=== PATIENT | female | born 1960 | race Caucasian/White ===

== ENCOUNTER 2019-06-17 20:03 | Emergency (ER) | payer MEDICARE, MEDICAID, SELFPAY ==
--- NOTE | ~2019-06-17 | XR_ITS ---
XR chest 1V portable DATE: 06/17/2019 20:35 INDICATION: Dyspnea, cough. History of COPD. TECHNIQUE: Portable upright AP chest on 06/17/2019 at 2033 hours COMPARISON: 07/09/2018 portable upright AP chest FINDINGS: There is borderline heart size, which is not optimally evaluated on AP projection because o f magnification. There is pulmonary vascular redistribution which may indicate mild pulmonary venous hypertension. There is mild patchy infiltrate and/atelectasis in the right lower lung zone. There is minimal discoi d atelectasis or scarring in the left lower lung. IMPRESSION: Borderline heart size, pulmonary vascular redistribution, which may indicate mild congest henrry change Patchy infiltrate and/atelectasis in the right lower lung primarily Reviewed, dictated and finalized at location A. IMPRESSION: Borderline heart size, pulmonary vascular redistribution, which may indicate mild congestive change Patchy infiltrate and/atelectasis in the right lower lung primarily
--- NOTE | ~2019-06-17 | CT_ITS ---
EXAMINATION: CT abdomen pelvis wo con DATE: 06/17/2019 20:51 INDICATION: Abdominal pain TECHNIQUE: Computed tomography (CT) of the abdomen and pelvis was performed without intravenous contr ast. Automated exposure control and iterative reconstruction technique were employed. Exam dose: 148 9.56 mGy-cm total exam DLP. COMPARISON: 05/11/2016 CT scan of the abdomen and pelvis FINDINGS: There is discoid atelectasis and/or scarring in the lower lung zones, most prominent in the middle lobe. Some of this in the middle lobe is chronic, with calcification. Calcified right hilar and subcarinal nodes, as well as calcified hepatic and splenic granulomas consi stent with old granulomatous disease Coronary artery calcification. Status post cholecystectomy. No hepatic, splenic, pancreatic, and adrenal or renal space-occupying ma ss lesion is detected. Bilateral diffuse renal atrophy. Small calcified calculus of the upper pole of the right kidney is noted. There are bilateral renal ar yisel calcifications. No ureteral calculus or hydroureteronephrosis. No bowel obstruction, pneumatosis or intraperitoneal free air. Abdominal aortic, celiac, superior mesenteric, renal and inferior mesenteric as well as iliac and fem oral extensive arterial calcifications are noted. No abdominal aortic aneurysm. No intraperitoneal or retroperitoneal or pelvic mass lesion or adenopathy or ascites. Diffuse idiopathic skeletal hyperostosis of the thoracic spine. No suspicious osteolytic or osteoblas tic lesions. IMPRESSION: Discoid atelectasis and/or scarring in the lower lung zones, particularly the Old granulomatous disease Coronary artery calcification Status post cholecystectomy Bilateral diffuse renal atrophy; small nonobstructing upper pole right renal calculus Extensive atherosclerotic calcifications Diffuse idiopathic skeletal hyperostosis Reviewed, dictated and finalized at [facility]. Reviewed, dictated and finalized at location A. IMPRESSION: Discoid atelectasis and/or scarring in the lower lung zones, parti cularly the Old granulomatous disease Coronary artery calcification Status post cholecystectomy Bilateral diffuse renal atrophy; small nonobstructing upper pole right renal ca lculus Extensive atherosclerotic calcifications Diffuse idiopathic skeletal hyperostosis
[2019-06-17 20:21] VITALS: BP 175/92; PULSE 92; RESP 22; TEMP 36.2; O2SAT 94
--- NOTE | 2019-06-17 20:29 | ECG_ITS ---
Measurements Intervals [place] Rate: 84 P: 11 WV: 209 QRS: -54 QRSD: 86 T: 42 QT: 375 QTc: 445 Interpretive Statements SINUS RHYTHM WITH FIRST DEGREE AV BLOCK LEFT AXIS DEVIATION ANTEROSEPTAL INFARCT, AGE INDETERMINATE BASELINE ARTIFACT- III ABNORMAL ECG Electronically Signed On 06-18-2019 7:12:21 CDT by Vincenzo Huddleston D.O.
[2019-06-17] MEDS: ALBUTEROL SULFATE (*SP) INHALER 2 PUFF INHALATION (20:57)
[2019-06-17] MEDS: ONDANSETRON INJ 4 MG/2 ML VIAL IV PUSH (20:57)
--- NOTE | 2019-06-17 21:26 | PC.NURSE ---
per edp hold on iv fluids at this time.
[2019-06-17 21:37] LABS: Base Excess ABG 0.9 mmol/L (0-2); HCO3 ABG 25.7 mmol/L (23-29); Oxygen Content ABG 14.2 %vol (16.0-22.0); Oxygen Saturation ABG 91.2 % (95-97); Oxyhemoglobin 90.7 % (94-100); PCO2 ABG 42.1 mmHg (35-45); PO2 ABG 60.3 mmHg (80-90); Total Hemoglobin 11.1 g/dL
[2019-06-17 21:38] LABS: Device ROOM AIR; Modified Allen's Test Pass; Site Drawn RIGHT RADIAL
[2019-06-17 21:48] LABS: Basophils Absolute Auto 0.05 K/mm3 (0.00-0.10); Basophils Percent Auto 0.4 % (0.0-1.0); Eosinophils Absolute Auto 0.14 K/mm3 (0.02-0.50); Eosinophils Percent Auto 1.2 % (1.0-6.0); Hematocrit 31.7 % (35.0-49.0); Hemoglobin 10.3 g/dL (12.0-15.0); Immature Granulocyte Absolute 0.05 K/mm3 (0.00-0.00); Immature Granulocyte Percent A 0.4 % (0.0-0.0); Lymphocytes Absolute Auto 0.75 K/mm3 (1.10-4.50); Lymphocytes Percent Auto 6.4 % (18.0-42.0); Mean Corpuscular HGB Conc 32.5 g/dL (32.0-36.0); Mean Corpuscular Hemoglobin 31.1 pg (27.0-31.0); Mean Corpuscular Volume 95.8 fL (78.0-102.0); Mean Platelet Volume 9.4 fl (9.2-11.8); Monocytes Absolute Auto 0.83 K/mm3 (0.10-0.90); Neutrophils Percent Auto 84.6 % (50.0-70.0); Platelet Count Result 235 K/mm3 (150-420); Red Blood Count 3.31 M/mm3 (4.20-5.40); Red Cell Distribution Width 12.8 % (11.6-14.4); White Blood Count 11.8 K/mm3 (4.8-10.8)
[2019-06-17 21:55] VITALS: BP 147/52; PULSE 79; RESP 20; O2SAT 92
[2019-06-17 22:02] LABS: Influenza Control Valid (Valid)
[2019-06-17 22:05] LABS: Alanine Aminotransferase 24 U/L (14-59); Albumin Level 3.1 g/dL (3.4-5.0); Alkaline Phosphatase 67 U/L (46-116); Aspartate Amino Transferase 14 U/L (15-37); Bilirubin,Total 0.5 mg/dL (0.00-1.00); Blood Urea Nitrogen 50 mg/dL (7-18); Calcium 8.8 mg/dL (8.5-10.1); Carbon Dioxide 28 mmol/L (21-32); Chloride 101 mmol/L (98-108); Estimated CRCL calculation 8 ml/min; Estimated Glomerular Filt Rate 4; Glucose 166 mg/dL (70-99); Osmolality Calculated 303 mOsm/kg (285-295); Sodium 138 mmol/L (136-145); Total Protein 7.2 g/dL (6.4-8.2)
[2019-06-17 22:17] LABS: BNP 195 pg/mL (0-100)
[2019-06-17 22:22] LABS: Troponin I < 0.02 ng/mL (0.00-0.056)
[2019-06-17 22:26] VITALS: BP 141/70; PULSE 86; RESP 18; O2SAT 96
--- NOTE | 2019-06-17 22:28 | ED.URI ---
HPI - URI/Sore Throat General Chief Complaint: Upper Respiratory Infection Stated Complaint: Cough Source: patient Mode of arrival: ambulatory Limitations: no limitations History of Present Illness HPI Narrative: this is a 59-year-old female with a history of COPD and end-stage renal disease on hemodialysis along with diabetes that presents to the emergency department with a cough shortness of breath has had episodes of nausea with no vomiting and abdominal discomfort. , currently she uses some home oxygen at2L, with no fever or chills no diarrhea or constipation no dysuria no increased frequency in her urine. Patient presents with some some mild shortness of breath cough that is mildly productive clear sputum. MD elicited complaint: cough Onset (ago): day(s) Consistency: intermittent Severity: mild Description of mucous: clear Able to tolerate fluids by mouth: Yes Exacerbating factors: nothing Relieving factors: nothing Associated symptoms: shortness of breath and nausea Treatments prior to arrival: none Related Data Home Medications Medication Instructions Recorded Confirmed B complex-vitamin C-folic acid 1 tablet PO DAILY 06/17/19 06/17/19 [Nephro-Vikash] alprazolam 0.5 mg PO BID 06/17/19 06/17/19 atorvastatin 20 mg PO HS 06/17/19 06/17/19 carvedilol 6.25 mg PO BID 06/17/19 06/17/19 clopidogrel 75 mg PO DAILY 06/17/19 06/17/19 hydrocodone-acetaminophen 1 tablet PO QID PRN 06/17/19 06/17/19 insulin asp prt-insulin aspart 60 unit SUBCUT BID 06/17/19 06/17/19 [Novolog Mix 70-30FlexPen U-100] levothyroxine 175 mcg PO DAILY 06/17/19 06/17/19 omeprazole 40 mg PO DAILY 06/17/19 06/17/19 paroxetine HCl 40 mg PO DAILY 06/17/19 06/17/19 sevelamer carbonate See Rx Instructions .ROUTE .COMPLEX 06/17/19 06/17/19 Allergies Allergy/AdvReac Type Severity Reaction Status Date / Time No Known Allergies Allergy Unverified 11/13/15 09:02 Review of Systems Review of Systems: All systems reviewed & are unremarkable except as noted in HPI and below PMFSH Past Medical History Medical History COPD (chronic obstructive pulmonary disease) Diabetes mellitus ESRD (end stage renal disease) on dialysis Family History Family History Father Diabetes mellitus Hypertension Cerebrovascular accident Family history of arthritis Family history of malignant neoplasm Mother Family history of malignant neoplasm Family history of diabetes mellitus in first degree relative Social History Social History Smoking status: Never smoker Alcohol intake: current Exam Const: General: no acute distress Orientation/consciousness: patient oriented x3 HENMT: Head: normal to inspection Eyes: Conjunctivae: conjunctivae normal Pupils: Equal, round and reactive pupils present Neck: Neck: normal visual inspection and no lymphadenopathy Chest: Chest palpation & inspection: normal inspection of the chest Resp: Auscultation: diminished lung sounds Cardio: Rate: regular rate Rhythm: regular rhythm GI: GI Palp: Yes Soft to palpation and Yes Tenderness to palpation present (GI) : General: Yes no CVA tenderness Urinary Catheter: Urinary Catheter: patent and draining Skin: General skin exam: normal color Rashes: no rashes Neuro: General: patient oriented x3, moves all extremities and no meningeal signs Course Course Emergency Course: Patient status has improved breathing a lot easier abdominal pain has eased and she is less nauseated. Vital Signs Vital signs: Vital Signs Temperature 36.2 C L 06/17/19 20:21 Pulse Rate 92 06/17/19 20:21 Respiratory Rate 22 H 06/17/19 20:21 Blood Pressure 175/92 H 06/17/19 20:21 Pulse Oximetry 94 06/17/19 20:21 Temperature 36.2 C L 06/17/19 20:21 Pulse Rate 86 06/17/19 22:26 Respiratory Rate 18 04/2
[2019-06-17 22:49] VITALS: BP 141/73; PULSE 84; RESP 22; O2SAT 94
== END 2019-06-17 22:50 | disposition home or self-care (01) ==
PROVIDERS: Emergency Provider Emergency Medicine; PCP Internal Medicine
DX: J06.9 Acute upper respiratory infection, unspecified (principal); J44.9 Chronic obstructive pulmonary disease, unspecified; E11.9 Type 2 diabetes mellitus without complications; N18.6 End stage renal disease; Z99.2 Dependence on renal dialysis; R06.02 Shortness of breath
CPT/HCPCS: 36415; 36600; 71045; 74176; 80053; 82805; 83880; 84484; 85025; 87804; 93005; 96374; 99284; A9270; J2405

== ENCOUNTER 2019-08-09 13:14 | Outpatient (CLI) | payer MEDICARE, SELFPAY ==
[2019-08-09 14:17] LABS: Thyroid Stimulating Hormone 5.97 uIU/mL (0.36-3.74)
== END 2019-08-09 13:15 | disposition home or self-care (01) ==
LOC: CHSLAB 13:17
PROVIDERS: PCP Internal Medicine; Visit Provider Internal Medicine
DX: E03.9 Hypothyroidism, unspecified (principal)
CPT/HCPCS: 36415; 84443

== ENCOUNTER 2019-12-18 13:33 | Outpatient (CLI) | payer MEDICARE, MEDICAID, SELFPAY ==
--- NOTE | ~2019-12-18 | XR_ITS ---
XR chest 2V DATE: 12/18/2019 13:51 INDICATION: Shortness of breath. Positive Covid diagnosis. TECHNIQUE: 2 views COMPARISON: 06/17/2019 portable AP chest FINDINGS: Borderline heart size. Aortic calcification and mild unfolding. There is discoid atelectasis or scarring in the left mid and lower lung zones and right lower lung. N o pulmonary consolidation, pleural effusion, pulmonary vascular congestion or pneumothorax is evident . No pneumothorax. Surgical clips overlie the lower left cervical area. Surgical clips overlie the upper abdomen on lateral view, likely due to cholecystectomy. IMPRESSION: Mild discoid atelectasis or scarring in the mid to lower lung zones Reviewed, dictated and finalized at location A.
== END 2019-12-18 13:34 | disposition home or self-care (01) ==
LOC: CHSIMG 13:36
PROVIDERS: PCP Internal Medicine; Visit Provider Internal Medicine Pulmonary Disease
DX: R06.02 Shortness of breath (principal)
CPT/HCPCS: 71046

== ENCOUNTER 2020-09-09 10:07 | Outpatient (CLI) | payer MEDICARE, MEDICAID, SELFPAY ==
--- NOTE | ~2020-09-09 | XR_ITS ---
EXAMINATION: XR chest 2V DATE: 09/09/2020 10:47 INDICATION: Cough and shortness of breath TECHNIQUE: PA and lateral views of the chest are obtained. COMPARISON: 12/18/2019 FINDINGS: There are airspace opacities of the mid and lower lung zones superimposed on a background o f atelectasis and scarring. There is no pleural effusion or pneumothorax. The cardiomediastinal silho uette is normal. There is moderate thoracic spondylosis. Surgical clips are noted in the left neck. IMPRESSION: 1. Acute airspace opacities in the mid and lower lung zones which could reflect atelectasis versus pn eumonia. Reviewed, dictated and finalized at location B. IMPRESSION: 1. Acute airspace opacities in the mid and lower lung zones which could reflect atelectasis versus pneumonia.
[2020-09-09 10:32] LABS: Basophils Absolute Auto 0.08 K/mm3 (0.00-0.10); Basophils Percent Auto 1.1 % (0.0-1.0); Eosinophils Absolute Auto 0.17 K/mm3 (0.02-0.50); Eosinophils Percent Auto 2.3 % (1.0-6.0); Hematocrit 30.3 % (35.0-49.0); Hemoglobin 9.9 g/dL (12.0-15.0); Immature Granulocyte Absolute 0.03 K/mm3 (0.00-0.00); Immature Granulocyte Percent A 0.4 % (0.0-0.0); Lymphocytes Absolute Auto 0.81 K/mm3 (1.10-4.50); Lymphocytes Percent Auto 10.9 % (18.0-42.0); Mean Corpuscular HGB Conc 32.7 g/dL (32.0-36.0); Mean Platelet Volume 9.6 fl (9.2-11.8); Monocytes Absolute Auto 0.57 K/mm3 (0.10-0.90); Monocytes Percent Auto 7.6 % (2.0-11.0); Neutrophils Absolute Auto 5.8 K/mm3 (1.7-7.2); Neutrophils Percent Auto 77.7 % (50.0-70.0); Platelet Count Result 218 K/mm3 (150-420); Red Blood Count 3.19 M/mm3 (4.20-5.40); Red Cell Distribution Width 13.2 % (11.6-14.4); White Blood Count 7.5 K/mm3 (4.8-10.8)
[2020-09-09 11:22] LABS: Alanine Aminotransferase 25 U/L (14-59); Albumin Level 3.5 g/dL (3.4-5.0); Alkaline Phosphatase 107 U/L (46-116); Anion Gap 12 mmol/L (8-16); Aspartate Amino Transferase 21 U/L (15-37); Bilirubin,Total 0.6 mg/dL (0.00-1.00); Blood Urea Nitrogen 24 mg/dL (7-18); Carbon Dioxide 26 mmol/L (21-32); Chloride 95 mmol/L (98-108); Estimated Glomerular Filt Rate 7; Glucose 212 mg/dL (70-99); NT Pro B Type Natriuretic Pept 4501 pg/mL (0-125); Osmolality Calculated 286 mOsm/kg (285-295); Potassium 4.7 mmol/L (3.5-5.1); Sodium 133 mmol/L (136-145); Thyroid Stimulating Hormone 8.62 uIU/mL (0.36-3.74); Total Protein 6.6 g/dL (6.4-8.2)
== END 2020-09-09 10:08 | disposition home or self-care (01) ==
LOC: CHSLAB 10:11
PROVIDERS: PCP Internal Medicine; Visit Provider Internal Medicine
DX: R05 Cough (principal); R06.00 Dyspnea, unspecified; E03.9 Hypothyroidism, unspecified
CPT/HCPCS: 36415; 71046; 80053; 83880; 84443; 85025

== ENCOUNTER 2020-10-09 12:30 | Outpatient (CLI) | payer MEDICARE, MEDICAID, SELFPAY | END 2020-10-09 12:31 | disposition home or self-care (01) | LOC: CHSCARD 12:34 → CHSLAB 12:36 | PROVIDERS: PCP Internal Medicine; Visit Provider Internal Medicine | DX: R94.31 Abnormal electrocardiogram [ECG] [EKG] (principal) | CPT/HCPCS: 93306 ==

== ENCOUNTER 2021-01-02 09:49 | Outpatient (CLI) | payer MEDICARE, SELFPAY ==
[2021-01-02 10:37] LABS: Influenza A QL RT-PCR Negative (Negative); Influenza B QL RT-PCR Negative (Negative); SARS-CoV-2 RNA PCR Negative (Negative)
== END 2021-01-02 09:50 | disposition home or self-care (01) ==
LOC: CHSLAB 09:53
PROVIDERS: PCP Internal Medicine; Visit Provider Internal Medicine
DX: J06.9 Acute upper respiratory infection, unspecified (principal); Z20.822 Contact with and (suspected) exposure to COVID-19
CPT/HCPCS: 87502; C9803; U0003; U0005

== ENCOUNTER 2021-01-02 16:08 | Emergency (ER) | payer MEDICARE, MEDICAID, SELFPAY ==
[2021-01-02] VITALS (7 sets, daily range): BP systolic 169–189; BP diastolic 74–86; PULSE 80–84; RESP 20–26; TEMP 36.4–36.9; O2SAT 94–100
--- NOTE | ~2021-01-02 | XR_ITS ---
EXAMINATION: XR chest 2V EXAM DATE: 01/02/2021 17:42 INDICATION: Productive cough, worsening dyspnea x2days. TECHNIQUE: Frontal and lateral projections of the chest obtained and reviewed. Comparison is made to prior examination from 09/09/2020. FINDINGS: Small amount of linear left midlung zone atelectasis. The lungs are otherwise clear. Car diomegaly and pulmonary vascular congestion. There are no osseous abnormalities identified. Left thyr oidectomy clips. IMPRESSION: 1. Cardiomegaly, pulmonary vascular congestion. 2. Linear left midlung zone opacity likely atelectasis. Reviewed, dictated and finalized at location A. EMATICAL SCIENTIST
--- NOTE | 2021-01-02 16:22 | ECG_ITS ---
Measurements Intervals [facility] Rate: 80 P: 38 DE: 207 QRS: -55 QRSD: 89 T: 71 QT: 415 QTc: 482 Interpretive Statements SINUS RHYTHM WITH FIRST DEGREE AV BLOCK LEFT AXIS DEVIATION ANTEROSEPTAL INFARCT, AGE INDETERMINATE BASELINE ARTIFACT- I, II, III, AVR, AVL, AVF ABNORMAL ECG Electronically Signed On 01-02-2021 18:53:29 EQUITY ANALYST by Vincenzo Huddleston D.O.
--- NOTE | 2021-01-02 16:29 | ED.CHESTPAIN ---
HPI - Chest Pain General Chief Complaint: Shortness of Breath/Dyspnea Stated Complaint: SOB,Nausea Time Seen by Provider: 01/02/21 16:29 Source: patient Mode of arrival: ambulatory Limitations: no limitations History of Present Illness HPI narrative: 60-year-old woman with a history of COPD and congestive heart failure comes in today complaining of increasing shortness of breath, chest pain, cough productive of yellow than green sputum and left-sided chest pain. she began having rhinorrhea and nasal congestion 3 4 days ago. Shortness of breath is worsened with exertion. Chest pain is worsened with coughing and taking a deep breath. She has had no vomiting, hemoptysis, fever, chills, abdominal pain, or syncope. MD complaint: chest pain Pertinent past history: other ( COPD) Onset (ago): day(s) (2) Timing of current episode: constant and increasing Prior episodes: No Onset: during rest Pain location: left chest Pain radiation: none Severity: moderate Quality: tightness and dull Relieving factors: nothing Exacerbating factors: other ( cough) Associated symptoms: nausea and dyspnea Risk Factors Coronary artery disease risk factors: diabetes, smoking history, hyperlipidemia and hypertension Pulmonary embolism risk factors: morbid obesity Related Data On Oral Contraceptives: No Home Medications Medication Instructions Recorded Confirmed B complex-vitamin C-folic acid 1 tablet PO DAILY 06/17/19 01/02/21 [Nephro-Vikash] alprazolam 0.5 mg PO BID 06/17/19 01/02/21 atorvastatin 20 mg PO HS 06/17/19 01/02/21 carvedilol 12.5 mg PO BID 06/17/19 01/02/21 clopidogrel 75 mg PO DAILY 06/17/19 01/02/21 hydrocodone-acetaminophen 1 tablet PO QID PRN 06/17/19 01/02/21 insulin asp prt-insulin aspart 65 unit SUBCUT BID 06/17/19 01/02/21 [Novolog Mix 70-30FlexPen U-100] levothyroxine 175 mcg PO DAILY 06/17/19 01/02/21 omeprazole 40 mg PO DAILY 06/17/19 01/02/21 paroxetine HCl 40 mg PO DAILY 06/17/19 01/02/21 sevelamer carbonate See Rx Instructions .ROUTE .COMPLEX 06/17/19 01/02/21 B complex-vitamin C-folic acid 0.8 tablet PO DAILY 01/02/21 01/02/21 [Deepa-Vikash] kzhyzoonvo-aszkmjxb-ehekxeytxr 2 inh INHALATION BID 01/02/21 01/02/21 [Breztri Aerosphere] montelukast 10 mg PO DAILY 01/02/21 01/02/21 Allergies Allergy/AdvReac Type Severity Reaction Status Date / Time No Known Allergies Allergy Unverified 11/13/15 09:02 Review of Systems Review of Systems: All systems reviewed & are unremarkable except as noted in HPI and below Constitutional: Constitutional: Denies chills and Denies fever(s) Eyes: Eyes: Denies change in vision and Denies photophobia ENT: Reports nasal congestion and Denies sore throat Cardiovascular: Cardiovascular: Reports chest pain, Denies rapid heart rate and Denies radiating jaw, neck or arm pain Respiratory: Respiratory: Reports cough, Reports dyspnea and Reports wheezing Gastrointestinal: Gastrointestinal: Denies abdominal pain, Denies diarrhea, Reports nausea and Denies vomiting Genitourinary: Genitourinary: Denies nocturia and Denies dysuria Musculoskeletal: Musculoskeletal: Reports back pain, Denies arthralgias and Denies joint swelling Integumentary/Breasts: Skin/Breast: Denies pruritus, Denies erythema and Denies rash Neurologic: Denies vertigo, Denies dizziness and Denies syncope Endocrine: Endocrine: Denies polydipsia and Denies polyuria Hematologic/Lymphatic: Hematologic/Lymphatic: Denies easy bleeding and Denies easy bruising Allergic/Immunologic: Allergic/Immunologic: Denies lip swelling and Denies throat swelling [facility] Past Medical History Medical History (Updated 01/02/21 @ 18:32 by Raúl Triplett MD) COPD (chronic obstructive pulmonary disease) Diabetes mellitus ESRD (end stage renal disease) on dialysis Surgical History Surgical History (Updated 01/02/21 @ 17:12 by Raúl Triplett MD) History of x2 History of thyroid surgery Hx of appendectomy S/P cho
[2021-01-02] MEDS: ALBUTEROL SULFATE NEB 2.5 MG/3 ML INH INHALATION (17:01)
[2021-01-02 17:17] LABS: Basophils Absolute Auto 0.05 K/mm3 (0.00-0.10); Basophils Percent Auto 0.4 % (0.0-1.0); Eosinophils Absolute Auto 0.22 K/mm3 (0.02-0.50); Eosinophils Percent Auto 1.9 % (1.0-6.0); Hematocrit 33.2 % (35.0-49.0); Hemoglobin 10.8 g/dL (12.0-15.0); Immature Granulocyte Absolute 0.04 K/mm3 (0.00-0.00); Immature Granulocyte Percent A 0.3 % (0.0-0.0); Lymphocytes Absolute Auto 0.49 K/mm3 (1.10-4.50); Lymphocytes Percent Auto 4.1 % (18.0-42.0); Mean Corpuscular HGB Conc 32.5 g/dL (32.0-36.0); Mean Corpuscular Hemoglobin 30.1 pg (27.0-31.0); Mean Corpuscular Volume 92.5 fL (78.0-102.0); Mean Platelet Volume 9.5 fl (9.2-11.8); Monocytes Absolute Auto 0.71 K/mm3 (0.10-0.90); Neutrophils Absolute Auto 10.3 K/mm3 (1.7-7.2); Neutrophils Percent Auto 87.3 % (50.0-70.0); Platelet Count Result 228 K/mm3 (150-420); Red Blood Count 3.59 M/mm3 (4.20-5.40); Red Cell Distribution Width 14.6 % (11.6-14.4); White Blood Count 11.8 K/mm3 (4.8-10.8)
[2021-01-02 17:28] LABS: Base Excess ABG 2.5 mmol/L (0-2); Device NASAL CANNULA; HCO3 ABG 27.7 mmol/L (23-29); Modified Allen's Test Pass; Oxygen Content ABG 16.3 %vol (16.0-22.0); Oxygen Saturation ABG 95.7 % (95-97); Oxyhemoglobin 95.2 % (94-100); PCO2 ABG 45.4 mmHg (35-45); PO2 ABG 78.8 mmHg (80-90); Site Drawn RIGHT RADIAL; Total Hemoglobin 12.1 g/dL (12.0-18.0)
[2021-01-02 17:39] LABS: Alanine Aminotransferase 19 U/L (14-59); Albumin Level 3.3 g/dL (3.4-5.0); Alkaline Phosphatase 139 U/L (46-116); Anion Gap 10 mmol/L (8-16); Aspartate Amino Transferase 11 U/L (15-37); Bilirubin,Total 0.5 mg/dL (0.00-1.00); Blood Urea Nitrogen 19 mg/dL (7-18); Carbon Dioxide 31 mmol/L (21-32); Chloride 95 mmol/L (98-108); Estimated CRCL calculation 15 ml/min; Estimated Glomerular Filt Rate 9; Glucose 236 mg/dL (70-99); NT Pro B Type Natriuretic Pept 3516 pg/mL (0-125); Osmolality Calculated 292 mOsm/kg (285-295); Potassium 3.2 mmol/L (3.5-5.1); Sodium 136 mmol/L (136-145); Total Protein 7.5 g/dL (6.4-8.2)
[2021-01-02 17:41] LABS: Troponin I 31.4 ng/L (0.00-60.4)
--- NOTE | 2021-01-02 18:01 | PC.NURSE ---
pt unable to urinate. only produces urine in the morning.
[2021-01-02] MEDS: methylPREDNISolone SOD SUCC 40 MG VIAL 80 MG IV PUSH (18:02)
[2021-01-02] MEDS: ONDANSETRON INJ 4 MG/2 ML VIAL IV PUSH (18:03)
[2021-01-02] MEDS: ASPIRIN 81 MG CHEWABLE TABLET 324 MG PO (18:03)
--- NOTE | 2021-01-02 18:42 | PC.NURSE ---
pt resting per cot. no complaint of pain or shortness of breath. significant other at bedside with pt. call galvan in reach.
[2021-01-02] MEDS: IPRATROPIUM 0.5 MG/ALBUTEROL SULFATE 2.5 MG AMPUL.NEB 3 ML INHALATION (19:40)
== END 2021-01-02 20:38 | disposition home or self-care (01) ==
PROVIDERS: Emergency Provider Emergency Medicine; PCP Internal Medicine
DX: J44.1 Chronic obstructive pulmonary disease with (acute) exacerbation (principal); R07.89 Other chest pain; E11.9 Type 2 diabetes mellitus without complications
CPT/HCPCS: 36415; 36600; 71046; 80053; 82805; 83880; 84484; 85025; 87502; 93005; 94640; 96374; 96375; 99283; 99284; A9270; C9803; J2405; J2920; U0003; U0005

== ENCOUNTER 2021-02-24 08:29 | Outpatient (CLI) | payer MEDICARE, MEDICAID, SELFPAY ==
--- NOTE | ~2021-02-24 | XR_ITS ---
EXAMINATION: XR barium swallow DATE: 02/24/2021 09:58 INDICATION: Dysphagia TECHNIQUE: The patient drank thick barium, gas-producing crystals, and thin barium. Fluoroscopic spot radiographs of the hypopharynx and esophagus were obtained. A total of 1553 images were recorded. Fl uoroscopy exposure time was 2.3 minutes. Total DAP was 16.439 mGycm^2 COMPARISON: CT abdomen and pelvis dated 06/17/2019 FINDINGS: The pharynx is symmetric and without evidence of mass lesion or mucosal irregularity. There are clips at the left side of the neck suggesting prior left thyroidectomy. The esophagus is normal without mass or stricture. Esophageal motility is normal. There is no hiatal hernia. There was no gas troesophageal reflux with provocative maneuvers. Incidentally noted is minimal gastric emptying with only a small amount of contrast in the first and second part of the duodenum 11 minutes following the initial swallow. IMPRESSION: 1. Suggestion of possible gastroparesis with minimal gastric emptying during the 11 minutes of observ ation following the initial swallow but which is not diagnostically evaluated. Could consider nuclear gastric emptying study for more definitive/quantitative determination. 2. Otherwise unremarkable esophagram. Reviewed, dictated and finalized at location B. [facility] IMPRESSION: 1. Suggestion of possible gastroparesis with minimal gastric emptying during th e 11 minutes of observation following the initial swallow but which is not diag nostically evaluated. Could consider nuclear gastric emptying study for more de finitive/quantitative determination. 2. Otherwise unremarkable esophagram.
== END 2021-02-24 08:30 | disposition home or self-care (01) ==
LOC: CHSIMG 08:31
PROVIDERS: PCP Internal Medicine; Visit Provider Family Medicine
DX: R13.10 Dysphagia, unspecified (principal)
CPT/HCPCS: 74220

== ENCOUNTER 2022-05-20 14:39 | Outpatient (CLI) | payer MEDICARE, SELFPAY ==
[2022-05-20 15:30] LABS: SARS-CoV-2 RNA PCR Negative (Negative)
== END 2022-05-20 14:40 | disposition home or self-care (01) ==
LOC: CHSLAB 14:42
PROVIDERS: PCP Internal Medicine; Visit Provider Internal Medicine
DX: Z20.822 Contact with and (suspected) exposure to COVID-19 (principal)
CPT/HCPCS: U0003; U0005

== ENCOUNTER 2024-10-08 12:20 | Emergency (ER) | payer MEDICARE, MEDICAID, SELFPAY ==
[2024-10-08] VITALS (26 sets, daily range): BP systolic 177–211; BP diastolic 64–125; PULSE 84–88; RESP 26; TEMP 36.7; O2SAT 96–100
--- NOTE | ~2024-10-08 | XR_ITS ---
Clinical history:Shortness of breath EXAM:A single frontal image of the chest was obtained TECHNIQUE:A single frontal image of the chest was obtained Comparisons:Chest 2 views 01/02/2021 FINDINGS: Cardiomediastinal silhouette is moderately enlarged, unchanged. No pneumothorax. Clips project over t he left side of the neck, unchanged. Confluent opacities in the lower hemithoraces. Differential includes a combination of pleural fluid w ith adjacent atelectasis and/or consolidation. An underlying mass is possible. Consider a chest CT fo r further assessment. Small opacities in the mid lungs which represents atelectasis or airspace disease. IMPRESSION: Confluent opacities in the lower hemithoraces. Differential includes a combination of pleural fluid w ith adjacent atelectasis and/or consolidation. An underlying mass is possible. Consider a chest CT fo r further assessment. Follow-up is recommended. Small opacities in the mid lungs which represents atelectasis or airspace disease. Follow-up is recom mended. Reviewed, dictated and finalized at location A. IMPRESSION: Confluent opacities in the lower hemithoraces. Differential includes a combinat ion of pleural fluid with adjacent atelectasis and/or consolidation. An underly ing mass is possible. Consider a chest CT for further assessment. Follow-up is recommended. Small opacities in the mid lungs which represents atelectasis or airspace disea se. Follow-up is recommended.
--- NOTE | 2024-10-08 12:36 | ED_ITS ---
HPI - SOB/Dyspnea General Chief Complaint: Shortness of Breath/Dyspnea Stated Complaint: Short of Breathe Time Seen by Provider: 10/08/24 12:36 Source: patient Mode of arrival: ambulatory Limitations: no limitations History of Present Illness HPI Narrative: Patient is a 64-year-old female with shortness of breath over the past day. She has gotten acutely short of breath today. No chest pain. She is on home oxygen at 2 L nasal cannula 24 hours a day. She has COPD and CHF. She is a dialysis patient and she gets dialysis Tuesday and got it done this morning. She was short of breath prior to dialysis. MD elicited complaint: shortness of breath Pertinent past history: COPD, congestive heart failure and other ( End-stage renal disease with dialysis Tuesday) Onset (ago): day(s) ( 1) Context: other ( patient having progressively worse shortness of breath throughout the day even after dialysis today per) Timing: constant Severity: moderate Exacerbating factors: nothing Relieving factors: nothing Known history of: COPD and congestive heart failure Associated symptoms: denies other symptoms Treatment prior to arrival: oxygen ( chronic) Related Data Home oxygen amount: 2 liters Home Medications ?Medication ?Instructions ?Recorded ?Confirmed ?Last Taken ?Type atorvastatin 20 mg tablet 20 mg PO HS 06/17/19 10/08/24 10/07/24 History clopidogrel 75 mg tablet 75 mg PO DAILY 06/17/19 10/08/24 10/07/24 History hydrocodone 7.5 mg-acetaminophen 1 tablet PO QID PRN Pain 06/17/19 10/08/24 Unknown History 325 mg tablet insulin aspar prot-insulin aspart 65 unit subcut BID 06/17/19 10/08/24 10/08/24 History 100 unit/mL (70-30) subcutaneous pen (Novolog Mix 70-30FlexPen U-100) levothyroxine 175 mcg tablet 175 mcg PO DAILY 06/17/19 10/08/24 10/07/24 History omeprazole 40 mg capsule,delayed 40 mg PO DAILY 06/17/19 10/08/24 10/07/24 History release paroxetine HCl 40 mg tablet 40 mg PO DAILY 06/17/19 10/08/24 10/07/24 History sevelamer carbonate 800 mg tablet See Rx Instructions .Route .COMPLEX 04/10/08/24 10/07/24 History budesonide 160 mcg-glycopyr 9 2 inh inhalation BID 01/02/21 10/08/24 09/07/24 History mcg-formot 4.8 mcg/actuation HFA inhaler (Breztri Aerosphere) montelukast 10 mg tablet 10 mg PO DAILY 01/02/21 10/08/24 10/07/24 History vitamin B complex-vitamin C-folic 0.8 tablet PO DAILY 01/02/21 10/08/24 10/07/24 History acid 0.8 mg tablet (Deepa-Vikash) amlodipine 5 mg tablet 5 mg PO DAILY 10/08/24 10/08/24 10/08/24 History apixaban 5 mg tablet (Eliquis) 5 mg PO Q12H 10/08/24 10/08/24 10/08/24 History diltiazem HCl 180 mg 180 mg PO Q24H 10/08/24 10/08/24 10/07/24 History capsule,extended release 24 hr, controlled (DILT-XR) metoclopramide HCl 10 mg tablet 10 mg PO PRN 10/08/24 10/08/24 10/01/24 History ondansetron 4 mg disintegrating 4 mg PO PRN 10/08/24 10/08/24 10/01/24 History tablet umeclidinium 62.5 mcg-vilanterol 1 inh inhalation Q24H 10/08/24 10/08/24 10/07/24 History 25 mcg/actuation powdr for inhalation (Anoro Ellipta) Allergies Allergy/AdvReac Type Severity Reaction Status Date / Time No Known Allergies Allergy Unverified 10/08/24 22:18 Review of Systems 2 Review of Systems: All systems reviewed & are unremarkable except as noted in HPI and below Constitutional: Constitutional: Reports no additional constitutional complaints Eyes: Eyes: Reports no additional eye complaints ENT: Reports system reviewed and no additional complaints, except as documented Cardiovascular: Cardiovascular: Reports no additional cardiovascular complaints Respiratory: Respiratory: Reports no additional respiratory complaints Gastrointestinal: Gastrointestinal: Reports no additional gastrointestinal complaints Genitourinary: Genitourinary: Reports no additional female genitourinary complaints Musculoskeletal: Musculoskeletal: Reports no additional musculoskeletal complaints Integumentary/Breasts: Skin/Breast: Reports system reviewed and no additional complaints, except as docu Neurologic: Reports system reviewed and no additional complaints, except as documented Psychiatric: Psychiatric: Reports no additional psychiatric complaints Endocrine: Endocrine: Reports no additional endocrine complaints Hematologic/Lymphatic: Hematologic/Lymphatic: Reports no additional hematologic/lymphatic complaints Allergic/Immunologic: Allergic/Immunologic: Reports no additional allergic/immunologic complaints PMFSH Past Medical History Medical History ESRD (end stage renal disease) on dialysis COPD (chronic obstructive pulmonary disease) Diabetes mellitus Surgical History Surgical History S/P cholecystectomy History of thyroid surgery History of x2 Hx of appendectomy Family History Family History Father Diabetes mellitus Hypertension Cerebrovascular accident Family history of arthritis Family history of malignant neoplasm Mother Family history of malignant neoplasm Family history of diabetes mellitus in first degree relative Social History Social History Smoking status: Never smoker Alcohol intake: current Substance use: current Substance use type: marijuana Other substance usage details: occasion Living arrangements: with family Exam 2 Const: General: healthy appearing Nutritional Appearance: well nourished Orientation/consciousness: patient oriented x3 Limitations: no limitations HENMT: Head: normal to inspection Ears: external ears normal F lily/Nose/Sinus: Normal external nose present Eyes: Conjunctivae: conjunctivae normal Pupils: Equal, round and reactive pupils present EOM: EOMs intact bilaterally Neck: Neck: normal visual inspection Chest: Chest palpation & inspection: normal inspection of the chest Resp: Effort & Inspection: normal respiratory effort and not labored A uscultation: clear to auscultation bilaterally, crackles, no rales, rhonchi, no wheezes, breath sounds present and diminished lung sounds Other: adventitious sounds were heard at the bases to the mid lung bilaterally Cardio: Rate: regular rate Rhythm: regular rhythm Heart sounds: no murmurs GI: Inspection: non-distended GI Palp: Yes Soft to palpation and No Tenderness to palpation present (GI) Auscultation: normal bowel sounds : General: Yes bladder normal to palpation Back/Spine/Pelvis: Back: no CVA tenderness Skin: General skin exam: normal color Rashes: no rashes Wounds: no wounds Neuro: General: patient oriented x3, moves all extremities and no meningeal signs Cranial nerves: Yes Nystagmus not present Speech: normal speech G ait exam (Neuro): Normal gait present Extrem: General: normal to inspection Psych: Mental Status: mental status grossly normal Affect: normal affect Attitude: cooperative Course Vital Signs Vital signs: Vital Signs Temperature 36.7 C 10/08/24 12:23 Pulse Rate 88 10/08/24 12:23 Respiratory Rate 26 H 10/08/24 12:23 Blood Pressure 196/74 H 10/08/24 12:23 Pulse Oximetry 98 10/08/24 12:23 Oxygen Delivery Nasal Cannula 10/08/24 12:23 Oxygen Flow Rate 2 10/08/24 12:23 Temperature 36.7 C 10/08/24 12:23 Pulse Rate 88 10/08/24 15:16 Respiratory Rate 26 H 10/08/24 12:23 Blood Pressure 190/76 H 10/08/24 21:01 Pulse Oximetry 99 10/08/24 21:01 Oxygen Delivery Nasal Cannula 10/08/24 21:01 Oxygen Flow Rate 2 10/08/24 21:01 MDM - SOB/Dyspnea MDM Narrative Medical decision making narrative: patient is a 64-year-old female with shortness of breath before and after her dialysis today. We will do a pulmonary cardiac workup at this time. Patient was found to have pneumonia process and she does dialysis so she will need to be transferred for higher level medical care. Lab Data Attestation: I reviewed the patient's lab results. 10/08/24 13:19 10/08/24 13:19 Labs: Lab Results 10/08/24 10/08/24 10/08/24 Range/Units 12:51 13:15 13:19 WBC 12.1 H (4.8-10.8) K/mm3 RBC 3.72 L (4.20-5.40) M/mm3 Hgb 10.5 L (12.0-15.0) g/dL Hct 31.8 L (35.0-49.0) % MCV 85.5 (78.0-102.0) fL MCH 28.2 (27.0-31.0) pg MCHC 33.0 (32-36) g/dL RDW 13.3 (11.6-14.4) % Plt Count 234 (150-420) K/mm3 MPV 9.1 L (9.2-11.8) fl Immature Gran % (Auto) 0.4 H (0.0-0.0) % Neut % (Auto) 88.3 H (50.0-70.0) % Lymph % (Auto) 3.0 L (18.0-42.0) % [place] % (Auto) 7.5 (2.0-11.0) % Eos % (Auto) 0.4 L (1.0-6.0) % Baso % (Auto) 0.4 (0.0-1.0) % Lymph # (Auto) 0.36 L (1.10-4.50) K/mm3 [place] # (Auto) 0.90 (0.10-0.90) K/mm3 Eos # (Auto) 0.05 (0.02-0.50) K/mm3 Baso # (Auto) 0.05 (0.00-0.10) K/mm3 Abs Immat Gran (auto) 0.05 H (0.00-0.00) K/mm3 Absolute Neuts (auto) 10.64 H (1.70-7.20) K/mm3 Absolute Nucleated RBC 0.00 (0.00-0.00) K/mm3 Nucleated RBC % 0.0 (0-0.0) % Sodium 131 L (137-145) mmol/L Potassium 3.2 L (3.4-5.0) mmol/L Chloride 94 L (98-107) mmol/L Carbon Dioxide 27 (22-30) mmol/L Anion Gap 10 (4-12) mmol/L BUN 7 (7-17) mg/dL Creatinine 3.62 H (0.7-1.0) mg/dL Estim Creat Clear Calc 16 ml/min Estimated GFR 13 L (59 - ) Glucose 163 H (65-110) mg/dL Calculated Osmolality 274 L (285-295) mOsm/kg Lactic Acid 2.2 H (0.4-2.0) mmol/L Calcium 9.8 (8.4-10.2) mg/dL Total Bilirubin 1.1 (0.2-1.3) mg/dL AST 26 (14-36) U/L ALT 16 (6-35) U/L Alkaline Phosphatase 76 (38-126) U/L Troponin I 0.054 H* (0.000-0.034) ng/mL NT-Pro-B Natriuret Pep > 59980 H (19.9-100) pg/mL Total Protein 7.2 (6.3-8.2) g/dL Albumin 4.1 (3.5-5.1) g/dL Influenza A (RT-PCR) Negative (Negative) Influenza B (RT-PCR) Negative (Negative) RSV (RT-PCR) Negative (Negative) SARS-CoV-2 RNA (RT-PCR) Negative (Negative) 10/08/24 Range/Units 15:55 WBC (4.8-10.8) K/mm3 RBC (4.20-5.40) M/mm3 Hgb (12.0-15.0) g/dL Hct (35.0-49.0) % MCV (78.0-102.0) fL MCH (27.0-31.0) pg MCHC (32-36) g/dL RDW (11.6-14.4) % Plt Count (150-420) K/mm3 MPV (9.2-11.8) fl Immature Gran % (Auto) (0.0-0.0) % Neut % (Auto) (50.0-70.0) % Lymph % (Auto) (18.0-42.0) % [place] % (Auto) (2.0-11.0) % Eos % (Auto) (1.0-6.0) % Baso % (Auto) (0.0-1.0) % Lymph # (Auto) (1.10-4.50) K/mm3 [place] # (Auto) (0.10-0.90) K/mm3 Eos # (Auto) (0.02-0.50) K/mm3 Baso # (Auto) (0.00-0.10) K/mm3 Abs Immat Gran (auto) (0.00-0.00) K/mm3 Absolute Neuts (auto) (1.70-7.20) K/mm3 Absolute Nucleated RBC (0.00-0.00) K/mm3 Nucleated RBC % (0-0.0) % Sodium (137-145) mmol/L Potassium (3.4-5.0) mmol/L Chloride (98-107) mmol/L Carbon Dioxide (22-30) mmol/L Anion Gap (4-12) mmol/L BUN (7-17) mg/dL Creatinine (0.7-1.0) mg/dL Estim Creat Clear Calc ml/min Estimated GFR (59 - ) Glucose (65-110) mg/dL Calculated Osmolality (285-295) mOsm/kg Lactic Acid 0.7 (0.4-2.0) mmol/L Calcium (8.4-10.2) mg/dL Total Bilirubin (0.2-1.3) mg/dL AST (14-36) U/L ALT (6-35) U/L Alkaline Phosphatase (38-126) U/L Troponin I (0.000-0.034) ng/mL NT-Pro-B Natriuret Pep (19.9-100) pg/mL Total Protein (6.3-8.2) g/dL Albumin (3.5-5.1) g/dL Influenza A (RT-PCR) (Negative) Influenza B (RT-PCR) (Negative) RSV (RT-PCR) (Negative) SARS-CoV-2 RNA (RT-PCR) (Negative) Imaging Data Attestation: I personally reviewed and interpreted this imaging study as follows: Radiologist's impression: Chest x-ray shows IMPRESSION: Confluent opacities in the lower hemithoraces. Differential includes a combination of pleural fluid with adjacent atelectasis and/or consolidation. An underlying mass is possible. Consider a chest CT for further assessment. Follow- up is recommended. Small opacities in the mid lungs which represents atelectasis or airspace disease. Follow-up is recommended. ECG Data EKG #1: Attestation: I personally reviewed and interpreted this ECG as follows: ECG completion date: 10/08/24 ECG completion time: 22:36 EKG Interpretation: normal rate, sinus rhythm, no ectopy, non-specific ST changes, normal QRS, normal QT and NL axis Discharge Plan Discharge Clinical Impression: Abnormal chest x-ray, ESRD (end stage renal disease) on dialysis, Elevated troponin, Chronic hypoxic respiratory failure, on home oxygen therapy Pneumonia Qualifiers: Pneumonia type: due to unspecified organism Laterality: bilateral Lung location: lower lobe of lung Qualified Code(s): J18.9 - Pneumonia, unspecified organism Acute exacerbation of CHF (congestive heart failure) Qualifiers: Heart failure type: unspecified Qualified Code(s): I50.9 - Heart failure, unspecified Patient Disposition: Acute Care Hospital Condition: Stable Patient Language: Angolan Prescriptions: No Action montelukast 10 mg tablet 10 mg PO DAILY Deepa-Vikash 0.8 mg tablet 0.8 tablet PO DAILY Breztri Aerosphere 160-9-4.8 mcg/actuation HFA aerosol inhaler 2 inh INHALATION BID levothyroxine 175 mcg tablet 175 mcg PO DAILY atorvastatin 20 mg tablet 20 mg PO HS clopidogrel 75 mg tablet 75 mg PO DAILY omeprazole 40 mg capsule,delayed release(DR/EC) 40 mg PO DAILY hydrocodone-acetaminophen 7.5-325 mg tablet 1 tablet PO QID PRN (Reason: Pain) paroxetine HCl 40 mg tablet 40 mg PO DAILY insulin asp prt-insulin aspart [Novolog Mix 70-30FlexPen U-100] 100 unit/mL (70-30) insulin pen 65 unit SUBCUT BID Patient Comments: Patient states she is pretty sure they changed her dose to 35 units. sevelamer carbonate 800 mg tablet See Rx Instructions .ROUTE .COMPLEX Rx Instructions: take as prescribed amlodipine 5 mg tablet 5 mg PO DAILY Eliquis 5 mg tablet 5 mg PO Q12H diltiazem HCl [DILT-XR] 180 mg capsule,ext.rel 24h degradable 180 mg PO Q24H metoclopramide HCl 10 mg tablet 10 mg PO PRN ondansetron 4 mg tablet,disintegrating 4 mg PO PRN umeclidinium-vilanterol [Anoro Ellipta] 62.5-25 mcg/actuation blister with device 1 inh INHALATION Q24H Follow-up/Referrals: Jabari Banda MD [Primary Care Provider] - Time of Disposition: 14:00
--- OUTSIDE RECORDS SUMMARY | 2024-10-08 13:10 | XMS_ITS | Clinical Summary ---
Author Organization [facility] Address [address] [place] [address] Phone Care Team Providers Care Sheet Rock Installation Helper Name Role Phone Provider, None Primary Care Provider Unavailabl e Allergies No known active allergies Medications Eliquis 5 MG Tablet Take 5 mg by mouth 2 times daily. 4 Active B Jghxsuk-L-Dmkrh Acid (Deepa-Vikash Rx) 1 MG Tablet Take 1 Tablet by mouth daily. 4 Active clopidogrel (PLAVIX) 75 MG Tablet Take 75 mg by mouth daily. 4 Active Dilt-XR 180 MG CAPSULE SR 24 HR Take 180 mg by mouth daily. 4 Active HYDROcodone-lily taminophen (NORCO) 7.5-325 MG Tablet Take 1 Tablet by mouth every 4 hours as needed for Moderate or more severe pain. 4 Active levothyroxine (SYNTHROID) 125 MCG Tablet Take 250 mcg by mouth daily. 4 Active metoclopramide (REGLAN) 10 MG Tablet Take 5 mg by mouth every 4 hours as needed for Nausea - 1st line. 4 Active montelukast (SINGULAIR) 10 MG Tablet Take 10 mg by mouth nightly. 4 Active PARoxetine (PAXIL) 40 MG Tablet Take 40 mg by mouth daily. 4 Active NovoLOG Mix 70/30 FlexPen (70-30) 100 UNIT/ML Suspension Pen-injector 1 Units by Subcutaneous route 3 times daily (with meals). PT UNSURE OF DOSAGE Active pantoprazole (PROTONIX) 20 MG Tablet Delayed ResponseIndicat ions:GERD Take 1 Tablet by mouth daily. Indications: GERD 90 Tablet Active Active Problems Problem Noted Date Diagnosed Date Hypertensive encephalopathy 03/15/2024 Hyperkalemia 03/13/2024 End stage renal disease on dialysis 03/13/2024 Hypertension 03/13/2024 Congestive heart failure (CHF) 03/13/2024 Type 2 diabetes mellitus 03/13/2024 A-fib 03/13/2024 Acute metabolic acidosis 03/13/2024 Social History Tobacco Use Types Packs/Day Years Used Date Smoking Tobacco: Never Assessed [facility] Utilities Answer Date Recorded In the past 12 months has th e electric, gas, oil, or water company threatened to shut off services in your home? Patient declined 03/13/2024 Hunger Vital Sign Answer Date Recorded Within the past 12 months, y ou worried that your food would run out before you got the money to buy more. Patient declined Within the past 12 months, t he food you bought just didn't last and you didn't have money to get more. Patient declined PRAPARE - Transportation Answer Date Re corded In the past 12 months, has l ack of transportation kept you from medical appointments or from getting medications? Patient declined 03/13/2024 In the past 12 months, has l ack of transportation kept you from meetings, work, or from getting things needed for daily living? Patient declined 03/13/2024 Housing Stability Vital Sign Answer Alex e Recorded In the last 12 months, was t here a time when you were not able to pay the mortgage or rent on time? Patient declined 03/13/19 25 In the past 12 months, how m any times have you moved where you were living? 1 03/13/2024 At any time in the past 12 m [facility], were you homeless or living in a [facility] (including now)? Patient declined 03/13/2024 Comments Unknown Sex and Gender Information Value Date Recorded Sex Assigned at Not on file Legal Sex Female 9:03 AM [employer] Gender Identity Not on file Sexual Orientation Not on file Last Filed Vital Signs Vital Sign Reading Time Taken Comments Blood Pressure 184/65 03/15/2024 2:00 PM [employer] Pulse 74 03/15/2024 2:00 PM [employer] Temperature 36.5 C (97.7 F) 03/15/2024 2:00 PM [employer] Respiratory Rate 18 03/15/2024 2:00 PM [employer] Oxygen Saturation 97% 03/15/2024 8:02 AM [employer] Inhaled Oxygen Concentration - - Weight 97.8 kg (215 lb 9.8 oz) 03/14/2024 2:30 P M [employer] Height 165.1 cm (5' 5) 03/13/2024 2:33 PM [employer] Body Mass Index 35.88 03/13/2024 2:33 PM [employer] Plan of Treatment Health Maintenance Due Date Last Done Comments Diabetes: Eye Exam 1960 Diabetes: Foot Exam 1960 Mammogram 1960 TdaP Immunization 1960 Pap Smear 1981 Cervical Cancer Screening (CCS) 1990 HPV/Cotest 1990 Cologuard 2005 Colonoscopy 2005 Colorectal Cancer Screening 2005 Immunochemical Fecal Occult Blood 2005 Zoster Immunization (1 of 2) 2010 Pneumococcal Immunization (50+ years) (3 of 3 - PCV) 12/19/2014 12/19/2013, 07/05/2011 Hepatitis B Immunization (3 of 3 - Hep B Twinrix 3-dose series) 09/21/2016 04/21/2016, 08/27/2015 Respiratory Syncytial Virus (RSV) Immunization (Adult) (1 - Risk 60-74 years 1-dose series) 2020 SARS-COV-2 Immunization ( season) 2023 Diabetes: Hemoglobin A1c 09/11/2024 03/14/2024, 07/0 06/2023 Influenza Immunization (#1) 2024 08/3 , 12/13/2014, 12/19/2013 Diabetes: Nephropathy Screening 03/13/2025 03/13/2024 Hepatitis C Virus (HCV) Screening Completed 03/15/2024, 03/14/2024, 11/26/2019, Additional history exists Human Papillomavirus (HPV) Immunization Aged Out No longer eligible based on patient's age to complete this topic Meningococcal Immunization (ACWY) Aged Out No longer eligible based on patient's age to complete this topic Rotavirus Immunization Aged Out No lo nger eligible based on patient's age to complete this topic Procedures Procedure Name Priority Date/Time Associated Diagnosis Comments HEPATITIS C RNA QUANT PCR VIRAL LOAD Routine 03/15/2024 5:50 AM [employer] HEMOGLOBIN A1C W/ ESTIMATED GLUCOSE Routine 03/14/2024 4:22 AM [employer] CMP (COMPREHENSIVE METABOLIC PANEL) 03/13/2024 12:00 AM [employer] from Last 3 Months or Most Recently Relevant to Health Maintenance Results * HEPATITIS C RNA QUANT PCR VIRAL LOAD (03/15/2024 5:50 AM SUPERVISOR PA[employer]ROLL) Pathologist [facility] HCV RNA QUANT PCR NON DETECTED NON DETECTED 03/15/2024 11:56 PM [employer] [facility] HCV RNA QT LOG10 03/15/2024 11:56 PM [employer] [facility] Comment: LOG 10 is not applicable. This test was performed using IRON 5800 Real Time PCR. Blood Venipuncture / Unknown 03/15/2024 5:50 AM SUPERVISOR [employer] 03/15/2024 5:59 AM [employer] us Crystal Amador MD IMMUNOLOGY ORDERABLES F inal Result [facility] [address] [place] [address], * (ABNORMAL) HEMOGLOBIN A1C W/ ESTIMATED GLUCOSE (03/14/2024 4:22 AM SUPERVISOR [employer]) Pathologist [facility] HGB-A1C 6.4(H) 4.0 - 6.0 % 03/14/2024 6:12 AM SUPERVISOR [employer]LL [facility] Est Average Glucose 137.0 mg/dL 03/14/2024 6:12 AM SUPER[employer]OR [employer] [facility] Blood Venipuncture / Unknown 03/14/2024 4:22 AM SUPERVISOR [employer] 03/14/2024 5:45 AM [employer]PERVISOR [employer] Narrative [facility] - 03/14/2024 6:12 AM [employer] HEMOGLOBIN A1C: DIABETIC PATIENTS: WELL-CONTROLLED: 6.2 - 7.0 INTERMEDIATE WELL-CONTROLLED: 7.0 - 9.0 POORLY-CONTROLLED: >9.0 Specimens containing greater than 5% of Hemoglobin F may result in lower than expected % HbA1C results. us Jillian Castillo PINKING MACHINE OPERATOR, QUARRY EXTRACTION WORKER CHEMISTRY ORDERABLES Final Result [facility] [place] [address] * CMP (COMPREHENSIVE METABOLIC PANEL) (03/13/2024 12:00 AM SUPERVIS[employer]) 03/13/2024 us Provider Scan CHEMISTRY ORDERABLES Final Resul t SCAN from Last 3 Months or Most Recently Relevant to Health Maintenance Insurance [address] [place] [address] MEDICAID [place] Advance Directives * Full Code (Latest Code Status on File) Date Activated Date Inactivated Comments 03/13/2024 6:23 PM CPR-Full Treat ment: FULL ARREST: Attempt Resuscitation/CPR wit intubation and mechanical ventilation. PRE-ARREST: Use entire range of life support measures to stabilize the patient. Care Teams Sheet Rock Installation Helper Relationship Specialty Start Date End Date Provider, None [place] PCP - General 03/13/24
--- OUTSIDE RECORDS SUMMARY | 2024-10-08 13:10 | XMS_ITS | Clinical Summary ---
Author Organization [facility] Address [address] [place] [address] Care Team Providers Care Polysilicon Preparation Worker Name Role Phone Jabari Banda MD Primary Care Provider [phone] Christine Stevens RN Unavailable [phone] Mily Vance JINGLE WRITER-CREDIT RISK MODELER Unavailable + Darby Del Real RN Unavailable Unavailable Kaity Bowens Unavailable Unavailable Source Comments [facility],non-owned Affiliates and Associated Physician Practices is amultiple site organization consisting of ambulatory clinics and hospital sitesin [place], [place], [place] and [place]. This disclosure is being madepursuant to the Care Everywhere program and may not contain all information available regarding this patient. Last updated 17.[facility] Allergies No known active allergies Medications * Be aware that medications may not be up to date on this document. Alwaysverify current medications with the patient. PARoxetine (PAXIL) 40 MG tablet Take 40 mg by mouth once daily Active hydrocodone-ac etaminophen (NORCO) 5-325 MG tablet Take 1 Tab by mouth 2 times daily Active ALPRAZolam (XANAX) 1 MG tablet Take 1 mg by mouth 2 times daily Active atorvastatin (LIPITOR) 20 MG tablet Take 20 mg by mouth at bedtime Active levothyroxine (SYNTHROID) 125 MCG tablet Take 250 mcg by mouth daily before breakfast Active clopidogrel (PLAVIX) 75 MG tablet Take 75 mg by mouth once daily Active vitamin D3 1000 UNITS Take 1 Tab by mouth once daily 30 Tab 1 6 Active Chromium-Cinna mon (CINNAMON PLUS CHROMIUM) 100-500 MCG-MG Take 1,000 mg by mouth 2 times daily Active albuterol (PROVENTIL;TERRI TOLIN) (2.5 MG/3ML) 0.083% nebulizer solution Inhale 1 Vial by mouth 3 times daily as needed for Shortness of Breath or Wheezing Active acetaminophen (TYLENOL) 325 MG tablet Take 2 Tabs by mouth every 4 hours as needed Maximum allowable Acetaminophen amount = 4 Grams (4000 mg) / 24 hours. 6 Active famotidine (PEPCID) 20 MG tablet Take 1 Tab by mouth once daily 6 Active hydrALAZINE (APRESOLINE) 50 MG tablet Take 1 Tab by mouth 3 times daily 90 Tab 0 6 Active albuterol HFA (PROVENTIL;TERRI TOLIN;PROAIR) 108 (90 BASE) MCG/ACT inhaler Inhale 2 Puffs by mouth every 4 hours as needed for Shortness of Breath or Wheezing 1 Inhaler 1 6 Active felodipine CR 24hr (PLENDIL) 10 MG tablet Take 10 mg by mouth at bedtime 6 Active ONETOUCH ULTRA TEST STRIPS test strip USE ONE STRIP TO TEST BLOOD SUGAR TWICE DAILY 5 6 Active BD PEN NEEDLE BRAYDEN U/F 32G X 4 MM MISC USE TO INJECT INSULIN TWICE A DAY 5 6 Active promethazine (PHENERGAN) 25 MG tablet Take 25 mg by mouth every 6 hours as needed pain 0 6 Active insulin aspart protamine & aspart 70/30 (NOVOLOG MIX 70/30 FLEXPEN) pen Inject 30 Units subcutaneously 2 times daily with morning and evening meal 1 Box 0 6 Active carvedilol (COREG) 25 MG tablet Take 1 Tab by mouth 2 times daily with morning and evening meal 6 Active Active Problems Problem Noted Date Diagnosed Date Acute diastolic congestive heart failure 016 Overview (08/22/2015): Added per clinical clinical documentation specialist per dc summary Dr. Lee . Acute respiratory failure 08/17/2015 Diabetes mellitus type II, uncontrolled 08/17/19 16 ESRD (end stage renal disease) 08/17/2015 Morbid obesity 08/17/2015 Social History Tobacco Use Types Packs/Day Years Used Date Smoking Tobacco: Former Cigarettes Q uit: 05/02/2015 Tobacco Cessation:Counseling Given: Yes Alcohol Use Standard Drinks/Week Comments No 0 (1 standard drink = 0.6 oz pur e alcohol) Comments No Sex and Gender Information Value Date Recorded Sex Assigned at Not on file Legal Sex Female 9:41 AM FINISHED GOODS PLANNER Gender Identity Not on file Sexual Orientation Not on file Last Filed Vital Signs Vital Sign Reading Time Taken Comments Blood Pressure 147/80 08/21/2015 12:19 PM CDT Pulse 73 08/21/2015 12:19 PM CDT Temperature 36.7 C (98.1 F) 08/21/2015 12:19 PM CDT Respiratory Rate 20 08/21/2015 12:19 PM CDT Oxygen Saturation 95% 08/21/2015 12:19 PM CDT Inhaled Oxygen Concentration 40% 08/17/2015 8 :00 AM CDT Weight 119.3 kg (263 lb) 09/03/2015 10:04 AM CDT Height 166.4 cm (5' 5.51) 08/12/2015 12:41 AM C DT Body Mass Index 43.08 08/12/2015 12:41 AM CDT Plan of Treatment Health Maintenance Due Date Last Done Comments COLOGUARD (AGES 45-75) - COLON CA SCREENING 1960 COLON MONITORING 1960 COLONOSCOPY - COLON CA SCREENING 1960 CT COLONOGRAPHY - COLON CA SCREENING 1960 Colorectal Cancer Screening 1960 FIT - COLON CA SCREENING 1960 FLEX SIG - COLON CA SCREENING 1960 MAMMOGRAM 1960 HIV SCREENING 05/30/1975 DTAP/TDAP/TD VACCINES (1 - Tdap) 05/30/1979 PNEUMOCOCCAL VACCINE 50+ (1 of 1 - PCV) 2010 ZOSTER VACCINE (1 of 2) 2010 Respiratory Syncytial Virus (RSV) Vaccine Pt: or over 60 yrs (1 - Risk 60-74 years 1-dose series) 2020 COVID-19 VACCINE (1 - 2023- season) 2023 DEPRESSION SCREENING 02/22/2024 INFLUENZA VACCINE (#1) 2024 HEPATITIS C SCREENING Completed 05/04/2015 , 05/04/2015, 05/02/2015, Additional history exists HEPATITIS B VACCINE Aged Out No longe r eligible based on patient's age to complete this topic HIB VACCINE Aged Out No longer eligi ble based on patient's age to complete this topic HPV VACCINE Aged Out No longer eligi ble based on patient's age to complete this topic MENINGOCOCCAL (Group B) VACCINE SHARED DECISION-MAKING Aged Out No longer eligible based on patient's age to complete this topic MENINGOCOCCAL GROUPS A/C/Y/W VACCINE Aged Out No longer eligible based on patient's age to complete this topic Procedures Procedure Name Priority Date/Time Associated Diagnosis Comments HEPATITIS C RNA QUANTITATIVE AM Draw 05/04/2015 5:40 AM CDT from Last 3 Months or Most Recently Relevant to Health Maintenance Results * HEPATITIS C RNA QUANTITATIVE PCR (05/04/2015 5:40 AM CDT) Hepatitis C Virus Quantitation [id number] IU/mL 05/07/2015 9:18 AM CDT [facility] Hepatitis C Virus Log 10 6.037 log10 IU/mL 05/07/2015 9:18 AM CDT [facility] ([facility]) Test Information Comment 05/07/2015 9:18 AM CDT [facility] Comment: The quantitative range of the assay is 15 IU/mL to 100 million IU/mL using IRON(R) TaqMan(R) HCV test, v 2.0. The limit of detection (LOD) and lower limit of quantification (LLOQ) for this assay is 15 IU/mL. Results less than the quantitative range of the assay will be reported as HCV RNA detected, less than 15 IU/mL. Blood specimen (specimen) BLOOD SPECIMEN / Unknown Lab Venipuncture / Unknown 05/04/2015 5:40 AM CDT 05/04/2015 5:46 AM CDT Narrative [facility] ([facility]) - 05/07/2015 9:18 AM CDT Performed at: [address] [place] [address] [id number] Stripping Shovel Oiler: Conrado Keane MD, Phone: [phone] Nunu Reynoso MD LAB - CHEMISTRY ORDERABLES Final Result [facility]) [address] [place] [address] from Last 3 Months or Most Recently Relevant to Health Maintenance Insurance MEDICARE MEDICAID - [place] Advance Directives * Full Code (Latest Code Status on File) Date Activated Date Inactivated Comments 08/16/2015 5:24 PM 08/21/2015 5:57 PM * Full Code Date Activated Date Inactivated Comments 08/02/2015 3:00 PM 08/08/2015 5:57 PM * Full Code Date Activated Date Inactivated Comments 05/01/2015 3:17 PM 05/04/2015 1:36 PM * Full Code Date Activated Date Inactivated Comments 05/01/2015 2:49 PM 05/01/2015 3:17 PM Care Teams Polysilicon Preparation Worker Relationship Specialty Start Date End Date Jabari Banda MD [address] [place] [address] PCP - General Internal Medicine 05/01/15 Christine Stevens, RN Rural Route Mail Carrier 05/02/15 Mily Vance, JINGLE WRITER-CREDIT RISK MODELER [address] [place] [phone] Registered Nurse - Cardiopulmonary Rehab 08/04/15 Darby Del Real RN Registered Nurse - Cardiopulmonary Rehab 08/04/15 Kaity Bowens Dialysis Liaison 08/14/15
--- OUTSIDE RECORDS SUMMARY | 2024-10-08 13:10 | XMS_ITS | Encounter Summary ---
Author Organization [facility] Address [address] [place] [address] Care Team Providers Care Supervisor Accounts Receivable Name Role Phone Jabari Banda MD Primary Care Provider [phone] Christine Stevens RN Unavailable Mily Vance BUTCHER SCULLION-STEEL RULE DIE MAKER Unavailable + Darby Del Real RN Unavailable Unavailable Kaity Bowens Unavailable Unavailable Encounter Details Date Type Department Care Team (Late st Contact Info) Description 08/11/2015 Transitional Care [facility] [address] [place] [address] Darby Del Real RN Social History Tobacco Use Types Packs/Day Years Used Date Smoking Tobacco: Former Cigarettes Q uit: 05/02/2015 Alcohol Use Standard Drinks/Week Comments Not Asked 0 (1 standard drink = 0.6 oz pur e alcohol) Comments No Sex and Gender Information Value Date Recorded Sex Assigned at Not on file Legal Sex Female 9:41 AM PERSONNEL INTERVIEWER Gender Identity Not on file Sexual Orientation Not on file documented as of this encounter Functional Status * Is person deaf or have serious hearing difficulty? Answer Date of Assessment Author No 08/08/2015 4:07 PM Arleth Millan RN * Is person blind or have serious difficulty seeing? Answer Date of Assessment Author No 08/08/2015 4:07 PM Arleth Millan RN * Does person have serious difficulty walking/climbing stairs? Answer Date of Assessment Author No 08/08/2015 4:07 PM Arleth Millan RN * Does person have difficulty dressing/bathing? Answer Date of Assessment Author No 08/08/2015 4:07 PM KISHAT Arleth Lee RN * Does person have difficulty doing errands alone? Answer Date of Assessment Author No 08/08/2015 4:07 PM Arleth Millan RN documented as of this encounter Mental Status * Does person have difficulty concentrating/remembering/making decisions? Answer Entry Date Author No 08/08/2015 4:07 PM Arleth Millan RN documented in this encounter Plan of Treatment Not on file documented as of this encounter Visit Diagnoses Not on filedocumented in this encounter Care Teams Supervisor Accounts Receivable Relationship Specialty Start Date End Date Jabari Banda MD [address] [place] [address] PCP - General Internal Medicine 05/01/15 Christine Stevens RN Network Technology Instructor 05/02/15 Mily Vance, BUTCHER SCULLION-STEEL RULE DIE MAKER [address] [place] [address] Registered Nurse - Cardiopulmonary Rehab 08/04/15 Darby Del Real RN Registered Nurse - Cardiopulmonary Rehab 08/04/15 Kaity Bowens Dialysis Liaison 08/14/15 documented as of this encounter
[2024-10-08 13:24] LABS: Hematocrit 31.8 % (35.0-49.0); Hemoglobin 10.5 g/dL (12.0-15.0); Immature Granulocyte Percent A 0.4 % (0.0-0.0); Lymphocytes Absolute Auto 0.36 K/mm3 (1.10-4.50); Mean Corpuscular HGB Conc 33.0 g/dL (32-36); Mean Corpuscular Hemoglobin 28.2 pg (27.0-31.0); Mean Corpuscular Volume 85.5 fL (78.0-102.0); Nucleated Red Blood Cells Absolute Auto 0.00 K/mm3 (0.00-0.00); Nucleated Red Blood Cells Perc 0.0 % (0-0.0); Platelet Count Result 234 K/mm3 (150-420); Red Blood Count 3.72 M/mm3 (4.20-5.40); White Blood Count 12.1 K/mm3 (4.8-10.8)
[2024-10-08 13:35] LABS: Influenza A QL RT-PCR Negative (Negative); Influenza B QL RT-PCR Negative (Negative); RSV RNA, RT-PCR Negative (Negative); SARS-CoV-2 RNA PCR Negative (Negative)
[2024-10-08 13:36] LABS: Alanine Aminotransferase 16 U/L (6-35); Albumin Level 4.1 g/dL (3.5-5.1); Alkaline Phosphatase 76 U/L (38-126); Anion Gap 10 mmol/L (4-12); Aspartate Amino Transferase 26 U/L (14-36); Bilirubin,Total 1.1 mg/dL (0.2-1.3); Blood Urea Nitrogen 7 mg/dL (7-17); Calcium 9.8 mg/dL (8.4-10.2); Carbon Dioxide 27 mmol/L (22-30); Chloride 94 mmol/L (98-107); Estimated CRCL calculation 16 ml/min; Estimated Glomerular Filt Rate 13; Glucose 163 mg/dL (65-110); Osmolality Calculated 274 mOsm/kg (285-295); Potassium 3.2 mmol/L (3.4-5.0); Sodium 131 mmol/L (137-145); Total Protein 7.2 g/dL (6.3-8.2)
[2024-10-08 13:45] LABS: NT Pro B Type Natriuretic Pept > 30000 pg/mL (19.9-100)
[2024-10-08 13:50] LABS: Troponin I 0.054 ng/mL (0.000-0.034)
--- NOTE | 2024-10-08 14:36 | PC.NURSE ---
Pt resting on stretcher in room. No complaints at this time. All needs met.
--- OUTSIDE RECORDS SUMMARY | 2024-10-08 14:38 | XMS_ITS | Encounter Summary ---
Author Organization [facility] Address [address] [place] [address] Care Team Providers Care Hay Farmer Name Role Phone Jabari Banda MD Primary Care Provider [phone] Klaus Ramos MD Unavailable [phone] Rylee Rocha MD Unavailable Sergio Ahn PA-C Unavailable [phone] Encounter Details Date Type Department Care Team (Late st Contact Info) Description 10/01/2021 Hospital Follow-up Call [facility] [address] [place] [address] Nikki Springer, RN Social History Tobacco Use Types Packs/Day Years Used Date Smoking Tobacco: Former Cigarettes 2015 Smokeless Tobacco: Never Alcohol Use Standard Drinks/Week Comments No 0 (1 standard drink = 0.6 oz pur e alcohol) AUDIT-C Answer Date Recorded Frequency of Alcohol Consumption Never 01/31/2018 Average Number of Drinks Not on file 018 Frequency of Binge Drinking Not on file 01/21 Comments Unknown Sex and Gender Information Value Date Recorded Sex Assigned at Female 03/23/2024 12:06 PM POSTDOCTORAL FELLOW Legal Sex Female 3:27 AM CDT Gender Identity Female 02/11/2023 3:50 PM POSTDOCTORAL FELLOW Sexual Orientation Not on file COVID-19 Exposure Response Date Recorded In the last 10 days, have yo u been in contact with someone who was confirmed or suspected to have Coronavirus/COVID-19? No / Unsure 09/27/2021 5:22 PM CDT documented as of this encounter Functional Status * RETIRED Are you deaf or do you have serious difficulty hearing Answer Date of Assessment Author Status No 09/27/2021 5:30 PM CDT Activ e * RETIRED Are you blind or do you have serious difficulty seeing, even when wearing glasses? Answer Date of Assessment Author Status No 09/27/2021 5:30 PM CDT Activ e * Do you have serious difficulty walking or climbing stairs? Answer Date of Assessment Author Status No 09/27/2021 5:30 PM CDT Andrey Samuel RN Active * Do you have difficulty dressing or bathing? Answer Date of Assessment Author Status No 09/27/2021 5:30 PM CDT Andrey Samuel RN Active * Because of a physical, mental, or emotional condition, do you have difficulty doing errands alone such as visiting a doctor's office or shopping? Answer Date of Assessment Author Status No 09/27/2021 5:30 PM CDT Andrey Samuel RN Active documented as of this encounter Mental Status * Because of a physical, mental, or emotional condition, do you have serious difficulty concentrating, remembering, or making decisions? Answer Entry Date Author Status No 09/27/2021 5:30 PM CDT Andrey Samuel RN Active documented in this encounter Plan of Treatment Upcoming Encounters Date Type Department Care Team (Late st Contact Info) Description 11/22/2024 3:00 PM CDT [facility] [address] [place] [phone] Sergio Ahn PA-C [address] [place] [address] documented as of this encounter Goals Goal Patient Goal Type Associated Problems Recent Progress Patient-Stated? Author Patient/family will have appropriate support at home upon discharge Lifestyle No Crystal Simms RN documented as of this encounter Visit Diagnoses Not on filedocumented in this encounter Additional Health Concerns Infection Onset Date Last Indicated Resolved Time COVID-19 Rule Out 10/21/2021 10/21/202110/2210/22/2021 2:07 PM CDT COVID-19 Rule Out 01/08/2024 01/08/2024 01/08/2024 10:52 PM POSTDOCTORAL FELLOW COVID-19 Rule Out 06/18/2024 06/18/2024 06/18/2024 8:01 AM CDT Respiratory Rule Out 06/18/2024 06/18/2024 025 8:01 AM CDT documented as of this encounter Care Teams Hay Farmer Relationship Specialty Start Date End Date Jabari Banda MD [address] [place] [address] PCP - General INTERNAL MEDICINE 12/02/15 Klaus Ramos MD [address] [place] [address] [place] Safety Coordinator CARDIOVASCULAR DISEASE 07/26/18 10/05/23 Rylee Rocha MD [address] [place] [address] Consulting Physician CARDIOVASCULAR DISEASE 10/06/23 Sergio Ahn PA-C [address] [place] [address] PHYSICIAN TAG WRITER 11/10/23 documented as of this encounter
--- OUTSIDE RECORDS SUMMARY | 2024-10-08 14:38 | XMS_ITS | Encounter Summary ---
Author Organization [facility] Address [address] [place] [address] Care Team Providers Care Customer Counter Associate Name Role Phone Jabari Banda MD Primary Care Provider [phone] Klaus Ramos MD Unavailable [phone] Rylee Rocha MD Unavailable Sergio Ahn PA-C Unavailable [phone] Encounter Details Date Type Department Care Team (Late st Contact Info) Description 12/12/2019 Hospital Follow-up Call [facility] [address] [place], [place] [phone] Jeri Youssef RN Social History Tobacco Use Types Packs/Day [...] Sex Assigned at Female 03/23/2024 12:06 PM MEDICAL DEVICE SALES Legal Sex Female 3:27 AM CDT Gender Identity Female 02/11/2023 3:50 PM MEDICAL DEVICE SALES Sexual Orientation Not on file COVID-19 Exposure Response Date Recorded In the last month, have you been in contact with someone who was confirmed or suspected to have Coronavirus / COVID-19? No / Unsure 11/26/2019 11:54 AM CDT documented as of this encounter Functional Status * RETIRED Are you deaf or do you have serious difficulty hearing Answer Date of Assessment Author Status No 11/26/2019 5:43 PM CDT Activ e * RETIRED Are you blind or do you have serious difficulty seeing, even when wearing glasses? Answer Date of Assessment Author Status No 11/26/2019 5:43 PM CDT Activ e * Do you have serious difficulty walking or climbing stairs? Answer Date of Assessment Author Status No 11/26/2019 5:43 PM CDT Yuniel Gutierrez RN Active * Do you have difficulty dressing or bathing? Answer Date of Assessment Author Status No 11/26/2019 5:43 PM CDT Yuniel Gutierrez RN Active * Because of a physical, mental, or emotional condition, do you have difficulty doing errands alone such as visiting a doctor's office or shopping? Answer Date of Assessment Author Status Yes 11/26/2019 5:43 PM CDT Yuniel Gutierrez RN Active documented as of this encounter Mental Status * Because of a physical, mental, or emotional condition, do you have serious difficulty concentrating, remembering, or making decisions? Answer Entry Date Author Status No 11/26/2019 5:43 PM CDT Yuniel Gutierrez RN Active documented in this encounter Plan of Treatment Upcoming Encounters Date Type Department Care Team (Late st Contact Info) Description 11/22/2024 3:00 PM CDT Office Visit [facility] [address] [place] [phone] Sergio Ahn PA-C [address] [place] [address] documented as of this encounter Visit Diagnoses Not on filedocumented in this encounter Additional Health Concerns Infection Onset Date Last Indicated Resolved Time COVID-19 Confirmed 11/25/2019 11/25/2019 0 12:33 AM MEDICAL DEVICE SALES COVID-19 Rule Out 09/25/2021 09/25/2021 09/26/2021 1:16 AM CDT COVID-19 Rule Out 10/21/2021 10/21/2021 10/22/2021 2:07 PM CDT COVID-19 Rule Out 01/08/2024 01/08/2024 01/08/2024 10:52 PM MEDICAL DEVICE SALES COVID-19 Rule Out 06/18/2024 06/18/2024 06/18/2024 8:01 AM CDT Respiratory Rule Out 06/18/2024 06/18/2024 025 8:01 AM CDT documented as of this encounter Care Teams Customer Counter Associate Relationship Specialty Start Date End Date Jabari Banda MD [address] [place] [phone] PCP - General INTERNAL MEDICINE 12/02/15 Klaus Ramos MD [address] [place] [address] Drain Special Effects Designer CARDIOVASCULAR DISEASE 07/26/18 10/05/23 Rylee Rocha MD [address] [place] [address] Consulting Physician CARDIOVASCULAR DISEASE 10/06/23 Sergio Ahn PA-C [address] [place] [address] PHYSICIAN TOP LIFT CUTTER 11/10/23 documented as of this encounter
--- OUTSIDE RECORDS SUMMARY | 2024-10-08 14:38 | XMS_ITS | Encounter Summary ---
Author Organization [facility] Address [address] [place] [address] Care Team Providers Care Senior Support Engineer Name Role Phone Jabari Banda MD Primary Care Provider [phone] Klaus Ramos MD Unavailable [phone] Rylee Rocha MD Unavailable Sergio Ahn PA-C Unavailable [phone] Encounter Details Date Type Department Care Team (Late st Contact Info) Description 10/28/2021 Hospital Follow-up Call [facility] Cardiovascular Care Unit [address] [place] [address] Nikki Springer, RN Social History Tobacco Use [...] Sex Assigned at Female 03/23/2024 12:06 PM DRAMATIC DIRECTOR Legal Sex Female 3:27 AM CDT Gender Identity Female 02/11/2023 3:50 PM DRAMATIC DIRECTOR Sexual Orientation Not on file COVID-19 Exposure Response Date Recorded In the last 10 days, have yo u been in contact with someone who was confirmed or suspected to have Coronavirus/COVID-19? No / Unsure 10/21/2021 1:56 PM CDT documented as of this encounter Functional Status * RETIRED Are you deaf or do you have serious difficulty hearing Answer Date of Assessment Author Status No 10/21/2021 5:00 PM CDT Activ e * RETIRED Are you blind or do you have serious difficulty seeing, even when wearing glasses? Answer Date of Assessment Author Status No 10/21/2021 5:00 PM CDT Activ e * Do you have serious difficulty walking or climbing stairs? Answer Date of Assessment Author Status Yes 10/21/2021 5:00 PM CDT Mata Bean RN Active * Do you have difficulty dressing or bathing? Answer Date of Assessment Author Status No 10/21/2021 5:00 PM CDT Mata Bean RN Active * Because of a physical, mental, or emotional condition, do you have difficulty doing errands alone such as visiting a doctor's office or shopping? Answer Date of Assessment Author Status No 10/21/2021 5:00 PM CDT Mata Bena RN Active documented as of this encounter Mental Status * Because of a physical, mental, or emotional condition, do you have serious difficulty concentrating, remembering, or making decisions? Answer Entry Date Author Status No 10/21/2021 5:00 PM CDT Mata Bean RN Active documented in this encounter Plan of Treatment Upcoming Encounters Date Type Department Care Team (Late st Contact Info) Description 11/22/2024 3:00 PM CDT Office Visit [facility] [address] [place] [phone] Sergio Ahn PA-C [address] [place] [address] documented as of this encounter Goals Goal Patient Goal Type Associated Problems Recent Progress Patient-Stated? Author Patient/family will have appropriate support at home upon discharge Lifestyle No Crystal Simms, RN Patient will return to prior living situation and remain independent in ADLs upon discharge from hospital Lifestyle Yes Edda Wolff, RN Note: Will be returning home and has assistance from boyfriend if needed documented as of this encounter Visit Diagnoses Not on filedocumented in this encounter Additional Health Concerns Infection Onset Date Last Indicated Resolved Time COVID-19 Rule Out 01/08/2024 01/08/2024 01/08/2024 10:52 PM DRAMATIC DIRECTOR COVID-19 Rule Out 06/18/2024 06/18/2024 06/18/2024 8:01 AM CDT Respiratory Rule Out 06/18/2024 06/18/2024 025 8:01 AM CDT documented as of this encounter Care Teams Senior Support Engineer Relationship Specialty Start Date End Date Jabari Banda MD [address] [place] [phone] PCP - General INTERNAL MEDICINE 12/02/15 Klaus Ramos MD [address] [place] [phone] [place] [employer] Garage Servicer CARDIOVASCULAR DISEASE 07/26/18 10/05/23 Rylee Rocha MD [address] [place] [address] Consulting Physician CARDIOVASCULAR DISEASE 10/06/23 Sergio Ahn PA-C [address] [place] [address] PHYSICIAN BID MANAGER 11/10/23 documented as of this encounter
--- OUTSIDE RECORDS SUMMARY | 2024-10-08 14:39 | XMS_ITS | Encounter Summary ---
Author Organization [facility] Address [address] [place] [address] Care Team Providers Care Bingo Attendant Name Role Phone Jabari Banda MD Primary Care Provider [phone] Rylee Rocha MD Unavailable Sergio Ahn PA-C Unavailable [phone] Encounter Details Date Type Department Care Team (Late st Contact Info) Description 06/25/2024 Hospital Follow-up Call [facility] [address] [place] [address] Nikki Springer RN Social History Tobacco Use Types Packs/Day Years Used Date Smoking Tobacco: Former Cigarettes 1 30 0 1985 - 05/30/2015 Smokeless Tobacco: Never Comments:Dont smoke Alcohol Use Standard Drinks/Week Comments Not Currently 0 (1 standard drink = 0.6 oz pur e alcohol) Social [facility] Utilities Answer Date Recorded In the past 12 months has e electric, gas, oil, or water [employer] threatened to shut off services in your home? No 06/18/2024 Humiliation, Afraid, Rape, and Kick questionnair e Answer Date Recorded Within the last year, have y ou been afraid of your partner or ex-partner? No 06/18/2024 Within the last year, have y ou been humiliated or emotionally abused in other ways by your partner or ex-partner? No Within the last year, have y ou been kicked, hit, slapped, or otherwise physically hurt by your partner or ex-partner? No 06/18/2024 Within the last year, have y ou been raped or forced to have any kind of sexual activity by your partner or ex-partner? No 06/18/2024 AUDIT-C Answer Date Recorded Frequency of Alcohol Consumption Never 01/31/2018 Average Number of Drinks Not on file 018 Frequency of Binge Drinking Not on file 01/21 Overall Financial Resource Strain (CARDIA) Answe r Date Recorded How hard is it for you to pa y for the very basics like food, housing, medical care, and heating? Not hard at all 06/18/2024 Hunger Vital Sign Answer Date Recorded Within the past 12 months, y ou worried that your food would run out before you got the money to buy more. Never true 06/19/19 25 Within the past 12 months, t he food you bought just didn't last and you didn't have money to get more. Never true 06/18/2024 PRAPARE - Transportation Answer Date Re corded In the past 12 months, has l ack of transportation kept you from medical appointments or from getting medications? No 05/23 In the past 12 months, has l ack of transportation kept you from meetings, work, or from getting things needed for daily living? No 06/18/2024 Housing Stability Vital Sign Answer Alex e Recorded In the last 12 months, was t here a time when you were not able to pay the mortgage or rent on time? No 05/16/2023 In the last 12 months, how many places have you lived? 1 05/16/2023 In the last 12 months, was t here a time when you did not have a steady place to sleep or slept in a mcc (including now)? No 05/16/2023 Housing Stability Vital Sign Answer Alex e Recorded In the last 12 months, was t here a time when you were not able to pay the mortgage or rent on time? No 06/18/2024 In the past 12 months, how m any times have you moved where you were living? 1 06/18/2024 At any time in the past 12 [facility], were you homeless or living in a mcc (including now)? No 06/18/2024 Comments No Sex and Gender Information Value Date Recorded Sex Assigned at Female 03/23/2024 12:06 PM CRITICAL POWER TECHNICIAN Legal Sex Female 3:27 AM CDT Gender Identity Female 02/11/2023 3:50 PM CRITICAL POWER TECHNICIAN Sexual Orientation Not on file documented as of this encounter Functional Status * Are you deaf or do you have serious difficulty hearing Answer Date of Assessment Author Status No 06/18/2024 5:12 PM CDT Lili Reynoso , Nurse Cryptographic Machine Operator II Active * Are you blind or do you have serious difficulty seeing, even when wearing glasses? Answer Date of Assessment Author Status No 06/18/2024 5:12 PM CDT Lili Reynoso , Nurse Cryptographic Machine Operator II Active * Do you have serious difficulty walking or climbing stairs? Answer Date of Assessment Author Status No 06/18/2024 5:12 PM CDT Lili Reynoso , Nurse Cryptographic Machine Operator II Active * Do you have difficulty dressing or bathing? Answer Date of Assessment Author Status No 06/18/2024 5:12 PM CDT Lili Reynoso , Nurse Cryptographic Machine Operator II Active * Because of a physical, mental, or emotional condition, do you have difficulty doing errands alone such as visiting a doctor's office or shopping? Answer Date of Assessment Author Status No 06/18/2024 5:12 PM CDT Lili Reynoso , Nurse Cryptographic Machine Operator II Active documented as of this encounter Mental Status * Because of a physical, mental, or emotional condition, do you have serious difficulty concentrating, remembering, or making decisions? Answer Entry Date Author Status No 06/18/2024 5:12 PM CDT Lili Reynoso , Nurse Cryptographic Machine Operator II Active documented in this encounter Plan of Treatment Upcoming Encounters Date Type Department Care Team (Late st Contact Info) Description 11/22/2024 3:00 PM CDT Office Visit [facility] [address] [place] [address] Sergio Ahn PA-C [address] [place] [address] documented as of this encounter Goals Goal [...] on filedocumented in this encounter Care Teams Bingo Attendant Relationship Specialty Start Date End Date Jabari Banda MD [address] [place] [address] PCP - General INTERNAL MEDICINE 12/02/15 Rylee Rocha MD [address] [place] [address] Consulting Physician CARDIOVASCULAR DISEASE 10/06/23 Sergio Ahn PA-C [address] [place] [address] PHYSICIAN BAG SEALER 11/10/23 documented as of this encounter
--- OUTSIDE RECORDS SUMMARY | 2024-10-08 14:39 | XMS_ITS | Clinical Summary ---
Author Organization [facility] Address [address] [place] [address] Care Team Providers Care Cut Out Stitcher Name Role Phone Jabari Banda MD Primary Care Provider [phone] Christine Stevens RN Unavailable [phone] Mily Vance CIRCUS SUPERVISOR-CLIENT TECHNOLOGIES ANALYST Unavailable + Darby Del Real RN Unavailable Unavailable Kaity Bowens Unavailable Unavailable Source Comments [facility],non-owned Affiliates and Associated Physician Practices is amultiple site organization consisting of ambulatory clinics and hospital sitesin [place], [place], [place] and [place]. This disclosure is being madepursuant to the Care Everywhere program and may not contain all information available regarding this patient. Last updated 17.[facility] Allergies No known active allergies Medications * [...] failure 016 Overview (08/22/2015): Added per clinical patient transition specialist per dc summary Dr. Lee . 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 ARTIFICIAL GLASS EYE MAKER Gender Identity Not on file Sexual Orientation [...] 5:40 AM CDT) Hepatitis C Virus Quantitation [id number] IU/mL 05/07/2015 9:18 AM CDT [facility] Hepatitis C Virus Log 10 6.037 log10 IU/mL 05/07/2015 9:18 AM CDT [facility] ([facility]) Test Information Comment 05/07/2015 9:18 AM CDT [facility] Comment: The quantitative range of the assay [...] CDT 05/04/2015 5:46 AM CDT Narrative [facility] ([facility]) - 05/07/2015 9:18 AM CDT Performed at: [address] [place] [id number] Impact Hammer Operator: Conrado Keane MD, Phone: [phone] Nunu Reynoso MD LAB - CHEMISTRY ORDERABLES Final Result [facility]) [address] [place] [address] from Last 3 Months or Most Recently [...] 2:49 PM 05/01/2015 3:17 PM Care Teams Cut Out Stitcher Relationship Specialty Start Date End Date Jabari Banda MD [address] [place] [address] PCP - General Internal Medicine 05/01/15 Christine Stevens, RN Cryptoanalysis Teacher 05/02/15 Mily Vance, CIRCUS SUPERVISOR-CLIENT TECHNOLOGIES ANALYST [address] [facility] [address] [place] [phone] Registered Nurse - Cardiopulmonary Rehab 08/04/15 Darby Del Real RN Registered Nurse - Cardiopulmonary Rehab 08/04/15 Kaity Bowens Dialysis Liaison 08/14/15
--- OUTSIDE RECORDS SUMMARY | 2024-10-08 14:39 | XMS_ITS | Encounter Summary ---
Author Organization [facility] Address [address] [place] [address] Care Team Providers Care Hand Molder Meat Name Role Phone Jabari Banda MD Primary Care Provider [phone] Klaus Ramos MD Unavailable [phone] Rylee Rocha MD Unavailable Sergio Ahn PA-C Unavailable [phone] Encounter Details Date Type Department Care Team (Late st Contact Info) Description 07/29/2018 Abstract [facility] CONVERSION [address] [place], [place] [id number] , Generic Conversion, Social History Tobacco Use Types Packs/Day Years [...] Sex Assigned at Female 03/23/2024 12:06 PM EQUIPMENT VALIDATION ENGINEER Legal Sex Female 3:27 AM CDT Gender Identity Female 02/11/2023 3:50 PM EQUIPMENT VALIDATION ENGINEER Sexual Orientation Not on file documented as of this encounter Functional Status * RETIRED Are you deaf or do you have serious difficulty hearing Answer Date of Assessment Author Status No 07/19/2018 12:11 PM CDT Acti ve * RETIRED Are you blind or do you have serious difficulty seeing, even when wearing glasses? Answer Date of Assessment Author Status No 07/19/2018 12:11 PM CDT Acti ve * Do you have serious difficulty walking or climbing stairs? Answer Date of Assessment Author Status No 07/19/2018 12:11 PM CDT Anahy Gao RN Active * Do you have difficulty dressing or bathing? Answer Date of Assessment Author Status No 07/19/2018 12:11 PM CDT Anahy Gao RN Active * Because of a physical, mental, or emotional condition, do you have difficulty doing errands alone such as visiting a doctor's office or shopping? Answer Date of Assessment Author Status No 07/19/2018 12:11 PM CDT Anahy Gao RN Active documented as of this encounter Mental Status * Because of a physical, mental, or emotional condition, do you have serious difficulty concentrating, remembering, or making decisions? Answer Entry Date Author Status No 07/19/2018 12:11 PM CDT Anahy Gao RN Active documented in this encounter Plan of Treatment Upcoming Encounters Date Type Department Care Team (Late st Contact Info) Description 11/22/2024 3:00 PM CDT [facility] [address] [place] [address] Sergio Ahn PA-C [address] [place] [address] documented as of this encounter Visit Diagnoses Not on filedocumented in this encounter Additional Health Concerns Infection Onset Date Last Indicated Resolved Time COVID-19 Rule Out 06/19/2019 06/19/2019 06/20/2019 5:16 AM CDT COVID-19 Confirmed 11/25/2019 11/25/2019 12:33 AM EQUIPMENT VALIDATION ENGINEER COVID-19 Rule Out 11/25/2019 11/25/2019 11/26/2019 12:00 PM CDT COVID-19 Rule Out 09/25/2021 09/25/2021 09/26/2021 1:16 AM CDT COVID-19 Rule Out 10/21/2021 10/21/2021 10/22/2021 2:07 PM CDT COVID-19 Rule Out 01/08/2024 01/08/2024 01/08/2024 10:52 PM EQUIPMENT VALIDATION ENGINEER COVID-19 Rule Out 06/18/2024 06/18/2024 06/18/2024 8:01 AM CDT Respiratory Rule Out 06/18/2024 06/18/2024 025 8:01 AM CDT documented as of this encounter Care Teams Hand Molder Meat Relationship Specialty Start Date End Date Jabari Banda MD [address] [place] [phone] PCP - General INTERNAL MEDICINE 12/02/15 Klaus Ramos MD [address] [place] [address] [place] Dyno Technician CARDIOVASCULAR DISEASE 07/26/18 10/05/23 Rylee Rocha MD [address] [place] [address] Consulting Physician CARDIOVASCULAR DISEASE 10/06/23 Sergio Ahn PA-C [address] [place] [address] PHYSICIAN DIE STORAGE CLERK 11/10/23 documented as of this encounter
--- OUTSIDE RECORDS SUMMARY | 2024-10-08 14:39 | XMS_ITS | Encounter Summary ---
Author Organization [facility] Address [address] [place] [address] Care Team Providers Care Director Of Assessing Name Role Phone Jabari Banda MD Primary Care Provider [phone] Christine Stevens RN Unavailable [phone] Mily Vance BREADING MACHINE TENDER-CREW MEMBER Unavailable + Darby Del Real RN Unavailable Unavailable Kaity Bowens Unavailable Unavailable Encounter Details Date Type Department Care Team (Late st Contact Info) Description 08/11/2015 Transitional Care [facility] DISEASE MANAGEMENT [address] [place] [address] Darby Del Real RN Social History Tobacco Use Types Packs/Day Years Used Date Smoking Tobacco: Former Cigarettes Q uit: 05/02/2015 Alcohol Use Standard Drinks/Week Comments Not Asked 0 (1 standard drink = 0.6 oz pur e alcohol) Comments No Sex and Gender Information Value Date Recorded Sex Assigned at Not on file Legal Sex Female 9:41 AM SCRATCH POLISHER Gender Identity Not on file Sexual Orientation [...] on filedocumented in this encounter Care Teams Director Of Assessing Relationship Specialty Start Date End Date Jabari Banda MD [address] [place] [address] PCP - General Internal Medicine 05/01/15 Christine Stevens RN Combo Welder 05/02/15 Mily Vance, BREADING MACHINE TENDER-CREW MEMBER [address] [facility] [address] [place] [address] Registered Nurse - Cardiopulmonary Rehab 08/04/15 Darby Del Real RN Registered Nurse - Cardiopulmonary Rehab 08/04/15 Kaity Bowens Dialysis Liaison 08/14/15 documented as of this encounter
--- OUTSIDE RECORDS SUMMARY | 2024-10-08 14:39 | XMS_ITS | Encounter Summary ---
Author Organization [facility] Address [address] [place] [address] Care Team Providers Care Patternmaker Apprentice Metal Name Role Phone Jabari Banda MD Primary Care Provider [phone] Klaus Ramos MD Unavailable [phone] Rylee Rocha MD Unavailable Sergio Ahn PA-C Unavailable [phone] Encounter Details Date Type Department Care Team (Late st Contact Info) Description 05/23/2023 Hospital Follow-up Call [facility] Unit [address] [place] [address] Nikki Springer, RN Social History Tobacco Use Types Packs/Day Years Used Date Smoking Tobacco: Former Cigarettes 1 30 0 1985 - 05/30/2015 Smokeless Tobacco: Never Comments:Dont smoke Alcohol Use Standard Drinks/Week Comments Not Currently 0 (1 standard drink = 0.6 oz pur e alcohol) Social C Utilities Answer Date Recorded In the past 12 months has e electric, gas, oil, or water company threatened to shut off services in your home? No 05/16/2023 Humiliation, Afraid, Rape, and Kick questionnair e Answer Date Recorded Within the last year, have y ou been afraid of your partner or ex-partner? No 05/16/2023 Within the last year, have y ou been humiliated or emotionally abused in other ways by your partner or ex-partner? No Within the last year, have y ou been kicked, hit, slapped, or otherwise physically hurt by your partner or ex-partner? No 05/16/2023 Within the last year, have y ou been raped or forced to have any kind of sexual activity by your partner or ex-partner? No 05/16/2023 AUDIT-C Answer Date Recorded Frequency of Alcohol Consumption Never 01/31/2018 Average Number of Drinks Not on file 018 Frequency of Binge Drinking Not on file 01/21 Overall Financial Resource Strain (CARDIA) Answe r Date Recorded How hard is it for you to pa y for the very basics like food, housing, medical care, and heating? Somewhat hard 05/16/2023 Hunger Vital Sign Answer Date Recorded Within the past 12 months, y ou worried that your food would run out before you got the money to buy more. Never true 05/16/19 24 Within the past 12 months, t he food you bought just didn't last and you didn't have money to get more. Never true 05/16/2023 PRAPARE - Transportation Answer Date Re corded In the past 12 months, has l ack of transportation kept you from medical appointments or from getting medications? No 04/22 In the past 12 months, has l ack of transportation kept you from meetings, work, or from getting things needed for daily living? No 05/16/2023 Housing Stability Vital Sign Answer [...] place to sleep or slept in a alf (including now)? No 05/16/2023 Comments No Sex and Gender Information Value Date Recorded Sex Assigned at Female 03/23/2024 12:06 PM PEARL FISHERMAN Legal Sex Female 3:27 AM CDT Gender Identity Female 02/11/2023 3:50 PM PEARL FISHERMAN Sexual Orientation Not on file documented as of this encounter Functional Status * Are you deaf or do you have serious difficulty hearing Answer Date of Assessment Author Status No 05/16/2023 11:53 AM CDT StaffKaryn RN Active * Are you blind or do you have serious difficulty seeing, even when wearing glasses? Answer Date of Assessment Author Status No 05/16/2023 11:53 AM CDT StaffKaryn RN Active * Do you have serious difficulty walking or climbing stairs? Answer Date of Assessment Author Status Yes 05/16/2023 11:53 AM CDT StaffKaryn RN Active * Do you have difficulty dressing or bathing? Answer Date of Assessment Author Status Yes 05/16/2023 11:53 AM CDT StaffKaryn RN Active * Because of a physical, mental, or emotional condition, do you have difficulty doing errands alone such as visiting a doctor's office or shopping? Answer Date of Assessment Author Status Yes 05/16/2023 11:53 AM CDT StaffKaryn RN Active documented as of this encounter Mental Status * Because of a physical, mental, or emotional condition, do you have serious difficulty concentrating, remembering, or making decisions? Answer Entry Date Author Status Yes 05/16/2023 11:53 AM CDT StaffKaryn RN Active documented in this encounter Plan of Treatment Upcoming Encounters Date Type Department Care Team (Late st Contact Info) Description 11/22/2024 3:00 PM CDT [facility] [address] [place] [address] Sergio Ahn PA-C [address] [place] [address] documented as of this encounter Goals Goal [...] Rule Out 01/08/2024 01/08/2024 01/08/2024 10:52 PM PEARL FISHERMAN COVID-19 Rule Out 06/18/2024 06/18/2024 06/18/2024 8:01 AM CDT Respiratory Rule Out 06/18/2024 06/18/2024 025 8:01 AM CDT documented as of this encounter Care Teams Patternmaker Apprentice Metal Relationship Specialty Start Date End Date Jabari Banda MD [address] [place] [address] PCP - General INTERNAL MEDICINE 12/02/15 Klaus Ramos MD [address] [place] [phone] [place] Senior Java Data Architect CARDIOVASCULAR DISEASE 07/26/18 10/05/23 Rylee Rocha MD [address] [place] [address] Consulting Physician CARDIOVASCULAR DISEASE 10/06/23 Sergio Ahn PA-C [address] [place] [address] PHYSICIAN EL TEACHER 11/10/23 documented as of this encounter
--- OUTSIDE RECORDS SUMMARY | 2024-10-08 14:39 | XMS_ITS | Encounter Summary ---
Author Organization [facility] Address [address] [place] [address] Care Team Providers Care Rehabilitation Attendant Name Role Phone Jabari Banda MD Primary Care Provider [phone] Klaus Ramos MD Unavailable [phone] Rylee Rocha MD Unavailable Sergio Ahn PA-C Unavailable [phone] Encounter Details Date Type Department Care Team (Latest Contact Info) Description 05/23/2023 [facility] Cardiovascular Care Unit [address] [place] [address] Dev, [facility] Provider discharge follow up call Social History Tobacco Use Types Packs/Day Years [...] in a mcc (including now)? No 05/16/2023 Comments No Sex and Gender Information Value Date Recorded Sex Assigned at Female 03/23/2024 12:06 PM CONTRACT LEAD Legal Sex Female 3:27 AM CDT Gender Identity Female 02/11/2023 3:50 PM CONTRACT LEAD Sexual Orientation Not on file documented as [...] 11/22/2024 3:00 PM CDT [facility] [address] [place] [address] Sergio Ahn PA-C [address] [place] [address] documented as of this encounter Goals Goal [...] Rule Out 01/08/2024 01/08/2024 01/08/2024 10:52 PM CONTRACT LEAD COVID-19 Rule Out 06/18/2024 06/18/2024 06/18/2024 8:01 AM CDT Respiratory Rule Out 06/18/2024 06/18/2024 025 8:01 AM CDT documented as of this encounter Care Teams Rehabilitation Attendant Relationship Specialty Start Date End Date Jabari Banda MD [address] [place] [address] PCP - General INTERNAL MEDICINE 12/02/15 Klaus Ramos MD [address] [place] [address] [place] Cake Stripper CARDIOVASCULAR DISEASE 07/26/18 10/05/23 Rylee Rocha MD [address] [place] [address] Consulting Physician CARDIOVASCULAR DISEASE 10/06/23 Sergio Ahn PA-C [address] [place] [address] PHYSICIAN RAILWAY ENGINEER 11/10/23 documented as of this encounter
--- OUTSIDE RECORDS SUMMARY | 2024-10-08 14:39 | XMS_ITS | Encounter Summary ---
Author Organization [facility] Address [address] [place] [address] Care Team Providers Care Fish Cleaner Machine Tender Name Role Phone Jabari Banda MD Primary Care Provider [phone] Segundo Cavazos MD Unavailable Unavailab Klaus Dennis MD Unavailable [phone] Rylee Rocha MD Unavailable Sergio Ahn PA-C Unavailable [phone] Reason for Visit * Reason Onset Date Comments Follow Up Call 07/21/2018 Encounter Details Date Type Department Care Team (Late st Contact Info) Description 07/21/2018 Patient Outreach [facility] [address] [place] [address] Nikki Springer, RN Follow Up Call Social History Tobacco Use Types Packs/Day Years [...] Sex Assigned at Female 03/23/2024 12:06 PM PUBLIC SAFETY TELECOMMUNICATOR Legal Sex Female 3:27 AM CDT Gender Identity Female 02/11/2023 3:50 PM PUBLIC SAFETY TELECOMMUNICATOR Sexual Orientation Not on file documented as [...] Assessment Author Status No 07/19/2018 12:11 PM KISHAT Anahy Gao RN Active * Because of [...] Description 11/22/2024 3:00 PM CDT [facility] [address] [place] [address] Sergio Ahn PA-C [address] [place] [address] documented as of this encounter Visit Diagnoses Not on filedocumented in this encounter Additional Health Concerns Infection Onset Date Last Indicated Resolved Time COVID-19 Rule Out 06/19/2019 06/19/2019 06/20/2019 5:16 AM CDT COVID-19 Confirmed 11/25/2019 11/25/2019 0 12:33 AM PUBLIC SAFETY TELECOMMUNICATOR COVID-19 Rule Out 11/25/2019 11/25/2019 11/26/2019 12:00 PM CDT COVID-19 Rule Out 09/25/2021 09/25/2021 09/26/2021 1:16 AM CDT COVID-19 Rule Out 10/21/2021 10/21/2021 10/22/2021 2:07 PM CDT COVID-19 Rule Out 01/08/2024 01/08/2024 01/08/2024 10:52 PM PUBLIC SAFETY TELECOMMUNICATOR COVID-19 Rule Out 06/18/2024 06/18/2024 06/18/2024 8:01 AM CDT Respiratory Rule Out 06/18/2024 06/18/2024 025 8:01 AM CDT documented as of this encounter Care Teams Fish Cleaner Machine Tender Relationship Specialty Start Date End Date Jabari Banda MD [address] [place] [phone] PCP - General INTERNAL MEDICINE 12/02/15 Segundo Cavazos MD [address] [place] [address] CARDIOVASCULAR DISEASE 12/02/15 07/25/18 Klaus Ramos MD [address] [place] [phone] [place] Clinical Education Manager CARDIOVASCULAR DISEASE 07/26/18 10/05/23 Rylee Rocha MD [address] [place] [address] Consulting Physician CARDIOVASCULAR DISEASE 10/06/23 Sergio Ahn PA-C [address] [place] [phone] PHYSICIAN DIP UNIT OPERATOR 11/10/23 documented as of this encounter
--- OUTSIDE RECORDS SUMMARY | 2024-10-08 14:40 | XMS_ITS | Encounter Summary ---
Author Organization [facility] Address [facility] [place] [address] Care Team Providers Care Commissions Coordinator Name Role Phone Jabari Banda MD Primary Care Provider [phone] Klaus Ramos MD Unavailable [phone] Rylee Rocha MD Unavailable Sergio Ahn PA-C Unavailable [phone] Encounter Details Date Type Department Care Team (Late st Contact Info) Description 04/29/2023 Hospital Orders Only [employer] Payment Rep Pre/Post [address] [place] [address] Adithya Owens MD [address] [facility] [address] [id number] Social History Tobacco Use Types Packs/Day Years Used Date Smoking Tobacco: Former Cigarettes 1 30 0 1985 - 05/30/2015 Smokeless Tobacco: Never Comments:Dont smoke Alcohol Use Standard Drinks/Week Comments Not Currently 0 (1 standard drink = 0.6 oz pur e alcohol) Social AUDIT-C Answer Date Recorded Frequency of Alcohol Consumption Never 01/31/2018 Average Number of Drinks Not on file 018 Frequency of Binge Drinking Not on file 01/21 Comments No Sex and Gender Information Value Date Recorded Sex Assigned at Female 03/23/2024 12:06 PM NOZZLEMAN Legal Sex Female 3:27 AM CDT Gender Identity Female 02/11/2023 3:50 PM NOZZLEMAN Sexual Orientation Not on file documented as [...] PM CDT Mata Bean RN Active documented as of this encounter [...] 11/22/2024 3:00 PM CDT [facility] [address] [place] [address] Sergio Ahn PA-C [address] [place] [phone] documented as of this encounter Goals Goal [...] Rule Out 01/08/2024 01/08/2024 01/08/2024 10:52 PM NOZZLEMAN COVID-19 Rule Out 06/18/2024 06/18/2024 06/18/2024 8:01 AM CDT Respiratory Rule Out 06/18/2024 06/18/2024 025 8:01 AM CDT documented as of this encounter Care Teams Commissions Coordinator Relationship Specialty Start Date End Date Jabari Banda MD [address] [place] [phone] PCP - General INTERNAL MEDICINE 12/02/15 Klaus Ramos MD [address] [place] [phone] [place] Bulb Tester CARDIOVASCULAR DISEASE 07/26/18 10/05/23 Rylee Rocha MD [address] [place] [phone] Consulting Physician CARDIOVASCULAR DISEASE 10/06/23 Sergio Ahn PA-C [address] [place] [phone] PHYSICIAN BUSINESS CENTER REPRESENTATIVE 11/10/23 documented as of this encounter
--- OUTSIDE RECORDS SUMMARY | 2024-10-08 14:42 | XMS_ITS | Encounter Summary ---
Author Organization [facility] Address [address] [place] [address] Care Team Providers Care Qc Chemist Name Role Phone Jabari Banda MD Primary Care Provider [phone] Klaus Ramos MD Unavailable [phone] Rylee Rocha MD Unavailable Sergio Ahn PA-C Unavailable [phone] Encounter Details Date Type Department Care Team (Late st Contact Info) Description 08/18/2022 MyChart Message Enc [facility] [address] [place], [place] [phone] Mychart, [facility] Provider Air Quality Message Social History Tobacco Use Types Packs/Day Years [...] Sex Assigned at Female 03/23/2024 12:06 PM FINANCIAL CENTER MANAGER Legal Sex Female 3:27 AM CDT Gender Identity Female 02/11/2023 3:50 PM FINANCIAL CENTER MANAGER Sexual Orientation Not on file COVID-19 Exposure Response Date Recorded In the last 10 days, have yo u been in contact with someone who was confirmed or suspected to have Coronavirus/COVID-19? No / Unsure 07/29/2022 2:30 PM CDT documented as of this encounter [...] Description 11/22/2024 3:00 PM CDT [facility] [address] [place] [phone] Sergio Ahn PA-C [address] [place] [address] documented as of this encounter Goals Goal [...] Rule Out 01/08/2024 01/08/2024 01/08/2024 10:52 PM FINANCIAL CENTER MANAGER COVID-19 Rule Out 06/18/2024 06/18/2024 06/18/2024 8:01 AM CDT Respiratory Rule Out 06/18/2024 06/18/2024 025 8:01 AM CDT documented as of this encounter Care Teams Qc Chemist Relationship Specialty Start Date End Date Jabari Banda MD [address] [place] [phone] PCP - General INTERNAL MEDICINE 12/02/15 Klaus Ramos MD [address] [place] [phone] [facility] Specialist CARDIOVASCULAR DISEASE 07/26/18 10/05/23 Rylee Rocha MD [address] [place] [phone] Consulting Physician CARDIOVASCULAR DISEASE 10/06/23 Sergio Ahn PA-C [address] [place] [phone] PHYSICIAN BINDER FIXER 11/10/23 documented as of this encounter
--- OUTSIDE RECORDS SUMMARY | 2024-10-08 14:42 | XMS_ITS | Clinical Summary ---
Author Organization [facility] Address [address] [place] [address] Phone Care Team Providers Care Hatchery Man Name Role Phone Provider, None Primary Care Provider Unavailabl e Allergies No known active allergies Medications Eliquis 5 MG Tablet Take 5 mg by mouth 2 times daily. 4 Active B Aauxrwj-S-Bhqbn Acid (Deepa-Vikash Rx) 1 MG Tablet Take [...] Years Used Date Smoking Tobacco: Never Assessed [facility] Utilities Answer Date Recorded In [...] any time in the past 12 m [facility], were you homeless or living in a assisted (including now)? Patient declined 03/13/2024 Comments Unknown Sex and Gender Information Value Date Recorded Sex Assigned at Not on file Legal Sex Female 9:03 AM COMPONENT LAB TECH Gender Identity Not on file Sexual Orientation Not on file Last Filed Vital Signs Vital Sign Reading Time Taken Comments Blood Pressure 184/65 03/15/2024 2:00 PM COMPONENT LAB TECH Pulse 74 03/15/2024 2:00 PM COMPONENT LAB TECH Temperature 36.5 C (97.7 F) 03/15/2024 2:00 PM COMPONENT LAB TECH Respiratory Rate 18 03/15/2024 2:00 PM COMPONENT LAB TECH Oxygen Saturation 97% 03/15/2024 8:02 AM COMPONENT LAB TECH Inhaled Oxygen Concentration - - Weight 97.8 kg (215 lb 9.8 oz) 03/14/2024 2:30 P M COMPONENT LAB TECH Height 165.1 cm (5' 5) 03/13/2024 2:33 PM COMPONENT LAB TECH Body Mass Index 35.88 03/13/2024 2:33 PM COMPONENT LAB TECH Plan of Treatment Health Maintenance Due Date [...] PCR VIRAL LOAD Routine 03/15/2024 5:50 AM COMPONENT LAB TECH HEMOGLOBIN A1C W/ ESTIMATED GLUCOSE Routine 03/14/2024 4:22 AM COMPONENT LAB TECH CMP (COMPREHENSIVE METABOLIC PANEL) 03/13/2024 12:00 AM COMPONENT LAB TECH from Last 3 Months or Most Recently Relevant to Health Maintenance Results * HEPATITIS C RNA QUANT PCR VIRAL LOAD (03/15/2024 5:50 AM COMPONENT LAB TECH) Pathologist [facility] HCV RNA QUANT PCR NON DETECTED NON DETECTED 03/15/2024 11:56 PM COMPONENT LAB TECH [facility] HCV RNA QT LOG10 03/15/2024 11:56 PM COMPONENT LAB TECH [facility] Comment: LOG 10 is not applicable. This test was performed using IRON 5800 Real Time PCR. Blood Venipuncture / Unknown 03/15/2024 5:50 AM COMPONENT LAB TECH 03/15/2024 5:59 AM COMPONENT LAB TECH us Crystal Amador MD IMMUNOLOGY ORDERABLES F inal Result [facility] [address] [place] [address], * (ABNORMAL) HEMOGLOBIN A1C W/ ESTIMATED GLUCOSE (03/14/2024 4:22 AM COMPONENT LAB TECH) Pathologist [facility] HGB-A1C 6.4(H) 4.0 - 6.0 % 03/14/2024 6:12 AM COMPONENT LAB TECH [facility] Est Average Glucose 137.0 mg/dL 03/14/2024 6:12 AM COMPONENT LAB TECH [facility] Blood Venipuncture / Unknown 03/14/2024 4:22 AM COMPONENT LAB TECH 03/14/2024 5:45 AM COMPONENT LAB TECH Narrative [facility] - 03/14/2024 6:12 AM COMPONENT LAB TECH HEMOGLOBIN A1C: DIABETIC PATIENTS: WELL-CONTROLLED: 6.2 - 7.0 INTERMEDIATE WELL-CONTROLLED: 7.0 - 9.0 POORLY-CONTROLLED: >9.0 Specimens containing greater than 5% of Hemoglobin F may result in lower than expected % HbA1C results. us Jillian Castillo BODY MAKE UP ARTIST, HOME CARE COORDINATOR CHEMISTRY ORDERABLES Final Result [facility] [address] [place] [address] * CMP (COMPREHENSIVE METABOLIC PANEL) (03/13/2024 12:00 AM COMPONENT LAB TECH) 03/13/2024 us Provider Scan CHEMISTRY ORDERABLES Final Resul t SCAN from Last 3 Months or Most Recently Relevant to Health Maintenance Insurance [address] [place] [address] MEDICA[place] Advance Directives * Full Code (Latest Code Status on File) Date Activated Date Inactivated Comments 03/13/2024 6:23 PM CPR-Full Treat ment: FULL ARREST: Attempt Resuscitation/CPR wit intubation and mechanical ventilation. PRE-ARREST: Use entire range of life support measures to stabilize the patient. Care Teams Hatchery Man Relationship Specialty Start Date End Date Provider, None [place] PCP - General 03/13/24
--- OUTSIDE RECORDS SUMMARY | 2024-10-08 14:42 | XMS_ITS | Clinical Summary ---
Author Organization [facility] Address [address] [place] [address] Care Team Providers Care Home Service Advisor Name Role Phone Jabari Banda MD Primary Care Provider [phone] Rylee Rocha MD Unavailable Sergio Ahn PA-C Unavailable [phone] Allergies No known active allergies Medications clopidogrel (PLAVIX) 75 MG tabletIndications :blood thinner Take 1 tablet (75 mg total) by mouth daily. Indications: blood thinner 014 Active atorvastatin 20 MG tabletIndications :Hypercholesterol emia Take 1 tablet (20 mg total) by mouth nightly. Indications: High Amount of Cholesterol in the Blood Active paroxetine 40 MG tablet Take 1 tablet (40 mg total) by mouth daily. anxiety Active hydrocodone-aceta minophen 7.5-325 MG tablet Take 1 tablet by mouth every 6 (six) hours as needed for Pain. 10 tablet 019 Active montelukast 10 MG tablet Take 1 tablet (10 mg total) by mouth nightly at bedtime. 021 Active sevelamer carbonate (RENVELA) 800 MG tablet Take 3 tablets (2,400 mg total) by mouth 3 (three) times daily with meals. Active BD PEN NEEDLE BRAYDEN 2ND GEN 32G X 4 MM Misc Inject 1 Needle into the skin 2 (two) times daily. 022 Active ANNA-ALLYSON RX 1 MG Tab Take 1 tablet by mouth daily. Active ipratropium-albut elmo (DUONEB) 0.5-2.5 (3) MG/3ML Solution Take 3 mLs by nebulization every 4 (four) hours as needed (as needed). As needed Active levothyroxine (SYNTHROID) 125 MCG tablet Take 2 tablets (250 mcg total) by mouth every morning. Active guaiFENesin ER (MUCINEX) 600 MG 12 hr tablet Take 1 tablet (600 mg total) by mouth as needed for Congestion. Active calcitriol (ROCALTROL) 0.25 MCG capsule Take 5 capsules (1.25 mcg total) by mouth see administration instructions. Three times a week Active ANORO ELLIPTA 62.5-25 MCG/ACT inhaler Inhale 1 puff into the lungs daily. Active OXYGEN CONCENTRATOR SUPPLY, DME,Indications:C HF (congestive heart failure) ([facility]),Acute asthma exacerbation ([facility]),Pulmona ry hypertension ([facility]) 1 Device by Nasal route continuous. Nasal Cannula. 3L with activity and nocturnal. Portable Tanks needed. Stationary Concentrator. 1 Device Active WALKER [facility], DME,Indications:C HF (congestive heart failure) ([facility]),Acute asthma exacerbation ([facility]/HCC),Pulmona ry hypertension ([facility]) 1 Device by Does not apply route as needed. 4 wheeled walker with basket for SOBOE. 1 Device Active albuterol sulfate HFA 108 (90 Base) MCG/ACT inhaler Inhale 2 puffs into the lungs 4 (four) times daily as needed. Active Nebulizers (XENIA LC PLUS NEBULIZER) [facility] USE WITH NEBULIZER DAILY Active apixaban (ELIQUIS) 5 MG tablet Take 1 tablet (5 mg total) by mouth 2 (two) times daily. 60 tablet 11 Active metoclopramide (REGLAN) 5 MG tablet Take 1 tablet (5 mg total) by mouth 4 (four) times daily. Active pantoprazole EC (PROTONIX) 20 MG tablet Take 1 tablet (20 mg total) by mouth daily. Active dilTIAZem ER (DILT-XR) 180 MG 24 hr capsule Take 1 capsule (180 mg total) by mouth daily. 30 capsule 6 Active NOVOLOG MIX 70/30 FLEXPEN 100 unit/mL injection (PEN) Inject 30 Units into the skin 2 (two) times daily before meals. INJECT 30 UNITS UNDER THE SKIN EVERY MORNING AND EVENING 18 mL Active amLODIPine (NORVASC) 5 MG tablet Take 1 tablet (5 mg total) by mouth daily. Active ondansetron (ZOFRAN-ODT) 4 MG disintegrating tablet Take 1 tablet (4 mg total) by mouth every 8 (eight) hours as needed for Nausea. 30 tablet Active ondansetron (ZOFRAN-ODT) 4 MG disintegrating tablet Take 1 tablet (4 mg total) by mouth every 8 (eight) hours as needed for Nausea. 20 tablet 2024 Discontin ued(Formu marie change) metoclopramide (REGLAN) 10 MG tablet Take 1 tablet (10 mg total) by mouth every 6 (six) hours as needed (nausea). Take with 25 mg diphenhydramine 20 tablet 2024 amoxicillin-clavu lanate (AUGMENTIN) 875-125 MG tablet Take 1 tablet (875 mg total) by mouth 2 (two) times daily for 7 days. 14 tablet 2024 Active Problems Problem Noted Date Diagnosed Date Nausea and vomiting 07/16/2024 Pneumonia 06/18/2024 Bacterial pneumonia 06/18/2024 Acute encephalopathy 06/13/2024 Atypical atrial flutter ([facility]) 2023 S/P ablation of atrial fibrillation 11/10/2023 Atrial fibrillation with RVR ([facility]) 0 08/12/2023 Hypertension with fluid overload 05/16/2023 Fluid overload 05/16/2023 Chronic anticoagulation 05/09/2023 Paroxysmal atrial fibrillation ([facility]) 03/08/2023 Pericarditis ([facility]) 10/24/2021 Rapid atrial fibrillation ([facility]) 09/23 Atrial fibrillation with rap id ventricular response ([facility]) 10/21/2021 Acute CO ([facility]) 09/25/2021 Acute myocardial infarction ([facility]) COVID-19 11/26/2019 Acute asthma exacerbation ([facility]) 06/19/2019 Chest wall pain 07/10/2018 CHF (congestive heart failure) ([facility]) 07/09/2018 Coronary artery disease invo lving [place] coronary artery of [place] heart without angina pectoris 12/16/2015 Hypertension 12/16/2015 Hyperlipidemia, mixed 12/16/2015 ESRD on hemodialysis ([facility]) 6 H/O: CVA (cerebrovascular accident) 12/16/2015 ESRD (end stage renal disease) ([facility]) 08/17/2015 Morbid obesity 08/17/2015 Diabetic nephropathy ([facility]) 6 Sleep apnea Overview (09/22/2020): testing positive;had machine-didn't use it often enough,so it was taken away Resolved Problems Problem Noted Date Diagnosed Date Resolved Date Acute viral pericarditis ([facility]) 10/24/2021 10/24/2021 Encounters Date Type Department Care Team Description 10/03/2024 Telephone [facility] [facility] [id number] [place] [address] Sergio Ahn PA-C Follow Up 09/27/2024 10:38 PM CDT - 09/28/2024 12:25 AM CDT Emergency [facility] [address] [place] [address] Hypoglycemia Discharge Disposition: Home or Self Care (Routine Discharge) 09/27/2024 Travel 09/23/2024 6:59 PM CDT - 09/23/2024 10:41 PM CDT Emergency [facility] [address] [place] [address] Angelo Nava MD Abdominal Pain Discharge Disposition: Home or Self Care (Routine Discharge) 09/23/2024 Travel 09/04/2024 Telephone [facility] [address] [place] [address] Rylee Rocha MD Reschedule 09/03/2024 11:45 AM CDT - 09/03/2024 2:32 PM CDT Emergency [facility] [address] [place] [address] [place] [address] Jamie Schumacher MD Abdominal Pain Discharge Disposition: Home or Self Care (Routine Discharge) 09/03/2024 Travel 08/23/2024 Telephone [facility] [address] [place] [address] Rylee Rocha MD Appointment Reminder 08/21/2024 Orders Only [facility] [address] [place] [address] Rylee Rocha MD 08/19/2024 9:26 AM CDT - 08/19/2024 11:35 AM CDT Emergency [facility] [address] [place] [address] [place] [address] Sai Faria DO Fall Discharge Disposition: Home with Home Health Care 08/19/2024 Travel 07/18/2024 Travel 07/16/2024 12:02 PM CDT - 07/20/2024 3:00 PM CDT Hospital Encounter [facility] 4th Floor Medical [address] [place] [address] Carlos Colmenares MD Bhandari, Amit, MD Dangol, Gulshan M, MD Discharge Disposition: Home or Self Care (Routine Discharge) 07/16/2024 7:04 AM CDT Anesthesia Event [facility] [address] [place] [address] [place] [address] Jerardo Robbins CRNA 07/16/2024 4:57 AM CDT - 07/16/2024 10:53 AM CDT Emergency [facility] [address] [place] [address] [place] [address] Sai Faria DO Maloney, William, MD Vomiting (Significant other states patient started vomiting around midnight) Discharge Disposition: Transfer to [facility] 07/16/2024 Travel from Last 3 Months Immunizations Immunization Administration Dates Next Due Hepatitis A/Hepatitis B (Aka Twinrix) 04/21/2016 ,08/27/2015 Influenza Adult (Generic) 10/21/2015,12/13/2014, 12/19/2013 Pneumococcal (Pneumovax 23) 12/19/2013, 2 Family History Medical History Relation Comments Diabetes Father Hypertension Father Cancer Mother Diabetes Mother Hypertension Mother Relation Status Comments Father Alive Mother Alive Social History Tobacco Use Types Packs/Day Years Used Date Smoking Tobacco: Former Cigarettes 1 30 0 1985 - 05/30/2015 Smokeless Tobacco: Never Tobacco Cessation:Counseling Given: Not Answered Comments:Dont smoke Alcohol Use Standard Drinks/Week Comments Not Currently 0 (1 standard drink = 0.6 oz pur e alcohol) Social [facility] Utilities Answer Date Recorded In the past 12 months has e [employer], gas, oil, or water [employer] threatened to shut off services in your [...] money to buy more. Never true 06/19/19 Within the past 12 months, t he [...] place to sleep or slept in a [place] (including now)? No 05/16/2023 Housing Stability Vital Sign Answer Alex e Recorded In the last 12 months, was t here a time when you were not able to pay the mortgage or rent on time? No 06/18/2024 In the past 12 months, how m any times have you moved where you were living? 1 06/18/2024 At any time in the past 12 m [facility], were you homeless or living in a [place] (including now)? No 06/18/2024 Comments No Sex and Gender Information Value Date Recorded Sex Assigned at Female 03/23/2024 12:06 PM TEACHING SUPERVISOR Legal Sex Female 3:27 AM CDT Gender Identity Female 02/11/2023 3:50 PM TEACHING SUPERVISOR Sexual Orientation Not on file Last Filed Vital Signs Vital Sign Reading Time Taken Comments Blood Pressure 154/80 09/27/2024 10:33 PM CDT Pulse 58 09/27/2024 10:33 PM CDT Temperature 36.7 C (98 F) 09/27/2024 10:34 PM CDT Respiratory Rate 18 09/27/2024 10:33 PM CDT Oxygen Saturation 100% 09/27/2024 10:33 PM CDT Inhaled Oxygen Concentration - - Weight 92.5 kg (204 lb) 09/27/2024 10:44 PM CDT Height 165.1 cm (5' 5) 09/27/2024 10:44 PM CDT Body Mass Index 33.95 09/27/2024 10:44 PM CDT Plan of Treatment Upcoming Encounters Date Type Department Care Team (Lisseth st Contact Info) Description 11/22/2024 3:00 PM CDT Office Visit [facility] [address] [place] [phone] Sergio Ahn PA-C [address] [place] [phone] Health Maintenance Due Date Last Done Comments Cervical Cancer Screening Pap Smear (Age 30 to 64) Every 3 Years 1960 Colorectal Cancer Screening Colonoscopy (10 Years) 1960 Annual Physical 05/30/1963 Diabetes: Retinopathy Eye Exam 1978 DTaP, Tdap and Td Vaccines (1 - Tdap) 05/30/1979 Cervical Cancer Screening Pap with HPV Testing (Age 30 to 64) Every 5 Years 1990 Cervical Cancer Screening with HPV 1990 Mammogram Screening 2000 Zoster Vaccines (1 of 2) 2010 Pneumococcal Vaccine: 50+ Years (2 of 2 - PCV) 12/19/2014 12/19/2013, 07/05/2011 RSV Immunization or 60+ Years (1 - Risk 60-74 years 1-dose series) 2020 COVID-19 Vaccine ( - season) 2023 Hemoglobin A1C 12/13/2024 06/13/2024, 02/22, 08/26/2023, Additional history exists Lipid Panel 06/14/2025 06/14/2024, 07/0 06/2023, 10/29/2022, Additional history exists Lung Cancer Screening 07/16/2025 07/16/2024 , 01/24/2024, 05/17/2023, Additional history exists Hepatitis C Completed 03/15/2024, 02/22, 03/14/2024, Additional history exists Meningococcal B Vaccine Aged Out No l onger eligible based on patient's age to complete this topic Meningococcal Vaccine Aged Out No hyacinth timmy eligible based on patient's age to complete this topic RSV Immunizations Under 20 Months Aged Out No longer eligible based on patient's age to complete this topic Goals Goal Patient Goal Type Associated Problems Recent Progress Patient-Stated? Author Patient/family will have appropriate support at home upon discharge Lifestyle No Crystal Simms, RN Patient will return to prior living situation and remain independent in ADLs upon discharge from hospital Lifestyle Yes Edda Wolff, RN Note: Will be returning home and has assistance from boyfriend if needed Medical Devices Implanted Type Area [employer] Product Manager Device Identifier Shelf Expiration Date Model / Serial / Lot Graft Graft Description:Left arm fistula Iol Burt Sn60wf - [id number] Implanted:Qty: 1 on 02/07/2018 by Basim Moore MD at [facility] Lens Right: Eye [employer] 10/21/2022 [id number] / [id number] / N/A Description:Implant verified by [employer]ol [employer] Sn60wf - [id number] Implanted:Qty: 1 on 03/07/2018 by Basim Moore MD at [facility] Lens Left: Eye [employer] 10/21/2022 SN60WF / [id number] / N/A Description:Lens verified pe r surgeon and chart Procedures Procedure Name Priority Date/Time Associated Diagnosis Comments CT HEAD WO CON STAT 09/27/2024 11:27 PM CDT XR CHEST PORTABLE STAT 09/27/2024 11:27 PM CDT AMYLASE STAT 09/27/2024 11:02 PM CDT LIPASE STAT 09/27/2024 11:02 PM CDT COMPREHENSIVE METABOLIC PANEL STAT 09/27/2024 11:02 PM CDT PARTIAL THROMBOPLASTIN TIME,PTT STAT 09/27/2024 11:02 PM CDT PROTHROMBIN TIME, VENOUS STAT 09/27/2024 11:02 PM CDT CBC W/DIFF AUTOMATED STAT 09/27/2024 11:02 PM CDT POCT GLUCOSE - DOCKED DEVICE Routine 09/27/2024 10:26 PM CDT TROPONIN, QUANT TIMED 09/23/2024 9:29 PM CDT ECG 12-LEAD STAT 09/23/2024 8:[address] ABD+PEL W CON STAT 09/23/2024 7:43 PM CDT LIPASE STAT 09/23/2024 7:24 PM CDT TROPONIN, QUANT STAT 09/23/2024 7:24 PM CDT COMPREHENSIVE METABOLIC PANEL STAT 09/23/2024 7:24 PM CDT CBC W/DIFF AUTOMATED STAT 09/23/2024 7:[address] ABD+PEL WO CON STAT 09/03/2024 12:46 PM CDT LIPASE STAT 09/03/2024 12:23 PM CDT COMPREHENSIVE METABOLIC PANEL STAT 09/03/2024 12:23 PM CDT CBC W/DIFF AUTOMATED STAT 09/03/2024 12:23 PM CDT CK (CPK) STAT 08/19/2024 10:29 AM CDT PARTIAL THROMBOPLASTIN TIME,PTT STAT 08/19/2024 10:29 AM CDT PROTHROMBIN TIME, VENOUS STAT 08/19/2024 10:29 AM CDT COMPREHENSIVE METABOLIC PANEL STAT 08/19/2024 10:29 AM CDT CBC W/DIFF AUTOMATED STAT 08/19/2024 10:[address] FACIAL BONES WO CON STAT 10:[address] HEAD WO CON STAT 08/19/2024 10:14 AM CDT USV ART DUPLEX UP LT Today 07/23/2024 2:59 PM CDT POCT GLUCOSE - DOCKED DEVICE Routine 07/20/2024 1:22 PM CDT PROTEIN ELECTROPHORESIS URINE RANDOM Nurse Collected Priority 07/20/2024 10:35 AM CDT Lytic lesion of bone on x-ray Chest wall pain IMMUNOFIXATION, URINE Nurse Collected Priority 07/20/2024 10:35 AM CDT Lytic lesion of bone on x-ray Chest wall pain HEPATITIS B SURFACE AG, EIA Routine 07/20/2024 6:03 AM CDT HEPATITIS B SURFACE ANTIBODY Routine 07/20/2024 6:03 AM CDT POCT GLUCOSE - DOCKED DEVICE Routine 07/20/2024 4:50 AM CDT POCT GLUCOSE - DOCKED DEVICE Routine 07/19/2024 8:48 PM CDT POCT GLUCOSE - DOCKED DEVICE Routine 07/19/2024 5:11 PM CDT POCT GLUCOSE - DOCKED DEVICE Routine 07/19/2024 10:59 AM CDT COMPREHENSIVE METABOLIC PANEL Routine 07/19/2024 6:03 AM CDT CBC W/DIFF AUTOMATED Routine 07/19/2024 6:03 AM CDT POCT GLUCOSE - DOCKED DEVICE Routine 07/19/2024 6:01 AM CDT US UP EXT NONVASC LTD LT Today 07/19/2024 4:23 AM CDT POCT GLUCOSE - DOCKED DEVICE Routine 07/18/2024 8:15 PM CDT FOLIC ACID SERUM Routine 07/18/2024 4:31 PM CDT Anemia VITAMIN B-12 Routine 07/18/2024 4:31 PM CDT Anemia POCT GLUCOSE - DOCKED DEVICE Routine 07/18/2024 4:18 PM CDT POCT GLUCOSE - DOCKED DEVICE Routine 07/18/2024 12:25 PM CDT POCT GLUCOSE - DOCKED DEVICE Routine 07/18/2024 6:06 AM CDT IRON SAT PANEL (IRON,IBC,%SAT) Routine 07/18/2024 5:31 AM CDT Anemia COMPREHENSIVE METABOLIC PANEL Routine 07/18/2024 5:31 AM CDT CBC W/DIFF AUTOMATED Routine 07/18/2024 5:31 AM CDT BETA 2 MICROGLOBULIN, SERUM (QST) Routine 07/17/2024 9:30 PM CDT Lytic lesion of bone on x-ray Chest wall pain LDH, LACTATE DEHYDROGENASE Routine 07/17/2024 9:30 PM CDT Lytic lesion of bone on x-ray Chest wall pain IMMUNOFIXATION Routine 07/17/2024 9:30 PM CDT Lytic lesion of bone on x-ray Chest wall pain IMMUNOGLOBULINS IGA IGG IGM Routine 07/17/2024 9:30 PM CDT Lytic lesion of bone on x-ray Chest wall pain KAPPA LAMBDA FREE RATIO (QST) Routine 07/17/2024 9:30 PM CDT Lytic lesion of bone on x-ray Chest wall pain PROTEIN, ELECTROPHORESIS Routine 07/17/2024 9:30 PM CDT Lytic lesion of bone on x-ray Chest wall pain COMPREHENSIVE METABOLIC PANEL Routine 07/17/2024 9:30 PM CDT CBC W/DIFF AUTOMATED Routine 07/17/2024 9:30 PM CDT POCT GLUCOSE - DOCKED DEVICE Routine 07/17/2024 7:59 PM CDT POCT GLUCOSE - DOCKED DEVICE Routine 07/17/2024 4:15 PM CDT POCT GLUCOSE - DOCKED DEVICE Routine 07/17/2024 2:24 PM CDT POCT GLUCOSE - DOCKED DEVICE Routine 07/17/2024 6:02 AM CDT POCT GLUCOSE - DOCKED DEVICE Routine 07/16/2024 8:49 PM CDT USV VAST TEAM MIDLINE INSERT >5YR Today 07/16/2024 6:18 PM CDT POCT GLUCOSE - DOCKED DEVICE Routine 07/16/2024 5:11 PM CDT POTASSIUM, SERUM STAT 07/16/2024 4:51 PM CDT POCT GLUCOSE - DOCKED DEVICE Routine 07/16/2024 2:35 PM CDT ECG 12-LEAD STAT 07/16/2024 1:34 PM CDT LACTIC ACID W REFLEX (SEPSIS) STAT 07/16/2024 1:28 PM CDT BASIC METABOLIC PANEL STAT 07/16/2024 1:28 PM CDT LACTIC ACID W REFLEX (SEPSIS) TIMED 07/16/2024 8:[address] CHEST+ABD+PEL WO CON STAT 07/16/2024 7:34 AM CDT MAGNESIUM STAT 07/16/2024 7:00 AM CDT LIPASE STAT 07/16/2024 7:00 AM CDT LDH, LACTATE DEHYDROGENASE STAT 07/16/2024 7:00 AM CDT LACTIC ACID W REFLEX (SEPSIS) STAT 07/16/2024 7:00 AM CDT COMPREHENSIVE METABOLIC PANEL STAT 07/16/2024 7:00 AM CDT CBC W/DIFF AUTOMATED STAT 07/16/2024 7:00 AM CDT IV PLACEMENT Routine 07/16/2024 6:30 AM CDT LIPID PANEL Routine 06/14/2024 4:23 AM CDT HEMOGLOBIN, GLYCOSYLATED STAT 06/13/2024 8:25 AM CDT HEPATITIS PANEL,ACUTE STAT 11/26/2019 12:09 PM CDT from Last 3 Months or Most Recently Relevant to Health Maintenance Results * CT HEAD WO CON (09/27/2024 11:27 PM CDT) Only the most recent of2 resultswithin the time period is included. Anatomical Region Laterality Modality Head Computed Tomogra phy 09/27/2024 11:5 0 PM CDT Impressions 09/27/2024 11:54 PM CDT IMPRESSION: 1. No evidence is seen to suggest acute intracranial hemorrhage, mass effect, or midline shift. 2. Atherosclerotic calcifications of the intracranial vasculature and probable changes of chronic ischemic microangiopathy. Referred By: Interpreted By: Reynaldo Cline DO, 09/27/2024 11:50 PM Narrative 09/27/2024 11:54 PM CDT [address] [place] [address] EXAMINATION: CT HEAD WO CON EXAM DATE: 09/27/2024 11:27 PM CLINICAL HISTORY: Altered mental status. Hypoglycemia. COMPARISON: CT head 08/19/2024 and 06/11/2024. TECHNIQUE: Axial unenhanced CT of the head was performed. Coronal and sagittal reformatted images were obtained and reviewed. A radiation dose lowering technique was used for this procedure, which may include, but is not limited to, dose reduction technique, automated exposure control, the use of iterative reconstruction, ALARA (As Low As Reasonably Achievable) techniques, and Image Gently techniques. FINDINGS: No evidence is seen to suggest discrete extra-axial fluid collection. Basal cisterns are grossly patent. No evidence is seen to suggest acute intracranial hemorrhage. There is no mass effect or midline shift. The ventricles are appropriate in size and configuration. There are atherosclerotic calcifications of the intracranial vasculature. There are scattered foci of hypoattenuation in the supratentorial white matter that are nonspecific, but likely reflect changes of chronic ischemic microangiopathy. No evidence is seen to suggest depressed calvarial fracture. The paranasal sinuses and mastoid air cells are clear. There have been prior lens replacements. Procedure Note Reynaldo Cline DO - 09/27/[address] [place] [address] EXAMINATION: CT HEAD WO CON EXAM DATE: 09/27/2024 11:27 PM CLINICAL HISTORY: Altered mental status. Hypoglycemia. COMPARISON: CT head 08/19/2024 and 06/11/2024. TECHNIQUE: Axial unenhanced CT of the head was performed. Coronal andsagittal reformatted images were obtained and reviewed. A radiation doselowering technique was used for this procedure, which may include, but isnot limited to, dose reduction technique, automated exposure control, theuse of iterative reconstruction, ALARA (As Low As Reasonably Achievable)techniques, and Image Gently techniques. FINDINGS: No evidence is seen to suggest discrete extra-axial fluid collection.Basal cisterns are grossly patent. No evidence is seen to suggest acuteintracranial hemorrhage. There is no mass effect or midline shift. Theventricles are appropriate in size and configuration. There areatherosclerotic calcifications of the intracranial vasculature. There arescattered foci of hypoattenuation in the supratentorial white matter thatare nonspecific, but likely reflect changes of chronic ischemicmicroangiopathy. No evidence is seen to suggest depressed calvarialfracture. The paranasal sinuses and mastoid air cells are clear. Therehave been prior lens replacements. IMPRESSION: 1. No evidence is seen to suggest acute intracranial hemorrhage, masseffect, or midline shift. 2. Atherosclerotic calcifications of the intracranial vasculature andprobable changes of chronic ischemic microangiopathy. Referred By: Interpreted By: Reynaldo Cline DO, 09/27/2024 11:50 PM Arsalan Blas DO CT Final Result * XR CHEST PORTABLE (09/27/2024 11:27 PM CDT) Anatomical Region Laterality Modality Chest Radiographic Jesica ging 09/27/2024 11:4 9 PM CDT Impressions 09/27/2024 11:52 PM CDT IMPRESSION: Cardiomegaly, vascular congestion, small bilateral pleural effusions and right mid to lower lung airspace opacities likely asymmetric edema and/or infection. Referred By: Interpreted By: Edison Kohli MD, 09/27/2024 11:49 PM Narrative 09/27/2024 11:52 PM CDT [address] [place] [address] Examination: Chest x-ray 1 view Exam Date/Time: 09/27/2024 11:27 PM REASON FOR EXAM: 64 years-old Female with altered mental status Comparison: Chest x-ray 06/18/2024, chest CT 07/16/2024 Technique: Single AP view of the chest was obtained. Findings: Heart size is enlarged, similar to prior. Airspace opacities in the right mid to lower lung. Vascular congestion. Linear likely atelectasis at the left lung base. Small bilateral pleural effusions. No pneumothorax. No acute osseous lesions are seen. Procedure Note Edison Kohli MD - 09/27/2024 [place] [address] [facility] [address] Examination: Chest x-ray 1 view Exam Date/Time: 09/27/2024 11:27 PM REASON FOR EXAM: 64 years-old Female with altered mental status Comparison: Chest x-ray 06/18/2024, chest CT 07/16/2024 Technique: Single AP view of the chest was obtained. Findings: Heart size is enlarged, similar to prior. Airspace opacities in the right mid to lower lung. Vascular congestion.Linear likely atelectasis at the left lung base. Small bilateral pleuraleffusions. No pneumothorax. No acute osseous lesions are seen. IMPRESSION: Cardiomegaly, vascular congestion, small bilateral pleural effusions andright mid to lower lung airspace opacities likely asymmetric edema and/orinfection. Referred By: Interpreted By: Edison Kohli MD, 09/27/2024 11:49 PM us Arsalan Blas DO GENERAL IMAGING Final Result * (ABNORMAL) PARTIAL THROMBOPLASTIN TIME,PTT (09/27/2024 11:02 PM CDT) Only the most recent of2 resultswithin the time period is included. PTT 24.0(L) 25.1 - 36.5 SEC 09/27/2024 11:16 PM CDT [facility] 09/27/2024 11:0 2 PM CDT us Arsalan Blas DO LABORATORY Final Result [facility] LAB [address] [place] [address], [place] [phone] * PROTIME/INR, VENOUS (09/27/2024 11:02 PM CDT) Only the most recent of2 resultswithin the time period is included. PROTIME 11.5 9.4 - 12.5 SEC 09/27/2024 11:16 PM CDT [facility] INR 1.0 0.8 - 1.0 09/27/2024 11:16 PM CDT [facility] 09/27/2024 11:0 2 PM CDT us Arsalan Blas DO LABORATORY Final Result [facility] [address] [place] [address], * (ABNORMAL) COMPREHENSIVE METABOLIC PANEL (09/27/2024 11:02 PM CDT) Only the most recent of8 resultswithin the time period is included. Pathologist [facility] SODIUM S/P/B 132(L) 136 - 145 MMOL/L 09/27/2024 11:49 PM CDT [facility] POTASSIUM S/P/B 3.3(L) 3.5 - 5.1 MMOL/L 09/27/2024 11:49 PM CDT [facility] CHLORIDE S/P/B 98 98 - 107 MMOL/L 09/27/2024 11:49 PM CDT [facility] CO2 25.5 21.0 - 32.0 MMOL/L 09/27/2024 11:49 PM CDT [facility] GLUCOSE 128(H) 70 - 99 MG/DL 09/27/2024 11:49 PM CDT [facility] Comment: FASTING GLUCOSE 100 TO 125 MG/DL IS CONSISTENT WITH IMPAIRED FASTING GLUCOSE. FASTING GLUCOSE >125 MG/DL IS CONSISTENT WITH DIABETES. RANDOM GLUCOSE >200 MG/DL WITH HYPERGLYCEMIC SYMPTOMS IS CONSISTENT WITH DIABETES. PER ADA GUIDELINES BUN 16 6 - 24 MG/DL 09/27/2024 11:49 PM CDT [facility] CREATININE S/P/B 5.83(H) 0.55 - 1.02 MG/DL 09/27/2024 11:49 PM T [facility] CALCIUM S/P/B 10.2 8.4 - 10.5 MG/DL 09/27/2024 11:49 PM [facility] BILIRUBIN TOTAL S/P/B 0.3 0.2 - 1.0 MG/DL 09/27/2024 11:49 PM T [facility] Comment: THIS ASSAY IS NOT RECOMMENDED FOR PATIENTS UNDERGOING TREATMENT WITH ELTROMBOPAG DUE TO THE POTENTIAL FOR FALSELY ELEVATED RESULTS. ALKALINE PHOSPHATASE S/P/B 70 50 - 130 U/L 09/27/2024 11:49 PM T [facility] AST 14(L) 15 - 37 U/L 09/27/2024 11:49 PM [facility] ALT 11(L) 14 - 59 U/L 09/27/2024 11:49 PM [facility] TOTAL PROTEIN S/P/B 6.9 6.4 - 8.2 G/DL 09/27/2024 11:49 PM [facility] ALBUMIN S/P/B 3.2(L) 3.4 - 5.0 G/DL 09/27/2024 11:49 PM [facility] ANION GAP 8.5 5.0 - 15.0 MMOL/L 09/27/2024 11:49 PM [facility] OSMOLALITY (CALC) 277 MOSM/KG 025 11:49 PM [facility] Comment:REFERENCE RANGE NOT ESTABLISHED GFR ESTIMATE 8(L) >89 ML/MIN/1. 73 M2 09/27/2024 11:49 PM T [facility] GFR NOTES GFR REFERENCE S: 09/27/2024 11:49 PM [facility] Comment: THE ESTIMATED GFR IS CALCULATED USING THE 2020 CKD-EPI EQUATION. THE FOLLOWING CATEGORIES FOR GRADING RENAL FUNCTION ARE RECOMMENDED BY THE INTERNATIONAL SOCIETY OF NEPHROLOGY (KDIGO 2012 CLINICAL PRACTICE GUIDELINE). G1,NORMAL OR HIGH: >89 ml/min/1.73 m2 G2,MILDLY DECREASED: 60-89 ml/min/1.73 m2 G3A,MILDLY TO MODERATELY DECREASED: 45-59 ml/min/1.73 m2 G3B,MODERATELY TO SEVERELY DECREASED: 30-44 ml/min/1.73 m2 G4,SEVERELY DECREASED: 15-29 ml/min/1.73 m2 G5,KIDNEY FAILURE: <15 ml/min/1.73 m2 09/27/2024 11:0 2 PM CDT Arsalan Blas DO LABORATORY Final Result [facility] [address] [place] [address], * (ABNORMAL) CBC W/DIFF AUTOMATED (09/27/2024 11:02 PM CDT) Only the most recent of8 resultswithin the time period is included. WBC 17.36(H) 4.00 - 10.80 x10'3/uL 09/27/2024 11:14 PM CDT [facility] RBC 4.28 4.10 - 5.40 x10'6/uL 09/27/2024 11:14 PM CDT [facility] HGB 12.2 12.0 - 16.0 G/DL 09/27/2024 11:14 PM CDT [facility] HCT 37.0 36.0 - 47.0 % 09/27/2024 11:14 PM CDT [facility] MCV 86.4 78.0 - 100.0 FL 09/27/2024 11:14 PM CDT [facility] MCH 28.5 27.0 - 31.0 PG 09/27/2024 11:14 PM CDT [facility] MCHC 33.0 33.0 - 36.0 G/DL 09/27/2024 11:14 PM CDT [facility] RDW 13.4 11.5 - 14.5 % 09/27/2024 11:14 PM CDT [facility] PLT 302 150 - 350 x10'3/uL 09/27/2024 11:14 PM CDT [facility] MPV 9.7 7.4 - 10.4 FL 09/27/2024 11:14 PM CDT [facility] CBC COMMENT NORMAL REFERENCE RANGE NOT ESTABLISHED FOR THE PROPORTIONAL LEUKOCYTE DIFFERENTIAL. 09/27/2024 11:14 PM CDT [facility] NEUTROPHILS % 93.5 % 09/27/2024 11:34 PM CDT [facility] LYMPHOCYTES % 2.1 % 09/27/2024 11:34 PM CDT [facility] MONOCYTES % 3.4 % 09/27/2024 11:34 PM CDT [facility] EOSINOPHILS % 0.1 % 09/27/2024 11:34 PM CDT [facility] BASOPHILS % 0.5 % 09/27/2024 11:34 PM CDT [facility] IMMATURE GRANS % 0.4 % 09/28/19 11:34 PM CDT [facility] NRBC % 0.0 % 09/27/2024 11:34 PM CDT [facility] ABS. NEUTROPHILS 16.23(H) 1.60 - 8.30 x10'3/uL 09/27/2024 11:34 PM CDT [facility] ABS. LYMPHOCYTES 0.36(L) 0.80 - 4.70 x10'3/uL 09/27/2024 11:34 PM CDT [facility] ABS. MONOCYTES 0.59 0.00 - 1.50 x10'3/uL 09/27/2024 11:34 PM CDT [facility] ABS. EOSINOPHILS 0.02 0.00 - 0.40 x10'3/uL 09/27/2024 11:34 PM CDT [facility] ABS. BASOPHILS 0.09 0.00 - 0.20 x10'3/uL 09/27/2024 11:34 PM CDT [facility] ABS. IMMATURE GRANULOCYTES 0.07(H) 0.00 - 0.03 x10'3/uL 09/27/2024 11:34 PM CDT [facility] ABS. NUCLEATED RBC'S 0.00 0.00 - 0.01 x10'3/uL 09/27/2024 11:34 PM CDT [facility] PLT MORPH. NORMAL 09/27/2024 11:34 PM CDT [facility] RBC MORPHOLOGY NORMAL 09/27/2024 11:34 PM CDT [facility] 09/27/2024 11:0 2 PM CDT us Arsalan Blas DO LABORATORY Final Result Performing Organization Address City/[facility]/ZIP Co de Phone Number [facility] [address] [place] [address], [place] [phone] * AMYLASE (09/27/2024 11:02 PM CDT) AMYLASE S/P/B 48 25 - 115 UNITS/L 09/27/2024 11:49 PM CDT [facility] 09/27/2024 11:0 2 PM CDT us Arsalan Blas DO LABORATORY Final Result Performing Organization Address [facility] Co de Phone Number [address] [address], [place] [phone] * LIPASE (09/27/2024 11:02 PM CDT) Only the most recent of4 resultswithin the time period is included. LIPASE 25 16 - 77 UNITS/L 09/27/2024 11:49 PM CDT [facility] 09/27/2024 11:0 2 PM CDT us Arsalan Blas DO LABORATORY Final Result Performing Organization Address City/[facility] Co de Phone Number [facility] [address] [place] [address], [place] [phone] * (ABNORMAL) POCT glucose (09/27/2024 10:26 PM CDT) Only the most recent of18 resultswithin the time period is included. GLUCOSE POC 104(H) 70 - 99 MG/DL 09/27/2024 11:40 PM CDT [facility] 09/27/2024 10:2 6 PM CDT us Attending Physician Emergency MD POCT ORDERABLES - DEVICE Final Result Performing Organization Address City/[facility]/ZIP Co de Phone Number [facility] [address] [place] [address], * TROPONIN, QUANT (09/23/2024 9:29 PM CDT) Only the most recent of2 resultswithin the time period is included. [facility] TROPONIN I HIGH SENSITIVITY 51 0 - 53 ng/L 09/23/2024 9:59 PM CDT [facility] 09/23/2024 9:29 PM CDT Angelo Nava MD LABORATORY Final Result Performing Organization Address [facility] Co de Phone Number [facility] [address] [place] [address], [place] [phone] * ECG 12 lead (09/23/2024 8:01 PM CDT) Only the most recent of2 resultswithin the time period is included. 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 : 1960 Requested By: ANGELO NAVA Order Number: [id number] Reading MD: Sai Blake Measurements Intervals [place] Rate: 74 P: 39 NV: 213 QRS: 62 QRSD: 89 T: 124 QT: 403 QTc: 449 Interpretive Statements SINUS RHYTHM WITH FIRST DEGREE AV BLOCK INDETERMINATE AXIS NONSPECIFIC T-WAVE ABNORMALITY Poor R Wave Progression - r/o old awmi Procedure Note Sai Blake MD - 09/24/2024 [facility] Test Date: 2024-09-23 Pat Name: TYSON SMITH Department: 70 Room: EXAM Gender: Female [employer] Custodian: 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 : 1960 Requested By: ANGELO NAVA Order Number: [id number] Reading MD: Sai Blake Measurements Intervals [place] Rate: 74 P: 39 NV: 213 QRS: 62 QRSD: 89 T: 124 QT: 403 QTc: 449 Interpretive Statements SINUS RHYTHM WITH FIRST DEGREE AV BLOCK INDETERMINATE AXIS NONSPECIFIC T-WAVE ABNORMALITY Poor R Wave Progression - r/o old awmi us Angelo Nava MD ECG ORDERABLES Final Result Performing Organization Address City/State/[facility] Co de Phone Number [facility] * CT ABD+PEL W IV CON ONLY (09/23/2024 7:43 PM CDT) Anatomical Region Laterality Modality Abdomen Computed Tomogra phy 09/23/2024 8:18 PM CDT Impressions 09/23/2024 9:45 PM CDT Impression: 1. Increased reticular markings in the bilateral lung bases which can be seen with edema, atelectasis and/or pneumonia. There is at least a moderate right-sided and small left-sided pleural effusion. 2. Borderline hepatomegaly and splenomegaly. 3. Bilateral renal atrophy with unchanged nephrolithiasis. Numerous tiny renal cystic lesions, too small to characterize Dictated By: Minesh Her MD on 09/23/2024 8:18 PM The attending radiologist has reviewed the image(s) and agrees with the content of this report. Ordered By: ANGELO NAVA Interpreted By: Minesh Her MD, 09/23/2024 8:18 PM Narrative 09/23/2024 9:[address] PM [address] [address] Examination: CT abdomen and pelvis with IV contrast. Exam time: 09/23/2024 7:40 PM Clinical Information: Abdominal pain Comparison:CT abdomen pelvis 09/03/2024 Technique: IV contrast: 100 mL Isovue 370.was administered without immediate complications. Oral contrast: None. Technical comments: Standard technique with sagittal and coronal reconstructions. Dose reduction: This CT exam was performed using dose lowering techniques, which may include, but is not limited to, dose reduction technique, automated exposure control, and/or the use of iterative reconstruction, in accordance with ALARA (As Low As Reasonably Achievable)/Image Gently principle. Findings: LOWER CHEST Partially visualized increased reticular markings in the bilateral lung bases which can be seen with developing edema, atelectasis and/or pneumonia. There is additionally small focal consolidation in the right lower lobe, which is favored to be secondary to atelectasis. Few small scattered calcified granulomas.Partially visualized [id number] right-sided pleural effusion. Small left-sided pleural effusion is partially visualized. Prominent right paraesophageal lymph nodes at the right lung base (best seen on series 5 image 56), unchanged when compared with multiple prior exams dating back to at least 2021, possibly reactive. UPPER ABDOMEN Liver and bile ducts: Liver is upper limits of normal for size. Normal-appearing contour.Scattered calcified granulomas in the liver. Prominent common bile duct. This is favored to be related to reservoir effect. Gallbladder: Surgically absent Pancreas: The pancreas has normal morphology without any peripancreatic inflammation. Spleen: Upper limits of normal for size. Scattered calcified granulomas in the spleen. RETROPERITONEUM Adrenals: Unchanged bilateral thickened adrenal glands. Kidneys: Bilateral renal atrophy with vascular calcifications. There is additionally unchanged nonobstructive calcifications in the right renal pelvis/proximal ureter series 2 image 101. There is additionally a 4 mm calcification in the left proximal ureter/pelvis which again is stable with previous imaging. Tiny cystic lesions seen throughout the kidneys, too small to characterize Lymph nodes: No lymphadenopathy in the abdomen or pelvis. BOWEL AND PERITONEUM Stomach:The stomach has normal morphology Bowel: The rectum is mildly dilated. This nonspecific. The remaining bowel is normal in caliber and wall thickness. Appendix:The appendix is surgically absent. Free air or fluid: None. VASCULATURE The abdominal aorta is normal in caliber. There are moderate to severe calcifications of the abdominal aorta and common iliac arteries. PELVIS The urinary bladder is nondistended. Stable appearance of the left ovarian cyst. The right ovary is normal in appearance. BONES/SOFT TISSUES No acute fracture or aggressive osseous lesion is identified. Anterior ossified formation across multiple levels of the visualized thoracolumbar spine consistent with diffuse idiopathic skeletal hyperostosis. Procedure Note Hank Samano MD - 09/23/2024 [facility] [address] [place], [place] [address] Examination: CT abdomen and pelvis with IV contrast. Exam time: 09/23/2024 7:40 PM Clinical Information: Abdominal pain Comparison:CT abdomen pelvis 09/03/2024 Technique: IV contrast: 100 mL Isovue 370.was administered without immediatecomplications. Oral contrast: None. Technical comments: Standard technique with sagittal and coronalreconstructions. Dose reduction: This CT exam was performed using dose lowering techniques,which may include, but is not limited to, dose reduction technique,automated exposure control, and/or the use of iterative reconstruction, inaccordance with ALARA (As Low As Reasonably Achievable)/Image Gentlyprinciple. Findings: LOWER CHEST Partially visualized increased reticular markings in the bilateral lungbases which can be seen with developing edema, atelectasis and/orpneumonia. There is additionally small focal consolidation in the rightlower lobe, which is favored to be secondary to atelectasis. Few smallscattered calcified granulomas.Partially visualized oexrx-fu-[id number]-sided pleural effusion. Small left-sided pleural effusion ispartially visualized. Prominent right paraesophageal lymph nodes at theright lung base (best seen on series 5 image 56), unchanged when comparedwith multiple prior exams dating back to at least 2021, possiblyreactive. UPPER ABDOMEN Liver and bile ducts: Liver is upper limits of normal for size.Normal-appearing contour.Scattered calcified granulomas in the liver.Prominent common bile duct. This is favored to be related to reservoireffect. Gallbladder: Surgically absent Pancreas: The pancreas has normal morphology without any peripancreaticinflammation. Spleen: Upper limits of normal for size. Scattered calcified granulomas inthe spleen. RETROPERITONEUM Adrenals: Unchanged bilateral thickened adrenal glands. Kidneys: Bilateral renal atrophy with vascular calcifications. There isadditionally unchanged nonobstructive calcifications in the right renalpelvis/proximal ureter series 2 image 101. There is additionally a 4 mmcalcification in the left proximal ureter/pelvis which again is stablewith previous imaging. Tiny cystic lesions seen throughout the kidneys,too small to characterize Lymph nodes: No lymphadenopathy in the abdomen or pelvis. BOWEL AND PERITONEUM Stomach:The stomach has normal morphology Bowel: The rectum is mildly dilated. This nonspecific. The remaining bowelis normal in caliber and wall thickness. Appendix:The appendix is surgically absent. Free air or fluid: None. VASCULATURE The abdominal aorta is normal in caliber. There are moderate to severecalcifications of the abdominal aorta and common iliac arteries. PELVIS The urinary bladder is nondistended. Stable appearance of the left ovariancyst. The right ovary is normal in appearance. BONES/SOFT TISSUES No acute fracture or aggressive osseous lesion is identified. Anteriorossified formation across multiple levels of the visualized thoracolumbarspine consistent with diffuse idiopathic skeletal hyperostosis. Impression: 1. Increased reticular markings in the bilateral lung bases which can beseen with edema, atelectasis and/or pneumonia. There is at least amoderate right-sided and small left-sided pleural effusion. 2. Borderline hepatomegaly and splenomegaly. 3. Bilateral renal atrophy with unchanged nephrolithiasis. Numerous tinyrenal cystic lesions, too small to characterize Dictated By: Minesh Her MD on 09/23/2024 8:18 PM The attending radiologist has reviewed the image(s) and agrees with thecontent of this report. Ordered By: ANGELO NAVA Interpreted By: Minesh Her MD, 09/23/2024 8:18 PM us Angelo Nava MD CT Final Result * CT ABD+PEL WO CON (09/03/2024 12:46 PM CDT) Anatomical Region Laterality Modality Abdomen Computed Tomogra phy 09/03/2024 12:5 5 PM CDT Impressions 09/03/2024 1:27 PM CDT IMPRESSION: 1. Enlarging bilateral pleural effusions, right greater than left. 2. No acute intra-abdominal or intrapelvic process identified. 3. Additional chronic/nonurgent findings as described. Ordered By: JAMIE SCHUMACHER Interpreted By: Jerardo Singleton MD, 09/03/2024 12:55 PM Narrative 09/03/2024 1:27 PM CDT [facility] [address] [place] [address] Examination: CT of the abdomen and pelvis without contrast. Exam time: 1247 hours. Clinical history: Abdominal pain. Nausea and vomiting. History of diabetes with renal failure, on dialysis. Prior cholecystectomy and appendectomy. Comparison: CT of the chest, abdomen and pelvis, 07/16/2024. Technique: Spiral scanning was performed through the abdomen and pelvis without contrast. Sagittal and coronal reconstructions were performed from the data set. A dose lowering technique was used for this procedure, which may include, but is not limited to, dose reduction techniques, automated exposure control, the use of iterative reconstruction and ALARA/Image Gently techniques. Findings: Bilateral pleural effusions have enlarged, now moderate sized on the right and small to moderate-sized on the left. There is associated compressive atelectasis. Calcified granulomatous scarring at the lung bases is again evident. There are areas of subsegmental atelectasis at both lung bases. Calcific coronary artery disease and mitral annular calcification again evident. There is stable mild four-chamber cardiac enlargement. Small hiatal hernia has spontaneously reduced. The gallbladder is not identified, compatible with the history. Calcified hepatic and splenic granulomas are again evident. The liver, spleen, pancreas and adrenal glands are otherwise unremarkable for the noncontrast technique. Marked bilateral renal atrophy is again evident, concordant with the history. Bilateral nephrolithiasis is similar to previous. No ureteral calculi or signs of obstructive uropathy are identified. The urinary bladder is nearly empty. Dystrophic myometrial calcifications are again evident, not unusual for age. The uterus is otherwise unremarkable. Approximately 1.2 cm left adnexal cyst, presumably ovarian, is again noted and stable, of doubtful clinical significance. The appendix is not identified, compatible with the history. There is no ascites, lymphadenopathy or bowel distention. The caliber of the abdominal aorta is normal. Procedure Note Mani, Kurtz M, MD - 09/03/2024 [place] [id number] [place] [address] Examination: CT of the abdomen and pelvis without contrast. Exam time: 1247 hours. Clinical history: Abdominal pain. Nausea and vomiting. History of diabeteswith renal failure, on dialysis. Prior cholecystectomy and appendectomy. Comparison: CT of the chest, abdomen and pelvis, 07/16/2024. Technique: Spiral scanning was performed through the abdomen and pelviswithout contrast. Sagittal and coronal reconstructions were performed fromthe data set. A dose lowering technique was used for this procedure,which may include, but is not limited to, dose reduction techniques,automated exposure control, the use of iterative reconstruction andALARA/Image Gently techniques. Findings: Bilateral pleural effusions have enlarged, now moderate sized onthe right and small to moderate-sized on the left. There is associatedcompressive atelectasis. Calcified granulomatous scarring at the lungbases is again evident. There are areas of subsegmental atelectasis atboth lung bases. Calcific coronary artery disease and mitral annularcalcification again evident. There is stable mild four-chamber cardiacenlargement. Small hiatal hernia has spontaneously reduced. Thegallbladder is not identified, compatible with the history. Calcifiedhepatic and splenic granulomas are again evident. The liver, spleen,pancreas and adrenal glands are otherwise unremarkable for the noncontrasttechnique. Marked bilateral renal atrophy is again evident, concordantwith the history. Bilateral nephrolithiasis is similar to previous. Noureteral calculi or signs of obstructive uropathy are identified. Theurinary bladder is nearly empty. Dystrophic myometrial calcifications areagain evident, not unusual for age. The uterus is otherwise unremarkable.Approximately 1.2 cm left adnexal cyst, presumably ovarian, is again notedand stable, of doubtful clinical significance. The appendix is notidentified, compatible with the history. There is no ascites,lymphadenopathy or bowel distention. The caliber of the abdominal aorta isnormal. IMPRESSION: 1. Enlarging bilateral pleural effusions, right greater than left. 2. No acute intra-abdominal or intrapelvic process identified. 3. Additional chronic/nonurgent findings as described. Ordered By: JAMIE SCHUMACHER Interpreted By: Jerardo Singleton MD, 09/03/2024 12:55 PM us Jamie Schumacher MD CT Final Result * CK (CPK) (08/19/2024 10:29 AM CDT) CPK 69 26 - 192 U/L 08/19/2024 10:55 AM CDT [facility] 08/19/2024 10:2 9 AM CDT us Sai Faria DO LABORATORY Final Result [facility] [address] [place] [address], * CT FACIAL BONES WO CON (08/19/2024 10:14 AM CDT) Anatomical Region Laterality Modality Facial Computed Tomogra phy 08/19/2024 10:1 9 AM CDT Impressions 08/19/2024 10:36 AM CDT IMPRESSION: 1. Left frontal scalp hematoma and moderate nonspecific left preseptal periorbital soft tissue thickening which may reflect contusion and/or cellulitis. No discrete fracture, intracranial hemorrhage, or post septal soft tissue stranding. 2. Senescent changes, atherosclerosis, and the sequelae of chronic small vessel disease without acute or localizing intracranial abnormality. Referred By: Interpreted By: Haseeb Pierre MD, 08/19/2024 10:19 AM Narrative 08/19/2024 10:36 AM CDT [address] [place] [address] EXAMINATION: CT HEAD WO CON, CT FACIAL BONES WO CON [id number] INDICATIONS: FALL LAST NIGHT, BRUISING OF LEFT FACE WITH SWELLING OF UPPER AND LOWER EYELIDS COMPARISON: CT head 06/11/2024; CTA head and neck 06/14/2024. TECHNIQUE: Contiguous unenhanced axial CT images through the head with coronal and sagittal reformats. A dose lowering technique was used for this procedure, which may include, but is not limited to, dose reduction technique, automated exposure control, the use of iterative reconstruction, and ALARA (As Low As Reasonably Achievable) / Image Gently techniques. FINDINGS: New 1.6 cm left frontal scalp hematoma with moderate soft tissue thickening throughout the preseptal left periorbital soft tissues. No discrete soft tissue defect or radiodense foreign body. No intracranial hemorrhage or evident sulcal effacement. No calvarial fracture. The postseptal soft tissues are clear and the globes are grossly intact. The zygomatic arches, orbital rims, and pterygoid plates are intact. No nasal, maxillary, or mandibular fracture. Patient is edentulous. No inflammatory debris or air fluid level within the visualized paranasal sinuses. Calcification of the stylohyoid ligaments. Mild temporomandibular osteoarthrosis bilaterally. Mild global parenchymal involution with concordant prominence the CSF containing spaces. The ventricles are symmetric and the basilar cisterns are patent. No intracranial mass, mass effect, or midline shift. Mild ill-defined periventricular and subcortical white matter hypoattenuation. The basal ganglia and insula are maintained. Dense atherosclerotic calcification of intracranial internal carotid arteries. No hyperdense arterial sign. Mild hyperostosis frontalis without aggressive osseous abnormality. Procedure Note Haseeb Pierre MD - 08/19/[address] [place] [address] EXAMINATION: CT HEAD WO CON, CT FACIAL BONES WO CON [id number] INDICATIONS: FALL LAST NIGHT, BRUISING OF LEFT FACE WITH SWELLING OF UPPERAND LOWER EYELIDS COMPARISON: CT head 06/11/2024; CTA head and neck 06/14/2024. TECHNIQUE: Contiguous unenhanced axial CT images through the head withcoronal and sagittal reformats. A dose lowering technique was used for this procedure, which may include,but is not limited to, dose reduction technique, automated exposurecontrol, the use of iterative reconstruction, and ALARA (As Low AsReasonably Achievable) / Image Gently techniques. FINDINGS: New 1.6 cm left frontal scalp hematoma with moderate soft tissuethickening throughout the preseptal left periorbital soft tissues. No discrete soft tissue defect or radiodense foreign body. No intracranial hemorrhage or evident sulcal effacement. No calvarial fracture. The postseptal soft tissues are clear and the globes are grossly intact. The zygomatic arches, orbital rims, and pterygoid plates are intact. No nasal, maxillary, or mandibular fracture. Patient is edentulous. No inflammatory debris or air fluid level within the visualized paranasalsinuses. Calcification of the stylohyoid ligaments. Mild temporomandibular osteoarthrosis bilaterally. Mild global parenchymal involution with concordant prominence the CSFcontaining spaces. The ventricles are symmetric and the basilar cisterns are patent. No intracranial mass, mass effect, or midline shift. Mild ill-defined periventricular and subcortical white matterhypoattenuation. The basal ganglia and insula are maintained. Dense atherosclerotic calcification of intracranial internal carotidarteries. No hyperdense arterial sign. Mild hyperostosis frontalis without aggressive osseous abnormality. IMPRESSION: 1. Left frontal scalp hematoma and moderate nonspecific left preseptalperiorbital soft tissue thickening which may reflect contusion and/orcellulitis. No discrete fracture, intracranial hemorrhage, or post septalsoft tissue stranding. 2. Senescent changes, atherosclerosis, and the sequelae of chronic smallvessel disease without acute or localizing intracranial abnormality. Referred By: Interpreted By: Haseeb Pierre MD, 08/19/2024 10:19 AM us Sai Faria DO CT Final Result * USV ART DUPLEX UP LT (07/23/2024 2:59 PM CDT) Anatomical Region Laterality Modality Extremity Ultrasound 07/18/2024 1:53 PM CDT Narrative 07/18/2024 9:27 PM CDT S PVI DIALYSIS AVF Pat.Name: TYSON SMITH Pat.ID: [id number] .Date: 07/18/2024 Refer.MD: NASIR LEYVA Exam Time: 1:53:00 PM Study Type:PVI DIALYSIS AVF Height: 165 cm Age: 4 1960,64Y Sex: F Sonogrphr: Alex Damon, RVT Pat. Stat.:Inpatient Room: 458 ICD - 9: Z09 Follow-up post-op CPT - 4: 99000 Arterial Duplex UE Reason for Study:Follow-up post-op Race: W ++++++++++++++++++++++++++++++++++++ FINDINGS: ++++++++++++++++++++++++++++++++++++ Lt Upper Ext: There is a patent AV fistula involving the left cephalic vein and the brachial artery. There is normal velocities within the left prox anastomosis. There were normal flow volumes in the proximal dialysis graft at 1788 cc/min with a diameter of .92 cm. - ++++++++++++++++++++++++++++++++++++ MEASUREMENTS: ++++++++++++++++++++++++++++++++++++ GRAFT Left Prox [place] Brachiocephalic:AV Fistula Aury Vessel PSV 183 cm/s Aury Vessel EDV 56 cm/s Left Prox Anastomosis Brachiocephalic:AV Fistula Prox Anast PSV 160 cm/s Prox Anast EDV 72 cm/s Left Prox Brachiocephalic:AV Fistula Prox PSV 210 cm/s Prox EDV 89 cm/s Left Mid Brachiocephalic:AV Fistula Mid PSV 99 cm/s Mid EDV 42 cm/s Left Dist Brachiocephalic:AV Fistula Dist PSV 51 cm/s Dist EDV 31 cm/s <Electronic Signature> 07/18/2024 09:27 PM Rylee Rocha M.D. Procedure Note Rylee Rocha MD - 07/18/2024 [facility] PVI DIALYSIS AVF Pat.Name: TYSON SMITH Pat.ID: [id number] .Date: 07/18/2024 Refer.MD: NASIR LEYVA Exam Time: 1:53:00 PM Study Type:PVI DIALYSIS AVF Height: 165 cm Age: 4 1960,64Y Sex: F Sonogrphr: Alex Damon RVT Pat. Stat.:Inpatient Room: 458 ICD - 9: Z09 Follow-up post-op CPT - 4: 24967 Arterial Duplex UE Reason for Study:Follow-up post-op Race: W ++++++++++++++++++++++++++++++++++++ FINDINGS: ++++++++++++++++++++++++++++++++++++ Lt Upper Ext: There is a patent AV fistula involving the left cephalic vein and the brachial artery. There is normal velocities within the left prox anastomosis. There were normal flow volumes in the proximal dialysis graft at 1788 cc/min with a diameter of .92 cm. - ++++++++++++++++++++++++++++++++++++ MEASUREMENTS: ++++++++++++++++++++++++++++++++++++ GRAFT Left Prox [place] Brachiocephalic:AV Fistula Aury Vessel PSV 183 cm/s Aury Vessel EDV 56 cm/s Left Prox Anastomosis Brachiocephalic:AV Fistula Prox Anast PSV 160 cm/s Prox Anast EDV 72 cm/s Left Prox Brachiocephalic:AV Fistula Prox PSV 210 cm/s Prox EDV 89 cm/s Left Mid Brachiocephalic:AV Fistula Mid PSV 99 cm/s Mid EDV 42 cm/s Left Dist Brachiocephalic:AV Fistula Dist PSV 51 cm/s Dist EDV 31 cm/s <Electronic Signature> 07/18/2024 09:27 PM Rylee Rocha M.D. Nasir Leyva MD [facility] Final Result * IMMUNOFIXATION, URINE RANDOM (EVANGELISTA) (07/20/2024 10:35 AM CDT) IMMUNOFIXATION URINE SEE PATHOLOGIST'S INTERPRETATION 07/23/2024 2:32 PM CDT [facility] IMMUNOFIXATION INTERPRETATION (U) THIS URINE IMMUNOTYPING WAS INTERPRETED BY 07/24/2024 10:29 AM CDT [facility] Comment: DR BASIM THOMAS MONOCLONAL PROTEIN NOT IDENTIFIED BENCE KATHLEEN PROTEIN NOT DETECTED. URINE SPECIMEN / Unknown 07/20/2024 10:35 AM CDT us Abdi Mcclain MD URINE ORDERABLES Final Resul t Performing Organization Address [facility] de Phone Number [facility] [address] [place] [address], [phone] * (ABNORMAL) PROTEIN ELECTROPHORESIS URINE RANDOM (07/20/2024 10:35 AM CDT) PROTEIN URINE TOTAL RANDOM 1,758.6(H) <12.0 MG/DL 07/23/2024 2:30 PM CDT [facility] INTERPRETATION THIS URINE PEP WAS INTERPRETED BY 07/24/2024 10:28 AM CDT [facility] Comment: DR BASIM THOMAS THERE IS MARKED RANDOM PROTEINURIA COMPOSED OF LOW MOLECULAR WEIGHT PROTEIN (SELECTIVE PROTEINURIA). A MONOCLONAL PROTEIN (BENCE KATHLEEN PROTEIN) IS NOT SEEN. URINE SPECIMEN / Unknown 07/20/2024 10:35 AM CDT us Abdi Mcclain MD URINE ORDERABLES Final Resul t Performing Organization Address [facility] de Phone Number [facility] [address] [place] [address], [phone] * HEPATITIS B SURFACE AG, EIA (07/20/2024 6:03 AM CDT) HEPATITIS B SURFACE AG NON-REACTI VE NON-REACTI VE 07/20/2024 10:38 AM CDT [facility] Comment:HBsAg NOT DETECTED. 07/20/2024 6:03 AM CDT us Jarrell Navarrete MD LABORATORY Final Resu lt Performing Organization Address City/[facility]/ZIP Co de Phone Number [facility] [address] [place] [address], [place] [phone] * (ABNORMAL) HEPATITIS B SURFACE ANTIBODY (07/20/2024 6:03 AM CDT) HEP B SURFACE AB <3.1(L) >9.9 MIU/ML 07/20/2024 10:38 AM CDT [facility] Comment:INDIVIDUAL IS CONSID ERED NOT IMMUNE TO HBV INFECTION. 07/20/2024 6:03 AM CDT us Jarrell Navarrete MD LABORATORY Final Resu lt Performing Organization Address [facility] Co de Phone Number [facility] [address] [place] [address], [place] [phone] * US UP EXT NONVASC LTD LT (07/19/2024 4:23 AM CDT) Anatomical Region Laterality Modality Extremity Ultrasound 07/20/2024 10:1 5 AM CDT Impressions 07/20/2024 10:19 AM CDT IMPRESSION: Left arm AV fistula (presumably radius cephalic) not completely assessed. However, with regard to soft tissue swelling, there are 2 small ovoid areas with low- level internal echoes, appearance most suggestive of access-related hematomas. Ordered By: NASIR LEYVA Interpreted By: Ward Tee MD, 07/20/2024 10:15 AM Narrative 07/20/2024 10:19 AM CDT [facility] [address] [place], [place] [address] EXAM: Nonvascular ultrasound left upper extremity INDICATION: Soft tissue swelling around AV fistula. Evaluate for hematoma or fluid collection. COMPARISON: None FINDINGS: Left forearm was scanned in the region of the patient's AV fistula. Detailed assessment of the fistula and hemodynamics was not performed. 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 Adjacent to the fistula, there are 2 hypoechoic but not anechoic ovoid areas with variable internal echogenicity and no color flow. These measure 2.1 x 1.9 x 2.5 cm and 3.0 x 1.6 x 1.8 cm. These most likely represent small hematomas probably related to traumatic fistula access. Procedure Note Ward Tee MD - 07/20/[address] [address] EXAM: Nonvascular ultrasound left upper extremity INDICATION: Soft tissue swelling around AV fistula. Evaluate for hematomaor fluid collection. COMPARISON: None FINDINGS: Left forearm was scanned in the region of the patient's AVfistula. Detailed assessment of the fistula and hemodynamics was notperformed. 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 These measure2.1 x 1.9 x 2.5 cm and 3.0 x 1.6 x 1.8 cm. These most likely representsmall hematomas probably related to traumatic fistula access. IMPRESSION: Left arm AV fistula (presumably radius cephalic) not completely assessed.However, with regard to soft tissue swelling, there are 2 small ovoidareas with low-level internal echoes, appearance most suggestive ofaccess-related hematomas. Ordered By: NASIR LEYVA Interpreted By: Ward Tee MD, 07/20/2024 10:15 AM us Nasir Leyva MD ULTRASOUND Final Result * (ABNORMAL) VITAMIN B-12 (07/18/2024 4:31 PM CDT) VITAMIN B12 S/P/B 1,243(H) 193 - 986 PG/ML 07/18/2024 5:49 PM CDT [facility] 07/18/2024 4:31 PM CDT us Hakeem Cox MD LABORATORY Final Result Performing Organization Address [facility]/ZIP Co de Phone Number [facility] [address] [place] [address], [place] [phone] * (ABNORMAL) FOLIC ACID SERUM (07/18/2024 4:31 PM CDT) FOLATE 37.0(H) 3.1 - 17.5 NG/ML 07/18/2024 5:49 PM CDT [facility] 07/18/2024 4:31 PM CDT us Hakeem Cox MD LABORATORY Final Result Performing Organization Address [facility] Co de Phone Number [facility] [address] [place] [address], [place] [phone] * (ABNORMAL) IRON SATURATION PANEL (FE,IBC,%SAT) (07/18/2024 5:31 AM CDT) IRON 51 50 - 170 MCG/DL 07/18/2024 3:26 PM CDT [facility] IRON BINDING CAPACITY 140(L) 250 - 450 MCG/DL 07/18/2024 3:26 PM CDT [facility] IRON SATURATION 36 % 3:26 PM CDT [facility] Comment:REFERENCE RANGE NOT ESTABLISHED 07/18/2024 5:31 AM CDT us Hakeem Cox MD LABORATORY Final Result Performing Organization Address [facility] Co de Phone Number [facility] [address] [place] [phone], [phone] * (ABNORMAL) KAPPA LAMBDA FREE RATIO (QST) (07/17/2024 9:30 PM CDT) KAPPA FREE LIGHT CHAIN 137.2(H) 3.3 - 19.4 mg/L 07/20/2024 9:02 AM CDT [facility] L[facility] LAMBDA FREE LIGHT CHAIN 125.1(H) 5.7 - 26.3 mg/L 07/20/2024 9:02 AM CDT [facility] KAPPA/LAMBDA FREE 1.10 0.26 - 1.65 07/20/2024 9:02 AM CDT [facility] Comment: Free kappa/lambda ratio in serum of normal individuals is 0.26-1.65. Excess production of free kappa or lambda chains can alter the ratio. Monoclonal free light chains are found in the serum of patients with multiple myeloma, Waldenstrom's macroglobulinemia, mu-heavy chain disease, primary amyloidosis, light chain deposition disease, monoclonal gammopathy of undetermined significance, and lymphoproliferative disorders. Measurement of free light chain concen- tration in serum is useful for diagnosis, prognosis, monitoring disease activity and following response to therapy of these disorders. Test Performed by Brown Gustafson, [employer] [facility], [address] [place] [address] Basim Delatorre M.D., Ph.D., Director of Laboratories , [place] [id number] 07/17/2024 9:30 PM CDT us Hakeem Cox MD LABORATORY Final Result [employer] , * LDH, LACTATE DEHYDROGENASE (07/17/2024 9:30 PM CDT) Only the most recent of2 resultswithin the time period is included. Pathologist [facility] LDH 128 84 - 246 UNITS/L 07/17/2024 11:01 PM CDT [facility] 07/17/2024 9:30 PM CDT us Hakeem Cox MD LABORATORY Final Result Performing Organization Address [facility] de Phone Number [facility] [address] [place] [address], [place] [phone] * IMMUNOFIXATION, SERUM (07/17/2024 9:30 PM CDT) Pathologist [facility] IMMUNOFIXATION SERUM SEE PATHOLOGIST'S INTERPRETATION 07/18/2024 3:32 PM CDT [facility] IMMUNOFIX (SERUM) INTERPRETATION THIS SERUM IMMUNOTYPING WAS INTERPRETED BY 07/19/2024 8:08 AM CDT [facility] Comment: DR BASIM THOMAS POORLY DEFINED AREA OF INCREASED IgG KAPPA REACTIVITY MAY REPRESENT A MONOCLONAL PROTEIN. SUGGEST REPEAT TESTING IN 6-12 MONTHS. 07/17/2024 9:30 PM CDT us Hakeem Cox MD LABORATORY Final Result Performing Organization Address [facility] de Phone Number [facility] [address] [place] [address], [place] [phone] * (ABNORMAL) BETA 2 MICROGLOBULIN, SERUM (QST) (07/17/2024 9:30 PM CDT) Pathologist [facility] BETA-2 MICROGLOBULIN 23.90(H) <=2.51 mg/L 07/23/2024 7:46 AM CDT [facility] Comment: Test Performed by Brown Gustafson, [facility], [address] [place] [address] Basim Delatorre M.D., Ph.D., Director of Laboratories , [place] [id number] 07/17/2024 9:30 PM CDT us Hakeem Cox MD LABORATORY Final Result [facility] [address] [place] [address], [place] [phone] * (ABNORMAL) PROTEIN, ELECTROPHORESIS (07/17/2024 9:30 PM CDT) TOTAL PROTEIN (ELECTROPHORESIS SERUM) 5.7(L) 6.0 - 8.3 G/DL 07/18/2024 3:21 PM CDT [facility] ALBUMIN ELECTROPHORESIS S/P/B 3.4 3.4 - 4.9 G/DL 07/18/2024 3:19 PM CDT [facility] [id number]-[id number] S/P/B 0.3 0.2 - 0.4 G/DL 07/18/2024 3:19 PM CDT [facility] [id number]-[id number] S/P/B 0.6 0.4 - 1.0 G/DL 07/18/2024 3:19 PM CDT [facility] BETA GLOBULIN S/P/B 0.6 0.5 - 1.2 G/DL 07/18/2024 3:19 PM CDT [facility] GAMMA GLOBULIN S/P/B 0.8 0.6 - 1.6 G/DL 07/18/2024 3:19 PM CDT [facility] ELECTROPHORESIS INTERPRETATION THIS SERUM PEP WAS INTERPRETED BY 07/19/2024 8:07 AM CDT [facility] Comment: DR BASIM THOMAS THE TOTAL SERUM PROTEIN IS DECREASED. ELECTROPHORESIS IDENTIFIES DECREASED ALBUMIN. POORLY DEFINED MICROBAND NOTED IN GAMMA REGION. IMMUNOTYPING IS ORDERED TO RULE OUT MONOCLONAL PROTEIN. 07/17/2024 9:30 PM CDT us Hakeem Cox MD LABORATORY Final Result [facility] [address] [place] [address], [phone] * (ABNORMAL) IMMUNOGLOBULINS IGA IGG IGM (07/17/2024 9:30 PM CDT) IGA 296.0 70.0 - 400.0 MG/DL 07/17/2024 11:01 PM CDT [facility] IGG 1,020.0 700.0 - 1,600.0 MG/DL 07/17/2024 11:01 PM CDT [facility] IGM 19.2(L) 40.0 - 230.0 MG/DL 07/17/2024 11:01 PM CDT [facility] 07/17/2024 9:30 PM CDT Hakeem Cox MD LABORATORY Final Result Performing Organization Address City/State/[facility] Co de Phone Number [facility] [address] [place] [address], [phone] * USV VAST TEAM MIDLINE INSERT >5YR (07/16/2024 6:18 PM CDT) Anatomical Region Laterality Modality NA Vascular Ultraso und 07/16/2024 5:51 PM CDT Narrative 07/16/2024 5:51 PM CDT This report does not contain a radiologist's interpretation. Please review associated procedure and/or operative report. Procedure Note Lindsay Wheeler MD - 07/16/2024 This report does not contain a radiologist's interpretation. Please review associated procedure and/or operative report. us Charles Doyle MD [facility] Final Result * POTASSIUM, SERUM (07/16/2024 4:51 PM CDT) POTASSIUM S/P/B 3.7 3.5 - 5.1 MMOL/L 07/16/2024 5:20 PM CDT [facility] 07/16/2024 4:51 PM CDT Ami Campo NP LABORATORY Final Result Performing Organization Address [facility] Co de Phone Number [facility] [address] [place] [address], [phone] * LACTIC ACID W REFLEX (SEPSIS) (07/16/2024 1:28 PM CDT) Only the most recent of3 resultswithin the time period is included. LACTIC ACID VENOUS 1.2 0.4 - 2.0 MMOL/L 07/16/2024 1:56 PM CDT [facility] 07/16/2024 1:28 PM CDT Ami Campo NP LABORATORY Final Result Performing Organization Address [facility] de Phone Number [facility] [address] [place] [address], [phone] * (ABNORMAL) BASIC METABOLIC PANEL (07/16/2024 1:28 PM CDT) SODIUM S/P/B 132(L) 136 - 145 MMOL/L 07/16/2024 2:00 PM CDT [facility] POTASSIUM S/P/B 3.6 3.5 - 5.1 MMOL/L 07/16/2024 2:00 PM CDT [facility] CHLORIDE S/P/B 95(L) 97 - 115 MMOL/L 07/16/2024 2:00 PM CDT [facility] CO2 25.1 21.0 - 32.0 MMOL/L 07/16/2024 2:00 PM CDT [facility] GLUCOSE 183(H) 74 - 106 MG/DL 07/16/2024 2:00 PM CDT [facility] BUN 41(H) 7 - 18 MG/DL 07/16/2024 2:00 PM CDT [facility] CREATININE S/P/B 9.54(H) 0.55 - 1.02 MG/DL 07/16/2024 2:00 PM T [facility] CALCIUM S/P/B 10.5(H) 8.5 - 10.1 MG/DL 07/16/2024 2:00 PM CDT [facility] ANION GAP 11.9(H) 2.0 - 10.0 MMOL/L 07/16/2024 2:00 PM T [facility] OSMOLALITY (CALC) 289 MOSM/KG 025 2:00 PM T [facility] Comment:REFERENCE RANGE NOT ESTABLISHED GFR ESTIMATE 4(L) >90 ML/MIN/1. 73 M2 07/16/2024 2:00 PM T [facility] GFR NOTES GFR REFERENCE S: 07/16/2024 2:00 PM T [facility] Comment: THE ESTIMATED GFR IS CALCULATED USING THE 2020 CKD-EPI EQUATION. THE FOLLOWING CATEGORIES FOR GRADING RENAL FUNCTION ARE RECOMMENDED BY THE INTERNATIONAL SOCIETY OF NEPHROLOGY (KDIGO 2012 CLINICAL PRACTICE GUIDELINE). G1,NORMAL OR HIGH: >89 ml/min/1.73 m2 G2,MILDLY DECREASED: 60-89 ml/min/1.73 m2 G3A,MILDLY TO MODERATELY DECREASED: 45-59 ml/min/1.73 m2 G3B,MODERATELY TO SEVERELY DECREASED: 30-44 ml/min/1.73 m2 G4,SEVERELY DECREASED: 15-29 ml/min/1.73 m2 G5,KIDNEY FAILURE: <15 ml/min/1.73 m2 07/16/2024 1:28 PM CDT us Ami Campo NP LABORATORY Final Result [facility] [address] [place] [address], [id number] * CT CHEST+ABD+PEL WO CON (07/16/2024 7:34 AM CDT) Anatomical Region Laterality Modality Chest, Abdomen, Pelvis Computed Tomography 07/16/2024 7:44 AM CDT Impressions 07/16/2024 8:18 AM CDT IMPRESSION: 1. No definite acute CT findings within the chest, abdomen, or pelvis. 2. Redemonstrated indeterminate lytic soft tissue focus involving the posterior aspect of the left fourth rib, similar in appearance to the prior CTA head and neck examination from 06/14/2024 with adjacent healed probable pathological fracture. Findings could be seen with a metastatic lesion in the setting of a relatively occult malignant process, however an aggressive primary osseous focus could be considered, in appropriate clinical setting. Nonemergent MRI chest with contrast and/or PET CT or percutaneous sampling could be beneficial for further characterization. 3. Marked renal atrophy. Numerous calcifications seen within the renal pelves and calyces of the kidneys. No hydronephrosis. 4. Small hiatal hernia. 5. Trace pleural effusions. Referred By: Interpreted By: Hank Samano MD, 07/16/2024 7:44 AM Narrative 07/16/2024 8:18 AM CDT [address] [place] [address] EXAMINATION: CT CHEST+ABD+PEL WO CON, 07/16/2024 7:44 AM TECHNIQUE: Computed tomographic images of the chest, abdomen, and pelvis were obtained without intravenous contrast. Additional coronal and sagittal reformatted images were generated. A dose lowering technique was used for this procedure, which may include, but is not limited to, dose reduction technique, automated exposure control, the use of iterative reconstruction, and ALARA (As Low As Reasonably Achievable) / Image Gently techniques. HISTORY: Sepsis, abdominal pain, dyspnea COMPARISON: CT abdomen and pelvis 03/13/2024, CTA head and neck 06/14/2024 FINDINGS: CHEST: Atelectasis in the lung bases. Trace pleural effusions. There is a 1 cm nodule involving the right lower lobe (best seen on series 3 image 55), unchanged when compared with the prior CT chest exam from 10/22/2021, therefore benign. There is a 0.9 cm subpleural nodule within the right lower lobe (best seen on series 3 image 47), unchanged from the prior exam from 2021. Calcified granulomas in the lung bases. Calcified lymph nodes in the right hilum and mediastinum. Heart size is normal. No pericardial abnormality. Coronary artery calcifications. Mild/moderate atherosclerotic calcification of the thoracic aorta. Small hiatal hernia. There is a 3.2 x 1.8 cm lytic soft tissue focus involving the posterior aspect of the left fourth rib (best seen on series 2 image 33), redemonstrated when compared with the prior CTA head and neck examination from 06/14/2024. Adjacent partially healed rib fracture. ABDOMEN: Liver is normal in size and contour. Multiple punctate hepatic calcified granulomas. Cholecystectomy. No bile duct dilation. No peripancreatic inflammatory change. The pancreas is not well evaluated without intravenous contrast. The spleen is normal in size. Multiple punctate splenic granulomas. No adrenal mass. No perinephric abnormality. Marked renal atrophy. Numerous calcifications seen within the renal pelves (best seen on series 4 image 56) and calyces of the kidneys (best seen on series 4 image 62). No hydronephrosis. Caliber of the abdominal aorta is normal. Moderate to marked atherosclerotic calcification of the abdominal aorta and its branches. No retroperitoneal adenopathy. PELVIS: The appendix is not well seen. No findings suggestive of acute appendicitis. No bowel dilation or wall thickening. No free fluid within the abdomen or pelvis. No free intraperitoneal air. There is a 1.8 cm left adnexal cyst. Pelvic phleboliths. Urinary bladder is relatively decompressed. No pelvic mass or adenopathy. No acute fracture. Procedure Note Hank Samano MD - 07/16/2024 [place] [id number] [facility] [place] [address] EXAMINATION: CT CHEST+ABD+PEL WO CON, 07/16/2024 7:44 AM TECHNIQUE: Computed tomographic images of the chest, abdomen, and pelviswere obtained without intravenous contrast. Additional coronal andsagittal reformatted images were generated. A dose lowering technique wasused for this procedure, which may include, but is not limited to, dosereduction technique, automated exposure control, the use of iterativereconstruction, and ALARA (As Low As Reasonably Achievable) / Image Gentlytechniques. HISTORY: Sepsis, abdominal pain, dyspnea COMPARISON: CT abdomen and pelvis 03/13/2024, CTA head and neck 06/14/2024 FINDINGS: CHEST: Atelectasis in the lung bases. Trace pleural effusions. There feliz 1 cm nodule involving the right lower lobe (best seen on series 3 image55), unchanged when compared with the prior CT chest exam from 10/22/2021,therefore benign. There is a 0.9 cm subpleural nodule within the rightlower lobe (best seen on series 3 image 47), unchanged from the prior examfrom 2021. Calcified granulomas in the lung bases. Calcified lymph nodesin the right hilum and mediastinum. Heart size is normal. No pericardialabnormality. Coronary artery calcifications. Mild/moderateatherosclerotic calcification of the thoracic aorta. Small hiatal hernia.There is a 3.2 x 1.8 cm lytic soft tissue focus involving the posterioraspect of the left fourth rib (best seen on series 2 image 33),redemonstrated when compared with the prior CTA head and neck examinationfrom 06/14/2024. Adjacent partially healed rib fracture. ABDOMEN: Liver is normal in size and contour. Multiple punctate hepaticcalcified granulomas. Cholecystectomy. No bile duct dilation. Noperipancreatic inflammatory change. The pancreas is not well evaluatedwithout intravenous contrast. The spleen is normal in size. Multiplepunctate splenic granulomas. No adrenal mass. No perinephricabnormality. Marked renal atrophy. Numerous calcifications seen withinthe renal pelves (best seen on series 4 image 56) and calyces of thekidneys (best seen on series 4 image 62). No hydronephrosis. Caliber ofthe abdominal aorta is normal. Moderate to marked atheroscleroticcalcification of the abdominal aorta and its branches. No retroperitonealadenopathy. PELVIS: The appendix is not well seen. No findings suggestive of acuteappendicitis. No bowel dilation or wall thickening. No free fluid withinthe abdomen or pelvis. No free intraperitoneal air. There is a 1.8 cmleft adnexal cyst. Pelvic phleboliths. Urinary bladder is relativelydecompressed. No pelvic mass or adenopathy. No acute fracture. IMPRESSION: 1. No definite acute CT findings within the chest, abdomen, or pelvis. 2. Redemonstrated indeterminate lytic soft tissue focus involving theposterior aspect of the left fourth rib, similar in appearance to theprior CTA head and neck examination from 06/14/2024 with adjacent healedprobable pathological fracture. Findings could be seen with a metastaticlesion in the setting of a relatively occult malignant process, however anaggressive primary osseous focus could be considered, in appropriateclinical setting. Nonemergent MRI chest with contrast and/or PET CT orpercutaneous sampling could be beneficial for further characterization. 3. Marked renal atrophy. Numerous calcifications seen within the renalpelves and calyces of the kidneys. No hydronephrosis. 4. Small hiatal hernia. 5. Trace pleural effusions. Referred By: Interpreted By: Hank Samano MD, 07/16/2024 7:44 AM us Jamie Schumacher MD CT Final Result * MAGNESIUM (07/16/2024 7:00 AM CDT) MAGNESIUM 2.1 1.8 - 2.4 MG/DL 07/16/2024 7:50 AM CDT [facility] 07/16/2024 7:00 AM CDT us Sai Faria DO LABORATORY Final Result [facility] [address] [place] [address], * Peripheral IV (07/16/2024 6:30 AM CDT) Narrative Jerardo Robbins CRNA - 07/16/2024 6:30 AM CDT Jerardo Robbins CRNA 07/16/2024 7:08 AM Peripheral IV Date/Time: 07/16/2024 6:30 AM Performed by: Jerardo Robbins CRNA Authorized by: Jerardo Robbins CRNA Patient Location: Floor Placed Outside of This Facility?: No Size (Guage): 20 G Orientation: Right Location: Basilic Insertion Attempts: 4 Ultrasound-guided Placement: Yes Ultrasound was used to identify the vessel. It was assessed and patent. Ultrasound was used to visualized vascular needle entry into the vessel and The selected vessel appeared anatomically normal and there were no apparent abnormal findings Patient Tolerance: Tolerated well Successful access of lumen on each attempt but unable to thread guidewire until 4th attempt. Limited choices as Pt has fistula in left arm. Pt has received PICC lines in the past. Latest PICC line placement occurred 06/18/2024 according to family Jerardo Robbins CRNA [place] ANESTHESIA Final Res ult * LIPID PANEL (06/14/2024 4:23 AM CDT) [facility] CHOLESTEROL 234 MG/DL 06/14/2024 5:08 AM CDT [facility] Comment:BORDERLINE HIGH: 200 -239 TRIGLYCERIDES 198 MG/DL 06/14/2024 5:08 AM CDT [facility] Comment:150-199 BORDERLINE H IGH HDL 60 >49 MG/DL 06/14/2024 5:08 AM CDT [facility] LDL (CALCULATED) 134 MG/DL 06/15/19 5:08 AM CDT [facility] Comment:130-159 BORDERLINE H IGH VLDL CALCULATION 40 MG/DL 06/15/19 5:08 AM CDT [facility] Comment:REFERENCE RANGE NOT ESTABLISHED CHOL/HDL RATIO 3.9 06/14/2024 5:08 AM CDT [facility] Comment:REFERENCE RANGE NOT ESTABLISHED LDL/HDL 2.2 06/14/2024 5:08 AM CDT [facility] Comment:REFERENCE RANGE NOT ESTABLISHED NON HDL CHOLESTEROL 174 MG/DL 06/14/2024 5:08 AM CDT [facility] Comment:REFERENCE RANGE NOT ESTABLISHED 06/14/2024 4:23 AM CDT Kellee Johnson MD LABORATORY Final Resul t [facility] [address] [place] [address], [id number] * (ABNORMAL) HEMOGLOBIN, GLYCATED (06/13/2024 8:25 AM CDT) HGB A1C 6.7(H) <5.7 % 06/13/2024 2:54 PM CDT [facility] ESTIMATED AVG GLUCOSE 146(H) 74 - 114 MG/DL 06/13/2024 2:54 PM CDT [facility] 06/13/2024 8:25 AM CDT Ami Campo NP LABORATORY Final Result [facility] [address] [place] [address], [id number] * (ABNORMAL) HEPATITIS PANEL,ACUTE (11/26/2019 12:09 PM CDT) HEPATITIS B SURFACE AG NON-REACT REFUGIO NON-REACT REFUGIO 11/27/2019 1:29 AM CDT [facility] Comment:HBsAg NOT DETECTED. HEP B CORE IGM NON-REACT REFUGIO NON-REACT REFUGIO 11/27/2019 1:29 AM CDT [facility] Comment: IgM ANTI HBc NOT DETECTED. DOES NOT EXCLUDE THE POSSIBILITY OF EXPOSURE TO OR INFECTION WITH HBV. NO RETEST REQUIRED. HIGH DOSES OF BIOTIN MAY INTERFERE WITH THIS TEST RESULT. CORRELATION TO CLINICAL HISTORY AND PRESENTATION RECOMMENDED. HAV IGM NON-REACT REFUGIO NON-REACT REFUGIO 11/27/2019 1:29 AM CDT [facility] Comment: IgM ANTI HAV NOT DETECTED. DOES NOT EXCLUDE THE POSSIBILITY OF EXPOSURE TO OR INFECTION WITH HAV. LEVELS OF IgM ANTI HAV MAY BE BELOW THE CUTOFF IN EARLY INFECTION. HEPATITIS C AB REACTIVE( A) NON-REACT REFUGIO 11/27/2019 1:29 AM CDT [facility] Comment: PRESUMPTIVE EVIDENCE OF ANTIBODIES TO HCV. CONSIDER ORDERING HCV RNA DETECTION AND QUANTIFICATION BY RT-PCR ANALYSIS ON A NEW SPECIMEN. 11/26/2019 12:0 9 PM CDT Marlyn Robni MD LABORATORY Final Result [facility] [address] [place] [address], [id number] from Last 3 Months or Most Recently Relevant to Health Maintenance Insurance MEDICAID MEDICARE * Guarantor: Tyson Smith Account Type Relation to Patient Date of Phone Billing Address Personal/Family Self 1960 [address] [place] [address] MEDICARE MEDICAID MEDICAID MEDICARE Advance Directives * Full Code (Latest Code Status on File) Date Activated Date Inactivated Comments 07/16/2024 1:25 PM 07/20/2024 6:43 PM * Full Code Date Activated Date Inactivated Comments 06/18/2024 4:21 PM 06/23/2024 3:33 PM * Full Code Date Activated Date Inactivated Comments 06/13/2024 10:26 AM 06/15/2024 4:11 PM * Full Code Date Activated Date Inactivated Comments 08/12/2023 8:00 PM 08/15/2023 8:20 PM * Full Code Date Activated Date Inactivated Comments 05/16/2023 11:40 AM 05/20/2023 4:01 PM Care Teams Home Service Advisor Relationship Specialty Start Date End Date Jabari Banda MD [address] [place] [address] PCP - General INTERNAL MEDICINE 12/02/15 Rylee Rocha MD [address] [place] [address] Consulting Physician CARDIOVASCULAR DISEASE 10/06/23 Sergio Ahn PA-C [address] [place] [address] PHYSICIAN DRAFTER ENGINEERING 11/10/23
--- OUTSIDE RECORDS SUMMARY | 2024-10-08 14:42 | XMS_ITS | Encounter Summary ---
Author Organization [facility] Address [address] [place] [address] Care Team Providers Care Media Services Specialist Name Role Phone Jabari Banda MD Primary Care Provider [phone] Klaus Ramos MD Unavailable [phone] Rylee Rocha MD Unavailable Sergio Ahn PA-C Unavailable [phone] Encounter Details Date Type Department Care Team (Latest Contact Info) Description 08/16/2023 [facility] Message Enc [facility] Cardiovascular Care Unit [address] [place] [address] Dev, [facility] Provider discharge follow up call Social History [...] shut off services in your home? No 08/12/2023 Humiliation, Afraid, Rape, and Kick questionnair e Answer Date Recorded Within the last year, have y ou been afraid of your partner or ex-partner? No 08/12/2023 Within the last year, have y ou been humiliated or emotionally abused in other ways by your partner or ex-partner? No Within the last year, have y ou been kicked, hit, slapped, or otherwise physically hurt by your partner or ex-partner? No 08/12/2023 Within the last year, have y ou been raped or forced to have any kind of sexual activity by your partner or ex-partner? No 08/12/2023 AUDIT-C Answer Date Recorded Frequency of Alcohol Consumption Never 01/31/2018 Average Number of Drinks Not on file 018 Frequency of Binge Drinking Not on file 01/21 Overall Financial Resource Strain (CARDIA) Answe r Date Recorded How hard is it for you to pa y for the very basics like food, housing, medical care, and heating? Somewhat hard 08/12/2023 Hunger Vital Sign Answer Date Recorded Within the past 12 months, y ou worried that your food would run out before you got the money to buy more. Sometimes true Within the past 12 months, t he food you bought just didn't last and you didn't have money to get more. Sometimes true PRAPARE - Transportation Answer Date Re corded In the past 12 months, has l ack of transportation kept you from medical appointments or from getting medications? No 07/23 In the past 12 months, has l ack of transportation kept you from meetings, work, or from getting things needed for daily living? No 08/12/2023 Housing Stability Vital Sign Answer Alex e [...] place to sleep or slept in a jail (including now)? No 05/16/2023 Housing Stability Vital Sign Answer Alex e Recorded In the last 12 months, was t here a time when you were not able to pay the mortgage or rent on time? No 08/12/2023 In the past 12 months, how m any times have you moved where you were living? 1 08/12/2023 At any time in the past 12 m [facility], were you homeless or living in a jail (including now)? No 08/12/2023 Comments No Sex and Gender Information Value Date Recorded Sex Assigned at Female 03/23/2024 12:06 PM CODE ENFORCEMENT SUPERVISOR Legal Sex Female 3:27 AM CDT Gender Identity Female 02/11/2023 3:50 PM CODE ENFORCEMENT SUPERVISOR Sexual Orientation Not on file documented as of this encounter Functional Status * Are you deaf or do you have serious difficulty hearing Answer Date of Assessment Author Status No 08/12/2023 7:54 PM CDT Gonzales Isabel R N Active * Are you blind or do you have serious difficulty seeing, even when wearing glasses? Answer Date of Assessment Author Status No 08/12/2023 7:54 PM CDT Gonzales Isabel R N Active * Do you have serious difficulty walking or climbing stairs? Answer Date of Assessment Author Status Yes 08/12/2023 7:54 PM CDT Gonzales Isabel R N Active * Do you have difficulty dressing or bathing? Answer Date of Assessment Author Status Yes 08/12/2023 7:54 PM CDT Gonzales Isabel R N Active * Because of a physical, mental, or emotional condition, do you have difficulty doing errands alone such as visiting a doctor's office or shopping? Answer Date of Assessment Author Status No 08/12/2023 7:54 PM CDT Gonzales Isabel R N Active documented as of this encounter Mental Status * Because of a physical, mental, or emotional condition, do you have serious difficulty concentrating, remembering, or making decisions? Answer Entry Date Author Status No 08/12/2023 7:54 PM CDT Gonzales Isabel R N Active documented in this encounter Plan of Treatment Upcoming Encounters Date Type Department Care Team (Late st Contact Info) Description 11/22/2024 3:00 PM CDT Office Visit Jason Cole-Paula loren [address] [place] [phone] Sergio Ahn PA-C [address] [place] [id number] documented as of this encounter Goals Goal [...] Rule Out 01/08/2024 01/08/2024 01/08/2024 10:52 PM CODE ENFORCEMENT SUPERVISOR COVID-19 Rule Out 06/18/2024 06/18/2024 06/18/2024 8:01 AM CDT Respiratory Rule Out 06/18/2024 06/18/2024 025 8:01 AM CDT documented as of this encounter Care Teams Media Services Specialist Relationship Specialty Start Date End Date Jabari Banda MD [address] [place] [address] PCP - General INTERNAL MEDICINE 12/02/15 Klaus Ramos MD [address] [place] [phone] Sperry Borematic Operator CARDIOVASCULAR DISEASE 07/26/18 10/05/23 Rylee Rocha MD [address] [place] [id number] Consulting Physician CARDIOVASCULAR DISEASE 10/06/23 Sergio Ahn PA-C [address] [place] [phone] PHYSICIAN COMPUTER RECYCLING WORKER 11/10/23 documented as of this encounter
[2024-10-08] MEDS: PIPERACILLIN/TAZOBACTAM SOD 2.25 GM in SODIUM CHLORIDE 0.9% IV 50 ML 100 ML IVPB (14:56)
--- NOTE | 2024-10-08 15:29 | PC.NURSE ---
Pt eating snack in bed in room. Waiting on transfer information.
[2024-10-08] MEDS: POTASSIUM CHLORIDE 20 MEQ ER TABLET PO (16:19)
--- NOTE | 2024-10-08 16:45 | PC.NURSE ---
Pt resting well in room. No needs at this time.
--- NOTE | 2024-10-08 18:29 | PC.NURSE ---
Pt has moved to the wheelchair in room for comfort. Pt denies needs at this time.
--- NOTE | 2024-10-08 19:03 | PC.NURSE ---
Report given to KYLE Padilla. Pt resting in room with no complaints.
--- NOTE | 2024-10-08 20:37 | ECG_ITS ---
Test Date: 2024-10-08 20:47:19 Measurements Intervals [place] Rate: 78 P: 18 WI: 211 QRS: 20 QRSD: 89 T: 110 QT: 395 QTc: 451 Interpretive Statements SINUS RHYTHM WITH FIRST DEGREE AV BLOCK ANTEROSEPTAL INFARCT, AGE INDETERMINATE BORDERLINE ST-T WAVE ABNORMALITY- ANTEROLAT/HIGH LAT LEADS BASELINE ARTIFACT- I, II, III, AVR, AVL, AVF, V4-V5 ABNORMAL ECG No previous ECG available for comparison Electronically Signed On 10-09-2024 06:17:52 CDT by Vincenzo Huddleston D.O.
--- NOTE | 2024-10-08 21:07 | PC.NURSE ---
ERP aware of pt's vital signs. No new orders.
--- NOTE | 2024-10-08 21:16 | PC.NURSE ---
Contact: Lamine Lobo
--- NOTE | 2024-10-10 13:25 | PC.NURSE ---
blood culture, no growth, preliminary
--- NOTE | 2024-10-12 12:57 | PC.NURSE ---
Preliminary blood culture report; no growth in 48 hours.
--- NOTE | 2024-10-17 13:20 | PC.NURSE ---
FINAL BLOOD CULTURE NO GROWTH IN 5 DAYS
--- NOTE | 2024-10-18 13:17 | PC.NURSE ---
final blood cultures x2 reviewed. no growth in 5 days. no change in plan of care.
== END 2024-10-08 21:36 | disposition short-term general hospital (02) ==
PROVIDERS: Emergency Provider Emergency Medicine; PCP Internal Medicine
DX: R91.8 Other nonspecific abnormal finding of lung field (principal); R79.89 Other specified abnormal findings of blood chemistry; J96.11 Chronic respiratory failure with hypoxia; E11.22 Type 2 diabetes mellitus with diabetic chronic kidney disease; N18.6 End stage renal disease; J18.9 Pneumonia, unspecified organism; I50.9 Heart failure, unspecified; J44.9 Chronic obstructive pulmonary disease, unspecified; Z99.81 Dependence on supplemental oxygen; Z79.899 Other long term (current) drug therapy; Z79.891 Long term (current) use of opiate analgesic; Z79.4 Long term (current) use of insulin; Z99.2 Dependence on renal dialysis; Z20.822 Contact with and (suspected) exposure to COVID-19
CPT/HCPCS: 36415; 71045; 80053; 83605; 83880; 84484; 85025; 87040; 87637; 93005; 96365; 99285; A9270; J2543

== ENCOUNTER 2024-10-08 22:42 | Inpatient (IN) | payer MEDICARE, MEDICAID, SELFPAY ==
--- NOTE | ~2024-10-08 | CT_ITS ---
EXAMINATION: CT diagnostic chest w con DATE: 10/10/2024 07:37 INDICATION: Abnormal chest x-ray TECHNIQUE: Computed tomography (CT) of the chest was performed without intravenous contrast. The dose-length product was 250.46 mGy-cm. COMPARISON: Chest x-ray 10/08/2024; CTA chest 05/17/2018 FINDINGS: Clips about the left side of the neck. There are few calcified granulomas in the liver and spleen. Heart is mildly enlarged. There are coronary artery calcifications. Thoracic aorta is not aneurysmal. Moderate amount of atherosclerotic disease in the thoracic aorta. Mildly enlarged 1.2 cm right low paratracheal lymph node. Mildly enlarged 1.2 cm subcarinal lymph node. Mildly enlarged 1.2 cm right hilar lymph node. Small left-sided pleural effusion. Moderate size consolidation in the left lower lobe with air bronchograms. Moderate size right-sided pleural effusion with a moderate size consolidation w ith bronchograms in the right lower lobe. There are a few small patchy, bandlike and ground glass opacities scattered throughout both lungs. Bones appear osteopenic. Multilevel degenerative change in the visualized spine. IMPRESSION: 1. Moderate sized right-sided pleural effusion. Small left-sided pleural effusion. 2. Moderate-sized consolidations in the lower lobes with air bronchograms. Differential includes atelectasis or pneumonia. Recommend follow-up to resolution. 3. There are a few small patchy, bandlike and groundglass opacities scattered throughout both lungs. Differential includes a combination of atelectasis or scarring with edema or pneumonia. 4. Mildly enlarged right hilar and mediastinal lymph nodes. The findings may be due to an inflammatory or infectious process. A malignant process is felt to be less likely but not excluded. A follow up chest CT in 3 months is recommended. Reviewed, dictated and finalized at location A. IMPRESSION: 1. Moderate sized right-sided pleural effusion. Small left-sided pleural effusi on. 2. Moderate-sized consolidations in the lower lobes with air bronchograms. Diff erential includes atelectasis or pneumonia. Recommend follow-up to resolution. 3. There are a few small patchy, bandlike and groundglass opacities scattered t hroughout both lungs. Differential includes a combination of atelectasis or sca rring with edema or pneumonia. 4. Mildly enlarged right hilar and mediastinal lymph nodes. The findings may be due to an inflammatory or infectious process. A malignant process is felt to b e less likely but not excluded. A follow up chest CT in 3 months is recommended .
--- NOTE | ~2024-10-08 | CT_ITS ---
CLINICAL INDICATION: Abdominal pain, nausea and vomiting COMPARISON: 06/17/2019. TECHNIQUE: Multiple contiguous axial images of the abdomen and pelvis were performed without the administration of intravenous contrast The dose-length product (DLP) was 612.46 mGy-cm. Automated exposure control and iterative reconstruction technique were employed. FINDINGS/OBSERVATIONS: Visualized lower thorax: Redemonstration of a moderate right-sided pleural effusion with adjacent compressive consolidation. A small left-sided pleural effusion is also noted with adjacent compressive atelectasis. The heart is enlarged, without pericardial effusion. Liver: Punctate calcifications identified within the hepatic parenchyma, suggesting prior granulomatous disease. The remainder of the liver demonstrates otherwise homogeneous attenuation and is enlarged measuring 20 cm in longitudinal dimension. Gallbladder and biliary system: The gallbladder is surgically absent. Pancreas: Limited evaluation of the pancreas secondary to the lack of intravenous contrast. Spleen: Punctate calcifications identified within the splenic parenchyma, suggesting prior granulomatous disease. The remainder of the spleen demonstrates homogeneous attenuation and is enlarged measuring 14.4 cm in longitudinal dimension. Kidneys: The bilateral kidneys are atrophic and calcified, consistent with patient's history. Adrenal glands: Unremarkable. Gastrointestinal tract: Retained gastric contents within the stomach, which is markedly distended with air-fluid levels. Appendix: Surgically absent. Vasculature: Calcified atherosclerotic disease within the abdominal aorta, without aneurysmal dilatation. Lymph nodes: Limited evaluation, secondary to the lack of intravenous contrast. Pelvic structures: The bladder is decompressed. The uterus is anteverted and anteflexed, with multiple calcifications, suggesting prior fibroid disease. Body wall and musculoskeletal: Small fat-containing umbilical hernia. Age-appropriate degenerative disease within the lower thoracic and lumbosacral spines. IMPRESSION: Retained gastric contents within the stomach, which is markedly distended with air-fluid levels. Hepatosplenomegaly. Moderate right and small left sided pleural effusions. Right sided consolidation. Reviewed, dictated and finalized at location A.
[2024-10-08 22:18] VITALS: BP 187/66; PULSE 78; RESP 22; TEMP 36.8; O2SAT 100; BMI 31.8
--- OUTSIDE RECORDS SUMMARY | 2024-10-08 22:45 | XMS_ITS | Clinical Summary ---
Author Organization [facility] Address [address] [place] [address] Care Team Providers Care Sales Marketing Director Name Role Phone Jabari Banda MD Primary Care Provider [phone] Christine Stevens RN Unavailable [phone] Mily Vance BUS DRIVER/MONITOR-SUPERVISOR PUBLIC HEALTH NURSING Unavailable + Darby Del Real RN Unavailable Unavailable Kaity Bowens Unavailable Unavailable Source Comments [facility],non-owned Affiliates and Associated Physician Practices is amultiple site organization consisting of ambulatory clinics and hospital sitesin [place], [place], [place] and [place]. This disclosure is being madepursuant to the Care Everywhere program and may not contain all information available regarding this patient. Last updated 17.[facility] [employer] Allergies No known active allergies Medications * [...] failure 016 Overview (08/22/2015): Added per clinical flight control specialist per dc summary Dr. Lee . 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 Gender Identity Not on file Sexual Orientation [...] 5:40 AM CDT) Hepatitis C Virus Quantitation [id number] IU/mL 05/07/2015 9:18 AM CDT [facility] Hepatitis C Virus Log 10 6.037 log10 IU/mL 05/07/2015 9:18 AM CDT [facility] ([facility]) Test Information Comment 05/07/2015 9:18 AM CDT [facility] Comment: The quantitative range [...] CDT 05/04/2015 5:46 AM CDT Narrative [facility] ([facility]) - 05/07/2015 9:18 AM CDT Performed at: [address] [place] [id number] Dermatology Sales Representative: Conrado Keane MD, Phone: [phone] Nunu Reynoso MD LAB - CHEMISTRY ORDERABLES Final Result [facility]) [address] [place] [address] from Last 3 Months or Most Recently [...] 2:49 PM 05/01/2015 3:17 PM Care Teams Sales Marketing Director Relationship Specialty Start Date End Date Jabari Banda MD [address] [place] [address] PCP - General Internal Medicine 05/01/15 Christine Stevens, RN Luggage Repairer 05/02/15 Mily Vance, BUS DRIVER/MONITOR-SUPERVISOR PUBLIC HEALTH NURSING [address] [facility] [address] [place] [phone] Registered Nurse - Cardiopulmonary Rehab 08/04/15 Darby Del Real RN Registered Nurse - Cardiopulmonary Rehab 08/04/15 Kaity Bowens Dialysis Liaison 08/14/15
--- OUTSIDE RECORDS SUMMARY | 2024-10-08 22:45 | XMS_ITS | Encounter Summary ---
Author Organization [facility] Address [address] [place] [address] Care Team Providers Care Printing Assistant Name Role Phone Jabari Banda MD Primary Care Provider [phone] Christine Stevens RN Unavailable [phone] Mily Vance RESEARCH NURSE-ELECTRONIC SEMICONDUCTOR PROCESSOR Unavailable + Darby Del Real RN Unavailable Unavailable Kaity Bowens Unavailable Unavailable Encounter Details Date Type Department Care Team (Late st Contact Info) Description 08/11/2015 Transitional Care [facility] DISEASE [facility]NAGEMENT [address] [place] [address] Darby Del Real RN Social History Tobacco Use Types Packs/Day Years Used Date Smoking Tobacco: Former Cigarettes Q uit: 05/02/2015 Alcohol Use Standard Drinks/Week Comments Not Asked 0 (1 standard drink = 0.6 oz pur e alcohol) Comments No Sex and Gender Information Value Date Recorded Sex Assigned at Not on file 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 Gender Identity Not on file Sexual Orientation [...] Entry Date Author No 08/08/2015 4:07 PM Arleht Millan RN documented in this encounter Plan of Treatment Not on file documented as of this encounter Visit Diagnoses Not on filedocumented in this encounter Care Teams Printing Assistant Relationship Specialty Start Date End Date Jabari Banda MD [address] [place] [address] PCP - General Internal Medicine 05/01/15 Christine Stevens RN Exceptional Student Education Aide 05/02/15 Mily Vance, RESEARCH NURSE-ELECTRONIC SEMICONDUCTOR PROCESSOR [address] [place] [address] Registered Nurse - Cardiopulmonary Rehab 08/04/15 Darby Del Real RN Registered Nurse - Cardiopulmonary Rehab 08/04/15 Kaity Bowens Dialysis Liaison 08/14/15 documented as of this encounter
[2024-10-09] VITALS (29 sets, daily range): BP systolic 169–201; BP diastolic 6–90; PULSE 69–83; RESP 16–21; TEMP 36.6–37; O2SAT 94–100
--- NOTE | 2024-10-09 00:47 | ADMIMU ---
This patient, Tyson Smith, was admitted to IMU status, and placed in IMU Room 205-02. Patient/family oriented to hospital policies and general routines including ID bracelet, bed and alarms, visiting hours, pain management, procedures, bathroom and other care routines, personal items, smoking policy, room service/diet, and visiting hours. Valuables list has been completed. Information on how to activate the Rapid Response Team has been discussed. Patient/Family are encouraged to report perceived risks to care and to ask questions if they do not understand what they are told or what they should do.
[2024-10-09] MEDS: HYDROcodone/acetaminophen (*CRX) 7.5-325 MG TABLET 1 TAB PO ×2 (01:42→15:46)
[2024-10-09 02:03] LABS: INR 1.2; Prothrombin Time 15.5 Seconds (11.1-14.7)
[2024-10-09 02:08] LABS: Troponin I 0.054 ng/mL (0.000-0.034)
[2024-10-09 05:23] LABS: Magnesium 1.9 mg/dL (1.6-2.3)
[2024-10-09] MEDS: LEVOTHYROXINE SODIUM 75 MCG TABLET PO (05:51)
[2024-10-09] MEDS: LEVOTHYROXINE SODIUM 100 MCG TABLET PO (05:51)
[2024-10-09 08:02] LABS: Hematocrit 29.0 % (37.0-47.0); Hemoglobin 9.5 g/dL (12.0-15.0); Mean Corpuscular HGB Conc 32.8 g/dl (32-36); Mean Corpuscular Hemoglobin 28.4 pg (26-34); Mean Corpuscular Volume 86.8 fl (80-100); Platelet Count Result 222 k/mm3 (150-375); Red Blood Count 3.34 M/mm3 (4.2-5.4); White Blood Count 8.2 K/mm3 (4.5-10.0)
[2024-10-09 08:10] LABS: Albumin Level 3.4 g/dL (3.5-5.1); Anion Gap 7 mmol/L (4-12); Blood Urea Nitrogen 10 mg/dL (7-17); Calcium 9.7 mg/dL (8.4-10.2); Carbon Dioxide 23 mmol/L (22-30); Chloride 98 mmol/L (98-107); Estimated CRCL calculation 13 ml/min; Estimated Glomerular Filt Rate 10; Glucose 135 mg/dL (65-110); Potassium 3.6 mmol/L (3.4-5.0); Sodium 128 mmol/L (137-145)
[2024-10-09] MEDS: APIXABAN 5 MG TABLET PO ×2 (09:04→20:35)
[2024-10-09] MEDS: CLOPIDOGREL BISULFATE 75 MG TABLET PO (09:04)
[2024-10-09] MEDS: dilTIAZem HCL CD 180 MG CAP.24HR PO (09:04)
[2024-10-09] MEDS: MONTELUKAST SODIUM 10 MG TABLET PO (09:04)
[2024-10-09] MEDS: PANTOPRAZOLE 40 MG TABLET PO ×2 (09:05→18:23)
[2024-10-09] MEDS: FUROSEMIDE INJ 40 MG/4 ML VIAL IV PUSH (09:05)
[2024-10-09] MEDS: LIDOCAINE/PRILOCAINE CREAM 2.5-2.5% TUBE 1 EACH TOPICAL (14:25)
--- NOTE | 2024-10-09 14:43 | PM.IMHP ---
H&P: HPI History of Present Illness Date/Time: 10/09/24 14:43 Chief Complaint: Shortness of breath Narrative: ER-HPI Narrative: Patient is a 64-year-old female with shortness of breath over the past day. She has gotten acutely short of breath today. No chest pain. She is on home oxygen at 2 L nasal cannula 24 hours a day. She has COPD and CHF. She is a dialysis patient and she gets dialysis Tuesday and got it done this morning. She was short of breath prior to dialysis. MD elicited complaint: shortness of breath Pertinent past history: COPD, congestive heart failure and other ( End-stage renal disease with dialysis Tuesday patient with shortness of breath to further evaluate patient had chest x-ray confluent opacities in the lower hemithoraces. Differential includes a combination of pleural fluid with adjacent atelectasis and/or consolidation. An underlying mass is possible. Consider a chest CT for further assessment. ER physician has ordered Ct of chest with contrast, of chest and patient has ESRD on HD and will need HD right after the CT of chest with contrast, will consult floor covering installer to arrange for the HD after the CT patient stats she has lead business analyst is [facility], will monitor, Review of Systems Review of Systems: All systems reviewed & are unremarkable except as noted in HPI and below PMFSH Past Medical History Medical History ESRD (end stage renal disease) on dialysis COPD (chronic obstructive pulmonary disease) Diabetes mellitus Surgical History Surgical History S/P cholecystectomy History of thyroid surgery History of x2 Hx of appendectomy Family History Family History Father Diabetes mellitus Hypertension Cerebrovascular accident Family history of arthritis Family history of malignant neoplasm Mother Family history of malignant neoplasm Family history of diabetes mellitus in first degree relative Social History Social History Smoking packs per day: 0.5 Smoking cigarettes per day: 10.0 Years smoked: 20 Smoking pack-years: 10.00 Smoking status: Former smoker Tobacco type: cigarettes Second hand tobacco smoke exposure: No Smoking end date: 08/20/24 Alcohol intake: former Substance use: never Substance use type: marijuana Other substance usage details: occasion Lack of Transportation: No Lack of Food: Never True Current Housing: I Have Housing Concerned About Future Housing: No Difficulty Paying Gas/Electric Bills: No Difficulty Paying for Meds: No Currently Unemployed: No Education: Associate Degree Difficulty w/ Childcare or Family Care: No Living arrangements: with family Spiritual care concerns: No Meds Home Medications and Allergies Home Medications ?Medication ?Instructions ?Recorded ?Confirmed ?Type atorvastatin 20 mg tablet 20 mg PO HS 06/17/19 10/08/24 History clopidogrel 75 mg tablet 75 mg PO DAILY 06/17/19 10/08/24 History hydrocodone 7.5 mg-acetaminophen 1 tablet PO QID PRN Pain 06/17/19 10/08/24 History 325 mg tablet insulin aspar prot-insulin aspart 65 unit subcut BID 06/17/19 10/08/24 History 100 unit/mL (70-30) subcutaneous pen (Novolog Mix 70-30FlexPen U-100) levothyroxine 175 mcg tablet 175 mcg PO DAILY 06/17/19 10/08/24 History omeprazole 40 mg capsule,delayed 40 mg PO DAILY 06/17/19 10/08/24 History release paroxetine HCl 40 mg tablet 40 mg PO DAILY 06/17/19 10/08/24 History sevelamer carbonate 800 mg tablet See Rx Instructions .Route .COMPLEX 06/17/19 10/08/24 History budesonide 160 mcg-glycopyr 9 2 inh inhalation BID 01/02/21 10/08/24 History mcg-formot 4.8 mcg/actuation HFA inhaler (Breztri Aerosphere) montelukast 10 mg tablet 10 mg PO DAILY 01/02/21 10/08/24 History vitamin B complex-vitamin C-folic 0.8 tablet PO DAILY 01/02/21 10/08/24 History acid 0.8 mg tablet (Deepa-Vikash) amlodipine 5 mg tablet 5 mg PO DAILY 10/08/24 10/08/24 History apixaban 5 mg tablet (Eliquis) 5 mg PO Q12H 10/08/24 10/08/24 History diltiazem HCl 180 mg 180 mg PO Q24H 10/08/24 10/08/24 History capsule,extended release 24 hr, controlled (DILT-XR) metoclopramide HCl 10 mg tablet 10 mg PO PRN 10/08/24 10/08/24 History ondansetron 4 mg disintegrating 4 mg PO PRN 10/08/24 10/08/24 History tablet umeclidinium 62.5 mcg-vilanterol 1 inh inhalation Q24H 10/08/24 10/08/24 History 25 mcg/actuation powdr for inhalation (Anoro Ellipta) Allergies Allergy/AdvReac Type Severity Reaction Status Date / Time No Known Allergies Allergy Unverified 10/08/24 22:18 Vital Signs Vital Signs - 24 hr 10/08/24 22:18 10/09/24 00:00 10/09/24 00:00 Temperature 36.8 C 36.9 C Pulse Rate 78 79 Respiratory Rate 22 H 20 Blood Pressure 187/66 H 177/71 H Pulse Oximetry 100 100 94 Oxygen Delivery Nasal Cannula Oxygen Flow Rate 2 10/09/24 00:00 10/09/24 02:00 10/09/24 04:00 Temperature Pulse Rate 78 80 77 Respiratory Rate Blood Pressure Pulse Oximetry Oxygen Delivery Oxygen Flow Rate 10/09/24 04:00 10/09/24 06:00 10/09/24 08:00 Temperature 36.8 C 36.7 C Pulse Rate 80 82 82 Respiratory Rate 16 20 Blood Pressure 188/66 H 179/6 H Pulse Oximetry 94 97 Oxygen Delivery Oxygen Flow Rate 10/09/24 08:00 10/09/24 08:00 10/09/24 12:00 Temperature 36.8 C Pulse Rate 80 79 Respiratory Rate 21 H Blood Pressure 178/65 H Pulse Oximetry 97 99 Oxygen Delivery Nasal Cannula Oxygen Flow Rate 2 10/09/24 12:00 10/09/24 12:00 Temperature Pulse Rate 83 Respiratory Rate Blood Pressure Pulse Oximetry 97 Oxygen Delivery Nasal Cannula Oxygen Flow Rate 2 Exam Narrative: Patient is comfortable, NAD HEENT: eyes are clear and none icteric LUNGS:CTA HEART: RR S1S2 ABD: BS+, Soft and nontender Lower extremities: no edema SKIN: nonjaundiced Neuro: grossly intact. H&P: Results Labs Labs: Short CBC 10/09/24 Range/Units 04:11 WBC 8.2 (4.5-10.0) K/mm3 Hgb 9.5 L (12.0-15.0) g/dL Hct 29.0 L (37.0-47.0) % Plt Count 222 (150-375) k/mm3 BMP 10/09/24 04:11 Sodium 128 L Potassium 3.6 Chloride 98 Carbon Dioxide 23 BUN 10 Creatinine 4.40 H Glucose 135 H Calcium 9.7 Cardiac Enzymes 10/09/24 Range/Units 01:14 Troponin I 0.054 H* (0.000-0.034) ng/mL Liver Function 10/09/24 Range/Units 04:11 Albumin 3.4 L (3.5-5.1) g/dL Assessment and Plan Assessment and plan (1) COPD (chronic obstructive pulmonary disease): Qualifiers: COPD type: COPD with acute exacerbation Qualified Code(s): J44.1 - Chronic obstructive pulmonary disease with (acute) exacerbation Code(s): J44.9 - Chronic obstructive pulmonary disease, unspecified Status: Acute (2) ESRD (end stage renal disease) on dialysis: Code(s): N18.6 - End stage renal disease; Z99.2 - Dependence on renal dialysis Status: Acute Assessment and Plan: patient will have scheduled HD (3) Diabetes mellitus: Code(s): E11.9 - Type 2 diabetes mellitus without complications Status: Acute Assessment and Plan: will resume home medications and monitor with sliding scale Plan patient with shortness of breath to further evaluate patient had chest x-ray confluent opacities in the lower hemithoraces. Differential includes a combination of pleural fluid with adjacent atelectasis and/or consolidation. An underlying mass is possible. Consider a chest CT for further assessment. ER physician has ordered CTA of chest and patient has ESRD on HD and will need HD right after the CTA, will consult floor covering installer to arrange for the HD after the CTA, patient stats she has lead business analyst is [facility], will monitor, Quality VTE Prophylaxis VTE prophylaxis: pharmacologic ordered Hospitalist MIPS Advance Care Plan I have confirmed that the patient's Advanced Care Plan is present, code status is documented, or surrogate decision maker is listed in patient medical record.: Yes Medication Reconciliation The patient is not eligible for med reconciliation; the patient is in a emergent medical situation where delaying treatment would jeopardize the patients health.: Yes
--- NOTE | 2024-10-09 16:40 | P.CONNP_ITS ---
Assessment and Plan Assessment and plan (1) End stage renal disease: Code(s): N18.6 - End stage renal disease Status: Chronic Assessment and Plan: * HD tomorrow * continue Tuesday/Tuesday/Tuesday dialysis schedule while hospitalized * follow trend of electrolytes, volume status and clearance * outpatient dialysis unit = [facility] * primary occupational therapist assistants = Dr. Mathias (2) Shortness of breath: Code(s): R06.02 - Shortness of breath Status: Acute Assessment and Plan: * suspect multifactorial etiology: * pulmonary edema * pleural effusions * pneumonia (?) * mass? * element of COPD * CHF(?) * reported history of VIJAY * other(?) * admission/ER chest x-ray noted * plan CT of chest for further evaluation * on baseline supplemental oxygen (2L by NC) * extra fluid removal with DUF session today * follow respiratory status (3) Hyponatremia: Code(s): E87.1 - Hypo-osmolality and hyponatremia Status: Acute Assessment and Plan: * as noted by admission labs * probably related due to kidney disease/ESRD, lung disease (COPD/VIJAY) and possibly increased free water intake * should correct to some degree with dialysis tomorrow * follow trend (4) Anemia: Code(s): D64.9 - Anemia, unspecified Status: Chronic Assessment and Plan: * due to ESRD * Epogen with HD * follow trend of H/H (5) Hypertension: Code(s): I10 - Essential (primary) hypertension Status: Chronic Assessment and Plan: * elevated on admission/currently * fluid removal with DUF/HD may help to some degree * resume home BP medications - not sure why on amlodipine AND diltiazem... * may need another agent... * follow trend of hemodynamics (6) Diabetes mellitus: Code(s): E11.9 - Type 2 diabetes mellitus without complications Status: Chronic Assessment and Plan: * follow accu-cheks * glycemic control per hospitalist I will continue to follow the patient with you while she remains hospitalized and make further recommendations as deemed necessary. Thank you for allowing me to participate in the care of this patient. L History of Present Illness Reason for Consult Consult date: 10/09/24 Reason for consult: end stage renal disease Chief Complaint Chief complaint: Pneumonia History of Present Illness Narrative: The patient is a 64-year-old female with a past medical history as outlined below who was transferred from [facility] to [facility] for further evaluation and treatment due to her shortness of breath. The patient states that she has been having issues and problems with shortness the best for the last 1 - 2 days if not longer. She actually presented to her outpatient dialysis unit yesterday with this same complaint. On the assumption that fluid overload was playing a role with regard to her shortness of breath, more aggressive ultrafiltration was done during that dialysis treatment yesterday with approximately 3 L fluid removal and she was actually below her dry weight at the conclusion of her dialysis treatment. upon completion of that dialysis treatment, she did symptomatically feel a bit better but still not back to baseline in terms of her breathing. She returned home hoping that she would improve with interventions that had been done but then her shortness of breath worsened and she subsequently presented to [facility] ER for further assessment. Workup and evaluation emergency room at [facility] ER demonstrated the patient to be hemodynamically stable if not hypertensive and with stable oxygen saturations on her baseline oxygen 2 L by nasal cannula. She continued to voice complaints of shortness of breath upon presentation But denied any chest pain, palpitations, dizziness, lightheadedness, vomiting, or diarrhea but did admit to some mild nausea although she reports this is a chronic issue for her. Subsequent testing demonstrated CBC with a mildly elevated white blood cell count, relative anemia, and normal platelets with a chemistry panel consistent with her known history of end-stage renal disease without any critical electrolyte abnormalities. Her chest x-ray demonstrated confluent opacities in the lower dextre thoraces with a concern for pleural fluid with adjacent atelectasis and/or consolidation with an underlying mass being a possibility. Apparently, a CT scan of the chest with contrast was planned but the concern was that she would need dialysis following the contrast exposure and [facility] does not have dialysis capabilities. She was subsequently transferred to [facility] for ongoing treatment of her acute medical issues as well as the necessity for renal replacement therapy/dialysis. Since her transfer to [facility], a CT scan of the chest has not yet been ordered. However, she still remains short of breath despite all interventions to date. Renal consultation was requested due to her end-stage renal disease. The patient normally dialyzes on a Tuesday, Tuesday, Tuesday dialysis schedule at [facility] of Dr. Mathias. As mentioned above already, she did receive her dialysis treatment yesterday and more aggressive fluid removal was achieved with that treatment but this apparently did not seem to improve her shortness of breath. From my discussion with the patient, she has been on dialysis since 2016 and does have issues with chronic respiratory failure as she is on oxygen by nasal cannula of 2 L chronically and does follow with outpatient pulmonology in [facility]. She apparently has known COPD as well as obstructive sleep apnea Along with cardiac disease in the form of coronary artery disease as well as congestive heart failure. Currently, at the time my evaluation, she is undergoing dry ultrafiltration in effort to further remove fluid to see if it will optimize her respiratory status (seen on DUF at 4:30pm). Review of Systems 2 Review of Systems: As per HPI. [facility] Past Medical History Medical History (Updated 10/10/24 @ 16:52 by Fernando Rich MD) CHF (congestive heart failure) Anxiety and depression History of CVA (cerebrovascular accident) VIJAY (obstructive sleep apnea) CAD (coronary artery disease) Hypothyroidism Other chronic pain Incomplete tear of left rotator cuff Chronic left shoulder pain Anemia Hypertension Hyperlipidemia ESRD (end stage renal disease) on dialysis COPD (chronic obstructive pulmonary disease) Diabetes mellitus Surgical History Surgical History S/P cholecystectomy History of thyroid surgery History of x2 Hx of appendectomy Family History Family History Father Diabetes mellitus Hypertension Cerebrovascular accident Family history of arthritis Family history of malignant neoplasm Mother Family history of malignant neoplasm Family history of diabetes mellitus in first degree relative Social History Social History Smoking packs per day: 0.5 Smoking cigarettes per day: 10.0 Years smoked: 20 Smoking pack-years: 10.00 Smoking status: Former smoker Tobacco type: cigarettes Second hand tobacco smoke exposure: No Smoking end date: 08/20/24 Alcohol intake: former Substance use: never Substance use type: marijuana Other substance usage details: occasion Lack of Transportation: No Lack of Food: Never True Current Housing: I Have Housing Concerned About Future Housing: No Difficulty Paying Gas/Electric Bills: No Difficulty Paying for Meds: No Currently Unemployed: No Education: Associate Degree Difficulty w/ Childcare or Family Care: No Living arrangements: with family Spiritual care concerns: No Meds Home Medications and Allergies Home Medications ?Medication ?Instructions ?Recorded ?Confirmed ?Type atorvastatin 20 mg tablet 20 mg PO HS 06/17/19 5 History clopidogrel 75 mg tablet 75 mg PO DAILY 06/17/1909/21 History hydrocodone 7.5 mg-acetaminophen 1 tablet PO QID PRN P ain 06/17/19 10/08/24 History 325 mg tablet insulin aspar prot-insulin aspart 65 unit subcut BID 0 06/17/19 10/08/24 History 100 unit/mL (70-30) subcutaneous pen (Novolog Mix 70-30FlexPen U-100) levothyroxine 175 mcg tablet 175 mcg PO DAILY 06/17/19 10/08/24 History omeprazole 40 mg capsule,delayed 40 mg PO DAILY 10/08/24 History release paroxetine HCl 40 mg tablet 40 mg PO DAILY 06/17/19 History sevelamer carbonate 800 mg tablet See Rx Instructions .Route .COMPLEX 06/17/19 10/08/24 History budesonide 160 mcg-glycopyr 9 2 inh inhalation BID 02/1010/08/24 History mcg-formot 4.8 mcg/actuation HFA inhaler (Breztri Aerosphere) montelukast 10 mg tablet 10 mg PO DAILY 01/02/2109/21 History vitamin B complex-vitamin C-folic 0.8 tablet PO DAILY 01/02/21 10/08/24 History acid 0.8 mg tablet (Deepa-Vikash) amlodipine 5 mg tablet 5 mg PO DAILY 10/08/2410/08 History apixaban 5 mg tablet (Eliquis) 5 mg PO Q12H 10/08/24 0 10/08/24 History diltiazem HCl 180 mg 180 mg PO Q24H 10/08/2409/21 History capsule,extended release 24 hr, controlled (DILT-XR) metoclopramide HCl 10 mg tablet 10 mg PO PRN 10/08/24 10/08/24 History ondansetron 4 mg disintegrating 4 mg PO PRN 10/08/24 0 10/08/24 History tablet umeclidinium 62.5 mcg-vilanterol 1 inh inhalation Q24H 10/08/24 10/08/24 History 25 mcg/actuation powdr for inhalation (Anoro Ellipta) Allergies Allergy/AdvReac Type Severity Reaction Status Date / Time No Known Allergies Allergy Unverified 10/08/24 22:18 Vital Signs Vital Signs Temp Pulse Resp BP Pulse Ox O2 Del Method O2 Flow Rate 10/09/24 16:30 74 188/74 H 10/09/24 16:15 69 189/83 H 10/09/24 16:00 74 190/82 H 10/09/24 15:45 72 185/84 H 10/09/24 15:30 74 191/87 H 10/09/24 15:15 74 176/83 H 10/09/24 14:54 75 186/84 H 10/09/24 14:42 98.4 F 81 18 174/81 H 10/09/24 14:42 2 10/09/24 14:00 70 10/09/24 12:00 83 10/09/24 12:00 97 Nasal Cannula 2 10/09/24 12:00 98.3 F 79 21 H 178/65 H 99 10/09/24 08:00 80 10/09/24 08:00 97 Nasal Cannula 2 10/09/24 08:00 98.1 F 82 20 179/6 H 97 10/09/24 06:00 82 10/09/24 04:00 98.3 F 80 16 188/66 H 94 10/09/24 04:00 77 10/09/24 02:00 80 10/09/24 00:00 78 10/09/24 00:00 94 Nasal Cannula 2 10/09/24 00:00 98.4 F 79 20 177/71 H 100 10/08/24 22:18 98.3 F 78 22 H 187/66 H 100 Exam 2 Narrative: GENERAL APPEARANCE: well developed well nourished female in no acute distress HEENT: normocephalic, atraumatic, normal conjunctiva and sclera, nares patient NECK: no lymphadenopathy or thyromegaly MOUTH: normal lips, teeth, and gums CARDIOVASCULAR: RRR, normal S1 and S2, no rub RESPIRATORY: coarse breath sounds; decreased at bases ABDOMEN: soft, nontender, nondistended, positive bowel sounds present EXTREMITIES: no evidence of cyanosis, clubbing, trace edema NEUROLOGICAL: alert and oriented x 3; CN II - XII intact bilaterally; no focal deficits noted Results Lab Results 10/10/24 03:40 10/10/24 03:40 Lab results: Most recent lab results Calcium 9.7 mg/dL (8.4-10.2) 10/09/24 04:11 Phosphorus 3.6 mg/dL (2.5-4.5) 10/09/24 04:11 Magnesium 1.9 mg/dL (1.6-2.3) 10/09/24 04:11
[2024-10-09 19:46] LABS: Hepatitis B Surface Antigen Negative (Negative)
[2024-10-09 20:04] LABS: Hepatitis B Surface Anti Res Negative
[2024-10-09] MEDS: ATORVASTATIN 20 MG TABLET PO (20:35)
[2024-10-10] VITALS (30 sets, daily range): BP systolic 136–189; BP diastolic 47–74; PULSE 65–82; RESP 16–20; TEMP 36.2–37.1; O2SAT 94–100
[2024-10-10 03:55] LABS: Hematocrit 31.2 % (37.0-47.0); Hemoglobin 10.1 g/dL (12.0-15.0); Immature Granulocyte Percent A 0.4 % (0-0.5); Lymphocytes Absolute Auto 1.16 K/mm3 (0.9-3.2); Mean Corpuscular HGB Conc 32.4 g/dl (32-36); Mean Corpuscular Hemoglobin 28.2 pg (26-34); Mean Corpuscular Volume 87.2 fl (80-100); Nucleated Red Blood Cells Absolute Auto 0.000 K/mm3 (0.0-0.012); Nucleated Red Blood Cells Perc 0.0 % (0.0-0.2); Platelet Count Result 223 k/mm3 (150-375); Red Blood Count 3.58 M/mm3 (4.2-5.4); White Blood Count 7.3 K/mm3 (4.5-10.0)
[2024-10-10 04:11] LABS: Albumin Level 3.6 g/dL (3.5-5.1); Anion Gap 9 mmol/L (4-12); Blood Urea Nitrogen 14 mg/dL (7-17); Calcium 10.2 mg/dL (8.4-10.2); Carbon Dioxide 25 mmol/L (22-30); Chloride 95 mmol/L (98-107); Estimated CRCL calculation 9 ml/min; Estimated Glomerular Filt Rate 7; Glucose 168 mg/dL (65-110); Magnesium 2.0 mg/dL (1.6-2.3); Potassium 3.8 mmol/L (3.4-5.0); Sodium 129 mmol/L (137-145)
[2024-10-10] MEDS: LEVOTHYROXINE SODIUM 100 MCG TABLET PO (06:19)
[2024-10-10] MEDS: LEVOTHYROXINE SODIUM 75 MCG TABLET PO (06:19)
[2024-10-10] MEDS: FLUTICASONE/UMECLIDIN/VILANTER 100-62.5-25 MCG ELLIPTA 1 PUFF INHALATION (08:08)
[2024-10-10] MEDS: CLOPIDOGREL BISULFATE 75 MG TABLET PO (08:16)
[2024-10-10] MEDS: PANTOPRAZOLE 40 MG TABLET PO ×2 (08:16→16:36)
[2024-10-10] MEDS: APIXABAN 5 MG TABLET PO ×2 (08:16→20:45)
[2024-10-10] MEDS: MONTELUKAST SODIUM 10 MG TABLET PO (08:16)
[2024-10-10] MEDS: dilTIAZem HCL CD 180 MG CAP.24HR PO (08:16)
[2024-10-10] MEDS: FUROSEMIDE INJ 40 MG/4 ML VIAL IV PUSH (08:17)
[2024-10-10] MEDS: HYDROcodone/acetaminophen (*CRX) 7.5-325 MG TABLET 1 TAB PO ×4 (08:21→20:46)
--- NOTE | 2024-10-10 09:11 | P.PNNP_ITS ---
Progress Note: A&P Assessment and Plan (1) End stage renal disease: Code(s): N18.6 - End stage renal disease Status: Chronic Assessment and Plan: * HD today * continue Tuesday/Tuesday/Tuesday dialysis schedule while hospitalized * follow trend of electrolytes, volume status and clearance * outpatient dialysis unit = [facility] * primary sales project engineer = Dr. Mathias (2) Shortness of breath: Code(s): R06.02 - Shortness of breath Status: Acute Assessment and Plan: * suspect multifactorial etiology: * pulmonary edema * pleural effusions * pneumonia (?) * mass? * element of COPD * reported history of VIJAY * other(?) * admission/ER chest x-ray noted * s/p CT of chest earlier today for further evaluation - follow-up on report * on supplemental oxygen (on chronic 2L by NC at baseline) * fluid removal with DUF (on 10/09) and HD today * follow respiratory status (3) Hyponatremia: Code(s): E87.1 - Hypo-osmolality and hyponatremia Status: Acute Assessment and Plan: * as noted on admission * probably related due to kidney disease/ESRD, lung disease (COPD/VIJAY) and possibly water intake * should correct to some degree with dialysis today * follow trend (4) Anemia: Code(s): D64.9 - Anemia, unspecified Status: Chronic Assessment and Plan: * due to ESRD * Epogen with HD * follow trend of H/H (5) Hypertension: Code(s): I10 - Essential (primary) hypertension Status: Chronic Assessment and Plan: * elevated on admission/currently * fluid removal with DUF/HD may help to some degree * resumed on home BP medications - not sure why on amlodipine AND diltiazem... * may need another agent... * follow trend of hemodynamics (6) Diabetes mellitus: Code(s): E11.9 - Type 2 diabetes mellitus without complications Status: Chronic Assessment and Plan: * follow accu-cheks * glycemic control per hospitalist Will continue to follow. L Subjective Date/time seen: 10/10/24 09:11 Interval history: Follow-up for end stage renal disease on hemodialysis. Tolerated session of dry ultrafiltration yesterday afternoon and tolerating dialysis treatment at the time of my visit (seen on HD at 9:00am); CT scan of chest done earlier this morning (results pending); she states her respiratory status/breathing seems a little better in comparison to admission; no other acute issues/events overnight or earlier this morning. Exam 2 Narrative: General: WD/WN female in NAD Heart: normal S1 and S2; no rub Lungs: coarse breath sounds; decreased at bases Abdomen: soft, nontender, nondistended, positive bowel sounds Extremities: no cyanosis or clubbing; trace edema Skin: warm and dry Objective Data Vital Signs Vital Signs: Vital Signs Temp Pulse Resp BP Pulse Ox O2 Del Method O2 Flow Rate 10/10/24 09:00 69 180/74 H 10/10/24 08:49 69 183/74 H 10/10/24 08:32 2 10/10/24 08:32 97.7 F 70 18 169/65 H 10/10/24 08:11 98 Nasal Cannula 2 10/10/24 08:00 73 10/10/24 08:00 98 Nasal Cannula 1.5 10/10/24 08:00 98.8 F 71 20 160/52 H 100 10/10/24 06:24 82 10/10/24 04:00 98.3 F 79 18 189/68 H 94 10/10/24 04:00 71 10/10/24 03:42 98 Nasal Cannula 1.5 10/10/24 02:09 74 10/10/24 00:00 76 10/10/24 00:00 98 Nasal Cannula 1.5 10/10/24 00:00 98.6 F 75 16 147/60 H 98 10/09/24 22:00 73 10/09/24 20:15 98 Nasal Cannula 2 10/09/24 20:00 69 10/09/24 20:00 98 Nasal Cannula 1.5 10/09/24 20:00 98 F 70 18 169/69 H 100 10/09/24 18:51 187/64 H 10/09/24 18:32 97.8 F 71 20 201/75 H 100 10/09/24 18:04 98.4 F 74 18 175/81 H 10/09/24 18:00 74 10/09/24 18:00 96 Nasal Cannula 2 10/09/24 17:54 73 189/81 H 10/09/24 17:45 71 189/88 H 10/09/24 17:30 76 182/82 H 10/09/24 17:15 72 188/90 H 10/09/24 17:00 72 178/85 H 10/09/24 16:48 71 10/09/24 16:45 71 189/84 H 10/09/24 16:30 74 188/74 H 10/09/24 16:15 69 189/83 H 10/09/24 16:00 74 190/82 H Intake/Output Intake/Output: Intake & Output 10/07/24 10/08/24 10/09/24 10/10/24 23:59 23:59 23:59 23:59 Intake Total 1120 520 Output Total 2500 2500 Balance -1380 -1980 Meds/Results Medications: Active Medications Generic Name Dose Route Start Last Admin Trade Name Freq PRN Reason Stop Dose Admin Acetaminophen 650 mg 10/09/24 00:23 Acetaminophen 325 Mg Tablet PO Q4H PRN Mild Pain (1-3) or Fever Hydrocodone Bitart/Acetaminophen 1 tab 10/09/24 00:14 10/10/24 12:53 Hydrocodone/Acetaminophen (*Crx) 7.5-325 Mg Tablet PO 1 tab QID PRN Administration Pain 7-10 Al Hydrox/Mg Hydrox/Simethicone 30 ml 10/09/24 00:23 Mag Hydrox/Al Hydrox/Simeth 30 Ml Udc PO QID PRN Dyspepsia Amlodipine Besylate 5 mg 10/09/24 09:00 10/10/24 08:16 Amlodipine Besylate 5 Mg Tablet PO 5 mg DAILY DEMETRIO Administration Apixaban 5 mg 10/09/24 09:00 10/10/24 08:16 Apixaban 5 Mg Tablet PO 5 mg Q12HR DEMETRIO Administration Atorvastatin Calcium 20 mg 10/09/24 21:00 10/09/24 20:35 Atorvastatin 20 Mg Tablet PO 20 mg HS DEMETRIO Administration Clopidogrel Bisulfate 75 mg 10/09/24 09:00 10/10/24 08:16 Clopidogrel Bisulfate 75 Mg Tablet PO 75 mg DAILY DEMETRIO Administration Dextrose 12.5 gm 10/09/24 00:21 Dextrose 50% 25 Gm/50 Ml Syringe IV PUSH PRN PRN Hypoglycemia Protocol Diltiazem HCl 180 mg 10/09/24 09:00 10/10/24 08:16 Diltiazem Hcl Cd 180 Mg Cap.24hr PO 180 mg DAILY DEMETRIO Administration Epoetin Jos-epbx 10,000 units 10/10/24 18:23 10/10/24 10:09 Epoetin Jos-Epbx 10,000 Units/Ml Vial IV PUSH 10/10/24 18:24 10,000 units ONCE ONE Administration Fluticasone/Umeclidinium/Vilanterol 1 puff 10/09/24 08:00 10/10/24 08:08 Fluticasone/Umeclidin/Vilanter 100-62.5-25 Mcg Ellipta INHALATION 1 puff DAILYRT DEMETRIO Administration Glucagon 1 mg 10/09/24 00:21 Glucagon For Inj 1 Mg Vial IM PRN PRN Hypoglycemia Protocol Glucose 15 gm 10/09/24 00:21 Glucose Oral Gel 15 Gm Of Glucse In 37.5 Gm Tube PO PRN PRN Hypoglycemia Protocol Dextrose 1,000 mls @ 100 mls/hr 10/09/24 00:21 Dextrose 5% 1,000 Ml IVPB PRN PRN Hypoglycemia Protocol Albumin Human 50 mls @ 999 mls/hr 10/09/24 13:50 Albutein IVPB 11/08/24 13:49 Q10M PRN HYPOTENSION Insulin Aspart 65 units 10/09/24 08:00 10/10/24 11:15 Insuln Asp Prt/Insulin Aspart 100 Units/MlNovolog Mix(*Bkc) SUB-Q Not Given BIDWM [facility] Insulin Aspart 3 - 6 units 10/09/24 08:00 10/10/24 14:17 Insulin Aspart (*Bkc) 100 Units/Ml SUB-Q Not Given TIDWM [facility] Protocol Levothyroxine Sodium 100 mcg 10/09/24 06:30 10/10/24 06:19 Levothyroxine Sodium 100 Mcg Tablet PO 100 mcg DAILY@0630 DEMETRIO Administration Levothyroxine Sodium 75 mcg 10/09/24 06:30 10/10/24 06:19 Levothyroxine Sodium 75 Mcg Tablet PO 75 mcg DAILY@0630 DEMETRIO Administration Lidocaine 2 patch 10/10/24 15:00 10/10/24 15:18 Lidocaine 5% Patch TRANSDERM 2 patch DAILY DEMETRIO Administration Lidocaine/Prilocaine 1 each 10/09/24 13:55 10/09/24 14:25 Lidocaine/Prilocaine Cream 2.5-2.5% Tube TOPICAL 1 each WITH DIALYSIS PRN Administration for dialysis Protocol Magnesium Hydroxide 30 ml 10/09/24 00:23 Magnesium Hydroxide Susp 30 Ml Udc PO DAILY PRN Constipation Metoclopramide HCl 10 mg 10/09/24 00:14 Metoclopramide Hcl 10 Mg Tablet PO Q6H PRN nausea Montelukast Sodium 10 mg 10/09/24 09:00 10/10/24 08:16 Montelukast Sodium 10 Mg Tablet PO 10 mg DAILY DEMETRIO Administration Pantoprazole Sodium 40 mg 10/09/24 09:00 10/10/24 08:16 Pantoprazole 40 Mg Tablet PO 40 mg BID DEMETRIO Administration Paroxetine HCl 40 mg 10/09/24 09:00 10/10/24 08:16 Paroxetine 20 Mg Tablet PO 40 mg DAILY DEMETRIO Administration Radiology Results: Labs Labs: Laboratory Tests 10/10/24 03:40 10/10/24 03:40 Calcium 10.2 Phosphorus 4.9 H Magnesium 2.0 Albumin 3.6
[2024-10-10 09:29] LABS: MRSA (PCR) NOT DETECTED (NOT DETECTE)
[2024-10-10] MEDS: EPOETIN ALFA-EPBX 10,000 UNITS/ML VIAL 10000 UNITS IV PUSH (10:09)
[2024-10-10] MEDS: DOXYCYCLINE IV 100 MG in SODIUM CHLORIDE 0.9% IV 100 ML IVPB ×2 (12:56→22:15)
--- NOTE | 2024-10-10 15:06 | P.PNIM_ITS ---
Progress Note: A&P Assessment and Plan (1) COPD (chronic obstructive pulmonary disease): Qualifiers: COPD type: COPD with acute exacerbation Qualified Code(s): J44.1 - Chronic obstructive pulmonary disease with (acute) exacerbation Code(s): J44.9 - Chronic obstructive pulmonary disease, unspecified Status: Acute (2) ESRD (end stage renal disease) on dialysis: Code(s): N18.6 - End stage renal disease; Z99.2 - Dependence on renal dialysis Status: Acute Assessment and Plan: patient will have scheduled HD (3) Diabetes mellitus: Code(s): E11.9 - Type 2 diabetes mellitus without complications Status: Acute Assessment and Plan: will resume home medications and monitor with sliding scale Plan patient with shortness of breath to further evaluate patient had chest x-ray confluent opacities in the lower hemithoraces. Differential includes a combination of pleural fluid with adjacent atelectasis and/or consolidation. An underlying mass is possible. Consider a chest CT for further assessment. ER physician has ordered CT of chest and patient has ESRD on HD and will need HD right after the CT, will consult stonemason to arrange for the HD after the CTA, patient stats she has heel scorer is Jesus BRENDA, will monitor, today patient did have CT scan of the chest, which is concerning for pneumonia, will start patient on ceftriaxone and doxycycline, the scan also showed Mildly enlarged right hilar and mediastinal lymph nodes. The findings may be due to an inflammatory or infectious process. A malignant process is felt to be less likely but not excluded. A follow up chest CT in 3 months is recommended. I did discuss with patient that she will need repeat CT of the chest in three months. will monitor. Subjective Date/time seen: 10/10/24 15:06 Interval history: patient with shortness of breath to further evaluate patient had chest x-ray confluent opacities in the lower hemithoraces. Differential includes a combination of pleural fluid with adjacent atelectasis and/or consolidation. An underlying mass is possible. Consider a chest CT for further assessment. ER physician has ordered CT of chest and patient has ESRD on HD and will need HD right after the CT, will consult stonemason to arrange for the HD after the CTA, patient stats she has heel scorer is Jesus GUTIERREZ, will monitor, today patient did have CT scan of the chest, which is concerning for pneumonia, will start patient on ceftriaxone and doxycycline, the scan also showed Mildly enlarged right hilar and mediastinal lymph nodes. The findings may be due to an inflammatory or infectious process. A malignant process is felt to be less likely but not excluded. A follow up chest CT in 3 months is recommended. I did discuss with patient that she will need repeat CT of the chest in three months. will monitor. Review of Systems Review of Systems: All systems reviewed & are unremarkable except as noted in HPI and below Exam Narrative: Patient is comfortable, NAD HEENT: eyes are clear and none icteric LUNGS:CTA HEART: RR S1S2 ABD: BS+, Soft and nontender Lower extremities: no edema SKIN: nonjaundiced Neuro: grossly intact. Objective Data Vital Signs Vital Signs: Vital Signs - 24 hr 10/09/24 15:15 10/09/24 15:30 10/09/24 15:45 Temperature Pulse Rate 74 74 72 Respiratory Rate Blood Pressure 176/83 H 191/87 H 185/84 H Pulse Oximetry Oxygen Delivery Oxygen Flow Rate 10/09/24 16:00 10/09/24 16:15 10/09/24 16:30 Temperature Pulse Rate 74 69 74 Respiratory Rate Blood Pressure 190/82 H 189/83 H 188/74 H Pulse Oximetry Oxygen Delivery Oxygen Flow Rate 10/09/24 16:45 10/09/24 16:48 10/09/24 17:00 Temperature Pulse Rate 71 71 72 Respiratory Rate Blood Pressure 189/84 H 178/85 H Pulse Oximetry Oxygen Delivery Oxygen Flow Rate 10/09/24 17:15 10/09/24 17:30 10/09/24 17:45 Temperature Pulse Rate 72 76 71 Respiratory Rate Blood Pressure 188/90 H 182/82 H 189/88 H Pulse Oximetry Oxygen Delivery Oxygen Flow Rate 10/09/24 17:54 10/09/24 18:00 10/09/24 18:00 Temperature Pulse Rate 73 74 Respiratory Rate Blood Pressure 189/81 H Pulse Oximetry 96 Oxygen Delivery Nasal Cannula Oxygen Flow Rate 2 10/09/24 18:04 10/09/24 18:32 10/09/24 18:51 Temperature 36.9 C 36.6 C Pulse Rate 74 71 Respiratory Rate 18 20 Blood Pressure 175/81 H 201/75 H 187/64 H Pulse Oximetry 100 Oxygen Delivery Oxygen Flow Rate 10/09/24 20:00 10/09/24 20:00 10/09/24 20:00 Temperature 36.6 C Pulse Rate 70 69 Respiratory Rate 18 Blood Pressure 169/69 H Pulse Oximetry 100 98 Oxygen Delivery Nasal Cannula Oxygen Flow Rate 1.5 10/09/24 20:15 10/09/24 22:00 10/10/24 00:00 Temperature 37.0 C Pulse Rate 73 75 Respiratory Rate 16 Blood Pressure 147/60 H Pulse Oximetry 98 98 Oxygen Delivery Nasal Cannula Oxygen Flow Rate 2 10/10/24 00:00 10/10/24 00:00 10/10/24 02:09 Temperature Pulse Rate 76 74 Respiratory Rate Blood Pressure Pulse Oximetry 98 Oxygen Delivery Nasal Cannula Oxygen Flow Rate 1.5 10/10/24 03:42 10/10/24 04:00 10/10/24 04:00 Temperature 36.8 C Pulse Rate 71 79 Respiratory Rate 18 Blood Pressure 189/68 H Pulse Oximetry 98 94 Oxygen Delivery Nasal Cannula Oxygen Flow Rate 1.5 10/10/24 06:24 10/10/24 08:00 10/10/24 08:00 Temperature 37.1 C Pulse Rate 82 71 Respiratory Rate 20 Blood Pressure 160/52 H Pulse Oximetry 100 98 Oxygen Delivery Nasal Cannula Oxygen Flow Rate 1.5 10/10/24 08:00 10/10/24 08:11 10/10/24 08:32 Temperature 36.5 C Pulse Rate 73 70 Respiratory Rate 18 Blood Pressure 169/65 H Pulse Oximetry 98 Oxygen Delivery Nasal Cannula Oxygen Flow Rate 2 10/10/24 08:32 10/10/24 08:49 10/10/24 09:00 Temperature Pulse Rate 69 69 Respiratory Rate Blood Pressure 183/74 H 180/74 H Pulse Oximetry Oxygen Delivery Oxygen Flow Rate 2 10/10/24 09:15 10/10/24 09:30 10/10/24 09:45 Temperature Pulse Rate 69 72 72 Respiratory Rate Blood Pressure 163/71 H 167/73 H 163/66 H Pulse Oximetry Oxygen Delivery Oxygen Flow Rate 10/10/24 10:00 10/10/24 10:00 10/10/24 10:15 Temperature Pulse Rate 71 72 72 Respiratory Rate Blood Pressure 158/66 H 153/63 H Pulse Oximetry Oxygen Delivery Oxygen Flow Rate 10/10/24 10:30 10/10/24 10:45 10/10/24 11:00 Temperature Pulse Rate 73 74 72 Respiratory Rate Blood Pressure 146/66 H 140/60 148/66 H Pulse Oximetry Oxygen Delivery Oxygen Flow Rate 10/10/24 11:15 10/10/24 11:30 10/10/24 11:45 Temperature Pulse Rate 73 71 76 Respiratory Rate Blood Pressure 150/64 H 138/66 136/71 Pulse Oximetry Oxygen Delivery Oxygen Flow Rate 10/10/24 12:00 10/10/24 12:15 10/10/24 12:19 Temperature Pulse Rate 71 69 70 Respiratory Rate Blood Pressure 148/69 H 146/67 H 140/65 Pulse Oximetry Oxygen Delivery Oxygen Flow Rate 10/10/24 12:32 10/10/24 12:57 Temperature 36.5 C 36.5 C Pulse Rate 70 70 Respiratory Rate 18 20 Blood Pressure 153/63 H 141/47 H Pulse Oximetry 99 99 Oxygen Delivery Oxygen Flow Rate Intake/Output Intake/Output: Intake & Output 10/07/24 10/08/24 10/09/24 10/10/24 23:59 23:59 23:59 23:59 Intake Total 1120 520 Output Total 2500 2500 Balance -1380 -1980 Meds/Results Medications: Active Medications Generic Name Dose Route Start Last Admin Trade Name Freq PRN Reason Stop Dose Admin Acetaminophen 650 mg 10/09/24 00:23 Acetaminophen 325 Mg Tablet PO Q4H PRN Mild Pain (1-3) or Fever Hydrocodone Bitart/Acetaminophen 1 tab 10/09/24 00:14 10/10/24 12:53 Hydrocodone/Acetaminophen (*Crx) 7.5-325 Mg Tablet PO 1 tab QID PRN Administration Pain 7-10 Al Hydrox/Mg Hydrox/Simethicone 30 ml 10/09/24 00:23 Mag Hydrox/Al Hydrox/Simeth 30 Ml Udc PO QID PRN Dyspepsia Amlodipine Besylate 5 mg 10/09/24 09:00 10/10/24 08:16 Amlodipine Besylate 5 Mg Tablet PO 5 mg DAILY DEMETRIO Administration Apixaban 5 mg 10/09/24 09:00 10/10/24 08:16 Apixaban 5 Mg Tablet PO 5 mg Q12HR DEMETRIO Administration Atorvastatin Calcium 20 mg 10/09/24 21:00 10/09/24 20:35 Atorvastatin 20 Mg Tablet PO 20 mg HS DEMETRIO Administration Clopidogrel Bisulfate 75 mg 10/09/24 09:00 10/10/24 08:16 Clopidogrel Bisulfate 75 Mg Tablet PO 75 mg DAILY DEMETRIO Administration Dextrose 12.5 gm 10/09/24 00:21 Dextrose 50% 25 Gm/50 Ml Syringe IV PUSH PRN PRN Hypoglycemia Protocol Diltiazem HCl 180 mg 10/09/24 09:00 10/10/24 08:16 Diltiazem Hcl Cd 180 Mg Cap.24hr PO 180 mg DAILY DEMETRIO Administration Epoetin Jos-epbx 10,000 units 10/10/24 18:23 10/10/24 10:09 Epoetin Jos-Epbx 10,000 Units/Ml Vial IV PUSH 10/10/24 18:24 10,000 units ONCE ONE Administration Fluticasone/Umeclidinium/Vilanterol 1 puff 10/09/24 08:00 10/10/24 08:08 Fluticasone/Umeclidin/Vilanter 100-62.5-25 Mcg Ellipta INHALATION 1 puff DAILYRT DEMETRIO Administration Furosemide 40 mg 10/09/24 09:00 10/10/24 08:17 Furosemide Inj 40 Mg/4 Ml Vial IV PUSH 40 mg DAILY DEMETRIO Administration Glucagon 1 mg 10/09/24 00:21 Glucagon For Inj 1 Mg Vial IM PRN PRN Hypoglycemia Protocol Glucose 15 gm 10/09/24 00:21 Glucose Oral Gel 15 Gm Of Glucse In 37.5 Gm Tube PO PRN PRN Hypoglycemia Protocol Dextrose 1,000 mls @ 100 mls/hr 10/09/24 00:21 Dextrose 5% 1,000 Ml IVPB PRN PRN Hypoglycemia Protocol Albumin Human 50 mls @ 999 mls/hr 10/09/24 13:50 Albutein IVPB 11/08/24 13:49 Q10M PRN HYPOTENSION Ceftriaxone Sodium 1 gm/ 50 mls @ 100 mls/hr 10/10/24 12:00 Sodium Chloride IVPB Q24H DEMETRIO Doxycycline Hyclate 100 mg/ 100 mls @ 100 mls/hr 10/10/24 12:30 10/10/24 12:56 Sodium Chloride IVPB 100 mls/hr Q12HR DEMETRIO Administration Insulin Aspart 65 units 10/09/24 08:00 10/10/24 11:15 Insuln Asp Prt/Insulin Aspart 100 Units/MlNovolog Mix(*Bkc) SUB-Q Not Given BIDWM [facility] Insulin Aspart 3 - 6 units 10/09/24 08:00 10/10/24 14:17 Insulin Aspart (*Bkc) 100 Units/Ml SUB-Q Not Given TIDWM [facility] Protocol Levothyroxine Sodium 100 mcg 10/09/24 06:30 10/10/24 06:19 Levothyroxine Sodium 100 Mcg Tablet PO 100 mcg DAILY@0630 DEMETRIO Administration Levothyroxine Sodium 75 mcg 10/09/24 06:30 10/10/24 06:19 Levothyroxine Sodium 75 Mcg Tablet PO 75 mcg DAILY@0630 DEMETRIO Administration Lidocaine 2 patch 10/10/24 15:00 Lidocaine 5% Patch TRANSDERM DAILY [facility] Lidocaine/Prilocaine 1 each 10/09/24 13:55 10/09/24 14:25 Lidocaine/Prilocaine Cream 2.5-2.5% Tube TOPICAL 1 each WITH DIALYSIS PRN Administration for dialysis Protocol Magnesium Hydroxide 30 ml 10/09/24 00:23 Magnesium Hydroxide Susp 30 Ml Udc PO DAILY PRN Constipation Metoclopramide HCl 10 mg 10/09/24 00:14 Metoclopramide Hcl 10 Mg Tablet PO Q6H PRN nausea Montelukast Sodium 10 mg 10/09/24 09:00 10/10/24 08:16 Montelukast Sodium 10 Mg Tablet PO 10 mg DAILY DEMETRIO Administration Pantoprazole Sodium 40 mg 10/09/24 09:00 10/10/24 08:16 Pantoprazole 40 Mg Tablet PO 40 mg BID DEMETRIO Administration Paroxetine HCl 40 mg 10/09/24 09:00 10/10/24 08:16 Paroxetine 20 Mg Tablet PO 40 mg DAILY DEMETRIO Administration Radiology Results: ITS Impressions Chest CT 10/10/24 09:11 IMPRESSION: 1. Moderate sized right-sided pleural effusion. Small left-sided pleural effusion. 2. Moderate-sized consolidations in the lower lobes with air bronchograms. Differential includes atelectasis or pneumonia. Recommend follow-up to resolution. 3. There are a few small patchy, bandlike and groundglass opacities scattered throughout both lungs. Differential includes a combination of atelectasis or scarring with edema or pneumonia. 4. Mildly enlarged right hilar and mediastinal lymph nodes. The findings may be due to an inflammatory or infectious process. A malignant process is felt to be less likely but not excluded. A follow up chest CT in 3 months is recommended. Labs Labs: Laboratory Results - last 24 hr 10/09/24 10/09/24 10/09/24 04:11 18:19 20:14 WBC RBC Hgb Hct MCV MCH MCHC RDW Plt Count MPV Immature Gran % (Auto) Neut % (Auto) Lymph % (Auto) Bath % (Auto) Eos % (Auto) Baso % (Auto) Lymph # (Auto) Bath # (Auto) Eos # (Auto) Baso # (Auto) Abs Immat Gran (auto) Absolute Neuts (auto) Absolute Nucleated RBC Nucleated RBC % Sodium Potassium Chloride Carbon Dioxide Anion Gap BUN Creatinine Estim Creat Clear Calc Estimated GFR Glucose POC Capillary Glucose 160 H 191 H Calcium Phosphorus Magnesium Albumin Nasal MRSA (PCR) Hep Bs Antigen Negative Hep Bs Antibody Negative 10/10/24 10/10/24 10/10/24 03:40 07:18 08:12 WBC 7.3 RBC 3.58 L Hgb 10.1 L Hct 31.2 L MCV 87.2 MCH 28.2 MCHC 32.4 RDW 13.7 Plt Count 223 MPV 9.3 Immature Gran % (Auto) 0.4 Neut % (Auto) 66.8 Lymph % (Auto) 15.9 L Bath % (Auto) 9.9 H Eos % (Auto) 5.8 H Baso % (Auto) 1.2 Lymph # (Auto) 1.16 Bath # (Auto) 0.7 H Eos # (Auto) 0.4 H Baso # (Auto) 0.1 Abs Immat Gran (auto) 0.03 Absolute Neuts (auto) 4.9 Absolute Nucleated RBC 0.000 Nucleated RBC % 0.0 Sodium 129 L Potassium 3.8 Chloride 95 L Carbon Dioxide 25 Anion Gap 9 BUN 14 Creatinine 6.13 H Estim Creat Clear Calc 9 Estimated GFR 7 L Glucose 168 H POC Capillary Glucose 173 H Calcium 10.2 Phosphorus 4.9 H Magnesium 2.0 Albumin 3.6 Nasal MRSA (PCR) Not detected Hep Bs Antigen Hep Bs Antibody 10/10/24 10/10/24 11:42 12:49 WBC RBC Hgb Hct MCV MCH MCHC RDW Plt Count MPV Immature Gran % (Auto) Neut % (Auto) Lymph % (Auto) Bath % (Auto) Eos % (Auto) Baso % (Auto) Lymph # (Auto) Bath # (Auto) Eos # (Auto) Baso # (Auto) Abs Immat Gran (auto) Absolute Neuts (auto) Absolute Nucleated RBC Nucleated RBC % Sodium Potassium Chloride Carbon Dioxide Anion Gap BUN Creatinine Estim Creat Clear Calc Estimated GFR Glucose POC Capillary Glucose 127 H 139 H Calcium Phosphorus Magnesium Albumin Nasal MRSA (PCR) Hep Bs Antigen Hep Bs Antibody Quality VTE Prophylaxis VTE prophylaxis: pharmacologic ordered
[2024-10-10] MEDS: LIDOCAINE 5% PATCH 2 PATCH TRANSDERM (15:18)
[2024-10-10] MEDS: cefTRIAXone 1 GM in SODIUM CHLORIDE 0.9% IV 50 ML 100 ML IVPB (15:21)
[2024-10-10] MEDS: ATORVASTATIN 20 MG TABLET PO (20:44)
[2024-10-11] VITALS: BP 154/50; PULSE 63; RESP 20; TEMP 36.4; O2SAT 99
[2024-10-11 04:00] VITALS: BP 165/61; PULSE 65; RESP 20; TEMP 36.4; O2SAT 99
[2024-10-11 05:00] LABS: Hematocrit 35.5 % (37.0-47.0); Hemoglobin 11.3 g/dL (12.0-15.0); Mean Corpuscular HGB Conc 31.8 g/dl (32-36); Mean Corpuscular Hemoglobin 28.5 pg (26-34); Mean Corpuscular Volume 89.6 fl (80-100); Platelet Count Result 262 k/mm3 (150-375); Red Blood Count 3.96 M/mm3 (4.2-5.4); White Blood Count 7.4 K/mm3 (4.5-10.0)
[2024-10-11 05:30] LABS: Albumin Level 3.7 g/dL (3.5-5.1); Anion Gap 8 mmol/L (4-12); Blood Urea Nitrogen 9 mg/dL (7-17); Calcium 9.7 mg/dL (8.4-10.2); Carbon Dioxide 28 mmol/L (22-30); Chloride 94 mmol/L (98-107); Estimated CRCL calculation 14 ml/min; Estimated Glomerular Filt Rate 11; Glucose 154 mg/dL (65-110); Magnesium 1.9 mg/dL (1.6-2.3); Potassium 3.5 mmol/L (3.4-5.0); Sodium 130 mmol/L (137-145)
[2024-10-11] MEDS: LEVOTHYROXINE SODIUM 75 MCG TABLET PO (06:48)
[2024-10-11] MEDS: LEVOTHYROXINE SODIUM 100 MCG TABLET PO (06:48)
[2024-10-11] MEDS: dilTIAZem HCL CD 180 MG CAP.24HR PO (10:39)
[2024-10-11] MEDS: PANTOPRAZOLE 40 MG TABLET PO ×2 (10:39→17:26)
[2024-10-11] MEDS: CLOPIDOGREL BISULFATE 75 MG TABLET PO (10:39)
[2024-10-11 10:40] VITALS: O2SAT 99
[2024-10-11] MEDS: APIXABAN 5 MG TABLET PO ×2 (10:40→21:11)
[2024-10-11] MEDS: DOXYCYCLINE IV 100 MG in SODIUM CHLORIDE 0.9% IV 100 ML IVPB ×2 (10:40→21:11)
[2024-10-11] MEDS: MONTELUKAST SODIUM 10 MG TABLET PO (10:40)
[2024-10-11] MEDS: METOCLOPRAMIDE HCL 10 MG TABLET PO (11:08)
--- NOTE | 2024-10-11 11:38 | PM.IMPN ---
Progress Note: A&P Assessment and Plan (1) COPD (chronic obstructive pulmonary disease): Qualifiers: COPD type: COPD with acute exacerbation Qualified Code(s): J44.1 - Chronic obstructive pulmonary disease with (acute) exacerbation Code(s): J44.9 - Chronic obstructive pulmonary disease, unspecified Status: Acute (2) ESRD (end stage renal disease) on dialysis: Code(s): N18.6 - End stage renal disease; Z99.2 - Dependence on renal dialysis Status: Acute Assessment and Plan: patient will have scheduled HD (3) Diabetes mellitus: Code(s): E11.9 - Type 2 diabetes mellitus without complications Status: Chronic Assessment and Plan: will resume home medications and monitor with sliding scale Plan patient with shortness of breath to further evaluate patient had chest x-ray confluent opacities in the lower hemithoraces. Differential includes a combination of pleural fluid with adjacent atelectasis and/or consolidation. An underlying mass is possible. Consider a chest CT for further assessment. ER physician has ordered CT of chest and patient has ESRD on HD and will need HD right after the CT, will consult steel fabricator to arrange for the HD after the CTA, patient stats she has c.o.d. clerk is [facility], will monitor, patient did have CT scan of the chest, which is concerning for pneumonia, will start patient on ceftriaxone and doxycycline, the scan also showed Mildly enlarged right hilar and mediastinal lymph nodes. The findings may be due to an inflammatory or infectious process. A malignant process is felt to be less likely but not excluded. A follow up chest CT in 3 months is recommended. I did discuss with patient that she will need repeat CT of the chest in three months. will monitor. patient stats feeling better, denies any cough or shortness of breath, does complaints of nausea but no abdomen pain, last BM was two days ago, its normal for the patient, will continue antibiotic and repeat chest x-ray tomorrow after dialysis, and further recommendation to follow. patient boyfriend is present. Subjective Date/time seen: 10/11/24 11:38 Interval history: patient with shortness of breath to further evaluate patient had chest x-ray confluent opacities in the lower hemithoraces. Differential includes a combination of pleural fluid with adjacent atelectasis and/or consolidation. An underlying mass is possible. Consider a chest CT for further assessment. ER physician has ordered CT of chest and patient has ESRD on HD and will need HD right after the CT, will consult steel fabricator to arrange for the HD after the CTA, patient stats she has c.o.d. clerk is [place], will monitor, patient did have CT scan of the chest, which is concerning for pneumonia, will start patient on ceftriaxone and doxycycline, the scan also showed Mildly enlarged right hilar and mediastinal lymph nodes. The findings may be due to an inflammatory or infectious process. A malignant process is felt to be less likely but not excluded. A follow up chest CT in 3 months is recommended. I did discuss with patient that she will need repeat CT of the chest in three months. will monitor. patient stats feeling better, denies any cough or shortness of breath, does complaints of nausea but no abdomen pain, last BM was two days ago, its normal for the patient, will continue antibiotic and repeat chest x-ray tomorrow after dialysis, and further recommendation to follow. patient boyfriend is present. Review of Systems Review of Systems: All systems reviewed & are unremarkable except as noted in HPI and below Exam Narrative: Patient is comfortable, NAD HEENT: eyes are clear and none icteric LUNGS:CTA HEART: RR S1S2 ABD: BS+, Soft and nontender Lower extremities: no edema SKIN: nonjaundiced Neuro: grossly intact. Objective Data Vital Signs Vital Signs: Vital Signs - 24 hr 10/10/24 11:45 10/10/24 12:00 10/10/24 12:00 Temperature Pulse Rate 76 71 Respiratory Rate Blood Pressure 136/71 148/69 H Pulse Oximetry 97 Oxygen Delivery Nasal Cannula Oxygen Flow Rate 1.5 10/10/24 12:00 10/10/24 12:15 10/10/24 12:19 Temperature Pulse Rate 70 69 70 Respiratory Rate Blood Pressure 146/67 H 140/65 Pulse Oximetry Oxygen Delivery Oxygen Flow Rate 10/10/24 12:32 10/10/24 12:57 10/10/24 14:00 Temperature 36.5 C 36.5 C Pulse Rate 70 70 80 Respiratory Rate 18 20 Blood Pressure 153/63 H 141/47 H Pulse Oximetry 99 99 Oxygen Delivery Oxygen Flow Rate 10/10/24 15:43 10/10/24 20:00 10/10/24 20:00 Temperature 36.6 C 36.2 C L Pulse Rate 73 65 Respiratory Rate 18 20 Blood Pressure 138/57 L 152/60 H Pulse Oximetry 100 100 99 Oxygen Delivery Nasal Cannula Oxygen Flow Rate 2 10/10/24 20:45 10/11/24 00:00 10/11/24 04:00 Temperature 36.4 C 36.4 C L Pulse Rate 65 63 65 Respiratory Rate 20 20 Blood Pressure 154/50 H 165/61 H Pulse Oximetry 100 99 99 Oxygen Delivery Nasal Cannula Oxygen Flow Rate 1 Intake/Output Intake/Output: Intake & Output 10/08/24 10/09/24 10/10/24 10/11/24 23:59 23:59 23:59 23:59 Intake Total 1120 1260 200 Output Total 2500 2500 0 Balance -1380 -1240 200 Meds/Results Medications: Active Medications Generic Name Dose Route Start Last Admin Trade Name Freq PRN Reason Stop Dose Admin Acetaminophen 650 mg 10/09/24 00:23 Acetaminophen 325 Mg Tablet PO Q4H PRN Mild Pain (1-3) or Fever Hydrocodone Bitart/Acetaminophen 1 tab 10/09/24 00:14 10/10/24 20:46 Hydrocodone/Acetaminophen (*Crx) 7.5-325 Mg Tablet PO 1 tab QID PRN Administration Pain 7-10 Al Hydrox/Mg Hydrox/Simethicone 30 ml 10/09/24 00:23 Mag Hydrox/Al Hydrox/Simeth 30 Ml Udc PO QID PRN Dyspepsia Amlodipine Besylate 5 mg 10/09/24 09:00 10/11/24 10:39 Amlodipine Besylate 5 Mg Tablet PO 5 mg DAILY DEMETRIO Administration Apixaban 5 mg 10/09/24 09:00 10/11/24 10:40 Apixaban 5 Mg Tablet PO 5 mg Q12HR DEMETRIO Administration Atorvastatin Calcium 20 mg 10/09/24 21:00 10/10/24 20:44 Atorvastatin 20 Mg Tablet PO 20 mg HS DEMETRIO Administration Clopidogrel Bisulfate 75 mg 10/09/24 09:00 10/11/24 10:39 Clopidogrel Bisulfate 75 Mg Tablet PO 75 mg DAILY DEMETRIO Administration Dextrose 12.5 gm 10/09/24 00:21 Dextrose 50% 25 Gm/50 Ml Syringe IV PUSH PRN PRN Hypoglycemia Protocol Diltiazem HCl 180 mg 10/09/24 09:00 10/11/24 10:39 Diltiazem Hcl Cd 180 Mg Cap.24hr PO 180 mg DAILY DEMETRIO Administration Fluticasone/Umeclidinium/Vilanterol 1 puff 10/09/24 08:00 10/11/24 10:11 Fluticasone/Umeclidin/Vilanter 100-62.5-25 Mcg Ellipta IN[facility]ATION [facility] Glucagon 1 mg 10/09/24 00:21 Glucagon For Inj 1 Mg Vial IM PRN PRN Hypoglycemia Protocol Glucose 15 gm 10/09/24 00:21 Glucose Oral Gel 15 Gm Of Glucse In 37.5 Gm Tube PO PRN PRN Hypoglycemia Protocol Dextrose 1,000 mls @ 100 mls/hr 10/09/24 00:21 Dextrose 5% 1,000 Ml IVPB PRN PRN Hypoglycemia Protocol Albumin Human 50 mls @ 999 mls/hr 10/09/24 13:50 Albutein IVPB 11/08/24 13:49 Q10M PRN HYPOTENSION Ceftriaxone Sodium 1 gm/ 50 mls @ 100 mls/hr 10/10/24 12:00 10/10/24 15:21 Sodium Chloride IVPB 100 mls/hr Q24H DEMETRIO Administration Doxycycline Hyclate 100 mg/ 100 mls @ 100 mls/hr 10/10/24 12:30 10/11/24 10:40 Sodium Chloride IVPB 100 mls/hr Q12HR DEMETRIO Administration Insulin Aspart 65 units 10/09/24 08:00 10/11/24 10:41 Insuln Asp Prt/Insulin Aspart 100 Units/MlNovolog Mix(*Bkc) SUB-Q Not Given BIDWM [facility] Insulin Aspart 3 - 6 units 10/09/24 08:00 10/11/24 09:29 Insulin Aspart (*Bkc) 100 Units/Ml SUB-Q Not Given TIDWM [facility] Protocol Levothyroxine Sodium 100 mcg 10/09/24 06:30 10/11/24 06:48 Levothyroxine Sodium 100 Mcg Tablet PO 100 mcg DAILY@0630 DEMETRIO Administration Levothyroxine Sodium 75 mcg 10/09/24 06:30 10/11/24 06:48 Levothyroxine Sodium 75 Mcg Tablet PO 75 mcg DAILY@0630 DEMETRIO Administration Lidocaine 2 patch 10/10/24 15:00 10/11/24 10:40 Lidocaine 5% Patch TRANSDERM Not Given DAILY DEMETRIO Lidocaine/Prilocaine 1 each 10/09/24 13:55 10/09/24 14:25 Lidocaine/Prilocaine Cream 2.5-2.5% Tube TOPICAL 1 each WITH DIALYSIS PRN Administration for dialysis Protocol Magnesium Hydroxide 30 ml 10/09/24 00:23 Magnesium Hydroxide Susp 30 Ml Udc PO DAILY PRN Constipation Metoclopramide HCl 10 mg 10/09/24 00:14 10/11/24 11:08 Metoclopramide Hcl 10 Mg Tablet PO 10 mg Q6H PRN Administration nausea Montelukast Sodium 10 mg 10/09/24 09:00 10/11/24 10:40 Montelukast Sodium 10 Mg Tablet PO 10 mg DAILY DEMETRIO Administration Pantoprazole Sodium 40 mg 10/09/24 09:00 10/11/24 10:39 Pantoprazole 40 Mg Tablet PO 40 mg BID DEMETRIO Administration Paroxetine HCl 40 mg 10/09/24 09:00 10/11/24 10:39 Paroxetine 20 Mg Tablet PO 40 mg DAILY DEMETRIO Administration Radiology Results: ITS Impressions Chest CT 10/10/24 09:11 IMPRESSION: 1. Moderate sized right-sided pleural effusion. Small left-sided pleural effusion. 2. Moderate-sized consolidations in the lower lobes with air bronchograms. Differential includes atelectasis or pneumonia. Recommend follow-up to resolution. 3. There are a few small patchy, bandlike and groundglass opacities scattered throughout both lungs. Differential includes a combination of atelectasis or scarring with edema or pneumonia. 4. Mildly enlarged right hilar and mediastinal lymph nodes. The findings may be due to an inflammatory or infectious process. A malignant process is felt to be less likely but not excluded. A follow up chest CT in 3 months is recommended. Labs Labs: Laboratory Results - last 24 hr 10/10/24 10/10/24 10/10/24 11:42 12:49 15:18 WBC RBC Hgb Hct MCV MCH MCHC RDW Plt Count MPV Sodium Potassium Chloride Carbon Dioxide Anion Gap BUN Creatinine Estim Creat Clear Calc Estimated GFR Glucose POC Capillary Glucose 127 H 139 H 163 H Calcium Phosphorus Magnesium Albumin 10/10/24 10/11/24 10/11/24 21:07 04:34 08:13 WBC 7.4 RBC 3.96 L Hgb 11.3 L Hct 35.5 L MCV 89.6 MCH 28.5 MCHC 31.8 L RDW 13.5 Plt Count 262 MPV 9.5 Sodium 130 L Potassium 3.5 Chloride 94 L Carbon Dioxide 28 Anion Gap 8 BUN 9 D Creatinine 4.12 H Estim Creat Clear Calc 14 Estimated GFR 11 L Glucose 154 H POC Capillary Glucose 159 H 150 H Calcium 9.7 Phosphorus 3.5 Magnesium 1.9 Albumin 3.7 Quality VTE Prophylaxis VTE prophylaxis: pharmacologic ordered
--- NOTE | 2024-10-11 12:37 | P.PNNP_ITS ---
Progress Note: A&P Assessment and Plan (1) End stage renal disease: Code(s): N18.6 - End stage renal disease Status: Chronic Assessment and Plan: * HD tomorrow * continue Tuesday/Tuesday/Tuesday dialysis schedule while hospitalized * follow trend of electrolytes, volume status and clearance * outpatient dialysis unit = [facility] * primary training and development professional = Dr. Mathias (2) Shortness of breath: Code(s): R06.02 - Shortness of breath Status: Acute Assessment and Plan: * suspect multifactorial etiology: * pulmonary edema * pleural effusions * pneumonia * element of COPD * reported history of VIJAY * other(?) * admission/ER chest x-ray noted * s/p CT of chest with results noted * on supplemental oxygen (on chronic 2L by [place] at baseline) * fluid removal with DUF and HD * on antibiotics * follow respiratory status (3) Pneumonia: Qualifiers: Laterality: bilateral Lung location: lower lobe of lung Pneumonia type: due to unspecified organism Qualified Code(s): J18.9 - Pneumonia, unspecified organism Code(s): J18.9 - Pneumonia, unspecified organism Status: Acute Assessment and Plan: * as suggested by imaging to date * follow culture data * on antibiotics (4) Hyponatremia: Code(s): E87.1 - Hypo-osmolality and hyponatremia Status: Acute Assessment and Plan: * as noted on admission * probably related due to kidney disease/ESRD, lung disease (COPD/VIJAY) and possibly water intake * should correct to some degree with dialysis today * follow trend (5) Anemia: Code(s): D64.9 - Anemia, unspecified Status: Chronic Assessment and Plan: * due to ESRD * Epogen with HD * follow trend of H/H (6) Hypertension: Code(s): I10 - Essential (primary) hypertension Status: Chronic Assessment and Plan: * elevated on admission/currently * fluid removal with DUF/HD may help to some degree * resumed on home BP medications - not sure why on amlodipine AND diltiazem... * may need another agent... * follow trend of hemodynamics (7) Chronic hypoxemic respiratory failure: Code(s): J96.11 - Chronic respiratory failure with hypoxia Status: Chronic Assessment and Plan: * follows with Pulmonary as an outpatient * presumably due to COPD * on 2L oxygen by NC at baseline (8) Diabetes mellitus: Code(s): E11.9 - Type 2 diabetes mellitus without complications Status: Chronic Assessment and Plan: * follow accu-cheks * glycemic control per hospitalist Will continue to follow. L Subjective Date/time seen: 10/11/24 12:37 Interval history: Follow-up for end stage renal disease on hemodialysis. Tolerated dialysis treatment yesterday without any issues or problems; reported slow and steady improvement in breathing/respiratory status with current interventions/therapy to date; no other acute complaints voiced at the time of my visit. Exam 2 Narrative: General: WD/WN female in NAD Heart: normal S1 and S2; no rub Lungs: coarse breath sounds; decreased at bases Abdomen: soft, nontender, nondistended, positive bowel sounds Extremities: no cyanosis or clubbing; trace edema Skin: warm and intact Objective Data Vital Signs Vital Signs: Vital Signs Temp Pulse Resp BP Pulse Ox O2 Del Method O2 Flow Rate 10/11/24 12:31 97.1 F L 69 16 161/56 H 98 10/11/24 10:40 99 Nasal Cannula 1.5 10/11/24 04:00 97.5 F L 65 20 165/61 H 99 10/11/24 00:00 97.6 F 63 20 154/50 H 99 10/10/24 20:45 65 100 Nasal Cannula 1 10/10/24 20:00 99 Nasal Cannula 2 10/10/24 20:00 97.1 F L 65 20 152/60 H 100 Intake/Output Intake/Output: Intake & Output 10/08/24 10/09/24 10/10/24 10/11/24 23:59 23:59 23:59 23:59 Intake Total 1120 1310 590 Output Total 2500 2500 0 Balance -1380 -1190 590 Meds/Results Medications: Active Medications Generic Name Dose Route Start Last Admin Trade Name Freq PRN Reason Stop Dose Admin Acetaminophen 650 mg 10/09/24 00:23 Acetaminophen 325 Mg Tablet PO Q4H PRN Mild Pain (1-3) or Fever Hydrocodone Bitart/Acetaminophen 1 tab 10/09/24 00:14 10/10/24 20:46 Hydrocodone/Acetaminophen (*Crx) 7.5-325 Mg Tablet PO 1 tab QID PRN Administration Pain 7-10 Al Hydrox/Mg Hydrox/Simethicone 30 ml 10/09/24 00:23 Mag Hydrox/Al Hydrox/Simeth 30 Ml Udc PO QID PRN Dyspepsia Amlodipine Besylate 5 mg 10/09/24 09:00 10/11/24 10:39 Amlodipine Besylate 5 Mg Tablet PO 5 mg DAILY DEMETRIO Administration Apixaban 5 mg 10/09/24 09:00 10/11/24 10:40 Apixaban 5 Mg Tablet PO 5 mg Q12HR DEMETRIO Administration Atorvastatin Calcium 20 mg 10/09/24 21:00 10/10/24 20:44 Atorvastatin 20 Mg Tablet PO 20 mg HS DEMETRIO Administration Clopidogrel Bisulfate 75 mg 10/09/24 09:00 10/11/24 10:39 Clopidogrel Bisulfate 75 Mg Tablet PO 75 mg DAILY DEMETRIO Administration Dextrose 12.5 gm 10/09/24 00:21 Dextrose 50% 25 Gm/50 Ml Syringe IV PUSH PRN PRN Hypoglycemia Protocol Diltiazem HCl 180 mg 10/09/24 09:00 10/11/24 10:39 Diltiazem Hcl Cd 180 Mg Cap.24hr PO 180 mg DAILY DEMETRIO Administration Fluticasone/Umeclidinium/Vilanterol 1 puff 10/09/24 08:00 10/11/24 10:11 Fluticasone/Umeclidin/Vilanter 100-62.5-25 Mcg Ellipta INHALATION Not Given DAILYRT DEMETRIO Glucagon 1 mg 10/09/24 00:21 Glucagon For Inj 1 Mg Vial IM PRN PRN Hypoglycemia Protocol Glucose 15 gm 10/09/24 00:21 Glucose Oral Gel 15 Gm Of Glucse In 37.5 Gm Tube PO PRN PRN Hypoglycemia Protocol Dextrose 1,000 mls @ 100 mls/hr 10/09/24 00:21 Dextrose 5% 1,000 Ml IVPB PRN PRN Hypoglycemia Protocol Albumin Human 50 mls @ 999 mls/hr 10/09/24 13:50 Albutein IVPB 11/08/24 13:49 Q10M PRN HYPOTENSION Ceftriaxone Sodium 1 gm/ 50 mls @ 100 mls/hr 10/10/24 12:00 10/11/24 13:13 Sodium Chloride IVPB Infused Q24H DEMETRIO Infusion Doxycycline Hyclate 100 mg/ 100 mls @ 100 mls/hr 10/10/24 12:30 10/11/24 11:40 Sodium Chloride IVPB Infused Q12HR [facility] Infusion Insulin Aspart 65 units 10/09/24 08:00 10/11/24 10:41 Insuln Asp Prt/Insulin Aspart 100 Units/MlNovolog Mix(*Bkc) SUB-Q Not Given BIDWM [facility] Insulin Aspart 3 - 6 units 10/09/24 08:00 10/11/24 12:41 Insulin Aspart (*Bkc) 100 Units/Ml SUB-Q Not Given TIDWM [facility] Protocol Levothyroxine Sodium 100 mcg 10/09/24 06:30 10/11/24 06:48 Levothyroxine Sodium 100 Mcg Tablet PO 100 mcg DAILY@0630 [facility] Administration Levothyroxine Sodium 75 mcg 10/09/24 06:30 10/11/24 06:48 Levothyroxine Sodium 75 Mcg Tablet PO 75 mcg DAILY@0630 [facility] Administration Lidocaine 2 patch 10/10/24 15:00 10/11/24 10:40 Lidocaine 5% Patch TRANSDERM Not Given DAILY [facility] Lidocaine/Prilocaine 1 each 10/09/24 13:55 10/09/24 14:25 Lidocaine/Prilocaine Cream 2.5-2.5% Tube TOPICAL 1 each WITH DIALYSIS PRN Administration for dialysis Protocol Magnesium Hydroxide 30 ml 10/09/24 00:23 Magnesium Hydroxide Susp 30 Ml Udc PO DAILY PRN Constipation Metoclopramide HCl 10 mg 10/09/24 00:14 10/11/24 11:08 Metoclopramide Hcl 10 Mg Tablet PO 10 mg Q6H PRN Administration nausea Montelukast Sodium 10 mg 10/09/24 09:00 10/11/24 10:40 Montelukast Sodium 10 Mg Tablet PO 10 mg DAILY DEMETRIO Administration Pantoprazole Sodium 40 mg 10/09/24 09:00 10/11/24 10:39 Pantoprazole 40 Mg Tablet PO 40 mg BID DEMETRIO Administration Paroxetine HCl 40 mg 10/09/24 09:00 10/11/24 10:39 Paroxetine 20 Mg Tablet PO 40 mg DAILY DEMETRIO Administration Radiology Results: ITS Impressions Chest CT 10/10/24 09:11 IMPRESSION: 1. Moderate sized right-sided pleural effusion. Small left-sided pleural effusion. 2. Moderate-sized consolidations in the lower lobes with air bronchograms. Differential includes atelectasis or pneumonia. Recommend follow-up to resolution. 3. There are a few small patchy, bandlike and groundglass opacities scattered throughout both lungs. Differential includes a combination of atelectasis or scarring with edema or pneumonia. 4. Mildly enlarged right hilar and mediastinal lymph nodes. The findings may be due to an inflammatory or infectious process. A malignant process is felt to be less likely but not excluded. A follow up chest CT in 3 months is recommended. Labs Labs: Laboratory Tests 10/11/24 04:34 10/11/24 04:34 Calcium 9.7 Phosphorus 3.5 Magnesium 1.9 Albumin 3.7
[2024-10-11] MEDS: cefTRIAXone 1 GM in SODIUM CHLORIDE 0.9% IV 50 ML 100 ML IVPB (12:43)
[2024-10-11 15:31] VITALS: BP 161/56; PULSE 69; RESP 16; TEMP 36.2; O2SAT 98
[2024-10-11] MEDS: HYDROcodone/acetaminophen (*CRX) 7.5-325 MG TABLET 1 TAB PO (17:26)
[2024-10-11 20:00] VITALS: BP 165/68; PULSE 68; RESP 20; TEMP 36.6; O2SAT 99
[2024-10-11] MEDS: ATORVASTATIN 20 MG TABLET PO (21:10)
[2024-10-12] VITALS (24 sets, daily range): BP systolic 113–168; BP diastolic 57–93; PULSE 65–77; RESP 16–20; TEMP 36.1–37; O2SAT 97–100
[2024-10-12 06:10] LABS: Hematocrit 34.4 % (37.0-47.0); Hemoglobin 10.8 g/dL (12.0-15.0); Mean Corpuscular HGB Conc 31.4 g/dl (32-36); Mean Corpuscular Hemoglobin 27.7 pg (26-34); Mean Corpuscular Volume 88.2 fl (80-100); Platelet Count Result 252 k/mm3 (150-375); Red Blood Count 3.90 M/mm3 (4.2-5.4); White Blood Count 7.9 K/mm3 (4.5-10.0)
[2024-10-12 06:40] LABS: Albumin Level 3.5 g/dL (3.5-5.1); Anion Gap 7 mmol/L (4-12); Blood Urea Nitrogen 14 mg/dL (7-17); Calcium 10.2 mg/dL (8.4-10.2); Carbon Dioxide 27 mmol/L (22-30); Chloride 95 mmol/L (98-107); Estimated CRCL calculation 10 ml/min; Estimated Glomerular Filt Rate 7; Glucose 157 mg/dL (65-110); Magnesium 1.9 mg/dL (1.6-2.3); Potassium 3.7 mmol/L (3.4-5.0); Sodium 129 mmol/L (137-145)
--- NOTE | 2024-10-12 07:52 | PM.IMPN ---
Progress Note: A&P Assessment and Plan (1) COPD (chronic obstructive pulmonary disease): Qualifiers: COPD type: COPD with acute exacerbation Qualified Code(s): J44.1 - Chronic obstructive pulmonary disease with (acute) exacerbation Code(s): J44.9 - Chronic obstructive pulmonary disease, unspecified Status: Acute (2) ESRD (end stage renal disease) on dialysis: Code(s): N18.6 - End stage renal disease; Z99.2 - Dependence on renal dialysis Status: Acute Assessment and Plan: patient will have scheduled HD (3) Diabetes mellitus: Code(s): E11.9 - Type 2 diabetes mellitus without complications Status: Chronic Assessment and Plan: will resume home medications and monitor with sliding scale Plan SOB fluid overload vs pneumonia Continue Abx On HD getting better N/V abd pain possible secondary to uremia Vs gastroparesis vs others. LLq pain? diverticulitis will give Zofran, will get Ct abd. Consulted Gi Team. ESRD on HD Nephrology team on board ?Pneumonia C/W Abx Pleural effusion On HD Subjective Date/time seen: 10/12/24 07:52 Interval history: per previous note patient with shortness of breath to fu rther evaluate patient had chest x-ray confluent opacities in the lower hemithoraces. Differential includes a combination of pleural fluid with adjacent atelectasis and/or consolidation. An underlying mass is possible. Consider a chest CT for further assessment. 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 The findings may be due to an inflammatory or infectious process. A malignant process is felt to be less likely but not excluded. A follow up chest CT in 3 months is recommended. I did discuss with patient that she will need repeat CT of the chest in three months. will monitor. patient stats feeling better, denies any cough or shortness of breath, does complaints of nausea but no abdomen pain, last BM was two days ago, its normal for the patient, will continue antibiotic and repeat chest x-ray tomorrow after dialysis, and further recommendation to follow. patient boyfriend is present. 10/12/24 Patient was seen and examined at bedside. she is feeling nauseated. has lower abd pain. underwent HD today. will give Zofran, will get Ct abd. Consulted Gi Team. plan was discussed with nephrology team Review of Systems Review of Systems: All systems reviewed & are unremarkable except as noted in HPI and below Exam Narrative: Patient is comfortable, NAD HEENT: eyes are clear and none icteric LUNGS:CTA HEART: RR S1S2 ABD: BS+, Soft and nontender Lower extremities: no edema SKIN: nonjaundiced Neuro: grossly intact. Objective Data Vital Signs Vital Signs: Vital Signs - 24 hr 10/11/24 10:40 10/11/24 15:31 10/11/24 20:00 Temperature 97.1 F L 98 F Pulse Rate 69 68 Respiratory Rate 16 20 Blood Pressure 161/56 H 165/68 H Pulse Oximetry 99 98 99 Oxygen Delivery Nasal Cannula Oxygen Flow Rate 1.5 10/11/24 20:00 10/12/24 00:00 10/12/24 04:10 Temperature 97 F L 97.2 F L Pulse Rate 65 68 Respiratory Rate 16 20 Blood Pressure 126/77 165/60 H Pulse Oximetry 99 99 100 Oxygen Delivery Nasal Cannula Oxygen Flow Rate 1.5 Intake/Output Intake/Output: Intake & Output 10/09/24 10/10/24 10/11/24 10/12/24 23:59 23:59 23:59 23:59 Intake Total 1120 1310 930 100 Output Total 2500 2500 0 0 Balance -1380 -1190 930 100 Meds/Results Medications: Active Medications Generic Name Dose Route Start Last Admin Trade Name Freq PRN Reason Stop Dose Admin Acetaminophen 650 mg 10/09/24 00:23 Acetaminophen 325 Mg Tablet PO Q4H PRN Mild Pain (1-3) or Fever Hydrocodone Bitart/Acetaminophen 1 tab 10/09/24 00:14 10/11/24 17:26 Hydrocodone/Acetaminophen (*Crx) 7.5-325 Mg Tablet PO 1 tab QID PRN Administration Pain 7-10 Al Hydrox/Mg Hydrox/Simethicone 30 ml 10/09/24 00:23 Mag Hydrox/Al Hydrox/Simeth 30 Ml Udc PO QID PRN Dyspepsia Amlodipine Besylate 5 mg 10/09/24 09:00 10/11/24 10:39 Amlodipine Besylate 5 Mg Tablet PO 5 mg DAILY DEMETRIO Administration Apixaban 5 mg 10/09/24 09:00 10/11/24 21:11 Apixaban 5 Mg Tablet PO 5 mg Q12HR DEMETRIO Administration Atorvastatin Calcium 20 mg 10/09/24 21:00 10/11/24 21:10 Atorvastatin 20 Mg Tablet PO 20 mg HS DEMETRIO Administration Clopidogrel Bisulfate 75 mg 10/09/24 09:00 10/11/24 10:39 Clopidogrel Bisulfate 75 Mg Tablet PO 75 mg DAILY DEMETRIO Administration Dextrose 12.5 gm 10/09/24 00:21 Dextrose 50% 25 Gm/50 Ml Syringe IV PUSH PRN PRN Hypoglycemia Protocol Diltiazem HCl 180 mg 10/09/24 09:00 10/11/24 10:39 Diltiazem Hcl Cd 180 Mg Cap.24hr PO 180 mg DAILY DEMETRIO Administration Epoetin Jos-epbx 10,000 units 10/12/24 18:23 Epoetin Jos-Epbx 10,000 Units/Ml Vial IV PUSH 10/12/24 18:24 ONCE ONE Fluticasone/Umeclidinium/Vilanterol 1 puff 10/09/24 08:00 10/11/24 10:11 Fluticasone/Umeclidin/Vilanter 100-62.5-25 Mcg Ellipta INHALATION Not Given DAILYRT DEMETRIO Glucagon 1 mg 10/09/24 00:21 Glucagon For Inj 1 Mg Vial IM PRN PRN Hypoglycemia Protocol Glucose 15 gm 10/09/24 00:21 Glucose Oral Gel 15 Gm Of Glucse In 37.5 Gm Tube PO PRN PRN Hypoglycemia Protocol Dextrose 1,000 mls @ 100 mls/hr 10/09/24 00:21 Dextrose 5% 1,000 Ml IVPB PRN PRN Hypoglycemia Protocol Albumin Human 50 mls @ 999 mls/hr 10/09/24 13:50 Albutein IVPB 11/08/24 13:49 Q10M PRN HYPOTENSION Ceftriaxone Sodium 1 gm/ 50 mls @ 100 mls/hr 10/10/24 12:00 10/11/24 13:13 Sodium Chloride IVPB Infused Q24H DEMETRIO Infusion Doxycycline Hyclate 100 mg/ 100 mls @ 100 mls/hr 10/10/24 12:30 10/11/24 22:15 Sodium Chloride IVPB Infused Q12HR [facility] Infusion Insulin Aspart 65 units 10/09/24 08:00 10/11/24 17:44 Insuln Asp Prt/Insulin Aspart 100 Units/MlNovolog Mix(*Bkc) SUB-Q Not Given BIDWM [facility] Insulin Aspart 3 - 6 units 10/09/24 08:00 10/11/24 17:25 Insulin Aspart (*Bkc) 100 Units/Ml SUB-Q Not Given TIDWM [facility] Protocol Levothyroxine Sodium 100 mcg 10/09/24 06:30 10/11/24 06:48 Levothyroxine Sodium 100 Mcg Tablet PO 100 mcg DAILY@0630 DEMETRIO Administration Levothyroxine Sodium 75 mcg 10/09/24 06:30 10/11/24 06:48 Levothyroxine Sodium 75 Mcg Tablet PO 75 mcg DAILY@0630 DEMETRIO Administration Lidocaine 2 patch 10/10/24 15:00 10/11/24 10:40 Lidocaine 5% Patch TRANSDERM Not Given DAILY [facility] Lidocaine/Prilocaine 1 each 10/09/24 13:55 10/09/24 14:25 Lidocaine/Prilocaine Cream 2.5-2.5% Tube TOPICAL 1 each WITH DIALYSIS PRN Administration for dialysis Protocol Magnesium Hydroxide 30 ml 10/09/24 00:23 Magnesium Hydroxide Susp 30 Ml Udc PO DAILY PRN Constipation Metoclopramide HCl 10 mg 10/09/24 00:14 10/11/24 11:08 Metoclopramide Hcl 10 Mg Tablet PO 10 mg Q6H PRN Administration nausea Montelukast Sodium 10 mg 10/09/24 09:00 10/11/24 10:40 Montelukast Sodium 10 Mg Tablet PO 10 mg DAILY DEMETRIO Administration Pantoprazole Sodium 40 mg 10/09/24 09:00 10/11/24 17:26 Pantoprazole 40 Mg Tablet PO 40 mg BID DEMETRIO Administration Paroxetine HCl 40 mg 10/09/24 09:00 10/11/24 10:39 Paroxetine 20 Mg Tablet PO 40 mg DAILY DEMETRIO Administration Radiology Results: ITS Impressions Chest CT 10/10/24 09:11 IMPRESSION: 1. Moderate sized right-sided pleural effusion. Small left-sided pleural effusion. 2. Moderate-sized consolidations in the lower lobes with air bronchograms. Differential includes atelectasis or pneumonia. Recommend follow-up to resolution. 3. There are a few small patchy, bandlike and groundglass opacities scattered throughout both lungs. Differential includes a combination of atelectasis or scarring with edema or pneumonia. 4. Mildly enlarged right hilar and mediastinal lymph nodes. The findings may be due to an inflammatory or infectious process. A malignant process is felt to be less likely but not excluded. A follow up chest CT in 3 months is recommended. Labs Labs: Laboratory Results - last 24 hr 10/11/24 10/11/24 10/11/24 08:13 12:14 17:04 WBC RBC Hgb Hct MCV MCH MCHC RDW Plt Count MPV Sodium Potassium Chloride Carbon Dioxide Anion Gap BUN Creatinine Estim Creat Clear Calc Estimated GFR Glucose POC Capillary Glucose 150 H 162 H 141 H Calcium Phosphorus Magnesium Albumin 10/12/24 06:06 WBC 7.9 RBC 3.90 L Hgb 10.8 L Hct 34.4 L MCV 88.2 MCH 27.7 MCHC 31.4 L RDW 13.8 Plt Count 252 MPV 9.0 Sodium 129 L Potassium 3.7 Chloride 95 L Carbon Dioxide 27 Anion Gap 7 BUN 14 D Creatinine 5.99 H Estim Creat Clear Calc 10 Estimated GFR 7 L Glucose 157 H POC Capillary Glucose Calcium 10.2 Phosphorus 4.5 Magnesium 1.9 Albumin 3.5 Quality VTE Prophylaxis VTE prophylaxis: pharmacologic ordered
[2024-10-12] MEDS: EPOETIN ALFA-EPBX 10,000 UNITS/ML VIAL 10000 UNITS IV PUSH (08:40)
[2024-10-12] MEDS: SODIUM CHLORIDE 0.9% IV 1,000 ML 999 ML IV CONT (08:41)
[2024-10-12] MEDS: FLUTICASONE/UMECLIDIN/VILANTER 100-62.5-25 MCG ELLIPTA 1 PUFF INHALATION (09:30)
--- NOTE | 2024-10-12 09:44 | PCRCNOTE ---
Patient was in dialysis this morning, therefore, patients Trelegy inhaler was given late. Patient received this inhaler in Dialysis
[2024-10-12] MEDS: METOCLOPRAMIDE HCL 10 MG TABLET PO (10:22)
--- NOTE | 2024-10-12 11:10 | PM.PNNEP ---
Progress Note: A&P Assessment and Plan (1) End stage renal disease: Code(s): N18.6 - End stage renal disease Status: Chronic Assessment and Plan: HD today continue Tuesday/Tuesday/Tuesday dialysis schedule while hospitalized follow trend of electrolytes, volume status and clearance outpatient dialysis unit = [facility] primary lining strap closer = Dr. Mathias (2) Shortness of breath: Code(s): R06.02 - Shortness of breath Status: Acute Assessment and Plan: clinically improved/better suspect multifactorial etiology: pulmonary edema pleural effusions pneumonia element of COPD reported history of VIJAY other(?) complicated by chronic hypoxic respiratory failure follows with Pulmonary as an outpatient presumably due to COPD on 2L oxygen by NC at baseline admission/ER chest x-ray noted s/p CT of chest with results reviewed fluid removal with DUF/HD as tolerated on antibiotics follow respiratory status (3) Pneumonia: Qualifiers: Laterality: bilateral Lung location: lower lobe of lung Pneumonia type: due to unspecified organism Qualified Code(s): J18.9 - Pneumonia, unspecified organism Code(s): J18.9 - Pneumonia, unspecified organism Status: Acute Assessment and Plan: as suggested by imaging to date follow culture data on antibiotics (4) Nausea: Code(s): R11.0 - Nausea Status: Chronic Assessment and Plan: chronic issue however, worse now associated with poor oral intake and abdominal discomfort as well on IV antiemetics consider GI consult(?) was due to see as an outpatient next month... (5) Hyponatremia: Code(s): E87.1 - Hypo-osmolality and hyponatremia Status: Acute Assessment and Plan: as noted on admission probably related due to kidney disease/ESRD, lung disease (COPD/VIJAY), chronic nausea, and possibly increased free water intake suspect a chronic component pneumonia may be playing a role as well(?) should correct to some degree with dialysis follow trend (6) Anemia: Code(s): D64.9 - Anemia, unspecified Status: Chronic Assessment and Plan: due to ESRD Epogen with HD follow trend of H/H (7) Hypertension: Code(s): I10 - Essential (primary) hypertension Status: Chronic Assessment and Plan: elevated on admission/currently fluid removal with DUF/HD may help to some degree resumed on home BP medications not sure why on both amlodipine AND diltiazem... follow trend of hemodynamics (8) Diabetes mellitus: Code(s): E11.9 - Type 2 diabetes mellitus without complications Status: Chronic Assessment and Plan: follow accu-cheks glycemic control per hospitalist Will continue to follow. Subjective Date/time seen: 10/12/24 11:10 Interval history: Follow-up for end stage renal disease on hemodialysis. Seen on HD at the time of my visit (seen on HD at 11:00am) but quite nauseated with some mild abdominal pain with no relief from IV anti-ementic therapy -- requesting to end her dialysis treatment early given her symptoms; breathing/respiratory status appears stable if not better; no acute distress voiced when seen but just states she does not feel well. Exam Narrative: General: WD/WN female in NAD Heart: normal S1 and S2; no rub Lungs: coarse breath sounds; decreased at bases Abdomen: soft, nontender, nondistended, positive bowel sounds Extremities: no cyanosis or clubbing; trace edema Skin: no rash Objective Data Vital Signs Vital Signs: Vital Signs Temp Pulse Resp BP Pulse Ox O2 Del Method O2 Flow Rate 10/12/24 11:08 77 144/91 H 10/12/24 11:00 77 113/61 10/12/24 10:45 72 153/65 H 10/12/24 10:30 75 147/64 H 10/12/24 10:15 76 147/64 H 10/12/24 10:00 76 127/57 L 10/12/24 09:45 74 143/66 H 10/12/24 09:30 73 144/65 H 10/12/24 09:15 71 148/64 H 10/12/24 09:00 73 153/64 H 10/12/24 08:45 73 150/64 H 10/12/24 08:30 72 161/68 H 10/12/24 08:15 71 166/69 H 10/12/24 08:00 71 143/67 H 10/12/24 07:52 68 163/67 H 10/12/24 07:40 97.6 F 71 16 168/69 H 98 Nasal Cannula 1.5 10/12/24 04:10 97.2 F L 68 20 165/60 H 100 10/12/24 00:00 97 F L 65 16 126/77 99 10/11/24 20:00 99 Nasal Cannula 1.5 10/11/24 20:00 98 F 68 20 165/68 H 99 10/11/24 15:31 97.1 F L 69 16 161/56 H 98 Intake/Output Intake/Output: Intake & Output 10/09/24 10/10/24 10/11/24 10/12/24 23:59 23:59 23:59 23:59 Intake Total 1120 1310 930 100 Output Total 2500 2500 0 3686 Balance -1380 -1190 930 -3586 Meds/Results Medications: Active Medications Generic Name Dose Route Start Last Admin Trade Name Freq PRN Reason Stop Dose Admin Acetaminophen 650 mg 10/09/24 00:23 Acetaminophen 325 Mg Tablet PO Q4H PRN Mild Pain (1-3) or Fever Hydrocodone Bitart/Acetaminophen 1 tab 10/09/24 00:14 10/11/24 17:26 Hydrocodone/Acetaminophen (*Crx) 7.5-325 Mg Tablet PO 1 tab QID PRN Administration Pain 7-10 Al Hydrox/Mg Hydrox/Simethicone 30 ml 10/09/24 00:23 Mag Hydrox/Al Hydrox/Simeth 30 Ml Udc PO QID PRN Dyspepsia Amlodipine Besylate 5 mg 10/09/24 09:00 10/11/24 10:39 Amlodipine Besylate 5 Mg Tablet PO 5 mg DAILY DEMETRIO Administration Apixaban 5 mg 10/09/24 09:00 10/11/24 21:11 Apixaban 5 Mg Tablet PO 5 mg Q12HR DEMETRIO Administration Atorvastatin Calcium 20 mg 10/09/24 21:00 10/11/24 21:10 Atorvastatin 20 Mg Tablet PO 20 mg HS DEMETRIO Administration Azithromycin 500 mg 10/12/24 21:00 Azithromycin 250 Mg Tablet PO 10/13/24 21:01 QHS DEMETRIO Clopidogrel Bisulfate 75 mg 10/09/24 09:00 10/11/24 10:39 Clopidogrel Bisulfate 75 Mg Tablet PO 75 mg DAILY DEMETRIO Administration Dextrose 12.5 gm 10/09/24 00:21 Dextrose 50% 25 Gm/50 Ml Syringe IV PUSH PRN PRN Hypoglycemia Protocol Diltiazem HCl 180 mg 10/09/24 09:00 10/11/24 10:39 Diltiazem Hcl Cd 180 Mg Cap.24hr PO 180 mg DAILY DEMETRIO Administration Epoetin Jos-epbx 10,000 units 10/12/24 18:23 10/12/24 08:40 Epoetin Jos-Epbx 10,000 Units/Ml Vial IV PUSH 10/12/24 18:24 10,000 units ONCE ONE Administration Fluticasone/Umeclidinium/Vilanterol 1 puff 10/09/24 08:00 10/12/24 09:30 Fluticasone/Umeclidin/Vilanter 100-62.5-25 Mcg Ellipta INHALATION 1 puff DAILYRT DEMETRIO Administration Glucagon 1 mg 10/09/24 00:21 Glucagon For Inj 1 Mg Vial IM PRN PRN Hypoglycemia Protocol Glucose 15 gm 10/09/24 00:21 Glucose Oral Gel 15 Gm Of Glucse In 37.5 Gm Tube PO PRN PRN Hypoglycemia Protocol Dextrose 1,000 mls @ 100 mls/hr 10/09/24 00:21 Dextrose 5% 1,000 Ml IVPB PRN PRN Hypoglycemia Protocol Albumin Human 50 mls @ 999 mls/hr 10/09/24 13:50 Albutein IVPB 11/08/24 13:49 Q10M PRN HYPOTENSION Ceftriaxone Sodium 1 gm/ 50 mls @ 100 mls/hr 10/10/24 12:00 10/11/24 13:13 Sodium Chloride IVPB Infused Q24H REPLACED BY [facility] Infusion Insulin Aspart 3 - 6 units 10/09/24 08:00 10/12/24 10:28 Insulin Aspart (*Bkc) 100 Units/Ml SUB-Q Not Given TIDWM REPLACED BY [facility] Protocol Levothyroxine Sodium 100 mcg 10/09/24 06:30 10/12/24 10:28 Levothyroxine Sodium 100 Mcg Tablet PO Not Given DAILY@0630 REPLACED BY [facility] Levothyroxine Sodium 75 mcg 10/09/24 06:30 10/12/24 10:28 Levothyroxine Sodium 75 Mcg Tablet PO Not Given DAILY@0630 REPLACED BY [facility] Lidocaine 2 patch 10/10/24 15:00 10/11/24 10:40 Lidocaine 5% Patch TRANSDERM Not Given DAILY REPLACED BY [facility] Lidocaine/Prilocaine 1 each 10/09/24 13:55 10/09/24 14:25 Lidocaine/Prilocaine Cream 2.5-2.5% Tube TOPICAL 1 each WITH DIALYSIS PRN Administration for dialysis Protocol Magnesium Hydroxide 30 ml 10/09/24 00:23 Magnesium Hydroxide Susp 30 Ml Udc PO DAILY PRN Constipation Metoclopramide HCl 10 mg 10/09/24 00:14 10/12/24 10:22 Metoclopramide Hcl 10 Mg Tablet PO 10 mg Q6H PRN Administration nausea Montelukast Sodium 10 mg 10/09/24 09:00 10/11/24 10:40 Montelukast Sodium 10 Mg Tablet PO 10 mg DAILY DEMETRIO Administration Ondansetron HCl 4 mg 10/12/24 11:53 10/12/24 12:11 Ondansetron Inj 4 Mg/2 Ml Vial IV PUSH 4 mg Q6H PRN Administration Nausea And Vomiting Pantoprazole Sodium 40 mg 10/09/24 09:00 10/11/24 17:26 Pantoprazole 40 Mg Tablet PO 40 mg BID DEMETRIO Administration Paroxetine HCl 40 mg 10/09/24 09:00 10/11/24 10:39 Paroxetine 20 Mg Tablet PO 40 mg DAILY DEMETRIO Administration Radiology Results: ITS Impressions Chest CT 10/10/24 09:11 IMPRESSION: 1. Moderate sized right-sided pleural effusion. Small left-sided pleural effusion. 2. Moderate-sized consolidations in the lower lobes with air bronchograms. Differential includes atelectasis or pneumonia. Recommend follow-up to resolution. 3. There are a few small patchy, bandlike and groundglass opacities scattered throughout both lungs. Differential includes a combination of atelectasis or scarring with edema or pneumonia. 4. Mildly enlarged right hilar and mediastinal lymph nodes. The findings may be due to an inflammatory or infectious process. A malignant process is felt to be less likely but not excluded. A follow up chest CT in 3 months is recommended. Labs Labs: Laboratory Tests 10/12/24 06:06 10/12/24 06:06 Hemoglobin A1c 5.6 Calcium 10.2 Phosphorus 4.5 Magnesium 1.9 Albumin 3.5
[2024-10-12 11:32] LABS: Hemoglobin A1C 5.6 % (<5.7)
[2024-10-12] MEDS: ONDANSETRON INJ 4 MG/2 ML VIAL IV PUSH (12:11)
[2024-10-12] MEDS: DOXYCYCLINE IV 100 MG in SODIUM CHLORIDE 0.9% IV 100 ML IVPB (12:12)
[2024-10-12] MEDS: MONTELUKAST SODIUM 10 MG TABLET PO (14:19)
[2024-10-12] MEDS: CLOPIDOGREL BISULFATE 75 MG TABLET PO (14:20)
[2024-10-12] MEDS: cefTRIAXone 1 GM in SODIUM CHLORIDE 0.9% IV 50 ML 100 ML IVPB (14:20)
[2024-10-12] MEDS: dilTIAZem HCL CD 180 MG CAP.24HR PO (14:20)
--- NOTE | 2024-10-12 17:27 | WPDGICN ---
Assessment and Plan Assessment and plan (1) Gastroparesis: Code(s): K31.84 - Gastroparesis Status: Acute Assessment and Plan: The patient, who has a history of longstanding diabetes and chronic renal failure, is experiencing a recurrence of gastroparesis. While radiologic findings appear worse, her clinical symptoms are surprisingly mild, as she is comfortable and not vomiting. Therefore nasogastric suction is not indicated at this moment. Given her condition, she will be started on IV metoclopramide to ensure effective absorption, as oral medication may not be well-absorbed due to her gastroparesis. Her response will be closely monitored while she is also being treated for pneumonia, which may very well be aspirative in nature associated to her underlying gastroparesis. The goal is to transition her to an oral regimen once her symptoms improve and she can better tolerate food. GI Consult Note Consult date/time: 10/12/24 17:27 Reason for consult: Abdominal pain HPI: Tyson Smith is a 64 year old female with a longstanding history of diabetes, chronic renal failure, COPD, and CHF, on hemodialysis 3 times a week. The reason for consultation is the onset of epigastric/ generalized abdominal pain, especially postprandially associated with nausea. Of note, a CT scan of the abdomen revealed retained gastric contents in the stomach with significant distention. Upon further questioning, the patient states that she has been diagnosed with gastroparesis in the past having intermittent episodes of nausea and even vomiting. During this hospitalization the patient has been experiencing poor appetite. Review of Systems Review of Systems: All systems reviewed & are unremarkable except as noted in HPI and below PMFSH Past Medical History Medical History (Updated 10/12/24 @ 17:29 by Stefano Hsu MD) CHF (congestive heart failure) Anxiety and depression History of CVA (cerebrovascular accident) VIJAY (obstructive sleep apnea) CAD (coronary artery disease) Hypothyroidism Other chronic pain Incomplete tear of left rotator cuff Chronic left shoulder pain Anemia Hypertension Hyperlipidemia ESRD (end stage renal disease) on dialysis COPD (chronic obstructive pulmonary disease) Diabetes mellitus Surgical History Surgical History S/P cholecystectomy History of thyroid surgery History of x2 Hx of appendectomy Family History Family History Father Diabetes mellitus Hypertension Cerebrovascular accident Family history of arthritis Family history of malignant neoplasm Mother Family history of malignant neoplasm Family history of diabetes mellitus in first degree relative Social History Social History Smoking packs per day: 0.5 Smoking cigarettes per day: 10.0 Years smoked: 20 Smoking pack-years: 10.00 Smoking status: Former smoker Tobacco type: cigarettes Second hand tobacco smoke exposure: No Smoking end date: 08/20/24 Alcohol intake: former Substance use: never Substance use type: marijuana Other substance usage details: occasion Lack of Transportation: No Lack of Food: Never True Current Housing: I Have Housing Concerned About Future Housing: No Difficulty Paying Gas/Electric Bills: No Difficulty Paying for Meds: No Currently Unemployed: No Education: Associate Degree Difficulty w/ Childcare or Family Care: No Living arrangements: with family Spiritual care concerns: No Meds Home Medications and Allergies Home Medications ?Medication ?Instructions ?Recorded ?Confirmed ?Type atorvastatin 20 mg tablet 20 mg PO HS 06/17/19 10/08/24 History clopidogrel 75 mg tablet 75 mg PO DAILY 06/17/19 10/08/24 History hydrocodone 7.5 mg-acetaminophen 1 tablet PO QID PRN Pain 06/17/19 10/08/24 History 325 mg tablet insulin aspar prot-insulin aspart 65 unit subcut BID 06/17/19 10/08/24 History 100 unit/mL (70-30) subcutaneous pen (Novolog Mix 70-30FlexPen U-100) levothyroxine 175 mcg tablet 175 mcg PO DAILY 06/17/19 10/08/24 History omeprazole 40 mg capsule,delayed 40 mg PO DAILY 06/17/19 10/08/24 History release paroxetine HCl 40 mg tablet 40 mg PO DAILY 06/17/19 10/08/24 History sevelamer carbonate 800 mg tablet See Rx Instructions .Route .COMPLEX 06/17/19 10/08/24 History budesonide 160 mcg-glycopyr 9 2 inh inhalation BID 01/02/21 10/08/24 History mcg-formot 4.8 mcg/actuation HFA inhaler (Breztri Aerosphere) montelukast 10 mg tablet 10 mg PO DAILY 01/02/21 10/08/24 History vitamin B complex-vitamin C-folic 0.8 tablet PO DAILY 01/02/21 10/08/24 History acid 0.8 mg tablet (Deepa-Vikash) amlodipine 5 mg tablet 5 mg PO DAILY 10/08/24 10/08/24 History apixaban 5 mg tablet (Eliquis) 5 mg PO Q12H 10/08/24 10/08/24 History diltiazem HCl 180 mg 180 mg PO Q24H 10/08/24 10/08/24 History capsule,extended release 24 hr, controlled (DILT-XR) metoclopramide HCl 10 mg tablet 10 mg PO PRN 10/08/24 10/08/24 History ondansetron 4 mg disintegrating 4 mg PO PRN 10/08/24 10/08/24 History tablet umeclidinium 62.5 mcg-vilanterol 1 inh inhalation Q24H 10/08/24 10/08/24 History 25 mcg/actuation powdr for inhalation (Anoro Ellipta) Allergies Allergy/AdvReac Type Severity Reaction Status Date / Time No Known Allergies Allergy Unverified 10/08/24 22:18 Vital Signs Vital Signs - 24 hr 10/11/24 20:00 10/11/24 20:00 10/12/24 00:00 Temperature 98 F 97 F L Pulse Rate 68 65 Respiratory Rate 20 16 Blood Pressure 165/68 H 126/77 Pulse Oximetry 99 99 99 Oxygen Delivery Nasal Cannula Oxygen Flow Rate 1.5 10/12/24 04:10 10/12/24 07:40 10/12/24 07:40 Temperature 97.2 F L 97.6 F Pulse Rate 68 71 Respiratory Rate 20 16 Blood Pressure 165/60 H 168/69 H Pulse Oximetry 100 98 Oxygen Delivery Oxygen Flow Rate 1.5 10/12/24 07:52 10/12/24 08:00 10/12/24 08:15 Temperature Pulse Rate 68 71 71 Respiratory Rate Blood Pressure 163/67 H 143/67 H 166/69 H Pulse Oximetry Oxygen Delivery Oxygen Flow Rate 10/12/24 08:30 10/12/24 08:45 10/12/24 09:00 Temperature Pulse Rate 72 73 73 Respiratory Rate Blood Pressure 161/68 H 150/64 H 153/64 H Pulse Oximetry Oxygen Delivery Oxygen Flow Rate 10/12/24 09:15 10/12/24 09:30 10/12/24 09:45 Temperature Pulse Rate 71 73 74 Respiratory Rate Blood Pressure 148/64 H 144/65 H 143/66 H Pulse Oximetry Oxygen Delivery Oxygen Flow Rate 10/12/24 10:00 10/12/24 10:15 10/12/24 10:30 Temperature Pulse Rate 76 76 75 Respiratory Rate Blood Pressure 127/57 L 147/64 H 147/64 H Pulse Oximetry Oxygen Delivery Oxygen Flow Rate 10/12/24 10:45 10/12/24 11:00 10/12/24 11:08 Temperature Pulse Rate 72 77 77 Respiratory Rate Blood Pressure 153/65 H 113/61 144/91 H Pulse Oximetry Oxygen Delivery Oxygen Flow Rate 10/12/24 11:20 10/12/24 12:10 Temperature 97.2 F L Pulse Rate 73 Respiratory Rate 16 Blood Pressure 151/63 H Pulse Oximetry 98 98 Oxygen Delivery Nasal Cannula Oxygen Flow Rate 1.5 Exam Narrative: General: WD/WN female in NAD Heart: normal S1 and S2; no rub Lungs: coarse breath sounds; decreased at bases Abdomen: soft, nontender, nondistended, positive bowel sounds Extremities: no cyanosis or clubbing; trace edema Skin: no rash Results Labs 10/12/24 06:06 10/12/24 06:06 Labs: Short CBC 10/12/24 Range/Units 06:06 WBC 7.9 (4.5-10.0) K/mm3 Hgb 10.8 L (12.0-15.0) g/dL Hct 34.4 L (37.0-47.0) % Plt Count 252 (150-375) k/mm3 BMP 10/12/24 06:06 Sodium 129 L Potassium 3.7 Chloride 95 L Carbon Dioxide 27 BUN 14 D Creatinine 5.99 H Glucose 157 H Calcium 10.2 Liver Function 10/12/24 Range/Units 06:06 Albumin 3.5 (3.5-5.1) g/dL
[2024-10-12] MEDS: INSULIN ASPART (*BKC) 100 UNITS/ML SUB-Q (18:25)
[2024-10-12] MEDS: ATORVASTATIN 20 MG TABLET PO (21:52)
[2024-10-12] MEDS: HYDROcodone/acetaminophen (*CRX) 7.5-325 MG TABLET 1 TAB PO (21:53)
[2024-10-12] MEDS: APIXABAN 5 MG TABLET PO (21:53)
[2024-10-12] MEDS: AZITHROMYCIN 250 MG TABLET 500 MG PO (21:53)
[2024-10-12] MEDS: PANTOPRAZOLE SODIUM IV 40 MG VIAL IV PUSH (21:53)
[2024-10-13] VITALS (9 sets, daily range): BP systolic 147–163; BP diastolic 52–66; PULSE 63–73; RESP 16–20; TEMP 36.6–36.8; O2SAT 97–100
[2024-10-13 05:11] LABS: Hematocrit 32.9 % (37.0-47.0); Hemoglobin 10.4 g/dL (12.0-15.0); Mean Corpuscular HGB Conc 31.6 g/dl (32-36); Mean Corpuscular Hemoglobin 28.3 pg (26-34); Mean Corpuscular Volume 89.6 fl (80-100); Platelet Count Result 247 k/mm3 (150-375); Red Blood Count 3.67 M/mm3 (4.2-5.4); White Blood Count 9.5 K/mm3 (4.5-10.0)
[2024-10-13 05:24] LABS: Albumin Level 3.6 g/dL (3.5-5.1); Anion Gap 5 mmol/L (4-12); Blood Urea Nitrogen 11 mg/dL (7-17); Calcium 10.0 mg/dL (8.4-10.2); Carbon Dioxide 28 mmol/L (22-30); Chloride 94 mmol/L (98-107); Estimated CRCL calculation 14 ml/min; Estimated Glomerular Filt Rate 11; Glucose 151 mg/dL (65-110); Magnesium 1.9 mg/dL (1.6-2.3); Potassium 3.7 mmol/L (3.4-5.0); Sodium 127 mmol/L (137-145)
[2024-10-13] MEDS: LEVOTHYROXINE SODIUM 75 MCG TABLET PO (06:07)
[2024-10-13] MEDS: LEVOTHYROXINE SODIUM 100 MCG TABLET PO (06:07)
--- NOTE | 2024-10-13 07:49 | PM.IMPN ---
Progress Note: A&P Assessment and Plan (1) COPD (chronic obstructive pulmonary disease): Qualifiers: COPD type: COPD with acute exacerbation Qualified Code(s): J44.1 - Chronic obstructive pulmonary disease with (acute) exacerbation Code(s): J44.9 - Chronic obstructive pulmonary disease, unspecified Status: Acute (2) ESRD (end stage renal disease) on dialysis: Code(s): N18.6 - End stage renal disease; Z99.2 - Dependence on renal dialysis Status: Acute Assessment and Plan: patient will have scheduled HD (3) Diabetes mellitus: Code(s): E11.9 - Type 2 diabetes mellitus without complications Status: Chronic Assessment and Plan: will resume home medications and monitor with sliding scale Plan SOB fluid overload vs pneumonia Continue Abx On HD getting better N/V abd pain possible secondary to uremia Vs gastroparesis vs others. LLq pain? diverticulitis will give Zofran, will get Ct abd. Consulted Gi Team. ESRD on HD Nephrology team on board ?Pneumonia C/W Abx Pleural effusion On HD Subjective Date/time seen: 10/13/24 07:49 Interval history: per previous note patient with shortness of breath to fu rther evaluate patient had chest x-ray confluent opacities in the lower hemithoraces. Differential includes a combination of pleural fluid with adjacent atelectasis and/or consolidation. An underlying mass is possible. Consider a chest CT for further assessment. 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 The findings may be due to an inflammatory or infectious process. A malignant process is felt to be less likely but not excluded. A follow up chest CT in 3 months is recommended. I did discuss with patient that she will need repeat CT of the chest in three months. will monitor. patient stats feeling better, denies any cough or shortness of breath, does complaints of nausea but no abdomen pain, last BM was two days ago, its normal for the patient, will continue antibiotic and repeat chest x-ray tomorrow after dialysis, and further recommendation to follow. patient boyfriend is present. 10/12/24 Patient was seen and examined at bedside. she is feeling nauseated. has lower abd pain. underwent HD today. will give Zofran, will get Ct abd. Consulted Gi Team. plan was discussed with nephrology team 10/13: Patient continues to feel better. The patient receives a reglan Review of Systems Review of Systems: All systems reviewed & are unremarkable except as noted in HPI and below Exam Narrative: Patient is comfortable, NAD HEENT: eyes are clear and none icteric LUNGS:CTA HEART: RR S1S2 ABD: BS+, Soft and nontender Lower extremities: no edema SKIN: nonjaundiced Neuro: grossly intact. Objective Data Vital Signs Vital Signs: Vital Signs - 24 hr 10/12/24 07:52 10/12/24 08:00 10/12/24 08:15 Temperature Pulse Rate 68 71 71 Respiratory Rate Blood Pressure 163/67 H 143/67 H 166/69 H Pulse Oximetry Oxygen Delivery Oxygen Flow Rate 10/12/24 08:30 10/12/24 08:45 10/12/24 09:00 Temperature Pulse Rate 72 73 73 Respiratory Rate Blood Pressure 161/68 H 150/64 H 153/64 H Pulse Oximetry Oxygen Delivery Oxygen Flow Rate 10/12/24 09:15 10/12/24 09:30 10/12/24 09:45 Temperature Pulse Rate 71 73 74 Respiratory Rate Blood Pressure 148/64 H 144/65 H 143/66 H Pulse Oximetry Oxygen Delivery Oxygen Flow Rate 10/12/24 10:00 10/12/24 10:15 10/12/24 10:30 Temperature Pulse Rate 76 76 75 Respiratory Rate Blood Pressure 127/57 L 147/64 H 147/64 H Pulse Oximetry Oxygen Delivery Oxygen Flow Rate 10/12/24 10:45 10/12/24 11:00 10/12/24 11:08 Temperature Pulse Rate 72 77 77 Respiratory Rate Blood Pressure 153/65 H 113/61 144/91 H Pulse Oximetry Oxygen Delivery Oxygen Flow Rate 10/12/24 11:20 10/12/24 12:00 10/12/24 12:10 Temperature 97.2 F L 98.3 F Pulse Rate 73 70 Respiratory Rate 16 18 Blood Pressure 151/63 H 145/93 H Pulse Oximetry 98 100 98 Oxygen Delivery Nasal Cannula Oxygen Flow Rate 1.5 10/12/24 16:00 10/12/24 20:00 10/12/24 20:00 Temperature 98.4 F 97.3 F L Pulse Rate 72 71 Respiratory Rate 18 18 Blood Pressure 148/64 H 143/60 H Pulse Oximetry 97 100 99 Oxygen Delivery Nasal Cannula Oxygen Flow Rate 1.5 10/12/24 23:26 10/13/24 04:00 10/13/24 06:15 Temperature 97.3 F L 97.9 F 97.9 F Pulse Rate 70 63 63 Respiratory Rate 18 18 18 Blood Pressure 147/57 H 163/56 H 163/56 H Pulse Oximetry 99 98 98 Oxygen Delivery Oxygen Flow Rate Intake/Output Intake/Output: Intake & Output 10/10/24 10/11/24 10/12/24 10/13/24 23:59 23:59 23:59 23:59 Intake Total 2011 760 6950 Output Total 2500 0 3686 0 Balance -1190 930 -1076 0 Meds/Results Medications: Active Medications Generic Name Dose Route Start Last Admin Trade Name Freq PRN Reason Stop Dose Admin Acetaminophen 650 mg 10/09/24 00:23 Acetaminophen 325 Mg Tablet PO Q4H PRN Mild Pain (1-3) or Fever Hydrocodone Bitart/Acetaminophen 1 tab 10/09/24 00:14 10/12/24 21:53 Hydrocodone/Acetaminophen (*Crx) 7.5-325 Mg Tablet PO 1 tab QID PRN Administration Pain 7-10 Al Hydrox/Mg Hydrox/Simethicone 30 ml 10/09/24 00:23 Mag Hydrox/Al Hydrox/Simeth 30 Ml Udc PO QID PRN Dyspepsia Amlodipine Besylate 5 mg 10/09/24 09:00 10/12/24 14:20 Amlodipine Besylate 5 Mg Tablet PO 5 mg DAILY DEMETRIO Administration Apixaban 5 mg 10/09/24 09:00 10/12/24 21:53 Apixaban 5 Mg Tablet PO 5 mg Q12HR DEMETRIO Administration Atorvastatin Calcium 20 mg 10/09/24 21:00 10/12/24 21:52 Atorvastatin 20 Mg Tablet PO 20 mg HS DEMETRIO Administration Azithromycin 500 mg 10/12/24 21:00 10/12/24 21:53 Azithromycin 250 Mg Tablet PO 10/13/24 21:01 500 mg QHS DEMETRIO Administration Clopidogrel Bisulfate 75 mg 10/09/24 09:00 10/12/24 14:20 Clopidogrel Bisulfate 75 Mg Tablet PO 75 mg DAILY DEMETRIO Administration Dextrose 12.5 gm 10/09/24 00:21 Dextrose 50% 25 Gm/50 Ml Syringe IV PUSH PRN PRN Hypoglycemia Protocol Diltiazem HCl 180 mg 10/09/24 09:00 10/12/24 14:20 Diltiazem Hcl Cd 180 Mg Cap.24hr PO 180 mg DAILY DEMETRIO Administration Fluticasone/Umeclidinium/Vilanterol 1 puff 10/09/24 08:00 10/12/24 09:30 Fluticasone/Umeclidin/Vilanter 100-62.5-25 Mcg Ellipta INHALATION 1 puff DAILYRT DEMETRIO Administration Glucagon 1 mg 10/09/24 00:21 Glucagon For Inj 1 Mg Vial IM PRN PRN Hypoglycemia Protocol Glucose 15 gm 10/09/24 00:21 Glucose Oral Gel 15 Gm Of Glucse In 37.5 Gm Tube PO PRN PRN Hypoglycemia Protocol Dextrose 1,000 mls @ 100 mls/hr 10/09/24 00:21 Dextrose 5% 1,000 Ml IVPB PRN PRN Hypoglycemia Protocol Albumin Human 50 mls @ 999 mls/hr 10/09/24 13:50 Albutein IVPB 11/08/24 13:49 Q10M PRN HYPOTENSION Ceftriaxone Sodium 1 gm/ 50 mls @ 100 mls/hr 10/10/24 12:00 10/12/24 14:50 Sodium Chloride IVPB Infused Q24H DEMETRIO Infusion Insulin Aspart 3 - 6 units 10/09/24 08:00 10/12/24 18:25 Insulin Aspart (*Bkc) 100 Units/Ml SUB-Q 3 units TIDWM DEMETRIO Administration Protocol Levothyroxine Sodium 100 mcg 10/09/24 06:30 10/13/24 06:07 Levothyroxine Sodium 100 Mcg Tablet PO 100 mcg DAILY@0630 DEMETRIO Administration Levothyroxine Sodium 75 mcg 10/09/24 06:30 10/13/24 06:07 Levothyroxine Sodium 75 Mcg Tablet PO 75 mcg DAILY@0630 DEMETRIO Administration Lidocaine 2 patch 10/10/24 15:00 10/12/24 14:17 Lidocaine 5% Patch TRANSDERM Not Given DAILY [facility] Lidocaine/Prilocaine 1 each 10/09/24 13:55 10/09/24 14:25 Lidocaine/Prilocaine Cream 2.5-2.5% Tube TOPICAL 1 each WITH DIALYSIS PRN Administration for dialysis Protocol Magnesium Hydroxide 30 ml 10/09/24 00:23 Magnesium Hydroxide Susp 30 Ml Udc PO DAILY PRN Constipation Metoclopramide HCl 10 mg 10/13/24 08:00 Metoclopramide Hcl Inj 10 Mg/2 Ml Vial IV PUSH TIDWM DEMETRIO Montelukast Sodium 10 mg 10/09/24 09:00 10/12/24 14:19 Montelukast Sodium 10 Mg Tablet PO 10 mg DAILY DEMETRIO Administration Ondansetron HCl 4 mg 10/12/24 11:53 10/12/24 12:11 Ondansetron Inj 4 Mg/2 Ml Vial IV PUSH 4 mg Q6H PRN Administration Nausea And Vomiting Pantoprazole Sodium 40 mg 10/12/24 21:00 10/12/24 21:53 Pantoprazole Sodium Iv 40 Mg Vial IV PUSH 40 mg Q12HR DEMETRIO Administration Paroxetine HCl 40 mg 10/09/24 09:00 10/12/24 14:19 Paroxetine 20 Mg Tablet PO 40 mg DAILY DEMETRIO Administration Radiology Results: ITS Impressions Chest CT 10/10/24 09:11 IMPRESSION: 1. Moderate sized right-sided pleural effusion. Small left-sided pleural effusion. 2. Moderate-sized consolidations in the lower lobes with air bronchograms. Differential includes atelectasis or pneumonia. Recommend follow-up to resolution. 3. There are a few small patchy, bandlike and groundglass opacities scattered throughout both lungs. Differential includes a combination of atelectasis or scarring with edema or pneumonia. 4. Mildly enlarged right hilar and mediastinal lymph nodes. The findings may be due to an inflammatory or infectious process. A malignant process is felt to be less likely but not excluded. A follow up chest CT in 3 months is recommended. Abdomen/Pelvis CT 10/12/24 15:16 IMPRESSION: Retained gastric contents within the stomach, which is markedly distended with air-fluid levels. Hepatosplenomegaly. Moderate right and small left sided pleural effusions. Right sided consolidation. Labs Labs: Laboratory Results - last 24 hr 10/12/24 10/12/24 10/12/24 06:06 11:47 17:04 WBC RBC Hgb Hct MCV MCH MCHC RDW Plt Count MPV Sodium Potassium Chloride Carbon Dioxide Anion Gap BUN Creatinine Estim Creat Clear Calc Estimated GFR Glucose POC Capillary Glucose 121 H 217 H Hemoglobin A1c 5.6 Calcium Phosphorus Magnesium Albumin 10/12/24 10/13/24 20:28 04:36 WBC 9.5 RBC 3.67 L Hgb 10.4 L Hct 32.9 L MCV 89.6 MCH 28.3 MCHC 31.6 L RDW 14.1 Plt Count 247 MPV 9.1 Sodium 127 L Potassium 3.7 Chloride 94 L Carbon Dioxide 28 Anion Gap 5 BUN 11 Creatinine 4.23 H Estim Creat Clear Calc 14 Estimated GFR 11 L Glucose 151 H POC Capillary Glucose 202 H Hemoglobin A1c Calcium 10.0 Phosphorus 3.2 Magnesium 1.9 Albumin 3.6 Quality VTE Prophylaxis VTE prophylaxis: pharmacologic ordered Hospitalist [facility] Advance Care Plan I have confirmed that the patient's Advanced Care Plan is present, code status is documented, or surrogate decision maker is listed in patient medical record.: Yes Medication Reconciliation I have utilized all available resources to obtain, update and review the patients current medications (includes all prescriptions, OTC, herbals, cannabis, and nutritional supplements).: Yes
[2024-10-13] MEDS: FLUTICASONE/UMECLIDIN/VILANTER 100-62.5-25 MCG ELLIPTA 1 PUFF INHALATION (08:05)
[2024-10-13 08:08] LABS: Thyroid Stimulating Hormone Reflex 0.598 uIU/mL (0.465-4.68)
[2024-10-13] MEDS: METOCLOPRAMIDE HCL INJ 10 MG/2 ML VIAL IV PUSH ×3 (08:28→16:17)
[2024-10-13] MEDS: dilTIAZem HCL CD 180 MG CAP.24HR PO (08:28)
[2024-10-13] MEDS: PANTOPRAZOLE SODIUM IV 40 MG VIAL IV PUSH ×2 (08:28→20:52)
[2024-10-13] MEDS: MONTELUKAST SODIUM 10 MG TABLET PO (08:28)
[2024-10-13] MEDS: APIXABAN 5 MG TABLET PO ×2 (08:29→20:48)
[2024-10-13] MEDS: CLOPIDOGREL BISULFATE 75 MG TABLET PO (08:29)
[2024-10-13] MEDS: HYDROcodone/acetaminophen (*CRX) 7.5-325 MG TABLET 1 TAB PO ×3 (08:30→20:49)
[2024-10-13] MEDS: LIDOCAINE 5% PATCH 2 PATCH TRANSDERM ×2 (08:31→20:51)
--- NOTE | 2024-10-13 10:46 | WPDGIPROGNO ---
Progress Note: A&P Assessment and Plan (1) Gastroparesis: Code(s): K31.84 - Gastroparesis Status: Acute Assessment and Plan: Since switching from oral to intravenous metoclopramide, the patient has shown improvement in her nausea, epigastric discomfort, and oral tolerance. The plan is to continue the intravenous administration while she is hospitalized and receiving treatment for pneumonia. Once she is ready for discharge, the medication will be transitioned back to an oral form. There is no current indication for nasogastric suction or an EGD. Subjective Date/time seen: 10/13/24 10:46 Interval history: The patient tolerated clear liquid this morning, did not have any vomiting or abdominal pain. Exam Narrative: Unchanged from yesterday's exam. Objective Data Vital Signs Vital Signs: Vital Signs - 24 hr 10/12/24 11:00 10/12/24 11:08 10/12/24 11:20 Temperature 97.2 F L Pulse Rate 77 77 73 Respiratory Rate 16 Blood Pressure 113/61 144/91 H 151/63 H Pulse Oximetry 98 Oxygen Delivery Oxygen Flow Rate 10/12/24 12:00 10/12/24 12:10 10/12/24 16:00 Temperature 98.3 F 98.4 F Pulse Rate 70 72 Respiratory Rate 18 18 Blood Pressure 145/93 H 148/64 H Pulse Oximetry 100 98 97 Oxygen Delivery Nasal Cannula Oxygen Flow Rate 1.5 10/12/24 20:00 10/12/24 20:00 10/12/24 23:26 Temperature 97.3 F L 97.3 F L Pulse Rate 71 70 Respiratory Rate 18 18 Blood Pressure 143/60 H 147/57 H Pulse Oximetry 100 99 99 Oxygen Delivery Nasal Cannula Oxygen Flow Rate 1.5 10/13/24 04:00 10/13/24 06:15 10/13/24 07:54 Temperature 97.9 F 97.9 F 98.1 F Pulse Rate 63 63 73 Respiratory Rate 18 18 20 Blood Pressure 163/56 H 163/56 H 163/64 H Pulse Oximetry 98 98 97 Oxygen Delivery Oxygen Flow Rate 10/13/24 08:05 10/13/24 08:31 Temperature Pulse Rate 66 Respiratory Rate 18 20 Blood Pressure Pulse Oximetry 97 Oxygen Delivery Nasal Cannula Oxygen Flow Rate 1.5 Intake/Output Intake/Output: Intake & Output 10/10/24 10/11/24 10/12/2425 23:59 23:59 23:59 23:59 Intake Total 1186 488 0576 Output Total 2500 0 3686 0 Balance -1190 930 -1076 0 Meds/Results Medications: Active Medications Generic Name Dose Route Start Last Admin Trade Name Freq PRN Reason Stop Dose Admin Acetaminophen 650 mg 10/09/24 00:23 Acetaminophen 325 Mg Tablet PO Q4H PRN Mild Pain (1-3) or Fever Hydrocodone Bitart/Acetaminophen 1 tab 10/09/24 00:14 10/13/24 08:30 Hydrocodone/Acetaminophen (*Crx) 7.5-325 Mg Tablet PO 1 tab QID PRN Administration Pain 7-10 Al Hydrox/Mg Hydrox/Simethicone 30 ml 10/09/24 00:23 Mag Hydrox/Al Hydrox/Simeth 30 Ml Udc PO QID PRN Dyspepsia Amlodipine Besylate 5 mg 10/09/24 09:00 10/13/24 08:29 Amlodipine Besylate 5 Mg Tablet PO 5 mg DAILY DEMETRIO Administration Apixaban 5 mg 10/09/24 09:00 10/13/24 08:29 Apixaban 5 Mg Tablet PO 5 mg Q12HR DEMETRIO Administration Atorvastatin Calcium 20 mg 10/09/24 21:00 10/12/24 21:52 Atorvastatin 20 Mg Tablet PO 20 mg HS DEMETRIO Administration Azithromycin 500 mg 10/12/24 21:00 10/12/24 21:53 Azithromycin 250 Mg Tablet PO 10/13/24 21:01 500 mg QHS DEMETRIO Administration Clopidogrel Bisulfate 75 mg 10/09/24 09:00 10/13/24 08:29 Clopidogrel Bisulfate 75 Mg Tablet PO 75 mg DAILY DEMETRIO Administration Dextrose 12.5 gm 10/09/24 00:21 Dextrose 50% 25 Gm/50 Ml Syringe IV PUSH PRN PRN Hypoglycemia Protocol Diltiazem HCl 180 mg 10/09/24 09:00 10/13/24 08:28 Diltiazem Hcl Cd 180 Mg Cap.24hr PO 180 mg DAILY DEMETRIO Administration Fluticasone/Umeclidinium/Vilanterol 1 puff 10/09/24 08:00 10/13/24 08:05 Fluticasone/Umeclidin/Vilanter 100-62.5-25 Mcg Ellipta INHALATION 1 puff DAILYRT DEMETRIO Administration Glucagon 1 mg 10/09/24 00:21 Glucagon For Inj 1 Mg Vial IM PRN PRN Hypoglycemia Protocol Glucose 15 gm 10/09/24 00:21 Glucose Oral Gel 15 Gm Of Glucse In 37.5 Gm Tube PO PRN PRN Hypoglycemia Protocol Dextrose 1,000 mls @ 100 mls/hr 10/09/24 00:21 Dextrose 5% 1,000 Ml IVPB PRN PRN Hypoglycemia Protocol Albumin Human 50 mls @ 999 mls/hr 10/09/24 13:50 Albutein IVPB 11/08/24 13:49 Q10M PRN HYPOTENSION Ceftriaxone Sodium 1 gm/ 50 mls @ 100 mls/hr 10/10/24 12:00 10/12/24 14:50 Sodium Chloride IVPB Infused Q24H DEMETRIO Infusion Insulin Aspart 3 - 6 units 10/09/24 08:00 10/13/24 08:00 Insulin Aspart (*Bkc) 100 Units/Ml SUB-Q Not Given TIDWM DEMETRIO Protocol Levothyroxine Sodium 100 mcg 10/09/24 06:30 10/13/24 06:07 Levothyroxine Sodium 100 Mcg Tablet PO 100 mcg DAILY@0630 DEMETRIO Administration Levothyroxine Sodium 75 mcg 10/09/24 06:30 10/13/24 06:07 Levothyroxine Sodium 75 Mcg Tablet PO 75 mcg DAILY@0630 DEMETRIO Administration Lidocaine 2 patch 10/10/24 15:00 10/13/24 08:31 Lidocaine 5% Patch TRANSDERM 2 patch DAILY DEMETRIO Administration Lidocaine/Prilocaine 1 each 10/09/24 13:55 10/09/24 14:25 Lidocaine/Prilocaine Cream 2.5-2.5% Tube TOPICAL 1 each WITH DIALYSIS PRN Administration for dialysis Protocol Magnesium Hydroxide 30 ml 10/09/24 00:23 Magnesium Hydroxide Susp 30 Ml Udc PO DAILY PRN Constipation Metoclopramide HCl 10 mg 10/13/24 08:00 10/13/24 08:28 Metoclopramide Hcl Inj 10 Mg/2 Ml Vial IV PUSH 10 mg TIDWM DEMETRIO Administration Montelukast Sodium 10 mg 10/09/24 09:00 10/13/24 08:28 Montelukast Sodium 10 Mg Tablet PO 10 mg DAILY DEMETRIO Administration Ondansetron HCl 4 mg 10/12/24 11:53 10/12/24 12:11 Ondansetron Inj 4 Mg/2 Ml Vial IV PUSH 4 mg Q6H PRN Administration Nausea And Vomiting Pantoprazole Sodium 40 mg 10/12/24 21:00 10/13/24 08:28 Pantoprazole Sodium Iv 40 Mg Vial IV PUSH 40 mg Q12HR DEMETRIO Administration Paroxetine HCl 40 mg 10/09/24 09:00 10/13/24 08:29 Paroxetine 20 Mg Tablet PO 40 mg DAILY DEMETRIO Administration Radiology Results: ITS Impressions Chest CT 10/10/24 09:11 IMPRESSION: 1. Moderate sized right-sided pleural effusion. Small left-sided pleural effusion. 2. Moderate-sized consolidations in the lower lobes with air bronchograms. Differential includes atelectasis or pneumonia. Recommend follow-up to resolution. 3. There are a few small patchy, bandlike and groundglass opacities scattered throughout both lungs. Differential includes a combination of atelectasis or scarring with edema or pneumonia. 4. Mildly enlarged right hilar and mediastinal lymph nodes. The findings may be due to an inflammatory or infectious process. A malignant process is felt to be less likely but not excluded. A follow up chest CT in 3 months is recommended. Abdomen/Pelvis CT 10/12/24 15:16 IMPRESSION: Retained gastric contents within the stomach, which is markedly distended with air-fluid levels. Hepatosplenomegaly. Moderate right and small left sided pleural effusions. Right sided consolidation. Labs Labs: Laboratory Results - last 24 hr 10/12/24 10/12/24 10/12/24 06:06 11:47 17:04 WBC RBC Hgb Hct MCV MCH MCHC RDW Plt Count MPV Sodium Potassium Chloride Carbon Dioxide Anion Gap BUN Creatinine Estim Creat Clear Calc Estimated GFR Glucose POC Capillary Glucose 121 H 217 H Hemoglobin A1c 5.6 Calcium Phosphorus Magnesium Albumin TSH (Reflex) 10/12/24 10/13/24 10/13/24 20:28 04:36 07:48 WBC 9.5 RBC 3.67 L Hgb 10.4 L Hct 32.9 L MCV 89.6 MCH 28.3 MCHC 31.6 L RDW 14.1 Plt Count 247 MPV 9.1 Sodium 127 L Potassium 3.7 Chloride 94 L Carbon Dioxide 28 Anion Gap 5 BUN 11 Creatinine 4.23 H Estim Creat Clear Calc 14 Estimated GFR 11 L Glucose 151 H POC Capillary Glucose 202 H 186 H Hemoglobin A1c Calcium 10.0 Phosphorus 3.2 Magnesium 1.9 Albumin 3.6 TSH (Reflex) 0.598
[2024-10-13] MEDS: cefTRIAXone 1 GM in SODIUM CHLORIDE 0.9% IV 50 ML 100 ML IVPB (11:27)
[2024-10-13] MEDS: INSULIN ASPART (*BKC) 100 UNITS/ML SUB-Q ×2 (12:10→17:20)
--- NOTE | 2024-10-13 13:17 | P.PNNP_ITS ---
Progress Note: A&P Assessment and Plan (1) End stage renal disease: Code(s): N18.6 - End stage renal disease Status: Chronic Assessment and Plan: * HD yesterday * continue Tuesday/Tuesday/Tuesday dialysis schedule while hospitalized * follow trend of electrolytes, volume status and clearance * outpatient dialysis unit = [facility] * primary therapist = Dr. Mathias (2) Shortness of breath: Code(s): R06.02 - Shortness of breath Status: Acute Assessment and Plan: * clinically improved/better * suspect multifactorial etiology: * pulmonary edema * pleural effusions * pneumonia * element of COPD * reported history of VIJAY * other(?) * complicated by chronic hypoxic respiratory failure * follows with Pulmonary as an outpatient * presumably due to COPD * on 2L oxygen by NC at baseline * admission/ER chest x-ray noted * s/p CT of chest with results reviewed * fluid removal with DUF/HD as tolerated * on antibiotics * follow respiratory status (3) Pneumonia: Qualifiers: Laterality: bilateral Lung location: lower lobe of lung Pneumonia type: due to unspecified organism Qualified Code(s): J18.9 - Pneumonia, unspecified organism Code(s): J18.9 - Pneumonia, unspecified organism Status: Acute Assessment and Plan: * as suggested by imaging to date * follow culture data * on antibiotics (4) Nausea: Code(s): R11.0 - Nausea Status: Chronic Assessment and Plan: * chronic issue * however, worse now since admission * associated with poor oral intake and abdominal discomfort as well * GI recommendations noted - suspect gastroparesis * started on IV reglan with clinical improvement * CT of A/P reviewed * continue supportive therapy (5) Hyponatremia: Code(s): E87.1 - Hypo-osmolality and hyponatremia Status: Acute Assessment and Plan: * as noted on admission * probably related due to kidney disease/ESRD, lung disease (COPD/VIJAY), chronic nausea, and possibly increased free water intake * suspect a chronic component * pneumonia and naueas may be playing a role as well(?) * should correct to some degree with dialysis * follow trend (6) Anemia: Code(s): D64.9 - Anemia, unspecified Status: Chronic Assessment and Plan: * due to ESRD * Epogen with HD * follow trend of H/H (7) Hypertension: Code(s): I10 - Essential (primary) hypertension Status: Chronic Assessment and Plan: * elevated on admission/currently * fluid removal with DUF/HD may help to some degree * resumed on home BP medications * not sure why on both amlodipine AND diltiazem... * follow trend of hemodynamics (8) Diabetes mellitus: Code(s): E11.9 - Type 2 diabetes mellitus without complications Status: Chronic Assessment and Plan: * follow accu-cheks * glycemic control per hospitalist Will continue to follow. L Subjective Date/time seen: 10/13/24 13:17 Interval history: Follow-up for end stage renal disease on hemodialysis. Dialysis treatment yesterday but treatment ended 30 minutes early due to patient request (as she was not feeling well); seen by GI yesterday and CT of A/P results noted; started on IV reglan; overall, feeling better with no nausea or abdominal discomfort at the time of my visit. Exam 2 Narrative: General: WD/WN female in NAD Heart: normal S1 and S2; no rub Lungs: coarse breath sounds; decreased at bases Abdomen: soft, nontender, nondistended, positive bowel sounds Extremities: no cyanosis or clubbing; trace edema Skin: no nodules Objective Data Vital Signs Vital Signs: Vital Signs Temp Pulse Resp BP Pulse Ox O2 Del Method O2 Flow Rate 10/13/24 12:00 98.2 F 66 16 147/52 H 100 10/13/24 08:31 20 97 Nasal Cannula 1.5 10/13/24 08:05 66 18 10/13/24 07:54 98.1 F 73 20 163/64 H 97 10/13/24 06:15 97.9 F 63 18 163/56 H 98 10/13/24 04:00 97.9 F 63 18 163/56 H 98 10/12/24 23:26 97.3 F L 70 18 147/57 H 99 10/12/24 20:00 99 Nasal Cannula 1.5 10/12/24 20:00 97.3 F L 71 18 143/60 H 100 Intake/Output Intake/Output: Intake & Output 10/10/24 10/11/24 10/12/24 10/13/24 23:59 23:59 23:59 23:59 Intake Total 6478 975 0852 1560 Output Total 2500 0 3686 50 Balance -1190 930 -1076 1510 Meds/Results Medications: Active Medications Generic Name Dose Route Start Last Admin Trade Name Freq PRN Reason Stop Dose Admin Acetaminophen 650 mg 10/09/24 00:23 Acetaminophen 325 Mg Tablet PO Q4H PRN Mild Pain (1-3) or Fever Hydrocodone Bitart/Acetaminophen 1 tab 10/09/24 00:14 10/13/24 14:44 Hydrocodone/Acetaminophen (*Crx) 7.5-325 Mg Tablet PO 1 tab QID PRN Administration Pain 7-10 Al Hydrox/Mg Hydrox/Simethicone 30 ml 10/09/24 00:23 Mag Hydrox/Al Hydrox/Simeth 30 Ml Udc PO QID PRN Dyspepsia Amlodipine Besylate 5 mg 10/09/24 09:00 10/13/24 08:29 Amlodipine Besylate 5 Mg Tablet PO 5 mg DAILY DEMETRIO Administration Apixaban 5 mg 10/09/24 09:00 10/13/24 08:29 Apixaban 5 Mg Tablet PO 5 mg Q12HR DEMETRIO Administration Atorvastatin Calcium 20 mg 10/09/24 21:00 10/12/24 21:52 Atorvastatin 20 Mg Tablet PO 20 mg HS DEMETRIO Administration Azithromycin 500 mg 10/12/24 21:00 10/12/24 21:53 Azithromycin 250 Mg Tablet PO 10/13/24 21:01 500 mg QHS DEMETRIO Administration Clopidogrel Bisulfate 75 mg 10/09/24 09:00 10/13/24 08:29 Clopidogrel Bisulfate 75 Mg Tablet PO 75 mg DAILY DEMETRIO Administration Dextrose 12.5 gm 10/09/24 00:21 Dextrose 50% 25 Gm/50 Ml Syringe IV PUSH PRN PRN Hypoglycemia Protocol Diltiazem HCl 180 mg 10/09/24 09:00 10/13/24 08:28 Diltiazem Hcl Cd 180 Mg Cap.24hr PO 180 mg DAILY DEMETRIO Administration Fluticasone/Umeclidinium/Vilanterol 1 puff 10/09/24 08:00 10/13/24 08:05 Fluticasone/Umeclidin/Vilanter 100-62.5-25 Mcg Ellipta INHALATION 1 puff DAILYRT DEMETRIO Administration Glucagon 1 mg 10/09/24 00:21 Glucagon For Inj 1 Mg Vial IM PRN PRN Hypoglycemia Protocol Glucose 15 gm 10/09/24 00:21 Glucose Oral Gel 15 Gm Of Glucse In 37.5 Gm Tube PO PRN PRN Hypoglycemia Protocol Dextrose 1,000 mls @ 100 mls/hr 10/09/24 00:21 Dextrose 5% 1,000 Ml IVPB PRN PRN Hypoglycemia Protocol Albumin Human 50 mls @ 999 mls/hr 10/09/24 13:50 Albutein IVPB 11/08/24 13:49 Q10M PRN HYPOTENSION Ceftriaxone Sodium 1 gm/ 50 mls @ 100 mls/hr 10/10/24 12:00 10/13/24 11:58 Sodium Chloride IVPB Infused Q24H DEMETRIO Infusion Insulin Aspart 3 - 6 units 10/09/24 08:00 10/13/24 17:20 Insulin Aspart (*Bkc) 100 Units/Ml SUB-Q 3 units TIDWM DEMETRIO Administration Protocol Levothyroxine Sodium 100 mcg 10/09/24 06:30 10/13/24 06:07 Levothyroxine Sodium 100 Mcg Tablet PO 100 mcg DAILY@0630 DEMETRIO Administration Levothyroxine Sodium 75 mcg 10/09/24 06:30 10/13/24 06:07 Levothyroxine Sodium 75 Mcg Tablet PO 75 mcg DAILY@0630 DEMETRIO Administration Lidocaine 2 patch 10/10/24 15:00 10/13/24 08:31 Lidocaine 5% Patch TRANSDERM 2 patch DAILY DEMETRIO Administration Lidocaine/Prilocaine 1 each 10/09/24 13:55 10/09/24 14:25 Lidocaine/Prilocaine Cream 2.5-2.5% Tube TOPICAL 1 each WITH DIALYSIS PRN Administration for dialysis Protocol Magnesium Hydroxide 30 ml 10/09/24 00:23 Magnesium Hydroxide Susp 30 Ml Udc PO DAILY PRN Constipation Metoclopramide HCl 10 mg 10/13/24 08:00 10/13/24 16:17 Metoclopramide Hcl Inj 10 Mg/2 Ml Vial IV PUSH 10 mg TIDWM DEMETRIO Administration Montelukast Sodium 10 mg 10/09/24 09:00 10/13/24 08:28 Montelukast Sodium 10 Mg Tablet PO 10 mg DAILY DEMETRIO Administration Ondansetron HCl 4 mg 10/12/24 11:53 10/12/24 12:11 Ondansetron Inj 4 Mg/2 Ml Vial IV PUSH 4 mg Q6H PRN Administration Nausea And Vomiting Pantoprazole Sodium 40 mg 10/12/24 21:00 10/13/24 08:28 Pantoprazole Sodium Iv 40 Mg Vial IV PUSH 40 mg Q12HR DEMETRIO Administration Paroxetine HCl 40 mg 10/09/24 09:00 10/13/24 08:29 Paroxetine 20 Mg Tablet PO 40 mg DAILY DEMETRIO Administration Radiology Results: ITS Impressions Chest CT 10/10/24 09:11 IMPRESSION: 1. Moderate sized right-sided pleural effusion. Small left-sided pleural effusion. 2. Moderate-sized consolidations in the lower lobes with air bronchograms. Differential includes atelectasis or pneumonia. Recommend follow-up to resolution. 3. There are a few small patchy, bandlike and groundglass opacities scattered throughout both lungs. Differential includes a combination of atelectasis or scarring with edema or pneumonia. 4. Mildly enlarged right hilar and mediastinal lymph nodes. The findings may be due to an inflammatory or infectious process. A malignant process is felt to be less likely but not excluded. A follow up chest CT in 3 months is recommended. Abdomen/Pelvis CT 10/12/24 15:16 IMPRESSION: Retained gastric contents within the stomach, which is markedly distended with air-fluid levels. Hepatosplenomegaly. Moderate right and small left sided pleural effusions. Right sided consolidation. Labs Labs: Laboratory Tests 10/13/24 04:36 10/13/24 04:36 Calcium 10.0 Phosphorus 3.2 Magnesium 1.9 Albumin 3.6 TSH (Reflex) 0.598
--- NOTE | 2024-10-13 14:18 | PCPTNOTE ---
attempted PT eval, pt and pt's partner both resting and politely requested PT come back tomorrow for evaluation, will follow
[2024-10-13] MEDS: AZITHROMYCIN 250 MG TABLET 500 MG PO (20:49)
[2024-10-13] MEDS: ATORVASTATIN 20 MG TABLET PO (20:49)
[2024-10-14] VITALS: BP 165/62; PULSE 70; RESP 18; TEMP 36.7; O2SAT 99
[2024-10-14 04:00] VITALS: BP 168/48; PULSE 72; RESP 18; TEMP 36.9; O2SAT 98
[2024-10-14 04:42] LABS: Hematocrit 32.4 % (37.0-47.0); Hemoglobin 10.4 g/dL (12.0-15.0); Mean Corpuscular HGB Conc 32.1 g/dl (32-36); Mean Corpuscular Hemoglobin 28.7 pg (26-34); Mean Corpuscular Volume 89.5 fl (80-100); Platelet Count Result 245 k/mm3 (150-375); Red Blood Count 3.62 M/mm3 (4.2-5.4); White Blood Count 6.8 K/mm3 (4.5-10.0)
[2024-10-14 05:15] LABS: Alanine Aminotransferase 7 U/L (6-35); Albumin Level 3.4 g/dL (3.5-5.1); Alkaline Phosphatase 64 U/L (38-126); Anion Gap 9 mmol/L (4-12); Aspartate Amino Transferase 16 U/L (14-36); Bilirubin,Total 0.4 mg/dL (0.2-1.3); Blood Urea Nitrogen 16 mg/dL (7-17); Calcium 10.5 mg/dL (8.4-10.2); Carbon Dioxide 25 mmol/L (22-30); Chloride 94 mmol/L (98-107); Estimated CRCL calculation 10 ml/min; Estimated Glomerular Filt Rate 8; Glucose 136 mg/dL (65-110); Magnesium 1.9 mg/dL (1.6-2.3); Potassium 3.8 mmol/L (3.4-5.0); Sodium 128 mmol/L (137-145); Total Protein 6.4 g/dL (6.3-8.2)
[2024-10-14] MEDS: LEVOTHYROXINE SODIUM 100 MCG TABLET PO (06:34)
[2024-10-14] MEDS: LEVOTHYROXINE SODIUM 75 MCG TABLET PO (06:34)
[2024-10-14 08:00] VITALS: BP 172/65; PULSE 75; RESP 16; TEMP 36.6; O2SAT 100; O2SAT 98
[2024-10-14] MEDS: FLUTICASONE/UMECLIDIN/VILANTER 100-62.5-25 MCG ELLIPTA 1 PUFF INHALATION (08:29)
[2024-10-14] MEDS: MONTELUKAST SODIUM 10 MG TABLET PO (08:31)
[2024-10-14 08:32] VITALS: O2SAT 98
[2024-10-14] MEDS: APIXABAN 5 MG TABLET PO (08:32)
[2024-10-14] MEDS: dilTIAZem HCL CD 180 MG CAP.24HR PO (08:32)
[2024-10-14] MEDS: METOCLOPRAMIDE HCL INJ 10 MG/2 ML VIAL IV PUSH (08:32)
[2024-10-14] MEDS: CLOPIDOGREL BISULFATE 75 MG TABLET PO (08:32)
--- NOTE | 2024-10-14 09:16 | PCOTNOTE ---
Attempted to see patient for OT evaluation this AM. Patient declining due to not feeling well. Will continue to attempt.
--- NOTE | 2024-10-14 09:23 | PCPTNOTE ---
attempted PT eval, pt declined d/t not feeling well, pt also declined evaluation yesterday, will follow
--- NOTE | 2024-10-14 10:43 | P.PNGI_ITS ---
Progress Note: A&P Assessment and Plan (1) Gastroparesis: Code(s): K31.84 - Gastroparesis Status: Acute Assessment and Plan: The patient is completing treatment for community-acquired pneumonia. While she responded to intravenous metoclopramide, the long-term efficacy of the oral form is uncertain. For outpatient use, intranasal metoclopramide (GIMOTI) is an ideal option compared with oral metoclopramide, which may not be absorbed due to severe gastroparesis. The patient should take one spray in one nostril 15 minutes before meals. This plan was discussed and approved by the hospitalist decontaminator, a nd a prescription will be issued. Subjective Date/time seen: 10/14/24 10:43 Objective Data Vital Signs Vital Signs: Vital Signs - 24 hr 10/13/24 12:00 10/13/24 16:00 10/13/24 20:00 Temperature 98.2 F 98.2 F 98.0 F Pulse Rate 66 64 67 Respiratory Rate 16 18 18 Blood Pressure 147/52 H 150/66 H 149/53 H Pulse Oximetry 100 98 98 Oxygen Delivery Oxygen Flow Rate 10/13/24 21:07 10/14/24 00:00 10/14/24 04:00 Temperature 98.0 F 98.4 F Pulse Rate 70 72 Respiratory Rate 18 18 Blood Pressure 165/62 H 168/48 H Pulse Oximetry 98 99 98 Oxygen Delivery Nasal Cannula Oxygen Flow Rate 1 10/14/24 08:00 10/14/24 08:32 Temperature 97.8 F Pulse Rate 75 Respiratory Rate 16 Blood Pressure 172/65 H Pulse Oximetry 100 98 Oxygen Delivery Nasal Cannula Oxygen Flow Rate 1.5 Intake/Output Intake/Output: Intake & Output 10/11/24 10/12/24 10/13/24 10/14/24 23:59 23:59 23:59 23:59 Intake Total 930 2610 3140 120 Output Total 0 3686 50 0 Balance 930 -1076 3090 120 Meds/Results Medications: Active Medications Generic Name Dose Route Start Last Admin Trade Name Freq PRN Reason Stop Dose Admin Acetaminophen 650 mg 10/09/24 00:23 Acetaminophen 325 Mg Tablet PO Q4H PRN Mild Pain (1-3) or Fever Hydrocodone Bitart/Acetaminophen 1 tab 10/09/24 00:14 10/13/24 20:49 Hydrocodone/Acetaminophen (*Crx) 7.5-325 Mg Tablet PO 1 tab QID PRN Administration Pain 7-10 Al Hydrox/Mg Hydrox/Simethicone 30 ml 10/09/24 00:23 Mag Hydrox/Al Hydrox/Simeth 30 Ml Udc PO QID PRN Dyspepsia Amlodipine Besylate 5 mg 10/09/24 09:00 10/14/24 08:31 Amlodipine Besylate 5 Mg Tablet PO 5 mg DAILY DEMETRIO Administration Apixaban 5 mg 10/09/24 09:00 10/14/24 08:32 Apixaban 5 Mg Tablet PO 5 mg Q12HR DEMETRIO Administration Atorvastatin Calcium 20 mg 10/09/24 21:00 10/13/24 20:49 Atorvastatin 20 Mg Tablet PO 20 mg HS DEMETRIO Administration Clopidogrel Bisulfate 75 mg 10/09/24 09:00 10/14/24 08:32 Clopidogrel Bisulfate 75 Mg Tablet PO 75 mg DAILY DEMETRIO Administration Dextrose 12.5 gm 10/09/24 00:21 Dextrose 50% 25 Gm/50 Ml Syringe IV PUSH PRN PRN Hypoglycemia Protocol Diltiazem HCl 180 mg 10/09/24 09:00 10/14/24 08:32 Diltiazem Hcl Cd 180 Mg Cap.24hr PO 180 mg DAILY DEMETRIO Administration Fluticasone/Umeclidinium/Vilanterol 1 puff 10/09/24 08:00 10/14/24 08:29 Fluticasone/Umeclidin/Vilanter 100-62.5-25 Mcg Ellipta INHALATION 1 puff DAILYRT DEMETRIO Administration Glucagon 1 mg 10/09/24 00:21 Glucagon For Inj 1 Mg Vial IM PRN PRN Hypoglycemia Protocol Glucose 15 gm 10/09/24 00:21 Glucose Oral Gel 15 Gm Of Glucse In 37.5 Gm Tube PO PRN PRN Hypoglycemia Protocol Dextrose 1,000 mls @ 100 mls/hr 10/09/24 00:21 Dextrose 5% 1,000 Ml IVPB PRN PRN Hypoglycemia Protocol Albumin Human 50 mls @ 999 mls/hr 10/09/24 13:50 Albutein IVPB 11/08/24 13:49 Q10M PRN HYPOTENSION Ceftriaxone Sodium 1 gm/ 50 mls @ 100 mls/hr 10/10/24 12:00 10/13/24 11:58 Sodium Chloride IVPB Infused Q24H DEMETRIO Infusion Insulin Aspart 3 - 6 units 10/09/24 08:00 10/14/24 08:32 Insulin Aspart (*Bkc) 100 Units/Ml SUB-Q Not Given TIDWM [facility] Protocol Levothyroxine Sodium 100 mcg 10/09/24 06:30 10/14/24 06:34 Levothyroxine Sodium 100 Mcg Tablet PO 100 mcg DAILY@0630 DEMETRIO Administration Levothyroxine Sodium 75 mcg 10/09/24 06:30 10/14/24 06:34 Levothyroxine Sodium 75 Mcg Tablet PO 75 mcg DAILY@0630 DEMETRIO Administration Lidocaine 2 patch 10/10/24 15:00 10/13/24 20:51 Lidocaine 5% Patch TRANSDERM 2 patch DAILY DEMETRIO Administration Lidocaine/Prilocaine 1 each 10/09/24 13:55 10/09/24 14:25 Lidocaine/Prilocaine Cream 2.5-2.5% Tube TOPICAL 1 each WITH DIALYSIS PRN Administration for dialysis Protocol Magnesium Hydroxide 30 ml 10/09/24 00:23 Magnesium Hydroxide Susp 30 Ml Udc PO DAILY PRN Constipation Metoclopramide HCl 10 mg 10/13/24 08:00 10/14/24 08:32 Metoclopramide Hcl Inj 10 Mg/2 Ml Vial IV PUSH 10 mg TIDWM DEMETRIO Administration Montelukast Sodium 10 mg 10/09/24 09:00 10/14/24 08:31 Montelukast Sodium 10 Mg Tablet PO 10 mg DAILY DEMETRIO Administration Ondansetron HCl 4 mg 10/12/24 11:53 10/12/24 12:11 Ondansetron Inj 4 Mg/2 Ml Vial IV PUSH 4 mg Q6H PRN Administration Nausea And Vomiting Paroxetine HCl 40 mg 10/09/24 09:00 10/14/24 08:32 Paroxetine 20 Mg Tablet PO 40 mg DAILY DEMETRIO Administration Radiology Results: ITS Impressions Chest CT 10/10/24 09:11 IMPRESSION: 1. Moderate sized right-sided pleural effusion. Small left-sided pleural effusion. 2. Moderate-sized consolidations in the lower lobes with air bronchograms. Differential includes atelectasis or pneumonia. Recommend follow-up to resolution. 3. There are a few small patchy, bandlike and groundglass opacities scattered throughout both lungs. Differential includes a combination of atelectasis or scarring with edema or pneumonia. 4. Mildly enlarged right hilar and mediastinal lymph nodes. The findings may be due to an inflammatory or infectious process. A malignant process is felt to be less likely but not excluded. A follow up chest CT in 3 months is recommended. Abdomen/Pelvis CT 10/12/24 15:16 IMPRESSION: Retained gastric contents within the stomach, which is markedly distended with air-fluid levels. Hepatosplenomegaly. Moderate right and small left sided pleural effusions. Right sided consolidation. Labs Labs: Laboratory Results - last 24 hr 10/13/24 10/13/24 10/13/24 12:01 17:08 20:47 WBC RBC Hgb Hct MCV MCH MCHC RDW Plt Count MPV Sodium Potassium Chloride Carbon Dioxide Anion Gap BUN Creatinine Estim Creat Clear Calc Estimated GFR Glucose POC Capillary Glucose 280 H 209 H 152 H Calcium Phosphorus Magnesium Total Bilirubin AST ALT Alkaline Phosphatase Total Protein Albumin 10/13/24 10/14/24 10/14/24 21:49 04:01 08:00 WBC 6.8 RBC 3.62 L Hgb 10.4 L Hct 32.4 L MCV 89.5 MCH 28.7 MCHC 32.1 RDW 14.2 Plt Count 245 MPV 9.3 Sodium 128 L Potassium 3.8 Chloride 94 L Carbon Dioxide 25 Anion Gap 9 BUN 16 Creatinine 5.65 H Estim Creat Clear Calc 10 Estimated GFR 8 L Glucose 136 H POC Capillary Glucose 147 H 138 H Calcium 10.5 H Phosphorus 4.4 Magnesium 1.9 Total Bilirubin 0.4 AST 16 ALT 7 Alkaline Phosphatase 64 Total Protein 6.4 Albumin 3.4 L
--- NOTE | 2024-10-14 10:52 | P.PNNP_ITS ---
Progress Note: A&P Assessment and Plan (1) End stage renal disease: Code(s): N18.6 - End stage renal disease Status: Chronic Assessment and Plan: * HD tomorrow * continue Tuesday/Tuesday/Tuesday dialysis schedule while hospitalized * follow trend of electrolytes, volume status and clearance * outpatient dialysis unit = [facility] * primary university administrative assistant = Dr. Mathias (2) Shortness of breath: Code(s): R06.02 - Shortness of breath Status: Acute Assessment and Plan: * clinically improved/better * suspect multifactorial etiology: * pulmonary edema * pleural effusions * pneumonia * element of COPD * reported history of VIJAY * other(?) * complicated by chronic hypoxic respiratory failure * follows with Pulmonary as an outpatient * presumably due to COPD * on 2L oxygen by NC at baseline * admission/ER chest x-ray noted * s/p CT of chest with results reviewed * fluid removal with DUF/HD as tolerated * on antibiotics * follow respiratory status (3) Pneumonia: Qualifiers: Laterality: bilateral Lung location: lower lobe of lung Pneumonia type: due to unspecified organism Qualified Code(s): J18.9 - Pneumonia, unspecified organism Code(s): J18.9 - Pneumonia, unspecified organism Status: Acute Assessment and Plan: * as suggested by imaging to date * follow culture data - negative to date * on antibiotics (4) Nausea: Code(s): R11.0 - Nausea Status: Chronic Assessment and Plan: * doing better * chronic issue * however, became worse since admission * associated with poor oral intake and abdominal discomfort as well * GI recommendations noted - suspect gastroparesis * on IV reglan with clinical improvement * CT of A/P reviewed * continue supportive therapy (5) Hyponatremia: Code(s): E87.1 - Hypo-osmolality and hyponatremia Status: Acute Assessment and Plan: * as noted on admission * probably related due to kidney disease/ESRD, lung disease (COPD/VIJAY), chronic nausea, and possibly increased free water intake * suspect a chronic component * pneumonia and naueas may be playing a role as well(?) * should correct to some degree with dialysis * follow trend (6) Anemia: Code(s): D64.9 - Anemia, unspecified Status: Chronic Assessment and Plan: * due to ESRD * Epogen with HD * follow trend of H/H (7) Hypertension: Code(s): I10 - Essential (primary) hypertension Status: Chronic Assessment and Plan: * elevated on admission/currently * fluid removal with DUF/HD may help to some degree * resumed on home BP medications * not sure why on both amlodipine AND diltiazem... * follow trend of hemodynamics (8) Diabetes mellitus: Code(s): E11.9 - Type 2 diabetes mellitus without complications Status: Chronic Assessment and Plan: * follow accu-cheks * glycemic control per hospitalist Will continue to follow. L Subjective Date/time seen: 10/14/24 10:52 Interval history: Follow-up for end stage renal disease on hemodialysis. Appears to be doing reasonably well at the time of my visit; no further nausea or abdominal discomfort since initiation of reglan therapy; breathing/shortness of breath appears stable if not better; no apparent distress noted; no other issues/events overnight or earlier this morning. Exam 2 Narrative: General: WD/WN female in NAD Heart: normal S1 and S2; no rub Lungs: coarse breath sounds; decreased at bases Abdomen: soft, nontender, nondistended, positive bowel sounds Extremities: no cyanosis or clubbing; trace edema Skin: warm and dry Objective Data Vital Signs Vital Signs: Vital Signs Temp Pulse Resp BP Pulse Ox O2 Del Method O2 Flow Rate 10/14/24 08:32 98 Nasal Cannula 1.5 10/14/24 08:00 98 Nasal Cannula 2 10/14/24 08:00 97.8 F 75 16 172/65 H 100 10/14/24 04:00 98.4 F 72 18 168/48 H 98 10/14/24 00:00 98.0 F 70 18 165/62 H 99 10/13/24 21:07 98 Nasal Cannula 1 10/13/24 20:00 98.0 F 67 18 149/53 H 98 10/13/24 16:00 98.2 F 64 18 150/66 H 98 Intake/Output Intake/Output: Intake & Output 10/11/24 10/12/24 10/13/24 10/14/24 23:59 23:59 23:59 23:59 Intake Total 930 2610 3140 120 Output Total 0 3686 50 0 Balance 930 -1076 3090 120 Meds/Results Medications: Active Medications Generic Name Dose Route Start Last Admin Trade Name Freq PRN Reason Stop Dose Admin Acetaminophen 650 mg 10/09/24 00:23 Acetaminophen 325 Mg Tablet PO Q4H PRN Mild Pain (1-3) or Fever Hydrocodone Bitart/Acetaminophen 1 tab 10/09/24 00:14 10/13/24 20:49 Hydrocodone/Acetaminophen (*Crx) 7.5-325 Mg Tablet PO 1 tab QID PRN Administration Pain 7-10 Al Hydrox/Mg Hydrox/Simethicone 30 ml 10/09/24 00:23 Mag Hydrox/Al Hydrox/Simeth 30 Ml Udc PO QID PRN Dyspepsia Amlodipine Besylate 5 mg 10/09/24 09:00 10/14/24 08:31 Amlodipine Besylate 5 Mg Tablet PO 5 mg DAILY DEMETRIO Administration Apixaban 5 mg 10/09/24 09:00 10/14/24 08:32 Apixaban 5 Mg Tablet PO 5 mg Q12HR DEMETRIO Administration Atorvastatin Calcium 20 mg 10/09/24 21:00 10/13/24 20:49 Atorvastatin 20 Mg Tablet PO 20 mg HS DEMETRIO Administration Clopidogrel Bisulfate 75 mg 10/09/24 09:00 10/14/24 08:32 Clopidogrel Bisulfate 75 Mg Tablet PO 75 mg DAILY DEMETRIO Administration Dextrose 12.5 gm 10/09/24 00:21 Dextrose 50% 25 Gm/50 Ml Syringe IV PUSH PRN PRN Hypoglycemia Protocol Diltiazem HCl 180 mg 10/09/24 09:00 10/14/24 08:32 Diltiazem Hcl Cd 180 Mg Cap.24hr PO 180 mg DAILY DEMETRIO Administration Fluticasone/Umeclidinium/Vilanterol 1 puff 10/09/24 08:00 10/14/24 08:29 Fluticasone/Umeclidin/Vilanter 100-62.5-25 Mcg Ellipta INHALATION 1 puff DAILYRT DEMETRIO Administration Glucagon 1 mg 10/09/24 00:21 Glucagon For Inj 1 Mg Vial IM PRN PRN Hypoglycemia Protocol Glucose 15 gm 10/09/24 00:21 Glucose Oral Gel 15 Gm Of Glucse In 37.5 Gm Tube PO PRN PRN Hypoglycemia Protocol Dextrose 1,000 mls @ 100 mls/hr 10/09/24 00:21 Dextrose 5% 1,000 Ml IVPB PRN PRN Hypoglycemia Protocol Albumin Human 50 mls @ 999 mls/hr 10/09/24 13:50 Albutein IVPB 11/08/24 13:49 Q10M PRN HYPOTENSION Ceftriaxone Sodium 1 gm/ 50 mls @ 100 mls/hr 10/10/24 12:00 10/13/24 11:58 Sodium Chloride IVPB Infused Q24H DEMETRIO Infusion Insulin Aspart 3 - 6 units 10/09/24 08:00 10/14/24 08:32 Insulin Aspart (*Bkc) 100 Units/Ml SUB-Q Not Given TIDWM [facility] Protocol Levothyroxine Sodium 100 mcg 10/09/24 06:30 10/14/24 06:34 Levothyroxine Sodium 100 Mcg Tablet PO 100 mcg DAILY@0630 DEMETRIO Administration Levothyroxine Sodium 75 mcg 10/09/24 06:30 10/14/24 06:34 Levothyroxine Sodium 75 Mcg Tablet PO 75 mcg DAILY@0630 DEMETRIO Administration Lidocaine 2 patch 10/10/24 15:00 10/13/24 20:51 Lidocaine 5% Patch TRANSDERM 2 patch DAILY DEMETRIO Administration Lidocaine/Prilocaine 1 each 10/09/24 13:55 10/09/24 14:25 Lidocaine/Prilocaine Cream 2.5-2.5% Tube TOPICAL 1 each WITH DIALYSIS PRN Administration for dialysis Protocol Magnesium Hydroxide 30 ml 10/09/24 00:23 Magnesium Hydroxide Susp 30 Ml Udc PO DAILY PRN Constipation Metoclopramide HCl 10 mg 10/13/24 08:00 10/14/24 08:32 Metoclopramide Hcl Inj 10 Mg/2 Ml Vial IV PUSH 10 mg TIDWM DEMETRIO Administration Montelukast Sodium 10 mg 10/09/24 09:00 10/14/24 08:31 Montelukast Sodium 10 Mg Tablet PO 10 mg DAILY DEMETRIO Administration Ondansetron HCl 4 mg 10/12/24 11:53 10/12/24 12:11 Ondansetron Inj 4 Mg/2 Ml Vial IV PUSH 4 mg Q6H PRN Administration Nausea And Vomiting Paroxetine HCl 40 mg 10/09/24 09:00 10/14/24 08:32 Paroxetine 20 Mg Tablet PO 40 mg DAILY DEMETRIO Administration Radiology Results: ITS Impressions Chest CT 10/10/24 09:11 IMPRESSION: 1. Moderate sized right-sided pleural effusion. Small left-sided pleural effusion. 2. Moderate-sized consolidations in the lower lobes with air bronchograms. Differential includes atelectasis or pneumonia. Recommend follow-up to resolution. 3. There are a few small patchy, bandlike and groundglass opacities scattered throughout both lungs. Differential includes a combination of atelectasis or scarring with edema or pneumonia. 4. Mildly enlarged right hilar and mediastinal lymph nodes. The findings may be due to an inflammatory or infectious process. A malignant process is felt to be less likely but not excluded. A follow up chest CT in 3 months is recommended. Abdomen/Pelvis CT 10/12/24 15:16 IMPRESSION: Retained gastric contents within the stomach, which is markedly distended with air-fluid levels. Hepatosplenomegaly. Moderate right and small left sided pleural effusions. Right sided consolidation. Labs Labs: Laboratory Tests 10/14/24 04:01 10/14/24 04:01 Calcium 10.5 H Phosphorus 4.4 Magnesium 1.9 Total Bilirubin 0.4 AST 16 ALT 7 Alkaline Phosphatase 64 Total Protein 6.4 Albumin 3.4 L
--- NOTE | 2024-10-14 11:39 | PCPTNOTE ---
attempted eval again, pt declined again and stated she is leaving today and does not have interest in therapy
--- NOTE | 2024-10-14 11:50 | PM.DS ---
DS: Admitting Diagnosis Discharge Date 10/14/2024 Admitting Diagnosis Shortness of breath DS: Discharge Diagnosis Discharge Diagnosis (1) COPD (chronic obstructive pulmonary disease): Qualifiers: COPD type: COPD with acute exacerbation Qualified Code(s): J44.1 - Chronic obstructive pulmonary disease with (acute) exacerbation Code(s): J44.9 - Chronic obstructive pulmonary disease, unspecified Status: Acute (2) ESRD (end stage renal disease) on dialysis: Code(s): N18.6 - End stage renal disease; Z99.2 - Dependence on renal dialysis Status: Acute Assessment and Plan: patient will have scheduled HD (3) Diabetes mellitus: Code(s): E11.9 - Type 2 diabetes mellitus without complications Status: Chronic Assessment and Plan: will resume home medications and monitor with sliding scale DS: Summary Hospital Course Hospital Course: 64-year-old female with shortness of breath over the past day. She has gotten acutely short of breath today. No chest pain. She is on home oxygen at 2 L nasal cannula 24 hours a day. She has COPD and CHF. She is a dialysis patient and she gets dialysis Tuesday and got it done this morning. She was short of breath prior to dialysis. MD elicited complaint: shortness of breath.Pertinent past history: COPD, congestive heart failure and other ( End-stage renal disease with dialysis Tuesday.Patient with shortness of breath to further evaluate patient had chest x-ray confluent opacities in the lower hemithoraces. Differential includes a combination of pleural fluid with adjacent atelectasis and/or consolidation. An underlying mass is possible. Consider a chest CT for further assessment. ER physician has ordered Ct of chest with contrast, of chest and patient has ESRD on HD and will need HD right after the CT of chest with contrast. 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 Discussed with Gastroenterology who agrees with discharging the patient with oral or nasal reglan. On the day of discharge, the patient was seen and examined. Vital signs were stable. Physical exam were stable and labs were reviewed at length. Discharge instructions, medications, and follow-up appointments were discussed with the patient at length and all day questions were answered. ER warnings were given. The patient will be discharged with levofloxacin for 3 days. Status at Discharge Cognitive/behavioral status at discharge: Stable Time Spent with Patient Time attestation: Total time spent providing and/or coordinating discharge services: 45 minutes Exam Narrative: Patient is comfortable, NAD HEENT: eyes are clear and none icteric LUNGS:CTA HEART: RR S1S2 ABD: BS+, Soft and nontender Lower extremities: no edema SKIN: nonjaundiced Neuro: grossly intact. DS: Data Data Completed and Pending Labs on day of discharge: Labs from last 24 hours 10/14/24 10/14/24 10/14/24 11:21 08:00 04:01 WBC 6.8 RBC 3.62 L Hgb 10.4 L Hct 32.4 L MCV 89.5 MCH 28.7 MCHC 32.1 RDW 14.2 Plt Count 245 MPV 9.3 Sodium 128 L Potassium 3.8 Chloride 94 L Carbon Dioxide 25 Anion Gap 9 BUN 16 Creatinine 5.65 H Estim Creat Clear Calc 10 Estimated GFR 8 L Glucose 136 H POC Capillary Glucose 191 H 138 H Calcium 10.5 H Phosphorus 4.4 Magnesium 1.9 Total Bilirubin 0.4 AST 16 ALT 7 Alkaline Phosphatase 64 Total Protein 6.4 Albumin 3.4 L 10/13/24 10/13/24 10/13/24 21:49 20:47 17:08 WBC RBC Hgb Hct MCV MCH MCHC RDW Plt Count MPV Sodium Potassium Chloride Carbon Dioxide Anion Gap BUN Creatinine Estim Creat Clear Calc Estimated GFR Glucose POC Capillary Glucose 147 H 152 H 209 H Calcium Phosphorus Magnesium Total Bilirubin AST ALT Alkaline Phosphatase Total Protein Albumin 10/13/24 12:01 WBC RBC Hgb Hct MCV MCH MCHC RDW Plt Count MPV Sodium Potassium Chloride Carbon Dioxide Anion Gap BUN Creatinine Estim Creat Clear Calc Estimated GFR Glucose POC Capillary Glucose 280 H Calcium Phosphorus Magnesium Total Bilirubin AST ALT Alkaline Phosphatase Total Protein Albumin Imaging Radiologist's impression: ITS Impressions Chest CT 10/10/24 09:11 IMPRESSION: 1. Moderate sized right-sided pleural effusion. Small left-sided pleural effusion. 2. Moderate-sized consolidations in the lower lobes with air bronchograms. Differential includes atelectasis or pneumonia. Recommend follow-up to resolution. 3. There are a few small patchy, bandlike and groundglass opacities scattered throughout both lungs. Differential includes a combination of atelectasis or scarring with edema or pneumonia. 4. Mildly enlarged right hilar and mediastinal lymph nodes. The findings may be due to an inflammatory or infectious process. A malignant process is felt to be less likely but not excluded. A follow up chest CT in 3 months is recommended. Abdomen/Pelvis CT 10/12/24 15:16 IMPRESSION: Retained gastric contents within the stomach, which is markedly distended with air-fluid levels. Hepatosplenomegaly. Moderate right and small left sided pleural effusions. Right sided consolidation. Discharge Plan Discharge Attending physician on discharge: Ventura Greene Consulting providers: Fernando Rich; Joni Ray Discharging Clinician: Ventura Greene Anticipated Discharge Date/Time: 10/14/24 11:31 Patient Disposition: Home Activity: as tolerated Diet: renal Discharge Instructions: Follow-up with nephrology for dialysis For any concerning symptoms please return to ED Please complete the antibiotic for 3 days (every other day). Per Dr. Hsu, eat 5-6 small meals throughout the day. Follow a bland diet. Patient Instructions: Antibiotic Form, Clopidogrel (By mouth), Apixaban (By mouth), Heart Failure (GEN) Patient Language: Sami Stand Alone Forms: General Discharge Information Follow-up/Referrals: Fernando Rich MD [Physician, Nephrology] Jabari Banda MD [Primary Care Provider, Internal Medicine] Referral Note: Patient was treated for pneumonia in the hospital Discharge Medications: New levofloxacin 500 mg tablet 500 mg PO .q48 Qty: 3 0RF Rx Instructions: Please take the antibiotic every 48 hours. Continued montelukast 10 mg tablet 10 mg PO DAILY Deepa-Vikash 0.8 mg tablet 0.8 tablet PO DAILY Breztri Aerosphere 160-9-4.8 mcg/actuation HFA aerosol inhaler 2 inh INHALATION BID levothyroxine 175 mcg tablet 175 mcg PO DAILY atorvastatin 20 mg tablet 20 mg PO HS clopidogrel 75 mg tablet 75 mg PO DAILY omeprazole 40 mg capsule,delayed release(DR/EC) 40 mg PO DAILY hydrocodone-acetaminophen 7.5-325 mg tablet 1 tablet PO QID PRN (Reason: Pain) paroxetine HCl 40 mg tablet 40 mg PO DAILY insulin asp prt-insulin aspart [Novolog Mix 70-30FlexPen U-100] 100 unit/mL (70-30) insulin pen 65 unit SUBCUT BID Patient Comments: Patient states she is pretty sure they changed her dose to 35 units. sevelamer carbonate 800 mg tablet See Rx Instructions .ROUTE .COMPLEX Rx Instructions: take as prescribed amlodipine 5 mg tablet 5 mg PO DAILY Eliquis 5 mg tablet 5 mg PO Q12H diltiazem HCl [DILT-XR] 180 mg capsule,ext.rel 24h degradable 180 mg PO Q24H metoclopramide HCl 10 mg tablet 10 mg PO PRN ondansetron 4 mg tablet,disintegrating 4 mg PO PRN umeclidinium-vilanterol [Anoro Ellipta] 62.5-25 mcg/actuation blister with device 1 inh INHALATION Q24H Date of admission: 10/09/24 08:57 Primary Care Provider: Jabari Banda Admitting Provider: Bladimir Lindsey Attending physician on admission: Bladimir Lindsey Condition: Stable
[2024-10-14 11:52] VITALS: BP 146/52; PULSE 72; RESP 18; TEMP 36.4; O2SAT 100
== END 2024-10-14 12:45 | disposition home or self-care (01) | DRG 193 ==
LOC: ANHIMU 10-10 09:24 → ANH2MED 10-10 17:21
PROVIDERS: Family Medicine; Internal Medicine; Internal Medicine Nephrology; Admitting Provider Internal Medicine; PCP Internal Medicine; Visit Provider General Practice
DX: J18.9 Pneumonia, unspecified organism (principal); N18.6 End stage renal disease; J44.1 Chronic obstructive pulmonary disease with (acute) exacerbation; I13.2 Hypertensive heart and chronic kidney disease with heart failure and with stage 5 chronic kidney disease, or end stage renal disease; J96.11 Chronic respiratory failure with hypoxia; E87.1 Hypo-osmolality and hyponatremia; J44.0 Chronic obstructive pulmonary disease with (acute) lower respiratory infection; I50.9 Heart failure, unspecified; G47.33 Obstructive sleep apnea (adult) (pediatric); E03.9 Hypothyroidism, unspecified; E11.43 Type 2 diabetes mellitus with diabetic autonomic (poly)neuropathy; K31.84 Gastroparesis; I25.10 Atherosclerotic heart disease of native coronary artery without angina pectoris; D63.1 Anemia in chronic kidney disease; E11.22 Type 2 diabetes mellitus with diabetic chronic kidney disease; Z99.2 Dependence on renal dialysis; Z99.81 Dependence on supplemental oxygen; Z90.49 Acquired absence of other specified parts of digestive tract; Z87.891 Personal history of nicotine dependence; Z86.73 Personal history of transient ischemic attack (TIA), and cerebral infarction without residual deficits
CPT/HCPCS: 36415; 71260; 74176; 80053; 80069; 82948; 83036; 83735; 84100; 84443; 84484; 85025; 85027; 85610; 86706; 87340; 87641; 94640; A9270; G0257; J0696; J1644; J1815; J1938; J2405; J2470; J2765; J7030; Q5105; Q9967

== ENCOUNTER 2024-10-16 20:27 | Emergency (ER) | payer MEDICARE, MEDICAID, SELFPAY ==
--- NOTE | ~2024-10-16 | XR_ITS ---
XR chest 1V portable 10/16/2024 21:56 Indication: Shortness of breath Procedure: AP portable chest Comparison: 12/18/2019 Findings: Borderline heart size. Bilateral interstitial infiltrates. Small left pleural effusion. No pneumothorax. Impression: 1: Bilateral interstitial infiltrates may represent edema or pneumonia. 2: Small left pleural effusion. 3: Lucency at the right costophrenic recess most likely artifact. Recommend attention to this on subsequent examination. Reviewed, dictated and finalized at location O. Impression: 1: Bilateral interstitial infiltrates may represent edema or pneumonia. 2: Small left pleural effusion. 3: Lucency at the right costophrenic recess most likely artifact. Recommend att ention to this on subsequent examination.
--- OUTSIDE RECORDS SUMMARY | 2024-10-16 20:29 | XMS_ITS | Clinical Summary ---
Author Organization [facility] Address [address] [place] [address] Care Team Providers Care Row Boss Name Role Phone Jabari Banda MD Primary Care Provider [phone] Christine Stevens RN Unavailable [phone] Mily Vance AUTOMOTIVE PARTS COORDINATOR-TRAFFIC LINE PAINTER Unavailable + Darby Del Real RN Unavailable Unavailable Kaity Bowens Unavailable Unavailable Source Comments [facility],non-owned Affiliates and Associated Physician Practices is amultiple site organization consisting of ambulatory clinics and hospital sitesin [place], [place]. This disclosure is being madepursuant to the Care Everywhere program and may not contain all information available regarding this patient. Last updated 17.[facility] [employer] Allergies No known active allergies Medications * [...] failure 016 Overview (08/22/2015): Added per clinical risk management specialist per dc summary Dr. Lee . 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 Gender Identity Not on file Sexual [...] 5:40 AM CDT) Hepatitis C Virus Quantitation [id number] IU/mL 05/07/2015 9:18 AM CDT [facility] Hepatitis C Virus Log 10 6.037 log10 IU/mL 05/07/2015 9:18 AM CDT [facility] ([facility]) Test Information Comment 05/07/2015 9:18 AM CDT [facility] Comment: The quantitative range of the assay [...] CDT 05/04/2015 5:46 AM CDT Narrative [facility] ([facility]) - 05/07/2015 9:18 AM CDT Performed at: [address] [place] [id number] Drag Seiner: Conrado Keane MD, Phone: [phone] Nunu Reynoso MD LAB - CHEMISTRY ORDERABLES Final Result [facility]) [address] [place] [address] from Last 3 Months or Most Recently [...] 2:49 PM 05/01/2015 3:17 PM Care Teams Row Boss Relationship Specialty Start Date End Date Jabari Banda MD [address] [place] [address] PCP - General Internal Medicine 05/01/15 Christine Stevens, RN Student Development Coordinator 05/02/15 Mily Vance, AUTOMOTIVE PARTS COORDINATOR-TRAFFIC LINE PAINTER [address] [place] [id number] Registered Nurse - Cardiopulmonary Rehab 08/04/15 Darby Del Real RN Registered Nurse - Cardiopulmonary Rehab 08/04/15 Kaity Bowens Dialysis Liaison 08/14/15
--- OUTSIDE RECORDS SUMMARY | 2024-10-16 20:29 | XMS_ITS | Encounter Summary ---
Author Organization [facility] Address [address] [place] [address] Care Team Providers Care Unemployment Specialist Name Role Phone Jabari Banda MD Primary Care Provider [phone] Christine Stevens RN Unavailable [phone] Mily Vance RADAR AIR TRAFFIC CONTROLLER-DRAWER WAXER Unavailable + Darby Del Real RN Unavailable Unavailable Kaity Bowens Unavailable Unavailable Encounter Details Date Type Department Care Team (Late st Contact Info) Description 08/11/2015 Transitional Care [facility] DISEASE MANAGEMENT [address] [place] [address] Darby Del Real RN Social History Tobacco Use Types Packs/Day Years Used Date Smoking Tobacco: Former Cigarettes Q uit: 05/02/2015 Alcohol Use Standard Drinks/Week Comments Not Asked 0 (1 standard drink = 0.6 oz pur e alcohol) Comments No Sex and Gender Information Value Date Recorded Sex Assigned at Not on file 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
--- OUTSIDE RECORDS SUMMARY | 2024-10-16 20:29 | XMS_ITS | Clinical Summary ---
Author Organization [facility] Address [address] [place] [address] Phone Care Team Providers Care Unbundler Name Role Phone Provider, None Primary Care Provider Unavailabl e Allergies No known active allergies Medications Eliquis 5 MG Tablet Take 5 mg by mouth 2 times daily. 4 Active B Zaggvwm-J-Czrvr Acid (Deepa-Vikash Rx) 1 MG Tablet Take [...] Years Used Date Smoking Tobacco: Never Assessed [facility] Utilities Answer Date Recorded In the past [...] any time in the past 12 m [facility], were you homeless or living in a half-way (including now)? Patient declined 03/13/2024 Comments Unknown Sex and Gender Information Value Date Recorded Sex Assigned at Not on file Legal Sex Female 9:03 AM IMPLEMENTATION LEAD Gender Identity Not on file Sexual Orientation Not on file Last Filed Vital Signs Vital Sign Reading Time Taken Comments Blood Pressure 184/65 03/15/2024 2:00 PM IMPLEMENTATION LEAD Pulse 74 03/15/2024 2:00 PM IMPLEMENTATION LEAD Temperature 36.5 C (97.7 F) 03/15/2024 2:00 PM IMPLEMENTATION LEAD Respiratory Rate 18 03/15/2024 2:00 PM IMPLEMENTATION LEAD Oxygen Saturation 97% 03/15/2024 8:02 AM IMPLEMENTATION LEAD Inhaled Oxygen Concentration - - Weight 97.8 kg (215 lb 9.8 oz) 03/14/2024 2:30 P M IMPLEMENTATION LEAD Height 165.1 cm (5' 5) 03/13/2024 2:33 PM IMPLEMENTATION LEAD Body Mass Index 35.88 03/13/2024 2:33 PM IMPLEMENTATION LEAD Plan of Treatment Health Maintenance Due Date [...] PCR VIRAL LOAD Routine 03/15/2024 5:50 AM IMPLEMENTATION LEAD HEMOGLOBIN A1C W/ ESTIMATED GLUCOSE Routine 03/14/2024 4:22 AM IMPLEMENTATION LEAD CMP (COMPREHENSIVE METABOLIC PANEL) 03/13/2024 12:00 AM IMPLEMENTATION LEAD from Last 3 Months or Most Recently Relevant to Health Maintenance Results * Hepatitis C RNA Quant PCR Viral Load (03/15/2024 5:50 AM IMPLEMENTATION LEAD) Pathologist [facility] [place] HCV RNA QUANT PCR NON DETECTED NON DETECTED 03/15/2024 11:56 PM IMPLEMENTATION LEAD [facility] HCV RNA QT LOG10 03/15/2024 11:56 PM IMPLEMENTATION LEAD [facility] Comment: LOG 10 is not applicable. This test was performed using IRON 5800 Real Time PCR. Blood Venipuncture / Unknown 03/15/2024 5:50 AM IMPLEMENTATION LEAD 03/15/2024 5:59 AM IMPLEMENTATION LEAD us Crystal Amador MD IMMUNOLOGY ORDERABLES F inal Result [facility] [address] [place] [address], * (ABNORMAL) Hemoglobin A1C (if indicated) (03/14/2024 4:22 AM IMPLEMENTATION LEAD) Pathologist [facility] [place] HGB-A1C 6.4(H) 4.0 - 6.0 % 03/14/2024 6:12 AM IMPLEMENTATION LEAD [facility] Est Average Glucose 137.0 mg/dL 03/14/2024 6:12 AM IMPLEMENTATION LEAD [facility] Blood Venipuncture / Unknown 03/14/2024 4:22 AM IMPLEMENTATION LEAD 03/14/2024 5:45 AM IMPLEMENTATION LEAD Narrative [facility] - 03/14/2024 6:12 AM IMPLEMENTATION LEAD HEMOGLOBIN A1C: DIABETIC PATIENTS: WELL-CONTROLLED: 6.2 - 7.0 INTERMEDIATE WELL-CONTROLLED: 7.0 - 9.0 POORLY-CONTROLLED: >9.0 Specimens containing greater than 5% of Hemoglobin F may result in lower than expected % HbA1C results. us Jillian Castillo NSH TEACHER, GASOLINE TRUCK CRANE OPERATOR CHEMISTRY ORDERABLES Final Result [facility] [address] [place] [address] * CMP (Comprehensive Metabolic Panel) (03/13/2024 12:00 AM IMPLEMENTATION LEAD) 03/13/2024 us Provider Scan CHEMISTRY ORDERABLES Final Resul t SCAN from Last 3 Months or Most Recently Relevant to Health Maintenance Insurance [address] [place] [address] MEDICAID [place] MED[place]ARE Advance Directives * Full Code (Latest Code Status on File) Date Activated Date Inactivated Comments 03/13/2024 6:23 PM CPR-Full Treat ment: FULL ARREST: Attempt Resuscitation/CPR wit intubation and mechanical ventilation. PRE-ARREST: Use entire range of life support measures to stabilize the patient. Care Teams Unbundler Relationship Specialty Start Date End Date Provider, None [place] PCP - General 03/13/24
[2024-10-16 20:33] VITALS: BP 162/60; PULSE 76; RESP 21; TEMP 36.4; O2SAT 100
--- NOTE | 2024-10-16 20:38 | ECG_ITS ---
Test Date: 2024-10-16 20:42:32 Measurements Intervals [place] Rate: 74 P: 17 [place]: 236 QRS: -51 QRSD: 101 T: 121 QT: 410 QTc: 456 Interpretive Statements SINUS RHYTHM WITH FIRST DEGREE AV BLOCK LEFT AXIS DEVIATION LEFT VENTRICULAR HYPERTROPHY WITH ST-T CHANGE ANTEROSEPTAL INFARCT, AGE INDETERMINATE BASELINE ARTIFACT- I, II ABNORMAL ECG Compared to ECG 10/08/2024 20:47:19 NO SIGNIFICANT CHANGE Electronically Signed On 10-17-2024 06:35:29 CDT by Vincenzo Huddleston D.O.
--- OUTSIDE RECORDS SUMMARY | 2024-10-16 21:18 | XMS_ITS | Clinical Summary ---
Author Organization [facility] Address [address] [place] [address] Phone Care Team Providers Care Marine Chronometer Assembler Name Role Phone Provider, None Primary Care Provider Unavailabl e Allergies No known active allergies Medications Eliquis 5 MG Tablet Take 5 mg by mouth 2 times daily. 4 Active B Jdqbiqh-T-Zpged Acid (Deepa-Vikash Rx) 1 MG Tablet Take [...] Years Used Date Smoking Tobacco: Never Assessed [facility] Utilities Answer Date Recorded In the [...] any time in the past 12 m [facility], were you homeless or living in a correction (including now)? Patient declined 03/13/2024 Comments Unknown Sex and Gender Information Value Date Recorded Sex Assigned at Not on file Legal Sex Female 9:03 AM COMBER SETTER Gender Identity Not on file Sexual Orientation Not on file Last Filed Vital Signs Vital Sign Reading Time Taken Comments Blood Pressure 184/65 03/15/2024 2:00 PM COMBER SETTER Pulse 74 03/15/2024 2:00 PM COMBER SETTER Temperature 36.5 C (97.7 F) 03/15/2024 2:00 PM COMBER SETTER Respiratory Rate 18 03/15/2024 2:00 PM COMBER SETTER Oxygen Saturation 97% 03/15/2024 8:02 AM COMBER SETTER Inhaled Oxygen Concentration - - Weight 97.8 kg (215 lb 9.8 oz) 03/14/2024 2:30 P M COMBER SETTER Height 165.1 cm (5' 5) 03/13/2024 2:33 PM COMBER SETTER Body Mass Index 35.88 03/13/2024 2:33 PM COMBER SETTER Plan of Treatment Health Maintenance Due Date [...] PCR VIRAL LOAD Routine 03/15/2024 5:50 AM COMBER SETTER HEMOGLOBIN A1C W/ ESTIMATED GLUCOSE Routine 03/14/2024 4:22 AM COMBER SETTER CMP (COMPREHENSIVE METABOLIC PANEL) 03/13/2024 12:00 AM COMBER SETTER from Last 3 Months or Most Recently Relevant to Health Maintenance Results * Hepatitis C RNA Quant PCR Viral Load (03/15/2024 5:50 AM COMBER SETTER) Pathologist [facility] HCV RNA QUANT PCR NON DETECTED NON DETECTED 03/15/2024 11:56 PM COMBER SETTER [facility] HCV RNA QT LOG10 03/15/2024 11:56 PM COMBER SETTER [facility] Comment: LOG 10 is not applicable. This test was performed using IRON 5800 Real Time PCR. Blood Venipuncture / Unknown 03/15/2024 5:50 AM COMBER SETTER 03/15/2024 5:59 AM COMBER SETTER us Crystal Amador MD IMMUNOLOGY ORDERABLES F inal Result [facility] [address] [place] [address], * (ABNORMAL) Hemoglobin A1C (if indicated) (03/14/2024 4:22 AM COMBER SETTER) Pathologist [facility] HGB-A1C 6.4(H) 4.0 - 6.0 % 03/14/2024 6:12 AM COMBER SETTER [facility] Est Average Glucose 137.0 mg/dL 03/14/2024 6:12 AM COMBER SETTER [facility] Blood Venipuncture / Unknown 03/14/2024 4:22 AM COMBER SETTER 03/14/2024 5:45 AM COMBER SETTER Narrative [facility] - 03/14/2024 6:12 AM COMBER SETTER HEMOGLOBIN A1C: DIABETIC PATIENTS: WELL-CONTROLLED: 6.2 - 7.0 INTERMEDIATE WELL-CONTROLLED: 7.0 - 9.0 POORLY-CONTROLLED: >9.0 Specimens containing greater than 5% of Hemoglobin F may result in lower than expected % HbA1C results. us Jillian Castillo TRAIN BRAKEMAN, WASTE RECYCLER CHEMISTRY ORDERABLES Final Result [facility] [address] [place] [address] * CMP (Comprehensive Metabolic Panel) (03/13/2024 12:00 AM COMBER SETTER) 03/13/2024 us Provider Scan CHEMISTRY ORDERABLES Final Resul t SCAN from Last 3 Months or Most Recently Relevant to Health Maintenance Insurance [address] [place] [address] MEDICAID [place] Advance Directives * Full Code (Latest Code Status on File) Date Activated Date Inactivated Comments 03/13/2024 6:23 PM CPR-Full Treat ment: FULL ARREST: Attempt Resuscitation/CPR wit intubation and mechanical ventilation. PRE-ARREST: Use entire range of life support measures to stabilize the patient. Care Teams Marine Chronometer Assembler Relationship Specialty Start Date End Date Provider, None [place] PCP - General 03/13/24
--- OUTSIDE RECORDS SUMMARY | 2024-10-16 21:18 | XMS_ITS | Clinical Summary ---
Author Organization [facility] Address [address] [place] [address] Care Team Providers Care Heat And Vent Aircraft Mechanic Name Role Phone Jabari Banda MD Primary Care Provider [phone] Christine Stevens RN Unavailable [phone] Mily Vance POLICE ARTIST-NURSE SANE Unavailable + Darby Del Real RN Unavailable Unavailable Kaity Bowens Unavailable Unavailable Source Comments [facility],non-owned Affiliates and Associated Physician Practices is amultiple site organization consisting of ambulatory clinics and hospital sitesin [place], [place], [place] and [place]. This disclosure is being madepursuant to the Care Everywhere program and may not contain all information available regarding this patient. Last updated 17.[facility] Allergies No known active allergies Medications * [...] failure 016 Overview (08/22/2015): Added per clinical financial services specialist per dc summary Dr. Lee . 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 CUSTOMER DEVELOPMENT REPRESENTATIVE Gender Identity Not on file Sexual Orientation [...] 5:40 AM CDT) Hepatitis C Virus Quantitation [id number] IU/mL 05/07/2015 9:18 AM CDT [facility] Hepatitis C Virus Log 10 6.037 log10 IU/mL 05/07/2015 9:18 AM CDT [facility] ([facility]) Test Information Comment 05/07/2015 9:18 AM CDT [facility] Comment: The quantitative range of the [...] CDT 05/04/2015 5:46 AM CDT Narrative [facility] ([facility]) - 05/07/2015 9:18 AM CDT Performed at: [address] [place] [id number] Technical Aide: Conrado Keane MD, Phone: [phone] Nunu Reynoso MD LAB - CHEMISTRY ORDERABLES Final Result [facility]) [address] [place] [address] from Last 3 Months or Most Recently [...] 2:49 PM 05/01/2015 3:17 PM Care Teams Heat And Vent Aircraft Mechanic Relationship Specialty Start Date End Date Jabari Banda MD [address] [place] [address] PCP - General Internal Medicine 05/01/15 Christine Stevens, RN Continuous Improvement Manager 05/02/15 Mily Vance, POLICE ARTIST-NURSE SANE [address] [facility] [address] [place] [id number] Registered Nurse - Cardiopulmonary Rehab 08/04/15 Darby Del Real RN Registered Nurse - Cardiopulmonary Rehab 08/04/15 Kaity Bowens Dialysis Liaison 08/14/15
--- NOTE | 2024-10-16 21:23 | ECG_ITS ---
Test Date: 2024-10-16 21:26:51 Measurements Intervals [place] Rate: 72 P: 21 DC: 236 QRS: -62 QRSD: 97 T: 101 QT: 411 QTc: 452 Interpretive Statements SINUS RHYTHM WITH FIRST DEGREE AV BLOCK LEFT AXIS DEVIATION ANTEROSEPTAL INFARCT, AGE INDETERMINATE BORDERLINE ST-T WAVE ABNORMALITY- HIGH LATERAL LEADS ABNORMAL ECG Compared to ECG 10/16/2024 20:42:32 NO SIGNIFICANT CHANGE Electronically Signed On 10-17-2024 06:37:05 CDT by Vincenzo Huddleston D.O.
[2024-10-16 21:27] LABS: Hematocrit 35.0 % (37.0-47.0); Hemoglobin 11.1 g/dL (12.0-15.0); Immature Granulocyte Percent A 0.4 % (0-0.5); Lymphocytes Absolute Auto 0.78 K/mm3 (0.9-3.2); Mean Corpuscular HGB Conc 31.7 g/dl (32-36); Mean Corpuscular Hemoglobin 28.0 pg (26-34); Mean Corpuscular Volume 88.4 fl (80-100); Nucleated Red Blood Cells Absolute Auto 0.000 K/mm3 (0.0-0.012); Nucleated Red Blood Cells Perc 0.0 % (0.0-0.2); Platelet Count Result 238 k/mm3 (150-375); Red Blood Count 3.96 M/mm3 (4.2-5.4); White Blood Count 7.1 K/mm3 (4.5-10.0)
[2024-10-16 21:36] LABS: Alanine Aminotransferase 13 U/L (6-35); Albumin Level 3.8 g/dL (3.5-5.1); Alkaline Phosphatase 65 U/L (38-126); Anion Gap 11 mmol/L (4-12); Aspartate Amino Transferase 18 U/L (14-36); Bilirubin,Total 0.5 mg/dL (0.2-1.3); Blood Urea Nitrogen 17 mg/dL (7-17); Calcium 10.2 mg/dL (8.4-10.2); Carbon Dioxide 24 mmol/L (22-30); Chloride 94 mmol/L (98-107); Estimated Glomerular Filt Rate 7; Glucose 269 mg/dL (65-110); Lipase 97 U/L (23-300); Magnesium 2.0 mg/dL (1.6-2.3); Potassium 4.2 mmol/L (3.4-5.0); Sodium 129 mmol/L (137-145); Total Protein 7.0 g/dL (6.3-8.2)
[2024-10-16 21:50] VITALS: BP 174/70; PULSE 71; RESP 20; TEMP 36.9; O2SAT 96
[2024-10-16 21:51] VITALS: O2SAT 99
[2024-10-16 21:54] VITALS: BP 168/79; PULSE 72; RESP 20; O2SAT 98
[2024-10-16 21:55] LABS: NT Pro B Type Natriuretic Pept 19400 pg/mL (19.9-100); Troponin I 0.042 ng/mL (0.000-0.034)
--- NOTE | 2024-10-16 23:37 | ED.GENADULT ---
HPI - General Adult General Chief complaint: Shortness of Breath/Dyspnea Stated complaint: SOB Time Seen by Provider: 10/16/24 20:50 History of Present Illness HPI narrative: Patient is a 64-year-old female who presents the emergency department this evening complaining of shortness of breath, chest pressure which started yesterday. Patient was recently discharged from our facility for pneumonia. Has a history of COPD and CHF. Patient is also on dialysis for end-stage renal disease. She does wear oxygen at home 2 L all the times. Denies any recent illness, fevers or chills at home. No additional symptoms or concerns at this time. Related Data Home Medications ?Medication ?Instructions ?Recorded ?Confirmed ?Last Taken ?Type atorvastatin 20 mg tablet 20 mg PO HS 06/17/19 10/08/24 10/07/24 History clopidogrel 75 mg tablet 75 mg PO DAILY 06/17/19 10/08/24 10/07/24 History hydrocodone 7.5 mg-acetaminophen 1 tablet PO QID PRN Pain 06/17/19 10/08/24 Unknown History 325 mg tablet insulin aspar prot-insulin aspart 65 unit subcut BID 06/17/19 10/08/24 10/08/24 History 100 unit/mL (70-30) subcutaneous pen (Novolog Mix 70-30FlexPen U-100) levothyroxine 175 mcg tablet 175 mcg PO DAILY 06/17/19 10/08/24 10/07/24 History omeprazole 40 mg capsule,delayed 40 mg PO DAILY 06/17/19 10/08/24 10/07/24 History release paroxetine HCl 40 mg tablet 40 mg PO DAILY 06/17/19 10/08/24 10/07/24 History sevelamer carbonate 800 mg tablet See Rx Instructions .Route .COMPLEX 06/17/19 10/08/24 10/07/24 History budesonide 160 mcg-glycopyr 9 2 inh inhalation BID 01/02/21 10/08/24 09/07/24 History mcg-formot 4.8 mcg/actuation HFA inhaler (Breztri Aerosphere) montelukast 10 mg tablet 10 mg PO DAILY 01/02/21 10/08/24 10/07/24 History vitamin B complex-vitamin C-folic 0.8 tablet PO DAILY 01/02/21 10/08/24 10/07/24 History acid 0.8 mg tablet (Deepa-Vikash) amlodipine 5 mg tablet 5 mg PO DAILY 10/08/24 10/08/24 10/08/24 History apixaban 5 mg tablet (Eliquis) 5 mg PO Q12H 10/08/24 10/08/24 10/08/24 History diltiazem HCl 180 mg 180 mg PO Q24H 10/08/24 10/08/24 10/07/24 History capsule,extended release 24 hr, controlled (DILT-XR) metoclopramide HCl 10 mg tablet 10 mg PO PRN 10/08/24 10/08/24 10/01/24 History ondansetron 4 mg disintegrating 4 mg PO PRN 10/08/24 10/08/24 10/01/24 History tablet umeclidinium 62.5 mcg-vilanterol 1 inh inhalation Q24H 10/08/24 10/08/24 10/07/24 History 25 mcg/actuation powdr for inhalation (Anoro Ellipta) Allergies Allergy/AdvReac Type Severity Reaction Status Date / Time No Known Allergies Allergy Unverified 10/08/24 22:18 Review of Systems Review of Systems: All systems are reviewed and are negative unless stated otherwise in the HPI. [facility] Past Medical History Medical History CHF (congestive heart failure) Anxiety and depression History of CVA (cerebrovascular accident) VIJAY (obstructive sleep apnea) CAD (coronary artery disease) Hypothyroidism Other chronic pain Incomplete tear of left rotator cuff Chronic left shoulder pain Anemia Hypertension Hyperlipidemia ESRD (end stage renal disease) on dialysis COPD (chronic obstructive pulmonary disease) Diabetes mellitus Surgical History Surgical History S/P cholecystectomy History of thyroid surgery History of x2 Hx of appendectomy Family History Family History Father Diabetes mellitus Hypertension Cerebrovascular accident Family history of arthritis Family history of malignant neoplasm Mother Family history of malignant neoplasm Family history of diabetes mellitus in first degree relative Social History Social History Smoking packs per day: 0.5 Smoking cigarettes per day: 10.0 Years smoked: 20 Smoking pack-years: 10.00 Smoking status: Former smoker Tobacco type: cigarettes Second hand tobacco smoke exposure: No Smoking end date: 08/20/24 Alcohol intake: former Substance use: never Substance use type: marijuana Other substance usage details: occasion Lack of Transportation: No Lack of Food: Never True Current Housing: I Have Housing Concerned About Future Housing: No Difficulty Paying Gas/Electric Bills: No Difficulty Paying for Meds: No Currently Unemployed: No Education: Associate Degree Difficulty w/ Childcare or Family Care: No Living arrangements: with family Spiritual care concerns: No Exam Narrative: General: Alert, awake, afebrile, in no acute distress. HEENT: PERRL, no rhinorrhea, no post nasal drip, oropharynx clear. Neck: Trachea midline, no JVD, no lymphadenopathy. Cardiovascular: Regular rate and rhythm, no murmurs, rubs or gallops, no peripheral edema. Respiratory: Clear to auscultation bilaterally, no tachypnea, no wheezing, no rhonchi, no rubs, no respiratory distress. Abdomen: Soft, nontender, nondistended, no rebound, no guarding, no peritoneal signs. Musculoskeletal: No joint swelling or deformity, normal muscle tone. Skin: No rashes or petechia, no signs of infection. Psychiatric: Alert and oriented, normal behavior and judgment for situation. Neurological: Alert and oriented to person, place, and time. Follows all commands. No focal deficits, speech is clear and fluent. Course Vital Signs Vital signs: Vital Signs Temperature 97.5 F L 10/16/24 20:33 Pulse Rate 76 10/16/24 20:33 Respiratory Rate 21 H 10/16/24 20:33 Blood Pressure 162/60 H 10/16/24 20:33 Pulse Oximetry 100 10/16/24 20:33 Oxygen Delivery Nasal Cannula 10/16/24 20:33 Oxygen Flow Rate 2 10/16/24 20:33 Temperature 98.5 F 10/16/24 21:50 Pulse Rate 67 10/17/24 00:35 Respiratory Rate 20 10/17/24 00:35 Blood Pressure 101/63 10/17/24 00:35 Pulse Oximetry 96 10/17/24 00:35 Oxygen Delivery Nasal Cannula 10/16/24 21:54 Oxygen Flow Rate 2 10/16/24 21:54 Medical Decision Making MDM Narrative Medical decision making narrative: The patient was evaluated by myself in the emergency department. History is obtained from patient who is an independent historian and physical exam was performed. External medical records were reviewed at this time. IV was established and pertinent tests were ordered. EKG was obtained which revealed sinus rhythm rate of 74 beats per minute with nonspecific ST elevation seen in leads V1 through V3, similar to EKG from 10/08, no reciprocal changes. EKG was independently interpreted by me and is currently pending official cardiology read. Laboratory results obtained revealing elevated troponin baseline and 3 hour troponin of 0.042 which is trending downward from patient's troponin from October 08 and which were both 0.054[place] [address], however, this is trending downward from recent value of >30,000. Imaging studies obtained included CXR which was independently interpreted by me revealing no acute process, which is pending final radiology interpretation. Differential diagnosis considerations include CHF, acute coronary syndrome, acute viral syndrome, infectious process such as pneumonia. Comorbidities impacting this visit include history of COPD and CHF. I have evaluated and discussed social determinants of health with the patient that could potentially impact subsequent diagnosis and treatment plans. On repeat assessment of the patient, reevaluation revealed that the patient is doing well and is in no acute distress. Patient symptoms have improved since she arrived to our emergency department. She is requesting to be discharged home. Repeat vital signs were all reviewed and noted to be stable. Differential diagnosis and treatment plan were discussed with the patient at bedside. Patient agrees with discussion and after shared medical decision making agrees with discharge. All questions were answered to the patient's satisfaction. Patient will follow up with your PCP/glue clamp operator in 3-5 days. Patient was provided with strict return precautions and instructed to return to the emergency department if any new or worsening symptoms develop. The patient was discharged in stable condition. Vital Signs Vital Signs: Vital Signs Temperature 97.5 F L 10/16/24 20:33 Pulse Rate 76 10/16/24 20:33 Respiratory Rate 21 H 10/16/24 20:33 Blood Pressure 162/60 H 10/16/24 20:33 Pulse Oximetry 100 10/16/24 20:33 Oxygen Delivery Nasal Cannula 10/16/24 20:33 Oxygen Flow Rate 2 10/16/24 20:33 Temperature 98.5 F 10/16/24 21:50 Pulse Rate 67 10/17/24 00:35 Respiratory Rate 20 10/17/24 00:35 Blood Pressure 101/63 10/17/24 00:35 Pulse Oximetry 96 10/17/24 00:35 Oxygen Delivery Nasal Cannula 10/16/24 21:54 Oxygen Flow Rate 2 10/16/24 21:54 Lab Data 10/16/24 21:20 10/16/24 21:20 Labs: Lab Results 10/16/24 10/17/24 Range/Units 21:20 00:29 WBC 7.1 (4.5-10.0) K/mm3 RBC 3.96 L (4.2-5.4) M/mm3 Hgb 11.1 L (12.0-15.0) g/dL Hct 35.0 L (37.0-47.0) % MCV 88.4 (80-100) fl MCH 28.0 (26-34) pg MCHC 31.7 L (32-36) g/dl RDW 14.8 H (11.5-14.5) % Plt Count 238 (150-375) k/mm3 MPV 9.1 (7.4-10.4) fl Immature Gran % (Auto) 0.4 (0-0.5) % Neut % (Auto) 76.3 H (45.5-73.1) % Lymph % (Auto) 11.0 L (18.3-44.2) % [place] % (Auto) 9.0 H (2.6-8.5) % Eos % (Auto) 2.3 (0-4.4) % Baso % (Auto) 1.0 (0.2-1.2) % Lymph # (Auto) 0.78 L (0.9-3.2) K/mm3 [place] # (Auto) 0.6 (0.1-0.6) K/mm3 Eos # (Auto) 0.2 (0-0.3) K/mm3 Baso # (Auto) 0.1 (0.0-0.1) K/mm3 Abs Immat Gran (auto) 0.03 (0.00-0.031) K/mm3 Absolute Neuts (auto) 5.4 (1.3-6.7) K/mm3 Absolute Nucleated RBC 0.000 (0.0-0.012) K/mm3 Nucleated RBC % 0.0 (0.0-0.2) % Sodium 129 L (137-145) mmol/L Potassium 4.2 (3.4-5.0) mmol/L Chloride 94 L (98-107) mmol/L Carbon Dioxide 24 (22-30) mmol/L Anion Gap 11 (4-12) mmol/L BUN 17 (7-17) mg/dL Creatinine 5.80 H (0.7-1.0) mg/dL Estim Creat Clear Calc Not Reportable Estimated GFR 7 L (59 - ) Glucose 269 H (65-110) mg/dL Calcium 10.2 (8.4-10.2) mg/dL Magnesium 2.0 (1.6-2.3) mg/dL Total Bilirubin 0.5 (0.2-1.3) mg/dL AST 18 (14-36) U/L ALT 13 (6-35) U/L Alkaline Phosphatase 65 (38-126) U/L Troponin I 0.042 H* 0.042 H* (0.000-0.034) ng/mL NT-Pro-B Natriuret Pep 88127 H (19.9-100) pg/mL Total Protein 7.0 (6.3-8.2) g/dL Albumin 3.8 (3.5-5.1) g/dL Lipase 97 (23-300) U/L Discharge Plan Discharge Clinical Impression: Shortness of breath, Congestive heart failure Patient Disposition: Home Condition: Improved Instructions: Antibiotic Form, Heart Failure (DC), Shortness of Breath (ED) Additional Instructions: Please follow-up with your glue clamp operator within the next 3-5 days. Return to the emergency department if any new or worsening symptoms develop. Patient Language: Ethiopian Prescriptions: No Action montelukast 10 mg tablet 10 mg PO DAILY Deepa-Vikash 0.8 mg tablet 0.8 tablet PO DAILY Breztri Aerosphere 160-9-4.8 mcg/actuation HFA aerosol inhaler 2 inh INHALATION BID levothyroxine 175 mcg tablet 175 mcg PO DAILY atorvastatin 20 mg tablet 20 mg PO HS clopidogrel 75 mg tablet 75 mg PO DAILY omeprazole 40 mg capsule,delayed release(DR/EC) 40 mg PO DAILY hydrocodone-acetaminophen 7.5-325 mg tablet 1 tablet PO QID PRN (Reason: Pain) paroxetine HCl 40 mg tablet 40 mg PO DAILY insulin asp prt-insulin aspart [Novolog Mix 70-30FlexPen U-100] 100 unit/mL (70-30) insulin pen 65 unit SUBCUT BID Patient Comments: Patient states she is pretty sure they changed her dose to 35 units. sevelamer carbonate 800 mg tablet See Rx Instructions .ROUTE .COMPLEX Rx Instructions: take as prescribed amlodipine 5 mg tablet 5 mg PO DAILY Eliquis 5 mg tablet 5 mg PO Q12H diltiazem HCl [DILT-XR] 180 mg capsule,ext.rel 24h degradable 180 mg PO Q24H metoclopramide HCl 10 mg tablet 10 mg PO PRN ondansetron 4 mg tablet,disintegrating 4 mg PO PRN umeclidinium-vilanterol [Anoro Ellipta] 62.5-25 mcg/actuation blister with device 1 inh INHALATION Q24H levofloxacin 500 mg tablet 500 mg PO .q48 Qty: 3 0RF Rx Instructions: Please take the antibiotic every 48 hours. Gimoti 15 mg/spray spray with pump 1 spray intranasal QID 28 Days Qty: 9.8 0RF Rx Instructions: administer into ONE nostril 15 minutes before each meal and at bedtime Follow-up/Referrals: Jabari Banda MD [Primary Care Provider, Internal Medicine] - 3 Days Time of Disposition: 01:01
--- NOTE | 2024-10-17 00:20 | ECG_ITS ---
Test Date: 2024-10-17 00:34:44 Measurements Intervals [place] Rate: 67 P: 12 NV: 247 QRS: -35 QRSD: 98 T: 136 QT: 430 QTc: 455 Interpretive Statements SINUS RHYTHM WITH FIRST DEGREE AV BLOCK MARKED LEFT AXIS DEVIATION ANTEROSEPTAL INFARCT, AGE INDETERMINATE BORDERLINE ST-T WAVE ABNORMALITY- HIGH LATERAL LEADS ABNORMAL ECG Compared to ECG 10/16/2024 21:26:51 No significant changes Electronically Signed On 10-17-2024 06:41:47 CDT by Vincenzo Huddleston D.O.
[2024-10-17 00:35] VITALS: BP 101/63; PULSE 67; RESP 20; O2SAT 96
[2024-10-17 01:00] LABS: Troponin I 0.042 ng/mL (0.000-0.034)
[2024-10-17 01:11] VITALS: BP 173/63; PULSE 63; RESP 19; TEMP 36.6; O2SAT 98
== END 2024-10-17 01:12 | disposition home or self-care (01) ==
PROVIDERS: Emergency Provider Emergency Medicine; PCP Internal Medicine
DX: R06.02 Shortness of breath (principal); I50.9 Heart failure, unspecified; F41.9 Anxiety disorder, unspecified; F32.A Depression, unspecified; G47.30 Sleep apnea, unspecified; I25.10 Atherosclerotic heart disease of native coronary artery without angina pectoris; E03.9 Hypothyroidism, unspecified; D64.9 Anemia, unspecified; E78.5 Hyperlipidemia, unspecified; I13.2 Hypertensive heart and chronic kidney disease with heart failure and with stage 5 chronic kidney disease, or end stage renal disease; E11.22 Type 2 diabetes mellitus with diabetic chronic kidney disease; N18.6 End stage renal disease; Z79.4 Long term (current) use of insulin
CPT/HCPCS: 36415; 71045; 80053; 83690; 83735; 83880; 84484; 85025; 93005; 99284

== ENCOUNTER 2024-10-23 09:35 | Inpatient (IN) | payer MEDICARE, MEDICAID, SELFPAY ==
[2024-10-23] VITALS (13 sets, daily range): BP systolic 172–195; BP diastolic 72–100; PULSE 73–83; RESP 15–24; TEMP 36.1–37.1; O2SAT 98–100; BMI 30.9
--- NOTE | ~2024-10-23 | XR_ITS ---
EXAMINATION: XR chest 1V portable DATE: 10/24/2024 05:30 INDICATION: Shortness of breath TECHNIQUE: frontal view of the chest was obtained. COMPARISON: Chest radiograph dated 10/16/2024 FINDINGS: Indistinct interstitial with peribronchial cuffing in the bilateral mid and lower lung zones suggestive of pulmonary edema with differential including pneumonia. Additional linear and patchy airspace opacities in the left mid and bilateral lower lung zones which could represent atelectasis or pneumonia. Small bilateral pleural effusions. No pneumothorax. Cardiomegaly. Surgical clips at the left base of the neck. IMPRESSION: 1. Likely congestive heart failure with cardiomegaly, mild pulmonary edema and small bilateral pleural effusions. 2. Additional linear and patchy airspace opacities in the left mid and bilateral lower lung zones which could represent atelectasis or pneumonia. Reviewed, dictated and finalized at location A. IMPRESSION: 1. Likely congestive heart failure with cardiomegaly, mild pulmonary edema and small bilateral pleural effusions. 2. Additional linear and patchy airspace opacities in the left mid and bilatera l lower lung zones which could represent atelectasis or pneumonia.
--- NOTE | ~2024-10-23 | CT_ITS ---
EXAMINATION: CT abdomen pelvis wo con DATE: 10/23/2024 11:11 INDICATION: Epigastric pain, nausea, vomiting and constipation. TECHNIQUE: Computed tomography (CT) of the abdomen and pelvis was performed without intravenous contrast. Automated exposure control and iterative reconstruction technique were employed. The dose-length product was 630.18 mGy-cm. COMPARISON: 10/12/2024 FINDINGS: Mild bilateral dependently layering pleural effusions, right greater than left. Consolidation in the right lower lobe with bronchial crowding favoring atelectasis over pneumonia. There are some calcified nodules in the collapsed right lower lobe along with calcified mediastinal lymph nodes and multiple hepatic and splenic calcific lesions consistent with old granulomatous disease. Mild cardiomegaly. No pericardial effusion. Gallbladder not visualized and likely surgically absent. Pancreas and bilateral adrenal glands are normal. Severe bilateral renal atrophy. There are multiple stones in the bilateral renal pelvises sees with no hydronephrosis. There are likely additional stones in the bilateral renal collecting systems however these are difficult to distinguish from extensive atherosclerotic calcifications which can be seen in the abdominal aorta and many of the arteries throughout the abdomen and pelvis including in both kidneys. Bladder, uterus and right ovary are unremarkable. 1.5 cm left o varian cysts. Bowels are unremarkable. No abnormal bowel wall thickening or obstruction. No free intraperitoneal gas or fluid. No pathologically enlarged abdominal or pelvic lymphadenopathy. Mild lower thoracic spondylosis with bridging osteophytes at multiple levels consistent with diffuse idiopathic skeletal hyperostosis (DISH). IMPRESSION: 1. No acute intra-abdominal/pelvic process. 2. Small bilateral pleural effusions with consolidation in the basilar right lower lobe and favor atelectasis over pneumonia. 3. Severe bilateral renal atrophy with stones in the bilateral renal pelvises sees without hydronephrosis. Reviewed, dictated and finalized at location A. IMPRESSION: 1. No acute intra-abdominal/pelvic process. 2. Small bilateral pleural effusions with consolidation in the basilar right lo wer lobe and favor atelectasis over pneumonia. 3. Severe bilateral renal atrophy with stones in the bilateral renal pelvises s ees without hydronephrosis.
--- OUTSIDE RECORDS SUMMARY | 2024-10-23 09:52 | XMS_ITS | Encounter Summary ---
Author Organization [facility] Address [address] [place] [address] Care Team Providers Care Baggage Porter Name Role Phone Jabari Banda MD Primary Care Provider [phone] Klaus Ramos MD Unavailable [phone] Rylee Rocha MD Unavailable Sergio Ahn PA-C Unavailable [phone] Encounter Details Date Type Department Care Team (Late st Contact Info) Description 12/12/2019 Hospital Follow-up Call [facility] [address] [place], [place] [phone] Jeri Youssef RN Social History Tobacco Use [...] Sex Assigned at Female 03/23/2024 12:06 PM KEYPUNCHER Legal Sex Female 3:27 AM CDT Gender Identity Female 02/11/2023 3:50 PM KEYPUNCHER Sexual Orientation Not on file COVID-19 Exposure [...] Author Status No 11/26/2019 5:43 PM CDT Yuinel Gutierrez RN Active * Do you have [...] 11/22/2024 3:00 PM CDT Office Visit [facility] [address] [place] [address] Sergio Ahn PA-C [address] [place] [address] documented as of this encounter Visit Diagnoses Not on filedocumented in this encounter Additional Health Concerns Infection Onset Date Last Indicated Resolved Time COVID-19 Confirmed 11/25/2019 11/25/2019 0 12:33 AM KEYPUNCHER COVID-19 Rule Out 09/25/2021 09/25/2021 09/26/2021 1:16 AM CDT COVID-19 Rule Out 10/21/2021 10/21/2021 10/22/2021 2:07 PM CDT COVID-19 Rule Out 01/08/2024 01/08/2024 01/08/2024 10:52 PM KEYPUNCHER COVID-19 Rule Out 06/18/2024 06/18/2024 06/18/2024 8:01 AM CDT Respiratory Rule Out 06/18/2024 06/18/2024 025 8:01 AM CDT documented as of this encounter Care Teams Baggage Porter Relationship Specialty Start Date End Date Jabari Banda MD [address] [place] [phone] PCP - General INTERNAL MEDICINE 12/02/15 Klaus Ramos MD [address] [place] [address] Jackpot Patent Leather Sorter CARDIOVASCULAR DISEASE 07/26/18 10/05/23 Rylee Rocha MD [address] [place] [address] Consulting Physician CARDIOVASCULAR DISEASE 10/06/23 Sergio Ahn PA-C [address] [place] [address] PHYSICIAN BAR STAFF 11/10/23 documented as of this encounter
--- OUTSIDE RECORDS SUMMARY | 2024-10-23 09:52 | XMS_ITS | Encounter Summary ---
Author Organization [facility] Address [address] [place] [address] Care Team Providers Care Brass Sorter Name Role Phone Jabari Banda MD Primary Care Provider [phone] Klaus Ramos MD Unavailable [phone] Rylee Rocha MD Unavailable Sergio Ahn PA-C Unavailable [phone] Encounter Details Date Type Department Care Team (Late st Contact Info) Description 10/28/2021 Hospital Follow-up Call [facility] Cardiovascular Care Unit [address] [place] [address] Nikki Springer, RN Social History Tobacco Use [...] Sex Assigned at Female 03/23/2024 12:06 PM ADVERTISING SALES ASSOCIATE Legal Sex Female 3:27 AM CDT Gender Identity Female 02/11/2023 3:50 PM ADVERTISING SALES ASSOCIATE Sexual Orientation Not on file COVID-19 Exposure [...] Description 11/22/2024 3:00 PM CDT Office Visit [facility] [address] [place] [address] Sergio Ahn PA-C [address] [place] [address] documented as of this encounter Goals Goal [...] Rule Out 01/08/2024 01/08/2024 01/08/2024 10:52 PM ADVERTISING SALES ASSOCIATE COVID-19 Rule Out 06/18/2024 06/18/2024 06/18/2024 8:01 AM CDT Respiratory Rule Out 06/18/2024 06/18/2024 025 8:01 AM CDT documented as of this encounter Care Teams Brass Sorter Relationship Specialty Start Date End Date Jabari Banda MD [address] [place] [phone] PCP - General INTERNAL MEDICINE 12/02/15 Klaus Ramos MD [address] [place] [phone] [place] Curing Bin Operator CARDIOVASCULAR DISEASE 07/26/18 10/05/23 Rylee Rocha MD [address] [place] [address] Consulting Physician CARDIOVASCULAR DISEASE 10/06/23 Sergio Ahn PA-C [address] [place] [address] PHYSICIAN SWIMMING POOL INSTALLER 11/10/23 documented as of this encounter
--- OUTSIDE RECORDS SUMMARY | 2024-10-23 09:52 | XMS_ITS | Encounter Summary ---
Author Organization [facility] Address [address] [place] [address] Care Team Providers Care Mechanical Supervisor Name Role Phone Jabari Banda MD Primary Care Provider [phone] Segundo Cavazos MD Unavailable Unavailab Klaus Dennis MD Unavailable [phone] Rylee Rocha MD Unavailable Sergio Ahn PA-C Unavailable [phone] Reason for Visit * Reason Onset Date Comments Follow Up Call 07/21/2018 Encounter Details Date Type Department Care Team (Late st Contact Info) Description 07/21/[address] [facility] [address] [place] [address] Nikki Springer, RN Follow Up Call Social [...] Sex Assigned at Female 03/23/2024 12:06 PM LITHOGRAPHIC PRINTING MACHINIST Legal Sex Female 3:27 AM CDT Gender Identity Female 02/11/2023 3:50 PM LITHOGRAPHIC PRINTING MACHINIST Sexual Orientation Not on file documented as [...] Description 11/22/2024 3:00 PM CDT [facility] [address] [place] [address] Sergio Ahn PA-C [address] [place] [address] documented as of this encounter Visit Diagnoses Not on filedocumented in this encounter Additional Health Concerns Infection Onset Date Last Indicated Resolved Time COVID-19 Rule Out 06/19/2019 06/19/2019 06/20/2019 5:16 AM CDT COVID-19 Confirmed 11/25/2019 11/25/2019 0 12:33 AM LITHOGRAPHIC PRINTING MACHINIST COVID-19 Rule Out 11/25/2019 11/25/2019 11/26/2019 12:00 PM CDT COVID-19 Rule Out 09/25/2021 09/25/2021 09/26/2021 1:16 AM CDT COVID-19 Rule Out 10/21/2021 10/21/2021 10/22/2021 2:07 PM CDT COVID-19 Rule Out 01/08/2024 01/08/2024 01/08/2024 10:52 PM LITHOGRAPHIC PRINTING MACHINIST COVID-19 Rule Out 06/18/2024 06/18/2024 06/18/2024 8:01 AM CDT Respiratory Rule Out 06/18/2024 06/18/2024 025 8:01 AM CDT documented as of this encounter Care Teams Mechanical Supervisor Relationship Specialty Start Date End Date Jabari Banda MD [address] [place] [phone] PCP - General INTERNAL MEDICINE 12/02/15 Segundo Cavazos MD [address] [place] [address] CARDIOVASCULAR DISEASE 12/02/15 07/25/18 Klaus Ramos MD [address] [place] [phone] [place] Certified Flight Instructor CARDIOVASCULAR DISEASE 07/26/18 10/05/23 Rylee Rocha MD [address] [place] [address] Consulting Physician CARDIOVASCULAR DISEASE 10/06/23 Sergio Ahn PA-C [address] [place] [phone] PHYSICIAN PICTURE FRAMER 11/10/23 documented as of this encounter
--- OUTSIDE RECORDS SUMMARY | 2024-10-23 09:52 | XMS_ITS | Encounter Summary ---
Author Organization [facility] Address [address] [place] [address] Care Team Providers Care Park Recreation Manager Name Role Phone Jabari Banda MD Primary Care Provider [phone] Klaus Ramos MD Unavailable [phone] Rylee Rocha MD Unavailable Sergio Ahn PA-C Unavailable [phone] Encounter Details Date Type Department Care Team (Late st Contact Info) Description 07/29/2018 Abstract [facility] CONVERSION [address] [place], [place] [id number] , Generic Conversion, Social History Tobacco Use [...] Sex Assigned at Female 03/23/2024 12:06 PM DIAMOND SETTER Legal Sex Female 3:27 AM CDT Gender Identity Female 02/11/2023 3:50 PM DIAMOND SETTER Sexual Orientation Not on file documented as [...] Description 11/22/2024 3:00 PM CDT [facility] [address] [place] [address] Sergio Ahn PA-C [address] [place] [address] documented as of this encounter Visit Diagnoses Not on filedocumented in this encounter Additional Health Concerns Infection Onset Date Last Indicated Resolved Time COVID-19 Rule Out 06/19/2019 06/19/2019 06/20/2019 5:16 AM CDT COVID-19 Confirmed 11/25/2019 11/25/2019 12:33 AM DIAMOND SETTER COVID-19 Rule Out 11/25/2019 11/25/2019 11/26/2019 12:00 PM CDT COVID-19 Rule Out 09/25/2021 09/25/2021 09/26/2021 1:16 AM CDT COVID-19 Rule Out 10/21/2021 10/21/2021 10/22/2021 2:07 PM CDT COVID-19 Rule Out 01/08/2024 01/08/2024 01/08/2024 10:52 PM DIAMOND SETTER COVID-19 Rule Out 06/18/2024 06/18/2024 06/18/2024 8:01 AM CDT Respiratory Rule Out 06/18/2024 06/18/2024 025 8:01 AM CDT documented as of this encounter Care Teams Park Recreation Manager Relationship Specialty Start Date End Date Jabari Banda MD [address] [place] [phone] PCP - General INTERNAL MEDICINE 12/02/15 Klaus Ramos MD [address] [place] [address] [place] Electronic Typesetting Machine Operator CARDIOVASCULAR DISEASE 07/26/18 10/05/23 Rylee Rocha MD [address] [place] [address] Consulting Physician CARDIOVASCULAR DISEASE 10/06/23 Sergio Ahn PA-C [address] [place] [address] PHYSICIAN INSOLE RASPER 11/10/23 documented as of this encounter
--- OUTSIDE RECORDS SUMMARY | 2024-10-23 09:52 | XMS_ITS | Encounter Summary ---
Author Organization [facility] Address [address] [place] [address] Care Team Providers Care Reclamation Kettle Tender Name Role Phone Jabari Banda MD Primary Care Provider [phone] Klaus Ramos MD Unavailable [phone] Rylee Rocha MD Unavailable Sergio Ahn PA-C Unavailable [phone] Encounter Details Date Type Department Care Team (Late st Contact Info) Description 10/01/2021 Hospital Follow-up Call [facility] Cardi[facility] Care Unit [address] [place] [address] Nikki Springer, RN Social History [...] Sex Assigned at Female 03/23/2024 12:06 PM X RAY ELECTRONICS WIREMAN Legal Sex Female 3:27 AM CDT Gender Identity Female 02/11/2023 3:50 PM X RAY ELECTRONICS WIREMAN Sexual Orientation Not on file COVID-19 Exposure [...] Description 11/22/2024 3:00 PM CDT [facility] [address] [place] [address] Sergio Ahn PA-C [address] [place] [address] documented as of this encounter Goals Goal [...] Rule Out 01/08/2024 01/08/2024 01/08/2024 10:52 PM X RAY ELECTRONICS WIREMAN COVID-19 Rule Out 06/18/2024 06/18/2024 06/18/2024 8:01 AM CDT Respiratory Rule Out 06/18/2024 06/18/2024 025 8:01 AM CDT documented as of this encounter Care Teams Reclamation Kettle Tender Relationship Specialty Start Date End Date Jabari Banda MD [address] [place] [address] PCP - General INTERNAL MEDICINE 12/02/15 Klaus Ramos MD [address] [place] [address] [place] Plumber Assistant CARDIOVASCULAR DISEASE 07/26/18 10/05/23 Rylee Rocha MD [address] [place] [address] Consulting Physician CARDIOVASCULAR DISEASE 10/06/23 Sergio Ahn PA-C [address] [place] [address] PHYSICIAN ERECTOR OPERATOR 11/10/23 documented as of this encounter
--- OUTSIDE RECORDS SUMMARY | 2024-10-23 09:53 | XMS_ITS | Encounter Summary ---
Author Organization [facility] Address [address] [place] [address] Care Team Providers Care Jet Mechanic Name Role Phone Jabari Banda MD Primary Care Provider [phone] Klaus Ramos MD Unavailable [phone] Rylee Rocha MD Unavailable Sergio Ahn PA-C Unavailable [phone] Encounter Details Date Type Department Care Team (Late st Contact Info) Description 08/16/2023 Hospital Follow-up Call [facility] Cardiovascular Care Unit [address] [place] [address] Nikki Springer, RN Social History [...] place to sleep or slept in a fpc (including now)? No 05/16/2023 Housing Stability Vital [...] in the past 12 m [facility], were you homeless or living in a fpc (including now)? No 08/12/2023 Comments No Sex and Gender Information Value Date Recorded Sex Assigned at Female 03/23/2024 12:06 PM DULITE MACHINE BLUER Legal Sex Female 3:27 AM CDT Gender Identity Female 02/11/2023 3:50 PM DULITE MACHINE BLUER Sexual Orientation Not on file documented as [...] Office Visit [facility] [address] [place] [address] Sergio Ahn PA-C [address] [place] [address] documented as of this encounter Goals Goal [...] Rule Out 01/08/2024 01/08/2024 01/08/2024 10:52 PM DULITE MACHINE BLUER COVID-19 Rule Out 06/18/2024 06/18/2024 06/18/2024 8:01 AM CDT Respiratory Rule Out 06/18/2024 06/18/2024 025 8:01 AM CDT documented as of this encounter Care Teams Jet Mechanic Relationship Specialty Start Date End Date Jabari Banda MD [address] [place] [phone] PCP - General INTERNAL MEDICINE 12/02/15 Klaus Ramos MD [address] [place] [phone] [place] Travel Guide CARDIOVASCULAR DISEASE 07/26/18 10/05/23 Rylee Rocha MD [address] [place] [address] Consulting Physician CARDIOVASCULAR DISEASE 10/06/23 Sergio Ahn PA-C [address] [place] [phone] PHYSICIAN CRM ANALYST 11/10/23 documented as of this encounter
--- OUTSIDE RECORDS SUMMARY | 2024-10-23 09:53 | XMS_ITS | Encounter Summary ---
Author Organization [facility] Address [facility] [place] [address] Care Team Providers Care Strategic Solutions Consultant Name Role Phone Jabari Banda MD Primary Care Provider [phone] Klaus Ramos MD Unavailable [phone] Rylee Rocha MD Unavailable Sergio Ahn PA-C Unavailable [phone] Encounter Details Date Type Department Care Team (Late st Contact Info) Description 04/29/2023 Hospital Orders Only Jazmin's Supervisor Roving Pre/Post [address] [place] [address] Adithya Owens MD [address] [facility] [address] [phone] Social History Tobacco Use Types Packs/Day Years [...] Sex Assigned at Female 03/23/2024 12:06 PM BOTTOM LOADER Legal Sex Female 3:27 AM CDT Gender Identity Female 02/11/2023 3:50 PM BOTTOM LOADER Sexual Orientation Not on file documented as [...] 11/22/2024 3:00 PM CDT [facility] [address] [place] [address] Sergio Ahn PA-C [address] [place] [address] documented as of this encounter Goals Goal [...] Rule Out 01/08/2024 01/08/2024 01/08/2024 10:52 PM BOTTOM LOADER COVID-19 Rule Out 06/18/2024 06/18/2024 06/18/2024 8:01 AM CDT Respiratory Rule Out 06/18/2024 06/18/2024 025 8:01 AM CDT documented as of this encounter Care Teams Strategic Solutions Consultant Relationship Specialty Start Date End Date Jabari Banda MD [address] [place] [address] PCP - General INTERNAL MEDICINE 12/02/15 Klaus Ramos MD [address] [place] [phone] [place] Sleeping Room Cleaner CARDIOVASCULAR DISEASE 07/26/18 10/05/23 Rylee Rocha MD [address] [place] [address] Consulting Physician CARDIOVASCULAR DISEASE 10/06/23 Sergio Ahn PA-C [address] [place] [address] PHYSICIAN MD UROLOGIST 11/10/23 documented as of this encounter
--- OUTSIDE RECORDS SUMMARY | 2024-10-23 09:53 | XMS_ITS | Encounter Summary ---
Author Organization [facility] Address [address] [place] [address] Care Team Providers Care Utilities Estimator And Drafter Name Role Phone Jabari Banda MD Primary Care Provider [phone] Christine Stevens RN Unavailable [phone] Mily Vance BANQUET HOUSEPERSON-RESERVATIONS MANAGER Unavailable + Darby Del Real RN Unavailable Unavailable Kaity Bowens Unavailable Unavailable Encounter Details Date Type Department Care Team (Late st Contact Info) Description 08/11/2015 Transitional Care [facility] DISEASE MANAGEMENT [address] [place] [address] Darby Del Real RN Social History Tobacco Use Types Packs/Day Years Used Date Smoking Tobacco: Former Cigarettes Q uit: 05/02/2015 Alcohol Use Standard Drinks/Week Comments Not Asked 0 (1 standard drink = 0.6 oz pur e alcohol) Comments No Sex and Gender Information Value Date Recorded Sex Assigned at Not on file Legal Sex Female 9:41 AM BELT OPERATOR Gender Identity Not on file Sexual [...] on filedocumented in this encounter Care Teams Utilities Estimator And Drafter Relationship Specialty Start Date End Date Jabari Banda MD [address] [place] [address] PCP - General Internal Medicine 05/01/15 Christine Stevens RN Home Health Scheduler 05/02/15 Mily Vance, BANQUET HOUSEPERSON-RESERVATIONS MANAGER [address] [place] [address] Registered Nurse - Cardiopulmonary Rehab 08/04/15 Darby Del Real RN Registered Nurse - Cardiopulmonary Rehab 08/04/15 Kaity Bowens Dialysis Liaison 08/14/15 documented as of this encounter
--- OUTSIDE RECORDS SUMMARY | 2024-10-23 09:53 | XMS_ITS | Clinical Summary ---
Author Organization [facility] Address [address] [place] [address] Care Team Providers Care Excel Developer Name Role Phone Jabari Banda MD Primary Care Provider [phone] Rylee Rocha MD Unavailable Sergio Ahn PA-C Unavailable [phone] Allergies No known active allergies Medications clopidogrel (PLAVIX) 75 MG tabletIndications :blood thinner Take 1 tablet (75 mg total) by mouth daily. Indications: blood thinner 11/16/19 14 Active atorvastatin 20 MG tabletIndications :Hypercholesterol emia Take 1 tablet (20 mg total) by mouth nightly. Indications: High Amount of Cholesterol in the Blood Active paroxetine 40 MG tablet Take 1 tablet (40 mg total) by mouth daily. anxiety Active hydrocodone-aceta minophen 7.5-325 MG tablet Take 1 tablet by mouth every 6 (six) hours as needed for Pain. 10 tablet 07/20/19 19 Active montelukast 10 MG tablet Take 1 tablet (10 mg total) by mouth nightly at bedtime. 08/15/19 21 Active sevelamer carbonate (RENVELA) 800 MG tablet Take 3 tablets (2,400 mg total) by mouth 3 (three) times daily with meals. Active BD PEN NEEDLE BRAYDEN 2ND GEN 32G X 4 MM Misc Inject 1 Needle into the skin 2 (two) times daily. 09/22/19 22 Active ANNA-ALLYSON RX 1 MG Tab Take 1 tablet by mouth daily. 10/31/19 22 Active ipratropium-albut elmo (DUONEB) 0.5-2.5 (3) MG/3ML Solution Take 3 mLs by nebulization every 4 (four) hours as needed (as needed). As needed 01/13/20 23 Active levothyroxine (SYNTHROID) 125 MCG tablet Take [...] Inhale 1 puff into the lungs daily. 05/01/19 24 Active OXYGEN CONCENTRATOR SUPPLY, DME,Indications:C HF (congestive heart failure) ([facility] HHS/HCC),Acute asthma exacerbation (HHS/HCC),Pulmona ry hypertension ([facility] HHS/HCC) 1 Device by Nasal route continuous. Nasal Cannula. 3L with activity and nocturnal. Portable Tanks needed. Stationary Concentrator. 1 Device 05/19/19 24 Active WALKER [facility], DME,Indications:C HF (congestive heart failure) ([facility] HHS/HCC),Acute asthma exacerbation (HHS/HCC),Pulmona ry hypertension ([facility] HHS/HCC) 1 Device by Does not apply route as needed. 4 wheeled walker with basket for SOBOE. 1 Device 05/19/19 24 Active albuterol sulfate HFA 108 (90 Base) MCG/ACT inhaler Inhale 2 puffs into the lungs 4 (four) times daily as needed. 07/27/19 24 Active Nebulizers (XENIA LC PLUS NEBULIZER) [facility] USE WITH NEBULIZER DAILY 07/28/19 24 Active apixaban (ELIQUIS) 5 MG tablet Take 1 tablet (5 mg total) by mouth 2 (two) times daily. 60 tablet 11 08/30/19 24 Active metoclopramide (REGLAN) 5 MG tablet Take 1 tablet (5 mg total) by mouth 4 (four) times daily. Active pantoprazole EC (PROTONIX) 20 MG tablet Take 1 tablet (20 mg total) by mouth daily. 03/16/19 25 Active dilTIAZem ER (DILT-XR) 180 MG 24 hr capsule Take 1 capsule (180 mg total) by mouth daily. 30 capsule 6 06/02/19 25 Active NOVOLOG MIX 70/30 FLEXPEN 100 unit/mL injection (PEN) Inject 30 Units into the skin 2 (two) times daily before meals. INJECT 30 UNITS UNDER THE SKIN EVERY MORNING AND EVENING 18 mL 06/16/19 25 Active amLODIPine (NORVASC) 5 MG tablet Take 1 tablet (5 mg total) by mouth daily. 09/01/19 25 Active ondansetron (ZOFRAN-ODT) 4 MG disintegrating tablet Take 1 tablet (4 mg total) by mouth every 8 (eight) hours as needed for Nausea. 30 tablet 09/24/19 25 Active amoxicillin-clavu lanate (AUGMENTIN) 875-125 MG tablet Take 1 tablet (875 mg total) by mouth 2 (two) times daily for 7 days. 14 tablet 09/29/19 25 025 Active Problems Problem Noted Date Diagnosed Date Nausea and vomiting 07/16/2024 Pneumonia 06/18/2024 Bacterial pneumonia 06/18/2024 Acute encephalopathy 06/13/2024 Atypical atrial flutter ([facility]) 2023 S/P ablation of atrial fibrillation 11/10/2023 Atrial fibrillation with RVR ([facility]) 0 08/12/2023 Hypertension with fluid overload 05/16/2023 Fluid overload 05/16/2023 Chronic anticoagulation 05/09/2023 Paroxysmal atrial fibrillation ([facility]) 03/08/2023 Pericarditis ([facility]) 10/24/2021 Rapid atrial fibrillation ([facility]) 09/23 Atrial fibrillation with rap id ventricular response ([facility]) 10/21/2021 Acute [place] ([facility]) 09/25/2021 Acute myocardial infarction ([facility]) COVID-19 11/26/2019 Acute asthma exacerbation ([facility]) 06/19/2019 Chest wall pain 07/10/2018 CHF (congestive heart failure) ([facility]) 07/09/2018 Coronary artery disease invo lving grayling coronary artery of grayling heart without angina pectoris 12/16/2015 Hypertension 12/16/2015 Hyperlipidemia, mixed 12/16/2015 ESRD on hemodialysis ([facility]) 6 H/O: CVA (cerebrovascular accident) 12/16/2015 ESRD (end stage renal disease) ([facility]) 08/17/2015 Morbid obesity 08/17/2015 Diabetic nephropathy ([facility]) 6 Sleep apnea Overview (09/22/2020): testing positive;had machine-didn't use it often enough,so it was taken away Resolved Problems Problem Noted Date Diagnosed Date Resolved Date Acute viral pericarditis ([facility]) 10/24/2021 10/24/2021 Encounters Date Type Department Care Team Description 10/03/2024 Telephone [facility] [address] [place] [address] Sergio Ahn PA-C Follow Up 09/27/2024 10:38 PM CDT - 09/28/2024 12:25 AM CDT [facility] [address] [place] [address] Hypoglycemia Discharge Disposition: Home or Self Care (Routine Discharge) 09/27/2024 Travel 09/23/2024 6:59 PM CDT - 09/23/2024 10:41 PM CDT Emergency [facility] Emergency [address] [place] [address] Angelo Nava MD Abdominal Pain Discharge Disposition: Home or Self Care (Routine Discharge) 09/23/2024 Travel 09/04/2024 Telephone [facility] [address] [place] [address] Rylee Rocha MD Reschedule 09/03/2024 11:45 AM CDT - 09/03/2024 2:32 PM CDT [facility] [address] [place] [address] Jamie Schumacher MD Abdominal Pain Discharge Disposition: Home or Self Care (Routine Discharge) 09/03/2024 Travel 08/23/2024 Telephone [facility] [address] [place] [address] Rylee Rocha MD Appointment Reminder 08/21/2024 Orders Only [facility] [address] [place] [address] Rylee Rocha MD 08/19/2024 9:26 AM CDT - 08/19/2024 11:35 AM CDT [facility] [address] [place] [address] Sai Faria DO Fall Discharge Disposition: Home with Home Health Care 08/19/2024 Travel from Last 3 Months Immunizations Immunization [...] = 0.6 oz pur e alcohol) Social [facility] Utilities Answer Date Recorded In the past 12 months has e [employer] gas, oil, or water [employer] threatened to shut off services in your [...] place to sleep or slept in a prison (including now)? No 05/16/2023 Housing Stability Vital Sign Answer Alex e Recorded In the last 12 months, was t here a time when you were not able to pay the mortgage or rent on time? No 06/18/2024 In the past 12 months, how m any times have you moved where you were living? 1 06/18/2024 At any time in the past 12 m [facility], were you homeless or living in a prison (including now)? No 06/18/2024 Comments No Sex and Gender Information Value Date Recorded Sex Assigned at Female 03/23/2024 12:06 PM [employer] Legal Sex Female 3:27 AM CDT Gender Identity Female 02/11/2023 3:50 PM [employer] Sexual Orientation Not on file Last Filed [...] 11/22/2024 3:00 PM CDT [facility] [address] [place] [phone] Sergio Ahn PA-C [address] [place] [address] Health Maintenance Due Date Last Done Comments [...] 60-74 years 1-dose series) 2020 COVID-19 Vaccine (1 - season) 2023 Hemoglobin A1C 12/13/2024 06/13/2024, [...] upon discharge Lifestyle No Crystal Simms RN Patient will return to prior living situation and remain independent in ADLs upon discharge from hospital Lifestyle Yes Edda Wolff RN Note: Will be returning home and has assistance from boyfriend if needed Medical Devices Implanted Type Area Plate Glass Grinder Device Identifier Shelf Expiration Date Model / Serial / Lot Graft Graft Description:Left arm fistula Iol Burt Sn60wf - [id number] Implanted:Qty: 1 on 02/07/2018 by Basim Moore MD at [facility] Lens Right: Eye [employer] 10/21/2022 SN60WF / [id number] / N/A Description:Implant verified by Iol Burt Sn60wf - [id number] Implanted:Qty: 1 on 03/07/2018 by Basim Moore MD at [facility] Lens Left: Eye [employer] 10/21/2022 SN60WF / [id number] / N/A Description:Lens verified pe r surgeon and chart Procedures Procedure Name Priority Date/Time Associated Diagnosis Comments CT HEAD WO CON STAT 09/27/2024 11:27 PM CDT XR CHEST PORTABLE STAT 09/27/2024 11: 27 PM CDT AMYLASE STAT 09/27/2024 11:02 PM [...] CDT CT ABD+PEL WO CON STAT 09/03/2024 12: 46 PM CDT LIPASE STAT 09/03/2024 12:23 PM [...] UP LT Today 07/23/2024 2:[address] CHEST+ABD+PEL WO CON STAT 07/17/19 7:34 AM CDT LIPID PANEL Routine 06/14/2024 4:23 [...] 11:50 PM Narrative 09/27/2024 11:54 PM CDT [address] [place] [address] EXAMINATION: CT HEAD WO CON EXAM DATE: [...] Procedure Note Reynaldo Cline DO - 09/27/[address] [place] [address] EXAMINATION: CT HEAD WO CON EXAM DATE: [...] 11:49 PM Narrative 09/27/2024 11:52 PM CDT [address] [place] [address] Examination: Chest x-ray 1 view Exam Date/Time: [...] Procedure Note Edison Kohli MD - 09/27/2024 [place] [id number] [place] [address] Examination: Chest x-ray 1 view Exam Date/Time: [...] - 36.5 SEC 09/27/2024 11:16 PM CDT [facility] 09/27/2024 11:0 2 PM CDT us Arsalan Blas DO LABORATORY Final Result Performing Organization Address City/State/[facility] Co de Phone Number [facility] [address] [place] [address], * PROTIME/INR, VENOUS (09/27/2024 11:02 PM CDT) Only the most recent of2 resultswithin the time period is included. PROTIME 11.5 9.4 - 12.5 SEC 09/27/2024 11:16 PM CDT [facility] INR 1.0 0.8 - 1.0 09/27/2024 11:16 PM CDT [facility] 09/27/2024 11:0 2 PM CDT Arsalan Blas DO LABORATORY Final Result Performing Organization Address [facility] de Phone Number [facility] [address] [place] [address], * (ABNORMAL) COMPREHENSIVE METABOLIC PANEL (09/27/2024 11:02 PM CDT) Only the most recent of4 resultswithin the time period is included. SODIUM S/P/B 132(L) 136 - 145 MMOL/L 09/27/2024 11:49 PM CDT [facility] POTASSIUM S/P/B 3.3(L) 3.5 - 5.1 MMOL/L 09/27/2024 11:49 PM CDT [facility] CHLORIDE S/P/B 98 98 - 107 MMOL/L 09/27/2024 11:49 PM CDT [facility] CO2 25.5 21.0 - 32.0 MMOL/L 09/27/2024 11:49 PM CDT [facility] GLUCOSE 128(H) 70 - 99 MG/DL 09/27/2024 11:49 PM CDT [facility] Comment: FASTING GLUCOSE 100 TO 125 MG/DL IS CONSISTENT WITH IMPAIRED FASTING GLUCOSE. FASTING GLUCOSE >125 MG/DL IS CONSISTENT WITH DIABETES. RANDOM GLUCOSE >200 MG/DL WITH HYPERGLYCEMIC SYMPTOMS IS CONSISTENT WITH DIABETES. PER ADA GUIDELINES BUN 16 6 - 24 MG/DL 09/27/2024 11:49 PM T [facility] CREATININE S/P/B 5.83(H) 0.55 - 1.02 MG/DL 09/27/2024 11:49 PM [facility] CALCIUM S/P/B 10.2 8.4 - 10.5 MG/DL 09/27/2024 11:49 PM [facility] BILIRUBIN TOTAL S/P/B 0.3 0.2 - 1.0 MG/DL 09/27/2024 11:49 PM [facility] Comment: THIS ASSAY IS NOT RECOMMENDED FOR PATIENTS UNDERGOING TREATMENT WITH ELTROMBOPAG DUE TO THE POTENTIAL FOR FALSELY ELEVATED RESULTS. ALKALINE PHOSPHATASE S/P/B 70 50 - 130 U/L 09/27/2024 11:49 PM [facility] AST 14(L) 15 - 37 U/L 09/27/2024 11:49 PM [facility] ALT 11(L) 14 - 59 U/L 09/27/2024 11:49 PM [facility] TOTAL PROTEIN S/P/B 6.9 6.4 - 8.2 G/DL 09/27/2024 11:49 PM [facility] ALBUMIN S/P/B 3.2(L) 3.4 - 5.0 G/DL 09/27/2024 11:49 PM [facility] ANION GAP 8.5 5.0 - 15.0 MMOL/L 09/27/2024 11:49 PM [facility] OSMOLALITY (CALC) 277 MOSM/KG 025 11:49 PM [facility] Comment:REFERENCE RANGE NOT ESTABLISHED GFR ESTIMATE 8(L) >89 ML/MIN/1. 73 M2 09/27/2024 11:49 PM [facility] GFR NOTES GFR REFERENCE S: 09/27/2024 11:49 PM [facility] Comment: THE ESTIMATED GFR IS [...] ml/min/1.73 m2 09/27/2024 11:0 2 PM CDT us Arsalan Blas DO LABORATORY Final Result [facility] [address] [place] [address], * (ABNORMAL) CBC W/DIFF AUTOMATED (09/27/2024 11:02 PM CDT) Only the most recent of4 resultswithin the time period is included. WBC 17.36(H) 4.00 - 10.80 x10'3/uL 09/27/2024 11:14 PM CDT [facility] RBC 4.28 4.10 - 5.40 x10'6/uL 09/27/2024 11:14 PM CDT [facility] HGB 12.2 12.0 - 16.0 G/DL 09/27/2024 11:14 PM CDT [facility] HCT 37.0 36.0 - 47.0 % 09/27/2024 11:14 PM CDT [facility] MCV 86.4 78.0 - 100.0 FL 09/27/2024 11:14 PM CDT [facility] MCH 28.5 27.0 - 31.0 PG 09/27/2024 11:14 PM CDT [facility] MCHC 33.0 33.0 - 36.0 G/DL 09/27/2024 11:14 PM CDT [facility] RDW 13.4 11.5 - 14.5 % 09/27/2024 11:14 PM CDT [facility] PLT 302 150 - 350 x10'3/uL 09/27/2024 11:14 PM CDT [facility] MPV 9.7 7.4 - 10.4 FL 09/27/2024 11:14 PM CDT [facility] CBC COMMENT NORMAL REFERENCE RANGE NOT ESTABLISHED FOR THE PROPORTIONAL LEUKOCYTE DIFFERENTIAL. 09/27/2024 11:14 PM CDT [facility] NEUTROPHILS % 93.5 % 09/27/2024 11:34 PM CDT [facility] LYMPHOCYTES % 2.1 % 09/27/2024 11:34 PM CDT [facility] MONOCYTES % 3.4 % 09/27/2024 11:34 PM CDT [facility] EOSINOPHILS % 0.1 % 09/27/2024 11:34 PM CDT [facility] BASOPHILS % 0.5 % 09/27/2024 11:34 PM CDT [facility] IMMATURE GRANS % 0.4 % 09/28/19 11:34 PM CDT [facility] NRBC % 0.0 % 09/27/2024 11:34 PM CDT [facility] ABS. NEUTROPHILS 16.23(H) 1.60 - 8.30 x10'3/uL 09/27/2024 11:34 PM CDT [facility] ABS. LYMPHOCYTES 0.36(L) 0.80 - 4.70 x10'3/uL 09/27/2024 11:34 PM CDT [facility] ABS. MONOCYTES 0.59 0.00 - 1.50 x10'3/uL 09/27/2024 11:34 PM CDT [facility] ABS. EOSINOPHILS 0.02 0.00 - 0.40 x10'3/uL 09/27/2024 11:34 PM CDT [facility] ABS. BASOPHILS 0.09 0.00 - 0.20 x10'3/uL 09/27/2024 11:34 PM CDT [facility] ABS. IMMATURE GRANULOCYTES 0.07(H) 0.00 - 0.03 x10'3/uL 09/27/2024 11:34 PM CDT [facility] ABS. NUCLEATED RBC'S 0.00 0.00 - 0.01 x10'3/uL 09/27/2024 11:34 PM CDT [facility] PLT MORPH. NORMAL 09/27/2024 11:34 PM CDT [facility] RBC MORPHOLOGY NORMAL 09/27/2024 11:34 PM CDT [facility] 09/27/2024 11:0 2 PM CDT us Arsalan Blas DO LABORATORY Final Result Performing Organization Address City/[facility]/[place] [address], [place] [phone] * AMYLASE (09/27/2024 11:02 PM CDT) AMYLASE S/P/B 48 25 - 115 UNITS/L 09/27/2024 11:49 PM CDT [facility] 09/27/2024 11:0 2 PM CDT us Arsalan Blas DO LABORATORY Final Result Performing Organization Address [facility] [place] [address], [place] [phone] * LIPASE (09/27/2024 11:02 PM CDT) Only the most recent of3 resultswithin the time period is included. LIPASE 25 16 - 77 UNITS/L 09/27/2024 11:49 PM CDT [facility] 09/27/2024 11:0 2 PM CDT us Arsalan Blas DO LABORATORY Final Result Performing Organization Address City/[facility]/ZIP Co de Phone Number [facility] [address] [place] [address], [place] [phone] * (ABNORMAL) POCT glucose (09/27/2024 10:26 PM CDT) GLUCOSE POC 104(H) 70 - 99 MG/DL 09/27/2024 11:40 PM CDT [facility] 09/27/2024 10:2 6 PM CDT us Attending Physician Emergency MD POCT ORDERABLES - DEVICE Final Result [facility] [address] [place] [address], * TROPONIN, QUANT (09/23/2024 9:29 PM CDT) Only the most recent of2 resultswithin the time period is included. 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1960 Requested By: ANGELO NAVA Order Number: [id number] Reading MD: Sai Blake Measurements Intervals [place] Rate: 74 P: 39 HI: 213 QRS: 62 QRSD: 89 T: 124 QT: 403 QTc: 449 Interpretive Statements SINUS RHYTHM WITH FIRST DEGREE AV BLOCK INDETERMINATE AXIS NONSPECIFIC T-WAVE ABNORMALITY Poor R Wave Progression - r/o old awmi Procedure Note Sai Blake MD - 09/24/2024 [facility]-ED Test Date: 2024-09-23 Pat Name: TYSON SMITH Department: 70 Room: EXAM NN Gender: Female 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1960 Requested By: ANGELO NAVA Order Number: [id number] Reading MD: Sai Blake Measurements Intervals [place] Rate: 74 P: 39 HI: 213 QRS: 62 QRSD: 89 T: 124 QT: 403 QTc: 449 Interpretive Statements SINUS RHYTHM WITH FIRST DEGREE AV BLOCK INDETERMINATE AXIS NONSPECIFIC T-WAVE ABNORMALITY Poor R Wave Progression - r/o old awmi us Angelo Nava MD ECG ORDERABLES Final Result Performing Organization Address City/State/[facility] Co de Phone Number [facility] * CT ABD+PEL W IV CON [...] 8:18 PM Narrative 09/23/2024 9:[address] [address] Examination: CT abdomen and pelvis with IV [...] atelectasis. Few small scattered calcified granulomas.Partially visualized jucge-tm-wdojejwe right-sided pleural effusion. Small left-sided pleural effusion [...] Procedure Note Hank Samano MD - 09/23/[address] [address] Examination: CT abdomen and pelvis with IV [...] to atelectasis. Few smallscattered calcified granulomas.Partially visualized ckwia-qa-xkoacuusxhgya-sided pleural effusion. Small left-sided pleural effusion ispartially [...] 12:55 PM Narrative 09/03/2024 1:27 PM CDT [facility] [address] [place] [address] Examination: CT of the abdomen and pelvis [...] the abdominal aorta is normal. Procedure Note Jerardo Singleton MD - 09/03/2024 [facility] [address] [place] [address] Examination: CT of the abdomen and pelvis [...] - 192 U/L 08/19/2024 10:55 AM CDT [facility] 08/19/2024 10:2 9 AM CDT us Sai Faria DO LABORATORY Final Result [facility] [address] [place], [place] [id number], * CT FACIAL BONES WO CON (08/19/2024 [...] 10:19 AM Narrative 08/19/2024 10:36 AM CDT [address] [place] [address] EXAMINATION: CT HEAD WO CON, CT FACIAL BONES WO CON [id number] INDICATIONS: FALL LAST NIGHT, BRUISING OF LEFT [...] Procedure Note Haseeb Pierre MD - 08/19/[address] [place] [address] EXAMINATION: CT HEAD WO CON, CT FACIAL BONES WO CON [id number] INDICATIONS: FALL LAST NIGHT, BRUISING OF LEFT [...] PM CDT Narrative 07/18/2024 9:27 PM CDT [facility] AVF Pat.Name: TYSON SMITH Pat.ID: [id number] .Date: 07/18/2024 Refer.MD: NASIR LEYVA Exam Time: 1:53:00 PM Study Type:PVI DIALYSIS AVF Height: 165 cm Age: 4 1960,64Y Sex: F Sonogrphr: Alex Damon, RVT Pat. Stat.:Inpatient Room: 458 ICD - 9: Z09 Follow-up post-op CPT - 4: 09328 Arterial Duplex UE Reason for Study:Follow-up post-op [...] - ++++++++++++++++++++++++++++++++++++ MEASUREMENTS: ++++++++++++++++++++++++++++++++++++ GRAFT Left Prox [place] Brachiocephalic:AV Fistula Aury Vessel PSV 183 cm/s [...] Procedure Note Rylee Rocha MD - 07/18/2024 [facility] AVF Pat.Name: TYSON SMITH Pat.ID: [id number] .Date: 07/18/2024 Refer.MD: NASIR LEYVA Exam Time: 1:53:00 PM Study Type:PVI DIALYSIS AVF Height: 165 cm Age: 4 1960,64Y Sex: F Sonogrphr: Alex Damon RVT Pat. Stat.:Inpatient Room: 458 ICD - 9: Z09 Follow-up post-op CPT - 4: 58458 Arterial Duplex UE Reason for Study:Follow-up post-op [...] - ++++++++++++++++++++++++++++++++++++ MEASUREMENTS: ++++++++++++++++++++++++++++++++++++ GRAFT Left Prox [place] Brachiocephalic:AV Fistula Aury Vessel PSV 183 cm/s [...] PM Rylee Rocha M.D. Nasir Leyva MD VAS Final Result * CT CHEST+ABD+PEL WO CON (07/16/2024 7:34 [...] 7:44 AM Narrative 07/16/2024 8:18 AM CDT [address] [place] [address] EXAMINATION: CT CHEST+ABD+PEL WO CON, 07/16/2024 7:44 [...] Procedure Note Hank Samano MD - 07/16/2024 [place] [id number] [place] [address] EXAMINATION: CT CHEST+ABD+PEL WO CON, 07/16/2024 7:44 [...] By: Hank Samano MD, 07/16/2024 7:44 AM Jamie Schumacher MD CT Final Result * LIPID PANEL (06/14/2024 4:23 AM CDT) CHOLESTEROL 234 MG/DL 06/14/2024 5:08 AM CDT [facility] Comment:BORDERLINE HIGH: 200 -239 TRIGLYCERIDES 198 MG/DL 06/14/2024 5:08 AM CDT [facility] Comment:150-199 BORDERLINE H IGH HDL 60 >49 MG/DL 06/14/2024 5:08 AM CDT [facility] LDL (CALCULATED) 134 MG/DL 06/15/19 5:08 AM CDT [facility] Comment:130-159 BORDERLINE H IGH VLDL CALCULATION 40 MG/DL 06/15/19 25 5:08 AM CDT [facility] Comment:REFERENCE RANGE NOT ESTABLISHED CHOL/HDL RATIO 3.9 06/14/2024 5:08 AM CDT [facility] Comment:REFERENCE RANGE NOT ESTABLISHED LDL/HDL 2.2 06/14/2024 5:08 AM CDT [facility] Comment:REFERENCE RANGE NOT ESTABLISHED NON HDL CHOLESTEROL 174 MG/DL 06/14/2024 5:08 AM CDT [facility] Comment:REFERENCE RANGE NOT ESTABLISHED 06/14/2024 4:23 AM CDT [facility] [place] MD LABORATORY Final Resul t Performing Organization Address [facility]/ZIP Co de Phone Number [facility] [address] [place] [address], [id number] * (ABNORMAL) HEMOGLOBIN, GLYCATED (06/13/2024 8:25 AM CDT) HGB A1C 6.7(H) <5.7 % 06/13/2024 2:54 PM CDT [facility] ESTIMATED AVG GLUCOSE 146(H) 74 - 114 MG/DL 06/13/2024 2:54 PM CDT [facility] 06/13/2024 8:25 AM CDT Ami Campo NP LABORATORY Final Result Performing Organization Address [facility] Co de Phone Number [facility] [address] [place] [address], [place] [phone] * (ABNORMAL) HEPATITIS PANEL,ACUTE (11/26/2019 12:09 PM CDT) HEPATITIS B SURFACE AG NON-REACT REFUGIO NON-REACT REFUGIO 11/27/2019 1:29 AM CDT [facility] Comment:HBsAg NOT DETECTED. HEP B CORE IGM NON-REACT REFUGIO NON-REACT REFUGIO 11/27/2019 1:29 AM CDT [facility] Comment: IgM ANTI HBc NOT DETECTED. DOES NOT EXCLUDE THE POSSIBILITY OF EXPOSURE TO OR INFECTION WITH HBV. NO RETEST REQUIRED. HIGH DOSES OF BIOTIN MAY INTERFERE WITH THIS TEST RESULT. CORRELATION TO CLINICAL HISTORY AND PRESENTATION RECOMMENDED. HAV IGM NON-REACT REFUGIO NON-REACT REFUGIO 11/27/2019 1:29 AM CDT [facility] Comment: IgM ANTI HAV NOT DETECTED. DOES NOT EXCLUDE THE POSSIBILITY OF EXPOSURE TO OR INFECTION WITH HAV. LEVELS OF IgM ANTI HAV MAY BE BELOW THE CUTOFF IN EARLY INFECTION. HEPATITIS C AB REACTIVE( A) NON-REACT REFUGIO 11/27/2019 1:29 AM CDT [facility] Comment: PRESUMPTIVE EVIDENCE OF ANTIBODIES TO HCV. CONSIDER ORDERING HCV RNA DETECTION AND QUANTIFICATION BY RT-PCR ANALYSIS ON A NEW SPECIMEN. 11/26/2019 12:0 9 PM CDT Marlyn Robin MD LABORATORY Final Result [facility] [address] [place] [address], [id number] from Last 3 Months or Most Recently Relevant to Health Maintenance Insurance MEDICAID MEDICARE MEDICARE MEDICAID MEDICAID MEDICARE Advance Directives * [...] 11:40 AM 05/20/2023 4:01 PM Care Teams Excel Developer Relationship Specialty Start Date End Date Jabari Banda MD [address] [place] [address] PCP - General INTERNAL MEDICINE 12/02/15 Rylee Rocha MD [address] [place] [address] Consulting Physician CARDIOVASCULAR DISEASE 10/06/23 Sergio Ahn PA-C [address] [place] [address] PHYSICIAN STAGE ELECTRICIAN HELPER 11/10/23
--- OUTSIDE RECORDS SUMMARY | 2024-10-23 09:53 | XMS_ITS | Encounter Summary ---
Author Organization [facility] Address [address] [place] [address] Care Team Providers Care Claim Specialist Name Role Phone Jabari Banda MD Primary Care Provider [phone] Klaus Ramos MD Unavailable [phone] Rylee Rocha MD Unavailable Sergio Ahn PA-C Unavailable [phone] Encounter Details Date Type Department Care Team (Late st Contact Info) Description 05/06/[address] [facility] Anesthesia [address] [place] [address] Griselda Dawson RN Anesthesia Record Procedure Summary Procedure Name Responsible Anesthesiologist Anesthesia Start Time Anesthesia Stop Time XA A-FIB ABLATION Carla Higuera MD 05/10/23 13 22 05/10/23 1835 Events Date Time Event Comment 05/10/2023 1130 1130 AN Anesthesia Prepped 1322 An Start Patient ID and consent checked and patient reassessed. 1322 An Start Data 1326 Nasal Cannula Applied 1337 Quick Note sleep lab technician team a waiting confirmation of cardiology team. 1343 Preoxygenation 1348 An Induction The patient was reevaluated immediately before moderate or deep sedation use and before anesthesia induction. 1353 An Intubation 1400 Quick Note AUGUST by cardiolo gist 1405 Anesthesia Ready 1513 Quick Note ACT draw. 1518 Quick Note ACT 282. Hepari n 3000 units given by Gerardo WRIGHT. 1533 Quick Note ACT draw. 1538 Quick Note ACT 282 1557 Quick Note ACT - 309 1633 Quick Note ACT - 331 1652 Quick Note ACT - 336 1709 Quick Note ACT - 358 1729 Quick Note ACT 315 1748 Quick Note Isoproterenol s tarted by laborer tree tapping RN 1749 Quick Note ACT 325 1823 An Extubation 182 Face Mask Applied 183 an stop data 1831 Quick Note Patient transpo rted to pacu on SFM 8L O2 and SPO2/HR/EKG/arterial BP monitoring 183 Post Anesthetic Care Handoff I completed my handoff to the receiving nurse during which we: 1. Identified the patient 2. Identified the responsible provider 3. Reviewed the pertinent medical history 4. Discussed the surgical course 5. Reviewed intra-op anesthesia management and issues during anesthesia 6. Set expectations for post-procedure period 7. Allowed opportunity for questions and acknowledgement of understanding. 1834 An Stop Meds * Agents No agents on file. * Blood No blood administrations on file. Lines, Drains, and Airways Type Details Placement Removal Hemodialysis Access Arteriovenous Fistul a; Left; Forearm; Other 07/09/18 1141 by Crys Estes RN 05/11/23 1546 by Tena Davey LPN Peripheral IV Placement Date: 04/21 11/14; Placement Time: 1157; Placed Outside of This Facility?: No; Size: 20 G; Orientation: Right; Location: Hand; Site Prep: Alcohol; Local Anesthetic: None; Inserted By: KYLE Mendes; Insertion attempts: 1; Ultrasound-guided Placement?: No; Patient Tolerance: Tolerated well; Removal Date: 05/11/23; Removal Time: 1738 05/10/23 1157 by Yahaira Maguire RN 05/11/23 1738 by Automatic Discharge Provider ETT Placement Date: 04/21 11/14; Placement Time: 1353; Placed Outside of This Facility?:No; Mask Ventilate: Prior to intubation, Easy; Size (mm) : 7; Endotracheal: Oral; Blade Type: Blake 2; Placement Method: Direct Laryngoscopy (blade type in comment), Cricoid pressure; View Grade: 2; Viewable Anatomy: Epiglottis, Arytenoid, Vocal cords; Insertion Attempts: 1; Placement Verified By: Capnography, Auscultation, Chest Rise; Placed By: SULFIDE HEAD OPERATOR; Extubation Assessment: Suctioned, Tolerated well, Patient spontaneously breathing, Deep breathes w/equal chest movements, Atraumatic; Removal Date: 05/10/23; Removal Time: 182; Removal Person: STANISLAW; Removal Reason: End of Case 05/10/23 1353 by Heide Szymanski CRNA 05/10/23 1823 by Judy Harrell CRNA Arterial Line Placement Date: 04/21 11/14; Placement Time: 1400 (created via procedure documentation); Placed Outside of This Facility?: No; Size: 20; Orientation: Right; Location: Radial; Site Prep: Chlorhexidine; Local Anesthetic: None; Insertion Attempts: 2; Patient Tolerance: Tolerated well; Removal Date: 05/10/23; Removal Time: 191; Removal Reason: Therapy Completed 05/10/23 1400 by Heide Szymanski CRNA 05/10/23 1910 by Anders Chou RN Sanchez Catheter 05/10/23; 1410; No; I & O - Strict I&O or Critically ill requiring I&O Q1-2hrs; 1; Hand hygiene performed, Site cleansed with sterile antiseptic, Sterile gloves, drape and lubricant used, Catheter inserted using aseptic technique, Sanchez care post catheter insertion, Anchoring device applied, Drainage bag secured below level of bladder, Closed system maintained; Stat lock; Straight-tip; 16 Fr.; Per Order 05/10/23 1410 by Waldemar Brown RN 05/10/23 2211 by Savannah Deluca RN Peripheral IV Placement Date: 04/21 11/14; Placement Time: 1410; Placed Outside of This Facility?: No; Size: 20 G; Orientation: Right; Location: Forearm; Site Prep: Alcohol; Local Anesthetic: None; Inserted By: solomon; Insertion attempts: 2; Ultrasound-guided Placement?: Yes; Patient Tolerance: Tolerated well; Removal Date: 05/11/23; Removal Time: 154; Removal Reason: Patient Discharged 05/10/23 1410 by Heide Szymanski CRNA 05/11/23 1546 by Tena Davey LPN documented in this encounter Social History Tobacco Use Types Packs/Day Years [...] Sex Assigned at Female 03/23/2024 12:06 PM TRACK GRINDER Legal Sex Female 3:27 AM CDT Gender Identity Female 02/11/2023 3:50 PM TRACK GRINDER Sexual Orientation Not on file documented as [...] Office Visit [facility] [address] [place] [phone] Sergio Ahn PA-C [address] [place] [address] documented as of this encounter Goals Goal [...] Rule Out 01/08/2024 01/08/2024 01/08/2024 10:52 PM TRACK GRINDER COVID-19 Rule Out 06/18/2024 06/18/2024 06/18/2024 8:01 AM CDT Respiratory Rule Out 06/18/2024 06/18/2024 025 8:01 AM CDT documented as of this encounter Care Teams Claim Specialist Relationship Specialty Start Date End Date Jabari Banda MD [address] [place] [phone] PCP - General INTERNAL MEDICINE 12/02/15 Klaus Ramos MD [address] [place] [phone] [place] Drill Rig Operator CARDIOVASCULAR DISEASE 07/26/18 10/05/23 Rylee Rocha MD [address] [place] [address] Consulting Physician CARDIOVASCULAR DISEASE 10/06/23 Sergio Ahn PA-C [address] [place] [phone] PHYSICIAN BLOOD BANK TECHNOLOGIST 11/10/23 documented as of this encounter
--- OUTSIDE RECORDS SUMMARY | 2024-10-23 09:53 | XMS_ITS | Clinical Summary ---
Author Organization [facility] Address [address] [place] [address] Phone Care Team Providers Care Glaciologist Name Role Phone Provider, None Primary Care Provider Unavailabl e Allergies No known active allergies Medications Eliquis 5 MG Tablet Take 5 mg by mouth 2 times daily. 4 Active B Fspifeg-Y-Xrdhy Acid (Deepa-Vikash Rx) 1 MG Tablet Take [...] Years Used Date Smoking Tobacco: Never Assessed [facility] Utilities Answer Date Recorded In the [...] time in the past 12 m [facility], were you homeless or living in a group home (including now)? Patient declined 03/13/2024 Comments Unknown Sex and Gender Information Value Date Recorded Sex Assigned at Not on file Legal Sex Female 9:03 AM PLUMBING TECHNICIAN Gender Identity Not on file Sexual Orientation Not on file Last Filed Vital Signs Vital Sign Reading Time Taken Comments Blood Pressure 184/65 03/15/2024 2:00 PM PLUMBING TECHNICIAN Pulse 74 03/15/2024 2:00 PM PLUMBING TECHNICIAN Temperature 36.5 C (97.7 F) 03/15/2024 2:00 PM PLUMBING TECHNICIAN Respiratory Rate 18 03/15/2024 2:00 PM PLUMBING TECHNICIAN Oxygen Saturation 97% 03/15/2024 8:02 AM PLUMBING TECHNICIAN Inhaled Oxygen Concentration - - Weight 97.8 kg (215 lb 9.8 oz) 03/14/2024 2:30 P M PLUMBING TECHNICIAN Height 165.1 cm (5' 5) 03/13/2024 2:33 PM PLUMBING TECHNICIAN Body Mass Index 35.88 03/13/2024 2:33 PM PLUMBING TECHNICIAN Plan of Treatment Health Maintenance Due Date [...] PCR VIRAL LOAD Routine 03/15/2024 5:50 AM PLUMBING TECHNICIAN HEMOGLOBIN A1C W/ ESTIMATED GLUCOSE Routine 03/14/2024 4:22 AM PLUMBING TECHNICIAN CMP (COMPREHENSIVE METABOLIC PANEL) 03/13/2024 12:00 AM PLUMBING TECHNICIAN from Last 3 Months or Most Recently Relevant to Health Maintenance Results * Hepatitis C RNA Quant PCR Viral Load (03/15/2024 5:50 AM PLUMBING TECHNICIAN) Pathologist [facility] HCV RNA QUANT PCR NON DETECTED NON DETECTED 03/15/2024 11:56 PM PLUMBING TECHNICIAN [facility] HCV RNA QT LOG10 03/15/2024 11:56 PM PLUMBING TECHNICIAN [facility] Comment: LOG 10 is not applicable. This test was performed using IRON 5800 Real Time PCR. Blood Venipuncture / Unknown 03/15/2024 5:50 AM PLUMBING TECHNICIAN 03/15/2024 5:59 AM PLUMBING TECHNICIAN us Crystal Amador MD IMMUNOLOGY ORDERABLES F inal Result [facility] [address] [place] [address], * (ABNORMAL) Hemoglobin A1C (if indicated) (03/14/2024 4:22 AM PLUMBING TECHNICIAN) Pathologist [facility] HGB-A1C 6.4(H) 4.0 - 6.0 % 03/14/2024 6:12 AM PLUMBING TECHNICIAN [facility] Est Average Glucose 137.0 mg/dL 03/14/2024 6:12 AM PLUMBING TECHNICIAN [facility] Blood Venipuncture / Unknown 03/14/2024 4:22 AM PLUMBING TECHNICIAN 03/14/2024 5:45 AM PLUMBING TECHNICIAN Narrative [facility] - 03/14/2024 6:12 AM PLUMBING TECHNICIAN HEMOGLOBIN A1C: DIABETIC PATIENTS: WELL-CONTROLLED: 6.2 - 7.0 INTERMEDIATE WELL-CONTROLLED: 7.0 - 9.0 POORLY-CONTROLLED: >9.0 Specimens containing greater than 5% of Hemoglobin F may result in lower than expected % HbA1C results. us Jillian Castillo CHARGE ENTRY SPECIALIST, SCRATCHER CHEMISTRY ORDERABLES Final Result [facility] [place] [address] * CMP (Comprehensive Metabolic Panel) (03/13/2024 12:00 AM PLUMBING TECHNICIAN) 03/13/2024 us Provider Scan CHEMISTRY ORDERABLES Final Resul t SCAN from Last 3 Months or Most Recently Relevant to Health Maintenance Insurance [address] [place] [address] MEDICAID [place] MEDICARE Advance Directives * Full Code (Latest Code Status on File) Date Activated Date Inactivated Comments 03/13/2024 6:23 PM CPR-Full Treat ment: FULL ARREST: Attempt Resuscitation/CPR wit intubation and mechanical ventilation. PRE-ARREST: Use entire range of life support measures to stabilize the patient. Care Teams Glaciologist Relationship Specialty Start Date End Date Provider, None [place] PCP - General 03/13/24
--- OUTSIDE RECORDS SUMMARY | 2024-10-23 09:53 | XMS_ITS | Encounter Summary ---
Author Organization [facility] Address [address] [place] [address] Care Team Providers Care Power Generating Plant Operator Name Role Phone Jabari Banda MD Primary Care Provider [phone] Rylee Rocha MD Unavailable Sergio Ahn PA-C Unavailable [phone] Encounter Details Date Type Department Care Team (Late st Contact Info) Description 06/25/2024 Hospital Follow-up Call [facility] Cardiovascular Care Unit [address] [place] [address] Nikki Springer RN Social History Tobacco Use Types Packs/Day Years Used Date Smoking Tobacco: Former Cigarettes 1 30 0 1985 - 05/30/2015 Smokeless Tobacco: Never Comments:Dont smoke Alcohol Use Standard Drinks/Week Comments Not Currently 0 (1 standard drink = 0.6 oz pur e alcohol) Social [facility] Utilities Answer Date Recorded In the past 12 months has e electric, gas, oil, or water [employer] threatened to shut off services in your [...] place to sleep or slept in a long term (including now)? No 05/16/2023 Housing Stability Vital [...] in the past 12 m [facility], were you homeless or living in a long term (including now)? No 06/18/2024 Comments No Sex and Gender Information Value Date Recorded Sex Assigned at Female 03/23/2024 12:06 PM TALENT DIRECTOR Legal Sex Female 3:27 AM CDT Gender Identity Female 02/11/2023 3:50 PM TALENT DIRECTOR Sexual Orientation Not on file documented as of this encounter Functional Status * Are you deaf or do you have serious difficulty hearing Answer Date of Assessment Author Status No 06/18/2024 5:12 PM CDT Lili Reynoso , Nurse Ceo Ziff Davis II Active * Are you blind or do you have serious difficulty seeing, even when wearing glasses? Answer Date of Assessment Author Status No 06/18/2024 5:12 PM CDT Lili Reynoso , Nurse Ceo Ziff Davis II Active * Do you have serious difficulty walking or climbing stairs? Answer Date of Assessment Author Status No 06/18/2024 5:12 PM CDT Lili Reynoso , Nurse Ceo Ziff Davis II Active * Do you have difficulty dressing or bathing? Answer Date of Assessment Author Status No 06/18/2024 5:12 PM CDT Lili Reynoso , Nurse Ceo Ziff Davis II Active * Because of a physical, mental, or emotional condition, do you have difficulty doing errands alone such as visiting a doctor's office or shopping? Answer Date of Assessment Author Status No 06/18/2024 5:12 PM CDT Lili Reynoso , Nurse Ceo Ziff Davis II Active documented as of this encounter Mental Status * Because of a physical, mental, or emotional condition, do you have serious difficulty concentrating, remembering, or making decisions? Answer Entry Date Author Status No 06/18/2024 5:12 PM CDT Lili Reynoso , Nurse Ceo Ziff Davis II Active documented in this encounter Plan of Treatment Upcoming Encounters Date Type Department Care Team (Late st Contact Info) Description 11/22/2024 3:00 PM CDT Office Visit [facility] [address] [place] [phone] Sergio Ahn PA-C [address] [place] [address] documented as of this encounter Goals Goal [...] on filedocumented in this encounter Care Teams Power Generating Plant Operator Relationship Specialty Start Date End Date Jabari Banda MD [address] [place] [address] PCP - General INTERNAL MEDICINE 12/02/15 Rylee Rocha MD [address] [place] [address] Consulting Physician CARDIOVASCULAR DISEASE 10/06/23 Sergio Ahn PA-C [address] [place] [address] PHYSICIAN FOREST PATHOLOGY PROFESSOR 11/10/23 documented as of this encounter
--- OUTSIDE RECORDS SUMMARY | 2024-10-23 09:53 | XMS_ITS | Encounter Summary ---
Author Organization [facility] Address [address] [place] [address] Care Team Providers Care Tap Builder Name Role Phone Jabari Banda MD Primary Care Provider [phone] Klaus Ramos MD Unavailable [phone] Rylee Rocha MD Unavailable Sergio Ahn PA-C Unavailable [phone] Encounter Details Date Type Department Care Team (Latest Contact Info) Description 08/16/2023 BIlprospekt Message Enc [facility] Cardiovascular Care Unit [address] [place] [address] Dev, [facility] Provider discharge follow up call Social History [...] place to sleep or slept in a assisted (including now)? No 05/16/2023 Housing Stability Vital Sign Answer Alex e Recorded In the last 12 months, was t here a time when you were not able to pay the mortgage or rent on time? No 08/12/2023 In the past 12 months, how m any times have you moved where you were living? 1 08/12/2023 At any time in the past 12 m [facility], were you homeless or living in a assisted (including now)? No 08/12/2023 Comments No Sex and Gender Information Value Date Recorded Sex Assigned at Female 03/23/2024 12:06 PM LEAD TECHNICIAN Legal Sex Female 3:27 AM CDT Gender Identity Female 02/11/2023 3:50 PM LEAD TECHNICIAN Sexual Orientation Not on file documented as of this encounter Functional Status * Are you deaf or do you have serious difficulty hearing Answer Date of Assessment Author Status No 08/12/2023 7:54 PM CDT Gonzales Isaebl R N Active * Are you blind [...] Office Visit [facility] [address] [place] [phone] Sergio Ahn PA-C [address] [place] [phone] documented as of this encounter Goals Goal [...] Rule Out 01/08/2024 01/08/2024 01/08/2024 10:52 PM LEAD TECHNICIAN COVID-19 Rule Out 06/18/2024 06/18/2024 06/18/2024 8:01 AM CDT Respiratory Rule Out 06/18/2024 06/18/2024 025 8:01 AM CDT documented as of this encounter Care Teams Tap Builder Relationship Specialty Start Date End Date Jabari Banda MD [address] [place] [address] PCP - General INTERNAL MEDICINE 12/02/15 Klaus Ramos MD [address] [place] [phone] [place] Business Investor CARDIOVASCULAR DISEASE 07/26/18 10/05/23 Rylee Rocha MD [address] [place] [address] Consulting Physician CARDIOVASCULAR DISEASE 10/06/23 Sergio Ahn PA-C [address] [place] [phone] PHYSICIAN HR LEADER 11/10/23 documented as of this encounter
--- OUTSIDE RECORDS SUMMARY | 2024-10-23 09:53 | XMS_ITS | Encounter Summary ---
Author Organization [facility] Address [address] [place] [address] Care Team Providers Care Building Materials Sales Attendant Name Role Phone Jabari Banda MD Primary Care Provider [phone] Klaus Ramos MD Unavailable [phone] Rylee Rocha MD Unavailable Sergio Ahn PA-C Unavailable [phone] Encounter Details Date Type Department Care Team (Latest Contact Info) Description 05/23/2023 SparkWords Message Enc [facility] Cardiovascular Care Unit [address] [place] [address] Dev, [facility] Provider discharge follow up call Social History [...] place to sleep or slept in a nursing home (including now)? No 05/16/2023 Comments No Sex and Gender Information Value Date Recorded Sex Assigned at Female 03/23/2024 12:06 PM POWER WOOD SAWYER Legal Sex Female 3:27 AM CDT Gender Identity Female 02/11/2023 3:50 PM POWER WOOD SAWYER Sexual Orientation Not on file documented as [...] 11/22/2024 3:00 PM CDT [facility] [address] [place] [address] Sergio Ahn PA-C [address] [place] [address] documented as of this encounter Goals Goal [...] Rule Out 01/08/2024 01/08/2024 01/08/2024 10:52 PM POWER WOOD SAWYER COVID-19 Rule Out 06/18/2024 06/18/2024 06/18/2024 8:01 AM CDT Respiratory Rule Out 06/18/2024 06/18/2024 025 8:01 AM CDT documented as of this encounter Care Teams Building Materials Sales Attendant Relationship Specialty Start Date End Date Jabari Banda MD [address] [place] [address] PCP - General INTERNAL MEDICINE 12/02/15 Klaus Ramos MD [address] [place] [address] [place] Rooming House Inspector CARDIOVASCULAR DISEASE 07/26/18 10/05/23 Rylee Rocha MD [address] [place] [address] Consulting Physician CARDIOVASCULAR DISEASE 10/06/23 Sergio Ahn PA-C [address] [place] [address] PHYSICIAN PIANO ACCOMPANIST 11/10/23 documented as of this encounter
--- OUTSIDE RECORDS SUMMARY | 2024-10-23 09:53 | XMS_ITS | Encounter Summary ---
Author Organization [facility] Address [address] [place] [address] Care Team Providers Care Wire Coating Machine Operator Name Role Phone Jabari Banda MD Primary Care Provider [phone] Klasu Ramos MD Unavailable [phone] Rylee Rocha MD Unavailable Sergio Ahn PA-C Unavailable [phone] Encounter Details Date Type Department Care Team (Late st Contact Info) Description 05/23/2023 Hospital Follow-up Call [facility] Cardiovascular Care Unit [address] [place] [address] Nikki Springer, RN Social History [...] place to sleep or slept in a half-way (including now)? No 05/16/2023 Comments No Sex and Gender Information Value Date Recorded Sex Assigned at Female 03/23/2024 12:06 PM PALLET REPAIRER Legal Sex Female 3:27 AM CDT Gender Identity Female 02/11/2023 3:50 PM PALLET REPAIRER Sexual Orientation Not on file documented as [...] 11/22/2024 3:00 PM CDT [facility] [address] [place] [phone] Sergio Ahn PA-C [address] [place] [address] documented as of this encounter Goals Goal [...] Rule Out 01/08/2024 01/08/2024 01/08/2024 10:52 PM PALLET REPAIRER COVID-19 Rule Out 06/18/2024 06/18/2024 06/18/2024 8:01 AM CDT Respiratory Rule Out 06/18/2024 06/18/2024 025 8:01 AM CDT documented as of this encounter Care Teams Wire Coating Machine Operator Relationship Specialty Start Date End Date Jabari Banda MD [address] [place] [address] PCP - General INTERNAL MEDICINE 12/02/15 Klaus Ramos MD [address] [place] [phone] Barn[place] Coffee Grinder CARDIOVASCULAR DISEASE 07/26/18 10/05/23 Rylee Rocha MD [address] [place] [address] Consulting Physician CARDIOVASCULAR DISEASE 10/06/23 Sergio Ahn PA-C [address] [place] [phone] PHYSICIAN PERMASTONE MECHANIC 11/10/23 documented as of this encounter
--- OUTSIDE RECORDS SUMMARY | 2024-10-23 09:53 | XMS_ITS | Clinical Summary ---
Author Organization [facility] Address [address] [place] [address] Care Team Providers Care Headliner Installer Name Role Phone Jabari Banda MD Primary Care Provider [phone] Christine Stevens RN Unavailable [phone] Mily Vance RENEWALS MANAGER-ROOTER OPERATOR Unavailable + Darby Del Real RN Unavailable Unavailable Kaity Bowens Unavailable Unavailable Source Comments [facility],non-owned Affiliates and Associated Physician Practices is amultiple site organization consisting of ambulatory clinics and hospital sitesin [place], [place], [place] and [place]. This disclosure is being madepursuant to the Care Everywhere program and may not contain all information available regarding this patient. Last updated 17.[facility] [employer] Allergies No known active allergies Medications * [...] failure 016 Overview (08/22/2015): Added per clinical apartment leasing specialist per dc summary Dr. Lee . 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 ELECTRICAL SUBCONTRACTOR Gender Identity Not on file Sexual Orientation [...] 5:40 AM CDT) Hepatitis C Virus Quantitation [id number] IU/mL 05/07/2015 9:18 AM CDT [facility] Hepatitis C Virus Log 10 6.037 log10 IU/mL 05/07/2015 9:18 AM CDT [facility] ([facility]) Test Information Comment 05/07/2015 9:18 AM CDT [facility] Comment: The quantitative range of [...] CDT 05/04/2015 5:46 AM CDT Narrative [facility] ([facility]) - 05/07/2015 9:18 AM CDT Performed at: [address] [place] [id number] Grain Merchandiser: Conrado Keane MD, Phone: [phone] Nunu Reynoso MD LAB - CHEMISTRY ORDERABLES Final Result [facility]) [address] [place] [address] from Last 3 Months or Most Recently [...] 2:49 PM 05/01/2015 3:17 PM Care Teams Headliner Installer Relationship Specialty Start Date End Date Jabari Banda MD [address] [place] [address] PCP - General Internal Medicine 05/01/15 Christine Stevens, RN Clam Bed Laborer 05/02/15 Mily Vance, RENEWALS MANAGER-ROOTER OPERATOR [address] [facility] [address] [place] [phone] Registered Nurse - Cardiopulmonary Rehab 08/04/15 Darby Del Real RN Registered Nurse - Cardiopulmonary Rehab 08/04/15 Kaity Bowens Dialysis Liaison 08/14/15
--- OUTSIDE RECORDS SUMMARY | 2024-10-23 09:53 | XMS_ITS | Encounter Summary ---
Author Organization [facility] Address [address] [place] [address] Care Team Providers Care Racing Mechanic Name Role Phone Jabari Banda MD Primary Care Provider [phone] Klaus Ramos MD Unavailable [phone] Rylee Rocha MD Unavailable Sergio Ahn PA-C Unavailable [phone] Encounter Details Date Type Department Care Team (Late st Contact Info) Description 08/18/2022 MyChart Message Enc [facility] [address], [place] [address] Mychart, [facility] Provider Air Quality Message Social History Tobacco [...] Sex Assigned at Female 03/23/2024 12:06 PM SED SPECIAL EDUCATION TEACHER Legal Sex Female 3:27 AM CDT Gender Identity Female 02/11/2023 3:50 PM SED SPECIAL EDUCATION TEACHER Sexual Orientation Not on file COVID-19 Exposure [...] Description 11/22/2024 3:00 PM CDT [facility] [address] [place] [phone] Sergio Ahn PA-C [address] [place] [address] documented as of this encounter Goals Goal [...] Rule Out 01/08/2024 01/08/2024 01/08/2024 10:52 PM SED SPECIAL EDUCATION TEACHER COVID-19 Rule Out 06/18/2024 06/18/2024 06/18/2024 8:01 AM CDT Respiratory Rule Out 06/18/2024 06/18/2024 025 8:01 AM CDT documented as of this encounter Care Teams Racing Mechanic Relationship Specialty Start Date End Date Jabari Banda MD [address] [place] [phone] PCP - General INTERNAL MEDICINE 12/02/15 Klaus Ramos MD [address] [place] [phone] [place] Document Imaging Specialist CARDIOVASCULAR DISEASE 07/26/18 10/05/23 Rylee Rocha MD [address] [place] [address] Consulting Physician CARDIOVASCULAR DISEASE 10/06/23 Sergio Ahn PA-C [address] [place] [phone] PHYSICIAN STAFF GENETIC COUNSELOR 11/10/23 documented as of this encounter
--- NOTE | 2024-10-23 10:01 | ED_ITS ---
HPI - Nausea/Vomiting/Diarrhea General Chief complaint: Nausea/Vomiting/Diarrhea <TIM Genao Last Filed: 10/23/24 16:21> Stated complaint: gastroparesis attack <Yahaira Benson PA-C - Last Filed: 10/23/24 16:21> Time Seen by Provider: 10/23/24 09:54 <TIM Genao Last Filed: 10/23/24 16:21> Source: patient and old records reviewed <TIM Genao Last Filed: 10/23/24 16:21> Mode of arrival: ambulatory <TIM Genao Last Filed: 10/23/24 16:21> Limitations: no limitations <TIM Genao Last Filed: 10/23/24 16:21> History of Present Illness HPI Narrative: Patient is a 64 y/o female, with PMH of DM, ESRD on HD MWF, COPD, CHF, who presents to the ED with concern for a gastroparesis attack.Patient reports history of gastroparesis and is prescribed oral Reglan. She was hospitalized here last week for pneumonia and was seen by GI at that time for her gastroparesis as well. They recommended intranasal Reglan for home to be taken before meals, however patient reports this medication was extremely expensive and she was unable to afford it. She reports having several day history of nausea and vomiting, difficulty keeping down any food or drink. Reports constipation, epigastric discomfort. Denies fevers. <TIM Genao Last Filed: 10/23/24 16:21> Related Data Home medications: Home Medications ?Medication ?Instructions ?Recorded ?Confirmed ?Last Taken ?Type atorvastatin 20 mg tablet 20 mg PO HS 06/17/19 5 10/07/24 History clopidogrel 75 mg tablet 75 mg PO DAILY 06/17/1909/2110/07/24 History hydrocodone 7.5 mg-acetaminophen 1 tablet PO QID PRN P ain 06/17/19 10/08/24 Unknown History 325 mg tablet insulin aspar prot-insulin aspart 65 unit subcut BID 0 06/17/19 10/08/24 10/08/24 History 100 unit/mL (70-30) subcutaneous pen (Novolog Mix 70-30FlexPen U-100) levothyroxine 175 mcg tablet 175 mcg PO DAILY 06/17/19 10/08/24 10/07/24 History omeprazole 40 mg capsule,delayed 40 mg PO DAILY 10/08/24 10/07/24 History release paroxetine HCl 40 mg tablet 40 mg PO DAILY 06/17/1910/07/24 History sevelamer carbonate 800 mg tablet See Rx Instructions .Route .COMPLEX 06/17/19 10/08/24 10/07/24 History budesonide 160 mcg-glycopyr 9 2 inh inhalation BID 02/1010/08/24 09/07/24 History mcg-formot 4.8 mcg/actuation HFA inhaler (Breztri Aerosphere) montelukast 10 mg tablet 10 mg PO DAILY 01/02/2109/2110/07/24 History vitamin B complex-vitamin C-folic 0.8 tablet PO DAILY 01/02/21 10/08/24 10/07/24 History acid 0.8 mg tablet (Deepa-Vikash) amlodipine 5 mg tablet 5 mg PO DAILY 10/08/2410/0810/08/24 History apixaban 5 mg tablet (Eliquis) 5 mg PO Q12H 10/08/24 0 10/08/24 10/08/24 History diltiazem HCl 180 mg 180 mg PO Q24H 10/08/2409/2110/07/24 History capsule,extended release 24 hr, controlled (DILT-XR) metoclopramide HCl 10 mg tablet 10 mg PO PRN 10/08/24 10/08/24 10/01/24 History ondansetron 4 mg disintegrating 4 mg PO PRN 10/08/24 0 10/08/24 10/01/24 History tablet umeclidinium 62.5 mcg-vilanterol 1 inh inhalation Q24H 10/08/24 10/08/24 10/07/24 History 25 mcg/actuation powdr for inhalation (Anoro Ellipta) <Yahaira Benson PA-C - Last Filed: 10/23/24 16:21> Allergies/Adverse reactions: Allergies Allergy/AdvReac Type Severity Reaction Status Date / Time No Known Allergies Allergy Verified 10/23/24 10:03 <Yahaira Benson PA-C - Last Filed: 10/23/24 16:21> Review of Systems 2 Review of Systems: All systems reviewed & are unremarkable except as noted in HPI. <Yahaira Benson PA-C - Last Filed: 10/23/24 16:21> All systems reviewed & are unremarkable except as noted in HPI and below < Yahaira Benson PA-C - Last Filed: 10/23/24 16:21> [facility] Past Medical History Medical History: Medical History (Updated 10/23/24 @ 15:35 by Emi Stevens APRN) CHF (congestive heart failure) Anxiety and depression History of CVA (cerebrovascular accident) VIJAY (obstructive sleep apnea) CAD (coronary artery disease) Hypothyroidism Other chronic pain Incomplete tear of left rotator cuff Chronic left shoulder pain Anemia Hypertension Hyperlipidemia ESRD (end stage renal disease) on dialysis COPD (chronic obstructive pulmonary disease) Diabetes mellitus <Yahaira Benson PA-C - Last Filed: 10/23/24 16:21> Surgical History Surgical History: Surgical History S/P cholecystectomy History of thyroid surgery History of x2 Hx of appendectomy <Yahaira Benson PA-C - Last Filed: 10/23/24 16:21> Family History Family History: Family History Father Diabetes mellitus Hypertension Cerebrovascular accident Family history of arthritis Family history of malignant neoplasm Mother Family history of malignant neoplasm Family history of diabetes mellitus in first degree relative <Yahaira Benson PA-C - Last Filed: 10/23/24 16:21> Social History Social History: Social History Smoking packs per day: 0.5 Smoking cigarettes per day: 10.0 Years smoked: 20 Smoking pack-years: 10.00 Smoking status: Former smoker Tobacco type: cigarettes Second hand tobacco smoke exposure: No Alcohol intake: former Substance use: never Substance use type: former substance user and marijuana Lack of Transportation: No Lack of Food: Never True Current Housing: I Have Housing Concerned About Future Housing: No Difficulty Paying Gas/Electric Bills: No Difficulty Paying for Meds: No Currently Unemployed: No Education: Associate Degree Difficulty w/ Childcare or Family Care: No Living arrangements: with family Spiritual care concerns: No <Yahaira Benson PA-C - Last Filed: 10/23/24 16:21> Exam 2 Narrative: GENERAL: Appears older than stated age, obese with BMI of 30.0, non-toxic, in no acute distress. HEAD: Normocephalic, atraumatic. RESPIRATORY: Airway patent, respirations nonlabored. Clear to auscultation bilaterally, no rales, rhonchi, wheezing. CARDIOVASCULAR: Regular rate and rhythm without murmurs, rubs, or gallops. ABDOMINAL: Soft, mild tenderness to palpation in epigastric region, no rebound, nondistended. Normoactive BS. MUSCULOSKELETAL: Moves all extremities. No gross deformities. SKIN: Warm, dry, normal color. NEURO: A&O X3. Speech clear. No ataxic movements. PSYCHIATRIC: Appropriate mood and affect. Normal interaction. <Yahaira Benson PA-C - Last Filed: 10/23/24 16:21> Course GEOTHERMAL PLANT MANAGER/PA Physician Supervision I did review the patient's chart and agreed with the management. <Eric Puente MD - Last Filed: 10/23/24 14:51> Vital Signs Vital signs: Vital Signs Temperature 98.4 F 10/23/24 09:58 Pulse Rate 76 10/23/24 09:58 Respiratory Rate 18 10/23/24 09:58 Pulse Oximetry 99 10/23/24 09:58 Oxygen Delivery Room Air 10/23/24 09:58 Temperature 97.0 F L 10/23/24 15:44 Pulse Rate 78 10/23/24 15:44 Respiratory Rate 18 10/23/24 15:44 Blood Pressure 186/88 H 10/23/24 15:44 Pulse Oximetry 98 10/23/24 15:44 Oxygen Delivery Room Air 10/23/24 09:58 <Yahaira Benson PA-C - Last Filed: 10/23/24 16:21> Vital Signs Temperature 98.4 F 10/23/24 09:58 Pulse Rate 76 10/23/24 09:58 Respiratory Rate 18 10/23/24 09:58 Pulse Oximetry 99 10/23/24 09:58 Oxygen Delivery Room Air 10/23/24 09:58 Temperature 97.0 F L 10/23/24 15:44 Pulse Rate 78 10/23/24 15:44 Respiratory Rate 18 10/23/24 15:44 Blood Pressure 186/88 H 10/23/24 15:44 Pulse Oximetry 98 10/23/24 15:44 Oxygen Delivery Room Air 10/23/24 09:58 <Eric Puente MD - Last Filed: 10/23/24 14:51> MDM - Nausea/Vomiting/Diarrhea MDM Narrative Medical decision making narrative: Patient presented to ED with N/V, epigastric discomfort, hx of gastroparesis. Unable to afford intranasal reglan which was recommended by GI. VSS upon arrival. Patient in NAD. Given dose of IV Reglan here. She did report improvement with this during recent hospitalization. Is a dialysis patient, will hold on fluids for now. She did receive her normal treatment yesterday. Does not appear markedly fluid overloaded. CBC with white blood cell count of 13.0. She does report frequent vomiting. CMP is fairly unremarkable. End-stage renal disease, consistent with previous records. Mostly stable electrolytes. Blood glucose is mildly elevated to 272. Patient does not make urine. CT of the abdomen/pelvis was obtained and without acute intra-abdominal findings. Previous imaging here while hospitalized showed evidence of lots of retained gastric contents. On reeval, patient initially felt improved. She did attempt to drink water and was able to keep this down but began having worsening pain, nausea, general unwell feeling. Does not feel she will be able to go home. Will discuss with GI. Discussed case with Dr. Jones, GI, will consult. Discussed case with Emi RAMSAY hospitalist, accepted patient for admission. Will continue reglan/protonix. Patient in agreement with plan. <Yahaira Benson PA-C - Last Filed: 10/23/24 16:21> Medical Records Attestation: I reviewed the patient's medical records. <Yaahira Benson PA-C - Last Filed: 10/23/24 16:21> Lab Data Attestation: I reviewed the patient's lab results. <Yahaira Benson PA-C - Last Filed: 10/23/24 16:21> Result diagrams: 10/23/24 10:04 10/23/24 10:04 <Yahaira Benson PA-C - Last Filed: 10/23/24 16:21> Labs: Lab Results 10/23/24 Range/Units 10:04 WBC 13.0 H (4.5-10.0) K/mm3 RBC 4.29 (4.2-5.4) M/mm3 Hgb 12.1 (12.0-15.0) g/dL Hct 38.6 (37.0-47.0) % MCV 90.0 (80-100) fl MCH 28.2 (26-34) pg MCHC 31.3 L (32-36) g/dl RDW 14.7 H (11.5-14.5) % Plt Count 314 (150-375) k/mm3 MPV 9.3 (7.4-10.4) fl Immature Gran % (Auto) 0.2 (0-0.5) % Neut % (Auto) 89.4 H (45.5-73.1) % Lymph % (Auto) 3.8 L (18.3-44.2) % Ogle % (Auto) 5.9 (2.6-8.5) % Eos % (Auto) 0.1 (0-4.4) % Baso % (Auto) 0.6 (0.2-1.2) % Lymph # (Auto) 0.50 L (0.9-3.2) K/mm3 Ogle # (Auto) 0.8 H (0.1-0.6) K/mm3 Eos # (Auto) 0.0 (0-0.3) K/mm3 Baso # (Auto) 0.1 (0.0-0.1) K/mm3 Abs Immat Gran (auto) 0.03 (0.00-0.031) K/mm3 Absolute Neuts (auto) 11.6 H (1.3-6.7) K/mm3 Absolute Nucleated RBC 0.000 (0.0-0.012) K/mm3 Nucleated RBC % 0.0 (0.0-0.2) % Sodium 130 L (137-145) mmol/L Potassium 4.7 (3.4-5.0) mmol/L Chloride 94 L (98-107) mmol/L Carbon Dioxide 23 (22-30) mmol/L Anion Gap 13 H (4-12) mmol/L BUN 17 (7-17) mg/dL Creatinine 5.08 H (0.7-1.0) mg/dL Estim Creat Clear Calc 11 ml/min Estimated GFR 9 L (59 - ) Glucose 272 H (65-110) mg/dL Calcium 10.8 H (8.4-10.2) mg/dL Total Bilirubin 0.9 (0.2-1.3) mg/dL AST 35 (14-36) U/L ALT 17 (6-35) U/L Alkaline Phosphatase 68 (38-126) U/L Total Protein 8.0 (6.3-8.2) g/dL Albumin 4.5 (3.5-5.1) g/dL Lipase 65 (23-300) U/L <Yahaira Benson PA-C - Last Filed: 10/23/24 16:21> Lab Results 10/23/24 Range/Units 10:04 WBC 13.0 H (4.5-10.0) K/mm3 RBC 4.29 (4.2-5.4) M/mm3 Hgb 12.1 (12.0-15.0) g/dL Hct 38.6 (37.0-47.0) % MCV 90.0 (80-100) fl MCH 28.2 (26-34) pg MCHC 31.3 L (32-36) g/dl RDW 14.7 H (11.5-14.5) % Plt Count 314 (150-375) k/mm3 MPV 9.3 (7.4-10.4) fl Immature Gran % (Auto) 0.2 (0-0.5) % Neut % (Auto) 89.4 H (45.5-73.1) % Lymph % (Auto) 3.8 L (18.3-44.2) % Ogle % (Auto) 5.9 (2.6-8.5) % Eos % (Auto) 0.1 (0-4.4) % Baso % (Auto) 0.6 (0.2-1.2) % Lymph # (Auto) 0.50 L (0.9-3.2) K/mm3 Ogle # (Auto) 0.8 H (0.1-0.6) K/mm3 Eos # (Auto) 0.0 (0-0.3) K/mm3 Baso # (Auto) 0.1 (0.0-0.1) K/mm3 Abs Immat Gran (auto) 0.03 (0.00-0.031) K/mm3 Absolute Neuts (auto) 11.6 H (1.3-6.7) K/mm3 Absolute Nucleated RBC 0.000 (0.0-0.012) K/mm3 Nucleated RBC % 0.0 (0.0-0.2) % Sodium 130 L (137-145) mmol/L Potassium 4.7 (3.4-5.0) mmol/L Chloride 94 L (98-107) mmol/L Carbon Dioxide 23 (22-30) mmol/L Anion Gap 13 H (4-12) mmol/L BUN 17 (7-17) mg/dL Creatinine 5.08 H (0.7-1.0) mg/dL Estim Creat Clear Calc 11 ml/min Estimated GFR 9 L (59 - ) Glucose 272 H (65-110) mg/dL Calcium 10.8 H (8.4-10.2) mg/dL Total Bilirubin 0.9 (0.2-1.3) mg/dL AST 35 (14-36) U/L ALT 17 (6-35) U/L Alkaline Phosphatase 68 (38-126) U/L Total Protein 8.0 (6.3-8.2) g/dL Albumin 4.5 (3.5-5.1) g/dL Lipase 65 (23-300) U/L <Eric Puente MD - Last Filed: 10/23/24 14:51> Imaging Data Attestation: I personally reviewed and interpreted this imaging study as follows: < Yahaira Benson PA-C - Last Filed: 10/23/24 16:21> Radiologist's impression: ITS Impressions Abdomen/Pelvis CT 10/23/24 11:57 IMPRESSION: 1. No acute intra-abdominal/pelvic process. 2. Small bilateral pleural effusions with consolidation in the basilar right lower lobe and favor atelectasis over pneumonia. 3. Severe bilateral renal atrophy with stones in the bilateral renal pelvises sees without hydronephrosis. <Yahaira Benson PA-C - Last Filed: 10/23/24 16:21> Discharge Plan Discharge Clinical Impression: Gastroparesis Nausea and vomiting Qualifiers: Vomiting type: unspecified Qualified Code(s): R11.2 - Nausea with vomiting, unspecified <Yahaira Benson PA-C - Last Filed: 10/23/24 16:21> Patient Disposition: Still a Patient <Yahaira Benson PA-C - Last Filed: 10/23/24 16:21> Condition: Stable <Yahaira Benson PA-C - Last Filed: 10/23/24 16:21> Time of Disposition: 13:01 <Yahaira Benson PA-C - Last Filed: 10/23/24 16:21> 13:01 <Eric Puente MD - Last Filed: 10/23/24 14:51>
[2024-10-23 10:11] LABS: Hematocrit 38.6 % (37.0-47.0); Hemoglobin 12.1 g/dL (12.0-15.0); Immature Granulocyte Percent A 0.2 % (0-0.5); Lymphocytes Absolute Auto 0.50 K/mm3 (0.9-3.2); Mean Corpuscular HGB Conc 31.3 g/dl (32-36); Mean Corpuscular Hemoglobin 28.2 pg (26-34); Mean Corpuscular Volume 90.0 fl (80-100); Nucleated Red Blood Cells Absolute Auto 0.000 K/mm3 (0.0-0.012); Nucleated Red Blood Cells Perc 0.0 % (0.0-0.2); Platelet Count Result 314 k/mm3 (150-375); Red Blood Count 4.29 M/mm3 (4.2-5.4); White Blood Count 13.0 K/mm3 (4.5-10.0)
--- OUTSIDE RECORDS SUMMARY | 2024-10-23 10:24 | XMS_ITS | Clinical Summary ---
Author Organization [facility] Address [address] [place] [address] Phone Care Team Providers Care Network Relations Consultant Name Role Phone Provider, None Primary Care Provider Unavailabl e Allergies No known active allergies Medications Eliquis 5 MG Tablet Take 5 mg by mouth 2 times daily. 4 Active B Yprakac-C-Mccyz Acid (Deepa-Vikash Rx) 1 MG Tablet Take [...] Years Used Date Smoking Tobacco: Never Assessed [facility] Utilities Answer Date Recorded In [...] any time in the past 12 [address] [place], were you homeless or living in a assisted (including now)? 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 Gender Identity Not on file Sexual Orientation Not on file Last Filed Vital Signs Vital Sign Reading Time Taken Comments Blood Pressure 184/65 03/15/2024 2:00 PM BIOINFORMATICS SCIENTIST Pulse 74 03/15/2024 2:00 PM BIOINFORMATICS SCIENTIST Temperature 36.5 C (97.7 F) 03/15/2024 2:00 PM BIOINFORMATICS SCIENTIST Respiratory Rate 18 03/15/2024 2:00 PM BIOINFORMATICS SCIENTIST Oxygen Saturation 97% 03/15/2024 8:02 AM BIOINFORMATICS SCIENTIST Inhaled Oxygen Concentration - - Weight 97.8 kg (215 lb 9.8 oz) 03/14/2024 2:30 P M BIOINFORMATICS SCIENTIST Height 165.1 cm (5' 5) 03/13/2024 2:33 PM BIOINFORMATICS SCIENTIST Body Mass Index 35.88 03/13/2024 2:33 PM BIOINFORMATICS SCIENTIST Plan of Treatment Health Maintenance Due Date [...] PCR VIRAL LOAD Routine 03/15/2024 5:50 AM BIOINFORMATICS SCIENTIST HEMOGLOBIN A1C W/ ESTIMATED GLUCOSE Routine 03/14/2024 4:22 AM BIOINFORMATICS SCIENTIST CMP (COMPREHENSIVE METABOLIC PANEL) 03/13/2024 12:00 AM BIOINFORMATICS SCIENTIST from Last 3 Months or Most Recently Relevant to Health Maintenance Results * Hepatitis C RNA Quant PCR Viral Load (03/15/2024 5:50 AM BIOINFORMATICS SCIENTIST) Pathologist [facility] HCV RNA QUANT PCR NON DETECTED NON DETECTED 03/15/2024 11:56 PM BIOINFORMATICS SCIENTIST [facility] RNA QT LOG10 03/15/2024 11:56 PM BIOINFORMATICS SCIENTIST [facility] Comment: LOG 10 is not applicable. This test was performed using IRON 5800 Real Time PCR. Blood Venipuncture / Unknown 03/15/2024 5:50 AM BIOINFORMATICS SCIENTIST 03/15/2024 5:59 AM BIOINFORMATICS SCIENTIST us Crystal Amador MD IMMUNOLOGY ORDERABLES F inal Result [facility] [address] [place] [address], * (ABNORMAL) Hemoglobin A1C (if indicated) (03/14/2024 4:22 AM BIOINFORMATICS SCIENTIST) Pathologist [facility] HGB-A1C 6.4(H) 4.0 - 6.0 % 03/14/2024 6:12 AM BIOINFORMATICS SCIENTIST [facility] Est Average Glucose 137.0 mg/dL 03/14/2024 6:12 AM BIOINFORMATICS SCIENTIST [facility] Blood Venipuncture / Unknown 03/14/2024 4:22 AM BIOINFORMATICS SCIENTIST 03/14/2024 5:45 AM BIOINFORMATICS SCIENTIST Narrative [facility] - 03/14/2024 6:12 AM BIOINFORMATICS SCIENTIST HEMOGLOBIN A1C: DIABETIC PATIENTS: WELL-CONTROLLED: 6.2 - 7.0 INTERMEDIATE WELL-CONTROLLED: 7.0 - 9.0 POORLY-CONTROLLED: >9.0 Specimens containing greater than 5% of Hemoglobin F may result in lower than expected % HbA1C results. us Jillian Castillo GENERAL MAINTENANCE MECHANIC, ELECTRO MECHANIC CHEMISTRY ORDERABLES Final Result [facility] [address] [place] [address] * CMP (Comprehensive Metabolic Panel) (03/13/2024 12:00 AM BIOINFORMATICS SCIENTIST) 03/13/2024 us Provider Scan CHEMISTRY ORDERABLES Final Resul t SCAN from Last 3 Months or Most Recently Relevant to Health Maintenance Insurance [address] [place] [address] MEDICAID [place] MEDICARE Advance Directives * Full Code (Latest Code Status on File) Date Activated Date Inactivated Comments 03/13/2024 6:23 PM CPR-Full Treat ment: FULL ARREST: Attempt Resuscitation/CPR wit intubation and mechanical ventilation. PRE-ARREST: Use entire range of life support measures to stabilize the patient. Care Teams Network Relations Consultant Relationship Specialty Start Date End Date Provider, None [place] PCP - General 03/13/24
--- OUTSIDE RECORDS SUMMARY | 2024-10-23 10:24 | XMS_ITS | Clinical Summary ---
Author Organization [facility] Address [address] [place] [address] Care Team Providers Care Hogshead Roller Name Role Phone Jabari Banda MD Primary Care Provider [phone] Christine Stevens RN Unavailable [phone] Mily Vance ASSOCIATE DIRECTOR OF BIOSTATISTICS-MOLECULAR BIOLOGY PROFESSOR Unavailable + Darby Del Real RN Unavailable Unavailable Kaity Bowens Unavailable Unavailable Source Comments [facility],non-owned Affiliates and Associated Physician Practices is amultiple site organization consisting of ambulatory clinics and hospital sitesin [place], [place], [place] and [place]. This disclosure is being madepursuant to the Care Everywhere program and may not contain all information available regarding this patient. Last updated 17.[facility] [employer] Allergies No known active allergies Medications * [...] failure 016 Overview (08/22/2015): Added per clinical cessation systems outreach specialist per dc summary Dr. Lee . 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 Gender Identity Not on file Sexual [...] 5:40 AM CDT) Hepatitis C Virus Quantitation [id number] IU/mL 05/07/2015 9:18 AM CDT [facility] Hepatitis C Virus Log 10 6.037 log10 IU/mL 05/07/2015 9:18 AM CDT [facility] ([facility]) Test Information Comment 05/07/2015 9:18 AM CDT [facility] Comment: The quantitative range of [...] CDT 05/04/2015 5:46 AM CDT Narrative [facility] ([facility]) - 05/07/2015 9:18 AM CDT Performed at: [address] [place] [id number] Rn Staff: Conrado Keane MD, Phone: [phone] Nunu Reynoso MD LAB - CHEMISTRY ORDERABLES Final Result [facility]) [address] [place] [address] from Last 3 Months or Most Recently [...] 2:49 PM 05/01/2015 3:17 PM Care Teams Hogshead Roller Relationship Specialty Start Date End Date Jabari Banda MD [address] [place] [address] PCP - General Internal Medicine 05/01/15 Christine Stevens, RN Manager Steel 05/02/15 Mily Vance, ASSOCIATE DIRECTOR OF BIOSTATISTICS-MOLECULAR BIOLOGY PROFESSOR [address] [facility] [facility] [address] [place] [id number] Registered Nurse - Cardiopulmonary Rehab 08/04/15 Darby Del Real RN Registered Nurse - Cardiopulmonary Rehab 08/04/15 Kaity Bowens Dialysis Liaison 08/14/15
--- OUTSIDE RECORDS SUMMARY | 2024-10-23 10:24 | XMS_ITS | Encounter Summary ---
Author Organization [facility] Address [address] [place] [address] Care Team Providers Care Plating Operator Name Role Phone Jabari Banda MD Primary Care Provider [phone] Christine Stevens RN Unavailable [phone] Mily Vance LEGAL EXECUTIVE ASSISTANT-DRILLING MANAGER Unavailable + Darby Del Real RN Unavailable Unavailable Kaity Bowens Unavailable Unavailable Encounter Details Date Type Department Care Team (Late st Contact Info) Description 08/11/2015 Transitional Care [facility] [address] [place] [address] Darby Del Real RN Social History Tobacco Use Types Packs/Day Years Used Date Smoking Tobacco: Former Cigarettes Q uit: 05/02/2015 Alcohol Use Standard Drinks/Week Comments Not Asked 0 (1 standard drink = 0.6 oz pur e alcohol) Comments No Sex and Gender Information Value Date Recorded Sex Assigned at Not on file 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 Gender Identity Not on file Sexual Orientation [...] on filedocumented in this encounter Care Teams Plating Operator Relationship Specialty Start Date End Date Jabari Banda MD [address] [place] [address] PCP - General Internal Medicine 05/01/15 Christine Stevens RN Relief Man 05/02/15 Mily Vance, LEGAL EXECUTIVE ASSISTANT-DRILLING MANAGER [address] [place] [address] Registered Nurse - Cardiopulmonary Rehab 08/04/15 Darby Del Real RN Registered Nurse - Cardiopulmonary Rehab 08/04/15 Kaity Bowens Dialysis Liaison 08/14/15 documented as of this encounter
[2024-10-23 10:48] LABS: Alanine Aminotransferase 17 U/L (6-35); Albumin Level 4.5 g/dL (3.5-5.1); Alkaline Phosphatase 68 U/L (38-126); Anion Gap 13 mmol/L (4-12); Aspartate Amino Transferase 35 U/L (14-36); Bilirubin,Total 0.9 mg/dL (0.2-1.3); Blood Urea Nitrogen 17 mg/dL (7-17); Calcium 10.8 mg/dL (8.4-10.2); Carbon Dioxide 23 mmol/L (22-30); Chloride 94 mmol/L (98-107); Estimated CRCL calculation 11 ml/min; Estimated Glomerular Filt Rate 9; Glucose 272 mg/dL (65-110); Lipase 65 U/L (23-300); Potassium 4.7 mmol/L (3.4-5.0); Sodium 130 mmol/L (137-145); Total Protein 8.0 g/dL (6.3-8.2)
[2024-10-23] MEDS: PANTOPRAZOLE SODIUM IV 40 MG VIAL IV PUSH (10:54)
[2024-10-23] MEDS: METOCLOPRAMIDE HCL INJ 10 MG/2 ML VIAL IV PUSH ×3 (10:54→17:32)
--- NOTE | 2024-10-23 15:08 | P.HP_ITS ---
H&P: HPI History of Present Illness Date/Time: 10/23/24 15:08 Chief Complaint: Nausea and vomiting Narrative: 65-year-old female past medical history of CHF, CVA, CAD, hypothyroidism dialysis Tuesday, diabetes, gastroparesis presents the hospital with uncontrolled nausea and vomiting. Patient was recently seen by GI with recommendations for nasal Reglan due to oral Reglan not reducing her symptoms however nasal Reglan was extremely expensive the patient could not afford it. Patient complains of general malaise, extremely nauseated even with Reglan. Patient thinks she is a type 1 diabetic. Patient denies fever chills. Labs in the ED showed leukocytosis at 13.0, sodium of 130, chloride of 94, anion gap of 13, creatinine of 5.08 GFR 9, glucose of 272, calcium of 10.8, CT abdomen pelvis show no acute intra-abdominal processes, small bilateral pleural effusions with consolidation likely atelectasis and bilateral kidney stones. Patient given IV fluids, IV Reglan and Protonix. A GI consulted Review of Systems Review of Systems: 12 systems were reviewed and are negativ e except for as per HPI. [facility] Past Medical History Medical History (Updated 10/23/24 @ 22:54 by Emi Stevens, HOTEL CONTROLLER) CHF (congestive heart failure) Anxiety and depression History of CVA (cerebrovascular accident) VIJAY (obstructive sleep apnea) CAD (coronary artery disease) Hypothyroidism Other chronic pain Incomplete tear of left rotator cuff Chronic left shoulder pain Anemia Hypertension Hyperlipidemia ESRD (end stage renal disease) on dialysis COPD (chronic obstructive pulmonary disease) Diabetes mellitus Surgical History Surgical History S/P cholecystectomy History of thyroid surgery History of x2 Hx of appendectomy Family History Family History Father Diabetes mellitus Hypertension Cerebrovascular accident Family history of arthritis Family history of malignant neoplasm Mother Family history of malignant neoplasm Family history of diabetes mellitus in first degree relative Social History Social History Smoking packs per day: 0.5 Smoking cigarettes per day: 10.0 Years smoked: 20 Smoking pack-years: 10.00 Smoking status: Former smoker Tobacco type: cigarettes Second hand tobacco smoke exposure: No Alcohol intake: former Substance use: never Substance use type: former substance user and marijuana Lack of Transportation: No Lack of Food: Never True Current Housing: I Have Housing Concerned About Future Housing: No Difficulty Paying Gas/Electric Bills: No Difficulty Paying for Meds: No Currently Unemployed: No Education: Associate Degree Difficulty w/ Childcare or Family Care: No Living arrangements: with family Spiritual care concerns: No Meds Home Medications and Allergies Home Medications ?Medication ?Instructions ?Recorded ?Confirmed ?Type atorvastatin 20 mg tablet 20 mg PO HS 06/17/19 5 History clopidogrel 75 mg tablet 75 mg PO DAILY 06/17/1904/17 History hydrocodone 7.5 mg-acetaminophen 1 tablet PO QID PRN P ain 06/17/19 10/23/24 History 325 mg tablet insulin aspar prot-insulin aspart 35 unit subcut BID 0 06/17/19 10/23/24 History 100 unit/mL (70-30) subcutaneous pen (Novolog Mix 70-30FlexPen U-100) levothyroxine 175 mcg tablet 175 mcg PO DAILY 06/17/19 10/23/24 History paroxetine HCl 40 mg tablet 40 mg PO DAILY 06/17/19 History sevelamer carbonate 800 mg tablet See Rx Instructions .Route .COMPLEX 06/17/19 10/23/24 History montelukast 10 mg tablet 10 mg PO DAILY 01/02/2104/17 History vitamin B complex-vitamin C-folic 0.8 tablet PO DAILY 01/02/21 10/23/24 History acid 0.8 mg tablet (Deepa-Vikash) amlodipine 5 mg tablet 5 mg PO DAILY 10/08/2410/23 History apixaban 5 mg tablet (Eliquis) 5 mg PO Q12H 10/08/24 0 10/23/24 History diltiazem HCl 180 mg 180 mg PO Q24H 10/08/2404/17 History capsule,extended release 24 hr, controlled (DILT-XR) metoclopramide HCl 10 mg tablet 5 mg PO Q6H 10/08/24 0 10/23/24 History ondansetron 4 mg disintegrating 4 mg PO PRN 10/08/24 0 10/23/24 History tablet umeclidinium 62.5 mcg-vilanterol 1 inh inhalation Q24H 10/08/24 10/23/24 History 25 mcg/actuation powdr for inhalation (Anoro Ellipta) metoclopramide HCl 15 mg/spray 1 spray intranasal QID 4 weeks 10/14/24 10/23/24 Rx nasal spray with pump (Gimoti) #9.8 mL metoclopramide HCl 5 mg tablet 10 mg (2 x 5 mg) PO Q8H PRN nausea 10/23/24 Rx and vomiting #30 tabs pantoprazole 40 mg tablet,delayed 40 mg PO HS 4 weeks #28 tabs 10/23/24 Rx release (Protonix) Allergies Allergy/AdvReac Type Severity Reaction Status Date / Time No Known Allergies Allergy Verified 10/23/24 10:03 Vital Signs Vital Signs - 24 hr 10/23/24 09:58 10/23/24 10:30 10/23/24 10:47 Temperature 98.4 F Pulse Rate 76 73 75 Respiratory Rate 18 17 24 H Blood Pressure 195/78 H 187/82 H Pulse Oximetry 99 98 98 Oxygen Delivery Room Air 10/23/24 10:53 10/23/24 11:01 10/23/24 13:12 Temperature 98.5 F Pulse Rate 74 74 80 Respiratory Rate 18 15 18 Blood Pressure 187/82 H 190/81 H 172/88 H Pulse Oximetry 98 99 98 Oxygen Delivery 10/23/24 13:42 10/23/24 13:46 10/23/24 14:45 Temperature 98.8 F Pulse Rate 77 74 75 Respiratory Rate 19 17 18 Blood Pressure 175/87 H 178/86 H 177/100 H Pulse Oximetry 100 100 98 Oxygen Delivery Exam Narrative: General: Appears ill no acute distress HEENT: normocephalic, atraumatic. Mucous membranes moist. EOMI, PERRLA, bilateral sclera anicteric, no conjunctival injection. Neck supple without JVD, lymphadenopathy, or bruit. Respiratory: clear to ascultation bilaterally. No rales/rhonic/wheezes. Cardiovascular: Regular rate and rhythm, normal S1-S2 upon ascultation. No murmurs, rubs, or clicks. PMI is nondisplaced, capillary refill less than 3 second. Abdomen: Soft, round, no pulsatile masses, nondistended and nontender. No rebound, no guarding. No CVA tenderness, no hepatosplenomegaly. Bowel sounds present to all four quadrants. No high pitch or tinkling sounds, resonant to percussion. Extremities: No cyanosis, clubbing, or edema present. Pulses are palpable 2/2. Active ROM to all four extremities. Neuro: Alert and orientated x 4. PERRLA. Cranial nerves 2-12 intact without focal deficit. Skin: Warm, dry, and intact, without rash, erythema, or lesion. Psych: pleasant, cooperative, normal speech, normal affect, no hallucinations, no dysarthia H&P: Results Labs Labs: Short CBC 10/23/24 Range/Units 10:04 WBC 13.0 H (4.5-10.0) K/mm3 Hgb 12.1 (12.0-15.0) g/dL Hct 38.6 (37.0-47.0) % Plt Count 314 (150-375) k/mm3 [facility] 10/23/24 10:04 Sodium 130 L Potassium 4.7 Chloride 94 L Carbon Dioxide 23 BUN 17 Creatinine 5.08 H Glucose 272 H Calcium 10.8 H Liver Function 10/23/24 Range/Units 10:04 Total Bilirubin 0.9 (0.2-1.3) mg/dL AST 35 (14-36) U/L ALT 17 (6-35) U/L Alkaline Phosphatase 68 (38-126) U/L Albumin 4.5 (3.5-5.1) g/dL Assessment and Plan Assessment and plan (1) Gastroparesis: Code(s): K31.84 - Gastroparesis Status: Acute Assessment and Plan: GI consulted IV Reglan Gentle IVF D5 NS at 40 due to patient not tolerating diet Protonix Compazine (2) Hyponatremia: Code(s): E87.1 - Hypo-osmolality and hyponatremia Status: Acute Assessment and Plan: IVF BMP morning (3) ESRD (end stage renal disease) on dialysis: Code(s): N18.6 - End stage renal disease; Z99.2 - Dependence on renal dialysis Status: Acute Assessment and Plan: Nephrology consulted Dialysis Tuesday (4) Hypertension: Code(s): I10 - Essential (primary) hypertension Status: Chronic Assessment and Plan: Hydralazine p.r.n. as patient is not tolerating oral meds (5) Diabetes mellitus: Code(s): E11.9 - Type 2 diabetes mellitus without complications Status: Chronic Assessment and Plan: Possibly type 1 Q.6 Hypoglycemia protocol SSI and Lantus Patient needed diabetic diet and tolerating solids D5 NS (6) COPD (chronic obstructive pulmonary disease): Qualifiers: COPD type: COPD with acute exacerbation Qualified Code(s): J44.1 - Chronic obstructive pulmonary disease with (acute) exacerbation Code(s): J44.9 - Chronic obstructive pulmonary disease, unspecified Status: Acute Assessment and Plan: 2 L of oxygen at night IV Rocephin and azithromycin Solu-Medrol (7) CHF (congestive heart failure): Code(s): I50.9 - Heart failure, unspecified Status: Acute Assessment and Plan: Patient not on diuretics managed through dialysis (8) Leukocytosis: Code(s): D72.829 - Elevated white blood cell count, unspecified Status: Acute Assessment and Plan: Possible exacerbation of COPD unable is held due to pulmonary edema and CHF on x-ray IV Rocephin and azithromycin Solu-Medrol (9) Afib: Code(s): I48.91 - Unspecified atrial fibrillation Status: Acute Assessment and Plan: Continue diltiazem Quality VTE Prophylaxis VTE prophylaxis: mechanical ordered Hospitalist MIPS Advance Care Plan I have confirmed that the patient's Advanced Care Plan is present, code status is documented, or surrogate decision maker is listed in patient medical record.: Yes Medication Reconciliation I have utilized all available resources to obtain, update and review the patients current medications (includes all prescriptions, OTC, herbals, cannabis, and nutritional supplements).: Yes
--- NOTE | 2024-10-23 15:21 | PC.NURSE ---
Addendum entered by Marycruz Garza RN 10/23/24 15:23: Pt going to room 329. Original Note: Report called to Fatemeh Vilchis RN
--- NOTE | 2024-10-23 16:02 | ADMGEN ---
This patient, Tyson Smith, was admitted to [facility] Surg Room 329-01. Patient/family oriented to hospital policies and general routines including ID bracelet, bed and alarms, visiting hours, pain management, procedures, bathroom and other care routines, personal items, smoking policy, room service/diet, and visiting hours. Information on how to activate the Rapid Response Team has been discussed. Patient/Family are encouraged to report perceived risks to care and to ask questions if they do not understand what they are told or what they should do.
[2024-10-23] MEDS: SODIUM CHLORIDE 0.9% IV 1,000 ML 40 ML IV CONT (16:48)
--- NOTE | 2024-10-23 17:16 | P.CONNP_ITS ---
Assessment and Plan Assessment and plan (1) End stage renal disease: Code(s): N18.6 - End stage renal disease Status: Chronic Assessment and Plan: * HD tomorrow * continue Tuesday/Tuesday/Tuesday dialysis schedule while hospitalized * follow trend of electrolytes, volume status and clearance * outpatient dialysis unit = [facility] * primary architectural project captain = Dr. Mathias (2) Nausea and vomiting: Qualifiers: Vomiting type: unspecified Qualified Code(s): R11.2 - Nausea with vomiting, unspecified Code(s): R11.2 - Nausea with vomiting, unspecified Status: Acute Assessment and Plan: * seems to be doing better * suspect secondary to known history of gastroparesis * unable to afford nasal reglan for outpatient use * IV reglan while hospitalized * GI consulted * admission CT of A/P noted * continue supportive therapy (3) Pneumonia: Qualifiers: Laterality: bilateral Lung location: lower lobe of lung Pneumonia type: due to unspecified organism Qualified Code(s): J18.9 - Pneumonia, unspecified organism Code(s): J18.9 - Pneumonia, unspecified organism Status: Acute Assessment and Plan: * as suggested by admission imaging * follow culture data * complicated by #4 * on antibiotics (4) Chronic hypoxic respiratory failure: Code(s): J96.11 - Chronic respiratory failure with hypoxia Status: Acute Assessment and Plan: * follows with Pulmonary as an outpatient * presumably due to COPD * on 2L oxygen by [place] at baseline (5) Hyponatremia: Code(s): E87.1 - Hypo-osmolality and hyponatremia Status: Acute Assessment and Plan: * chronic issue * probably related due to kidney disease/ESRD, lung disease (COPD/VIJAY), chronic nausea, and possibly increased free water intake * pneumonia may be playing a role as well(?) * should correct to some degree with dialysis * follow trend (6) Anemia: Code(s): D64.9 - Anemia, unspecified Status: Chronic Assessment and Plan: * due to ESRD * Epogen with HD * follow trend of H/H (7) Hypertension: Code(s): I10 - Essential (primary) hypertension Status: Chronic Assessment and Plan: * elevated on admission/currently * fluid removal with HD may help to some degree * resume home BP medications * not sure why on both amlodipine AND diltiazem... * follow trend of hemodynamics (8) Diabetes mellitus: Code(s): E11.9 - Type 2 diabetes mellitus without complications Status: Chronic Assessment and Plan: * follow accu-cheks * glycemic control per hospitalist I will continue to follow the patient with you while she remains hospitalized and make further recommendations as deemed necessary. Thank you for allowing me to participate in the care of this patient. L History of Present Illness Reason for Consult Consult date: 10/23/24 Reason for consult: end stage renal disease Chief Complaint Chief complaint: n/v gastroparesis,unable to tolerate po History of Present Illness Narrative: The patient is a 64-year-old female with a past medical history as outlined below who was transferred from [facility] Emergency Room to [facility] for uncontrolled nausea and vomiting. The patient states that she has had several days of nausea and vomiting with an inability to keep any food or drink down because of the symptoms. Other associated symptoms included constipation and epigastric discomfort. However, she denies any overt fevers, chills, diarrhea, melena, hematochezia, dizziness, lightheadedness, or palpitations. The patient was just recently hospitalized and discharged from [facility] few weeks ago for shortness of breath secondary to pneumonia. At that time, she also had ongoing issues with nausea and vomiting and was seen in consultation by Gastroenterology who felt her symptoms were secondary to severe/significant gastroparesis. she was initiated on IV Reglan and with significant improvement in these symptoms. On discharge, she was prescribed intranasal Reglan and as there were concerns that oral reglan may not be sufficient to keep her symptoms stable. Unfortunately, intranasal Reglan was extremely expensive and she was unable to get this medication which may partly explain the recurrence of her significant nausea/vomiting. Given the persistence of her GI symptoms, she presented to the emergency room for further assessment. Workup and evaluation emergency room demonstrated the patient be hemodynamically stable (if not hypertensive) and afebrile. Routine blood work demonstrated a white blood cell count of 13.0, hemoglobin 12.1, platelet count of 314, sodium 130, potassium 4.7 bicarb 23, BUN 17, creatinine 5.08, glucose 272, calcium 10.8, normal LFTs, albumin 4.5, and a lipase of 65. A CT scan of the abdomen pelvis was done which demonstrated no acute intra-abdominal pathology with evidence of small bilateral pleural effusions and likely atelectasis. She was given a dose of IV Reglan in the emergency room with some transient improvement in her symptoms but then her nausea returned with a sensation of just not feeling well. GI was consulted from the emergency room and the patient was subsequently admitted to the hospital for further evaluation and therapy. Renal consultation was requested due to her end-stage renal disease. The patient normally dialyzes on a Tuesday, Tuesday, Tuesday dialysis schedule at [facility] her the care of Dr. Mathias. The patient is somewhat familiar to me as I took care of her during her previous hospitalization here at [facility] a few weeks ago. She did receive her dialysis treatment yesterday prior to her presentation to the emergency room today. She has been on dialysis since 2016 and has been compliant with her dialysis treatments. In spite of her CT imaging, her breathing/ respiratory status appears to be relatively stable. She is due for dialysis tomorrow. Currently, at the time my evaluation, she is in no acute distress. Review of Systems 2 Review of Systems: As per HPI. [facility] Past Medical History Medical History (Updated 10/25/24 @ 08:49 by DRAKE Landin) CHF (congestive heart failure) Anxiety and depression History of CVA (cerebrovascular accident) VIJAY (obstructive sleep apnea) CAD (coronary artery disease) Hypothyroidism Other chronic pain Incomplete tear of left rotator cuff Chronic left shoulder pain Anemia Hypertension Hyperlipidemia ESRD (end stage renal disease) on dialysis COPD (chronic obstructive pulmonary disease) Diabetes mellitus Surgical History Surgical History S/P cholecystectomy History of thyroid surgery History of x2 Hx of appendectomy Family History Family History Father Diabetes mellitus Hypertension Cerebrovascular accident Family history of arthritis Family history of malignant neoplasm Mother Family history of malignant neoplasm Family history of diabetes mellitus in first degree relative Social History Social History Smoking packs per day: 0.5 Smoking cigarettes per day: 10.0 Years smoked: 20 Smoking pack-years: 10.00 Smoking status: Former smoker Tobacco type: cigarettes Second hand tobacco smoke exposure: No Alcohol intake: former Substance use: never Substance use type: former substance user and marijuana Lack of Transportation: No Lack of Food: Never True Current Housing: I Have Housing Concerned About Future Housing: No Difficulty Paying Gas/Electric Bills: No Difficulty Paying for Meds: No Currently Unemployed: No Education: Associate Degree Difficulty w/ Childcare or Family Care: No Living arrangements: with family Spiritual care concerns: No Meds Home Medications and Allergies Home Medications ?Medication ?Instructions ?Recorded ?Confirmed ?Type atorvastatin 20 mg tablet 20 mg PO HS 06/17/19 5 History clopidogrel 75 mg tablet 75 mg PO DAILY 06/17/1904/17 History hydrocodone 7.5 mg-acetaminophen 1 tablet PO QID PRN P ain 06/17/19 10/23/24 History 325 mg tablet insulin aspar prot-insulin aspart 35 unit subcut BID 0 06/17/19 10/23/24 History 100 unit/mL (70-30) subcutaneous pen (Novolog Mix 70-30FlexPen U-100) levothyroxine 175 mcg tablet 175 mcg PO DAILY 06/17/19 10/23/24 History paroxetine HCl 40 mg tablet 40 mg PO DAILY 06/17/19 History sevelamer carbonate 800 mg tablet See Rx Instructions .Route .COMPLEX 06/17/19 10/23/24 History montelukast 10 mg tablet 10 mg PO DAILY 01/02/2104/17 History vitamin B complex-vitamin C-folic 0.8 tablet PO DAILY 01/02/21 10/23/24 History acid 0.8 mg tablet (Deepa-Vikash) amlodipine 5 mg tablet 5 mg PO DAILY 10/08/2410/23 History apixaban 5 mg tablet (Eliquis) 5 mg PO Q12H 10/08/24 0 10/23/24 History diltiazem HCl 180 mg 180 mg PO Q24H 10/08/2404/17 History capsule,extended release 24 hr, controlled (DILT-XR) metoclopramide HCl 10 mg tablet 5 mg PO Q6H 10/08/24 0 10/23/24 History ondansetron 4 mg disintegrating 4 mg PO PRN 10/08/24 0 10/23/24 History tablet umeclidinium 62.5 mcg-vilanterol 1 inh inhalation Q24H 10/08/24 10/23/24 History 25 mcg/actuation powdr for inhalation (Anoro Ellipta) metoclopramide HCl 15 mg/spray 1 spray intranasal QID 4 weeks 10/14/24 10/23/24 Rx nasal spray with pump (Gimoti) #9.8 mL metoclopramide HCl 5 mg tablet 10 mg (2 x 5 mg) PO Q8H PRN nausea 10/23/24 Rx and vomiting #30 tabs pantoprazole 40 mg tablet,delayed 40 mg PO HS 4 weeks #28 tabs 10/23/24 Rx release (Protonix) Allergies Allergy/AdvReac Type Severity Reaction Status Date / Time No Known Allergies Allergy Verified 10/23/24 10:03 Vital Signs Vital Signs Temp Pulse Resp BP Pulse Ox O2 Del Method 10/23/24 15:44 97.0 F L 78 18 186/88 H 98 10/23/24 15:43 Room Air 10/23/24 15:16 77 19 182/89 H 98 10/23/24 14:45 98.8 F 75 18 177/100 H 98 10/23/24 13:46 74 17 178/86 H 100 10/23/24 13:42 77 19 175/87 H 100 10/23/24 13:12 98.5 F 80 18 172/88 H 98 10/23/24 11:01 74 15 190/81 H 99 10/23/24 10:53 74 18 187/82 H 98 10/23/24 10:47 75 24 H 187/82 H 98 10/23/24 10:30 73 17 195/78 H 98 10/23/24 09:58 98.4 F 76 18 99 Room Air Exam 2 Narrative: GENERAL APPEARANCE: well developed well nourished female in no acute distress HEENT: normocephalic, atraumatic, normal conjunctiva and sclera, nares patient NECK: no lymphadenopathy or thyromegaly MOUTH: normal lips, teeth, and gums CARDIOVASCULAR: RRR, normal S1 and S2, no rub RESPIRATORY: coarse breath sounds; decreased at bases ABDOMEN: soft, nontender, nondistended, positive bowel sounds present EXTREMITIES: no evidence of cyanosis, clubbing, trace edema NEUROLOGICAL: alert and oriented x 3; CN II - XII intact bilaterally; no focal deficits noted Results Lab Results 10/25/24 06:08 10/25/24 06:08 Lab results: Most recent lab results Calcium 10.8 mg/dL (8.4-10.2) H 10/23/24 10:04
[2024-10-23 18:02] LABS: MRSA (PCR) NOT DETECTED (NOT DETECTE)
[2024-10-23] MEDS: INSULIN GLARGINE (*BKC) 100 UNITS/ML 15 UNITS SUB-Q (21:43)
[2024-10-23] MEDS: PROCHLORPERAZINE EDISYLATE 10 MG/2 ML VIAL IV PUSH (21:43)
[2024-10-23] MEDS: dilTIAZem HCL CD 180 MG CAP.24HR PO (21:43)
[2024-10-23] MEDS: DEXTROSE 5%/0.9% SOD CHL 1,000 ML 40 ML IV CONT (21:43)
[2024-10-24] VITALS (19 sets, daily range): BP systolic 163–212; BP diastolic 67–110; PULSE 70–95; RESP 12–20; TEMP 35.8–37.2; O2SAT 96–98; BMI 32.3
[2024-10-24] MEDS: cefTRIAXone 1 GM in SODIUM CHLORIDE 0.9% IV 50 ML 100 ML IVPB ×2 (00:30→20:47)
[2024-10-24] MEDS: AZITHROMYCIN IV 500 MG in SODIUM CHLORIDE 0.9% IV 250 ML IVPB ×2 (00:30→20:46)
[2024-10-24] MEDS: METOCLOPRAMIDE HCL INJ 10 MG/2 ML VIAL IV PUSH ×3 (02:21→20:46)
[2024-10-24 05:50] LABS: Hematocrit 36.0 % (37.0-47.0); Hemoglobin 11.4 g/dL (12.0-15.0); Immature Granulocyte Percent A 0.6 % (0-0.5); Lymphocytes Absolute Auto 0.25 K/mm3 (0.9-3.2); Mean Corpuscular HGB Conc 31.7 g/dl (32-36); Mean Corpuscular Hemoglobin 27.9 pg (26-34); Mean Corpuscular Volume 88.2 fl (80-100); Nucleated Red Blood Cells Absolute Auto 0.000 K/mm3 (0.0-0.012); Nucleated Red Blood Cells Perc 0.0 % (0.0-0.2); Platelet Count Result 280 k/mm3 (150-375); Red Blood Count 4.08 M/mm3 (4.2-5.4); White Blood Count 8.8 K/mm3 (4.5-10.0)
[2024-10-24 06:31] LABS: Alanine Aminotransferase 11 U/L (6-35); Albumin Level 4.0 g/dL (3.5-5.1); Alkaline Phosphatase 73 U/L (38-126); Anion Gap 12 mmol/L (4-12); Aspartate Amino Transferase 22 U/L (14-36); Bilirubin,Total 0.8 mg/dL (0.2-1.3); Blood Urea Nitrogen 21 mg/dL (7-17); Calcium 10.2 mg/dL (8.4-10.2); Carbon Dioxide 19 mmol/L (22-30); Chloride 94 mmol/L (98-107); Estimated CRCL calculation 9 ml/min; Estimated Glomerular Filt Rate 7; Glucose 246 mg/dL (65-110); Magnesium 1.9 mg/dL (1.6-2.3); Potassium 4.9 mmol/L (3.4-5.0); Sodium 125 mmol/L (137-145); Total Protein 7.0 g/dL (6.3-8.2)
[2024-10-24 06:42] LABS: Hepatitis B Surface Antigen Negative (Negative)
[2024-10-24 07:00] LABS: Hepatitis B Surface Anti Res Negative
[2024-10-24] MEDS: UMECLIDINIUM/VILANTEROL 62.5-25 MCG ELLIPTA 1 PUFF INHALATION (08:04)
[2024-10-24] MEDS: CLOPIDOGREL BISULFATE 75 MG TABLET PO (08:31)
[2024-10-24] MEDS: PANTOPRAZOLE SODIUM IV 40 MG VIAL IV PUSH (08:31)
--- NOTE | 2024-10-24 14:03 | P.PNIM_ITS ---
Progress Note: A&P Assessment and Plan (1) Hypertension: Code(s): I10 - Essential (primary) hypertension Status: Chronic (2) CHF (congestive heart failure): Code(s): I50.9 - Heart failure, unspecified Status: Acute (3) Afib: Code(s): I48.91 - Unspecified atrial fibrillation Status: Acute (4) Diabetes mellitus: Code(s): E11.9 - Type 2 diabetes mellitus without complications Status: Chronic (5) Hyponatremia: Code(s): E87.1 - Hypo-osmolality and hyponatremia Status: Acute (6) Nausea: Code(s): R11.0 - Nausea Status: Chronic (7) Gastroparesis: Code(s): K31.84 - Gastroparesis Status: Acute (8) Nausea and vomiting: Qualifiers: Vomiting type: unspecified Qualified Code(s): R11.2 - Nausea with vomiting, unspecified Code(s): R11.2 - Nausea with vomiting, unspecified Status: Acute (9) Abdominal pain: Code(s): R10.9 - Unspecified abdominal pain Status: Acute (10) ESRD (end stage renal disease) on dialysis: Code(s): N18.6 - End stage renal disease; Z99.2 - Dependence on renal dialysis Status: Acute Plan 65-year-old female past medical history of CHF, CVA, CAD, hypothyroidism dialysis Tuesday, diabetes, gastroparesis presents the hospital with uncontrolled nausea and vomiting. Patient was recently seen by GI with recommendations for nasal Reglan due to oral Reglan not reducing her symptoms however nasal Reglan was extremely expensive the patient could not afford it. Patient complains of general malaise, extremely nauseated even with Reglan. Patient thinks she is a type 1 diabetic. 1 nausea vomiting secondary to gastroparesis: Await GI consult IV Reglan Gentle IVF Will switch IV fluids to normal saline Protonix Compazine (2) Hyponatremia+ end-stage renal disease on hemodialysis: History of end-stage renal disease Nephrology following Will defer to Nephrology (3) Hypertension: P.r.n. IV hydralazine Pressure elevated predialysis, patient is going for dialysis therefore will not give any blood pressure medications (4) Diabetes mellitus: Blood glucose check q.6 hours Continue with Lantus along with sliding scale insulin Adjust dose as needed Have to be cautious as patient is NPO (6) COPD (chronic obstructive pulmonary disease): Uses 2 L at night Continue with IV ceftriaxone, azithromycin Solu-Medrol (7) Afib: Continue with Cardizem 8. History of hypothyroidism: Continue with levothyroxine 9. Code status: Full 10. DVT prophylaxis: SCD, await GI input 11. Disposition: Pending improvement Time Spent With Patient Time: 38 min Subjective Date/time seen: 10/24/24 14:03 Interval history: Patient very anxious, denies any vomiting but feeling nauseous Review of Systems Review of Systems: All systems reviewed & are unremarkable except as noted in HPI and below Exam Narrative: General: Appears ill no acute distress HEENT: normocephalic, atraumatic. Mucous membranes moist. EOMI, PERRLA, bilateral sclera anicteric, no conjunctival injection. Neck supple without JVD, lymphadenopathy, or bruit. Respiratory: clear to ascultation bilaterally. No rales/rhonic/wheezes. Cardiovascular: Regular rate and rhythm, normal S1-S2 upon ascultation. No murmurs, rubs, or clicks. PMI is nondisplaced, capillary refill less than 3 second. Abdomen: Soft, round, no pulsatile masses, nondistended and nontender. No rebound, no guarding. No CVA tenderness, no hepatosplenomegaly. Bowel sounds present to all four quadrants. No high pitch or tinkling sounds, resonant to percussion. Extremities: No cyanosis, clubbing, or edema present. Pulses are palpable 2/2. Active ROM to all four extremities. Neuro: Alert and orientated x 4. PERRLA. Cranial nerves 2-12 intact without focal deficit. Skin: Warm, dry, and intact, without rash, erythema, or lesion. Psych: pleasant, cooperative, normal speech, normal affect, no hallucinations, no dysarthia Objective Data Vital Signs Vital Signs: Vital Signs - 24 hr 10/23/24 14:45 10/23/24 15:16 10/23/24 15:43 Temperature 98.8 F Pulse Rate 75 77 Respiratory Rate 18 19 Blood Pressure 177/100 H 182/89 H Pulse Oximetry 98 98 Oxygen Delivery Room Air 10/23/24 15:44 10/23/24 20:00 10/23/24 21:29 Temperature 97.0 F L 98.3 F Pulse Rate 78 83 83 Respiratory Rate 18 16 16 Blood Pressure 186/88 H 178/72 H Pulse Oximetry 98 98 98 Oxygen Delivery Room Air 10/24/24 05:49 10/24/24 08:00 10/24/24 08:05 Temperature Pulse Rate 93 70 Respiratory Rate 18 12 Blood Pressure 176/84 H Pulse Oximetry 98 Oxygen Delivery Room Air 10/24/24 13:57 Temperature 97.3 F L Pulse Rate 70 Respiratory Rate 20 Blood Pressure 210/110 H Pulse Oximetry 97 Oxygen Delivery Intake/Output Intake/Output: Intake & Output 10/21/24 10/22/24 10/23/24 10/24/24 23:59 23:59 23:59 23:59 Intake Total 0 Balance 0 Meds/Results Medications: Active Medications Generic Name Dose Route Start Last Admin Trade Name Freq PRN Reason Stop Dose Admin Acetaminophen 650 mg 10/23/24 14:00 Acetaminophen 325 Mg Tablet PO Q4H PRN Mild Pain (1-3) or Fever Clopidogrel Bisulfate 75 mg 10/24/24 09:00 10/24/24 08:31 Clopidogrel Bisulfate 75 Mg Tablet PO 75 mg DAILY DEMETRIO Administration Dextrose 12.5 gm 10/23/24 15:36 Dextrose 50% 25 Gm/50 Ml Syringe IV PUSH PRN PRN Hypoglycemia Protocol Diltiazem HCl 180 mg 10/23/24 21:00 10/23/24 21:43 Diltiazem Hcl Cd 180 Mg Cap.24hr PO 180 mg Q24H DEMETRIO Administration Glucagon 1 mg 10/23/24 15:36 Glucagon For Inj 1 Mg Vial IM PRN PRN Hypoglycemia Protocol Glucose 15 gm 10/23/24 15:36 Glucose Oral Gel 15 Gm Of Glucse In 37.5 Gm Tube PO PRN PRN Hypoglycemia Protocol Hydralazine HCl 10 mg 10/23/24 15:39 Hydralazine Hcl 20 Mg/Ml Vial IV PUSH Q8H PRN Blood Pressure - High Dextrose 1,000 mls @ 100 mls/hr 10/23/24 15:36 Dextrose 5% 1,000 Ml IVPB PRN PRN Hypoglycemia Protocol Dextrose/Sodium Chloride 1,000 mls @ 40 mls/hr 10/23/24 21:20 10/23/24 21:43 Dextrose 5% Sodium Chloride 0.9% IV CONT 40 mls/hr .Q24H DEMETRIO Administration Ceftriaxone Sodium 1 gm/ 50 mls @ 100 mls/hr 10/23/24 22:55 10/24/24 00:30 Sodium Chloride IVPB 100 mls/hr HS DEMETRIO Administration Azithromycin 500 mg/ Sodium 250 mls @ 250 mls/hr 10/23/24 22:55 10/24/24 00:30 Chloride IVPB 250 mls/hr HS DEMETRIO Administration Albumin Human 50 mls @ 999 mls/hr 10/23/24 23:47 Albutein IVPB 11/22/24 23:46 Q10M PRN HYPOTENSION Insulin Aspart 1 - 2 units 10/23/24 21:00 10/23/24 21:28 Insulin Aspart (*Bkc) 100 Units/Ml SUB-Q Not Given On Hold: 10/23/24 21:05 HS [facility] Protocol Insulin Aspart 2 - 5 units 10/24/24 00:00 10/24/24 11:31 Insulin Aspart (*Bkc) 100 Units/Ml SUB-Q Not Given Q6HR [facility] Protocol Insulin Glargine 15 units 10/23/24 21:20 10/23/24 21:43 Insulin Glargine (*Bkc) 100 Units/Ml SUB-Q 15 units HS DEMETRIO Administration Levothyroxine Sodium 100 mcg 10/24/24 06:30 10/24/24 06:34 Levothyroxine Sodium 100 Mcg Tablet PO Not Given DAILY@0630 [facility] Levothyroxine Sodium 75 mcg 10/24/24 06:30 10/24/24 06:34 Levothyroxine Sodium 75 Mcg Tablet PO Not Given DAILY@0630 [facility] Metoclopramide HCl 10 mg 10/23/24 18:27 10/24/24 08:31 Metoclopramide Hcl Inj 10 Mg/2 Ml Vial IV PUSH 10 mg Q6HR PRN Administration nausea vomiting Miscellaneous Information 1 each 10/24/24 00:01 Clarify Renvela Dose And Frequency XX 11/23/24 00:00 CLARIFY DEMETRIO Pantoprazole Sodium 40 mg 10/24/24 09:00 10/24/24 08:31 Pantoprazole Sodium Iv 40 Mg Vial IV PUSH 40 mg QAM DEMETRIO Administration Paroxetine HCl 40 mg 10/24/24 09:00 10/24/24 08:31 Paroxetine 20 Mg Tablet PO 40 mg DAILY DEMETRIO Administration Sevelamer Carbonate 0 mg 10/23/24 21:10 Sevelamer Carbonate 800 Mg Tablet BY MOUTH .COMPLEX DEMETRIO Umeclidinium/Vilanterol 1 puff 10/23/24 21:00 10/24/24 08:04 Umeclidinium/Vilanterol 62.5-25 Mcg Ellipta INHALATION 1 puff Q24H DEMETRIO Administration Radiology Results: ITS Impressions Abdomen/Pelvis CT 10/23/24 11:57 IMPRESSION: 1. No acute intra-abdominal/pelvic process. 2. Small bilateral pleural effusions with consolidation in the basilar right lower lobe and favor atelectasis over pneumonia. 3. Severe bilateral renal atrophy with stones in the bilateral renal pelvises sees without hydronephrosis. Chest X-Ray 10/24/24 08:00 IMPRESSION: 1. Likely congestive heart failure with cardiomegaly, mild pulmonary edema and small bilateral pleural effusions. 2. Additional linear and patchy airspace opacities in the left mid and bilateral lower lung zones which could represent atelectasis or pneumonia. Labs Labs: Laboratory Results - last 24 hr 10/23/24 10/24/24 10/24/24 16:35 00:20 05:31 WBC 8.8 RBC 4.08 L Hgb 11.4 L Hct 36.0 L MCV 88.2 MCH 27.9 MCHC 31.7 L RDW 14.2 Plt Count 280 MPV 9.4 Immature Gran % (Auto) 0.6 H Neut % (Auto) 95.0 H Lymph % (Auto) 2.8 L [place] % (Auto) 0.8 L Eos % (Auto) 0.0 Baso % (Auto) 0.8 Lymph # (Auto) 0.25 L [place] # (Auto) 0.1 Eos # (Auto) 0.0 Baso # (Auto) 0.1 Abs Immat Gran (auto) 0.05 H Absolute Neuts (auto) 8.4 H Absolute Nucleated RBC 0.000 Nucleated RBC % 0.0 Sodium 125 L Potassium 4.9 Chloride 94 L Carbon Dioxide 19 L Anion Gap 12 BUN 21 H Creatinine 6.14 H Estim Creat Clear Calc 9 Estimated GFR 7 L Glucose 246 H POC Capillary Glucose 173 H 170 H Calcium 10.2 Phosphorus 5.4 H Magnesium 1.9 Total Bilirubin 0.8 AST 22 ALT 11 Alkaline Phosphatase 73 Total Protein 7.0 Albumin 4.0 Nasal MRSA (PCR) Not detected Hep Bs Antigen Negative Hep Bs Antibody Negative 10/24/24 10/24/2410/24/25 05:56 07:24 11:17 WBC RBC Hgb Hct MCV MCH MCHC RDW Plt Count MPV Immature Gran % (Auto) Neut % (Auto) Lymph % (Auto) [place] % (Auto) Eos % (Auto) Baso % (Auto) Lymph # (Auto) [place] # (Auto) Eos # (Auto) Baso # (Auto) Abs Immat Gran (auto) Absolute Neuts (auto) Absolute Nucleated RBC Nucleated RBC % Sodium Potassium Chloride Carbon Dioxide Anion Gap BUN Creatinine Estim Creat Clear Calc Estimated GFR Glucose POC Capillary Glucose 267 H 248 H 283 H Calcium Phosphorus Magnesium Total Bilirubin AST ALT Alkaline Phosphatase Total Protein Albumin Nasal MRSA (PCR) Hep Bs Antigen Hep Bs Antibody Quality VTE Prophylaxis VTE prophylaxis: mechanical ordered
--- NOTE | 2024-10-24 14:51 | P.PNNP_ITS ---
Progress Note: A&P Assessment and Plan (1) End stage renal disease: Code(s): N18.6 - End stage renal disease Status: Chronic Assessment and Plan: * HD today * continue Tuesday/Tuesday/Tuesday dialysis schedule while hospitalized * follow trend of electrolytes, volume status and clearance * outpatient dialysis unit = [facility] * primary massage operator = Dr. Mathias (2) Nausea and vomiting: Qualifiers: Vomiting type: unspecified Qualified Code(s): R11.2 - Nausea with vomiting, unspecified Code(s): R11.2 - Nausea with vomiting, unspecified Status: Acute Assessment and Plan: * seems to be doing better * suspect secondary to known history of gastroparesis * unable to afford nasal reglan for outpatient use * IV reglan while hospitalized * GI consulted * admission CT of A/P noted * continue supportive therapy (3) Pneumonia: Qualifiers: Laterality: bilateral Lung location: lower lobe of lung Pneumonia type: due to unspecified organism Qualified Code(s): J18.9 - Pneumonia, unspecified organism Code(s): J18.9 - Pneumonia, unspecified organism Status: Acute Assessment and Plan: * as suggested by admission imaging * follow culture data * complicated by #4 * on antibiotics (4) Chronic hypoxic respiratory failure: Code(s): J96.11 - Chronic respiratory failure with hypoxia Status: Acute Assessment and Plan: * follows with Pulmonary as an outpatient * presumably due to COPD * on 2L oxygen by [place] at baseline (5) Hyponatremia: Code(s): E87.1 - Hypo-osmolality and hyponatremia Status: Acute Assessment and Plan: * chronic issue * probably related due to kidney disease/ESRD, lung disease (COPD/VIJAY), chronic nausea, and possibly increased free water intake * pneumonia may be playing a role as well(?) * should correct to some degree with dialysis * follow trend (6) Anemia: Code(s): D64.9 - Anemia, unspecified Status: Chronic Assessment and Plan: * due to ESRD * Epogen with HD * follow trend of H/H (7) Hypertension: Code(s): I10 - Essential (primary) hypertension Status: Chronic Assessment and Plan: * elevated on admission/currently * fluid removal with HD may help to some degree * resume home BP medications * not sure why on both amlodipine AND diltiazem... * follow trend of hemodynamics (8) Diabetes mellitus: Code(s): E11.9 - Type 2 diabetes mellitus without complications Status: Chronic Assessment and Plan: * follow accu-cheks * glycemic control per hospitalist Will continue to follow. L Subjective Date/time seen: 10/24/24 14:51 Interval history: Follow-up for end stage renal disease on hemodialysis. Tolerating dialysis treatment at the time of my visit (seen on HD at 2:40pm); slightly confused (states she only does 2.5 hours dialysis treatments but confirmed with her outpatient dialysis clinic that her treatment time if 3hr and 45minutes -- the nurse I talked with did mention that the patient does have intermittent episodes of confusion); denies any nausea or vomiting when seen. Exam 2 Narrative: General: WD/WN female in NAD Heart: normal S1 and S2; no rub Lungs: coarse breath sounds; decreased at bases Abdomen: soft, nontender, nondistended, positive bowel sounds Extremities: no cyanosis or clubbing; trace edema Skin: warm and dry Objective Data Vital Signs Vital Signs: Vital Signs Temp Pulse Resp BP Pulse Ox O2 Del Method 10/24/24 14:45 89 171/78 H 10/24/24 14:30 90 205/98 H 10/24/24 14:23 89 202/97 H 10/24/24 14:10 96.4 F L 89 16 204/95 H 98 10/24/24 13:57 97.3 F L 70 20 210/110 H 97 10/24/24 08:05 70 12 10/24/24 08:00 Room Air 10/24/24 05:49 93 18 176/84 H 98 10/23/24 21:29 98.3 F 83 16 178/72 H 98 10/23/24 20:00 83 16 98 Room Air Intake/Output Intake/Output: Intake & Output 10/21/24 10/22/24 10/23/24 10/24/24 23:59 23:59 23:59 23:59 Intake Total 0 Output Total 2325 Balance -2325 Meds/Results Medications: Active Medications Generic Name Dose Route Start Last Admin Trade Name Freq PRN Reason Stop Dose Admin Acetaminophen 650 mg 10/23/24 14:00 Acetaminophen 325 Mg Tablet PO Q4H PRN Mild Pain (1-3) or Fever Hydrocodone Bitart/Acetaminophen 1 tab 10/24/24 14:13 Hydrocodone/Acetaminophen (*Crx) 7.5-325 Mg Tablet PO QID PRN PAIN RATED 7-10 Amlodipine Besylate 5 mg 10/25/24 09:00 Amlodipine Besylate 5 Mg Tablet PO DAILY DEMETRIO Apixaban 5 mg 10/24/24 21:00 Apixaban 5 Mg Tablet PO Q12H DEMETRIO Atorvastatin Calcium 20 mg 10/24/24 21:00 Atorvastatin 20 Mg Tablet PO HS DEMETRIO Clopidogrel Bisulfate 75 mg 10/24/24 09:00 10/24/24 08:31 Clopidogrel Bisulfate 75 Mg Tablet PO 75 mg DAILY DEMETRIO Administration Dextrose 12.5 gm 10/23/24 15:36 Dextrose 50% 25 Gm/50 Ml Syringe IV PUSH PRN PRN Hypoglycemia Protocol Diltiazem HCl 180 mg 10/23/24 21:00 10/23/24 21:43 Diltiazem Hcl Cd 180 Mg Cap.24hr PO 180 mg Q24H DEMETRIO Administration Glucagon 1 mg 10/23/24 15:36 Glucagon For Inj 1 Mg Vial IM PRN PRN Hypoglycemia Protocol Glucose 15 gm 10/23/24 15:36 Glucose Oral Gel 15 Gm Of Glucse In 37.5 Gm Tube PO PRN PRN Hypoglycemia Protocol Hydralazine HCl 10 mg 10/23/24 15:39 Hydralazine Hcl 20 Mg/Ml Vial IV PUSH Q8H PRN Blood Pressure - High Dextrose 1,000 mls @ 100 mls/hr 10/23/24 15:36 Dextrose 5% 1,000 Ml IVPB PRN PRN Hypoglycemia Protocol Dextrose/Sodium Chloride 1,000 mls @ 40 mls/hr 10/23/24 21:20 10/23/24 21:43 Dextrose 5% Sodium Chloride 0.9% IV CONT 40 mls/hr .Q24H DEMETRIO Administration Ceftriaxone Sodium 1 gm/ 50 mls @ 100 mls/hr 10/23/24 22:55 10/24/24 00:30 Sodium Chloride IVPB 100 mls/hr HS DEMETRIO Administration Azithromycin 500 mg/ Sodium 250 mls @ 250 mls/hr 10/23/24 22:55 10/24/24 00:30 Chloride IVPB 250 mls/hr HS DEMETRIO Administration Albumin Human 50 mls @ 999 mls/hr 10/23/24 23:47 Albutein IVPB 11/22/24 23:46 Q10M PRN HYPOTENSION Sodium Chloride 1,000 mls @ 50 mls/hr 10/24/24 14:05 10/24/24 17:24 Normal Saline Iv IV CONT 50 mls/hr .Q20H DEMETRIO Administration Insulin Aspart 1 - 2 units 10/23/24 21:00 10/23/24 21:28 Insulin Aspart (*Bkc) 100 Units/Ml SUB-Q Not Given On Hold: 10/23/24 21:05 HS [facility] Protocol Insulin Aspart 2 - 5 units 10/24/24 00:00 10/24/24 17:27 Insulin Aspart (*Bkc) 100 Units/Ml SUB-Q Not Given Q6HR [facility] Protocol Insulin Glargine 15 units 10/23/24 21:20 10/23/24 21:43 Insulin Glargine (*Bkc) 100 Units/Ml SUB-Q 15 units HS DEMETRIO Administration Levothyroxine Sodium 100 mcg 10/24/24 06:30 10/24/24 06:34 Levothyroxine Sodium 100 Mcg Tablet PO Not Given DAILY@0630 DEMETRIO Levothyroxine Sodium 75 mcg 10/24/24 06:30 10/24/24 06:34 Levothyroxine Sodium 75 Mcg Tablet PO Not Given DAILY@0630 DEMETRIO Metoclopramide HCl 10 mg 10/23/24 18:27 10/24/24 08:31 Metoclopramide Hcl Inj 10 Mg/2 Ml Vial IV PUSH 10 mg Q6HR PRN Administration nausea vomiting Miscellaneous Information 1 each 10/24/24 00:01 Clarify Renvela Dose And Frequency XX 11/23/24 00:00 CLARIFY DEMETRIO Miscellaneous Information 1 each 10/25/24 00:01 Clarify Norvasc Home Med--Pt On Cardizem Ok To Continue Norvasc? Or Continue To Hold? XX 11/24/24 00:00 CLARIFY DEMETRIO Montelukast Sodium 10 mg 10/24/24 14:20 10/24/24 17:22 Montelukast Sodium 10 Mg Tablet PO Not Given DAILY DEMETRIO Pantoprazole Sodium 40 mg 10/24/24 09:00 10/24/24 08:31 Pantoprazole Sodium Iv 40 Mg Vial IV PUSH 40 mg QAM DEMETRIO Administration Paroxetine HCl 40 mg 10/24/24 09:00 10/24/24 08:31 Paroxetine 20 Mg Tablet PO 40 mg DAILY DEMETRIO Administration Sevelamer Carbonate 0 mg 10/23/24 21:10 Sevelamer Carbonate 800 Mg Tablet BY MOUTH .COMPLEX DEMETRIO Umeclidinium/Vilanterol 1 puff 10/23/24 21:00 10/24/24 08:04 Umeclidinium/Vilanterol 62.5-25 Mcg Ellipta INHALATION 1 puff Q24H DEMETRIO Administration Vitamin B Complex/Folic Acid 1 cap 10/25/24 09:00 Vitamin B Cmplx/Vit C/Folic Ac 1 Capsule PO QAM [facility] Radiology Results: ITS Impressions Abdomen/Pelvis CT 10/23/24 11:57 IMPRESSION: 1. No acute intra-abdominal/pelvic process. 2. Small bilateral pleural effusions with consolidation in the basilar right lower lobe and favor atelectasis over pneumonia. 3. Severe bilateral renal atrophy with stones in the bilateral renal pelvises sees without hydronephrosis. Chest X-Ray 10/24/24 08:00 IMPRESSION: 1. Likely congestive heart failure with cardiomegaly, mild pulmonary edema and small bilateral pleural effusions. 2. Additional linear and patchy airspace opacities in the left mid and bilateral lower lung zones which could represent atelectasis or pneumonia. Labs Labs: Laboratory Tests 10/24/24 05:31 10/24/24 05:31 Calcium 10.2 Phosphorus 5.4 H Magnesium 1.9 Total Bilirubin 0.8 AST 22 ALT 11 Alkaline Phosphatase 73 Total Protein 7.0 Albumin 4.0
[2024-10-24] MEDS: SODIUM CHLORIDE 0.9% IV 1,000 ML 999 ML IV CONT (15:50)
--- NOTE | 2024-10-24 16:08 | P.CONGI_ITS ---
Assessment and Plan Assessment and plan (1) Nausea and vomiting: Qualifiers: Vomiting type: unspecified Qualified Code(s): R11.2 - Nausea with vomiting, unspecified Code(s): R11.2 - Nausea with vomiting, unspecified Status: Acute Assessment and Plan: due to gastroparesis she is on iv reglan, transition to ideally intranasal for better absorption continue with antiemetics and special diet for gastroparesis (eat small amount at times) probably domperidone could be an option (2) Gastroparesis: Code(s): K31.84 - Gastroparesis Status: Acute Assessment and Plan: ultimate treatment of gastroparesis if refractory to diet and medications could be G-POEM (3) Abdominal pain: Code(s): R10.9 - Unspecified abdominal pain Status: Acute (4) Diabetes mellitus: Code(s): E11.9 - Type 2 diabetes mellitus without complications Status: Chronic (5) ESRD (end stage renal disease) on dialysis: Code(s): N18.6 - End stage renal disease; Z99.2 - Dependence on renal dialysis Status: Acute Assessment and Plan: by civilian jail officer GI Consult Note Consult date/time: 10/24/24 16:08 Reason for consult: n/v, gastroparesis HPI: Tyson Smith is a 64 year old female longstanding history of diabetes, chronic renal failure, COPD, and CHF, on hemodialysis 3 times a week. She was recently in the hospital with intractable n/v due to gastroparesis, given reglan and sent home. She is here with poor oral intake and nausea. She is poor historian. Labs in the ED showed leukocytosis at 13.0, sodium of 130, chloride of 94, anion gap of 13, creatinine of 5.08, glucose of 272, CT abdomen pelvis show no acute intra-abdominal processes, small bilateral pleural effusions with consolidation likely atelectasis and bilateral kidney stones. Review of Systems 2 Constitutional: Constitutional: Denies chills Eyes: Eyes: Denies blurry vision ENT: Reports Normal hearing present and Denies neck pain Cardiovascular: Cardiovascular: Denies chest pain Respiratory: Respiratory: Denies cough Gastrointestinal: Gastrointestinal: Reports nausea and Reports vomiting Genitourinary: Comments: on dialysis Musculoskeletal: Musculoskeletal: Denies neck pain Integumentary/Breasts: Skin/Breast: Denies dry skin Neurologic: Reports Normal hearing present Psychiatric: Psychiatric: Denies behavioral changes [facility] Past Medical History Medical History (Updated 10/23/24 @ 22:54 by Emi Stevens APRN) CHF (congestive heart failure) Anxiety and depression History of CVA (cerebrovascular accident) VIJAY (obstructive sleep apnea) CAD (coronary artery disease) Hypothyroidism Other chronic pain Incomplete tear of left rotator cuff Chronic left shoulder pain Anemia Hypertension Hyperlipidemia ESRD (end stage renal disease) on dialysis COPD (chronic obstructive pulmonary disease) Diabetes mellitus Surgical History Surgical History S/P cholecystectomy History of thyroid surgery History of x2 Hx of appendectomy Family History Family History Father Diabetes mellitus Hypertension Cerebrovascular accident Family history of arthritis Family history of malignant neoplasm Mother Family history of malignant neoplasm Family history of diabetes mellitus in first degree relative Social History Social History Smoking packs per day: 0.5 Smoking cigarettes per day: 10.0 Years smoked: 20 Smoking pack-years: 10.00 Smoking status: Former smoker Tobacco type: cigarettes Second hand tobacco smoke exposure: No Alcohol intake: former Substance use: never Substance use type: former substance user and marijuana Lack of Transportation: No Lack of Food: Never True Current Housing: I Have Housing Concerned About Future Housing: No Difficulty Paying Gas/Electric Bills: No Difficulty Paying for Meds: No Currently Unemployed: No Education: Associate Degree Difficulty w/ Childcare or Family Care: No Living arrangements: with family Spiritual care concerns: No Meds Home Medications and Allergies Home Medications ?Medication ?Instructions ?Recorded ?Confirmed ?Type atorvastatin 20 mg tablet 20 mg PO HS 06/17/19 5 History clopidogrel 75 mg tablet 75 mg PO DAILY 06/17/1904/17 History hydrocodone 7.5 mg-acetaminophen 1 tablet PO QID PRN P ain 06/17/19 10/23/24 History 325 mg tablet insulin aspar prot-insulin aspart 35 unit subcut BID 0 06/17/19 10/23/24 History 100 unit/mL (70-30) subcutaneous pen (Novolog Mix 70-30FlexPen U-100) levothyroxine 175 mcg tablet 175 mcg PO DAILY 06/17/19 10/23/24 History paroxetine HCl 40 mg tablet 40 mg PO DAILY 06/17/19 History sevelamer carbonate 800 mg tablet See Rx Instructions .Route .COMPLEX 06/17/19 10/23/24 History montelukast 10 mg tablet 10 mg PO DAILY 01/02/2104/17 History vitamin B complex-vitamin C-folic 0.8 tablet PO DAILY 01/02/21 10/23/24 History acid 0.8 mg tablet (Deepa-Vikash) amlodipine 5 mg tablet 5 mg PO DAILY 10/08/2410/23 History apixaban 5 mg tablet (Eliquis) 5 mg PO Q12H 10/08/24 0 10/23/24 History diltiazem HCl 180 mg 180 mg PO Q24H 10/08/2404/17 History capsule,extended release 24 hr, controlled (DILT-XR) metoclopramide HCl 10 mg tablet 5 mg PO Q6H 10/08/24 0 10/23/24 History ondansetron 4 mg disintegrating 4 mg PO PRN 10/08/24 0 10/23/24 History tablet umeclidinium 62.5 mcg-vilanterol 1 inh inhalation Q24H 10/08/24 10/23/24 History 25 mcg/actuation powdr for inhalation (Anoro Ellipta) metoclopramide HCl 15 mg/spray 1 spray intranasal QID 4 weeks 10/14/24 10/23/24 Rx nasal spray with pump (Gimoti) #9.8 mL metoclopramide HCl 5 mg tablet 10 mg (2 x 5 mg) PO Q8H PRN nausea 10/23/24 Rx and vomiting #30 tabs pantoprazole 40 mg tablet,delayed 40 mg PO HS 4 weeks #28 tabs 10/23/24 Rx release (Protonix) Allergies Allergy/AdvReac Type Severity Reaction Status Date / Time No Known Allergies Allergy Verified 10/23/24 10:03 Vital Signs Vital Signs - 24 hr 10/23/24 20:00 10/23/24 21:29 10/24/24 05:49 Temperature 98.3 F Pulse Rate 83 83 93 Respiratory Rate 16 16 18 Blood Pressure 178/72 H 176/84 H Pulse Oximetry 98 98 98 Oxygen Delivery Room Air 10/24/24 08:00 10/24/24 08:05 10/24/24 13:57 Temperature 97.3 F L Pulse Rate 70 70 Respiratory Rate 12 20 Blood Pressure 210/110 H Pulse Oximetry 97 Oxygen Delivery Room Air 10/24/24 14:10 10/24/24 14:23 10/24/24 14:30 Temperature 96.4 F L Pulse Rate 89 89 90 Respiratory Rate 16 Blood Pressure 204/95 H 202/97 H 205/98 H Pulse Oximetry 98 Oxygen Delivery 10/24/24 14:45 10/24/24 15:00 10/24/24 15:15 Temperature Pulse Rate 89 88 89 Respiratory Rate Blood Pressure 171/78 H 203/74 H 189/69 H Pulse Oximetry Oxygen Delivery 10/24/24 15:30 10/24/24 15:45 10/24/24 16:00 Temperature Pulse Rate 90 94 92 Respiratory Rate Blood Pressure 191/75 H 176/73 H 176/89 H Pulse Oximetry Oxygen Delivery Exam 2 Const: General: comfortable and no acute distress Other: chronically ill appearing HENMT: Face/Nose/Sinus: Normal nares present Eyes: Sclera: sclerae normal Neck: Neck: supple Resp: Auscultation: clear to auscultation bilaterally Cardio: Rate: regular rate Rhythm: regular rhythm GI: Inspection: non-distended GI Palp: Yes Soft to palpation and No Tenderness to palpation present (GI) Auscultation: normal bowel sounds Skin: General skin exam: normal color Neuro: Speech: normal speech Motor exam (neuro): 5/5 motor strength present throughout Extrem: General: normal to inspection Psych: Mental Status: mental status grossly normal Results Labs 10/24/24 05:31 10/24/24 05:31 Labs: Short CBC 10/24/24 Range/Units 05:31 WBC 8.8 (4.5-10.0) K/mm3 Hgb 11.4 L (12.0-15.0) g/dL Hct 36.0 L (37.0-47.0) % Plt Count 280 (150-375) k/mm3 BMP 10/24/24 05:31 Sodium 125 L Potassium 4.9 Chloride 94 L Carbon Dioxide 19 L BUN 21 H Creatinine 6.14 H Glucose 246 H Calcium 10.2 Liver Function 10/24/24 Range/Units 05:31 Total Bilirubin 0.8 (0.2-1.3) mg/dL AST 22 (14-36) U/L ALT 11 (6-35) U/L Alkaline Phosphatase 73 (38-126) U/L Albumin 4.0 (3.5-5.1) g/dL
[2024-10-24] MEDS: SODIUM CHLORIDE 0.9% IV 1,000 ML 50 ML IV CONT (17:24)
[2024-10-24] MEDS: ATORVASTATIN 20 MG TABLET PO (20:44)
[2024-10-24] MEDS: APIXABAN 5 MG TABLET PO (20:44)
[2024-10-24] MEDS: HYDROcodone/acetaminophen (*CRX) 7.5-325 MG TABLET 1 TAB PO (20:45)
[2024-10-24] MEDS: dilTIAZem HCL CD 180 MG CAP.24HR PO (20:45)
[2024-10-24] MEDS: DEXTROSE 5%/0.9% SOD CHL 1,000 ML 40 ML IV CONT (20:46)
[2024-10-24] MEDS: INSULIN GLARGINE (*BKC) 100 UNITS/ML 15 UNITS SUB-Q (21:12)
--- NOTE | 2024-10-25 | ECHO_ITS ---
Patient Info Name: Tyson Smith Age: 64 years : 1960 Gender: Female Ht: 65 in Wt: 189 lbs BSA: 2.01 m2 HR: 79 bpm BP: 175 / 73 mmHg Technical Quality: Good Exam Date: 10/25/2024 12:22 PM Patient Status: I Admit Date: 10/24/2024 Exam Type: CA echo doppler color flow Complete two-dimensional, color flow and Doppler transthoracic echocardiogram is performed. Staff Referring Physician: Fernando Rich Pipe Racker: Clotilde Martin Attending Provider: Yee Celeste Summary 1. Complete two-dimensional, color flow and Doppler transthoracic echocardiogram is performed. 2. Left ventricular chamber dimension is normal. 3. Left ventricular systolic function is normal, estimated at 55-60. 4. There is mild concentric increased left ventricular wall thickness. 5. The left ventricular diastolic function is abnormal. 6. E/e' 29 is significantly elevated. 7. Left atrial chamber dimension is severely enlarged. 8. There is moderate aortic valve sclerosis. 9. There is moderate aortic valve stenosis with a peak velocity of 217 cm/s, mean gradient of 10 mmHg, and aortic valve area of 1.4 cm2. 10. The mitral valve has a mildly calcified annulus. 11. There is mild mitral valve regurgitation. 12. There is trace tricuspid valve regurgitation. 13. No pulmonary hypertension, estimated pulmonary arterial systolic pressure is 24 mmHg. 14. There is trace pulmonic regurgitation. Left Ventricle E/e' 29 is significantly elevated. Left ventricular chamber dimension is normal. Left ventricular systolic function is normal, estimated at 55-60. There is mild concentric increased left ventricular wall thickness. The left ventricular diastolic function is abnormal. Right Ventricle Right ventricular chamber dimension is normal. Right ventricular systolic function is normal. Left Atria Left atrial chamber dimension is severely enlarged. Right Atria Right atrial chamber dimension is normal. Aortic Valve The aortic valve is trileaflet. There is moderate aortic valve sclerosis. There is moderate aortic valve stenosis with a peak velocity of 217 cm/s, mean gradient of 10 mmHg, and aortic valve area of 1.4 cm2. There is no aortic valve regurgitation. Pulmonic Valve There is trace pulmonic regurgitation. Mitral Valve The mitral valve has a mildly calcified annulus. There is no mitral valve stenosis. There is mild mitral valve regurgitation. Tricuspid Valve There is trace tricuspid valve regurgitation. No pulmonary hypertension, estimated pulmonary arterial systolic pressure is 24 mmHg. Pericardium/Pleural There is no pericardial effusion. Inferior Vena Cava Normal inferior vena cava with >50% collapse upon inspiration consistent with normal right atrial pressure, 5 mmHg. Aorta The aortic root size at the sinus of Valsalva is normal. Left Ventricular Outflow Tract Name Value Normal LVOT 2D LVOT Diameter 1.8 cm LVOT Doppler LVOT Peak Velocity 107 cm/s LVOT Peak Gradient 5 mmHg LVOT Mean Gradient 3 mmHg LVOT VTI 24 cm LVOT VTI/AV VTI Ratio 0.6 LVOT Stroke Volume 61 ml LVOT CO 12.5 l/min LVOT CI 6.2 l/min/m2 Pulmonic Valve Name Value Normal PV Doppler PV Peak Velocity 116 cm/s PV Peak Gradient 5 mmHg Mitral Valve Name Value Normal MV Doppler MV Peak Gradient 13 mmHg MV Mean Gradient 5 mmHg MV Area (Cont Eq VTI) 1.7 cm2 MV Diastolic Function MV E Peak Velocity 162 cm/s MV A Peak Velocity 85 cm/s MV E/A 1.9 MV Decel Time (PW) 134 ms MV Annular TDI MV E/e' (Septal) 32.2 MV E/e' (Lateral) 27.4 MV E/e' (Average) 29.8 Tricuspid Valve Name Value Normal TV Regurgitation Doppler TR Peak Velocity 218 cm/s TR Peak Gradient 19 mmHg Estimated PAP/RSVP RA Pressure 5 mmHg <=5 PA Systolic Pressure 24 mmHg <36 RV Systolic Pressure 24 mmHg <36 TV Annular TDI TV Lateral Claudia s' Velocity 11.7 cm/s >=9.5 Aorta Name Value Normal Ascending Aorta Ao Root Diameter (MM) 3.0 cm Ao Root Diam Index (MM) 1.5 cm/m2 Aortic Valve Name Value Normal AV Doppler AV Peak Velocity 217 cm/s AV Peak Gradient 19 mmHg AV Mean Gradient 10 mmHg AV VTI 42 cm AV Area (Cont Eq VTI) 1.4 cm2 >=3.0 AV Area (Cont Eq Girish) 1.3 cm2 AV DI (Girish) 0.49 AV Regurgitation 2D LVOT Area 2.6 cm2 Ventricles Name Value Normal LV Dimensions 2D/MM IVS Diastolic Thickness (2D) 1.2 cm 0.6-1.0 LVID Diastole (2D) 5.2 cm 3.8-5.2 LVIW Diastolic Thickness (2D) 1.2 cm 0.6-0.9 LVID Systole (2D) 3.8 cm 2.2-3.5 LVOT Diameter 1.8 cm LV Mass (2D Cubed) 249.93 g 67.00-162.00 LV Mass Index (2D Cubed) 124 g/m2 43-95 Relative Wall Thickness (2D) 0.48 <=0.42 LV Fractional Shortening/Ejection Fraction 2D/MM LV Fractional Shortening (2D) 26 % 27-45 LV EF (2D Teichholz) 51 % LV Diastolic Volume (4C MOD) 126 ml LV EF (4C MOD) 51 % LV Diastolic Volume (2C MOD) 176 ml LV EF (2C MOD) 58 % LV Diastolic Volume (BP MOD) 155 ml 46-106 LV Diastolic Volume Index (BP MOD) 77 ml/m2 29-61 LV Systolic Volume (BP MOD) 70 ml 14-42 LV Systolic Volume Index (BP MOD) 35 ml/m2 8-24 LV EF (BP MOD) 55 % 54-74 LV Diastolic Length (4C) 8.1 cm LV Systolic Length (4C) 6.5 cm LV Stroke Volume (4C MOD) 65 ml Atria Name Value Normal LA Dimensions LA Volume (4C A-L) 105 ml LA Volume (BP A-L) 99 ml RA Dimensions RA Systolic Major [place] Length (4C) 4.8 cm 2.2-2.8 RA Area (4C) 16.4 cm2 <=18.0 Report Signatures
[2024-10-25 05:31] VITALS: BP 175/73; PULSE 79; RESP 16; TEMP 36.5; O2SAT 96
[2024-10-25] MEDS: LEVOTHYROXINE SODIUM 75 MCG TABLET PO (06:17)
[2024-10-25] MEDS: LEVOTHYROXINE SODIUM 100 MCG TABLET PO (06:17)
[2024-10-25 06:19] LABS: Hematocrit 31.9 % (37.0-47.0); Hemoglobin 10.2 g/dL (12.0-15.0); Immature Granulocyte Percent A 0.2 % (0-0.5); Lymphocytes Absolute Auto 1.05 K/mm3 (0.9-3.2); Mean Corpuscular HGB Conc 32.0 g/dl (32-36); Mean Corpuscular Hemoglobin 28.2 pg (26-34); Mean Corpuscular Volume 88.1 fl (80-100); Nucleated Red Blood Cells Absolute Auto 0.000 K/mm3 (0.0-0.012); Nucleated Red Blood Cells Perc 0.0 % (0.0-0.2); Platelet Count Result 246 k/mm3 (150-375); Red Blood Count 3.62 M/mm3 (4.2-5.4); White Blood Count 8.6 K/mm3 (4.5-10.0)
[2024-10-25 06:40] LABS: Alanine Aminotransferase 12 U/L (6-35); Albumin Level 3.3 g/dL (3.5-5.1); Alkaline Phosphatase 57 U/L (38-126); Anion Gap 7 mmol/L (4-12); Aspartate Amino Transferase 17 U/L (14-36); Bilirubin,Total 0.5 mg/dL (0.2-1.3); Blood Urea Nitrogen 17 mg/dL (7-17); Calcium 9.7 mg/dL (8.4-10.2); Carbon Dioxide 26 mmol/L (22-30); Chloride 94 mmol/L (98-107); Estimated CRCL calculation 13 ml/min; Estimated Glomerular Filt Rate 10; Glucose 124 mg/dL (65-110); Potassium 3.6 mmol/L (3.4-5.0); Sodium 127 mmol/L (137-145); Total Protein 5.9 g/dL (6.3-8.2)
--- NOTE | 2024-10-25 08:37 | P.PNIM_ITS ---
Progress Note: A&P Assessment and Plan (1) Nausea and vomiting: Qualifiers: Vomiting type: unspecified Qualified Code(s): R11.2 - Nausea with vomiting, unspecified Code(s): R11.2 - Nausea with vomiting, unspecified Status: Acute Assessment and Plan: - likely secondary to gastroparesis - patient was prescribed intranasal Reglan, but unable to afford - held IV fluids due to ESRD and concern for edema on CXR - continue IV Reglan, scheduled with meals - GI consulted - consider domperidone, may need to consider G-POEM (2) Gastroparesis: Code(s): K31.84 - Gastroparesis Status: Acute Assessment and Plan: - suspected in setting of T2DM, but has yet to have a gastric emptying study - management as above (3) Hypertension: Code(s): I10 - Essential (primary) hypertension Status: Chronic Assessment and Plan: - continue amlodipine, diltiazem (4) CHF (congestive heart failure): Code(s): I50.9 - Heart failure, unspecified Status: Acute Assessment and Plan: - reports prior history, but no echo to review - CXR with concern for edema, but on RA with no dyspnea, lungs clear on exam - checking echo - hold IV fluids - spot diuresis as needed (5) Afib: Code(s): I48.91 - Unspecified atrial fibrillation Status: Acute Assessment and Plan: - continue Catalina Jama (6) Diabetes mellitus: Code(s): E11.9 - Type 2 diabetes mellitus without complications Status: Chronic Assessment and Plan: - continue Lantus 15u and low dose SSI - monitor POCT glucose - hypoglycemia management protocol (7) Hyponatremia: Code(s): E87.1 - Hypo-osmolality and hyponatremia Status: Acute Assessment and Plan: - Na 127 - holding IV fluids due to concerns for hypervolemia -volume management with dialysis (8) ESRD (end stage renal disease) on dialysis: Code(s): N18.6 - End stage renal disease; Z99.2 - Dependence on renal dialysis Status: Acute Assessment and Plan: - on dialysis MW - nephrology followong (9) COPD (chronic obstructive pulmonary disease): Qualifiers: COPD type: COPD with acute exacerbation Qualified Code(s): J44.1 - Chronic obstructive pulmonary disease with (acute) exacerbation Code(s): J44.9 - Chronic obstructive pulmonary disease, unspecified Status: Acute Assessment and Plan: - CXR with likely mild pulmonary edema and small bilateral pleural effusions, linear and patchy opacities in the left mid and bilateral lower lung zones - atelectasis vs. pneumonia - low concern for pneumonia given afebrile, no leukocytosis without cough. Monitor off antibiotics for now (10) Chronic hypoxic respiratory failure: Code(s): J96.11 - Chronic respiratory failure with hypoxia Status: Acute Assessment and Plan: - on 2L NC at night at baseline Subjective Date/time seen: 10/25/24 08:37 Interval history: 65-year-old female past medical history of CHF, CVA, CAD, hypothyroidism dialysis Tuesday, diabetes, gastroparesis presents the hospital with uncontrolled nausea and vomiting. Patient seen and examined at bedside. Still with nausea, but no vomiting. Somewhat improved from admission. Discussed scheduling Reglan. Review of Systems Review of Systems: 12 systems were reviewed and are negativ e except for as per HPI. All systems reviewed & are unremarkable except as noted in HPI and below Exam Narrative: General: NAD, obese Eyes: EOMI ENT: neck supple Cardiovascular: Regular rate and rhythm Respiratory: Clear to auscultation, respirations even and unlabored on RA Gastrointestinal: Soft, mild epigastric tenderness with palpation Genitourinary: no suprapubic tenderness Musculoskeletal: No edema Skin: warm, dry Neuro: Alert. Psych: Mood appropriate Objective Data Vital Signs Vital Signs: Vital Signs - 24 hr 10/24/24 13:57 10/24/24 14:10 10/24/24 14:23 Temperature 97.3 F L 96.4 F L Pulse Rate 70 89 89 Respiratory Rate 20 16 Blood Pressure 210/110 H 204/95 H 202/97 H Pulse Oximetry 97 98 Oxygen Delivery 10/24/24 14:30 10/24/24 14:45 10/24/24 15:00 Temperature Pulse Rate 90 89 88 Respiratory Rate Blood Pressure 205/98 H 171/78 H 203/74 H Pulse Oximetry Oxygen Delivery 10/24/24 15:15 10/24/24 15:30 10/24/24 15:45 Temperature Pulse Rate 89 90 94 Respiratory Rate Blood Pressure 189/69 H 191/75 H 176/73 H Pulse Oximetry Oxygen Delivery 10/24/24 16:00 10/24/24 16:15 10/24/24 16:30 Temperature Pulse Rate 92 89 92 Respiratory Rate Blood Pressure 176/89 H 197/94 H 181/92 H Pulse Oximetry Oxygen Delivery 10/24/24 16:46 10/24/24 16:50 10/24/24 17:00 Temperature 97.6 F Pulse Rate 82 85 87 Respiratory Rate 16 Blood Pressure 163/67 H 163/75 H 175/78 H Pulse Oximetry 96 Oxygen Delivery 10/24/24 20:00 10/24/24 20:56 10/25/24 05:31 Temperature 98.9 F 97.7 F Pulse Rate 95 95 79 Respiratory Rate 18 18 16 Blood Pressure 212/89 H 175/73 H Pulse Oximetry 97 97 96 Oxygen Delivery Room Air Intake/Output Intake/Output: Intake & Output 09/01/25 09/02/25 09/03/25 09/04/25 23:59 23:59 23:59 23:59 Intake Total 1702 75 Output Total 2325 Balance -623 75 Meds/Results Medications: Active Medications Generic Name Dose Route Start Last Admin Trade Name Sunny PRN Reason Stop Dose Admin Acetaminophen 650 mg 10/23/24 14:00 Acetaminophen 325 Mg Tablet PO Q4H PRN Mild Pain (1-3) or Fever Hydrocodone Bitart/Acetaminophen 1 tab 10/24/24 14:13 10/24/24 20:45 Hydrocodone/Acetaminophen (*Crx) 7.5-325 Mg Tablet PO 1 tab QID PRN Administration PAIN RATED 7-10 Amlodipine Besylate 5 mg 10/25/24 09:00 Amlodipine Besylate 5 Mg Tablet PO DAILY DEMETRIO Apixaban 5 mg 10/24/24 21:00 10/24/24 20:44 Apixaban 5 Mg Tablet PO 5 mg Q12H DEMETRIO Administration Atorvastatin Calcium 20 mg 10/24/24 21:00 10/24/24 20:44 Atorvastatin 20 Mg Tablet PO 20 mg HS DEMETRIO Administration Clopidogrel Bisulfate 75 mg 10/24/24 09:00 10/24/24 08:31 Clopidogrel Bisulfate 75 Mg Tablet PO 75 mg DAILY DEMETRIO Administration Dextrose 12.5 gm 10/23/24 15:36 Dextrose 50% 25 Gm/50 Ml Syringe IV PUSH PRN PRN Hypoglycemia Protocol Diltiazem HCl 180 mg 10/23/24 21:00 10/24/24 20:45 Diltiazem Hcl Cd 180 Mg Cap.24hr PO 180 mg Q24H DEMETRIO Administration Glucagon 1 mg 10/23/24 15:36 Glucagon For Inj 1 Mg Vial IM PRN PRN Hypoglycemia Protocol Glucose 15 gm 10/23/24 15:36 Glucose Oral Gel 15 Gm Of Glucse In 37.5 Gm Tube PO PRN PRN Hypoglycemia Protocol Hydralazine HCl 10 mg 10/23/24 15:39 10/24/24 21:11 Hydralazine Hcl 20 Mg/Ml Vial IV PUSH 10 mg Q8H PRN Administration Blood Pressure - High Dextrose 1,000 mls @ 100 mls/hr 10/23/24 15:36 Dextrose 5% 1,000 Ml IVPB PRN PRN Hypoglycemia Protocol Dextrose/Sodium Chloride 1,000 mls @ 40 mls/hr 10/23/24 21:20 10/24/24 20:46 Dextrose 5% Sodium Chloride 0.9% IV CONT 40 mls/hr .Q24H DEMETRIO Administration Ceftriaxone Sodium 1 gm/ 50 mls @ 100 mls/hr 10/23/24 22:55 10/24/24 20:47 Sodium Chloride IVPB 100 mls/hr HS DEMETRIO Administration Azithromycin 500 mg/ Sodium 250 mls @ 250 mls/hr 10/23/24 22:55 10/24/24 20:46 Chloride IVPB 250 mls/hr HS DEMETRIO Administration Albumin Human 50 mls @ 999 mls/hr 10/23/24 23:47 Albutein IVPB 11/22/24 23:46 Q10M PRN HYPOTENSION Insulin Aspart 1 - 2 units 10/23/24 21:00 10/23/24 21:28 Insulin Aspart (*Bkc) 100 Units/Ml SUB-Q Not Given On Hold: 10/23/24 21:05 HS [facility] Protocol Insulin Aspart 2 - 5 units 10/24/24 00:00 10/25/24 05:39 Insulin Aspart (*Bkc) 100 Units/Ml SUB-Q Not Given Q6HR [facility] Protocol Insulin Glargine 15 units 10/23/24 21:20 10/24/24 21:12 Insulin Glargine (*Bkc) 100 Units/Ml SUB-Q 15 units HS DEMETRIO Administration Levothyroxine Sodium 100 mcg 10/24/24 06:30 10/25/24 06:17 Levothyroxine Sodium 100 Mcg Tablet PO 100 mcg DAILY@0630 DEMETRIO Administration Levothyroxine Sodium 75 mcg 10/24/24 06:30 10/25/24 06:17 Levothyroxine Sodium 75 Mcg Tablet PO 75 mcg DAILY@0630 DEMETRIO Administration Metoclopramide HCl 10 mg 10/23/24 18:27 10/24/24 20:46 Metoclopramide Hcl Inj 10 Mg/2 Ml Vial IV PUSH 10 mg Q6HR PRN Administration nausea vomiting Miscellaneous Information 1 each 10/24/24 00:01 Clarify Renvela Dose And Frequency XX 11/23/24 00:00 CLARIFY DEMETRIO Montelukast Sodium 10 mg 10/24/24 14:20 10/24/24 17:22 Montelukast Sodium 10 Mg Tablet PO Not Given DAILY DEMETRIO Pantoprazole Sodium 40 mg 10/24/24 09:00 10/24/24 08:31 Pantoprazole Sodium Iv 40 Mg Vial IV PUSH 40 mg QAM DEMETRIO Administration Paroxetine HCl 40 mg 10/24/24 09:00 10/24/24 08:31 Paroxetine 20 Mg Tablet PO 40 mg DAILY DEMETRIO Administration Sevelamer Carbonate 0 mg 10/23/24 21:10 Sevelamer Carbonate 800 Mg Tablet BY MOUTH .COMPLEX DEMETRIO Umeclidinium/Vilanterol 1 puff 10/23/24 21:00 10/24/24 08:04 Umeclidinium/Vilanterol 62.5-25 Mcg Ellipta INHALATION 1 puff Q24H DEMETRIO Administration Vitamin B Complex/Folic Acid 1 cap 10/25/24 09:00 Vitamin B Cmplx/Vit C/Folic Ac 1 Capsule PO QAM [facility] Radiology Results: ITS Impressions Abdomen/Pelvis CT 10/23/24 11:57 IMPRESSION: 1. No acute intra-abdominal/pelvic process. 2. Small bilateral pleural effusions with consolidation in the basilar right lower lobe and favor atelectasis over pneumonia. 3. Severe bilateral renal atrophy with stones in the bilateral renal pelvises sees without hydronephrosis. Chest X-Ray 10/24/24 08:00 IMPRESSION: 1. Likely congestive heart failure with cardiomegaly, mild pulmonary edema and small bilateral pleural effusions. 2. Additional linear and patchy airspace opacities in the left mid and bilateral lower lung zones which could represent atelectasis or pneumonia. Labs Labs: Laboratory Results - last 24 hr 10/24/24 10/24/24 10/25/24 11:17 17:26 00:33 WBC RBC Hgb Hct MCV MCH MCHC RDW Plt Count MPV Immature Gran % (Auto) Neut % (Auto) Lymph % (Auto) [place] % (Auto) Eos % (Auto) Baso % (Auto) Lymph # (Auto) [place] # (Auto) Eos # (Auto) Baso # (Auto) Abs Immat Gran (auto) Absolute Neuts (auto) Absolute Nucleated RBC Nucleated RBC % Sodium Potassium Chloride Carbon Dioxide Anion Gap BUN Creatinine Estim Creat Clear Calc Estimated GFR Glucose POC Capillary Glucose 283 H 148 H 151 H Calcium Phosphorus Total Bilirubin AST ALT Alkaline Phosphatase Total Protein Albumin 10/25/24 10/25/24 10/25/24 05:34 06:08 06:08 WBC 8.6 RBC 3.62 L Hgb 10.2 L Hct 31.9 L MCV 88.1 MCH 28.2 MCHC 32.0 RDW 14.2 Plt Count 246 MPV 9.3 Immature Gran % (Auto) 0.2 Neut % (Auto) 78.5 H Lymph % (Auto) 12.2 L [place] % (Auto) 8.2 Eos % (Auto) 0.2 Baso % (Auto) 0.7 Lymph # (Auto) 1.05 [place] # (Auto) 0.7 H Eos # (Auto) 0.0 Baso # (Auto) 0.1 Abs Immat Gran (auto) 0.02 Absolute Neuts (auto) 6.8 H Absolute Nucleated RBC 0.000 Nucleated RBC % 0.0 Sodium 127 L Potassium 3.6 Chloride 94 L Carbon Dioxide 26 Anion Gap 7 BUN 17 Creatinine 4.44 H Estim Creat Clear Calc 13 Estimated GFR 10 L Glucose 124 H POC Capillary Glucose 129 H Calcium 9.7 Phosphorus 4.3 Cancelled Total Bilirubin 0.5 AST 17 ALT 12 Alkaline Phosphatase 57 Total Protein 5.9 L Albumin 3.3 L Quality VTE Prophylaxis VTE prophylaxis: mechanical ordered
[2024-10-25] MEDS: APIXABAN 5 MG TABLET PO ×2 (08:50→21:48)
[2024-10-25] MEDS: PANTOPRAZOLE SODIUM IV 40 MG VIAL IV PUSH (08:50)
[2024-10-25] MEDS: CLOPIDOGREL BISULFATE 75 MG TABLET PO (08:50)
[2024-10-25] MEDS: MONTELUKAST SODIUM 10 MG TABLET PO (08:50)
[2024-10-25] MEDS: VITAMIN B CMPLX/VIT C/FOLIC AC 1 CAPSULE 1 CAP PO (08:50)
[2024-10-25] MEDS: METOCLOPRAMIDE HCL INJ 10 MG/2 ML VIAL IV PUSH ×2 (10:43→16:19)
--- NOTE | 2024-10-25 12:50 | P.PNNP_ITS ---
Progress Note: A&P Assessment and Plan (1) End stage renal disease: Code(s): N18.6 - End stage renal disease Status: Chronic Assessment and Plan: * HD tomorrow * continue Tuesday/Tuesday/Tuesday dialysis schedule while hospitalized * follow trend of electrolytes, volume status and clearance * outpatient dialysis unit = 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 Mathias (2) Nausea and vomiting: Qualifiers: Vomiting type: unspecified Qualified Code(s): R11.2 - Nausea with vomiting, unspecified Code(s): R11.2 - Nausea with vomiting, unspecified Status: Acute Assessment and Plan: * no vomiting but nausea persists * suspect secondary to known history of gastroparesis * unable to afford nasal reglan for outpatient use * IV reglan while hospitalized * GI following with recommendations noted * admission CT of A/P noted * continue supportive therapy (3) Pneumonia: Qualifiers: Laterality: bilateral Lung location: lower lobe of lung Pneumonia type: due to unspecified organism Qualified Code(s): J18.9 - Pneumonia, unspecified organism Code(s): J18.9 - Pneumonia, unspecified organism Status: Acute Assessment and Plan: * as suggested by admission imaging * follow culture data * complicated by #4 * on antibiotics (4) Chronic hypoxic respiratory failure: Code(s): J96.11 - Chronic respiratory failure with hypoxia Status: Acute Assessment and Plan: * follows with Pulmonary as an outpatient * presumably due to COPD * on 2L oxygen by NC at night and PRN during the day (5) Hyponatremia: Code(s): E87.1 - Hypo-osmolality and hyponatremia Status: Acute Assessment and Plan: * chronic issue * probably related due to kidney disease/ESRD, lung disease (COPD/VIJAY), chronic nausea, and possibly increased free water intake * pneumonia may be playing a role as well(?) * should correct to some degree with dialysis * follow trend (6) Anemia: Code(s): D64.9 - Anemia, unspecified Status: Chronic Assessment and Plan: * due to ESRD * Epogen with HD * follow trend of H/H (7) Hypertension: Code(s): I10 - Essential (primary) hypertension Status: Chronic Assessment and Plan: * elevated on admission/currently * fluid removal with HD may help to some degree * resume home BP medications * not sure why on both amlodipine AND diltiazem... * will d/c amlodipine in favor of lisinopril * follow trend of hemodynamics (8) Diabetes mellitus: Code(s): E11.9 - Type 2 diabetes mellitus without complications Status: Chronic Assessment and Plan: * follow accu-cheks * glycemic control per hospitalist Will continue to follow. L Subjective Date/time seen: 10/25/24 12:50 Interval history: Follow-up for end stage renal disease on hemodialysis. Tolerated dialysis treatment yesterday (although refused to stay on dialysis for full duration of treatment); no apparent distress at the time of my visit but still report ongoing nausea despite IV reglan but no vomiting; appetite remains poor due to nausea as well. Exam 2 Narrative: General: WD/WN female in NAD Heart: normal S1 and S2; no rub Lungs: coarse breath sounds; decreased at bases Abdomen: soft, nontender, nondistended, positive bowel sounds Extremities: no cyanosis or clubbing; trace edema Skin: warm and intact Objective Data Vital Signs Vital Signs: Vital Signs Temp Pulse Resp BP Pulse Ox O2 Del Method 10/25/24 12:00 97.5 F L 77 17 166/69 H 100 10/25/24 08:00 Room Air 10/25/24 05:31 97.7 F 79 16 175/73 H 96 10/24/24 20:56 98.9 F 95 18 212/89 H 97 10/24/24 20:00 95 18 97 Room Air 10/24/24 17:00 97.6 F 87 16 175/78 H 96 10/24/24 16:50 85 163/75 H 10/24/24 16:46 82 163/67 H 10/24/24 16:30 92 181/92 H 10/24/24 16:15 89 197/94 H 10/24/24 16:00 92 176/89 H Intake/Output Intake/Output: Intake & Output 10/22/24 10/23/24 10/24/24 10/25/24 23:59 23:59 23:59 23:59 Intake Total 1702 835 Output Total 2325 Balance -623 835 Meds/Results Medications: Active Medications Generic Name Dose Route Start Last Admin Trade Name Freq PRN Reason Stop Dose Admin Acetaminophen 650 mg 10/23/24 14:00 Acetaminophen 325 Mg Tablet PO Q4H PRN Mild Pain (1-3) or Fever Hydrocodone Bitart/Acetaminophen 1 tab 10/24/24 14:13 10/24/24 20:45 Hydrocodone/Acetaminophen (*Crx) 7.5-325 Mg Tablet PO 1 tab QID PRN Administration PAIN RATED 7-10 Amlodipine Besylate 5 mg 10/25/24 09:00 10/25/24 08:50 Amlodipine Besylate 5 Mg Tablet PO 5 mg DAILY DEMETRIO Administration Apixaban 5 mg 10/24/24 21:00 10/25/24 08:50 Apixaban 5 Mg Tablet PO 5 mg Q12H DEMETRIO Administration Atorvastatin Calcium 20 mg 10/24/24 21:00 10/24/24 20:44 Atorvastatin 20 Mg Tablet PO 20 mg HS DEMETRIO Administration Clopidogrel Bisulfate 75 mg 10/24/24 09:00 10/25/24 08:50 Clopidogrel Bisulfate 75 Mg Tablet PO 75 mg DAILY DEMETRIO Administration Dextrose 12.5 gm 10/23/24 15:36 Dextrose 50% 25 Gm/50 Ml Syringe IV PUSH PRN PRN Hypoglycemia Protocol Diltiazem HCl 180 mg 10/23/24 21:00 10/24/24 20:45 Diltiazem Hcl Cd 180 Mg Cap.24hr PO 180 mg Q24H DEMETRIO Administration Glucagon 1 mg 10/23/24 15:36 Glucagon For Inj 1 Mg Vial IM PRN PRN Hypoglycemia Protocol Glucose 15 gm 10/23/24 15:36 Glucose Oral Gel 15 Gm Of Glucse In 37.5 Gm Tube PO PRN PRN Hypoglycemia Protocol Hydralazine HCl 10 mg 10/23/24 15:39 10/24/24 21:11 Hydralazine Hcl 20 Mg/Ml Vial IV PUSH 10 mg Q8H PRN Administration Blood Pressure - High Dextrose 1,000 mls @ 100 mls/hr 10/23/24 15:36 Dextrose 5% 1,000 Ml IVPB PRN PRN Hypoglycemia Protocol Dextrose/Sodium Chloride 1,000 mls @ 40 mls/hr 10/23/24 21:20 10/24/24 20:46 Dextrose 5% Sodium Chloride 0.9% IV CONT 40 mls/hr On Hold: 10/25/24 08:49 .Q24H DEMETRIO Administration Albumin Human 50 mls @ 999 mls/hr 10/23/24 23:47 Albutein IVPB 11/22/24 23:46 Q10M PRN HYPOTENSION Insulin Aspart 1 - 2 units 10/23/24 21:00 10/23/24 21:28 Insulin Aspart (*Bkc) 100 Units/Ml SUB-Q Not Given On Hold: 10/23/24 21:05 HS [facility] Protocol Insulin Aspart 2 - 5 units 10/24/24 00:00 10/25/24 11:43 Insulin Aspart (*Bkc) 100 Units/Ml SUB-Q Not Given Q6HR [facility] Protocol Insulin Glargine 15 units 10/23/24 21:20 10/24/24 21:12 Insulin Glargine (*Bkc) 100 Units/Ml SUB-Q 15 units HS DEMETRIO Administration Levothyroxine Sodium 100 mcg 10/24/24 06:30 10/25/24 06:17 Levothyroxine Sodium 100 Mcg Tablet PO 100 mcg DAILY@0630 DEMETRIO Administration Levothyroxine Sodium 75 mcg 10/24/24 06:30 10/25/24 06:17 Levothyroxine Sodium 75 Mcg Tablet PO 75 mcg DAILY@0630 DEMETRIO Administration Metoclopramide HCl 10 mg 10/25/24 16:30 Metoclopramide Hcl Inj 10 Mg/2 Ml Vial IV PUSH AC DEMETRIO Montelukast Sodium 10 mg 10/24/24 14:20 10/25/24 08:50 Montelukast Sodium 10 Mg Tablet PO 10 mg DAILY DEMETRIO Administration Ondansetron HCl 4 mg 10/25/24 11:08 Ondansetron Inj 4 Mg/2 Ml Vial IV PUSH Q6H PRN Nausea And Vomiting Pantoprazole Sodium 40 mg 10/24/24 09:00 10/25/24 08:50 Pantoprazole Sodium Iv 40 Mg Vial IV PUSH 40 mg QAM DEMETRIO Administration Paroxetine HCl 40 mg 10/24/24 09:00 10/25/24 08:50 Paroxetine 20 Mg Tablet PO 40 mg DAILY DEMETRIO Administration Perflutren Lipid Microsphere 0 ml 10/25/24 11:06 Perflutren Lipid Microspheres 1.5 Ml Vial Diluted To 10 Ml Total Volume IV PUSH 10/28/24 11:06 ONCE PRN adequate visualization Protocol Sevelamer Carbonate 2,400 mg 10/25/24 17:00 Sevelamer Carbonate 800 Mg Tablet BY MOUTH BIDWM [facility] Umeclidinium/Vilanterol 1 puff 10/23/24 21:00 10/24/24 08:04 Umeclidinium/Vilanterol 62.5-25 Mcg Ellipta INHALATION 1 puff Q24H DEMETRIO Administration Vitamin B Complex/Folic Acid 1 cap 10/25/24 09:00 10/25/24 08:50 Vitamin B Cmplx/Vit C/Folic Ac 1 Capsule PO 1 cap QAM DEMETRIO Administration Radiology Results: ITS Impressions Abdomen/Pelvis CT 10/23/24 11:57 IMPRESSION: 1. No acute intra-abdominal/pelvic process. 2. Small bilateral pleural effusions with consolidation in the basilar right lower lobe and favor atelectasis over pneumonia. 3. Severe bilateral renal atrophy with stones in the bilateral renal pelvises sees without hydronephrosis. Chest X-Ray 10/24/24 08:00 IMPRESSION: 1. Likely congestive heart failure with cardiomegaly, mild pulmonary edema and small bilateral pleural effusions. 2. Additional linear and patchy airspace opacities in the left mid and bilateral lower lung zones which could represent atelectasis or pneumonia. Labs Labs: Laboratory Tests 10/25/24 06:08 10/25/24 06:08 Calcium 9.7 Phosphorus 4.3 Total Bilirubin 0.5 AST 17 ALT 12 Alkaline Phosphatase 57 Total Protein 5.9 L Albumin 3.3 L Procalcitonin 0.3
[2024-10-25 14:00] VITALS: BP 166/69; PULSE 77; RESP 17; TEMP 36.4; O2SAT 100
[2024-10-25 14:02] LABS: Procalcitonin 0.3 ng/mL
--- NOTE | 2024-10-25 15:53 | P.PNGI_ITS ---
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 (2) Gastroparesis: Code(s): K31.84 - Gastroparesis Status: Acute Assessment and Plan: medical treatment for now (3) Diabetes mellitus: Code(s): E11.9 - Type 2 diabetes mellitus without complications Status: Chronic (4) ESRD (end stage renal disease) on dialysis: Code(s): N18.6 - End stage renal disease; Z99.2 - Dependence on renal dialysis Status: Acute Assessment and Plan: 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 (5) COPD (chronic obstructive pulmonary disease): Qualifiers: COPD type: COPD with acute exacerbation Qualified Code(s): J44.1 - Chronic obstructive pulmonary disease with (acute) exacerbation Code(s): J44.9 - Chronic obstructive pulmonary disease, unspecified Status: Acute Subjective Date/time seen: 10/25/24 15:53 Interval history: still quite nauseous despite reglan iv no emesis but poor appetite family member says that she had phenergan in the past Review of Systems Review of Systems: All systems reviewed & are unremarkable except as noted in HPI and below Exam Const: General: comfortable and no acute distress Other: chronically ill appearing HENMT: Face/Nose/Sinus: Normal nares present Eyes: Sclera: sclerae normal Neck: Neck: supple Resp: Auscultation: clear to auscultation bilaterally Cardio: Rate: regular rate Rhythm: regular rhythm GI: Inspection: non-distended GI Palp: Yes Soft to palpation and No Tenderness to palpation present (GI) Auscultation: normal bowel sounds Skin: General skin exam: normal color Neuro: Speech: normal speech Motor exam (neuro): 5/5 motor strength present throughout Extrem: General: normal to inspection Psych: Mental Status: mental status grossly normal Objective Data Vital Signs Vital Signs: Vital Signs - 24 hr 10/24/24 16:00 10/24/24 16:15 10/24/24 16:30 Temperature Pulse Rate 92 89 92 Respiratory Rate Blood Pressure 176/89 H 197/94 H 181/92 H Pulse Oximetry Oxygen Delivery 10/24/24 16:46 10/24/24 16:50 10/24/24 17:00 Temperature 97.6 F Pulse Rate 82 85 87 Respiratory Rate 16 Blood Pressure 163/67 H 163/75 H 175/78 H Pulse Oximetry 96 Oxygen Delivery 10/24/24 20:00 10/24/24 20:56 10/25/24 05:31 Temperature 98.9 F 97.7 F Pulse Rate 95 95 79 Respiratory Rate 18 18 16 Blood Pressure 212/89 H 175/73 H Pulse Oximetry 97 97 96 Oxygen Delivery Room Air 10/25/24 08:00 10/25/24 14:00 Temperature 97.5 F L Pulse Rate 77 Respiratory Rate 17 Blood Pressure 166/69 H Pulse Oximetry 100 Oxygen Delivery Room Air Intake/Output Intake/Output: Intake & Output 10/22/24 10/23/24 10/24/24 10/25/24 23:59 23:59 23:59 23:59 Intake Total 1702 835 Output Total 2325 Balance -623 835 Meds/Results Medications: Active Medications Generic Name Dose Route Start Last Admin Trade Name Freq PRN Reason Stop Dose Admin Acetaminophen 650 mg 10/23/24 14:00 Acetaminophen 325 Mg Tablet PO Q4H PRN Mild Pain (1-3) or Fever Hydrocodone Bitart/Acetaminophen 1 tab 10/24/24 14:13 10/24/24 20:45 Hydrocodone/Acetaminophen (*Crx) 7.5-325 Mg Tablet PO 1 tab QID PRN Administration PAIN RATED 7-10 Amlodipine Besylate 5 mg 10/25/24 09:00 10/25/24 08:50 Amlodipine Besylate 5 Mg Tablet PO 5 mg DAILY DEMETRIO Administration Apixaban 5 mg 10/24/24 21:00 10/25/24 08:50 Apixaban 5 Mg Tablet PO 5 mg Q12H DEMETRIO Administration Atorvastatin Calcium 20 mg 10/24/24 21:00 10/24/24 20:44 Atorvastatin 20 Mg Tablet PO 20 mg HS DEMETRIO Administration Clopidogrel Bisulfate 75 mg 10/24/24 09:00 10/25/24 08:50 Clopidogrel Bisulfate 75 Mg Tablet PO 75 mg DAILY DEMETRIO Administration Dextrose 12.5 gm 10/23/24 15:36 Dextrose 50% 25 Gm/50 Ml Syringe IV PUSH PRN PRN Hypoglycemia Protocol Diltiazem HCl 180 mg 10/23/24 21:00 10/24/24 20:45 Diltiazem Hcl Cd 180 Mg Cap.24hr PO 180 mg Q24H DEMETRIO Administration Glucagon 1 mg 10/23/24 15:36 Glucagon For Inj 1 Mg Vial IM PRN PRN Hypoglycemia Protocol Glucose 15 gm 10/23/24 15:36 Glucose Oral Gel 15 Gm Of Glucse In 37.5 Gm Tube PO PRN PRN Hypoglycemia Protocol Hydralazine HCl 10 mg 10/23/24 15:39 10/24/24 21:11 Hydralazine Hcl 20 Mg/Ml Vial IV PUSH 10 mg Q8H PRN Administration Blood Pressure - High Dextrose 1,000 mls @ 100 mls/hr 10/23/24 15:36 Dextrose 5% 1,000 Ml IVPB PRN PRN Hypoglycemia Protocol Dextrose/Sodium Chloride 1,000 mls @ 40 mls/hr 10/23/24 21:20 10/24/24 20:46 Dextrose 5% Sodium Chloride 0.9% IV CONT 40 mls/hr On Hold: 10/25/24 08:49 .Q24H DEMETRIO Administration Albumin Human 50 mls @ 999 mls/hr 10/23/24 23:47 Albutein IVPB 11/22/24 23:46 Q10M PRN HYPOTENSION Insulin Aspart 1 - 2 units 10/23/24 21:00 10/23/24 21:28 Insulin Aspart (*Bkc) 100 Units/Ml SUB-Q Not Given On Hold: 10/23/24 21:05 [facility] Protocol Insulin Aspart 2 - 5 units 10/24/24 00:00 10/25/24 11:43 Insulin Aspart (*Bkc) 100 Units/Ml SUB-Q Not Given Q6HR [facility] Protocol Insulin Glargine 15 units 10/23/24 21:20 10/24/24 21:12 Insulin Glargine (*Bkc) 100 Units/Ml SUB-Q 15 units HS DEMETRIO Administration Levothyroxine Sodium 100 mcg 10/24/24 06:30 10/25/24 06:17 Levothyroxine Sodium 100 Mcg Tablet PO 100 mcg DAILY@0630 DEMETRIO Administration Levothyroxine Sodium 75 mcg 10/24/24 06:30 10/25/24 06:17 Levothyroxine Sodium 75 Mcg Tablet PO 75 mcg DAILY@0630 DEMETRIO Administration Metoclopramide HCl 10 mg 10/25/24 16:30 Metoclopramide Hcl Inj 10 Mg/2 Ml Vial IV PUSH AC DEMETRIO Montelukast Sodium 10 mg 10/24/24 14:20 10/25/24 08:50 Montelukast Sodium 10 Mg Tablet PO 10 mg DAILY DEMETRIO Administration Ondansetron HCl 4 mg 10/25/24 11:08 Ondansetron Inj 4 Mg/2 Ml Vial IV PUSH Q6H PRN Nausea And Vomiting Pantoprazole Sodium 40 mg 10/24/24 09:00 10/25/24 08:50 Pantoprazole Sodium Iv 40 Mg Vial IV PUSH 40 mg QAM DEMETRIO Administration Paroxetine HCl 40 mg 10/24/24 09:00 10/25/24 08:50 Paroxetine 20 Mg Tablet PO 40 mg DAILY DEMETRIO Administration Perflutren Lipid Microsphere 0 ml 10/25/24 11:06 Perflutren Lipid Microspheres 1.5 Ml Vial Diluted To 10 Ml Total Volume IV PUSH 10/28/24 11:06 ONCE PRN adequate visualization Protocol Sevelamer Carbonate 2,400 mg 10/25/24 17:00 Sevelamer Carbonate 800 Mg Tablet BY MOUTH BIDWM DEMETRIO Umeclidinium/Vilanterol 1 puff 10/23/24 21:00 10/24/24 08:04 Umeclidinium/Vilanterol 62.5-25 Mcg Ellipta INHALATION 1 puff Q24H DEMETRIO Administration Vitamin B Complex/Folic Acid 1 cap 10/25/24 09:00 10/25/24 08:50 Vitamin B Cmplx/Vit C/Folic Ac 1 Capsule PO 1 cap QAM DEMETRIO Administration Radiology Results: ITS Impressions Abdomen/Pelvis CT 10/23/24 11:57 IMPRESSION: 1. No acute intra-abdominal/pelvic process. 2. Small bilateral pleural effusions with consolidation in the basilar right lower lobe and favor atelectasis over pneumonia. 3. Severe bilateral renal atrophy with stones in the bilateral renal pelvises sees without hydronephrosis. Chest X-Ray 10/24/24 08:00 IMPRESSION: 1. Likely congestive heart failure with cardiomegaly, mild pulmonary edema and small bilateral pleural effusions. 2. Additional linear and patchy airspace opacities in the left mid and bilateral lower lung zones which could represent atelectasis or pneumonia. Labs Labs: Laboratory Results - last 24 hr 10/24/24 10/25/24 10/25/24 17:26 00:33 05:34 WBC RBC Hgb Hct MCV MCH MCHC RDW Plt Count MPV Immature Gran % (Auto) Neut % (Auto) Lymph % (Auto) [place] % (Auto) Eos % (Auto) Baso % (Auto) Lymph # (Auto) [place] # (Auto) Eos # (Auto) Baso # (Auto) Abs Immat Gran (auto) Absolute Neuts (auto) Absolute Nucleated RBC Nucleated RBC % Sodium Potassium Chloride Carbon Dioxide Anion Gap BUN Creatinine Estim Creat Clear Calc Estimated GFR Glucose POC Capillary Glucose 148 H 151 H 129 H Calcium Phosphorus Total Bilirubin AST ALT Alkaline Phosphatase Total Protein Albumin Procalcitonin 10/25/24 10/25/24 10/25/24 06:08 06:08 06:09 WBC 8.6 RBC 3.62 L Hgb 10.2 L Hct 31.9 L MCV 88.1 MCH 28.2 MCHC 32.0 RDW 14.2 Plt Count 246 MPV 9.3 Immature Gran % (Auto) 0.2 Neut % (Auto) 78.5 H Lymph % (Auto) 12.2 L [place] % (Auto) 8.2 Eos % (Auto) 0.2 Baso % (Auto) 0.7 Lymph # (Auto) 1.05 [place] # (Auto) 0.7 H Eos # (Auto) 0.0 Baso # (Auto) 0.1 Abs Immat Gran (auto) 0.02 Absolute Neuts (auto) 6.8 H Absolute Nucleated RBC 0.000 Nucleated RBC % 0.0 Sodium 127 L Potassium 3.6 Chloride 94 L Carbon Dioxide 26 Anion Gap 7 BUN 17 Creatinine 4.44 H Estim Creat Clear Calc 13 Estimated GFR 10 L Glucose 124 H POC Capillary Glucose Calcium 9.7 Phosphorus 4.3 Cancelled Total Bilirubin 0.5 AST 17 ALT 12 Alkaline Phosphatase 57 Total Protein 5.9 L Albumin 3.3 L Procalcitonin 0.3 10/25/24 11:37 WBC RBC Hgb Hct MCV MCH MCHC RDW Plt Count MPV Immature Gran % (Auto) Neut % (Auto) Lymph % (Auto) [place] % (Auto) Eos % (Auto) Baso % (Auto) Lymph # (Auto) [place] # (Auto) Eos # (Auto) Baso # (Auto) Abs Immat Gran (auto) Absolute Neuts (auto) Absolute Nucleated RBC Nucleated RBC % Sodium Potassium Chloride Carbon Dioxide Anion Gap BUN Creatinine Estim Creat Clear Calc Estimated GFR Glucose POC Capillary Glucose 128 H Calcium Phosphorus Total Bilirubin AST ALT Alkaline Phosphatase Total Protein Albumin Procalcitonin
[2024-10-25] MEDS: SEVELAMER CARBONATE 800 MG TABLET 2400 MG BY MOUTH (16:18)
[2024-10-25 20:03] VITALS: BP 151/61; PULSE 76; RESP 18; TEMP 36.6; O2SAT 94
[2024-10-25] MEDS: UMECLIDINIUM/VILANTEROL 62.5-25 MCG ELLIPTA 1 PUFF INHALATION (21:00)
[2024-10-25] MEDS: ATORVASTATIN 20 MG TABLET PO (21:48)
[2024-10-25] MEDS: dilTIAZem HCL CD 180 MG CAP.24HR PO (21:49)
[2024-10-25] MEDS: INSULIN GLARGINE (*BKC) 100 UNITS/ML 15 UNITS SUB-Q (21:49)
[2024-10-25 23:05] VITALS: O2SAT 94
[2024-10-26] VITALS (18 sets, daily range): BP systolic 153–188; BP diastolic 62–83; PULSE 66–74; RESP 16–18; TEMP 36.5–37; O2SAT 99
[2024-10-26] MEDS: LEVOTHYROXINE SODIUM 75 MCG TABLET PO (05:45)
[2024-10-26] MEDS: METOCLOPRAMIDE HCL INJ 10 MG/2 ML VIAL IV PUSH ×2 (05:45→11:10)
[2024-10-26] MEDS: LEVOTHYROXINE SODIUM 100 MCG TABLET PO (05:45)
[2024-10-26 07:06] LABS: Alanine Aminotransferase 12 U/L (6-35); Albumin Level 3.3 g/dL (3.5-5.1); Alkaline Phosphatase 55 U/L (38-126); Anion Gap 7 mmol/L (4-12); Aspartate Amino Transferase 19 U/L (14-36); Bilirubin,Total 0.5 mg/dL (0.2-1.3); Blood Urea Nitrogen 22 mg/dL (7-17); Calcium 9.6 mg/dL (8.4-10.2); Carbon Dioxide 25 mmol/L (22-30); Chloride 91 mmol/L (98-107); Estimated CRCL calculation 10 ml/min; Estimated Glomerular Filt Rate 8; Glucose 144 mg/dL (65-110); Potassium 3.8 mmol/L (3.4-5.0); Sodium 123 mmol/L (137-145); Total Protein 5.8 g/dL (6.3-8.2)
--- NOTE | 2024-10-26 07:45 | P.PNIM_ITS ---
Progress Note: A&P Assessment and Plan (1) Nausea and vomiting: Qualifiers: Vomiting type: unspecified Qualified Code(s): R11.2 - Nausea with vomiting, unspecified Code(s): R11.2 - Nausea with vomiting, unspecified Status: Acute Assessment and Plan: - likely secondary to gastroparesis - patient was prescribed intranasal Reglan, but unable to afford - held IV fluids due to ESRD and concern for edema on CXR -symptoms improved with scheduled IV Reglan. Will transition to p.o. Reglan with meals. - GI consulted - started PRN Phenergan, consider domperidone, may need to consider G-POEM (2) Gastroparesis: Code(s): K31.84 - Gastroparesis Status: Acute Assessment and Plan: - suspected in setting of T2DM, but has yet to have a gastric emptying study - management as above (3) Hypertension: Code(s): I10 - Essential (primary) hypertension Status: Chronic Assessment and Plan: -BP 153/63 - continue diltiazem. Nephrology stopped amlodipine and started lisinopril. (4) CHF (congestive heart failure): Code(s): I50.9 - Heart failure, unspecified Status: Acute Assessment and Plan: - reports prior history, but no echo to review - CXR with concern for edema, but on RA with no dyspnea, lungs clear on exam - echo with EF 55%, abnormal diastolic function, moderate aortic stenosis - IV fluids stopped -volume management with dialysis (5) Afib: Code(s): I48.91 - Unspecified atrial fibrillation Status: Acute Assessment and Plan: - continue Catalina Jama (6) Diabetes mellitus: Code(s): E11.9 - Type 2 diabetes mellitus without complications Status: Chronic Assessment and Plan: - continue Lantus 15u and low dose SSI - monitor POCT glucose - hypoglycemia management protocol (7) Hyponatremia: Code(s): E87.1 - Hypo-osmolality and hyponatremia Status: Acute Assessment and Plan: - Na 127-->123 - holding IV fluids due to concerns for hypervolemia -suspect combination of volume overload and poor p.o. intake. - volume management with dialysis -hopefully will improve tomorrow after dialysis and improvement in p.o. intake. (8) ESRD (end stage renal disease) on dialysis: Code(s): N18.6 - End stage renal disease; Z99.2 - Dependence on renal dialysis Status: Acute Assessment and Plan: - on dialysis [facility] - nephrology following (9) COPD (chronic obstructive pulmonary disease): Qualifiers: COPD type: COPD with acute exacerbation Qualified Code(s): J44.1 - Chronic obstructive pulmonary disease with (acute) exacerbation Code(s): J44.9 - Chronic obstructive pulmonary disease, unspecified Status: Acute Assessment and Plan: - CXR with likely mild pulmonary edema and small bilateral pleural effusions, linear and patchy opacities in the left mid and bilateral lower lung zones - atelectasis vs. pneumonia - low concern for pneumonia given afebrile, no leukocytosis without cough. Monitor off antibiotics for now. (10) Chronic hypoxic respiratory failure: Code(s): J96.11 - Chronic respiratory failure with hypoxia Status: Acute Assessment and Plan: - on 2L NC at night at baseline Subjective Date/time seen: 10/26/24 07:45 Interval history: Patient seen and examined at bedside. Review of Systems Review of Systems: 12 systems were reviewed and are negativ e except for as per HPI. Exam Narrative: General: NAD, obese Eyes: EOMI ENT: neck supple Cardiovascular: Regular rate and rhythm Respiratory: Clear to auscultation, respirations even and unlabored on RA Gastrointestinal: Soft, mild epigastric tenderness with palpation Genitourinary: no suprapubic tenderness Musculoskeletal: No edema Skin: warm, dry Neuro: Alert. Psych: Mood appropriate Objective Data Vital Signs Vital Signs: Vital Signs - 24 hr 10/25/24 08:00 10/25/24 14:00 10/25/24 20:03 Temperature 97.5 F L 97.9 F Pulse Rate 77 76 Respiratory Rate 17 18 Blood Pressure 166/69 H 151/61 H Pulse Oximetry 100 94 Oxygen Delivery Room Air Oxygen Flow Rate 10/25/24 22:06 10/25/24 23:05 10/26/24 05:23 Temperature 97.7 F Pulse Rate 74 Respiratory Rate 16 Blood Pressure 153/63 H Pulse Oximetry 94 99 Oxygen Delivery Room Air Nasal Cannula Oxygen Flow Rate 2 Intake/Output Intake/Output: Intake & Output 10/23/24 10/24/24 10/25/24 10/26/24 23:59 23:59 23:59 23:59 Intake Total 1702 1195 200 Output Total 2325 Balance -623 1195 200 Meds/Results Medications: Active Medications Generic Name Dose Route Start Last Admin Trade Name Freq PRN Reason Stop Dose Admin Acetaminophen 650 mg 10/23/24 14:00 Acetaminophen 325 Mg Tablet PO Q4H PRN Mild Pain (1-3) or Fever Hydrocodone Bitart/Acetaminophen 1 tab 10/24/24 14:13 10/24/24 20:45 Hydrocodone/Acetaminophen (*Crx) 7.5-325 Mg Tablet PO 1 tab QID PRN Administration PAIN RATED 7-10 Apixaban 5 mg 10/24/24 21:00 10/25/24 21:48 Apixaban 5 Mg Tablet PO 5 mg Q12H DEMETRIO Administration Atorvastatin Calcium 20 mg 10/24/24 21:00 10/25/24 21:48 Atorvastatin 20 Mg Tablet PO 20 mg HS DEMETRIO Administration Clopidogrel Bisulfate 75 mg 10/24/24 09:00 10/25/24 08:50 Clopidogrel Bisulfate 75 Mg Tablet PO 75 mg DAILY DEMETRIO Administration Dextrose 12.5 gm 10/23/24 15:36 Dextrose 50% 25 Gm/50 Ml Syringe IV PUSH PRN PRN Hypoglycemia Protocol Diltiazem HCl 180 mg 10/23/24 21:00 10/25/24 21:49 Diltiazem Hcl Cd 180 Mg Cap.24hr PO 180 mg Q24H DEMETRIO Administration Epoetin Jos-epbx 10,000 units 10/26/24 18:08 Epoetin Jos-Epbx 10,000 Units/Ml Vial IV PUSH 10/26/24 18:09 ONCE ONE Glucagon 1 mg 10/23/24 15:36 Glucagon For Inj 1 Mg Vial IM PRN PRN Hypoglycemia Protocol Glucose 15 gm 10/23/24 15:36 Glucose Oral Gel 15 Gm Of Glucse In 37.5 Gm Tube PO PRN PRN Hypoglycemia Protocol Hydralazine HCl 10 mg 10/23/24 15:39 10/24/24 21:11 Hydralazine Hcl 20 Mg/Ml Vial IV PUSH 10 mg Q8H PRN Administration Blood Pressure - High Dextrose 1,000 mls @ 100 mls/hr 10/23/24 15:36 Dextrose 5% 1,000 Ml IVPB PRN PRN Hypoglycemia Protocol Dextrose/Sodium Chloride 1,000 mls @ 40 mls/hr 10/23/24 21:20 10/24/24 20:46 Dextrose 5% Sodium Chloride 0.9% IV CONT 40 mls/hr On Hold: 10/25/24 08:49 .Q24H DEMETRIO Administration Albumin Human 50 mls @ 999 mls/hr 10/23/24 23:47 Albutein IVPB 11/22/24 23:46 Q10M PRN HYPOTENSION Insulin Aspart 1 - 2 units 10/23/24 21:00 10/23/24 21:28 Insulin Aspart (*Bkc) 100 Units/Ml SUB-Q Not Given On Hold: 10/23/24 21:05 HS [facility] Protocol Insulin Aspart 2 - 5 units 10/24/24 00:00 10/26/24 05:54 Insulin Aspart (*Bkc) 100 Units/Ml SUB-Q Not Given Q6HR [facility] Protocol Insulin Glargine 15 units 10/23/24 21:20 10/25/24 21:49 Insulin Glargine (*Bkc) 100 Units/Ml SUB-Q 15 units HS DEMETRIO Administration Levothyroxine Sodium 100 mcg 10/24/24 06:30 10/26/24 05:45 Levothyroxine Sodium 100 Mcg Tablet PO 100 mcg DAILY@0630 DEMETRIO Administration Levothyroxine Sodium 75 mcg 10/24/24 06:30 10/26/24 05:45 Levothyroxine Sodium 75 Mcg Tablet PO 75 mcg DAILY@0630 DEMETRIO Administration Lisinopril 5 mg 10/26/24 09:00 Lisinopril 5 Mg Tablet PO QAM DEMETRIO Metoclopramide HCl 10 mg 10/25/24 16:30 10/26/24 05:45 Metoclopramide Hcl Inj 10 Mg/2 Ml Vial IV PUSH 10 mg AC DEMETRIO Administration Montelukast Sodium 10 mg 10/24/24 14:20 10/25/24 08:50 Montelukast Sodium 10 Mg Tablet PO 10 mg DAILY DEMETRIO Administration Ondansetron HCl 4 mg 10/25/24 11:08 Ondansetron Inj 4 Mg/2 Ml Vial IV PUSH Q6H PRN Nausea And Vomiting Pantoprazole Sodium 40 mg 10/24/24 09:00 10/25/24 08:50 Pantoprazole Sodium Iv 40 Mg Vial IV PUSH 40 mg QAM DEMETRIO Administration Paroxetine HCl 40 mg 10/24/24 09:00 10/25/24 08:50 Paroxetine 20 Mg Tablet PO 40 mg DAILY DEMETRIO Administration Perflutren Lipid Microsphere 0 ml 10/25/24 11:06 Perflutren Lipid Microspheres 1.5 Ml Vial Diluted To 10 Ml Total Volume IV PUSH 10/28/24 11:06 ONCE PRN adequate visualization Protocol Promethazine HCl 12.5 mg 10/25/24 15:52 Promethazine Hcl 12.5 Mg Tablet PO Q8H PRN Nausea And Vomiting Sevelamer Carbonate 2,400 mg 10/25/24 17:00 10/25/24 16:18 Sevelamer Carbonate 800 Mg Tablet BY MOUTH 2,400 mg BIDWM DEMETRIO Administration Umeclidinium/Vilanterol 1 puff 10/23/24 21:00 10/24/24 08:04 Umeclidinium/Vilanterol 62.5-25 Mcg Ellipta INHALATION 1 puff Q24H DEMETRIO Administration Vitamin B Complex/Folic Acid 1 cap 10/25/24 09:00 10/25/24 08:50 Vitamin B Cmplx/Vit C/Folic Ac 1 Capsule PO 1 cap QAM DEMETRIO Administration Radiology Results: ITS Impressions Abdomen/Pelvis CT 10/23/24 11:57 IMPRESSION: 1. No acute intra-abdominal/pelvic process. 2. Small bilateral pleural effusions with consolidation in the basilar right lower lobe and favor atelectasis over pneumonia. 3. Severe bilateral renal atrophy with stones in the bilateral renal pelvises sees without hydronephrosis. Chest X-Ray 10/24/24 08:00 IMPRESSION: 1. Likely congestive heart failure with cardiomegaly, mild pulmonary edema and small bilateral pleural effusions. 2. Additional linear and patchy airspace opacities in the left mid and bilateral lower lung zones which could represent atelectasis or pneumonia. Labs Labs: Laboratory Results - last 24 hr 10/25/24 10/25/24 10/25/24 06:09 11:37 17:14 Sodium Potassium Chloride Carbon Dioxide Anion Gap BUN Creatinine Estim Creat Clear Calc Estimated GFR Glucose POC Capillary Glucose 128 H 114 H Calcium Total Bilirubin AST ALT Alkaline Phosphatase Total Protein Albumin Procalcitonin 0.3 10/25/24 10/26/24 10/26/24 21:53 00:17 03:17 Sodium Potassium Chloride Carbon Dioxide Anion Gap BUN Creatinine Estim Creat Clear Calc Estimated GFR Glucose POC Capillary Glucose 93 81 62 L Calcium Total Bilirubin AST ALT Alkaline Phosphatase Total Protein Albumin Procalcitonin 10/26/24 10/26/24 10/26/24 03:39 05:26 06:21 Sodium 123 L Potassium 3.8 Chloride 91 L Carbon Dioxide 25 Anion Gap 7 BUN 22 H Creatinine 5.67 H Estim Creat Clear Calc 10 Estimated GFR 8 L Glucose 144 H POC Capillary Glucose 69 122 H Calcium 9.6 Total Bilirubin 0.5 AST 19 ALT 12 Alkaline Phosphatase 55 Total Protein 5.8 L Albumin 3.3 L Procalcitonin Quality VTE Prophylaxis VTE prophylaxis: mechanical ordered
[2024-10-26] MEDS: APIXABAN 5 MG TABLET PO ×2 (08:30→20:50)
[2024-10-26] MEDS: MONTELUKAST SODIUM 10 MG TABLET PO (08:30)
[2024-10-26] MEDS: SEVELAMER CARBONATE 800 MG TABLET 2400 MG BY MOUTH ×2 (08:30→17:52)
[2024-10-26] MEDS: CLOPIDOGREL BISULFATE 75 MG TABLET PO (08:30)
[2024-10-26] MEDS: PANTOPRAZOLE SODIUM IV 40 MG VIAL IV PUSH (08:30)
[2024-10-26] MEDS: VITAMIN B CMPLX/VIT C/FOLIC AC 1 CAPSULE 1 CAP PO (08:30)
[2024-10-26] MEDS: HYDROcodone/acetaminophen (*CRX) 7.5-325 MG TABLET 1 TAB PO ×2 (08:39→13:39)
--- NOTE | 2024-10-26 09:13 | PCNFU ---
Nutrition Follow-Up Complete: Inadequate oral intake related to nausea, vomiting as evidenced by pt report Diet advancement - Goal is met Improved PO intake when diet advanced - Slow progress with goal. Continue with same goal Goal: Pt current nutrition is Low fiber, diabetic consistent carb, renal diet. Nepro shakes BID (420 kcal, 19 g protein). Nutrition recommendation: No new recommendations. Continue current nutrition care plan and orders. Last recorded weight is 86.5 kg. Bowel Motility: +1 BM 9/ Labs Reviewed: Alb 3.3, Na 123, BUN 22, Cre 5.67, Glu 144 Meds Noted: Insulin, Eliquid, Reglan Skin:No skin issues Additional Notes: Diet advanced, nausea and vomiting improving with Reglan. Intakes are a little better. Continue current plan. Agree with current orders. Monitoring diet orders, weights, labs, intakes, plan of care Follow up in 3 days
[2024-10-26] MEDS: ONDANSETRON INJ 4 MG/2 ML VIAL IV PUSH (12:45)
--- NOTE | 2024-10-26 14:28 | P.PNNP_ITS ---
Progress Note: A&P Assessment and Plan (1) End stage renal disease: Code(s): N18.6 - End stage renal disease Status: Chronic Assessment and Plan: * HD todat * continue Tuesday/Tuesday/Tuesday dialysis schedule while hospitalized * follow trend of electrolytes, volume status and clearance * outpatient dialysis unit = [facility] * primary laborer/grade check = Dr. Mathias (2) Nausea and vomiting: Qualifiers: Vomiting type: unspecified Qualified Code(s): R11.2 - Nausea with vomiting, unspecified Code(s): R11.2 - Nausea with vomiting, unspecified Status: Acute Assessment and Plan: * nausea better * no vomiting * suspect secondary to known history of gastroparesis * unable to afford nasal reglan for outpatient use * IV antiemetics while hospitalized * GI following with recommendations noted * admission CT of A/P noted * continue supportive therapy (3) Pneumonia: Qualifiers: Laterality: bilateral Lung location: lower lobe of lung Pneumonia type: due to unspecified organism Qualified Code(s): J18.9 - Pneumonia, unspecified organism Code(s): J18.9 - Pneumonia, unspecified organism Status: Acute Assessment and Plan: * as suggested by admission imaging * follow culture data * complicated by #4 * on antibiotics (4) Chronic hypoxic respiratory failure: Code(s): J96.11 - Chronic respiratory failure with hypoxia Status: Acute Assessment and Plan: * follows with Pulmonary as an outpatient * presumably due to COPD * on 2L oxygen by NC at night and PRN during the day (5) Hyponatremia: Code(s): E87.1 - Hypo-osmolality and hyponatremia Status: Acute Assessment and Plan: * chronic issue * probably related due to kidney disease/ESRD, lung disease (COPD/VIJAY), chronic nausea, and possibly increased free water intake * pneumonia may be playing a role as well(?) * should correct to some degree with dialysis * follow trend (6) Anemia: Code(s): D64.9 - Anemia, unspecified Status: Chronic Assessment and Plan: * due to ESRD * Epogen with HD * follow trend of H/H (7) Hypertension: Code(s): I10 - Essential (primary) hypertension Status: Chronic Assessment and Plan: * elevated on admission/currently * fluid removal with HD may help to some degree * resume home BP medications * not sure why on both amlodipine AND diltiazem... * will d/c amlodipine in favor of lisinopril * titrate lisinopril as tolerated * follow trend of hemodynamics (8) Diabetes mellitus: Code(s): E11.9 - Type 2 diabetes mellitus without complications Status: Chronic Assessment and Plan: * follow accu-cheks * glycemic control per hospitalist Will continue to follow. L Subjective Date/time seen: 10/26/24 14:28 Interval history: Follow-up for end stage renal disease on hemodialysis. Tolerating dialysis treatment at the time of my visit (seen on HD at 2:20pm); reports improvement in nausea and tolerating oral intake without any issues or problems; no apparent distress voiced when seen; no other acute complaints voiced. Exam 2 Narrative: General: WD/WN female in NAD Heart: normal S1 and S2; no rub Lungs: coarse breath sounds; decreased at bases Abdomen: soft, nontender, nondistended, positive bowel sounds Extremities: no cyanosis or clubbing; trace edema Skin: no rash Objective Data Vital Signs Vital Signs: Vital Signs Temp Pulse Resp BP Pulse Ox O2 Del Method O2 Flow Rate 10/26/24 14:15 69 163/71 H 10/26/24 13:59 68 170/72 H 10/26/24 13:50 98.4 F 71 18 161/76 H 10/26/24 05:23 97.7 F 74 16 153/63 H 99 10/25/24 23:05 94 Nasal Cannula 2 10/25/24 22:06 Room Air 10/25/24 20:03 97.9 F 76 18 151/61 H 94 Intake/Output Intake/Output: Intake & Output 10/23/24 10/24/24 10/25/24 10/26/24 23:59 23:59 23:59 23:59 Intake Total 1702 1195 780 Output Total 2323 9888 Balance -623 1195 -8562 Meds/Results Medications: Active Medications Generic Name Dose Route Start Last Admin Trade Name Freq PRN Reason Stop Dose Admin Acetaminophen 650 mg 10/23/24 14:00 Acetaminophen 325 Mg Tablet PO Q4H PRN Mild Pain (1-3) or Fever Hydrocodone Bitart/Acetaminophen 1 tab 10/24/24 14:13 10/26/24 13:39 Hydrocodone/Acetaminophen (*Crx) 7.5-325 Mg Tablet PO 1 tab QID PRN Administration PAIN RATED 7-10 Apixaban 5 mg 10/24/24 21:00 10/26/24 08:30 Apixaban 5 Mg Tablet PO 5 mg Q12H DEMETRIO Administration Atorvastatin Calcium 20 mg 10/24/24 21:00 10/25/24 21:48 Atorvastatin 20 Mg Tablet PO 20 mg HS DEMETRIO Administration Clopidogrel Bisulfate 75 mg 10/24/24 09:00 10/26/24 08:30 Clopidogrel Bisulfate 75 Mg Tablet PO 75 mg DAILY DEMETRIO Administration Dextrose 12.5 gm 10/23/24 15:36 Dextrose 50% 25 Gm/50 Ml Syringe IV PUSH PRN PRN Hypoglycemia Protocol Diltiazem HCl 180 mg 10/23/24 21:00 10/25/24 21:49 Diltiazem Hcl Cd 180 Mg Cap.24hr PO 180 mg Q24H DEMETRIO Administration Glucagon 1 mg 10/23/24 15:36 Glucagon For Inj 1 Mg Vial IM PRN PRN Hypoglycemia Protocol Glucose 15 gm 10/23/24 15:36 Glucose Oral Gel 15 Gm Of Glucse In 37.5 Gm Tube PO PRN PRN Hypoglycemia Protocol Hydralazine HCl 10 mg 10/23/24 15:39 10/24/24 21:11 Hydralazine Hcl 20 Mg/Ml Vial IV PUSH 10 mg Q8H PRN Administration Blood Pressure - High Dextrose 1,000 mls @ 100 mls/hr 10/23/24 15:36 Dextrose 5% 1,000 Ml IVPB PRN PRN Hypoglycemia Protocol Dextrose/Sodium Chloride 1,000 mls @ 40 mls/hr 10/23/24 21:20 10/24/24 20:46 Dextrose 5% Sodium Chloride 0.9% IV CONT 40 mls/hr On Hold: 10/25/24 08:49 .Q24H DEMETRIO Administration Albumin Human 50 mls @ 999 mls/hr 10/23/24 23:47 Albutein IVPB 11/22/24 23:46 Q10M PRN HYPOTENSION Insulin Aspart 1 - 2 units 10/23/24 21:00 10/23/24 21:28 Insulin Aspart (*Bkc) 100 Units/Ml SUB-Q Not Given On Hold: 10/23/24 21:05 HS DEMETRIO Protocol Insulin Aspart 2 - 5 units 10/24/24 00:00 10/26/24 11:47 Insulin Aspart (*Bkc) 100 Units/Ml SUB-Q Not Given Q6HR DEMETRIO Protocol Insulin Glargine 15 units 10/23/24 21:20 10/25/24 21:49 Insulin Glargine (*Bkc) 100 Units/Ml SUB-Q 15 units HS DEMETRIO Administration Levothyroxine Sodium 100 mcg 10/24/24 06:30 10/26/24 05:45 Levothyroxine Sodium 100 Mcg Tablet PO 100 mcg DAILY@30 DEMETRIO Administration Levothyroxine Sodium 75 mcg 10/24/24 06:30 10/26/24 05:45 Levothyroxine Sodium 75 Mcg Tablet PO 75 mcg DAILY@0630 DEMETRIO Administration Lisinopril 5 mg 10/26/24 09:00 10/26/24 08:31 Lisinopril 5 Mg Tablet PO 5 mg QAM DEMETRIO Administration Metoclopramide HCl 10 mg 10/26/24 16:30 10/26/24 17:52 Metoclopramide Hcl 10 Mg Tablet PO 10 mg AC DEMETRIO Administration Montelukast Sodium 10 mg 10/24/24 14:20 10/26/24 08:30 Montelukast Sodium 10 Mg Tablet PO 10 mg DAILY DEMETRIO Administration Ondansetron HCl 4 mg 10/25/24 11:08 10/26/24 12:45 Ondansetron Inj 4 Mg/2 Ml Vial IV PUSH 4 mg Q6H PRN Administration Nausea And Vomiting Pantoprazole Sodium 40 mg 10/24/24 09:00 10/26/24 08:30 Pantoprazole Sodium Iv 40 Mg Vial IV PUSH 40 mg QAM DEMETRIO Administration Paroxetine HCl 40 mg 10/24/24 09:00 10/26/24 08:30 Paroxetine 20 Mg Tablet PO 40 mg DAILY DEMETRIO Administration Perflutren Lipid Microsphere 0 ml 10/25/24 11:06 Perflutren Lipid Microspheres 1.5 Ml Vial Diluted To 10 Ml Total Volume IV PUSH 10/28/24 11:06 ONCE PRN adequate visualization Protocol Promethazine HCl 12.5 mg 10/25/24 15:52 Promethazine Hcl 12.5 Mg Tablet PO Q8H PRN Nausea And Vomiting Sevelamer Carbonate 2,400 mg 10/25/24 17:00 10/26/24 17:52 Sevelamer Carbonate 800 Mg Tablet BY MOUTH 2,400 mg BIDWM DEMETRIO Administration Umeclidinium/Vilanterol 1 puff 10/23/24 21:00 10/25/24 21:00 Umeclidinium/Vilanterol 62.5-25 Mcg Ellipta INHALATION 1 puff Q24H DEMETRIO Administration Vitamin B Complex/Folic Acid 1 cap 10/25/24 09:00 10/26/24 08:30 Vitamin B Cmplx/Vit C/Folic Ac 1 Capsule PO 1 cap QAM DEMETRIO Administration Radiology Results: ITS Impressions Abdomen/Pelvis CT 10/23/24 11:57 IMPRESSION: 1. No acute intra-abdominal/pelvic process. 2. Small bilateral pleural effusions with consolidation in the basilar right lower lobe and favor atelectasis over pneumonia. 3. Severe bilateral renal atrophy with stones in the bilateral renal pelvises sees without hydronephrosis. Chest X-Ray 10/24/24 08:00 IMPRESSION: 1. Likely congestive heart failure with cardiomegaly, mild pulmonary edema and small bilateral pleural effusions. 2. Additional linear and patchy airspace opacities in the left mid and bilateral lower lung zones which could represent atelectasis or pneumonia. Labs Labs: Laboratory Tests 10/25/24 06:08 10/26/24 06:21 Calcium 9.6 Total Bilirubin 0.5 AST 19 ALT 12 Alkaline Phosphatase 55 Total Protein 5.8 L Albumin 3.3 L
[2024-10-26] MEDS: EPOETIN ALFA-EPBX 10,000 UNITS/ML VIAL 10000 UNITS IV PUSH (16:32)
--- NOTE | 2024-10-26 16:50 | WPDGIPROGNO ---
Progress Note: A&P Assessment and Plan (1) Nausea and vomiting: Qualifiers: Vomiting type: unspecified Qualified Code(s): R11.2 - Nausea with vomiting, unspecified Code(s): R11.2 - Nausea with vomiting, unspecified Status: Acute Assessment and Plan: better with medical management, also eat small meals at time she can not afford intranasal metoclopramide hopefully home tomorrow if better (2) Gastroparesis: Code(s): K31.84 - Gastroparesis Status: Acute (3) Abdominal pain: Code(s): R10.9 - Unspecified abdominal pain Status: Acute (4) Diabetes mellitus: Code(s): E11.9 - Type 2 diabetes mellitus without complications Status: Chronic (5) ESRD (end stage renal disease) on dialysis: Code(s): N18.6 - End stage renal disease; Z99.2 - Dependence on renal dialysis Status: Acute Subjective Date/time seen: 10/26/24 16:50 Interval history: she is on dialysis now, overall better and eating more, hoping to go home tomorrow Review of Systems Review of Systems: All systems reviewed & are unremarkable except as noted in HPI and below Exam Const: General: comfortable and no acute distress Other: chronically ill appearing HENMT: Face/Nose/Sinus: Normal nares present Eyes: Sclera: sclerae normal Neck: Neck: supple Resp: Auscultation: clear to auscultation bilaterally Cardio: Rate: regular rate Rhythm: regular rhythm GI: Inspection: non-distended GI Palp: Yes Soft to palpation and No Tenderness to palpation present (GI) Auscultation: normal bowel sounds Skin: General skin exam: normal color Neuro: Speech: normal speech Motor exam (neuro): 5/5 motor strength present throughout Extrem: General: normal to inspection Psych: Mental Status: mental status grossly normal Objective Data Vital Signs Vital Signs: Vital Signs - 24 hr 10/25/24 20:03 10/25/24 22:06 10/25/24 23:05 Temperature 97.9 F Pulse Rate 76 Respiratory Rate 18 Blood Pressure 151/61 H Pulse Oximetry 94 94 Oxygen Delivery Room Air Nasal Cannula Oxygen Flow Rate 2 10/26/24 05:23 10/26/24 13:50 10/26/24 13:59 Temperature 97.7 F 98.4 F Pulse Rate 74 71 68 Respiratory Rate 16 18 Blood Pressure 153/63 H 161/76 H 170/72 H Pulse Oximetry 99 Oxygen Delivery Oxygen Flow Rate 10/26/24 14:15 10/26/24 14:30 10/26/24 14:45 Temperature Pulse Rate 69 69 71 Respiratory Rate Blood Pressure 163/71 H 159/65 H 166/74 H Pulse Oximetry Oxygen Delivery Oxygen Flow Rate 10/26/24 15:00 10/26/24 15:15 10/26/24 15:30 Temperature Pulse Rate 71 69 70 Respiratory Rate Blood Pressure 166/67 H 164/71 H 160/71 H Pulse Oximetry Oxygen Delivery Oxygen Flow Rate 10/26/24 15:45 10/26/24 16:00 Temperature Pulse Rate 70 68 Respiratory Rate Blood Pressure 174/75 H 161/62 H Pulse Oximetry Oxygen Delivery Oxygen Flow Rate Intake/Output Intake/Output: Intake & Output 10/23/24 10/24/24 10/25/24 10/26/24 23:59 23:59 23:59 23:59 Intake Total 1702 1195 480 Output Total 2325 Balance -623 1195 480 Meds/Results Medications: Active Medications Generic Name Dose Route Start Last Admin Trade Name Freq PRN Reason Stop Dose Admin Acetaminophen 650 mg 10/23/24 14:00 Acetaminophen 325 Mg Tablet PO Q4H PRN Mild Pain (1-3) or Fever Hydrocodone Bitart/Acetaminophen 1 tab 10/24/24 14:13 10/26/24 13:39 Hydrocodone/Acetaminophen (*Crx) 7.5-325 Mg Tablet PO 1 tab QID PRN Administration PAIN RATED 7-10 Apixaban 5 mg 10/24/24 21:00 10/26/24 08:30 Apixaban 5 Mg Tablet PO 5 mg Q12H DEMETRIO Administration Atorvastatin Calcium 20 mg 10/24/24 21:00 10/25/24 21:48 Atorvastatin 20 Mg Tablet PO 20 mg HS DEMETRIO Administration Clopidogrel Bisulfate 75 mg 10/24/24 09:00 10/26/24 08:30 Clopidogrel Bisulfate 75 Mg Tablet PO 75 mg DAILY DEMETRIO Administration Dextrose 12.5 gm 10/23/24 15:36 Dextrose 50% 25 Gm/50 Ml Syringe IV PUSH PRN PRN Hypoglycemia Protocol Diltiazem HCl 180 mg 10/23/24 21:00 10/25/24 21:49 Diltiazem Hcl Cd 180 Mg Cap.24hr PO 180 mg Q24H DEMETRIO Administration Epoetin Jos-epbx 10,000 units 10/26/24 18:08 Epoetin Jos-Epbx 10,000 Units/Ml Vial IV PUSH 10/26/24 18:09 ONCE ONE Glucagon 1 mg 10/23/24 15:36 Glucagon For Inj 1 Mg Vial IM PRN PRN Hypoglycemia Protocol Glucose 15 gm 10/23/24 15:36 Glucose Oral Gel 15 Gm Of Glucse In 37.5 Gm Tube PO PRN PRN Hypoglycemia Protocol Hydralazine HCl 10 mg 10/23/24 15:39 10/24/24 21:11 Hydralazine Hcl 20 Mg/Ml Vial IV PUSH 10 mg Q8H PRN Administration Blood Pressure - High Dextrose 1,000 mls @ 100 mls/hr 10/23/24 15:36 Dextrose 5% 1,000 Ml IVPB PRN PRN Hypoglycemia Protocol Dextrose/Sodium Chloride 1,000 mls @ 40 mls/hr 10/23/24 21:20 10/24/24 20:46 Dextrose 5% Sodium Chloride 0.9% IV CONT 40 mls/hr On Hold: 10/25/24 08:49 .Q24H DEMETRIO Administration Albumin Human 50 mls @ 999 mls/hr 10/23/24 23:47 Albutein IVPB 11/22/24 23:46 Q10M PRN HYPOTENSION Insulin Aspart 1 - 2 units 10/23/24 21:00 10/23/24 21:28 Insulin Aspart (*Bkc) 100 Units/Ml SUB-Q Not Given On Hold: 10/23/24 21:05 [facility] Protocol Insulin Aspart 2 - 5 units 10/24/24 00:00 10/26/24 11:47 Insulin Aspart (*Bkc) 100 Units/Ml SUB-Q Not Given Q6HR [facility] Protocol Insulin Glargine 15 units 10/23/24 21:20 10/25/24 21:49 Insulin Glargine (*Bkc) 100 Units/Ml SUB-Q 15 units HS DEMETRIO Administration Levothyroxine Sodium 100 mcg 10/24/24 06:30 10/26/24 05:45 Levothyroxine Sodium 100 Mcg Tablet PO 100 mcg DAILY@0630 DEMETRIO Administration Levothyroxine Sodium 75 mcg 10/24/24 06:30 10/26/24 05:45 Levothyroxine Sodium 75 Mcg Tablet PO 75 mcg DAILY@0630 DEMETRIO Administration Lisinopril 5 mg 10/26/24 09:00 10/26/24 08:31 Lisinopril 5 Mg Tablet PO 5 mg QAM DEMETRIO Administration Metoclopramide HCl 10 mg 10/26/24 16:30 Metoclopramide Hcl 10 Mg Tablet PO AC [facility] Montelukast Sodium 10 mg 10/24/24 14:20 10/26/24 08:30 Montelukast Sodium 10 Mg Tablet PO 10 mg DAILY DEMETRIO Administration Ondansetron HCl 4 mg 10/25/24 11:08 10/26/24 12:45 Ondansetron Inj 4 Mg/2 Ml Vial IV PUSH 4 mg Q6H PRN Administration Nausea And Vomiting Pantoprazole Sodium 40 mg 10/24/24 09:00 10/26/24 08:30 Pantoprazole Sodium Iv 40 Mg Vial IV PUSH 40 mg QAM DEMETRIO Administration Paroxetine HCl 40 mg 10/24/24 09:00 10/26/24 08:30 Paroxetine 20 Mg Tablet PO 40 mg DAILY DEMETRIO Administration Perflutren Lipid Microsphere 0 ml 10/25/24 11:06 Perflutren Lipid Microspheres 1.5 Ml Vial Diluted To 10 Ml Total Volume IV PUSH 10/28/24 11:06 ONCE PRN adequate visualization Protocol Promethazine HCl 12.5 mg 10/25/24 15:52 Promethazine Hcl 12.5 Mg Tablet PO Q8H PRN Nausea And Vomiting Sevelamer Carbonate 2,400 mg 10/25/24 17:00 10/26/24 08:30 Sevelamer Carbonate 800 Mg Tablet BY MOUTH 2,400 mg BIDWM DEMETRIO Administration Umeclidinium/Vilanterol 1 puff 10/23/24 21:00 10/25/24 21:00 Umeclidinium/Vilanterol 62.5-25 Mcg Ellipta INHALATION 1 puff Q24H DEMETRIO Administration Vitamin B Complex/Folic Acid 1 cap 10/25/24 09:00 10/26/24 08:30 Vitamin B Cmplx/Vit C/Folic Ac 1 Capsule PO 1 cap QAM DEMETRIO Administration Radiology Results: ITS Impressions Abdomen/Pelvis CT 10/23/24 11:57 IMPRESSION: 1. No acute intra-abdominal/pelvic process. 2. Small bilateral pleural effusions with consolidation in the basilar right lower lobe and favor atelectasis over pneumonia. 3. Severe bilateral renal atrophy with stones in the bilateral renal pelvises sees without hydronephrosis. Chest X-Ray 10/24/24 08:00 IMPRESSION: 1. Likely congestive heart failure with cardiomegaly, mild pulmonary edema and small bilateral pleural effusions. 2. Additional linear and patchy airspace opacities in the left mid and bilateral lower lung zones which could represent atelectasis or pneumonia. Labs Labs: Laboratory Results - last 24 hr 10/25/24 10/25/24 10/26/24 17:14 21:53 00:17 Sodium Potassium Chloride Carbon Dioxide Anion Gap BUN Creatinine Estim Creat Clear Calc Estimated GFR Glucose POC Capillary Glucose 114 H 93 81 Calcium Total Bilirubin AST ALT Alkaline Phosphatase Total Protein Albumin 10/26/24 10/26/24 10/26/24 03:17 03:39 05:26 Sodium Potassium Chloride Carbon Dioxide Anion Gap BUN Creatinine Estim Creat Clear Calc Estimated GFR Glucose POC Capillary Glucose 62 L 69 122 H Calcium Total Bilirubin AST ALT Alkaline Phosphatase Total Protein Albumin 10/26/24 10/26/24 06:21 11:35 Sodium 123 L Potassium 3.8 Chloride 91 L Carbon Dioxide 25 Anion Gap 7 BUN 22 H Creatinine 5.67 H Estim Creat Clear Calc 10 Estimated GFR 8 L Glucose 144 H POC Capillary Glucose 125 H Calcium 9.6 Total Bilirubin 0.5 AST 19 ALT 12 Alkaline Phosphatase 55 Total Protein 5.8 L Albumin 3.3 L
[2024-10-26] MEDS: METOCLOPRAMIDE HCL 10 MG TABLET PO (17:52)
[2024-10-26] MEDS: INSULIN GLARGINE (*BKC) 100 UNITS/ML 15 UNITS SUB-Q (20:49)
[2024-10-26] MEDS: dilTIAZem HCL CD 180 MG CAP.24HR PO (20:50)
[2024-10-26] MEDS: ATORVASTATIN 20 MG TABLET PO (20:50)
[2024-10-27 05:02] VITALS: BP 167/63; PULSE 75; RESP 16; TEMP 36.9; O2SAT 100
[2024-10-27] MEDS: METOCLOPRAMIDE HCL 10 MG TABLET PO ×2 (05:31→11:03)
[2024-10-27] MEDS: LEVOTHYROXINE SODIUM 100 MCG TABLET PO (05:31)
[2024-10-27] MEDS: LEVOTHYROXINE SODIUM 75 MCG TABLET PO (05:31)
[2024-10-27 06:19] LABS: Hematocrit 33.8 % (37.0-47.0); Hemoglobin 10.8 g/dL (12.0-15.0); Immature Granulocyte Percent A 0.4 % (0-0.5); Lymphocytes Absolute Auto 0.89 K/mm3 (0.9-3.2); Mean Corpuscular HGB Conc 32.0 g/dl (32-36); Mean Corpuscular Hemoglobin 28.4 pg (26-34); Mean Corpuscular Volume 88.9 fl (80-100); Nucleated Red Blood Cells Absolute Auto 0.000 K/mm3 (0.0-0.012); Nucleated Red Blood Cells Perc 0.0 % (0.0-0.2); Platelet Count Result 227 k/mm3 (150-375); Red Blood Count 3.80 M/mm3 (4.2-5.4); White Blood Count 7.3 K/mm3 (4.5-10.0)
[2024-10-27 06:40] LABS: Alanine Aminotransferase 11 U/L (6-35); Albumin Level 3.3 g/dL (3.5-5.1); Alkaline Phosphatase 55 U/L (38-126); Anion Gap 5 mmol/L (4-12); Aspartate Amino Transferase 20 U/L (14-36); Bilirubin,Total 0.4 mg/dL (0.2-1.3); Blood Urea Nitrogen 13 mg/dL (7-17); Calcium 9.3 mg/dL (8.4-10.2); Carbon Dioxide 28 mmol/L (22-30); Chloride 96 mmol/L (98-107); Estimated CRCL calculation 14 ml/min; Estimated Glomerular Filt Rate 11; Glucose 90 mg/dL (65-110); Potassium 3.7 mmol/L (3.4-5.0); Sodium 129 mmol/L (137-145); Total Protein 5.8 g/dL (6.3-8.2)
[2024-10-27] MEDS: ONDANSETRON INJ 4 MG/2 ML VIAL IV PUSH (06:56)
[2024-10-27] MEDS: VITAMIN B CMPLX/VIT C/FOLIC AC 1 CAPSULE 1 CAP PO (08:24)
[2024-10-27] MEDS: SEVELAMER CARBONATE 800 MG TABLET 2400 MG BY MOUTH (08:24)
[2024-10-27] MEDS: APIXABAN 5 MG TABLET PO (08:25)
[2024-10-27] MEDS: PANTOPRAZOLE SODIUM IV 40 MG VIAL IV PUSH (08:25)
[2024-10-27] MEDS: MONTELUKAST SODIUM 10 MG TABLET PO (08:25)
[2024-10-27] MEDS: CLOPIDOGREL BISULFATE 75 MG TABLET PO (08:25)
[2024-10-27 09:20] VITALS: PULSE 72; RESP 20; O2SAT 98
[2024-10-27] MEDS: UMECLIDINIUM/VILANTEROL 62.5-25 MCG ELLIPTA 1 PUFF INHALATION (09:20)
[2024-10-27] MEDS: HYDROcodone/acetaminophen (*CRX) 7.5-325 MG TABLET 1 TAB PO (11:03)
--- NOTE | 2024-10-27 11:15 | P.PNGI_ITS ---
Progress Note: A&P Assessment and Plan (1) Gastroparesis: Code(s): K31.84 - Gastroparesis Status: Acute Assessment and Plan: This patient, previously seen by our service a few weeks ago, was readmitted for another episode of nausea and vomiting after she stopped taking her metoclopramide. She is now improving and tolerating food better. We've instructed her to take metoclopramide three times a day, 20-30 minutes before each meal. Given her complex medical history of diabetes, chronic renal failure on dialysis, and gastroparesis, it's crucial to obtain a dietitian consultation before she is discharged. A detailed, personalized nutrition plan is essential to help manage her conditions and prevent future readmissions for similar complaints. Subjective Date/time seen: 10/27/24 11:15 Objective Data Vital Signs Vital Signs: Vital Signs - 24 hr 10/26/24 13:50 10/26/24 13:59 10/26/24 14:15 Temperature 98.4 F Pulse Rate 71 68 69 Respiratory Rate 18 Blood Pressure 161/76 H 170/72 H 163/71 H Pulse Oximetry Oxygen Delivery Oxygen Flow Rate 10/26/24 14:30 10/26/24 14:45 10/26/24 15:00 Temperature Pulse Rate 69 71 71 Respiratory Rate Blood Pressure 159/65 H 166/74 H 166/67 H Pulse Oximetry Oxygen Delivery Oxygen Flow Rate 10/26/24 15:15 10/26/24 15:30 10/26/24 15:45 Temperature Pulse Rate 69 70 70 Respiratory Rate Blood Pressure 164/71 H 160/71 H 174/75 H Pulse Oximetry Oxygen Delivery Oxygen Flow Rate 10/26/24 16:00 10/26/24 16:15 10/26/24 16:30 Temperature Pulse Rate 68 69 69 Respiratory Rate Blood Pressure 161/62 H 168/72 H 173/76 H Pulse Oximetry Oxygen Delivery Oxygen Flow Rate 10/26/24 16:45 10/26/24 17:00 10/26/24 17:15 Temperature Pulse Rate 66 70 70 Respiratory Rate Blood Pressure 153/66 H 181/72 H 188/83 H Pulse Oximetry Oxygen Delivery Oxygen Flow Rate 10/26/24 17:31 10/26/24 19:45 10/27/24 05:02 Temperature 98.2 F 98.4 F Pulse Rate 73 74 75 Respiratory Rate 18 16 Blood Pressure 181/76 H 157/62 H 167/63 H Pulse Oximetry 100 Oxygen Delivery Oxygen Flow Rate 10/27/24 09:20 10/27/24 09:20 Temperature Pulse Rate 72 72 Respiratory Rate 20 20 Blood Pressure Pulse Oximetry 98 Oxygen Delivery Nasal Cannula Oxygen Flow Rate 2 Intake/Output Intake/Output: Intake & Output 10/24/24 10/25/24 10/26/24 10/27/24 23:59 23:59 23:59 23:59 Intake Total 1702 1195 900 240 Output Total 2323 2608 Balance -623 1195 -1708 240 Meds/Results Medications: Active Medications Generic Name Dose Route Start Last Admin Trade Name Freq PRN Reason Stop Dose Admin Acetaminophen 650 mg 10/23/24 14:00 Acetaminophen 325 Mg Tablet PO Q4H PRN Mild Pain (1-3) or Fever Hydrocodone Bitart/Acetaminophen 1 tab 10/24/24 14:13 10/27/24 11:03 Hydrocodone/Acetaminophen (*Crx) 7.5-325 Mg Tablet PO 1 tab QID PRN Administration PAIN RATED 7-10 Apixaban 5 mg 10/24/24 21:00 10/27/24 08:25 Apixaban 5 Mg Tablet PO 5 mg Q12H DEMETRIO Administration Atorvastatin Calcium 20 mg 10/24/24 21:00 10/26/24 20:50 Atorvastatin 20 Mg Tablet PO 20 mg HS DEMETRIO Administration Clopidogrel Bisulfate 75 mg 10/24/24 09:00 10/27/24 08:25 Clopidogrel Bisulfate 75 Mg Tablet PO 75 mg DAILY DEMETRIO Administration Dextrose 12.5 gm 10/23/24 15:36 Dextrose 50% 25 Gm/50 Ml Syringe IV PUSH PRN PRN Hypoglycemia Protocol Diltiazem HCl 180 mg 10/23/24 21:00 10/26/24 20:50 Diltiazem Hcl Cd 180 Mg Cap.24hr PO 180 mg Q24H DEMETRIO Administration Glucagon 1 mg 10/23/24 15:36 Glucagon For Inj 1 Mg Vial IM PRN PRN Hypoglycemia Protocol Glucose 15 gm 10/23/24 15:36 Glucose Oral Gel 15 Gm Of Glucse In 37.5 Gm Tube PO PRN PRN Hypoglycemia Protocol Hydralazine HCl 10 mg 10/23/24 15:39 10/24/24 21:11 Hydralazine Hcl 20 Mg/Ml Vial IV PUSH 10 mg Q8H PRN Administration Blood Pressure - High Dextrose 1,000 mls @ 100 mls/hr 10/23/24 15:36 Dextrose 5% 1,000 Ml IVPB PRN PRN Hypoglycemia Protocol Dextrose/Sodium Chloride 1,000 mls @ 40 mls/hr 10/23/24 21:20 10/24/24 20:46 Dextrose 5% Sodium Chloride 0.9% IV CONT 40 mls/hr On Hold: 10/25/24 08:49 .Q24H DEMETRIO Administration Albumin Human 50 mls @ 999 mls/hr 10/23/24 23:47 Albutein IVPB 11/22/24 23:46 Q10M PRN HYPOTENSION Insulin Aspart 1 - 2 units 10/23/24 21:00 10/23/24 21:28 Insulin Aspart (*Bkc) 100 Units/Ml SUB-Q Not Given On Hold: 10/23/24 21:05 HS DEMETRIO Protocol Insulin Aspart 2 - 5 units 10/24/24 00:00 10/27/24 05:10 Insulin Aspart (*Bkc) 100 Units/Ml SUB-Q Not Given Q6HR [facility] Protocol Insulin Glargine 15 units 10/23/24 21:20 10/26/24 20:49 Insulin Glargine (*Bkc) 100 Units/Ml SUB-Q 15 units HS DEMETRIO Administration Levothyroxine Sodium 100 mcg 10/24/24 06:30 10/27/24 05:31 Levothyroxine Sodium 100 Mcg Tablet PO 100 mcg DAILY@0630 DEMETRIO Administration Levothyroxine Sodium 75 mcg 10/24/24 06:30 10/27/24 05:31 Levothyroxine Sodium 75 Mcg Tablet PO 75 mcg DAILY@0630 DEMETRIO Administration Lisinopril 10 mg 10/27/24 09:00 10/27/24 08:25 Lisinopril 10 Mg Tablet PO 10 mg QAM DEMETRIO Administration Metoclopramide HCl 10 mg 10/26/24 16:30 10/27/24 11:03 Metoclopramide Hcl 10 Mg Tablet PO 10 mg AC DEMETRIO Administration Montelukast Sodium 10 mg 10/24/24 14:20 10/27/24 08:25 Montelukast Sodium 10 Mg Tablet PO 10 mg DAILY DEMETRIO Administration Ondansetron HCl 4 mg 10/25/24 11:08 10/27/24 06:56 Ondansetron Inj 4 Mg/2 Ml Vial IV PUSH 4 mg Q6H PRN Administration Nausea And Vomiting Pantoprazole Sodium 40 mg 10/24/24 09:00 10/27/24 08:25 Pantoprazole Sodium Iv 40 Mg Vial IV PUSH 40 mg QAM DEMETRIO Administration Paroxetine HCl 40 mg 10/24/24 09:00 10/27/24 08:25 Paroxetine 20 Mg Tablet PO 40 mg DAILY DEMETRIO Administration Perflutren Lipid Microsphere 0 ml 10/25/24 11:06 Perflutren Lipid Microspheres 1.5 Ml Vial Diluted To 10 Ml Total Volume IV PUSH 10/28/24 11:06 ONCE PRN adequate visualization Protocol Promethazine HCl 12.5 mg 10/25/24 15:52 Promethazine Hcl 12.5 Mg Tablet PO Q8H PRN Nausea And Vomiting Sevelamer Carbonate 2,400 mg 10/25/24 17:00 10/27/24 08:24 Sevelamer Carbonate 800 Mg Tablet BY MOUTH 2,400 mg BIDWM DEMETRIO Administration Umeclidinium/Vilanterol 1 puff 10/28/24 09:00 Umeclidinium/Vilanterol 62.5-25 Mcg Ellipta INHALATION DAILY [facility] Vitamin B Complex/Folic Acid 1 cap 10/25/24 09:00 10/27/24 08:24 Vitamin B Cmplx/Vit C/Folic Ac 1 Capsule PO 1 cap QAM DEMETRIO Administration Radiology Results: ITS Impressions Abdomen/Pelvis CT 10/23/24 11:57 IMPRESSION: 1. No acute intra-abdominal/pelvic process. 2. Small bilateral pleural effusions with consolidation in the basilar right lower lobe and favor atelectasis over pneumonia. 3. Severe bilateral renal atrophy with stones in the bilateral renal pelvises sees without hydronephrosis. Chest X-Ray 10/24/24 08:00 IMPRESSION: 1. Likely congestive heart failure with cardiomegaly, mild pulmonary edema and small bilateral pleural effusions. 2. Additional linear and patchy airspace opacities in the left mid and bilateral lower lung zones which could represent atelectasis or pneumonia. Labs Labs: Laboratory Results - last 24 hr 10/26/24 10/26/24 10/26/24 11:35 18:36 20:40 WBC RBC Hgb Hct MCV MCH MCHC RDW Plt Count MPV Immature Gran % (Auto) Neut % (Auto) Lymph % (Auto) [place] % (Auto) Eos % (Auto) Baso % (Auto) Lymph # (Auto) [place] # (Auto) Eos # (Auto) Baso # (Auto) Abs Immat Gran (auto) Absolute Neuts (auto) Absolute Nucleated RBC Nucleated RBC % Sodium Potassium Chloride Carbon Dioxide Anion Gap BUN Creatinine Estim Creat Clear Calc Estimated GFR Glucose POC Capillary Glucose 125 H 93 148 H Calcium Total Bilirubin AST ALT Alkaline Phosphatase Total Protein Albumin 10/26/24 10/27/24 10/27/24 23:32 04:23 05:42 WBC 7.3 RBC 3.80 L Hgb 10.8 L Hct 33.8 L MCV 88.9 MCH 28.4 MCHC 32.0 RDW 14.1 Plt Count 227 MPV 9.3 Immature Gran % (Auto) 0.4 Neut % (Auto) 74.8 H Lymph % (Auto) 12.2 L [place] % (Auto) 9.6 H Eos % (Auto) 1.9 Baso % (Auto) 1.1 Lymph # (Auto) 0.89 L [place] # (Auto) 0.7 H Eos # (Auto) 0.1 Baso # (Auto) 0.1 Abs Immat Gran (auto) 0.03 Absolute Neuts (auto) 5.4 Absolute Nucleated RBC 0.000 Nucleated RBC % 0.0 Sodium 129 L Potassium 3.7 Chloride 96 L Carbon Dioxide 28 Anion Gap 5 BUN 13 D Creatinine 3.94 H Estim Creat Clear Calc 14 Estimated GFR 11 L Glucose 90 POC Capillary Glucose 118 H 79 Calcium 9.3 Total Bilirubin 0.4 AST 20 ALT 11 Alkaline Phosphatase 55 Total Protein 5.8 L Albumin 3.3 L
--- NOTE | 2024-10-27 11:20 | P.PNNP_ITS ---
Progress Note: A&P Assessment and Plan (1) End stage renal disease: Code(s): N18.6 - End stage renal disease Status: Chronic Assessment and Plan: * HD went well yesterday * next dialysis due on Tuesday whether here or at [place]. * Volume status looks okay. 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 Mathias (2) Nausea and vomiting: Qualifiers: Vomiting type: unspecified Qualified Code(s): R11.2 - Nausea with vomiting, unspecified Code(s): R11.2 - Nausea with vomiting, unspecified Status: Acute Assessment and Plan: * nausea better * no vomiting * suspect secondary to known history of gastroparesis * unable to afford nasal reglan for outpatient use * IV antiemetics while hospitalized * doing better with current care (3) Pneumonia: Qualifiers: Laterality: bilateral Lung location: lower lobe of lung Pneumonia type: due to unspecified organism Qualified Code(s): J18.9 - Pneumonia, unspecified organism Code(s): J18.9 - Pneumonia, unspecified organism Status: Acute Assessment and Plan: * as suggested by admission imaging * blood cultures negative * complicated by #4 * finished antibiotics (4) Chronic hypoxic respiratory failure: Code(s): J96.11 - Chronic respiratory failure with hypoxia Status: Acute Assessment and Plan: * follows with Pulmonary as an outpatient * presumably due to COPD * on 2L oxygen by NC at night and PRN during the day (5) Hyponatremia: Code(s): E87.1 - Hypo-osmolality and hyponatremia Status: Acute Assessment and Plan: * chronic issue * probably related due to kidney disease/ESRD, lung disease (COPD/VIJAY), chronic nausea, and possibly increased free water intake * pneumonia may be playing a role as well(?) * should correct to some degree with dialysis * follow trend (6) Anemia: Code(s): D64.9 - Anemia, unspecified Status: Chronic Assessment and Plan: * due to ESRD * Epogen with HD * follow trend of H/H (7) Hypertension: Code(s): I10 - Essential (primary) hypertension Status: Chronic Assessment and Plan: * elevated on admission/currently * fluid removal with HD may help to some degree * resume home BP medications * not sure why on both amlodipine AND diltiazem... * will d/c amlodipine in favor of lisinopril * lisinopril just increased from 5-10 today * follow trend of hemodynamics (8) Diabetes mellitus: Code(s): E11.9 - Type 2 diabetes mellitus without complications Status: Chronic Assessment and Plan: * follow accu-cheks * glycemic control per hospitalist Will continue to follow. Subjective Date/time seen: 10/27/24 11:20 Interval history: patient is alert. Feeling okay. Eating well. Dialysis went well yesterday eager for discharge today Exam Narrative: General: WD/WN female in NAD Heart: normal S1 and S2; no rub or gallop Lungs: coarse breath sounds; decreased at bases Abdomen: soft, nontender, nondistended, positive bowel sounds Extremities: no cyanosis or clubbing; trace edema Skin: no rash or subcu nodules Objective Data Vital Signs Vital Signs: Vital Signs - 24 hr 10/26/24 13:50 10/26/24 13:59 10/26/24 14:15 Temperature 98.4 F Pulse Rate 71 68 69 Respiratory Rate 18 Blood Pressure 161/76 H 170/72 H 163/71 H Pulse Oximetry Oxygen Delivery Oxygen Flow Rate 10/26/24 14:30 10/26/24 14:45 10/26/24 15:00 Temperature Pulse Rate 69 71 71 Respiratory Rate Blood Pressure 159/65 H 166/74 H 166/67 H Pulse Oximetry Oxygen Delivery Oxygen Flow Rate 10/26/24 15:15 10/26/24 15:30 10/26/24 15:45 Temperature Pulse Rate 69 70 70 Respiratory Rate Blood Pressure 164/71 H 160/71 H 174/75 H Pulse Oximetry Oxygen Delivery Oxygen Flow Rate 10/26/24 16:00 10/26/24 16:15 10/26/24 16:30 Temperature Pulse Rate 68 69 69 Respiratory Rate Blood Pressure 161/62 H 168/72 H 173/76 H Pulse Oximetry Oxygen Delivery Oxygen Flow Rate 10/26/24 16:45 10/26/24 17:00 10/26/24 17:15 Temperature Pulse Rate 66 70 70 Respiratory Rate Blood Pressure 153/66 H 181/72 H 188/83 H Pulse Oximetry Oxygen Delivery Oxygen Flow Rate 10/26/24 17:31 10/26/24 19:45 10/27/24 05:02 Temperature 98.2 F 98.4 F Pulse Rate 73 74 75 Respiratory Rate 18 16 Blood Pressure 181/76 H 157/62 H 167/63 H Pulse Oximetry 100 Oxygen Delivery Oxygen Flow Rate 10/27/24 09:20 10/27/24 09:20 Temperature Pulse Rate 72 72 Respiratory Rate 20 20 Blood Pressure Pulse Oximetry 98 Oxygen Delivery Nasal Cannula Oxygen Flow Rate 2 Intake/Output Intake/Output: Intake & Output 10/24/24 10/25/24 10/26/24 10/27/24 23:59 23:59 23:59 23:59 Intake Total 1702 1195 900 240 Output Total 2325 2608 Balance -623 1195 -1708 240 Meds/Results Medications: Active Medications Generic Name Dose Route Start Last Admin Trade Name Freq PRN Reason Stop Dose Admin Acetaminophen 650 mg 10/23/24 14:00 Acetaminophen 325 Mg Tablet PO Q4H PRN Mild Pain (1-3) or Fever Hydrocodone Bitart/Acetaminophen 1 tab 10/24/24 14:13 10/27/24 11:03 Hydrocodone/Acetaminophen (*Crx) 7.5-325 Mg Tablet PO 1 tab QID PRN Administration PAIN RATED 7-10 Apixaban 5 mg 10/24/24 21:00 10/27/24 08:25 Apixaban 5 Mg Tablet PO 5 mg Q12H DEMETRIO Administration Atorvastatin Calcium 20 mg 10/24/24 21:00 10/26/24 20:50 Atorvastatin 20 Mg Tablet PO 20 mg HS DEMETRIO Administration Clopidogrel Bisulfate 75 mg 10/24/24 09:00 10/27/24 08:25 Clopidogrel Bisulfate 75 Mg Tablet PO 75 mg DAILY DEMETRIO Administration Dextrose 12.5 gm 10/23/24 15:36 Dextrose 50% 25 Gm/50 Ml Syringe IV PUSH PRN PRN Hypoglycemia Protocol Diltiazem HCl 180 mg 10/23/24 21:00 10/26/24 20:50 Diltiazem Hcl Cd 180 Mg Cap.24hr PO 180 mg Q24H DEMETRIO Administration Glucagon 1 mg 10/23/24 15:36 Glucagon For Inj 1 Mg Vial IM PRN PRN Hypoglycemia Protocol Glucose 15 gm 10/23/24 15:36 Glucose Oral Gel 15 Gm Of Glucse In 37.5 Gm Tube PO PRN PRN Hypoglycemia Protocol Hydralazine HCl 10 mg 10/23/24 15:39 10/24/24 21:11 Hydralazine Hcl 20 Mg/Ml Vial IV PUSH 10 mg Q8H PRN Administration Blood Pressure - High Dextrose 1,000 mls @ 100 mls/hr 10/23/24 15:36 Dextrose 5% 1,000 Ml IVPB PRN PRN Hypoglycemia Protocol Dextrose/Sodium Chloride 1,000 mls @ 40 mls/hr 10/23/24 21:20 10/24/24 20:46 Dextrose 5% Sodium Chloride 0.9% IV CONT 40 mls/hr On Hold: 10/25/24 08:49 .Q24H DEMETRIO Administration Albumin Human 50 mls @ 999 mls/hr 10/23/24 23:47 Albutein IVPB 11/22/24 23:46 Q10M PRN HYPOTENSION Insulin Aspart 1 - 2 units 10/23/24 21:00 10/23/24 21:28 Insulin Aspart (*Bkc) 100 Units/Ml SUB-Q Not Given On Hold: 10/23/24 21:05 [facility] Protocol Insulin Aspart 2 - 5 units 10/24/24 00:00 10/27/24 05:10 Insulin Aspart (*Bkc) 100 Units/Ml SUB-Q Not Given Q6HR [facility] Protocol Insulin Glargine 15 units 10/23/24 21:20 10/26/24 20:49 Insulin Glargine (*Bkc) 100 Units/Ml SUB-Q 15 units HS DEMETRIO Administration Levothyroxine Sodium 100 mcg 10/24/24 06:30 10/27/24 05:31 Levothyroxine Sodium 100 Mcg Tablet PO 100 mcg DAILY@0630 DEMETRIO Administration Levothyroxine Sodium 75 mcg 10/24/24 06:30 10/27/24 05:31 Levothyroxine Sodium 75 Mcg Tablet PO 75 mcg DAILY@0630 DEMETRIO Administration Lisinopril 10 mg 10/27/24 09:00 10/27/24 08:25 Lisinopril 10 Mg Tablet PO 10 mg QAM DEMETRIO Administration Metoclopramide HCl 10 mg 10/26/24 16:30 10/27/24 11:03 Metoclopramide Hcl 10 Mg Tablet PO 10 mg AC DEMETRIO Administration Montelukast Sodium 10 mg 10/24/24 14:20 10/27/24 08:25 Montelukast Sodium 10 Mg Tablet PO 10 mg DAILY DEMETRIO Administration Ondansetron HCl 4 mg 10/25/24 11:08 10/27/24 06:56 Ondansetron Inj 4 Mg/2 Ml Vial IV PUSH 4 mg Q6H PRN Administration Nausea And Vomiting Pantoprazole Sodium 40 mg 10/24/24 09:00 10/27/24 08:25 Pantoprazole Sodium Iv 40 Mg Vial IV PUSH 40 mg QAM DEMETRIO Administration Paroxetine HCl 40 mg 10/24/24 09:00 10/27/24 08:25 Paroxetine 20 Mg Tablet PO 40 mg DAILY DEMETRIO Administration Perflutren Lipid Microsphere 0 ml 10/25/24 11:06 Perflutren Lipid Microspheres 1.5 Ml Vial Diluted To 10 Ml Total Volume IV PUSH 10/28/24 11:06 ONCE PRN adequate visualization Protocol Promethazine HCl 12.5 mg 10/25/24 15:52 Promethazine Hcl 12.5 Mg Tablet PO Q8H PRN Nausea And Vomiting Sevelamer Carbonate 2,400 mg 10/25/24 17:00 10/27/24 08:24 Sevelamer Carbonate 800 Mg Tablet BY MOUTH 2,400 mg BIDWM DEMETRIO Administration Umeclidinium/Vilanterol 1 puff 10/28/24 09:00 Umeclidinium/Vilanterol 62.5-25 Mcg Ellipta INHALATION DAILY [facility] Vitamin B Complex/Folic Acid 1 cap 10/25/24 09:00 10/27/24 08:24 Vitamin B Cmplx/Vit C/Folic Ac 1 Capsule PO 1 cap QAM DEMETRIO Administration Radiology Results: ITS Impressions Abdomen/Pelvis CT 10/23/24 11:57 IMPRESSION: 1. No acute intra-abdominal/pelvic process. 2. Small bilateral pleural effusions with consolidation in the basilar right lower lobe and favor atelectasis over pneumonia. 3. Severe bilateral renal atrophy with stones in the bilateral renal pelvises sees without hydronephrosis. Chest X-Ray 10/24/24 08:00 IMPRESSION: 1. Likely congestive heart failure with cardiomegaly, mild pulmonary edema and small bilateral pleural effusions. 2. Additional linear and patchy airspace opacities in the left mid and bilateral lower lung zones which could represent atelectasis or pneumonia. Labs Labs: Laboratory Results - last 24 hr 10/26/24 10/26/24 10/26/24 11:35 18:36 20:40 WBC RBC Hgb Hct MCV MCH MCHC RDW Plt Count MPV Immature Gran % (Auto) Neut % (Auto) Lymph % (Auto) [place] % (Auto) Eos % (Auto) Baso % (Auto) Lymph # (Auto) [place] # (Auto) Eos # (Auto) Baso # (Auto) Abs Immat Gran (auto) Absolute Neuts (auto) Absolute Nucleated RBC Nucleated RBC % Sodium Potassium Chloride Carbon Dioxide Anion Gap BUN Creatinine Estim Creat Clear Calc Estimated GFR Glucose POC Capillary Glucose 125 H 93 148 H Calcium Total Bilirubin AST ALT Alkaline Phosphatase Total Protein Albumin 10/26/24 10/27/24 10/27/24 23:32 04:23 05:42 WBC 7.3 RBC 3.80 L Hgb 10.8 L Hct 33.8 L MCV 88.9 MCH 28.4 MCHC 32.0 RDW 14.1 Plt Count 227 MPV 9.3 Immature Gran % (Auto) 0.4 Neut % (Auto) 74.8 H Lymph % (Auto) 12.2 L [place] % (Auto) 9.6 H Eos % (Auto) 1.9 Baso % (Auto) 1.1 Lymph # (Auto) 0.89 L [place] # (Auto) 0.7 H Eos # (Auto) 0.1 Baso # (Auto) 0.1 Abs Immat Gran (auto) 0.03 Absolute Neuts (auto) 5.4 Absolute Nucleated RBC 0.000 Nucleated RBC % 0.0 Sodium 129 L Potassium 3.7 Chloride 96 L Carbon Dioxide 28 Anion Gap 5 BUN 13 D Creatinine 3.94 H Estim Creat Clear Calc 14 Estimated GFR 11 L Glucose 90 POC Capillary Glucose 118 H 79 Calcium 9.3 Total Bilirubin 0.4 AST 20 ALT 11 Alkaline Phosphatase 55 Total Protein 5.8 L Albumin 3.3 L
--- NOTE | 2024-10-27 13:23 | PM.DS ---
DS: Admitting Diagnosis Discharge Date 10/27/24 Admitting Diagnosis - nausea/vomiting - hyponatremia DS: Discharge Diagnosis Discharge Diagnosis (1) Nausea and vomiting: Qualifiers: Vomiting type: unspecified Qualified Code(s): R11.2 - Nausea with vomiting, unspecified Code(s): R11.2 - Nausea with vomiting, unspecified Status: Acute (2) Gastroparesis: Code(s): K31.84 - Gastroparesis Status: Acute (3) Hypertension: Code(s): I10 - Essential (primary) hypertension Status: Chronic (4) CHF (congestive heart failure): Code(s): I50.9 - Heart failure, unspecified Status: Acute (5) Afib: Code(s): I48.91 - Unspecified atrial fibrillation Status: Acute (6) Diabetes mellitus: Code(s): E11.9 - Type 2 diabetes mellitus without complications Status: Chronic (7) Hyponatremia: Code(s): E87.1 - Hypo-osmolality and hyponatremia Status: Acute (8) ESRD (end stage renal disease) on dialysis: Code(s): N18.6 - End stage renal disease; Z99.2 - Dependence on renal dialysis Status: Acute (9) COPD (chronic obstructive pulmonary disease): Qualifiers: COPD type: COPD with acute exacerbation Qualified Code(s): J44.1 - Chronic obstructive pulmonary disease with (acute) exacerbation Code(s): J44.9 - Chronic obstructive pulmonary disease, unspecified Status: Acute (10) Chronic hypoxic respiratory failure: Code(s): J96.11 - Chronic respiratory failure with hypoxia Status: Acute DS: Summary Hospital Course Reason for hospitalization: nausea/vomiting Hospital Course: 65-year-old female past medical history of CHF, CVA, CAD, hypothyroidism dialysis Tuesday, diabetes, gastroparesis presents the hospital with uncontrolled nausea and vomiting. Labs in the ED showed leukocytosis at 13.0, sodium of 130, chloride of 94, anion gap of 13, creatinine of 5.08 GFR 9, glucose of 272, calcium of 10.8, CT abdomen pelvis show no acute intra-abdominal processes, small bilateral pleural effusions with consolidation likely atelectasis and bilateral kidney stones. Patient given IV fluids, IV Reglan and Protonix. Patient admitted for further evaluation and management. Patient noted to have suspected gastroparesis in setting of diabetes and chronic opiate use. Patient was started on IV Reglan p.r.n. with some improvement in her symptoms. GI was consulted and Reglan was scheduled. Patient subsequently had significant improvement in her nausea and vomiting and was tolerating a regular diet. Dietitian followed during admission. GI recommended to continue scheduled Reglan on discharge and follow up closely as outpatient. She was encouraged to eat small frequent meals and maintain good blood sugar control. In regards to patient's hyponatremia, sodium anastacio 123 in setting of decreased p.o. intake and volume overload. After dialysis, patient's sodium improved to 129 which is near her baseline. She will have periodic lab monitoring as outpatient with dialysis. While admitted, patient had concern for pneumonia vs. CHF given CT findings. Patient was initially started on Rocephin and azithromycin however patient remained afebrile without leukocytosis and no cough so antibiotics were stopped and patient remained stable. Patient's volume status was managed with dialysis and she remained on her baseline home oxygen. She appeared euvolemic on discharge. She will resume her outpatient dialysis schedule. While admitted, Nephrology followed and adjusted patient's blood pressure medications including stopping amlodipine due to patient already being on diltiazem. She was started on lisinopril which was uptitrated and blood pressure was improving on discharge. She was instructed to monitor her blood pressure is 1 to 2 times daily and keep a log to bring to her follow-up appointments. Patient was discharged home in stable condition. Status at Discharge Functional status at discharge: independent ambulation Time Spent with Patient Time attestation: Total time spent providing and/or coordinating discharge services: Time spent: Less than 30 minutes Exam Narrative: General: NAD, obese, well-appearing Eyes: EOMI ENT: neck supple Cardiovascular: Regular rate and rhythm Respiratory: Clear to auscultation, respirations even and unlabored on RA Gastrointestinal: Soft, mild epigastric tenderness with palpation Genitourinary: no suprapubic tenderness Musculoskeletal: No edema Skin: warm, dry Neuro: Alert. Psych: Mood appropriate DS: Data Data Completed and Pending Completed studies during hospitalization: ITS Impressions Abdomen/Pelvis CT 10/23/24 11:57 IMPRESSION: 1. No acute intra-abdominal/pelvic process. 2. Small bilateral pleural effusions with consolidation in the basilar right lower lobe and favor atelectasis over pneumonia. 3. Severe bilateral renal atrophy with stones in the bilateral renal pelvises sees without hydronephrosis. Chest X-Ray 10/24/24 08:00 IMPRESSION: 1. Likely congestive heart failure with cardiomegaly, mild pulmonary edema and small bilateral pleural effusions. 2. Additional linear and patchy airspace opacities in the left mid and bilateral lower lung zones which could represent atelectasis or pneumonia. Labs on day of discharge: Labs from last 24 hours 10/27/24 10/27/24 10/27/24 11:46 05:42 04:23 WBC 7.3 RBC 3.80 L Hgb 10.8 L Hct 33.8 L MCV 88.9 MCH 28.4 MCHC 32.0 RDW 14.1 Plt Count 227 MPV 9.3 Immature Gran % (Auto) 0.4 Neut % (Auto) 74.8 H Lymph % (Auto) 12.2 L [place] % (Auto) 9.6 H Eos % (Auto) 1.9 Baso % (Auto) 1.1 Lymph # (Auto) 0.89 L [place] # (Auto) 0.7 H Eos # (Auto) 0.1 Baso # (Auto) 0.1 Abs Immat Gran (auto) 0.03 Absolute Neuts (auto) 5.4 Absolute Nucleated RBC 0.000 Nucleated RBC % 0.0 Sodium 129 L Potassium 3.7 Chloride 96 L Carbon Dioxide 28 Anion Gap 5 BUN 13 D Creatinine 3.94 H Estim Creat Clear Calc 14 Estimated GFR 11 L Glucose 90 POC Capillary Glucose 119 H 79 Calcium 9.3 Total Bilirubin 0.4 AST 20 ALT 11 Alkaline Phosphatase 55 Total Protein 5.8 L Albumin 3.3 L 10/26/24 10/26/24 10/26/24 23:32 20:40 18:36 WBC RBC Hgb Hct MCV MCH MCHC RDW Plt Count MPV Immature Gran % (Auto) Neut % (Auto) Lymph % (Auto) [place] % (Auto) Eos % (Auto) Baso % (Auto) Lymph # (Auto) [place] # (Auto) Eos # (Auto) Baso # (Auto) Abs Immat Gran (auto) Absolute Neuts (auto) Absolute Nucleated RBC Nucleated RBC % Sodium Potassium Chloride Carbon Dioxide Anion Gap BUN Creatinine Estim Creat Clear Calc Estimated GFR Glucose POC Capillary Glucose 118 H 148 H 93 Calcium Total Bilirubin AST ALT Alkaline Phosphatase Total Protein Albumin Discharge Plan Discharge Attending physician on discharge: Yee Celeste Consulting providers: Fernando Rich; Lynsey Adames Discharging Clinician: Lynsey Adames Anticipated Discharge Date/Time: 10/27/24 12:14 Patient Disposition: Home Activity: as tolerated Diet: regular, diabetic and other - see discharge instructions Discharge Instructions: Take all medications as prescribed. Take Reglan at least 15 minutes prior to eating to avoid nausea and help with stomach motility. Eat small, more frequent meals. Eat slowly. Your amlodipine was stopped due to it being in the same class as cardizem (diltiazem). You have been started on lisinopril instead. Check your blood pressure daily and keep a log to bring to follow-up appointments to determine if further medication changes need to be made. Follow-up with your primary care provider in one week. Return to the emergency department if you develop chest pain, shortness of breath, persistent fever >100.4, confusion, loss of consciousness. Patient Instructions: Antibiotic Form, Apixaban (By mouth), Safe Use of Anticoagulants (GEN), Blood Thinners (GEN) Patient Language: Estonian Stand Alone Forms: General Discharge Information Follow-up/Referrals: Jabari Banda MD [Primary Care Provider, Internal Medicine] - Call for Appointment Referral Note: follow-up in 5-7 days Sim Nieto MD [Physician, Gastroenterology] - Call for Appointment Referral Note: follow-up for gastroparesis Discharge Medications: New pantoprazole [Protonix] 40 mg tablet,delayed release (DR/EC) 40 mg PO HS 28 Days Qty: 28 0RF ondansetron 4 mg tablet,disintegrating 4 mg PO Q8H PRN (Reason: nausea and vomiting) Qty: 20 0RF lisinopril 10 mg Tablet 10 mg PO QAM Qty: 30 0RF hydrocodone-acetaminophen 7.5-325 mg tablet 1 tablet PO Q8H PRN (Reason: pain) Qty: 6 0RF Continued montelukast 10 mg tablet 10 mg PO DAILY Deepa-Vikash 0.8 mg tablet 0.8 tablet PO DAILY levothyroxine 175 mcg tablet 175 mcg PO DAILY atorvastatin 20 mg tablet 20 mg PO HS clopidogrel 75 mg tablet 75 mg PO DAILY hydrocodone-acetaminophen 7.5-325 mg tablet 1 tablet PO QID PRN (Reason: Pain) paroxetine HCl 40 mg tablet 40 mg PO DAILY insulin asp prt-insulin aspart [Novolog Mix 70-30FlexPen U-100] 100 unit/mL (70-30) insulin pen 35 unit SUBCUT BID Patient Comments: Patient has not been taking due to decreased appetite. sevelamer carbonate 800 mg tablet See Rx Instructions .ROUTE .COMPLEX Patient Comments: Takes with meals Rx Instructions: take as prescribed Eliquis 5 mg tablet 5 mg PO Q12H diltiazem HCl [DILT-XR] 180 mg capsule,ext.rel 24h degradable 180 mg PO Q24H umeclidinium-vilanterol [Anoro Ellipta] 62.5-25 mcg/actuation blister with device 1 inh INHALATION Q24H Changed metoclopramide HCl 10 mg tablet 10 mg PO TIDWM Qty: 90 0RF Patient Comments: Before meals Discontinued amlodipine 5 mg tablet 5 mg PO DAILY ondansetron 4 mg tablet,disintegrating 4 mg PO PRN Gimoti 15 mg/spray spray with pump 1 spray intranasal QID 28 Days Qty: 9.8 0RF Rx Instructions: administer into ONE nostril 15 minutes before each meal and at bedtime Date of admission: 10/24/24 10:14 Primary Care Provider: Jabari Banda Admitting Provider: Yee Celeste Attending physician on admission: Yee Celeste Condition: Stable
== END 2024-10-27 13:20 | disposition home or self-care (01) | DRG 73 ==
LOC: ANHED 12:59 → ANH3MEDSUR 15:11
PROVIDERS: Internal Medicine; Internal Medicine Nephrology; Nurse Practitioner Gerontology; Admitting Provider Internal Medicine; Emergency Provider Physician Assistant; PCP Internal Medicine; Visit Provider Physician Assistant
DX: E11.43 Type 2 diabetes mellitus with diabetic autonomic (poly)neuropathy (principal); N18.6 End stage renal disease; E87.1 Hypo-osmolality and hyponatremia; J96.11 Chronic respiratory failure with hypoxia; I13.2 Hypertensive heart and chronic kidney disease with heart failure and with stage 5 chronic kidney disease, or end stage renal disease; J44.1 Chronic obstructive pulmonary disease with (acute) exacerbation; K31.84 Gastroparesis; E11.22 Type 2 diabetes mellitus with diabetic chronic kidney disease; I50.9 Heart failure, unspecified; I25.10 Atherosclerotic heart disease of native coronary artery without angina pectoris; D63.1 Anemia in chronic kidney disease; E03.9 Hypothyroidism, unspecified; I48.91 Unspecified atrial fibrillation; E66.9 Obesity, unspecified; F12.91 Cannabis use, unspecified, in remission; Z99.2 Dependence on renal dialysis; Z79.4 Long term (current) use of insulin; Z79.01 Long term (current) use of anticoagulants; Z79.891 Long term (current) use of opiate analgesic; Z86.73 Personal history of transient ischemic attack (TIA), and cerebral infarction without residual deficits; Z86.59 Personal history of other mental and behavioral disorders; Z87.891 Personal history of nicotine dependence; Z91.141 Patient's other noncompliance with medication regimen due to financial hardship; Z90.49 Acquired absence of other specified parts of digestive tract; Z68.30 Body mass index [BMI] 30.0-30.9, adult; Z99.81 Dependence on supplemental oxygen
CPT/HCPCS: 36415; 71045; 74176; 80053; 82948; 83690; 83735; 84100; 84145; 85025; 86706; 87340; 87641; 93306; 94640; 96374; 96375; 96376; 99285; A9270; G0257; G0378; J0360; J0456; J0696; J0780; J1644; J1815; J2405; J2470; J2765; J2919; J7030; J7042; J7050; Q5105

== ENCOUNTER 2024-12-04 18:45 | Emergency (ER) | payer MEDICARE, MEDICAID, SELFPAY ==
[2024-12-04] VITALS (11 sets, daily range): BP systolic 163–211; BP diastolic 82–104; PULSE 78–84; RESP 15–26; TEMP 36.6; O2SAT 96–98
--- NOTE | ~2024-12-04 | XR_ITS ---
XR chest 1V portable INDICATION:sepsis . REFERENCE: None FINDINGS: A single AP of the chest demonstrates enlarged heart. Groundglass opacities are noted bilaterally. There are small bilateral pleural effusions. No pneumothorax. IMPRESSION: Groundglass opacities are noted bilaterally with small bilateral pleural effusions. Reviewed, dictated and finalized at location S. IMPRESSION: Groundglass opacities are noted bilaterally with small bilateral pleural effusi ons.
--- NOTE | ~2024-12-04 | CT_ITS ---
CT brain wo con HISTORY:AMS COMPARISON: None. TECHNIQUE: Axial images were obtained of the head without intravenous contrast. FINDINGS: No acute intracranial hemorrhage, mass effect or midline shift. No extra-axial fluid collections. Chronic white matter microangiopathic changes are noted in the periventricular white matter. The calvarium is intact. Visualized paranasal sinuses and mastoid air cells are clear. IMPRESSION: No acute intracranial hemorrhage or extra axial fluid collections. All CT scans at this facility are performed using low dose modulation techniques as appropriate to perform exam including the following: automated exposure control; use of iterative reconstruction technique; adjustment of the mA and/or kV according to patient size (this includes techniques or standardized protocols for targeted exams where dose is matched to indication/reason for exam). Reviewed, dictated and finalized at location S. IMPRESSION: No acute intracranial hemorrhage or extra axial fluid collections. All CT scans at this facility are performed using low dose modulation techniqu es as appropriate to perform exam including the following: automated exposure c ontrol; use of iterative reconstruction technique; adjustment of the mA and/or kV according to patient size (this includes techniques or standardized protocol s for targeted exams where dose is matched to indication/reason for exam).
--- NOTE | 2024-12-04 18:56 | ECG_ITS ---
Test Date: 2024-12-04 19:08:18 Measurements Intervals [place] Rate: 82 P: -6 SD: 171 QRS: -74 QRSD: 86 T: 91 QT: 373 QTc: 437 Interpretive Statements SINUS RHYTHM LEFT ANTERIOR FASCICULAR BLOCK ANTEROSEPTAL INFARCT, AGE INDETERMINATE BORDERLINE T WAVE ABNORMALITY- HIGH LATERAL LEADS BASELINE ARTIFACT- I, II, AVR, AVL, AVF, V1-V6 ABNORMAL ECG Compared to ECG 10/17/2024 00:34:44 Left anterior fascicular block now present Electronically Signed On 12-04-2024 19:31:03 CDT by Vincenzo Huddleston D.O.
--- OUTSIDE RECORDS SUMMARY | 2024-12-04 19:27 | XMS_ITS | Encounter Summary ---
Author Organization [facility] Address [address] [place] [address] Care Team Providers Care Exterior Designer Name Role Phone Jabari Banda MD Primary Care Provider [phone] Klaus Ramos MD Unavailable [phone] Rylee Rocha MD Unavailable Sergio Ahn PA-C Unavailable [phone] Encounter Details Date Type Department Care Team (Late st Contact Info) Description 10/28/2021 Hospital Follow-up Call [facility] Unit [address] [place] [address] Nikki Springer, RN Social History Tobacco Use [...] Sex Assigned at Female 03/23/2024 12:06 PM SOFTWARE DESIGN ENGINEER Legal Sex Female 3:27 AM CDT Gender Identity Female 02/11/2023 3:50 PM SOFTWARE DESIGN ENGINEER Sexual Orientation Not on file COVID-19 Exposure [...] Date Author Status No 10/21/2021 5:00 PM KISHAT Mata Bean RN Active documented in this encounter Plan of Treatment Not on file documented as of this encounter Goals Goal [...] Rule Out 01/08/2024 01/08/2024 01/08/2024 10:52 PM SOFTWARE DESIGN ENGINEER COVID-19 Rule Out 06/18/2024 06/18/2024 06/18/2024 8:01 AM CDT Respiratory Rule Out 06/18/2024 06/18/2024 025 8:01 AM CDT documented as of this encounter Care Teams Exterior Designer Relationship Specialty Start Date End Date Jabari Banda MD [address] [place] [address] PCP - General INTERNAL MEDICINE 12/02/15 Klaus Ramos MD [address] [place] [id number] Josephine Oiling Machine Operator CARDIOVASCULAR DISEASE 07/26/18 10/05/23 Rylee Rocha MD [address] [place] [id number] Consulting Physician CARDIOVASCULAR DISEASE 10/06/23 Sergio Ahn PA-C [address] [place] [phone] PHYSICIAN THEATER PROJECTIONIST 11/10/23 documented as of this encounter
--- OUTSIDE RECORDS SUMMARY | 2024-12-04 19:27 | XMS_ITS | Encounter Summary ---
Author Organization [facility] Address [address] [place] [address] Care Team Providers Care Anaesthetic Technician Name Role Phone Jabari Banda MD Primary Care Provider [phone] Klaus Ramos MD Unavailable [phone] Rylee Rocha MD Unavailable Sergio Ahn PA-C Unavailable [phone] Encounter Details Date Type Department Care Team (Late st Contact Info) Description 07/29/2018 Abstract SFL CONVERSION [address] [place], [place] [id number] , Generic Conversion, Social History Tobacco Use [...] Sex Assigned at Female 03/23/2024 12:06 PM POLLUTION CONTROL TECHNICIAN Legal Sex Female 3:27 AM CDT Gender Identity Female 02/11/2023 3:50 PM POLLUTION CONTROL TECHNICIAN Sexual Orientation Not on file documented [...] PM KISHAT Anahy Gao RN Active * Do you have difficulty dressing or bathing? Answer Date of Assessment Author Status No 07/19/2018 12:11 PM Anahy Irvin RN Active * Because of a physical, mental, or emotional condition, do you have difficulty doing errands alone such as visiting a doctor's office or shopping? Answer Date of Assessment Author Status No 07/19/2018 12:11 PM Anahy Irvin RN Active documented as of this encounter Mental Status * Because of a physical, mental, or emotional condition, do you have serious difficulty concentrating, remembering, or making decisions? Answer Entry Date Author Status No 07/19/2018 12:11 PM Anahy Irvin RN Active documented in this encounter Plan of Treatment Not on file documented as of this encounter Visit Diagnoses Not on filedocumented in this encounter Additional Health Concerns Infection Onset Date Last Indicated Resolved Time COVID-19 Rule Out 06/19/2019 06/19/2019 06/20/2019 5:16 AM CDT COVID-19 Confirmed 11/25/2019 11/25/2019 0 12:33 AM POLLUTION CONTROL TECHNICIAN COVID-19 Rule Out 11/25/2019 11/25/2019 11/26/2019 12:00 PM CDT COVID-19 Rule Out 09/25/2021 09/25/2021 09/26/2021 1:16 AM CDT COVID-19 Rule Out 10/21/2021 10/21/2021 10/22/2021 2:07 PM CDT COVID-19 Rule Out 01/08/2024 01/08/2024 01/08/2024 10:52 PM POLLUTION CONTROL TECHNICIAN COVID-19 Rule Out 06/18/2024 06/18/2024 06/18/2024 8:01 AM CDT Respiratory Rule Out 06/18/2024 06/18/2024 025 8:01 AM CDT documented as of this encounter Care Teams Anaesthetic Technician Relationship Specialty Start Date End Date Jabari Banda MD [address] [place] [address] PCP - General INTERNAL MEDICINE 12/02/15 Klaus Ramos MD [address] [place] [phone] Armbrust Direct Care Supervisor CARDIOVASCULAR DISEASE 07/26/18 10/05/23 Rylee Rocha MD [address] [place] [address] Consulting Physician CARDIOVASCULAR DISEASE 10/06/23 Sergio Ahn PA-C [address] [place] [phone] PHYSICIAN TIRE MAN 11/10/23 documented as of this encounter
--- OUTSIDE RECORDS SUMMARY | 2024-12-04 19:27 | XMS_ITS | Clinical Summary ---
Author Organization [facility] Address [address] [place] [address] Phone Care Team Providers Care Coastal Tug Mate Name Role Phone Provider, None Primary Care Provider Unavailabl e Allergies No known active allergies Medications Eliquis 5 MG Tablet Take 5 mg by mouth 2 times daily. 4 Active B Cwhoiug-K-Txqay Acid (Deepa-Vikash Rx) 1 MG Tablet Take [...] Years Used Date Smoking Tobacco: Never Assessed [facility] Utilities Answer Date Recorded In the past [...] any time in the past 12 m [facility], were you homeless or living in a assisted (including now)? Patient declined 03/13/2024 Comments Unknown Sex and Gender Information Value Date Recorded Sex Assigned at Not on file Legal Sex Female 9:03 AM APPLICATIONS SYSTEM ANALYST Gender Identity Not on file Sexual Orientation Not on file Last Filed Vital Signs Vital Sign Reading Time Taken Comments Blood Pressure 184/65 03/15/2024 2:00 PM APPLICATIONS SYSTEM ANALYST Pulse 74 03/15/2024 2:00 PM APPLICATIONS SYSTEM ANALYST Temperature 36.5 C (97.7 F) 03/15/2024 2:00 PM APPLICATIONS SYSTEM ANALYST Respiratory Rate 18 03/15/2024 2:00 PM APPLICATIONS SYSTEM ANALYST Oxygen Saturation 97% 03/15/2024 8:02 AM APPLICATIONS SYSTEM ANALYST Inhaled Oxygen Concentration - - Weight 97.8 kg (215 lb 9.8 oz) 03/14/2024 2:30 P M APPLICATIONS SYSTEM ANALYST Height 165.1 cm (5' 5) 03/13/2024 2:33 PM APPLICATIONS SYSTEM ANALYST Body Mass Index 35.88 03/13/2024 2:33 PM APPLICATIONS SYSTEM ANALYST Plan of Treatment Health Maintenance Due Date Last Done Comments Diabetes: Eye Exam 1960 Diabetes: Foot Exam 1960 Mammogram 1960 TdaP Immunization 1960 Pap Smear 1981 Cervical Cancer Screening (CCS) 1990 HPV/Cotest 1990 Cologuard 2005 Colonoscopy 2005 Colorectal Cancer Screening 2005 Immunochemical Fecal Occult Blood 2005 Zoster Immunization (1 of 2) 2010 Medicare Initial AWV G0438 11/21/2014 Pneumococcal Immunization (50+ years) (3 of 3 - PCV) 12/19/2014 12/19/2013, 07/05/2011 Hepatitis B Immunization (3 of 3 - Hep B Twinrix 3-dose series) 09/21/2016 04/21/2016, 08/27/2015 Respiratory Syncytial Virus (RSV) Immunization (Adult) (1 - Risk 60-74 years 1-dose series) 2020 Diabetes: Hemoglobin A1c 09/11/2024 03/14/2024, 07/0 06/2023 Influenza Immunization (#1) 2024/, 12/13/2014, 12/19/2013 SARS-COV-2 Immunization ( - 2024- season) 2024 Diabetes: Nephropathy Screening 03/13/2025 03/13/2024 Hepatitis C [...] PCR VIRAL LOAD Routine 03/15/2024 5:50 AM APPLICATIONS SYSTEM ANALYST HEMOGLOBIN A1C W/ ESTIMATED GLUCOSE Routine 03/14/2024 4:22 AM APPLICATIONS SYSTEM ANALYST CMP (COMPREHENSIVE METABOLIC PANEL) 03/13/2024 12:00 AM APPLICATIONS SYSTEM ANALYST from Last 3 Months or Most Recently Relevant to Health Maintenance Results * Hepatitis C RNA Quant PCR Viral Load (03/15/2024 5:50 AM APPLICATIONS SYSTEM ANALYST) [facility] HCV RNA QUANT PCR NON DETECTED NON DETECTED 03/15/2024 11:56 PM APPLICATIONS SYSTEM ANALYST [facility] HCV RNA QT LOG10 03/15/2024 11:56 PM APPLICATIONS SYSTEM ANALYST [facility] Comment: LOG 10 is not applicable. This test was performed using IRON 5800 Real Time PCR. Blood Venipuncture / Unknown 03/15/2024 5:50 AM APPLICATIONS SYSTEM ANALYST 03/15/2024 5:59 AM APPLICATIONS SYSTEM ANALYST us Crystal Amador MD IMMUNOLOGY ORDERABLES F inal Result [facility] [address] [place] [address], * (ABNORMAL) Hemoglobin A1C (if indicated) (03/14/2024 4:22 AM APPLICATIONS SYSTEM ANALYST) [facility] HGB-A1C 6.4(H) 4.0 - 6.0 % 03/14/2024 6:12 AM APPLICATIONS SYSTEM ANALYST [facility] Est Average Glucose 137.0 mg/dL 03/14/2024 6:12 AM APPLICATIONS SYSTEM ANALYST [facility] Blood Venipuncture / Unknown 03/14/2024 4:22 AM APPLICATIONS SYSTEM ANALYST 03/14/2024 5:45 AM APPLICATIONS SYSTEM ANALYST Narrative [facility] - 03/14/2024 6:12 AM APPLICATIONS SYSTEM ANALYST HEMOGLOBIN A1C: DIABETIC PATIENTS: WELL-CONTROLLED: 6.2 - 7.0 INTERMEDIATE WELL-CONTROLLED: 7.0 - 9.0 POORLY-CONTROLLED: >9.0 Specimens containing greater than 5% of Hemoglobin F may result in lower than expected % HbA1C results. us Jillian Castillo PARTS DEPARTMENT MANAGER, WINE MANAGER CHEMISTRY ORDERABLES Final Result Performing Organization Address City/[facility]/ZIP Co de Phone Number [facility] [place] [address] * CMP (Comprehensive Metabolic Panel) (03/13/2024 12:00 AM APPLICATIONS SYSTEM ANALYST) 03/13/2024 us Provider Scan CHEMISTRY ORDERABLES Final Resul t Performing Organization Address City/[facility]/ZIP Co de Phone Number SCAN from Last 3 Months or Most Recently Relevant to Health Maintenance Insurance [address] [place] [address] MEDICAID [place] MEDICARE Advance Directives * Full Code (Latest Code Status on File) Date Activated Date Inactivated Comments 03/13/2024 6:23 PM CPR-Full Treat ment: FULL ARREST: Attempt Resuscitation/CPR wit intubation and mechanical ventilation. PRE-ARREST: Use entire range of life support measures to stabilize the patient. Care Teams Coastal Tug Mate Relationship Specialty Start Date End Date Provider, None [place] PCP - General 03/13/24
--- OUTSIDE RECORDS SUMMARY | 2024-12-04 19:27 | XMS_ITS | Encounter Summary ---
Author Organization [facility] Address [address] [place] [address] Care Team Providers Care Lab Tester Name Role Phone Jabari Banda MD Primary Care Provider [phone] Klaus Ramos MD Unavailable [phone] Rylee Rocha MD Unavailable Sergio Ahn PA-C Unavailable [phone] Encounter Details Date Type Department Care Team (Late st Contact Info) Description 12/12/2019 Hospital Follow-up Call [facility] [address] [place], [place] [address] Jeri Youssef RN Social History Tobacco Use [...] Assigned at Female 03/23/2024 12:06 PM PUBLIC ADDRESS ANNOUNCER Legal Sex Female 3:27 AM CDT Gender Identity Female 02/11/2023 3:50 PM PUBLIC ADDRESS ANNOUNCER Sexual Orientation Not on file COVID-19 Exposure [...] Indicated Resolved Time COVID-19 Confirmed 11/25/2019 11/25/2019 12:33 AM PUBLIC ADDRESS ANNOUNCER COVID-19 Rule Out 09/25/2021 09/25/2021 09/26/2021 1:16 AM CDT COVID-19 Rule Out 10/21/2021 10/21/2021 10/22/2021 2:07 PM CDT COVID-19 Rule Out 01/08/2024 01/08/2024 01/08/2024 10:52 PM PUBLIC ADDRESS ANNOUNCER COVID-19 Rule Out 06/18/2024 06/18/2024 06/18/2024 8:01 AM CDT Respiratory Rule Out 06/18/2024 06/18/2024 04/28/2 025 8:01 AM CDT documented as of this encounter Care Teams Lab Tester Relationship Specialty Start Date End Date Jabari Banda MD [address] [place] [address] PCP - General INTERNAL MEDICINE 12/02/15 Klaus Ramos MD [address] [place] [phone] [place] Consultant Intern CARDIOVASCULAR DISEASE 07/26/18 10/05/23 Rylee Rocha MD [address] [place] [address] Consulting Physician CARDIOVASCULAR DISEASE 10/06/23 Sergio Ahn PA-C [address] [place] [phone] PHYSICIAN BRIDGE OPERATOR SLIP 11/10/23 documented as of this encounter
--- OUTSIDE RECORDS SUMMARY | 2024-12-04 19:27 | XMS_ITS | Encounter Summary ---
Author Organization [facility] Address [address] [place] [address] Care Team Providers Care Cooker Soda Name Role Phone Jabari Banda MD Primary Care Provider [phone] Klaus Ramos MD Unavailable [phone] Rylee Rocha MD Unavailable Sergio Ahn PA-C Unavailable [phone] Encounter Details Date Type Department Care Team (Latest Contact Info) Description 05/23/2023 [employer] Message Enc [facility] Cardiovascular Care Unit [address] [place] [address] Dev, [facility] Provider discharge follow up call Social History [...] Sex Assigned at Female 03/23/2024 12:06 PM FILTER TIP INSPECTOR Legal Sex Female 3:27 AM CDT Gender Identity Female 02/11/2023 3:50 PM FILTER TIP INSPECTOR Sexual Orientation Not on file documented as [...] Rule Out 01/08/2024 01/08/2024 01/08/2024 10:52 PM FILTER TIP INSPECTOR COVID-19 Rule Out 06/18/2024 06/18/2024 06/18/2024 8:01 AM CDT Respiratory Rule Out 06/18/2024 06/18/2024 025 8:01 AM CDT documented as of this encounter Care Teams Cooker Soda Relationship Specialty Start Date End Date Jabari Banda MD [address] [place] [phone] PCP - General INTERNAL MEDICINE 12/02/15 Klaus Ramos MD [address] [place] [address] [place] Poolroom Table Attendant CARDIOVASCULAR DISEASE 07/26/18 10/05/23 Rylee Rocha MD [address] [place] [address] Consulting Physician CARDIOVASCULAR DISEASE 10/06/23 Sergio Ahn PA-C [address] [place] [address] PHYSICIAN GUN NUMBER 11/10/23 documented as of this encounter
--- OUTSIDE RECORDS SUMMARY | 2024-12-04 19:27 | XMS_ITS | Encounter Summary ---
Author Organization [facility] Address [address] [place] [address] Care Team Providers Care Door Frame Builder Name Role Phone Jabari Banda MD Primary Care Provider [phone] Klaus Ramos MD Unavailable [phone] Rylee Rocha MD Unavailable Sergio Ahn PA-C Unavailable [phone] Encounter Details Date Type Department Care Team (Late st Contact Info) Description 08/16/2023 Hospital Follow-up Call [facility] Cardiovascular Care Unit [address] [place] [address] Nikki Springer, RN Social History [...] place to sleep or slept in a care home (including now)? No 05/16/2023 Housing Stability Vital Sign Answer Alex e Recorded In the last 12 months, was t here a time when you were not able to pay the mortgage or rent on time? No 08/12/2023 In the past 12 months, how m any times have you moved where you were living? 1 08/12/2023 At any time in the past 12 m [facility], were you homeless or living in a care home (including now)? No 08/12/2023 Comments No Sex and Gender Information Value Date Recorded Sex Assigned at Female 03/23/2024 12:06 PM ENFORCEMENT OFFICER Legal Sex Female 3:27 AM CDT Gender Identity Female 02/11/2023 3:50 PM ENFORCEMENT OFFICER Sexual Orientation Not on file documented as [...] Assessment Author Status No 08/12/2023 7:54 PM Gonzales Huff R N Active * Do you have serious difficulty walking or climbing stairs? Answer Date of Assessment Author Status Yes 08/12/2023 7:54 PM Gonzales Huff R N Active * Do you have difficulty dressing or bathing? Answer Date of Assessment Author Status Yes 08/12/2023 7:54 PM CDGonzales Juarez R N Active * Because of a physical, mental, or emotional condition, do you have difficulty doing errands alone such as visiting a doctor's office or shopping? Answer Date of Assessment Author Status No 08/12/2023 7:54 PM Gonzales Huff R N Active documented as of this encounter Mental Status * Because of a physical, mental, or emotional condition, do you have serious difficulty concentrating, remembering, or making decisions? Answer Entry Date Author Status No 08/12/2023 7:54 PM CDGonzales Juarez R N Active documented in this encounter Plan of Treatment Not on file documented as of this encounter Goals Goal Patient Goal Type Associated Problems Recent Progress Patient-Stated? Author Patient/family will have appropriate support at home upon discharge Lifestyle No Crystal Simms, KYLE Patient will return to prior living situation [...] Rule Out 01/08/2024 01/08/2024 01/08/2024 10:52 PM ENFORCEMENT OFFICER COVID-19 Rule Out 06/18/2024 06/18/2024 06/18/2024 8:01 AM CDT Respiratory Rule Out 06/18/2024 06/18/2024 025 8:01 AM CDT documented as of this encounter Care Teams Door Frame Builder Relationship Specialty Start Date End Date Jabari Banda MD [address] [place] [address] PCP - General INTERNAL MEDICINE 12/02/15 Klaus Ramos MD [address] [place] [address] [facility] Specialist CARDIOVASCULAR DISEASE 07/26/18 10/05/23 Rylee Rocha MD [address] [place] [address] Consulting Physician CARDIOVASCULAR DISEASE 10/06/23 Sergio Ahn PA-C [address] [place] [address] PHYSICIAN CULINARY INTERNSHIP 11/10/23 documented as of this encounter
--- OUTSIDE RECORDS SUMMARY | 2024-12-04 19:27 | XMS_ITS | Encounter Summary ---
Author Organization [facility] Address [address] [place] [address] Care Team Providers Care Die Maker Electronic Name Role Phone Jabari Banda MD Primary Care Provider [phone] Klaus Ramos MD Unavailable [phone] Rylee Rocha MD Unavailable Sergio Ahn PA-C Unavailable [phone] Encounter Details Date Type Department Care Team (Late st Contact Info) Description 05/06/2023 Hospital Orders Only [facility] [address] [place] [address] Griselda Dawson RN Anesthesia Record Procedure Summary Procedure Name Responsible Anesthesiologist Anesthesia Start Time Anesthesia Stop Time XA A-FIB ABLATION Carla Higuera MD 05/10/23 13 22 05/10/23 1835 Events Date Time Event Comment 05/10/2023 1130 1130 AN Anesthesia Prepped 1322 An Start Patient ID and consent checked and patient reassessed. 1322 An Start Data 1326 Nasal Cannula Applied 1337 Quick Note quality assurance qa lab analyst team a waiting confirmation of cardiology team. [...] 1748 Quick Note Isoproterenol s tarted by director of cardiac cath lab RN 1749 Quick Note ACT 325 1823 [...] By: Capnography, Auscultation, Chest Rise; Placed By: PHOTOSTAT OPERATOR HELPER; Extubation Assessment: Suctioned, Tolerated well, Patient spontaneously [...] Sex Assigned at Female 03/23/2024 12:06 PM TREAD BOOKER Legal Sex Female 3:27 AM CDT Gender Identity Female 02/11/2023 3:50 PM TREAD BOOKER Sexual Orientation Not on file documented as [...] Assessment Author Status Yes 10/21/2021 5:00 PM Mata Sibley RN Active * Do you have difficulty dressing or bathing? Answer Date of Assessment Author Status No 10/21/2021 5:00 PM Mata Sibley RN Active * Because of a physical, mental, or emotional condition, do you have difficulty doing errands alone such as visiting a doctor's office or shopping? Answer Date of Assessment Author Status No 10/21/2021 5:00 PM Mata Sibley RN Active documented as of this encounter Mental Status * Because of a physical, mental, or emotional condition, do you have serious difficulty concentrating, remembering, or making decisions? Answer Entry Date Author Status No 10/21/2021 5:00 PM Mata Sibley RN Active documented in this encounter Plan [...] Rule Out 01/08/2024 01/08/2024 01/08/2024 10:52 PM TREAD BOOKER COVID-19 Rule Out 06/18/2024 06/18/2024 06/18/2024 8:01 AM CDT Respiratory Rule Out 06/18/2024 06/18/2024 025 8:01 AM CDT documented as of this encounter Care Teams Die Maker Electronic Relationship Specialty Start Date End Date Jabari Banda MD [address] [place] [phone] PCP - General INTERNAL MEDICINE 12/02/15 Klaus Ramos MD [address] [place] [address] [place] Roll Mill Operator CARDIOVASCULAR DISEASE 07/26/18 10/05/23 Rylee Rocha MD [address] [place] [address] Consulting Physician CARDIOVASCULAR DISEASE 10/06/23 Sergio Ahn PA-C [address] [place] [address] PHYSICIAN GAS BRAZER 11/10/23 documented as of this encounter
--- OUTSIDE RECORDS SUMMARY | 2024-12-04 19:27 | XMS_ITS | Clinical Summary ---
Author Organization [facility] Address [address] [place] [address] Care Team Providers Care Roll Hand Name Role Phone Jabari Banda MD Primary Care Provider [phone] Christine Stevens RN Unavailable [phone] Mily Vance WEATHERIZATION AND HOUSING INSPECTOR-GRAIN UNLOADER Unavailable + Darby Del Real RN Unavailable Unavailable Kaity Bowens Unavailable Unavailable Source Comments [facility],non-owned Affiliates and Associated Physician Practices is amultiple site organization consisting of ambulatory clinics and hospital sitesin [place], [place], [place] and [place]. This disclosure is being madepursuant to the Care Everywhere program and may not contain all information available regarding this patient. Last updated 17.[facility] [employer] Allergies No known active allergies Medications [...] failure 016 Overview (08/22/2015): Added per clinical tissue specialist per dc summary Dr. Lee . 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 NURSE EMERGENCY ROOM Gender Identity Not on file Sexual Orientation [...] - Risk 60-74 years 1-dose series) 2020 DEPRESSION SCREENING 02/22/2024 COVID-19 VACCINE (1 - season) 2024 INFLUENZA VACCINE (#1) 2024 HEPATITIS C SCREENING [...] 5:40 AM CDT) Hepatitis C Virus Quantitation [id number] IU/mL 05/07/2015 9:18 AM [facility] Hepatitis C Virus Log 10 6.037 log10 IU/mL 05/07/2015 9:18 AM CDT [facility] ([facility]) Test Information Comment 05/07/2015 9:18 AM CDT [facility] Comment: The quantitative range of [...] CDT 05/04/2015 5:46 AM CDT Narrative [facility] ([facility]) - 05/07/2015 9:18 AM CDT Performed at: [address] [place] [id number] Corporate Tax Manager: Conrado Keane MD, Phone: [phone] Nunu Reynoso MD LAB - CHEMISTRY ORDERABLES Final Result [facility]) [address] [place] [address] from Last 3 Months or Most Recently [...] 2:49 PM 05/01/2015 3:17 PM Care Teams Roll Hand Relationship Specialty Start Date End Date Jabari Banda MD [address] [place] [address] PCP - General Internal Medicine 05/01/15 Christine Stevens, RN Program Writer 05/02/15 Mily Vance, WEATHERIZATION AND HOUSING INSPECTOR-GRAIN UNLOADER [address] [facility] [address] [place] [phone] Registered Nurse - Cardiopulmonary Rehab 08/04/15 Darby Del Real RN Registered Nurse - Cardiopulmonary Rehab 08/04/15 Kaity Bowens Dialysis Liaison 08/14/15
--- OUTSIDE RECORDS SUMMARY | 2024-12-04 19:27 | XMS_ITS | Encounter Summary ---
Author Organization [facility] Address [address] [place] [address] Care Team Providers Care Armored Machine Operator Name Role Phone Jabari Banda MD Primary Care Provider [phone] Klaus Ramos MD Unavailable [phone] Rylee Rocha MD Unavailable Sergio Ahn PA-C Unavailable [phone] Encounter Details Date Type Department Care Team (Late st Contact Info) Description 05/23/2023 Hospital Follow-up Call [facility] Cardiovascular Care Unit [address] [place] [address] Nikki Springer, RN Social History [...] place to sleep or slept in a residential (including now)? No 05/16/2023 Comments No Sex and Gender Information Value Date Recorded Sex Assigned at Female 03/23/2024 12:06 PM RELOCATION COUNSELOR Legal Sex Female 3:27 AM CDT Gender Identity Female 02/11/2023 3:50 PM RELOCATION COUNSELOR Sexual Orientation Not on file documented as [...] support at home upon discharge Lifestyle No Crsytal Simms, RN Patient will return to prior [...] Rule Out 01/08/2024 01/08/2024 01/08/2024 10:52 PM RELOCATION COUNSELOR COVID-19 Rule Out 06/18/2024 06/18/2024 06/18/2024 8:01 AM CDT Respiratory Rule Out 06/18/2024 06/18/2024 025 8:01 AM CDT documented as of this encounter Care Teams Armored Machine Operator Relationship Specialty Start Date End Date Jabari Banda MD [address] [place] [phone] PCP - General INTERNAL MEDICINE 12/02/15 Klaus Ramos MD [address] [place] [address] [place] Cupola Liner Helper CARDIOVASCULAR DISEASE 07/26/18 10/05/23 Rylee Rocha MD [address] [place] [address] Consulting Physician CARDIOVASCULAR DISEASE 10/06/23 Sergio Ahn PA-C [address] [place] [address] PHYSICIAN MASTER MACHINIST 11/10/23 documented as of this encounter
--- OUTSIDE RECORDS SUMMARY | 2024-12-04 19:27 | XMS_ITS | Encounter Summary ---
Author Organization [facility] Address [address] [place] [address] Care Team Providers Care Automotive General Manager Name Role Phone Jabari Banda MD Primary Care Provider [phone] Segundo Cavazos MD Unavailable Unavailab Klaus Dennis MD Unavailable [phone] Rylee Rocha MD Unavailable Sergio Ahn PA-C Unavailable [phone] Reason for Visit * Reason Onset Date Comments Follow Up Call 07/21/2018 Encounter Details Date Type Department Care Team (Late st Contact Info) Description 07/21/2018 Patient Outreach [facility] [address] [place] [address] Nikki Springer, RN Follow Up Call Social [...] Sex Assigned at Female 03/23/2024 12:06 PM OPEN HEARTH FURNACE OPERATOR HELPER Legal Sex Female 3:27 AM CDT Gender Identity Female 02/11/2023 3:50 PM OPEN HEARTH FURNACE OPERATOR HELPER Sexual Orientation Not on file documented as [...] 12:11 PM Anahy Irvin RN Active * Do you have difficulty [...] CDT COVID-19 Confirmed 11/25/2019 11/25/2019 12:33 AM OPEN HEARTH FURNACE OPERATOR HELPER COVID-19 Rule Out 11/25/2019 11/25/2019 11/26/2019 12:00 PM CDT COVID-19 Rule Out 09/25/2021 09/25/2021 09/26/2021 1:16 AM CDT COVID-19 Rule Out 10/21/2021 10/21/2021 10/22/2021 2:07 PM CDT COVID-19 Rule Out 01/08/2024 01/08/2024 01/08/2024 10:52 PM OPEN HEARTH FURNACE OPERATOR HELPER COVID-19 Rule Out 06/18/2024 06/18/2024 06/18/2024 8:01 AM CDT Respiratory Rule Out 06/18/2024 06/18/2024 025 8:01 AM CDT documented as of this encounter Care Teams Automotive General Manager Relationship Specialty Start Date End Date Jabari Banda MD [address] [place] [phone] PCP - General INTERNAL MEDICINE 12/02/15 Segundo Cavazos MD [address] [place] [address] CARDIOVASCULAR DISEASE 12/02/15 07/25/18 Klaus Ramos MD [address] [place] [phone] [facility] CARDIOVASCULAR DISEASE 07/26/18 10/05/23 Rylee Rocha MD [address] [place] [address] Consulting Physician CARDIOVASCULAR DISEASE 10/06/23 Sergio Ahn PA-C [address] [place] [address] PHYSICIAN LOCAL GOVERNMENT LEGISLATOR 11/10/23 documented as of this encounter
--- OUTSIDE RECORDS SUMMARY | 2024-12-04 19:27 | XMS_ITS | Encounter Summary ---
Author Organization [facility] Address [facility] [place] [address] Care Team Providers Care Solar Installer Name Role Phone Jabari Banda MD Primary Care Provider [phone] Klaus Ramos MD Unavailable [phone] Rylee Rocha MD Unavailable Sergio Ahn PA-C Unavailable [phone] Encounter Details Date Type Department Care Team (Late st Contact Info) Description 04/29/2023 Hospital Orders Only [employer] Account Manager Pre/Post [address] [place] [address] Adithya Owens MD [address] [facility] [address] [id number] Social History Tobacco Use Types Packs/Day Years [...] Sex Assigned at Female 03/23/2024 12:06 PM HOME PLANNING CONSULTANT SALESPERSON Legal Sex Female 3:27 AM CDT Gender Identity Female 02/11/2023 3:50 PM HOME PLANNING CONSULTANT SALESPERSON Sexual Orientation Not on file documented as [...] Assessment Author Status Yes 10/21/2021 5:00 PM KISHAT Mata Bean RN Active * Do you [...] Rule Out 01/08/2024 01/08/2024 01/08/2024 10:52 PM HOME PLANNING CONSULTANT SALESPERSON COVID-19 Rule Out 06/18/2024 06/18/2024 06/18/2024 8:01 AM CDT Respiratory Rule Out 06/18/2024 06/18/2024 025 8:01 AM CDT documented as of this encounter Care Teams Solar Installer Relationship Specialty Start Date End Date Jabari Banda MD [address] [place] [address] PCP - General INTERNAL MEDICINE 12/02/15 Klaus Ramos MD [address] [place] [phone] [place] Ladies Attendant CARDIOVASCULAR DISEASE 07/26/18 10/05/23 Rylee Rocha MD [address] [place] [address] Consulting Physician CARDIOVASCULAR DISEASE 10/06/23 Sergio Ahn PA-C [address] [place] [address] PHYSICIAN METALLURGICAL ANALYST 11/10/23 documented as of this encounter
--- OUTSIDE RECORDS SUMMARY | 2024-12-04 19:27 | XMS_ITS | Encounter Summary ---
Author Organization [facility] Address [address] [place] [address] Care Team Providers Care Senior Mechanical Project Manager Name Role Phone Jabari Banda MD Primary Care Provider [phone] Rylee Rocha MD Unavailable Sergio Ahn PA-C Unavailable [phone] Encounter Details Date Type Department Care Team (Late st Contact Info) Description 06/25/2024 Hospital Follow-up Call [facility] Cardiovascular Care Unit [address] [place] [address] Nikki Springer RN Social History Tobacco Use Types Packs/Day Years Used Date Smoking Tobacco: Former Cigarettes 1 30 0 1985 - 05/30/2015 Smokeless Tobacco: Never Comments:Dont smoke Alcohol Use Standard Drinks/Week Comments Not Currently 0 (1 standard drink = 0.6 oz pur e alcohol) Social [facility] Utilities Answer Date Recorded In the past 12 months has e electric, gas, oil, or water [employer] threatened to shut off services in your [...] place to sleep or slept in a usp (including now)? No 05/16/2023 Housing Stability Vital Sign Answer Alex e Recorded In the last 12 months, was t here a time when you were not able to pay the mortgage or rent on time? No 06/18/2024 In the past 12 months, how m any times have you moved where you were living? 1 06/18/2024 At any time in the past 12 m [facility], were you homeless or living in a usp (including now)? No 06/18/2024 Comments No Sex and Gender Information Value Date Recorded Sex Assigned at Female 03/23/2024 12:06 PM MANAGER PAPER Legal Sex Female 3:27 AM CDT Gender Identity Female 02/11/2023 3:50 PM MANAGER PAPER Sexual Orientation Not on file documented as of this encounter Functional Status * Are you deaf or do you have serious difficulty hearing Answer Date of Assessment Author Status No 06/18/2024 5:12 PM CDT Lili Reynoso , Nurse Boarder Hand II Active * Are you blind or do you have serious difficulty seeing, even when wearing glasses? Answer Date of Assessment Author Status No 06/18/2024 5:12 PM CDT Lili Reynoso , Nurse Boarder Hand II Active * Do you have serious difficulty walking or climbing stairs? Answer Date of Assessment Author Status No 06/18/2024 5:12 PM CDT Lili Reynoso , Nurse Boarder Hand II Active * Do you have difficulty dressing or bathing? Answer Date of Assessment Author Status No 06/18/2024 5:12 PM CDT Lili Reynoso , Nurse Boarder Hand II Active * Because of a physical, mental, or emotional condition, do you have difficulty doing errands alone such as visiting a doctor's office or shopping? Answer Date of Assessment Author Status No 06/18/2024 5:12 PM CDT Lili Reynoso , Nurse Boarder Hand II Active documented as of this encounter Mental Status * Because of a physical, mental, or emotional condition, do you have serious difficulty concentrating, remembering, or making decisions? Answer Entry Date Author Status No 06/18/2024 5:12 PM CDT Lili Reynoso , Nurse Boarder Hand II Active documented in this encounter Plan [...] on filedocumented in this encounter Care Teams Senior Mechanical Project Manager Relationship Specialty Start Date End Date Jabari Banda MD [address] [place] [address] PCP - General INTERNAL MEDICINE 12/02/15 Rylee Rocha MD [address] [place] [address] Consulting Physician CARDIOVASCULAR DISEASE 10/06/23 Sergio Ahn PA-C [address] [place] [address] PHYSICIAN CAPACITY PLANNING ENGINEER 11/10/23 documented as of this encounter
--- OUTSIDE RECORDS SUMMARY | 2024-12-04 19:27 | XMS_ITS | Encounter Summary ---
Author Organization [facility] Address [address] [place] [address] Care Team Providers Care Dynamics Ax Developer Name Role Phone Jabari Banda MD Primary Care Provider [phone] Klaus Ramos MD Unavailable [phone] Rylee Rocha MD Unavailable Sergio Ahn PA-C Unavailable [phone] Encounter Details Date Type Department Care Team (Late st Contact Info) Description 10/01/2021 Hospital Follow-up Call [facility] Cardiovascular Care Unit [address] [place] [address] Nikki pSringer, RN Social History Tobacco Use Types Packs/Day [...] Sex Assigned at Female 03/23/2024 12:06 PM UNDERCUTTER OPERATOR Legal Sex Female 3:27 AM CDT Gender Identity Female 02/11/2023 3:50 PM UNDERCUTTER OPERATOR Sexual Orientation Not on file COVID-19 Exposure [...] Indicated Resolved Time COVID-19 Rule Out 10/21/2021 10/21/2021 10/22/2021 2:07 PM CDT COVID-19 Rule Out 01/08/2024 01/08/2024 01/08/2024 10:52 PM UNDERCUTTER OPERATOR COVID-19 Rule Out 06/18/2024 06/18/2024 06/18/2024 8:01 AM CDT Respiratory Rule Out 06/18/2024 06/18/2024 025 8:01 AM CDT documented as of this encounter Care Teams Dynamics Ax Developer Relationship Specialty Start Date End Date Jabari Banda MD [address] [place] [phone] PCP - General INTERNAL MEDICINE 12/02/15 Klaus Ramos MD [address] [place] [address] [place] Nitrogen Operator CARDIOVASCULAR DISEASE 07/26/18 10/05/23 Rylee Rocha MD [address] [place] [address] Consulting Physician CARDIOVASCULAR DISEASE 10/06/23 Sergio Ahn PA-C [address] [place] [address] PHYSICIAN RESOLUTION REP 11/10/23 documented as of this encounter
--- OUTSIDE RECORDS SUMMARY | 2024-12-04 19:27 | XMS_ITS | Encounter Summary ---
Author Organization [facility] Address [address] [place] [address] Care Team Providers Care Lens And Frames Prescription Clerk Name Role Phone Jabari Banda MD Primary Care Provider [phone] Klaus Ramos MD Unavailable [phone] Rylee Rocha MD Unavailable Sergio Ahn PA-C Unavailable [phone] Encounter Details Date Type Department Care Team (Latest Contact Info) Description 08/16/2023 [employer] Message Enc [facility] Cardiovascular Care Unit [address] [place] [address] Dev, [facility] Provider discharge follow up call [...] place to sleep or slept in a senior living (including now)? No 05/16/2023 Housing Stability Vital Sign Answer Alex e Recorded In the last 12 months, was t here a time when you were not able to pay the mortgage or rent on time? No 08/12/2023 In the past 12 months, how m any times have you moved where you were living? 1 08/12/2023 At any time in the past 12 m [facility], were you homeless or living in a senior living (including now)? No 08/12/2023 Comments No Sex and Gender Information Value Date Recorded Sex Assigned at Female 03/23/2024 12:06 PM CORPORATE ADMINISTRATOR Legal Sex Female 3:27 AM CDT Gender Identity Female 02/11/2023 3:50 PM CORPORATE ADMINISTRATOR Sexual Orientation Not on file documented as [...] Assessment Author Status No 08/12/2023 7:54 PM CDGonzales Juarez R N Active documented as of this [...] Rule Out 01/08/2024 01/08/2024 01/08/2024 10:52 PM CORPORATE ADMINISTRATOR COVID-19 Rule Out 06/18/2024 06/18/2024 06/18/2024 8:01 AM CDT Respiratory Rule Out 06/18/2024 06/18/2024 025 8:01 AM CDT documented as of this encounter Care Teams Lens And Frames Prescription Clerk Relationship Specialty Start Date End Date Jabari Banda MD [address] [place] [address] PCP - General INTERNAL MEDICINE 12/02/15 Klaus Ramos MD [address] [place] [address] [place] Dumping Machine Operator CARDIOVASCULAR DISEASE 07/26/18 10/05/23 Rylee Rocha MD [address] [place] [address] Consulting Physician CARDIOVASCULAR DISEASE 10/06/23 Sergio Ahn PA-C [address] [place] [address] PHYSICIAN FIELD OPERATIONS TECHNICIAN 11/10/23 documented as of this encounter
--- OUTSIDE RECORDS SUMMARY | 2024-12-04 19:27 | XMS_ITS | Encounter Summary ---
Author Organization [facility] Address [address] [place] [address] Care Team Providers Care Manager Of Digital Name Role Phone Jabari Banda MD Primary Care Provider [phone] Christine Stevens RN Unavailable [phone] Mily Vance BIOINFORMATICS ASSOCIATE-TRAVEL FREIGHT AND PASSENGER AGENT Unavailable + Darby Del Real RN Unavailable Unavailable Kaity Bowens Unavailable Unavailable Encounter Details Date Type Department Care Team (Late st Contact Info) Description 08/11/2015 Transitional Care [facility] DISEASE MANAGEMENT [address] [place] [address] Darby Del Real RN Social History Tobacco Use Types Packs/Day Years Used Date Smoking Tobacco: Former Cigarettes Q uit: 05/02/2015 Alcohol Use Standard Drinks/Week Comments Not Asked 0 (1 standard drink = 0.6 oz pur e alcohol) Comments No Sex and Gender Information Value Date Recorded Sex Assigned at Not on file Legal Sex Female 9:41 AM LOAN CLOSER Gender Identity Not on file Sexual Orientation Not on file documented as of this encounter Functional Status * Functional and Cognitive Status Question Answer Date of Assessment Author Is person deaf or have amy us hearing difficulty? No 08/12/2015 12:53 AM Jillian Patrick RN Is person blind or have seri ous difficulty seeing? No 08/12/2015 12:53 AM Jillian Patrick RN Does person have serious difficulty walking/climbing stairs? Yes 08/12/2015 12:53 AM Jillian Patrick RN Does person have difficulty dressing/bathing? No 08/12/2015 12:53 AM Jillian Patrick RN Does person have difficulty doing errands alone? No 08/12/2015 12:53 AM Jillian Patrick RN Does person have difficulty concentrating/remembering/making decisions? No 08/12/2015 12:53 AM Jillian Patrick RN * Is person deaf or have serious [...] Millan RN * Does person have difficulty doing [...] on filedocumented in this encounter Care Teams Manager Of Digital Relationship Specialty Start Date End Date Jabari Banda MD [address] [place] [address] PCP - General Internal Medicine 05/01/15 Christine Stevens, RN Logging Tractor Operator Swamp 05/02/15 Mily Vance APRN-TRAVEL FREIGHT AND PASSENGER AGENT [address] [facility] [address] [address] Registered Nurse - Cardiopulmonary Rehab 08/04/15 Nasima, Darby, RN Registered Nurse - Cardiopulmonary Rehab 08/04/15 Kaity Bowens Dialysis Liaison 08/14/15 documented as of this encounter
--- OUTSIDE RECORDS SUMMARY | 2024-12-04 19:28 | XMS_ITS | Clinical Summary ---
Author Organization [facility] Address [address] [place] [address] Care Team Providers Care Manager Camp Name Role Phone Jabari Banda MD Primary Care Provider [phone] Rylee Rocha MD Unavailable Sergio Ahn PA-C Unavailable [phone] Allergies No known active allergies Medications clopidogrel (PLAVIX) 75 MG tabletIndications: blood thinner Take 1 tablet (75 mg total) by mouth daily. Indications: blood thinner 11/16/19 14 Active atorvastatin 20 MG tabletIndications: Hypercholesterolem ia Take 1 tablet (20 mg total) by mouth nightly. Indications: High Amount of Cholesterol in the Blood Active paroxetine 40 MG tablet Take 1 tablet (40 mg total) by mouth daily. anxiety Active hydrocodone-acetam inophen 7.5-325 MG tablet Take 1 tablet by [...] tablet by mouth daily. 10/31/19 22 Active ipratropium-albute rol (DUONEB) 0.5-2.5 (3) MG/3ML Solution Take 3 [...] daily. 05/01/19 24 Active OXYGEN CONCENTRATOR SUPPLY, DME,Indications:CH F (congestive heart failure) (CMS/[facility]ER[facility] HHS/HCC),Acute asthma exacerbation (HHS/HCC),Pulmonar y hypertension (CMS/FORMERLY [facility] HHS/HCC) 1 Device by Nasal route continuous. Nasal Cannula. 3L with activity and nocturnal. Portable Tanks needed. Stationary Concentrator. 1 Device 05/19/19 24 Active [facility]ME,Indications:CH F (congestive heart failure) (CMS/HCC HHS/HCC),Acute asthma exacerbation (HHS/HCC),Pulmonar y hypertension ([facility]/HCC HHS/HCC) 1 Device by Does not apply route as needed. 4 wheeled walker with basket for SOBOE. 1 Device 05/19/19 24 Active albuterol sulfate HFA 108 (90 Base) MCG/ACT inhaler Inhale 2 puffs into the lungs 4 (four) times daily as needed. 07/27/19 24 Active Nebulizers (XENIA LC PLUS NEBULIZER) [facility] USE WITH NEBULIZER DAILY 07/28/19 24 Active [...] (20 mg total) by mouth daily. 03/16/19 Active dilTIAZem ER (DILT-XR) 180 MG 24 hr capsule Take 1 capsule (180 mg total) by mouth daily. 30 capsule 6 06/02/19 Active NOVOLOG MIX 70/30 FLEXPEN 100 unit/mL injection (PEN) Inject 30 Units into the skin 2 (two) times daily before meals. INJECT 30 UNITS UNDER THE SKIN EVERY MORNING AND EVENING 18 mL 06/16/19 Active amLODIPine (NORVASC) 5 MG tablet Take 1 tablet (5 mg total) by mouth daily. 09/01/19 Active ondansetron (ZOFRAN-ODT) 4 MG disintegrating tablet Take 1 tablet (4 mg total) by mouth every 8 (eight) hours as needed for Nausea. 30 tablet 09/24/19 Active Active Problems Problem Noted Date Diagnosed Date Nausea and vomiting 07/16/2024 Pneumonia 06/18/2024 Bacterial pneumonia 06/18/2024 Acute encephalopathy 06/13/2024 Atypical atrial flutter 11/10/2023 S/P ablation of atrial fibrillation 11/10/2023 Atrial fibrillation with RVR 08/12/2023 Hypertension with fluid overload 05/16/2023 Fluid overload 05/16/2023 Chronic anticoagulation 05/09/2023 Paroxysmal atrial fibrillation 03/08/2023 Pericarditis 10/24/2021 Rapid atrial fibrillation 10/21/2021 Atrial fibrillation with rapid ventricular respo nse 10/21/2021 Acute ME 09/25/2021 Acute myocardial infarction 09/25/2021 COVID-19 11/26/2019 Acute asthma exacerbation 06/19/2019 Chest wall pain 07/10/2018 CHF (congestive heart failure) 07/09/2018 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 12/16/2015 Hypertension 12/16/2015 Hyperlipidemia, mixed 12/16/2015 ESRD on hemodialysis 12/16/2015 H/O: CVA (cerebrovascular accident) 12/16/2015 ESRD (end stage renal disease) 08/17/2015 Morbid obesity 08/17/2015 Diabetic nephropathy 05/05/2015 Sleep apnea Overview (09/22/2020): testing positive;had machine-didn't use it often enough,so it was taken away Resolved Problems Problem Noted Date Diagnosed Date Resolved Date Acute viral pericarditis 10/24/202104/2021 Encounters Date Type Department Care Team Description 11/26/2024 11:25 AM CDT - 11/26/2024 1:07 PM CDT Emergency [place] [address] [place] [address] Tyree Hall MD Hypertension; Confusion Discharge Disposition: Left Against Medical Advice 11/26/2024 Travel 11/22/2024 Orders Only [facility] [address] [place] [address] Adithya Owens MD 11/21/2024 Telephone [facility] [address] [place] [address] Sergio Ahn PA-C Appointment Reminder 10/03/2024 Telephone [facility] [address] [place] [address] Sergio Ahn PA-C Follow Up 09/27/2024 10:38 PM CDT - 09/28/2024 12:25 AM CDT Emergency [facility] [address] [place] [address] Hypoglycemia Discharge Disposition: Home or Self Care (Routine Discharge) 09/27/2024 Travel 09/23/2024 6:59 PM CDT - 09/23/2024 10:41 PM CDT Emergency [facility] Emergency [address] [place] [address] Angelo Nava MD Abdominal Pain Discharge Disposition: Home or Self Care (Routine Discharge) 09/23/2024 Travel 09/04/2024 Telephone [facility] [address] [place] [address] Rylee Rocha MD Reschedule 09/03/2024 11:45 AM CDT - 09/03/2024 2:32 PM CDT Emergency [facility] [address] [place] [address] Jamie Schumacher MD Abdominal Pain Discharge Disposition: Home or Self Care (Routine Discharge) 09/03/2024 Travel from Last 3 Months Immunizations Immunization [...] = 0.6 oz pur e alcohol) Social [facility] Utilities Answer Date Recorded In the past 12 months has e [employer], gas, oil, or water [employer] threatened to shut off services in your [...] any time in the past 12 m [facility], were you homeless or living in a long term (including now)? No 06/18/2024 Comments No Sex and Gender Information Value Date Recorded Sex Assigned at Female 03/23/2024 12:06 PM EQUITY HOLDER Legal Sex Female 3:27 AM CDT Gender Identity Female 02/11/2023 3:50 PM EQUITY HOLDER Sexual Orientation Not on file Last Filed Vital Signs Vital Sign Reading Time Taken Comments Blood Pressure 205/82 11/26/2024 11:32 AM CDT Pulse 79 11/26/2024 11:32 AM CDT Temperature 36.7 C (98 F) 11/26/2024 11:32 AM CDT Respiratory Rate 18 11/26/2024 11:3 2 AM CDT Oxygen Saturation 96% 11/26/2024 11: 32 AM CDT Inhaled Oxygen Concentration - - Weight 81.6 kg (179 lb 14.3 oz) 025 11:32 AM CDT Height 165.1 cm (5' 5) 11/26/2024 11:3 2 AM CDT Body Mass Index 29.94 11/26/2024 11:32 AM CDT Plan of Treatment Health Maintenance [...] series) 2020 COVID-19 Vaccine ( - season) 2024 Influenza Adult (#1) 2024 10/21/2015, 12/13/2014, 12/19/2013 Hemoglobin A1C 12/13/2024 06/13/2024, 02/22, 08/26/2023, Additional [...] if needed Medical Devices Implanted Type Area Therapy Tech Device Identifier Shelf Expiration Date Model / Serial / Lot Graft Graft Description:Left arm fistula Iol Burt Sn60wf - [id number] Implanted:Qty: 1 on 02/07/2018 by Basim Moore MD at [facility] Lens Right: Eye [employer] 10/21/2022 SN60WF / [id number] / N/A Description:Implant verified by Iol Burt Sn60wf - [id number] Implanted:Qty: 1 on 03/07/2018 by Basim Moore MD at [facility] Lens Left: Eye [employer] 10/21/2022 SN60WF / [id number] / N/A Description:Lens verified pe r surgeon and chart Procedures Procedure Name Priority Date/Time Associated Diagnosis Comments XR CHEST PORTABLE STAT 11/26/2024 12: 25 PM CDT ECG 12-LEAD Routine 11/26/2024 12:[address] HEAD WO CON STAT 11/26/2024 12:[address] HEAD WO CON STAT 09/27/2024 11:27 [...] W/DIFF AUTOMATED STAT 09/03/2024 12:[address] CHEST+ABD+PEL WO CON STAT 07/17/19 7:34 AM CDT LIPID PANEL Routine 06/14/2024 4:23 AM CDT HEMOGLOBIN, GLYCOSYLATED STAT 06/13/2024 8:25 AM CDT HEPATITIS PANEL,ACUTE STAT 11/26/2019 12:09 PM CDT from Last 3 Months or Most Recently Relevant to Health Maintenance Results * XR CHEST PORTABLE (11/26/2024 12:25 PM CDT) Only the most recent of2 resultswithin the time period is included. Anatomical Region Laterality Modality Chest Radiographic Jesica ging 11/26/2024 12:0 4 PM CDT Impressions 11/26/2024 12:16 PM CDT IMPRESSION: 1. Improved congestive changes with residual. 2. No consolidation. 3. Stable cardiomegaly. Ordered By: TYREE HALL Interpreted By: Jerardo Singleton MD, 11/26/2024 12:04 PM Narrative 11/26/2024 12:16 PM CDT [address] [place] [address] Examination: Portable chest. Exam time: 1155 hours. Clinical history: Dyspnea. Confusion. Weakness. Comparison: 09/27/2024. Technique: AP upright view. Findings: Allowing for differences in projection and rotation, the cardiomediastinal silhouette is stable. The heart remains enlarged. Pulmonary vascular congestion and perivascular haziness, suggesting interstitial edema, have improved although not yet resolved. Opacity at the lung bases, likely pleural effusion and subsegmental atelectasis, has also improved. There is no gross consolidation. The visualized bony thorax is stable. Old healed left fourth rib fracture again evident. Procedure Note Jerardo Singleton MD - 11/26/[address] [place] [address] Examination: Portable chest. Exam time: 1155 hours. Clinical history: Dyspnea. Confusion. Weakness. Comparison: 09/27/2024. Technique: AP upright view. Findings: Allowing for differences in projection and rotation, thecardiomediastinal silhouette is stable. The heart remains enlarged.Pulmonary vascular congestion and perivascular haziness, suggestinginterstitial edema, have improved although not yet resolved. Opacity atthe lung bases, likely pleural effusion and subsegmental atelectasis, hasalso improved. There is no gross consolidation. The visualized bony thoraxis stable. Old healed left fourth rib fracture again evident. IMPRESSION: 1. Improved congestive changes with residual. 2. No consolidation. 3. Stable cardiomegaly. Ordered By: TYREE HALL Interpreted By: Jerardo Singleton MD, 11/26/2024 12:04 PM Tyree Hall MD GENERAL IMAGING Final Result * ECG 12 lead (11/26/2024 12:10 PM CDT) Only the most recent of2 resultswithin the time period is included. 11/26/2024 12:1 0 PM CDT Narrative [facility] - 11/30/2024 1:45 PM CDT [address] [place] [place] [address] Test Date: 2024-11-26 Pat Name: [facility] Department: 3 Room: EXAM 404 Gender: Female Business Analyst Manager: : 1960 Requested By: TYREE HALL Order Number: [id number] Tanai MD: Adithya Owens Measurements Intervals Raymond Rate: 77 P: -30 CA: 189 QRS: -44 QRSD: 89 T: 132 QT: 402 QTc: 455 Interpretive Statements SINUS RHYTHM LEFT AXIS DEVIATION (POOR R WAVE PROGRESSION) NON-SPECIFIC ST-T WAVE ABNORMALITY Procedure Note Adithya Owens MD - 11/30/[address] [place] [place] [address] Test Date: 2024-11-26 Pat Name: [facility] Department: 3 Room: EXAM 404 Gender: Female Business Analyst Manager: : 1960 Requested By: TYREE HALL Order Number: [id number] Reading MD: Adithya Owens Measurements Intervals Raymond Rate: 77 P: -30 CA: 189 QRS: -44 QRSD: 89 T: 132 QT: 402 QTc: 455 Interpretive Statements SINUS RHYTHM LEFT AXIS DEVIATION (POOR R WAVE PROGRESSION) NON-SPECIFIC ST-T WAVE ABNORMALITY Tyree Hall MD ECG ORDERABLES Final Result [facility] * CT HEAD WO CON (11/26/2024 12:04 PM CDT) Only the most recent of2 resultswithin the time period is included. Anatomical Region Laterality Modality Head Computed Tomogra phy 11/26/2024 12:0 8 PM CDT Impressions 11/26/2024 12:12 PM CDT IMPRESSION: 1. No acute intracranial process identified. 2. Stable cortical atrophy, small vessel disease and chronic infarct as described. Ordered By: TYREE HALL Interpreted By: Jerardo Singleton MD, 11/26/2024 12:08 PM Narrative 11/26/2024 12:12 PM CDT [address] [place] [address] Examination: CT of the head without contrast. Exam time: 1202 hours. Clinical history: Alteration of consciousness. Confusion. Weakness. Comparison: 09/27/2024. Technique: Noncontrast axial scans from skull base to vertex. Sagittal and coronal reconstructions were performed from the data set. A dose lowering technique was used for this procedure, which may include, but is not limited to, dose reduction techniques, automated exposure control, the use of iterative reconstruction and ALARA/Image Gently techniques. Findings: There is prominence of the ventricles, fissures and sulci, somewhat greater than anticipated for age, compatible with mild diffuse cortical atrophy. This is unchanged. No shift of midline or mass effect is noted. There is stable periventricular decreased attenuation, compatible with small vessel disease. There is stable focal hypodensity in the left thalamus compatible with chronic lacunar infarct. 4 No new areas of abnormal x-ray attenuation are identified. In particular, there is no mass, hemorrhage or sign of acute stroke. No extracerebral fluid collections. The mastoid air cells and paranasal sinuses appear clear. Procedure Note Jerardo Singleton MD - 11/26/2024 [place] [id number] [place] [address] Examination: CT of the head without contrast. Exam time: 1202 hours. Clinical history: Alteration of consciousness. Confusion. Weakness. Comparison: 09/27/2024. Technique: Noncontrast axial scans from skull base to vertex. Sagittal andcoronal reconstructions were performed from the data set. A dose loweringtechnique was used for this procedure, which may include, but is notlimited to, dose reduction techniques, automated exposure control, the useof iterative reconstruction and ALARA/Image Gently techniques. Findings: There is prominence of the ventricles, fissures and sulci,somewhat greater than anticipated for age, compatible with mild diffusecortical atrophy. This is unchanged. No shift of midline or mass effect isnoted. There is stable periventricular decreased attenuation, compatiblewith small vessel disease. There is stable focal hypodensity in the leftthalamus compatible with chronic lacunar infarct. 4 No new areas of abnormal x-ray attenuation are identified. Inparticular, there is no mass, hemorrhage or sign of acute stroke. Noextracerebral fluid collections. The mastoid air cells and paranasalsinuses appear clear. IMPRESSION: 1. No acute intracranial process identified. 2. Stable cortical atrophy, small vessel disease and chronic infarct asdescribed. Ordered By: TYREE HALL Interpreted By: Jerardo Singleton MD, 11/26/2024 12:08 PM Tyree Hall MD CT Final Result * (ABNORMAL) PARTIAL THROMBOPLASTIN TIME,PTT (09/27/2024 11:02 PM CDT) PTT 24.0(L) 25.1 - 36.5 SEC 09/27/2024 11:16 PM CDT [facility] 09/27/2024 11:0 2 PM CDT us Arsalan Blas DO LABORATORY Final Result Performing Organization Address [facility] Co de Phone Number [facility] [address] [place] [address], * PROTIME/INR, VENOUS (09/27/2024 11:02 PM CDT) PROTIME 11.5 9.4 - 12.5 SEC 09/27/2024 11:16 PM CDT [facility] INR 1.0 0.8 - 1.0 09/27/2024 11:16 PM CDT [facility] 09/27/2024 11:0 2 PM CDT us Arsalan Blas DO LABORATORY Final Result Performing Organization Address [facility] Co de Phone Number [facility] [address] [place] [address], [place] [phone] * (ABNORMAL) COMPREHENSIVE METABOLIC PANEL (09/27/2024 11:02 PM CDT) Only the most recent of3 resultswithin the time period is included. SODIUM S/P/B 132(L) 136 - 145 MMOL/L 09/27/2024 11:49 PM CDT [facility] POTASSIUM S/P/B 3.3(L) 3.5 - 5.1 MMOL/L 09/27/2024 11:49 PM CDT [facility] CHLORIDE S/P/B 98 98 - 107 MMOL/L 09/27/2024 11:49 PM CDT [facility] CO2 25.5 21.0 - 32.0 MMOL/L 09/27/2024 11:49 PM CDT [facility] GLUCOSE 128(H) 70 - 99 MG/DL 09/27/2024 11:49 PM CDT [facility] Comment: FASTING GLUCOSE 100 TO 125 MG/DL IS CONSISTENT WITH IMPAIRED FASTING GLUCOSE. FASTING GLUCOSE >125 MG/DL IS CONSISTENT WITH DIABETES. RANDOM GLUCOSE >200 MG/DL WITH HYPERGLYCEMIC SYMPTOMS IS CONSISTENT WITH DIABETES. PER ADA GUIDELINES BUN 16 6 - 24 MG/DL 09/27/2024 11:49 PM [facility] CREATININE S/P/B 5.83(H) 0.55 - 1.02 MG/DL 09/27/2024 11:49 PM [facility] CALCIUM S/P/B 10.2 8.4 - 10.5 MG/DL 09/27/2024 11:49 PM [facility] BILIRUBIN TOTAL S/P/B 0.3 0.2 - 1.0 MG/DL 09/27/2024 11:49 PM [facility] Comment: THIS ASSAY IS NOT RECOMMENDED FOR PATIENTS UNDERGOING TREATMENT WITH ELTROMBOPAG DUE TO THE POTENTIAL FOR FALSELY ELEVATED RESULTS. ALKALINE PHOSPHATASE S/P/B 70 50 - 130 U/L 09/27/2024 11:49 PM [facility] AST 14(L) 15 - 37 U/L 09/27/2024 11:49 PM [facility] ALT 11(L) 14 - 59 U/L 09/27/2024 11:49 PM [facility] TOTAL PROTEIN S/P/B 6.9 6.4 - 8.2 G/DL 09/27/2024 11:49 PM [facility] ALBUMIN S/P/B 3.2(L) 3.4 - 5.0 G/DL 09/27/2024 11:49 PM [facility] ANION GAP 8.5 5.0 - 15.0 MMOL/L 09/27/2024 11:49 PM [facility] OSMOLALITY (CALC) 277 MOSM/KG 025 11:49 PM [facility] Comment:REFERENCE RANGE NOT ESTABLISHED GFR ESTIMATE 8(L) >89 ML/MIN/1. 73 M2 09/27/2024 11:49 PM [facility] GFR NOTES GFR REFERENCE S: 09/27/2024 11:49 PM CDT [facility] Comment: THE ESTIMATED GFR [...] us Arsalan Blas DO LABORATORY Final Result [facility] [address] [place] [address], * (ABNORMAL) CBC W/DIFF AUTOMATED (09/27/2024 11:02 PM CDT) Only the most recent of3 resultswithin the time period is included. WBC 17.36(H) 4.00 - 10.80 x10'3/uL 09/27/2024 11:14 PM CDT [facility] RBC 4.28 4.10 - 5.40 x10'6/uL 09/27/2024 11:14 PM CDT [facility] HGB 12.2 12.0 - 16.0 G/DL 09/27/2024 11:14 PM CDT [facility] HCT 37.0 36.0 - 47.0 % 09/27/2024 11:14 PM CDT [facility] MCV 86.4 78.0 - 100.0 FL 09/27/2024 11:14 PM CDT [facility] MCH 28.5 27.0 - 31.0 PG 09/27/2024 11:14 PM CDT [facility] MCHC 33.0 33.0 - 36.0 G/DL 09/27/2024 11:14 PM CDT [facility] RDW 13.4 11.5 - 14.5 % 09/27/2024 11:14 PM CDT [facility] PLT 302 150 - 350 x10'3/uL 09/27/2024 11:14 PM CDT [facility] MPV 9.7 7.4 - 10.4 FL 09/27/2024 11:14 PM CDT [facility] CBC COMMENT NORMAL REFERENCE RANGE NOT ESTABLISHED FOR THE PROPORTIONAL LEUKOCYTE DIFFERENTIAL. 09/27/2024 11:14 PM CDT [facility] NEUTROPHILS % 93.5 % 09/27/2024 11:34 PM CDT [facility] LYMPHOCYTES % 2.1 % 09/27/2024 11:34 PM CDT [facility] MONOCYTES % 3.4 % 09/27/2024 11:34 PM CDT [facility] EOSINOPHILS % 0.1 % 09/27/2024 11:34 PM CDT [facility] BASOPHILS % 0.5 % 09/27/2024 11:34 PM CDT [facility] IMMATURE GRANS % 0.4 % 09/28/19 11:34 PM CDT [facility] NRBC % 0.0 % 09/27/2024 11:34 PM CDT [facility] ABS. NEUTROPHILS 16.23(H) 1.60 - 8.30 x10'3/uL 09/27/2024 11:34 PM CDT [facility] ABS. LYMPHOCYTES 0.36(L) 0.80 - 4.70 x10'3/uL 09/27/2024 11:34 PM CDT [facility] ABS. MONOCYTES 0.59 0.00 - 1.50 x10'3/uL 09/27/2024 11:34 PM CDT [facility] ABS. EOSINOPHILS 0.02 0.00 - 0.40 x10'3/uL 09/27/2024 11:34 PM CDT [facility] ABS. BASOPHILS 0.09 0.00 - 0.20 x10'3/uL 09/27/2024 11:34 PM CDT [facility] ABS. IMMATURE GRANULOCYTES 0.07(H) 0.00 - 0.03 x10'3/uL 09/27/2024 11:34 PM CDT [facility] ABS. NUCLEATED RBC'S 0.00 0.00 - 0.01 x10'3/uL 09/27/2024 11:34 PM CDT [facility] PLT MORPH. NORMAL 09/27/2024 11:34 PM CDT [facility] RBC MORPHOLOGY NORMAL 09/27/2024 11:34 PM CDT [facility] 09/27/2024 11:0 2 PM CDT us Arsalan Blas [place] [id number], * AMYLASE (09/27/2024 11:02 PM CDT) AMYLASE S/P/B 48 25 - 115 UNITS/L 09/27/2024 11:49 PM CDT [facility] 09/27/2024 11:0 2 PM CDT us Arsalan Blas DO LABORATORY Final Result [facility] [address] [place] [address], * LIPASE (09/27/2024 11:02 PM CDT) Only the most recent of3 resultswithin the time period is included. LIPASE 25 16 - 77 UNITS/L 09/27/2024 11:49 PM CDT [facility] 09/27/2024 11:0 2 PM CDT us Arsalan Blas DO LABORATORY Final Result Performing Organization Address [facility]/ZIP Co de Phone Number [facility] [address] [place] [address], * (ABNORMAL) POCT glucose (09/27/2024 10:26 PM CDT) GLUCOSE POC 104(H) 70 - 99 MG/DL 09/27/2024 11:40 PM CDT [facility] 09/27/2024 10:2 6 PM CDT Attending Physician Emergency MD POCT ORDERABLES - DEVICE Final Result Performing Organization Address [facility] Co de Phone Number [facility] [address] [place] [address], * TROPONIN, QUANT (09/23/2024 9:29 PM CDT) Only the most recent of2 resultswithin the time period is included. [facility] TROPONIN I HIGH SENSITIVITY 51 0 - 53 ng/L 09/23/2024 9:59 PM CDT [facility] 09/23/2024 9:29 PM CDT Angelo Nava MD LABORATORY Final Result Performing Organization Address [facility] Co de Phone Number [facility] [address] [place] [address], [place] [phone] * CT ABD+PEL W IV CON ONLY [...] 8:18 PM Narrative 09/23/2024 9:45 PM CDT [place] [address] Examination: CT abdomen and pelvis with IV [...] atelectasis. Few small scattered calcified granulomas.Partially visualized [id number] right-sided pleural effusion. Small left-sided pleural effusion [...] Procedure Note Hank Samano MD - 09/23/2024 [place] [address] Examination: CT abdomen and pelvis with IV [...] to atelectasis. Few smallscattered calcified granulomas.Partially visualized [id number]-sided pleural effusion. Small left-sided pleural effusion ispartially [...] By: Minesh Her MD, 09/23/2024 8:18 PM Angelo Nava MD CT Final Result * [...] 12:55 PM Narrative 09/03/2024 1:27 PM CDT [address] [place] [address] Examination: CT of the abdomen and pelvis [...] Procedure Note Jerardo Singleton MD - 09/03/2024 [facility] [address] [place] [address] Examination: CT of the abdomen and pelvis [...] Jamie Schumacher MD CT Final Result * CT CHEST+ABD+PEL WO CON [...] 7:44 AM Narrative 07/16/2024 8:18 AM CDT [address] [place] [address] EXAMINATION: CT CHEST+ABD+PEL WO CON, 07/16/2024 7:44 [...] Procedure Note Hank Samano MD - 07/16/2024 [facility] [address] [place] [address] EXAMINATION: CT CHEST+ABD+PEL WO CON, 07/16/2024 7:44 [...] CHOLESTEROL 234 MG/DL 06/14/2024 5:08 AM CDT [facility] Comment:BORDERLINE HIGH: 200 -239 TRIGLYCERIDES 198 MG/DL 06/14/2024 5:08 AM CDT [facility] Comment:150-199 BORDERLINE H IGH HDL 60 >49 MG/DL 06/14/2024 5:08 AM CDT [facility] LDL (CALCULATED) 134 MG/DL 06/15/19 5:08 AM CDT [facility] Comment:130-159 BORDERLINE H IGH VLDL CALCULATION 40 MG/DL 06/15/19 5:08 AM CDT [facility] Comment:REFERENCE RANGE NOT ESTABLISHED CHOL/HDL RATIO 3.9 06/14/2024 5:08 AM CDT [facility] Comment:REFERENCE RANGE NOT ESTABLISHED LDL/HDL 2.2 06/14/2024 5:08 AM CDT [facility] Comment:REFERENCE RANGE NOT ESTABLISHED NON HDL CHOLESTEROL 174 MG/DL 06/14/2024 5:08 AM CDT [facility] Comment:REFERENCE RANGE NOT ESTABLISHED 06/14/2024 4:23 AM CDT Kellee Johnson MD LABORATORY Final Resul t Performing Organization Address City/State/[facility] Co de Phone Number [facility] [address] [place] [address], [id number] * (ABNORMAL) HEMOGLOBIN, GLYCATED (06/13/2024 8:25 AM CDT) Pathologist [facility] HGB A1C 6.7(H) <5.7 % 06/13/2024 2:54 PM CDT [facility] ESTIMATED AVG GLUCOSE 146(H) 74 - 114 MG/DL 06/13/2024 2:54 PM CDT [facility] 06/13/2024 8:25 AM CDT Ami Campo NP LABORATORY Final Result Performing Organization Address City/[facility] Co de Phone Number [facility] [address] [place] [address], [id number] * (ABNORMAL) HEPATITIS PANEL,ACUTE (11/26/2019 12:09 PM CDT) HEPATITIS B SURFACE AG NON-REACT REFUGIO NON-REACT REFUGIO 11/27/2019 1:29 AM CDT [facility] Comment:HBsAg NOT DETECTED. HEP B CORE IGM NON-REACT REFUGIO NON-REACT REFUGIO 11/27/2019 1:29 AM CDT [facility] Comment: IgM ANTI HBc NOT DETECTED. DOES NOT EXCLUDE THE POSSIBILITY OF EXPOSURE TO OR INFECTION WITH HBV. NO RETEST REQUIRED. HIGH DOSES OF BIOTIN MAY INTERFERE WITH THIS TEST RESULT. CORRELATION TO CLINICAL HISTORY AND PRESENTATION RECOMMENDED. HAV IGM NON-REACT REFUGIO NON-REACT REFUGIO 11/27/2019 1:29 AM CDT [facility] Comment: IgM ANTI HAV NOT DETECTED. DOES NOT EXCLUDE THE POSSIBILITY OF EXPOSURE TO OR INFECTION WITH HAV. LEVELS OF IgM ANTI HAV MAY BE BELOW THE CUTOFF IN EARLY INFECTION. HEPATITIS C AB REACTIVE( A) NON-REACT REFUGIO 11/27/2019 1:29 AM CDT [facility] Comment: PRESUMPTIVE EVIDENCE OF ANTIBODIES TO HCV. CONSIDER ORDERING HCV RNA DETECTION AND QUANTIFICATION BY RT-PCR ANALYSIS ON A NEW SPECIMEN. 11/26/2019 12:0 9 PM CDT Marlyn Robin MD LABORATORY Final Result [facility] [address] [place] [address], [id number] from Last 3 Months or Most Recently Relevant to Health Maintenance Insurance [address] [place] [address] MEDICAID MEDICARE [address] [place] [address] MEDICARE MEDICAID MEDICAID MEDICARE Advance Directives * [...] 11:40 AM 05/20/2023 4:01 PM Care Teams Manager Camp Relationship Specialty Start Date End Date Jabari Banda MD [address] [place] [id number] PCP - General INTERNAL MEDICINE 12/02/15 Rylee Rocha MD [address] [place] [address] Consulting Physician CARDIOVASCULAR DISEASE 10/06/23 Sergio Ahn PA-C [address] [place] [address] PHYSICIAN PROJECT DEVELOPMENT ENGINEER 11/10/23
--- OUTSIDE RECORDS SUMMARY | 2024-12-04 19:28 | XMS_ITS | Encounter Summary ---
Author Organization [facility] Address [address] [place] [address] Care Team Providers Care Engagement Specialist Name Role Phone Jabari Banda MD Primary Care Provider [phone] Klaus Ramos MD Unavailable [phone] Rylee Rocha MD Unavailable Sergio Ahn PA-C Unavailable [phone] Encounter Details Date Type Department Care Team (Late st Contact Info) Description 08/18/2022 MyChart Message Enc [facility] [address] [place], [place] [id number] Mychart, [facility] Provider Air Quality Message Social History Tobacco [...] Sex Assigned at Female 03/23/2024 12:06 PM STAGE DIRECTOR Legal Sex Female 3:27 AM CDT Gender Identity Female 02/11/2023 3:50 PM STAGE DIRECTOR Sexual Orientation Not on file COVID-19 [...] Rule Out 01/08/2024 01/08/2024 01/08/2024 10:52 PM STAGE DIRECTOR COVID-19 Rule Out 06/18/2024 06/18/2024 06/18/2024 8:01 AM CDT Respiratory Rule Out 06/18/2024 06/18/2024 025 8:01 AM CDT documented as of this encounter Care Teams Engagement Specialist Relationship Specialty Start Date End Date Jabari Banda MD [address] [place] [address] PCP - General INTERNAL MEDICINE 12/02/15 Klaus Ramos MD [address] [place] [phone] [place] Web Content Developer CARDIOVASCULAR DISEASE 07/26/18 10/05/23 Rylee Rocha MD [address] [place] [id number] Consulting Physician CARDIOVASCULAR DISEASE 10/06/23 Sergio Ahn PA-C [address] [place] [phone] PHYSICIAN [place]E MACHINE OPERATOR 11/10/23 documented as of this encounter
[2024-12-04 20:15] LABS: Hematocrit 37.3 % (35.0-49.0); Hemoglobin 12.5 g/dL (12.0-15.0); Immature Granulocyte Percent A 0.4 % (0.0-0.0); Lymphocytes Absolute Auto 0.88 K/mm3 (1.10-4.50); Mean Corpuscular HGB Conc 33.5 g/dL (32-36); Mean Corpuscular Hemoglobin 29.4 pg (27.0-31.0); Mean Corpuscular Volume 87.8 fL (78.0-102.0); Nucleated Red Blood Cells Absolute Auto 0.00 K/mm3 (0.00-0.00); Nucleated Red Blood Cells Perc 0.0 % (0-0.0); Platelet Count Result 279 K/mm3 (150-420); Red Blood Count 4.25 M/mm3 (4.20-5.40); White Blood Count 14.5 K/mm3 (4.8-10.8)
[2024-12-04 20:27] LABS: Alanine Aminotransferase 13 U/L (6-35); Albumin Level 4.4 g/dL (3.5-5.1); Alkaline Phosphatase 67 U/L (38-126); Anion Gap 13 mmol/L (4-12); Aspartate Amino Transferase 24 U/L (14-36); Bilirubin,Total 0.9 mg/dL (0.2-1.3); Blood Urea Nitrogen 33 mg/dL (7-17); Calcium 10.5 mg/dL (8.4-10.2); Carbon Dioxide 27 mmol/L (22-30); Chloride 92 mmol/L (98-107); Estimated CRCL calculation 6 ml/min; Estimated Glomerular Filt Rate 4; Glucose 172 mg/dL (65-110); Osmolality Calculated 285 mOsm/kg (285-295); Potassium 4.4 mmol/L (3.4-5.0); Sodium 132 mmol/L (137-145); Total Protein 8.3 g/dL (6.3-8.2)
[2024-12-04 20:28] LABS: INR 0.9; Prothrombin Time 10.3 Seconds (9.50-12.1)
--- NOTE | 2024-12-04 20:39 | PC.NURSE ---
ERP aware of pt's vital signs. No new orders.
--- NOTE | 2024-12-04 21:14 | ED_ITS ---
HPI - General Adult General Chief complaint: Weakness Stated complaint: N/V/D; weakness Time Seen by Provider: 12/04/24 18:50 Source: patient and family Mode of arrival: EMS Limitations: no limitations History of Present Illness HPI narrative: 64-year-old with a history of ESRD on hemodialysis here with a complains of marked weakness and confusion since last 1 hour. was at bedside states that she missed dialysis last week as she does not feeling too well. No history of fever or chills denies any chest pain or shortness of breath. Has been states that her blood pressure was elevated at home. And she has not been taking her medication because of nausea. She is scheduled for dialysis tomorrow Onset (ago): day(s) (2) Severity: moderate Relieving factors: none Exacerbating factors: none Associated symptoms: denies other symptoms Related Data Home Medications ?Medication ?Instructions ?Recorded ?Confirmed ?Last Taken ?Type atorvastatin 20 mg tablet 20 mg PO HS 06/17/19 5 10/22/24 History clopidogrel 75 mg tablet 75 mg PO DAILY 06/17/1904/1710/22/24 History hydrocodone 7.5 mg-acetaminophen 1 tablet PO QID PRN P ain 06/17/19 10/23/24 10/22/24 History 325 mg tablet insulin aspar prot-insulin aspart 35 unit subcut BID 0 06/17/19 10/23/24 10/08/24 History 100 unit/mL (70-30) subcutaneous pen (Novolog Mix 70-30FlexPen U-100) levothyroxine 175 mcg tablet 175 mcg PO DAILY 06/17/19 10/23/24 10/22/24 History paroxetine HCl 40 mg tablet 40 mg PO DAILY 06/17/1910/22/24 History sevelamer carbonate 800 mg tablet See Rx Instructions .Route .COMPLEX 06/17/19 10/23/24 10/22/24 History montelukast 10 mg tablet 10 mg PO DAILY 01/02/2104/1710/22/24 History vitamin B complex-vitamin C-folic 0.8 tablet PO DAILY 01/02/21 10/23/24 10/22/24 History acid 0.8 mg tablet (Deepa-Vikash) apixaban 5 mg tablet (Eliquis) 5 mg PO Q12H 10/08/24 0 10/23/24 10/22/24 History diltiazem HCl 180 mg 180 mg PO Q24H 10/08/24 09/04/1710/22/24 History capsule,extended release 24 hr, controlled (DILT-XR) umeclidinium 62.5 mcg-vilanterol 1 inh inhalation Q24H 10/08/24 10/23/24 10/22/24 History 25 mcg/actuation powdr for inhalation (Anoro Ellipta) Allergies Allergy/AdvReac Type Severity Reaction Status Date / Time No Known Allergies Allergy Verified 12/04/24 19:11 Review of Systems 2 Review of Systems: All systems reviewed & are unremarkable except as noted in HPI and below Constitutional: Constitutional: Reports no additional constitutional complaints Eyes: Eyes: Reports no additional eye complaints ENT: Reports system reviewed and no additional complaints, except as documented Cardiovascular: Cardiovascular: Reports no additional cardiovascular complaints Respiratory: Respiratory: Reports no additional respiratory complaints Gastrointestinal: Gastrointestinal: Reports as per HPI Musculoskeletal: Musculoskeletal: Reports no additional musculoskeletal complaints Neurologic: Reports system reviewed and no additional complaints, except as documented [facility] Past Medical History Medical History CHF (congestive heart failure) Anxiety and depression History of CVA (cerebrovascular accident) VIJAY (obstructive sleep apnea) CAD (coronary artery disease) Hypothyroidism Other chronic pain Incomplete tear of left rotator cuff Chronic left shoulder pain Anemia Hypertension Hyperlipidemia ESRD (end stage renal disease) on dialysis COPD (chronic obstructive pulmonary disease) Diabetes mellitus Surgical History Surgical History S/P cholecystectomy History of thyroid surgery History of x2 Hx of appendectomy Family History Family History Father Diabetes mellitus Hypertension Cerebrovascular accident Family history of arthritis Family history of malignant neoplasm Mother Family history of malignant neoplasm Family history of diabetes mellitus in first degree relative Social History Social History Smoking packs per day: 0.5 Smoking cigarettes per day: 10.0 Years smoked: 20 Smoking pack-years: 10.00 Smoking status: Former smoker Tobacco type: cigarettes Second hand tobacco smoke exposure: No Alcohol intake: former Substance use: never Substance use type: former substance user and marijuana Lack of Transportation: No Lack of Food: Never True Current Housing: I Have Housing Concerned About Future Housing: No Difficulty Paying Gas/Electric Bills: No Difficulty Paying for Meds: No Currently Unemployed: No Education: Associate Degree Difficulty w/ Childcare or Family Care: No Living arrangements: with family Spiritual care concerns: No Exam 2 Narrative: GENERAL: Well-appearing, well-nourished, and in no acute distress. HEAD: Normocephalic, atraumatic. EYES: PERRLA and EOMI. ENT: Nares clear, no rhinorrhea or epistaxis. Mucous membranes moist. NECK: Supple. CHEST: Clear to auscultation. No respiratory distress. HEART: Regular rate and rhythm. No murmur heard. Normal peripheral pulses. ABDOMEN: Soft, nontender, nondistended, normal active bowel sounds. EXTREMITIES: Normal range of motion. No edema. SKIN: Warm, dry, no rash. NEURO: No focal deficits. Alert and oriented x3. PSYCH: Normal mood and affect. Course Course Emergency Course: patient had no further episodes of nausea vomiting while she is here in the ER. Informed her and her about her lab work, CT, EKG findings. She is hemodynamically stable can be discharged home and dialysis in the morning. Vital Signs Vital signs: Vital Signs Temperature 36.6 C 12/04/24 18:45 Pulse Rate 84 12/04/24 18:45 Respiratory Rate 22 H 12/04/24 18:45 Blood Pressure 208/90 H 12/04/24 18:45 Pulse Oximetry 97 12/04/24 18:45 Oxygen Delivery Room Air 12/04/24 18:45 Temperature 36.6 C 12/04/24 18:45 Pulse Rate 78 12/04/24 20:35 Respiratory Rate 16 12/04/24 20:35 Blood Pressure 163/93 H 12/04/24 20:35 Pulse Oximetry 98 12/04/24 20:35 Oxygen Delivery Room Air 12/04/24 18:45 Medical Decision Making Differential Diagnosis Differential Diagnosis: Sepsis, dehydration Medical Records Medical records reviewed: Yes I reviewed the external patient's medical records. Vital Signs Vital Signs: Vital Signs Temperature 36.6 C 12/04/24 18:45 Pulse Rate 84 12/04/24 18:45 Respiratory Rate 22 H 12/04/24 18:45 Blood Pressure 208/90 H 12/04/24 18:45 Pulse Oximetry 97 12/04/24 18:45 Oxygen Delivery Room Air 12/04/24 18:45 Temperature 36.6 C 12/04/24 18:45 Pulse Rate 78 12/04/24 20:35 Respiratory Rate 16 12/04/24 20:35 Blood Pressure 163/93 H 12/04/24 20:35 Pulse Oximetry 98 12/04/24 20:35 Oxygen Delivery Room Air 12/04/24 18:45 Lab Data Lab results reviewed: Yes I reviewed the patient's lab results. 12/04/24 20:05 12/04/24 20:05 Labs: Lab Results 12/04/24 Range/Units 20:05 WBC 14.5 H (4.8-10.8) K/mm3 RBC 4.25 (4.20-5.40) M/mm3 Hgb 12.5 (12.0-15.0) g/dL Hct 37.3 (35.0-49.0) % MCV 87.8 (78.0-102.0) fL MCH 29.4 (27.0-31.0) pg MCHC 33.5 (32-36) g/dL RDW 13.6 (11.6-14.4) % Plt Count 279 (150-420) K/mm3 MPV 9.7 (9.2-11.8) fl Immature Gran % (Auto) 0.4 H (0.0-0.0) % Neut % (Auto) 87.1 H (50.0-70.0) % Lymph % (Auto) 6.1 L (18.0-42.0) % Preston % (Auto) 5.7 (2.0-11.0) % Eos % (Auto) 0.2 L (1.0-6.0) % Baso % (Auto) 0.5 (0.0-1.0) % Lymph # (Auto) 0.88 L (1.10-4.50) K/mm3 Preston # (Auto) 0.82 (0.10-0.90) K/mm3 Eos # (Auto) 0.03 (0.02-0.50) K/mm3 Baso # (Auto) 0.07 (0.00-0.10) K/mm3 Abs Immat Gran (auto) 0.06 H (0.00-0.00) K/mm3 Absolute Neuts (auto) 12.62 H (1.70-7.20) K/mm3 Absolute Nucleated RBC 0.00 (0.00-0.00) K/mm3 Nucleated RBC % 0.0 (0-0.0) % PT 10.3 (9.50-12.1) Seconds INR 0.9 Sodium 132 L (137-145) mmol/L Potassium 4.4 (3.4-5.0) mmol/L Chloride 92 L (98-107) mmol/L Carbon Dioxide 27 (22-30) mmol/L Anion Gap 13 H (4-12) mmol/L BUN 33 H D (7-17) mg/dL Creatinine 9.32 H (0.7-1.0) mg/dL Estim Creat Clear Calc 6 ml/min Estimated GFR 4 L (59 - ) Glucose 172 H (65-110) mg/dL Calculated Osmolality 285 (285-295) mOsm/kg Calcium 10.5 H (8.4-10.2) mg/dL Total Bilirubin 0.9 (0.2-1.3) mg/dL AST 24 (14-36) U/L ALT 13 (6-35) U/L Alkaline Phosphatase 67 (38-126) U/L Total Protein 8.3 H (6.3-8.2) g/dL Albumin 4.4 (3.5-5.1) g/dL Imaging Data Radiologist's impression: ITS Impressions Head CT 12/04/24 20:41 IMPRESSION: No acute intracranial hemorrhage or extra axial fluid collections. All CT scans at this facility are performed using low dose modulation techniques as appropriate to perform exam including the following: automated exposure control; use of iterative reconstruction technique; adjustment of the mA and/or kV according to patient size (this includes techniques or standardized protocols for targeted exams where dose is matched to indication/reason for exam). Chest X-Ray 12/04/24 20:44 IMPRESSION: Groundglass opacities are noted bilaterally with small bilateral pleural effusions. ECG Data EKG #1: ECG completion date: 12/04/24 ECG completion time: 19:08 EKG Interpretation: normal rate (82), sinus rhythm, no ectopy, normal QRS and no acute changes Discharge Plan Discharge Clinical Impression: Weakness, End-stage renal disease (ESRD) Patient Disposition: Home Condition: Stable Instructions: Weakness (ED) Additional Instructions: continue home medications , follow with your doctor Patient Language: Georgian Prescriptions: No Action montelukast 10 mg tablet 10 mg PO DAILY Deepa-Vikash 0.8 mg tablet 0.8 tablet PO DAILY levothyroxine 175 mcg tablet 175 mcg PO DAILY atorvastatin 20 mg tablet 20 mg PO HS clopidogrel 75 mg tablet 75 mg PO DAILY hydrocodone-acetaminophen 7.5-325 mg tablet 1 tablet PO QID PRN (Reason: Pain) paroxetine HCl 40 mg tablet 40 mg PO DAILY insulin asp prt-insulin aspart [Novolog Mix 70-30FlexPen U-100] 100 unit/mL (70-30) insulin pen 35 unit SUBCUT BID Patient Comments: Patient has not been taking due to decreased appetite. sevelamer carbonate 800 mg tablet See Rx Instructions .ROUTE .COMPLEX Patient Comments: Takes with meals Rx Instructions: take as prescribed Eliquis 5 mg tablet 5 mg PO Q12H diltiazem HCl [DILT-XR] 180 mg capsule,ext.rel 24h degradable 180 mg PO Q24H umeclidinium-vilanterol [Anoro Ellipta] 62.5-25 mcg/actuation blister with device 1 inh INHALATION Q24H pantoprazole [Protonix] 40 mg tablet,delayed release (DR/EC) 40 mg PO HS 28 Days Qty: 28 0RF ondansetron 4 mg tablet,disintegrating 4 mg PO Q8H PRN (Reason: nausea and vomiting) Qty: 20 0RF metoclopramide HCl 10 mg tablet 10 mg PO TIDWM Qty: 90 0RF Patient Comments: Before meals lisinopril 10 mg Tablet 10 mg PO QAM Qty: 30 0RF hydrocodone-acetaminophen 7.5-325 mg tablet 1 tablet PO Q8H PRN (Reason: pain) Qty: 6 0RF Follow-up/Referrals: Jabari Banda MD [Primary Care Provider, Internal Medicine] Time of Disposition: 22:03
[2024-12-04] MEDS: ONDANSETRON HCL ODT 4 MG TABLET PO (21:18)
[2024-12-04] MEDS: dilTIAZem HCL CD 120 MG CAP.24HR PO (21:20)
--- NOTE | 2024-12-04 22:30 | PC.NURSE ---
ERP aware of pt's vitals. No new orders before discharge.
--- NOTE | 2024-12-08 13:31 | PC.NURSE ---
preliminary blood cultures x2 reviewed. no growth in 24 hours.
--- NOTE | 2024-12-09 17:06 | PC.NURSE ---
preliminary blood cultures x2 reviewed. no growth in 48 hours.
== END 2024-12-04 22:30 | disposition home or self-care (01) ==
PROVIDERS: Emergency Provider Family Medicine; PCP Internal Medicine
DX: R53.1 Weakness (principal); I13.2 Hypertensive heart and chronic kidney disease with heart failure and with stage 5 chronic kidney disease, or end stage renal disease; N18.6 End stage renal disease; I50.9 Heart failure, unspecified; E03.9 Hypothyroidism, unspecified; Z86.73 Personal history of transient ischemic attack (TIA), and cerebral infarction without residual deficits; Z87.891 Personal history of nicotine dependence
CPT/HCPCS: 36415; 70450; 71045; 80053; 85025; 85610; 93005; 99284; A9270; J0360; J7040

== ENCOUNTER 2024-12-10 12:50 | Emergency (ER) | payer MEDICARE, MEDICAID, SELFPAY ==
[2024-12-10] VITALS (7 sets, daily range): BP systolic 140–203; BP diastolic 57–88; PULSE 72–87; RESP 18–20; TEMP 36.6; O2SAT 96–100
--- NOTE | ~2024-12-10 | CT_ITS ---
CT ABDOMEN AND PELVIS WITHOUT CONTRAST Clinical History: epigastric/periumbilical abdominal pain, ESRD HD Comparison: CT abdomen and pelvis 10/23/2024 Technique: Unenhanced axial images lung bases to symphysis pubis Coronal, sagittal reformats CT images acquired with automatic exposure control for dose reduction DLP: 817 mGy-cm Findings: Without intravenous contrast, sensitivity for detecting visceral parenchymal abnormalities decreased. Lung bases: Large right and moderate left pleural effusions. 10 mm nodule right infrahilar. Right middle lobe scarring with calcification. Right lower lobe atelectasis. Visualized heart and pericardium: Coronary artery calcification. Liver: Enlarged. Multiple punctate calcifications. Gallbladder: Absent. Spleen: Multiple punctate calcifications. Pancreas: Unremarkable. Adrenal glands: Unremarkable. Kidneys: Atrophic. Right kidney- No hydronephrosis. Vascular calcifications and/or stones. Left kidney- No hydronephrosis. Vascular calcifications and/or stones. Distal esophagus/stomach: Unremarkable. Small bowel loops: Normal caliber and wall thickness. Fluid-filled loops. Colon: Diffuse wall thickening. Appendix not identified. Nodes: No enlarged nodes. Peritoneum: No ascites. No free intraperitoneal air. Urinary bladder: Unremarkable. Uterus: Unremarkable. Adnexa: No masses. Bones: No acute bony abnormality. Soft tissues: Unremarkable. Unopacified abdominal aorta: No aneurysmal dilatation. Atherosclerotic disease. IMPRESSION: 1. Colitis. 2. No other acute abnormality within abdomen or pelvis. 3. Large right and moderate left pleural effusions. Reviewed, dictated and finalized at location R.
--- NOTE | 2024-12-10 13:17 | ED.GENADULT ---
HPI - General Adult General Chief complaint: Abdominal Pain Stated complaint: abdominal pain Time Seen by Provider: 12/10/24 12:51 Source: patient and other (significant other) Mode of arrival: ambulatory Limitations: altered mental status History of Present Illness HPI narrative: The patient is a 64-year-old woman with history of end-stage renal disease on hemodialysis, Tuesday, hypertension, atrial fibrillation on apixaban, gastroparesis, CHF, diabetes, COPD, obstructive sleep apnea, coronary artery disease, hypothyroidism, prior section appendectomy and cholecystectomy. The patient was seen on 12/04/2024 for similar complaints as today: Weakness and confusion. She missed her medications due to not feeling well with nausea at the time. Head CT 6 days ago was unremarkable for any acute findings. Chest x-ray revealed ground-glass opacities with small bilateral pleural effusions at the time. EKG did not reveal any major abnormalities. She was in sinus rhythm. She was diagnosed with weakness and end-stage renal disease and discharged home. The patient underwent dialysis today. She went home. She complained that she needed to have a bowel movement. She had a small watery bowel movement. The significant other was concerned that the patient was more disoriented than usual, with an increase alteration of mental status compared to baseline after dialysis sessions. She did complain of epigastric abdominal discomfort which she continues to complain of now. No vomiting or nausea. No fevers or chills. No chest pain, no motor or sensory deficits. No headache. Related Data Home Medications ?Medication ?Instructions ?Recorded ?Confirmed ?Last Taken ?Type atorvastatin 20 mg tablet 20 mg PO HS 06/17/19 10/23/24 10/22/24 History clopidogrel 75 mg tablet 75 mg PO DAILY 06/17/19 10/23/24 10/22/24 History hydrocodone 7.5 mg-acetaminophen 1 tablet PO QID PRN Pain 06/17/19 10/23/24 10/22/24 History 325 mg tablet insulin aspar prot-insulin aspart 35 unit subcut BID 06/17/19 10/23/24 10/08/24 History 100 unit/mL (70-30) subcutaneous pen (Novolog Mix 70-30FlexPen U-100) levothyroxine 175 mcg tablet 175 mcg PO DAILY 06/17/19 10/23/24 10/22/24 History paroxetine HCl 40 mg tablet 40 mg PO DAILY 06/17/19 10/23/24 10/22/24 History sevelamer carbonate 800 mg tablet See Rx Instructions .Route .COMPLEX 06/17/19 10/23/24 10/22/24 History montelukast 10 mg tablet 10 mg PO DAILY 01/02/21 10/23/24 10/22/24 History vitamin B complex-vitamin C-folic 0.8 tablet PO DAILY 01/02/21 10/23/24 10/22/24 History acid 0.8 mg tablet (Deepa-Vikash) apixaban 5 mg tablet (Eliquis) 5 mg PO Q12H 10/08/24 10/23/24 10/22/24 History diltiazem HCl 180 mg 180 mg PO Q24H 10/08/24 10/23/24 10/22/24 History capsule,extended release 24 hr, controlled (DILT-XR) umeclidinium 62.5 mcg-vilanterol 1 inh inhalation Q24H 10/08/24 10/23/24 10/22/24 History 25 mcg/actuation powdr for inhalation (Anoro Ellipta) Allergies Allergy/AdvReac Type Severity Reaction Status Date / Time No Known Allergies Allergy Verified 12/10/24 13:01 Review of Systems Review of Systems: All systems reviewed & are unremarkable except as noted in HPI and below Constitutional: Constitutional: Denies chills, Denies excessive sweating, Reports fatigue (Typical after her dialysis sessions), Denies fever(s), Denies headache(s) and Reports weakness (generalized; Typical after her dialysis sessions) Eyes: Eyes: Denies change in vision and Denies photophobia ENT: Denies dysphagia, Denies dizziness, Denies headache(s), Denies lip swelling, Denies nasal congestion, Denies sore throat and Denies tongue swelling Cardiovascular: Cardiovascular: Denies chest pain, Denies syncope, Denies rapid heart rate and Denies dyspnea Respiratory: Respiratory: Denies cough, Denies dyspnea and Denies wheezing Gastrointestinal: Gastrointestinal: Reports abdominal pain, Reports constipation, Denies dysphagia, Denies diarrhea, Denies nausea and Denies vomiting Musculoskeletal: Musculoskeletal: Denies back pain, Denies myalgias, Denies arthralgias, Denies joint swelling and Denies numbness Integumentary/Breasts: Skin/Breast: Denies pruritus, Denies erythema and Denies rash Neurologic: Reports confusion, Denies dizziness, Denies syncope, Denies headache(s), Denies focal weakness and Denies numbness Psychiatric: Psychiatric: Denies anxiety and Denies homicidal ideation Endocrine: Endocrine: Denies excessive sweating Hematologic/Lymphatic: Hematologic/Lymphatic: Denies easy bleeding and Denies easy bruising Allergic/Immunologic: Allergic/Immunologic: Denies lip swelling, Denies tongue swelling and Denies wheezing PMFSH Past Medical History Medical History CHF (congestive heart failure) Anxiety and depression History of CVA (cerebrovascular accident) VIJAY (obstructive sleep apnea) CAD (coronary artery disease) Hypothyroidism Other chronic pain Incomplete tear of left rotator cuff Chronic left shoulder pain Anemia Hypertension Hyperlipidemia ESRD (end stage renal disease) on dialysis COPD (chronic obstructive pulmonary disease) Diabetes mellitus Surgical History Surgical History S/P cholecystectomy History of thyroid surgery History of x2 Hx of appendectomy Family History Family History Father Diabetes mellitus Hypertension Cerebrovascular accident Family history of arthritis Family history of malignant neoplasm Mother Family history of malignant neoplasm Family history of diabetes mellitus in first degree relative Social History Social History Smoking packs per day: 0.5 Smoking cigarettes per day: 10.0 Years smoked: 20 Smoking pack-years: 10.00 Smoking status: Former smoker Tobacco type: cigarettes Second hand tobacco smoke exposure: No Alcohol intake: former Substance use: never Substance use type: former substance user and marijuana Lack of Transportation: No Lack of Food: Never True Current Housing: I Have Housing Concerned About Future Housing: No Difficulty Paying Gas/Electric Bills: No Difficulty Paying for Meds: No Currently Unemployed: No Education: Associate Degree Difficulty w/ Childcare or Family Care: No Living arrangements: with family Spiritual care concerns: No Exam Const: General: healthy appearing, no acute distress, alert and well nourished Nutritional Appearance: well nourished Orientation/consciousness: patient oriented x3 Limitations: altered mental status (and confusion) HENMT: Head: normal to inspection Ears: external ears normal Face/Nose/Sinus: normal facial exam Face and sinus: normal facial exam Mouth: Yes moist mucous membranes Throat: posterior oropharynx normal Eyes: Conjunctivae: conjunctivae normal Pupils: Equal, round and reactive pupils present EOM: EOMs intact bilaterally Neck: Neck: normal visual inspection and no meningeal signs Chest: Chest palpation & inspection: normal inspection of the chest and no tenderness Resp: Effort & Inspection: normal respiratory effort and not labored Auscultation: clear to auscultation bilaterally, no crackles, no rhonchi and no wheezes Cardio: Rate: regular rate Rhythm: regular rhythm Heart sounds: no murmurs GI: Inspection: non-distended GI Palp: Yes Soft to palpation, Yes Tenderness to palpation present (GI) (minimal tenderness at the umbilical area, no peritoneal signs), No Guarding due to palpation present (GI) and No Rebound tenderness present Other: no abdominal distention or tympany. No cva tenderness. : General: Yes no CVA tenderness Back/Spine/Pelvis: Back: no CVA tenderness Cervical Spine: No Cervical spine tenderness Thoracic/Lumbar Spine: No thoracic spinal tenderness Skin: General skin exam: normal color Rashes: no rashes Wounds: no wounds Neuro: General: patient oriented x3, moves all extremities, no meningeal signs, no focal motor deficits and CN's II-XI intact bilaterally Cranial nerves: Yes Equal, round and reactive pupils present Speech: normal speech Motor exam (neuro): 5/5 motor strength present throughout Sensory Exam: normal sensation Extrem: General: normal to inspection and no clubbing, cyanosis or edema Psych: Mental Status: mental status grossly normal Affect: normal affect Course Course Emergency Course: 64-year-old female with generalized weakness, confusion, altered mental status, shortly after undergoing dialysis today. She also complains of mild diffuse abdominal discomfort in the upper abdomen. She was seen here 12/04/2024, 6 days ago, for similar neurologic symptoms but without abdominal pain. Workup at that time was unremarkable and she was discharged home. Repeat the labs and obtain a CT of the abdomen without contrast. She looks well, and is hemodynamically stable. 14:45: The white blood cell count is normal, hemoglobin hematocrit are similar to previous values at 11.8 and 34.9. Platelets normal. CMP is pending. COVID-19 influenza and RSV are negative. CT imaging shows thickening of the colon, bilateral pleural effusions, but other significant findings. The patient is out of her Gallant prescription for approximately 1 week. She normally takes 2 tablets of 5 mg hydrocodone 325 mg acetaminophen on a daily basis. She has ran out a week ago. This likely is exacerbating her pain symptoms which are nonspecific. Gallant 1 tablet was ordered here in the emergency room. 15:18: The sodium is somewhat low at 129, but similar to previous values of 132 on 12/04/2024 in 129 on 10/27/2024. BUN and creatinine are acceptable after dialysis today, BUN 6 creatinine 4.3. Potassium is 3.6, chloride 97, bicarbonate 26, magnesium 1.9, LFTs acceptable and normal, albumin 3.4, all acceptable in a dialysis patient. Will discharge home on Gallant for few tablets until she can follow-up with her PCP for additional refills. There is no fecal impaction or significant fecal load on the CT imaging of the colon. The patient is agreeable with the plan. All questions answered. Vital Signs Vital signs: Vital Signs Temperature 36.6 C 12/10/24 12:51 Pulse Rate 87 12/10/24 12:51 Respiratory Rate 20 12/10/24 12:51 Blood Pressure 144/72 H 12/10/24 12:51 Pulse Oximetry 100 12/10/24 12:51 Oxygen Delivery Room Air 12/10/24 12:51 Temperature 36.6 C 12/10/24 15:38 Pulse Rate 72 12/10/24 15:38 Respiratory Rate 18 12/10/24 15:38 Blood Pressure 155/60 H 12/10/24 15:38 Pulse Oximetry 100 12/10/24 15:38 Oxygen Delivery Room Air 12/10/24 15:38 Medical Decision Making Vital Signs Vital Signs: Vital Signs Temperature 36.6 C 12/10/24 12:51 Pulse Rate 87 12/10/24 12:51 Respiratory Rate 20 12/10/24 12:51 Blood Pressure 144/72 H 12/10/24 12:51 Pulse Oximetry 100 12/10/24 12:51 Oxygen Delivery Room Air 12/10/24 12:51 Temperature 36.6 C 12/10/24 15:38 Pulse Rate 72 12/10/24 15:38 Respiratory Rate 18 12/10/24 15:38 Blood Pressure 155/60 H 12/10/24 15:38 Pulse Oximetry 100 12/10/24 15:38 Oxygen Delivery Room Air 12/10/24 15:38 Lab Data 12/10/24 14:26 12/10/24 14:26 Labs: Lab Results 12/10/24 12/10/24 Range/Units 13:22 14:26 WBC 9.8 (4.8-10.8) K/mm3 RBC 4.01 L (4.20-5.40) M/mm3 Hgb 11.8 L (12.0-15.0) g/dL Hct 34.9 L (35.0-49.0) % MCV 87.0 (78.0-102.0) fL MCH 29.4 (27.0-31.0) pg MCHC 33.8 (32-36) g/dL RDW 13.9 (11.6-14.4) % Plt Count 258 (150-420) K/mm3 MPV 9.6 (9.2-11.8) fl Immature Gran % (Auto) 0.6 H (0.0-0.0) % Neut % (Auto) 84.8 H (50.0-70.0) % Lymph % (Auto) 6.5 L (18.0-42.0) % Russell % (Auto) 6.1 (2.0-11.0) % Eos % (Auto) 1.2 (1.0-6.0) % Baso % (Auto) 0.8 (0.0-1.0) % Lymph # (Auto) 0.64 L (1.10-4.50) K/mm3 Russell # (Auto) 0.60 (0.10-0.90) K/mm3 Eos # (Auto) 0.12 (0.02-0.50) K/mm3 Baso # (Auto) 0.08 (0.00-0.10) K/mm3 Abs Immat Gran (auto) 0.06 H (0.00-0.00) K/mm3 Absolute Neuts (auto) 8.32 H (1.70-7.20) K/mm3 Absolute Nucleated RBC 0.00 (0.00-0.00) K/mm3 Nucleated RBC % 0.0 (0-0.0) % Sodium 129 L (137-145) mmol/L Potassium 3.6 (3.4-5.0) mmol/L Chloride 97 L (98-107) mmol/L Carbon Dioxide 26 (22-30) mmol/L Anion Gap 6 (4-12) mmol/L BUN 6 L D (7-17) mg/dL Creatinine 4.32 H (0.7-1.0) mg/dL Estim Creat Clear Calc 13 ml/min Estimated GFR 10 L (59 - ) Glucose 175 H (65-110) mg/dL Calculated Osmolality 269 L (285-295) mOsm/kg Calcium 9.4 (8.4-10.2) mg/dL Magnesium 1.9 (1.6-2.3) mg/dL Total Bilirubin 0.6 (0.2-1.3) mg/dL AST 29 (14-36) U/L ALT 16 (6-35) U/L Alkaline Phosphatase 51 (38-126) U/L Total Protein 5.8 L (6.3-8.2) g/dL Albumin 3.4 L (3.5-5.1) g/dL Amylase 53 (30-110) U/L Lipase 30 (23-300) U/L Influenza A (RT-PCR) Negative (Negative) Influenza B (RT-PCR) Negative (Negative) RSV (RT-PCR) Negative (Negative) SARS-CoV-2 RNA (RT-PCR) Negative (Negative) Imaging Data Radiologist's impression: CT ABDOMEN AND PELVIS WITHOUT CONTRAST Clinical History: epigastric/periumbilical abdominal pain, ESRD HD Comparison: CT abdomen and pelvis 10/23/2024 Technique: Unenhanced axial images lung bases to symphysis pubis Coronal, sagittal reformats CT images acquired with automatic exposure control for dose reduction DLP: 817 mGy-cm Findings: Without intravenous contrast, sensitivity for detecting visceral parenchymal abnormalities decreased. Lung bases: Large right and moderate left pleural effusions. 10 mm nodule right infrahilar. Right middle lobe scarring with calcification. Right lower lobe atelectasis. Visualized heart and pericardium: Coronary artery calcification. Liver: Enlarged. Multiple punctate calcifications. Gallbladder: Absent. Spleen: Multiple punctate calcifications. Pancreas: Unremarkable. Adrenal glands: Unremarkable. Kidneys: Atrophic. Right kidney- No hydronephrosis. Vascular calcifications and/or stones. Left kidney- No hydronephrosis. Vascular calcifications and/or stones. Distal esophagus/stomach: Unremarkable. Small bowel loops: Normal caliber and wall thickness. Fluid-filled loops. Colon: Diffuse wall thickening. Appendix not identified. Nodes: No enlarged nodes. Peritoneum: No ascites. No free intraperitoneal air. Urinary bladder: Unremarkable. Uterus: Unremarkable. Adnexa: No masses. Bones: No acute bony abnormality. Soft tissues: Unremarkable. Unopacified abdominal aorta: No aneurysmal dilatation. Atherosclerotic disease. IMPRESSION: 1. Colitis. 2. No other acute abnormality within abdomen or pelvis. 3. Large right and moderate left pleural effusions. Reviewed, dictated and finalized at location R. Discharge Plan Discharge Clinical Impression: Altered mental status, Abdominal pain, Opiate withdrawal Patient Disposition: Home Condition: Stable Instructions: Abdominal Pain (ED), Opioid Withdrawal (ED) Additional Instructions: Your electrolytes are acceptable given the need for dialysis. The rest of her blood work was unremarkable. CT imaging revealed some thickening of the colon which is nonspecific. There is fluid around both lungs more on the right which is often times seen in dialysis patients. Are no other acute findings. Likely are withdrawal from not having Gallant available. One Gallant was given to her in the emergency room. Continue Gallant as needed but use very sparingly. Try to cut the pill in half each time. Follow-up with your primary care provider for further evaluation and management of the narcotics. Return if worse Patient Language: South Sudanese Prescriptions: New hydrocodone-acetaminophen 5-325 mg tablet 0.5 tablet PO DAILY PRN (Reason: severe pain (scale score 7-10)) Qty: 7 0RF Rx Instructions: use very sparingly No Action montelukast 10 mg tablet 10 mg PO DAILY Deepa-Vikash 0.8 mg tablet 0.8 tablet PO DAILY levothyroxine 175 mcg tablet 175 mcg PO DAILY atorvastatin 20 mg tablet 20 mg PO HS clopidogrel 75 mg tablet 75 mg PO DAILY hydrocodone-acetaminophen 7.5-325 mg tablet 1 tablet PO QID PRN (Reason: Pain) paroxetine HCl 40 mg tablet 40 mg PO DAILY insulin asp prt-insulin aspart [Novolog Mix 70-30FlexPen U-100] 100 unit/mL (70-30) insulin pen 35 unit SUBCUT BID Patient Comments: Patient has not been taking due to decreased appetite. sevelamer carbonate 800 mg tablet See Rx Instructions .ROUTE .COMPLEX Patient Comments: Takes with meals Rx Instructions: take as prescribed Eliquis 5 mg tablet 5 mg PO Q12H diltiazem HCl [DILT-XR] 180 mg capsule,ext.rel 24h degradable 180 mg PO Q24H umeclidinium-vilanterol [Anoro Ellipta] 62.5-25 mcg/actuation blister with device 1 inh INHALATION Q24H pantoprazole [Protonix] 40 mg tablet,delayed release (DR/EC) 40 mg PO HS 28 Days Qty: 28 0RF ondansetron 4 mg tablet,disintegrating 4 mg PO Q8H PRN (Reason: nausea and vomiting) Qty: 20 0RF metoclopramide HCl 10 mg tablet 10 mg PO TIDWM Qty: 90 0RF Patient Comments: Before meals lisinopril 10 mg Tablet 10 mg PO QAM Qty: 30 0RF hydrocodone-acetaminophen 7.5-325 mg tablet 1 tablet PO Q8H PRN (Reason: pain) Qty: 6 0RF Follow-up/Referrals: Jabari Banda MD [Primary Care Provider, Internal Medicine] - 1 Week Referral Note: Abdominal pain, CT imaging reveals bilateral pleural effusions and colitis. No diarrhea. Opiate withdrawal as she is out of Gallant for 1 week. A 7 tablet prescription was sent to the pharmacy. For follow-up. Clinical Impression: Opiate withdrawal; Altered mental status; Abdominal pain Time of Disposition: 15:28
--- OUTSIDE RECORDS SUMMARY | 2024-12-10 14:25 | XMS_ITS | Clinical Summary ---
Author Organization [facility] Address [address] [place] [address] Phone Care Team Providers Care Ict Educator Name Role Phone Provider, None Primary Care Provider Unavailabl e Allergies No known active allergies Medications Eliquis 5 MG Tablet Take 5 mg by mouth 2 times daily. 4 Active B Usixxbj-R-Phhuz Acid (Deepa-Vikash Rx) 1 MG Tablet Take [...] any time in the past 12 m [facility], were you homeless or living in a [place] health care facility (including now)? Patient declined 03/13/2024 Comments Unknown Sex and Gender Information Value Date Recorded Sex Assigned at Not on file Legal Sex Female 9:03 AM POT RUNNER Gender Identity Not on file Sexual Orientation Not on file Last Filed Vital Signs Vital Sign Reading Time Taken Comments Blood Pressure 184/65 03/15/2024 2:00 PM POT RUNNER Pulse 74 03/15/2024 2:00 PM POT RUNNER Temperature 36.5 C (97.7 F) 03/15/2024 2:00 PM POT RUNNER Respiratory Rate 18 03/15/2024 2:00 PM POT RUNNER Oxygen Saturation 97% 03/15/2024 8:02 AM POT RUNNER Inhaled Oxygen Concentration - - Weight 97.8 kg (215 lb 9.8 oz) 03/14/2024 2:30 P M POT RUNNER Height 165.1 cm (5' 5) 03/13/2024 2:33 PM POT RUNNER Body Mass Index 35.88 03/13/2024 2:33 PM POT RUNNER Plan of Treatment Health Maintenance Due Date [...] PCR VIRAL LOAD Routine 03/15/2024 5:50 AM POT RUNNER HEMOGLOBIN A1C W/ ESTIMATED GLUCOSE Routine 03/14/2024 4:22 AM POT RUNNER CMP (COMPREHENSIVE METABOLIC PANEL) 03/13/2024 12:00 AM POT RUNNER from Last 3 Months or Most Recently Relevant to Health Maintenance Results * Hepatitis C RNA Quant PCR Viral Load (03/15/2024 5:50 AM POT RUNNER) [facility] HCV RNA QUANT PCR NON DETECTED NON DETECTED 03/15/2024 11:56 PM POT RUNNER [facility] RNA QT LOG10 03/15/2024 11:56 PM POT RUNNER [facility] Comment: LOG 10 is not applicable. This test was performed using IRON 5800 Real Time PCR. Blood Venipuncture / Unknown 03/15/2024 5:50 AM POT RUNNER 03/15/2024 5:59 AM POT RUNNER us Crystal Amador MD IMMUNOLOGY ORDERABLES F inal Result [facility] [address] [place] [address], * (ABNORMAL) Hemoglobin A1C (if indicated) (03/14/2024 4:22 AM POT RUNNER) [facility] HGB-A1C 6.4(H) 4.0 - 6.0 % 03/14/2024 6:12 AM POT RUNNER [facility] Est Average Glucose 137.0 mg/dL 03/14/2024 6:12 AM POT RUNNER [facility] Blood Venipuncture / Unknown 03/14/2024 4:22 AM POT RUNNER 03/14/2024 5:45 AM POT RUNNER Narrative [facility] - 03/14/2024 6:12 AM POT RUNNER HEMOGLOBIN A1C: DIABETIC PATIENTS: WELL-CONTROLLED: 6.2 - 7.0 INTERMEDIATE WELL-CONTROLLED: 7.0 - 9.0 POORLY-CONTROLLED: >9.0 Specimens containing greater than 5% of Hemoglobin F may result in lower than expected % HbA1C results. us Jillian Castillo SENIOR CLIMATE ADVISOR, ACUTE CARE ASSISTANT CHEMISTRY ORDERABLES Final Result Performing Organization Address City/[facility]/ZIP Co de Phone Number [facility] [address] [place] [address] * CMP (Comprehensive Metabolic Panel) (03/13/2024 12:00 AM POT RUNNER) 03/13/2024 us Provider Scan CHEMISTRY ORDERABLES Final Resul t Performing Organization Address City/[facility]/ZIP Co de Phone Number SCAN from Last 3 Months or Most Recently Relevant to Health Maintenance Insurance [address] [place] [address] MEDICAID [place] MEDICARE Advance Directives * Full Code (Latest Code Status on File) Date Activated Date Inactivated Comments 03/13/2024 6:23 PM CPR-Full Treat ment: FULL ARREST: Attempt Resuscitation/CPR wit intubation and mechanical ventilation. PRE-ARREST: Use entire range of life support measures to stabilize the patient. Care Teams Ict Educator Relationship Specialty Start Date End Date Provider, None [place] PCP - General 03/13/24
--- OUTSIDE RECORDS SUMMARY | 2024-12-10 14:25 | XMS_ITS | Clinical Summary ---
Author Organization [facility] Address [address] [place] [address] Care Team Providers Care Lapel Stitcher Name Role Phone Jabari Banda MD Primary Care Provider [phone] Christine Stevens RN Unavailable [phone] Mily Vance TUG HAND-CONSUMER EDUCATOR Unavailable + Darby Del Real RN Unavailable Unavailable Kaity Bowens Unavailable Unavailable Source Comments [facility],non-owned Affiliates and Associated Physician Practices is amultiple site organization consisting of ambulatory clinics and hospital sitesin [place], [place], [place] and [place]. This disclosure is being madepursuant to the Care Everywhere program and may not contain all information available regarding this patient. Last updated 17.[facility] [employer] Allergies No known active allergies Medications * [...] failure 016 Overview (08/22/2015): Added per clinical community relations specialist per dc summary Dr. Lee . 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 INTERNAL AUDIT DIRECTOR Gender Identity Not on file Sexual Orientation [...] 5:40 AM CDT) Hepatitis C Virus Quantitation [id number] IU/mL 05/07/2015 9:18 AM CDT [facility] Hepatitis C Virus Log 10 6.037 log10 IU/mL 05/07/2015 9:18 AM CDT [facility] Test Information Comment 05/07/2015 9:18 AM CDT [facility] Comment: The quantitative range of [...] CDT 05/04/2015 5:46 AM CDT Narrative [facility] ([facility]) - 05/07/2015 9:18 AM CDT Performed at: [address] [place] [id number] Label Designer: Conrado Keane MD, Phone: [phone] Nunu Reynoso MD LAB - CHEMISTRY ORDERABLES Final Result [facility]) [address] [place] [address] from Last 3 Months or Most Recently [...] 2:49 PM 05/01/2015 3:17 PM Care Teams Lapel Stitcher Relationship Specialty Start Date End Date Jabari Banda MD [address] [place] [address] PCP - General Internal Medicine 05/01/15 Christine Stevens, RN [employer] 05/02/15 Mily Vance, TUG HAND-CONSUMER EDUCATOR [address] [facility] [address] [place] [id number] Registered Nurse - Cardiopulmonary Rehab 08/04/15 Darby Del Real RN Registered Nurse - Cardiopulmonary Rehab 08/04/15 Kaity Bowens Dialysis Liaison 08/14/15
[2024-12-10 14:31] LABS: Hematocrit 34.9 % (35.0-49.0); Hemoglobin 11.8 g/dL (12.0-15.0); Immature Granulocyte Percent A 0.6 % (0.0-0.0); Lymphocytes Absolute Auto 0.64 K/mm3 (1.10-4.50); Mean Corpuscular HGB Conc 33.8 g/dL (32-36); Mean Corpuscular Hemoglobin 29.4 pg (27.0-31.0); Mean Corpuscular Volume 87.0 fL (78.0-102.0); Nucleated Red Blood Cells Absolute Auto 0.00 K/mm3 (0.00-0.00); Nucleated Red Blood Cells Perc 0.0 % (0-0.0); Platelet Count Result 258 K/mm3 (150-420); Red Blood Count 4.01 M/mm3 (4.20-5.40); White Blood Count 9.8 K/mm3 (4.8-10.8)
[2024-12-10 14:40] LABS: Influenza A QL RT-PCR Negative (Negative); Influenza B QL RT-PCR Negative (Negative); RSV RNA, RT-PCR Negative (Negative); SARS-CoV-2 RNA PCR Negative (Negative)
[2024-12-10 14:59] LABS: Alanine Aminotransferase 16 U/L (6-35); Albumin Level 3.4 g/dL (3.5-5.1); Alkaline Phosphatase 51 U/L (38-126); Amylase 53 U/L (30-110); Anion Gap 6 mmol/L (4-12); Aspartate Amino Transferase 29 U/L (14-36); Bilirubin,Total 0.6 mg/dL (0.2-1.3); Blood Urea Nitrogen 6 mg/dL (7-17); Calcium 9.4 mg/dL (8.4-10.2); Carbon Dioxide 26 mmol/L (22-30); Chloride 97 mmol/L (98-107); Estimated CRCL calculation 13 ml/min; Estimated Glomerular Filt Rate 10; Glucose 175 mg/dL (65-110); Lipase 30 U/L (23-300); Magnesium 1.9 mg/dL (1.6-2.3); Osmolality Calculated 269 mOsm/kg (285-295); Potassium 3.6 mmol/L (3.4-5.0); Sodium 129 mmol/L (137-145); Total Protein 5.8 g/dL (6.3-8.2)
--- OUTSIDE RECORDS SUMMARY | 2024-12-10 15:10 | XMS_ITS | Clinical Summary ---
Author Organization [facility] Address [address] [place] [address] Phone Care Team Providers Care Chilling Hood Operator Name Role Phone Provider, None Primary Care Provider Unavailabl e Allergies No known active allergies Medications Eliquis 5 MG Tablet Take 5 mg by mouth 2 times daily. 4 Active B Vmqwzrd-D-Zwfps Acid (Deepa-Vikash Rx) 1 MG Tablet Take [...] Years Used Date Smoking Tobacco: Never Assessed [facility] Utilities Answer Date Recorded In the past [...] any time in the past 12 m [facility], were you homeless or living in a detention (including now)? Patient declined 03/13/2024 Comments Unknown Sex and Gender Information Value Date Recorded Sex Assigned at Not on file Legal Sex Female 9:03 AM LAND EXAMINER Gender Identity Not on file Sexual Orientation Not on file Last Filed Vital Signs Vital Sign Reading Time Taken Comments Blood Pressure 184/65 03/15/2024 2:00 PM LAND EXAMINER Pulse 74 03/15/2024 2:00 PM LAND EXAMINER Temperature 36.5 C (97.7 F) 03/15/2024 2:00 PM LAND EXAMINER Respiratory Rate 18 03/15/2024 2:00 PM LAND EXAMINER Oxygen Saturation 97% 03/15/2024 8:02 AM LAND EXAMINER Inhaled Oxygen Concentration - - Weight 97.8 kg (215 lb 9.8 oz) 03/14/2024 2:30 P M LAND EXAMINER Height 165.1 cm (5' 5) 03/13/2024 2:33 PM LAND EXAMINER Body Mass Index 35.88 03/13/2024 2:33 PM LAND EXAMINER Plan of Treatment Health Maintenance Due Date [...] PCR VIRAL LOAD Routine 03/15/2024 5:50 AM LAND EXAMINER HEMOGLOBIN A1C W/ ESTIMATED GLUCOSE Routine 03/14/2024 4:22 AM LAND EXAMINER CMP (COMPREHENSIVE METABOLIC PANEL) 03/13/2024 12:00 AM LAND EXAMINER from Last 3 Months or Most Recently Relevant to Health Maintenance Results * Hepatitis C RNA Quant PCR Viral Load (03/15/2024 5:50 AM LAND EXAMINER) [facility] HCV RNA QUANT PCR NON DETECTED NON DETECTED 03/15/2024 11:56 PM LAND EXAMINER [facility] HCV RNA QT LOG10 03/15/2024 11:56 PM LAND EXAMINER [facility] Comment: LOG 10 is not applicable. This test was performed using IRON 5800 Real Time PCR. Blood Venipuncture / Unknown 03/15/2024 5:50 AM LAND EXAMINER 03/15/2024 5:59 AM LAND EXAMINER us Crystal Amador MD IMMUNOLOGY ORDERABLES F inal Result [facility] [address] [place] [address], * (ABNORMAL) Hemoglobin A1C (if indicated) (03/14/2024 4:22 AM LAND EXAMINER) [facility] HGB-A1C 6.4(H) 4.0 - 6.0 % 03/14/2024 6:12 AM LAND EXAMINER [facility] Est Average Glucose 137.0 mg/dL 03/14/2024 6:12 AM LAND EXAMINER [facility] Blood Venipuncture / Unknown 03/14/2024 4:22 AM LAND EXAMINER 03/14/2024 5:45 AM LAND EXAMINER Narrative [facility] - 03/14/2024 6:12 AM LAND EXAMINER HEMOGLOBIN A1C: DIABETIC PATIENTS: WELL-CONTROLLED: 6.2 - 7.0 INTERMEDIATE WELL-CONTROLLED: 7.0 - 9.0 POORLY-CONTROLLED: >9.0 Specimens containing greater than 5% of Hemoglobin F may result in lower than expected % HbA1C results. us Jillian Castillo MARINE ELECTRONICS TECHNICIAN, [employer]MAN CHEMISTRY ORDERABLES Final Result Performing Organization Address City/[facility]/ZIP Co de Phone Number [facility] [address] [place] [address] * CMP (Comprehensive Metabolic Panel) (03/13/2024 12:00 AM LAND EXAMINER) 03/13/2024 us Provider Scan CHEMISTRY ORDERABLES Final Resul t Performing Organization Address City/[facility]/ZIP Co de Phone Number SCAN from Last 3 Months or Most Recently Relevant to Health Maintenance Insurance [address] [place] [address] MEDICAID [place] MEDICARE Advance Directives * Full Code (Latest Code Status on File) Date Activated Date Inactivated Comments 03/13/2024 6:23 PM CPR-Full Treat ment: FULL ARREST: Attempt Resuscitation/CPR wit intubation and mechanical ventilation. PRE-ARREST: Use entire range of life support measures to stabilize the patient. Care Teams Chilling Hood Operator Relationship Specialty Start Date End Date Provider, None [place] PCP - General 03/13/24
--- OUTSIDE RECORDS SUMMARY | 2024-12-10 15:10 | XMS_ITS | Encounter Summary ---
Author Organization [facility] Address [address] [place] [address] Care Team Providers Care Isotope Technician Name Role Phone Jabari Banda MD Primary Care Provider [phone] Christine Stevens RN Unavailable [phone] Mily Vance ACTION FINISHER-GLUE SIZE MACHINE OPERATOR Unavailable + Darby Del Real RN Unavailable Unavailable Kaity Bowens Unavailable Unavailable Encounter Details Date Type Department Care Team (Late st Contact Info) Description 08/11/2015 Transitional Care [facility] [address] [place] [address] Darby Del Real RN Social History Tobacco Use Types Packs/Day Years Used Date Smoking Tobacco: Former Cigarettes Q uit: 05/02/2015 Alcohol Use Standard Drinks/Week Comments Not Asked 0 (1 standard drink = 0.6 oz pur e alcohol) Comments No Sex and Gender Information Value Date Recorded Sex Assigned at Not on file Legal Sex Female 9:41 AM MACHINE OPERATOR SLITTER TECHNICIAN Gender Identity Not on file Sexual [...] on filedocumented in this encounter Care Teams Isotope Technician Relationship Specialty Start Date End Date Jabari Banda MD [address] [place] [address] PCP - General Internal Medicine 05/01/15 Christine Stevens, RN Membership Secretary 05/02/15 Mily Vance APRN-GLUE SIZE MACHINE OPERATOR [facility] [address] [id number] Registered Nurse - Cardiopulmonary Rehab 08/04/15 Nasima, Darby, RN Registered Nurse - Cardiopulmonary Rehab 08/04/15 Kaity Bowens Dialysis Liaison 08/14/15 documented as of this encounter
--- OUTSIDE RECORDS SUMMARY | 2024-12-10 15:10 | XMS_ITS | Clinical Summary ---
Author Organization [facility] Address [address] [place] [address] Care Team Providers Care Grape Pruner Name Role Phone Jabari Banda MD Primary Care Provider [phone] Christine Stevens RN Unavailable [phone] Mily Vance RESTAURANT DELIVERY DRIVER-MOLD BLOWER Unavailable + Darby Del Real RN Unavailable Unavailable Kaity Bowens Unavailable Unavailable Source Comments [facility],non-owned Affiliates and Associated Physician Practices is amultiple site organization consisting of ambulatory clinics and hospital sitesin [place], [place], [place] and [place]. This disclosure is being madepursuant to the Care Everywhere program and may not contain all information available regarding this patient. Last updated 17.[facility] [employer] Allergies No known active allergies Medications * [...] failure 016 Overview (08/22/2015): Added per clinical pet nutrition specialist per dc summary Dr. Lee . 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 BOOTH USHER Gender Identity Not on file Sexual Orientation [...] 5:40 AM CDT) Hepatitis C Virus Quantitation [id number] IU/mL 05/07/2015 9:18 AM CDT [facility] Hepatitis C Virus Log 10 6.037 log10 IU/mL 05/07/2015 9:18 AM CDT [facility] ([facility]) Test Information Comment 05/07/2015 9:18 AM CDT [facility] Comment: The quantitative range of the [...] CDT 05/04/2015 5:46 AM CDT Narrative [facility] ([facility]) - 05/07/2015 9:18 AM CDT Performed at: [address] [place] [id number] Pants Busheler: Conrado Keane MD, Phone: [phone] Nunu Reynoso MD LAB - CHEMISTRY ORDERABLES Final Result [facility]) [address] [place] [address] from Last 3 Months or Most Recently [...] 2:49 PM 05/01/2015 3:17 PM Care Teams Grape Pruner Relationship Specialty Start Date End Date Jabari Banda MD [address] [place] [address] PCP - General Internal Medicine 05/01/15 Christine Stevens, RN Rn Gyn 05/02/15 Mily Vance, RESTAURANT DELIVERY DRIVER-MOLD BLOWER [address] [facility] [address] [place] [id number] Registered Nurse - Cardiopulmonary Rehab 08/04/15 Darby Del Real RN Registered Nurse - Cardiopulmonary Rehab 08/04/15 Kaity Bowens Dialysis Liaison 08/14/15
[2024-12-10] MEDS: HYDROcodone/acetaminophen (*CRX) 5-325 MG TABLET 1 TAB PO (15:15)
--- NOTE | 2024-12-12 13:22 | PC.NURSE ---
FINAL BLOOD CULTURE REPORT: NO GROWTH. MD JESSICA APPROVES CURRENT DISCHARGE REGIMEN AT THIS TIME.
== END 2024-12-10 15:38 | disposition home or self-care (01) ==
PROVIDERS: Emergency Provider Emergency Medicine; PCP Internal Medicine
DX: R41.82 Altered mental status, unspecified (principal); F11.23 Opioid dependence with withdrawal; T40.2X6A Underdosing of other opioids, initial encounter; Z91.138 Patient's unintentional underdosing of medication regimen for other reason; I13.2 Hypertensive heart and chronic kidney disease with heart failure and with stage 5 chronic kidney disease, or end stage renal disease; I50.9 Heart failure, unspecified; N18.6 End stage renal disease; E11.22 Type 2 diabetes mellitus with diabetic chronic kidney disease; E78.5 Hyperlipidemia, unspecified; E03.9 Hypothyroidism, unspecified; I25.10 Atherosclerotic heart disease of native coronary artery without angina pectoris; J44.9 Chronic obstructive pulmonary disease, unspecified; Z87.891 Personal history of nicotine dependence; Z20.822 Contact with and (suspected) exposure to COVID-19
CPT/HCPCS: 36415; 74176; 80053; 82150; 83690; 83735; 85025; 87637; 99284; A9270

== ENCOUNTER 2025-02-04 12:45 | Emergency (ER) | payer MEDICARE, MEDICAID, SELFPAY ==
--- NOTE | ~2025-02-04 | CT_ITS ---
EXAMINATION: CT abdomen pelvis wo con DATE: 02/04/2025 14:00 INDICATION: Abdominal pain TECHNIQUE: Computed tomography (CT) of the abdomen and pelvis was performed without intravenous contrast. Automated exposure control and iterative reconstruction technique were employed. The dose-length product was 719.12 mGy-cm. COMPARISON: None FINDINGS: Small left and moderate-sized right posterior layering pleural effusions. There is secondary compressive atelectasis in the bilateral lower lungs. Cardiomegaly. Atherosclerotic coronary artery calcification. No pericardial effusion. Numerous hepatic and splenic calcifications consistent with old granulomatous disease. Cholecystectomy clips at the gallbladder fossa. There is extensive calcified atherosclerosis of the aorta and many of the other arteries. Pancreas and bilateral adrenal glands are normal. Severe bilateral renal atrophy. In addition to atherosclerotic calcifications at both kidneys there appears be likely nonobstructing stones in calyces of both kidneys. No evident ureteral stones or hydronephrosis. Bladder and anteverted uterus and right adnexa are normal. 1.4 cm left adnexal cyst. No bowel obstruction. Small amount of ascites scattered throughout the abdomen and pelvis. No or free intraperineal gas or loculated fluid collection to suggest abscess. No pathologically enlarged abdominal or pelvic lymphadenopathy. There is diffuse body wall edema. Mild degenerative skeletal changes in the spine and pelvis. There are bridging osteophytes at multiple levels in the visualized lower thoracic spine consistent with diffuse idiopathic skeletal hyperostosis (DISH). IMPRESSION: 1. Small amount of ascites and diffuse body wall edema. 2. Small left and moderate-sized right posterior layering pleural effusions. 3. Severe bilateral renal atrophy with bilateral nonobstructing nephrolithiasis. Reviewed, dictated and finalized at location A. SALES REPRESENTATIVE IMPRESSION: 1. Small amount of ascites and diffuse body wall edema. 2. Small left and moderate-sized right posterior layering pleural effusions. 3. Severe bilateral renal atrophy with bilateral nonobstructing nephrolithiasis .
--- NOTE | ~2025-02-04 | CT_ITS ---
EXAMINATION: CT brain wo con, 02/04/2025 13:45 LICENSED TAX CONSULTANT HISTORY: Fall COMPARISON: No comparisons available. Technique: Axial images obtained of the brain without contrast. One or more of the following dose reduction techniques were used: automated exposure control, adjustment of the mA and/or kV according to patient size, use of iterative reconstruction technique. Findings: Remote right basal ganglia ganglia and pontine lacunar infarcts. No acute infarct or hemorrhage. No midline shift or mass effect. No extra-axial fluid collections. Mastoid air cells unremarkable. Sinuses and orbits unremarkable. No acute fracture. No significant facial or scalp soft tissue swelling evident. No radiopaque foreign body is seen. Impression: 1.No acute intracranial abnormality. Reviewed, dictated and finalized at location P. NSED TAX CONSULTANT Impression: 1.No acute intracranial abnormality.
--- NOTE | ~2025-02-04 | CT_ITS ---
EXAMINATION: CT cervical spine wo con COMPARISON: None HISTORY: Fall TECHNIQUE: Axial images were obtained through the spine without IV contrast. Coronal, sagittal reconstruction images were obtained from the axial views. CT scan performed using dose optimization techniques including the following automated exposure control; adjustment of mA and/or kV; use of iterative reconstruction technique. Automatic exposure control was used to reduce radiation dose. Permanent radiation dose record is archived to PACS. FINDINGS: Grade 1 anterolisthesis of C2 on C3 and C3 on C4 C4 on C5, no fracture identified. Moderate to severe loss of disc height at C5-6 and C6-7 with anterior osteophyte formation with moderate canal and foraminal stenosis. Soft tissues unremarkable. Impression: No acute abnormality. Reviewed, dictated and finalized at location P. ORDER CLERK Impression: No acute abnormality.
[2025-02-04 12:45] VITALS: BP 172/68; PULSE 72; RESP 20; TEMP 36.7; O2SAT 100
--- NOTE | 2025-02-04 13:10 | ED_ITS ---
HPI - Abdominal Pain General Chief Complaint: Fall Stated Complaint: abdominal pain Time Seen by Provider: 02/04/25 13:10 Source: patient Mode of arrival: ambulatory Limitations: clinical condition and dementia History of Present Illness HPI narrative: 64 years old white female came to the ED with her significant other complaining of abdominal pain for the last few days. Similar to her previous chronic intermittent abdominal pain secondary to gastroparesis. Patient got out of bed lost balance and hit the right frontal area on the table before going to the ground. No loss of consciousness, denying any headache, neck pain, nausea, vomiting Related Data Home Medications ?Medication ?Instructions ?Recorded ?Confirmed ?Last Taken ?Type atorvastatin 20 mg tablet 20 mg PO HS 06/17/19 5 10/22/24 History clopidogrel 75 mg tablet 75 mg PO DAILY 06/17/1904/1710/22/24 History hydrocodone 7.5 mg-acetaminophen 1 tablet PO QID PRN P ain 06/17/19 10/23/24 10/22/24 History 325 mg tablet insulin aspar prot-insulin aspart 35 unit subcut BID 0 06/17/19 10/23/24 10/08/24 History 100 unit/mL (70-30) subcutaneous pen (Novolog Mix 70-30FlexPen U-100) levothyroxine 175 mcg tablet 175 mcg PO DAILY 06/17/19 10/23/24 10/22/24 History paroxetine HCl 40 mg tablet 40 mg PO DAILY 06/17/1910/22/24 History sevelamer carbonate 800 mg tablet See Rx Instructions .Route .COMPLEX 06/17/19 10/23/24 10/22/24 History montelukast 10 mg tablet 10 mg PO DAILY 01/02/2104/1710/22/24 History vitamin B complex-vitamin C-folic 0.8 tablet PO DAILY 01/02/21 10/23/24 10/22/24 History acid 0.8 mg tablet (Deepa-Vikash) apixaban 5 mg tablet (Eliquis) 5 mg PO Q12H 10/08/24 0 10/23/24 10/22/24 History diltiazem HCl 180 mg 180 mg PO Q24H 10/08/2404/1710/22/24 History capsule,extended release 24 hr, controlled (DILT-XR) umeclidinium 62.5 mcg-vilanterol 1 inh inhalation Q24H 10/08/24 10/23/24 10/22/24 History 25 mcg/actuation powdr for inhalation (Anoro Ellipta) Allergies Allergy/AdvReac Type Severity Reaction Status Date / Time No Known Allergies Allergy Verified 02/04/25 13:03 [facility] Past Medical History Medical History CHF (congestive heart failure) Anxiety and depression History of CVA (cerebrovascular accident) VIJAY (obstructive sleep apnea) CAD (coronary artery disease) Hypothyroidism Other chronic pain Incomplete tear of left rotator cuff Chronic left shoulder pain Anemia Hypertension Hyperlipidemia ESRD (end stage renal disease) on dialysis COPD (chronic obstructive pulmonary disease) Diabetes mellitus Surgical History Surgical History S/P cholecystectomy History of thyroid surgery History of x2 Hx of appendectomy Family History Family History Father Diabetes mellitus Hypertension Cerebrovascular accident Family history of arthritis Family history of malignant neoplasm Mother Family history of malignant neoplasm Family history of diabetes mellitus in first degree relative Social History Social History Smoking packs per day: 0.5 Smoking cigarettes per day: 10.0 Years smoked: 20 Smoking pack-years: 10.00 Smoking status: Former smoker Tobacco type: cigarettes Second hand tobacco smoke exposure: No Alcohol intake: former Substance use: never Substance use type: former substance user and marijuana Lack of Transportation: No Lack of Food: Never True Current Housing: I Have Housing Concerned About Future Housing: No Difficulty Paying Gas/Electric Bills: No Difficulty Paying for Meds: No Currently Unemployed: No Education: Associate Degree Difficulty w/ Childcare or Family Care: No Living arrangements: with family Spiritual care concerns: No Course Vital Signs Vital signs: Vital Signs Temperature 36.7 C 02/04/25 12:45 Pulse Rate 72 02/04/25 12:45 Respiratory Rate 20 02/04/25 12:45 Blood Pressure 172/68 H 02/04/25 12:45 Pulse Oximetry 100 02/04/25 12:45 Oxygen Delivery Room Air 02/04/25 12:45 Temperature 36.7 C 02/04/25 12:45 Pulse Rate 64 02/04/25 14:05 Respiratory Rate 14 02/04/25 14:05 Blood Pressure 148/55 H 02/04/25 14:05 Pulse Oximetry 85 L 02/04/25 14:05 Oxygen Delivery Room Air 02/04/25 14:05 [facility] Narrative Medical decision making narrative: Patient came to the ED from home complaining of abdominal pain and had a fall 4 days ago without any specific trauma. Patient is supposed to go to dialysis today last dialysis was 4 days ago. Vital signs showing blood pressure 172/68 otherwise within normal limit Physical examination showing right upper eyelid bruise, abdominal exam is benign, patient awake oriented to her name and the name of the president only. Differential diagnosis include colitis, diverticulitis, abdominal tumor, dehydration, electrolyte imbalance, gastroparesis Blood workup today includes CBC, CMP, lipase showed 12.0, hemoglobin 9.7, sodium 133, creatinine 5.1, otherwise within normal limit CT head without contrast showed no acute abnormality CT cervical spine without contrast showed no acute abnormality CT abdomen and pelvis with out contrast showed small ascites, diffuse body wall edema, small left on the moderate size right posterior pleural effusion, patient is scheduled for dialysis today. Diagnosis chronic intermittent abdominal pain secondary to gastroparesis, dialysis patient. Patient received 2 mg of morphine IV, 4 mg Zofran IV with significant improvement. The pt was discharged to home.the pt,s condition upon discharge was fair,education was provided to the pt in reference to the final impression,discharge study results,treatment,prognosis and need for follow up . Differential Diagnosis Differential Diagnosis: As above Medical Records I have reviewed the following patient records and this information was taken into consideration when formulating the assessment and plan.: previous labs, previous ER visits and previous hospitalizations Lab Data [facility] Lab Attestation statement: I personally reviewed the patient's lab results. 02/04/25 13:24 02/04/25 13:24 Labs: Lab Results 02/04/25 Range/Units 13:24 WBC 12.0 H (4.8-10.8) K/mm3 RBC 3.34 L (4.20-5.40) M/mm3 Hgb 9.7 L (12.0-15.0) g/dL Hct 31.0 L (35.0-49.0) % MCV 92.8 (78.0-102.0) fL MCH 29.0 (27.0-31.0) pg MCHC 31.3 L (32-36) g/dL RDW 15.7 H (11.6-14.4) % Plt Count 178 (150-420) K/mm3 MPV 9.0 L (9.2-11.8) fl Immature Gran % (Auto) 0.5 H (0.0-0.0) % Neut % (Auto) 87.3 H (50.0-70.0) % Lymph % (Auto) 6.3 L (18.0-42.0) % [place] % (Auto) 4.3 (2.0-11.0) % Eos % (Auto) 1.0 (1.0-6.0) % Baso % (Auto) 0.6 (0.0-1.0) % Lymph # (Auto) 0.75 L (1.10-4.50) K/mm3 [place] # (Auto) 0.51 (0.10-0.90) K/mm3 Eos # (Auto) 0.12 (0.02-0.50) K/mm3 Baso # (Auto) 0.07 (0.00-0.10) K/mm3 Abs Immat Gran (auto) 0.06 H (0.00-0.00) K/mm3 Absolute Neuts (auto) 10.44 H (1.70-7.20) K/mm3 Absolute Nucleated RBC 0.00 (0.00-0.00) K/mm3 Nucleated RBC % 0.0 (0-0.0) % PT 10.3 (9.50-12.1) Seconds INR 0.9 APTT 30.8 H (23.9-30.70) Sec Sodium 133 L (137-145) mmol/L Potassium 4.0 (3.4-5.0) mmol/L Chloride 100 (98-107) mmol/L Carbon Dioxide 25 (22-30) mmol/L Anion Gap 8 (4-12) mmol/L BUN 17 D (7-17) mg/dL Creatinine 5.10 H (0.7-1.0) mg/dL Estim Creat Clear Calc 11 ml/min Estimated GFR 9 L (59 - ) Glucose 121 H (65-110) mg/dL Calculated Osmolality 278 L (285-295) mOsm/kg Lactic Acid 1.9 (0.7-2.0) mmol/L Calcium 9.6 (8.4-10.2) mg/dL Total Bilirubin 0.5 (0.2-1.3) mg/dL AST 26 (14-36) U/L ALT 23 (6-35) U/L Alkaline Phosphatase 97 (38-126) U/L Total Protein 6.4 (6.3-8.2) g/dL Albumin 3.7 (3.5-5.1) g/dL Lipase 51 (23-300) U/L Imaging Data Radiologist's impression: ITS Impressions Head CT 02/04/25 14:02 Impression: 1.No acute intracranial abnormality. Cervical Spine CT 02/04/25 14:04 Impression: No acute abnormality. Abdomen/Pelvis CT 02/04/25 14:40 IMPRESSION: 1. Small amount of ascites and diffuse body wall edema. 2. Small left and moderate-sized right posterior layering pleural effusions. 3. Severe bilateral renal atrophy with bilateral nonobstructing nephrolithiasis. Critical Care Time Critical Care Time Critical Care Time: No Discharge Plan Discharge Clinical Impression: Bruise of face, Chronic abdominal pain, Dialysis patient Patient Disposition: Home Condition: Stable Instructions: Facial Contusion (ED), Hemodialysis (DC), Chronic Abdominal Pain (DC) Additional Instructions: Return if symptoms are worsening , call your family physician for appointment, take Tylenol as as needed for aches and pain, continue home medications. Go to dialysis as soon as possible Patient Language: Armenian Prescriptions: No Action montelukast 10 mg tablet 10 mg PO DAILY Deepa-Vikash 0.8 mg tablet 0.8 tablet PO DAILY levothyroxine 175 mcg tablet 175 mcg PO DAILY atorvastatin 20 mg tablet 20 mg PO HS clopidogrel 75 mg tablet 75 mg PO DAILY hydrocodone-acetaminophen 7.5-325 mg tablet 1 tablet PO QID PRN (Reason: Pain) paroxetine HCl 40 mg tablet 40 mg PO DAILY insulin asp prt-insulin aspart [Novolog Mix 70-30FlexPen U-100] 100 unit/mL (70-30) insulin pen 35 unit SUBCUT BID Patient Comments: Patient has not been taking due to decreased appetite. sevelamer carbonate 800 mg tablet See Rx Instructions .ROUTE .COMPLEX Patient Comments: Takes with meals Rx Instructions: take as prescribed hydrocodone-acetaminophen 5-325 mg tablet 0.5 tablet PO DAILY PRN (Reason: severe pain (scale score 7-10)) Qty: 7 0RF Rx Instructions: use very sparingly Eliquis 5 mg tablet 5 mg PO Q12H diltiazem HCl [DILT-XR] 180 mg capsule,ext.rel 24h degradable 180 mg PO Q24H umeclidinium-vilanterol [Anoro Ellipta] 62.5-25 mcg/actuation blister with device 1 inh INHALATION Q24H pantoprazole [Protonix] 40 mg tablet,delayed release (DR/EC) 40 mg PO HS 28 Days Qty: 28 0RF ondansetron 4 mg tablet,disintegrating 4 mg PO Q8H PRN (Reason: nausea and vomiting) Qty: 20 0RF metoclopramide HCl 10 mg tablet 10 mg PO TIDWM Qty: 90 0RF Patient Comments: Before meals lisinopril 10 mg Tablet 10 mg PO QAM Qty: 30 0RF hydrocodone-acetaminophen 7.5-325 mg tablet 1 tablet PO Q8H PRN (Reason: pain) Qty: 6 0RF Follow-up/Referrals: Jabari Banda MD [Primary Care Provider, Internal Medicine]
[2025-02-04 13:28] LABS: Hematocrit 31.0 % (35.0-49.0); Hemoglobin 9.7 g/dL (12.0-15.0); Immature Granulocyte Percent A 0.5 % (0.0-0.0); Lymphocytes Absolute Auto 0.75 K/mm3 (1.10-4.50); Mean Corpuscular HGB Conc 31.3 g/dL (32-36); Mean Corpuscular Hemoglobin 29.0 pg (27.0-31.0); Mean Corpuscular Volume 92.8 fL (78.0-102.0); Nucleated Red Blood Cells Absolute Auto 0.00 K/mm3 (0.00-0.00); Nucleated Red Blood Cells Perc 0.0 % (0-0.0); Platelet Count Result 178 K/mm3 (150-420); Red Blood Count 3.34 M/mm3 (4.20-5.40); White Blood Count 12.0 K/mm3 (4.8-10.8)
[2025-02-04] MEDS: SODIUM CHLORIDE 0.9% IV 1,000 ML 100 ML IV CONT (13:31)
[2025-02-04] MEDS: MORPHINE SULFATE (*CRX) 2 MG/ML INJ IV PUSH (13:35)
[2025-02-04] MEDS: ONDANSETRON INJ 4 MG/2 ML VIAL IV PUSH (13:35)
[2025-02-04 13:43] LABS: Alanine Aminotransferase 23 U/L (6-35); Albumin Level 3.7 g/dL (3.5-5.1); Alkaline Phosphatase 97 U/L (38-126); Anion Gap 8 mmol/L (4-12); Aspartate Amino Transferase 26 U/L (14-36); Bilirubin,Total 0.5 mg/dL (0.2-1.3); Blood Urea Nitrogen 17 mg/dL (7-17); Calcium 9.6 mg/dL (8.4-10.2); Carbon Dioxide 25 mmol/L (22-30); Chloride 100 mmol/L (98-107); Estimated CRCL calculation 11 ml/min; Estimated Glomerular Filt Rate 9; Glucose 121 mg/dL (65-110); Lipase 51 U/L (23-300); Osmolality Calculated 278 mOsm/kg (285-295); Potassium 4.0 mmol/L (3.4-5.0); Sodium 133 mmol/L (137-145); Total Protein 6.4 g/dL (6.3-8.2)
[2025-02-04 13:44] LABS: INR 0.9; Partial Thromboplastin Time 30.8 Sec (23.9-30.70); Prothrombin Time 10.3 Seconds (9.50-12.1)
[2025-02-04 14:05] VITALS: BP 148/55; PULSE 64; RESP 14; O2SAT 85
[2025-02-04 15:14] VITALS: BP 145/57; PULSE 60; RESP 20; TEMP 36.7; O2SAT 97
== END 2025-02-04 15:15 | disposition home or self-care (01) ==
PROVIDERS: Emergency Provider Emergency Medicine; PCP Internal Medicine
DX: S00.83XA Contusion of other part of head, initial encounter (principal); R10.9 Unspecified abdominal pain; G89.29 Other chronic pain; I13.2 Hypertensive heart and chronic kidney disease with heart failure and with stage 5 chronic kidney disease, or end stage renal disease; I50.9 Heart failure, unspecified; N18.6 End stage renal disease; E11.22 Type 2 diabetes mellitus with diabetic chronic kidney disease; E03.9 Hypothyroidism, unspecified; I25.10 Atherosclerotic heart disease of native coronary artery without angina pectoris; Z86.73 Personal history of transient ischemic attack (TIA), and cerebral infarction without residual deficits; Z87.891 Personal history of nicotine dependence; Z99.2 Dependence on renal dialysis; W06.XXXA Fall from bed, initial encounter
CPT/HCPCS: 36415; 70450; 72125; 74176; 80053; 83605; 83690; 85025; 85610; 85730; 96361; 96374; 96375; 99284; J2270; J2405; J2765; J7030

== ENCOUNTER 2025-02-06 18:12 | Emergency (ER) | payer MEDICARE, MEDICAID, SELFPAY ==
--- NOTE | ~2025-02-06 | XR_ITS ---
XR hand RT min 3V INDICATION: LACERACTION TO TOP OF HAND . COMPARISON: None. FINDINGS: Frontal, lateral, and oblique views of the right hand demonstrate no acute fracture or dislocation. IMPRESSION: Radiographic examination of the right hand demonstrates no acute fracture or dislocation. Reviewed, dictated and finalized at location S. ON DEVELOPER IMPRESSION: Radiographic examination of the right hand demonstrates no acute fracture or di slocation.
--- NOTE | 2025-02-06 18:26 | ED.WOUNDLAC ---
HPI - Wound/Laceration General Chief Complaint: Wound/Laceration Stated Complaint: existing wound reopened Time Seen by Provider: 02/06/25 18:26 Source: patient and family Mode of arrival: ambulatory Limitations: no limitations History of Present Illness HPI narrative: Patient came to the ED with right hand injury. History of chronic right hand dorsum wound, for over 3 months, receiving wound care. Patient accidentally caught her head in the car window prior to arrival causing slight bleeding from the chronic wound, Related Data Home Medications ?Medication ?Instructions ?Recorded ?Confirmed ?Last Taken ?Type atorvastatin 20 mg tablet 20 mg PO HS 06/17/19 10/23/24 10/22/24 History clopidogrel 75 mg tablet 75 mg PO DAILY 06/17/19 10/23/24 10/22/24 History hydrocodone 7.5 mg-acetaminophen 1 tablet PO QID PRN Pain 06/17/19 10/23/24 10/22/24 History 325 mg tablet insulin aspar prot-insulin aspart 35 unit subcut BID 06/17/19 10/23/24 10/08/24 History 100 unit/mL (70-30) subcutaneous pen (Novolog Mix 70-30FlexPen U-100) levothyroxine 175 mcg tablet 175 mcg PO DAILY 06/17/19 10/23/24 10/22/24 History paroxetine HCl 40 mg tablet 40 mg PO DAILY 06/17/19 10/23/24 10/22/24 History sevelamer carbonate 800 mg tablet See Rx Instructions .Route .COMPLEX 06/17/19 10/23/24 10/22/24 History montelukast 10 mg tablet 10 mg PO DAILY 01/02/21 10/23/24 10/22/24 History vitamin B complex-vitamin C-folic 0.8 tablet PO DAILY 01/02/21 10/23/24 10/22/24 History acid 0.8 mg tablet (Deepa-Vikash) apixaban 5 mg tablet (Eliquis) 5 mg PO Q12H 10/08/24 10/23/24 10/22/24 History diltiazem HCl 180 mg 180 mg PO Q24H 10/08/24 10/23/24 10/22/24 History capsule,extended release 24 hr, controlled (DILT-XR) umeclidinium 62.5 mcg-vilanterol 1 inh inhalation Q24H 10/08/24 10/23/24 10/22/24 History 25 mcg/actuation powdr for inhalation (Anoro Ellipta) Allergies Allergy/AdvReac Type Severity Reaction Status Date / Time No Known Allergies Allergy Verified 02/06/25 18:30 Review of Systems Review of Systems: All systems reviewed & are unremarkable except as noted in HPI and below PMFSH Past Medical History Medical History CHF (congestive heart failure) Anxiety and depression History of CVA (cerebrovascular accident) VIJAY (obstructive sleep apnea) CAD (coronary artery disease) Hypothyroidism Other chronic pain Incomplete tear of left rotator cuff Chronic left shoulder pain Anemia Hypertension Hyperlipidemia ESRD (end stage renal disease) on dialysis COPD (chronic obstructive pulmonary disease) Diabetes mellitus Surgical History Surgical History S/P cholecystectomy History of thyroid surgery History of x2 Hx of appendectomy Family History Family History Father Diabetes mellitus Hypertension Cerebrovascular accident Family history of arthritis Family history of malignant neoplasm Mother Family history of malignant neoplasm Family history of diabetes mellitus in first degree relative Social History Social History Smoking packs per day: 0.5 Smoking cigarettes per day: 10.0 Years smoked: 20 Smoking pack-years: 10.00 Smoking status: Former smoker Tobacco type: cigarettes Second hand tobacco smoke exposure: No Alcohol intake: former Substance use: never Substance use type: former substance user and marijuana Lack of Transportation: No Lack of Food: Never True Current Housing: I Have Housing Concerned About Future Housing: No Difficulty Paying Gas/Electric Bills: No Difficulty Paying for Meds: No Currently Unemployed: No Education: Associate Degree Difficulty w/ Childcare or Family Care: No Living arrangements: with family Spiritual care concerns: No Exam Narrative: General appearance: Well-developed, well-nourished Skin: Pail Head: Normocephalic, nontraumatic Eyes: Clear conjunctiva, improving bruises of the right upper eyelid ENT: Oropharynx normal, ears normal, nose normal Neck: Supple, nontender Chest and respiratory: Airway patent, no respiratory distress, no accessory muscle use Heart: Regular rate/rhythm Abdomen: Soft, nontender, no organomegaly, quiet bowel sounds Musculoskeletal: Right hand, dorsal side showing chronic superficial wound, with slight skin tear at the top of the old wound. No active bleeding. Course Vital Signs Vital signs: Vital Signs Temperature 36.4 C 02/06/25 18:36 Pulse Rate 73 02/06/25 18:36 Respiratory Rate 16 02/06/25 18:36 Blood Pressure 140/70 02/06/25 18:36 Pulse Oximetry 100 02/06/25 18:36 Oxygen Delivery Room Air 02/06/25 18:36 Temperature 36.4 C 02/06/25 18:36 Pulse Rate 73 02/06/25 18:36 Respiratory Rate 16 02/06/25 18:36 Blood Pressure 140/70 02/06/25 18:36 Pulse Oximetry 100 02/06/25 18:36 Oxygen Delivery Room Air 02/06/25 18:36 MDM Differential Diagnosis Differential Diagnosis: Skin avulsion, chronic right hand wound Imaging Data Radiologist's impression: ITS Impressions Hand X-Ray 02/06/25 19:02 IMPRESSION: Radiographic examination of the right hand demonstrates no acute fracture or dislocation. Critical Care Time Critical Care Time Critical Care Time: No Discharge Plan Discharge Clinical Impression: Avulsion of skin Patient Disposition: Home Condition: Stable Instructions: Skin Avulsion (ED) Additional Instructions: Return if symptoms are worsening , call your family physician for appointment, take Tylenol as as needed for aches and pain, continue home medications. Follow-up with wound care clinic for further evaluation Patient Language: Ethiopian Prescriptions: No Action montelukast 10 mg tablet 10 mg PO DAILY Deepa-Vikash 0.8 mg tablet 0.8 tablet PO DAILY levothyroxine 175 mcg tablet 175 mcg PO DAILY atorvastatin 20 mg tablet 20 mg PO HS clopidogrel 75 mg tablet 75 mg PO DAILY hydrocodone-acetaminophen 7.5-325 mg tablet 1 tablet PO QID PRN (Reason: Pain) paroxetine HCl 40 mg tablet 40 mg PO DAILY insulin asp prt-insulin aspart [Novolog Mix 70-30FlexPen U-100] 100 unit/mL (70-30) insulin pen 35 unit SUBCUT BID Patient Comments: Patient has not been taking due to decreased appetite. sevelamer carbonate 800 mg tablet See Rx Instructions .ROUTE .COMPLEX Patient Comments: Takes with meals Rx Instructions: take as prescribed hydrocodone-acetaminophen 5-325 mg tablet 0.5 tablet PO DAILY PRN (Reason: severe pain (scale score 7-10)) Qty: 7 0RF Rx Instructions: use very sparingly Eliquis 5 mg tablet 5 mg PO Q12H diltiazem HCl [DILT-XR] 180 mg capsule,ext.rel 24h degradable 180 mg PO Q24H umeclidinium-vilanterol [Anoro Ellipta] 62.5-25 mcg/actuation blister with device 1 inh INHALATION Q24H pantoprazole [Protonix] 40 mg tablet,delayed release (DR/EC) 40 mg PO HS 28 Days Qty: 28 0RF ondansetron 4 mg tablet,disintegrating 4 mg PO Q8H PRN (Reason: nausea and vomiting) Qty: 20 0RF metoclopramide HCl 10 mg tablet 10 mg PO TIDWM Qty: 90 0RF Patient Comments: Before meals lisinopril 10 mg Tablet 10 mg PO QAM Qty: 30 0RF hydrocodone-acetaminophen 7.5-325 mg tablet 1 tablet PO Q8H PRN (Reason: pain) Qty: 6 0RF Follow-up/Referrals: Jabari Banda MD [Primary Care Provider, Internal Medicine]
[2025-02-06 18:36] VITALS: BP 140/70; PULSE 73; RESP 16; TEMP 36.4; O2SAT 100
[2025-02-06] MEDS: HYDROcodone/acetaminophen (*CRX) 5-325 MG TABLET 1 TAB PO (18:53)
--- OUTSIDE RECORDS SUMMARY | 2025-02-06 19:01 | XMS_ITS | Clinical Summary ---
Author Organization [facility] Address [address] [place] [address] Care Team Providers Care Software Quality Automation Engineer Name Role Phone Jabari Banda MD Primary Care Provider [phone] Christine Stevens RN Unavailable Mily Vance BINDER CUTTER HAND-FIELD PARTY MANAGER Unavailable + Darby Del Real RN Unavailable Unavailable Kaity Bowens Unavailable Unavailable Source Comments [facility],non-owned Affiliates and Associated Physician Practices is amultiple site organization consisting of ambulatory clinics and hospital sitesin [place], [place], [place] and [place]. This disclosure is being madepursuant to the Care Everywhere program and may not contain all information available regarding this patient. Last updated 17.[facility] Allergies No known active allergies Medications * [...] DAILY 5 6 Active BD PEN NEEDLE RBAYDEN U/F 32G X 4 MM MISC USE [...] failure 016 Overview (08/22/2015): Added per clinical client solutions specialist per dc summary Dr. Lee . Acute respiratory failure 08/17/2015 Diabetes mellitus type II, uncontrolled 08/17/19 16 ESRD (end stage renal disease) 08/17/2015 Morbid obesity 08/17/2015 Social History Tobacco Use Types Packs/Day Years Used Date Smoking Tobacco: Former Cigarettes 0 Q uit: 05/02/2015 Tobacco Cessation:Counseling Given: Yes Alcohol Use Standard Drinks/Week Comments No 0 (1 standard drink = 0.6 oz pur e alcohol) Comments No Sex and Gender Information Value Date Recorded Sex Assigned at Not on file Legal Sex Female 9:41 AM BEAM PRESS OPERATOR Gender Identity Not on file Sexual [...] 50+ (1 of 1 - PCV) 2010 Respiratory Syncytial Virus (RSV) Vaccine Pt: or over 60 yrs (1 - Risk 50-74 years 1-dose series) 2010 ZOSTER VACCINE (1 of 2) 2010 DEPRESSION SCREENING 02/22/2024 COVID-19 VACCINE (1 - 2024- season) 2024 INFLUENZA VACCINE (#1) 2024 HEPATITIS [...] 5:40 AM CDT) Hepatitis C Virus Quantitation [id number] IU/mL 05/07/2015 9:18 AM CDT [facility] ([facility]) Hepatitis C Virus Log 10 6.037 log10 IU/mL 05/07/2015 9:18 AM CDT [facility] ([facility]) Test Information Comment 05/07/2015 9:18 AM CDT [facility]) Comment: The quantitative range of [...] CDT 05/04/2015 5:46 AM CDT Narrative [facility] ([facility]) - 05/07/2015 9:18 AM CDT Performed at: [address] [place] [id number] Weft Straightener: Conrado Keane MD, Phone: [phone] Nunu Reynoso MD LAB - CHEMISTRY ORDERABLES Final Result [facility]) [address] [place] [address] from Last 3 Months or Most Recently [...] 2:49 PM 05/01/2015 3:17 PM Care Teams Software Quality Automation Engineer Relationship Specialty Start Date End Date Jabari Banda MD [address] [place] [address] PCP - General Internal Medicine 05/01/15 Christine Stevens, RN Assistant Manager 05/02/15 Mily Vance, BINDER CUTTER HAND-FIELD PARTY MANAGER [address] [facility] [address] [place] [phone] Registered Nurse - Cardiopulmonary Rehab 08/04/15 Darby Del Real RN Registered Nurse - Cardiopulmonary Rehab 08/04/15 Kaity Bowens Dialysis Liaison 08/14/15
--- OUTSIDE RECORDS SUMMARY | 2025-02-06 19:01 | XMS_ITS | Encounter Summary ---
Author Organization [facility] Address [address] [place] [address] Care Team Providers Care Picking Machine Operator Helper Name Role Phone Jabari Banda MD Primary Care Provider [phone] Klaus Ramos MD Unavailable [phone] Rylee Rocha MD Unavailable Sergio Ahn PA-C Unavailable [phone] Encounter Details Date Type Department Care Team (Latest Contact Info) Description 05/23/2023 [employer] Message Enc [facility] Cardiovascular Care Unit [address] [place] [address] Dev, [facility] Provider discharge follow up call Social History [...] in a usp (including now)? No 05/16/2023 Comments No Sex and Gender Information Value Date Recorded Sex Assigned at Female 03/23/2024 12:06 PM SALES AND EVENTS COORDINATOR Legal Sex Female 3:27 AM CDT Gender Identity Female 02/11/2023 3:50 PM SALES AND EVENTS COORDINATOR Sexual Orientation Not on file documented as [...] Rule Out 01/08/2024 01/08/2024 01/08/2024 10:52 PM SALES AND EVENTS COORDINATOR COVID-19 Rule Out 06/18/2024 06/18/2024 06/18/2024 8:01 AM CDT Respiratory Rule Out 06/18/2024 06/18/2024 025 8:01 AM CDT documented as of this encounter Care Teams Picking Machine Operator Helper Relationship Specialty Start Date End Date Jabari Banda MD [address] [place] [phone] PCP - General INTERNAL MEDICINE 12/02/15 Klaus Ramos MD [address] [place] [address] [place] [facility] Director CARDIOVASCULAR DISEASE 07/26/18 10/05/23 Rylee Rocha MD [address] [place] [address] Consulting Physician CARDIOVASCULAR DISEASE 10/06/23 Sergio Ahn PA-C [address] [place] [address] PHYSICIAN MULTINEEDLE SHIRRER 11/10/23 documented as of this encounter
--- OUTSIDE RECORDS SUMMARY | 2025-02-06 19:01 | XMS_ITS | Encounter Summary ---
Author Organization [facility] Address [address] [place] [address] Care Team Providers Care Churn Driller Helper Name Role Phone Jabari Banda MD Primary Care Provider [phone] Klaus Ramos MD Unavailable [phone] Rylee Rocha MD Unavailable Sergio Ahn PA-C Unavailable [phone] Encounter Details Date Type Department Care Team (Late st Contact Info) Description 10/28/2021 Hospital Follow-up Call [facility] Cardiovascular Care Unit [address] [place] [address] Nikki Springer, RN Social History Tobacco Use [...] Sex Assigned at Female 03/23/2024 12:06 PM PAINTER RAILROAD CAR Legal Sex Female 3:27 AM CDT Gender Identity Female 02/11/2023 3:50 PM PAINTER RAILROAD CAR Sexual Orientation Not on file COVID-19 Exposure [...] Rule Out 01/08/2024 01/08/2024 01/08/2024 10:52 PM PAINTER RAILROAD CAR COVID-19 Rule Out 06/18/2024 06/18/2024 06/18/2024 8:01 AM CDT Respiratory Rule Out 06/18/2024 06/18/2024 025 8:01 AM CDT documented as of this encounter Care Teams Churn Driller Helper Relationship Specialty Start Date End Date Jabari Banda MD [address] [place] [address] PCP - General INTERNAL MEDICINE 12/02/15 Klaus Ramos MD [address] [place] [phone] [place] Associate Broker CARDIOVASCULAR DISEASE 07/26/18 10/05/23 Rylee Rocha MD [address] [place] [address] Consulting Physician CARDIOVASCULAR DISEASE 10/06/23 Sergio hAn PA-C [address] [place] [phone] PHYSICIAN CORPORATE HUMAN RESOURCES MANAGER 11/10/23 documented as of this encounter
--- OUTSIDE RECORDS SUMMARY | 2025-02-06 19:01 | XMS_ITS | Encounter Summary ---
Author Organization [facility] Address [address] [place] [address] Care Team Providers Care Jordan Man Name Role Phone Jabari Banda MD Primary Care Provider [phone] Rylee Rocha MD Unavailable Sergio Ahn PA-C Unavailable [phone] Encounter Details Date Type Department Care Team (Late st Contact Info) Description 06/25/2024 Hospital Follow-up Call [facility] Cardiovascular Care Unit [address] [place] [address] Nikki Springer RN Social History Tobacco Use Types Packs/Day Years Used Date Smoking Tobacco: Former Cigarettes 1 30 0 1985 - 05/30/2015 Smokeless Tobacco: Never Comments:Dont smoke Alcohol Use Standard Drinks/Week Comments Not Currently 0 (1 standard drink = 0.6 oz pur e alcohol) Social [facility] Utilities Answer Date Recorded In the past 12 months has e electric, gas, oil, or water [employer] threatened to shut off services in your [...] any time in the past 12 [facility], were you homeless or living in a prison (including now)? No 06/18/2024 Comments No Sex and Gender Information Value Date Recorded Sex Assigned at Female 03/23/2024 12:06 PM MELT SUPERVISOR Legal Sex Female 3:27 AM CDT Gender Identity Female 02/11/2023 3:50 PM MELT SUPERVISOR Sexual Orientation Not on file documented as of this encounter Functional Status * Are you deaf or do you have serious difficulty hearing Answer Date of Assessment Author Status No 06/18/2024 5:12 PM CDT Lili Reynoso , Nurse Aircraft Structural Repairer II Active * Are you blind or do you have serious difficulty seeing, even when wearing glasses? Answer Date of Assessment Author Status No 06/18/2024 5:12 PM CDT Lili Reynoso , Nurse Aircraft Structural Repairer II Active * Do you have serious difficulty walking or climbing stairs? Answer Date of Assessment Author Status No 06/18/2024 5:12 PM CDT Lili Reynoso , Nurse Aircraft Structural Repairer II Active * Do you have difficulty dressing or bathing? Answer Date of Assessment Author Status No 06/18/2024 5:12 PM CDT Lili Reynoso , Nurse Aircraft Structural Repairer II Active * Because of a physical, mental, or emotional condition, do you have difficulty doing errands alone such as visiting a doctor's office or shopping? Answer Date of Assessment Author Status No 06/18/2024 5:12 PM CDT Lili Reynoso , Nurse Aircraft Structural Repairer II Active documented as of this encounter Mental Status * Because of a physical, mental, or emotional condition, do you have serious difficulty concentrating, remembering, or making decisions? Answer Entry Date Author Status No 06/18/2024 5:12 PM CDT Lili Reynoso , Nurse Aircraft Structural Repairer II Active documented in this encounter Plan [...] on filedocumented in this encounter Care Teams Jordan Man Relationship Specialty Start Date End Date Jabari Banda MD [address] [place] [address] PCP - General INTERNAL MEDICINE 12/02/15 Rylee Rocha MD [address] [place] [address] Consulting Physician CARDIOVASCULAR DISEASE 10/06/23 Sergio Ahn PA-C [address] [place] [address] PHYSICIAN CHURCH HISTORY TEACHER 11/10/23 documented as of this encounter
--- OUTSIDE RECORDS SUMMARY | 2025-02-06 19:01 | XMS_ITS | Encounter Summary ---
Author Organization [facility] Address [address] [place] [address] Care Team Providers Care Plisse Machine Operator Name Role Phone Jabari Banda MD Primary Care Provider [phone] Klaus Ramos MD Unavailable [phone] Rylee Rocha MD Unavailable Sergio Ahn PA-C Unavailable [phone] Encounter Details Date Type Department Care Team (Late st Contact Info) Description 12/12/2019 Hospital Follow-up Call [facility] Orthopaedics [address] [place], [place] [phone] Jeri Youssef RN Social History Tobacco Use [...] Sex Assigned at Female 03/23/2024 12:06 PM INSOLE TAPE STITCHER UCO Legal Sex Female 3:27 AM CDT Gender Identity Female 02/11/2023 3:50 PM INSOLE TAPE STITCHER UCO Sexual Orientation Not on file COVID-19 Exposure [...] Time COVID-19 Confirmed 11/25/2019 11/25/2019 12:33 AM INSOLE TAPE STITCHER UCO COVID-19 Rule Out 09/25/2021 09/25/2021 09/26/2021 1:16 AM CDT COVID-19 Rule Out 10/21/2021 10/21/2021 10/22/2021 2:07 PM CDT COVID-19 Rule Out 01/08/2024 01/08/2024 01/08/2024 10:52 PM INSOLE TAPE STITCHER UCO COVID-19 Rule Out 06/18/2024 06/18/2024 06/18/2024 8:01 AM CDT Respiratory Rule Out 06/18/2024 06/18/2024 04/28/2 025 8:01 AM CDT documented as of this encounter Care Teams Plisse Machine Operator Relationship Specialty Start Date End Date Jabari Banda MD [address] [place] [address] PCP - General INTERNAL MEDICINE 12/02/15 Klaus Ramos MD [address] [place] [phone] [employer] Payable Processor CARDIOVASCULAR DISEASE 07/26/18 10/05/23 Rylee Rocha MD [address] [place] [address] Consulting Physician CARDIOVASCULAR DISEASE 10/06/23 Sergio Ahn PA-C [address] [place] [phone] PHYSICIAN SHAREPOINT TRAINER 11/10/23 documented as of this encounter
--- OUTSIDE RECORDS SUMMARY | 2025-02-06 19:01 | XMS_ITS | Encounter Summary ---
Author Organization [facility] Address [address] [place] [address] Care Team Providers Care Form Drafter Name Role Phone Jabari Banda MD Primary Care Provider [phone] Klaus Ramos MD Unavailable [phone] Rylee Rocha MD Unavailable Sergio Ahn PA-C Unavailable [phone] Encounter Details Date Type Department Care Team (Late st Contact Info) Description 05/23/2023 Hospital Follow-up Call [facility] Cardiovascular Care Unit [address] [place] [address] Nikki Springer, RN Social History [...] in a jail (including now)? No 05/16/2023 Comments No Sex and Gender Information Value Date Recorded Sex Assigned at Female 03/23/2024 12:06 PM NECK FITTER Legal Sex Female 3:27 AM CDT Gender Identity Female 02/11/2023 3:50 PM NECK FITTER Sexual Orientation Not on file documented as [...] Rule Out 01/08/2024 01/08/2024 01/08/2024 10:52 PM NECK FITTER COVID-19 Rule Out 06/18/2024 06/18/2024 06/18/2024 8:01 AM CDT Respiratory Rule Out 06/18/2024 06/18/2024 025 8:01 AM CDT documented as of this encounter Care Teams Form Drafter Relationship Specialty Start Date End Date Jabari Banda MD [address] [place] [phone] PCP - General INTERNAL MEDICINE 12/02/15 Klaus Ramos MD [address] [place] [address] [employer] Scientific Artist CARDIOVASCULAR DISEASE 07/26/18 10/05/23 Rylee Rocha MD [address] [place] [address] Consulting Physician CARDIOVASCULAR DISEASE 10/06/23 Sergio Ahn PA-C [address] [place] [address] PHYSICIAN SENIOR ENLISTED ADVISOR 11/10/23 documented as of this encounter
--- OUTSIDE RECORDS SUMMARY | 2025-02-06 19:01 | XMS_ITS | Encounter Summary ---
Author Organization [facility] Address [address] [place] [address] Care Team Providers Care Platen Press Operator Apprentice Name Role Phone Jabari Banda MD Primary Care Provider [phone] Klaus Ramos MD Unavailable [phone] Rylee Rocha MD Unavailable Sergio Ahn PA-C Unavailable [phone] Encounter Details Date Type Department Care Team (Late st Contact Info) Description 05/06/2023 Hospital Orders Only [facility] Anesthesia [address] [place] [address] Griselda Dawson RN Anesthesia Record Procedure Summary Procedure Name Responsible Anesthesiologist Anesthesia Start Time Anesthesia Stop Time XA A-FIB ABLATION Carla Higuera MD 05/10/23 13 22 05/10/23 1835 Events Date Time Event Comment 05/10/2023 1130 1130 AN Anesthesia Prepped 1322 An Start Patient ID and consent checked and patient reassessed. 1322 An Start Data 1326 Nasal Cannula Applied 1337 Quick Note flower shop laborer/designer team a waiting confirmation of cardiology team. [...] Quick Note Isoproterenol s tarted by laborer shellfish processing RN 1749 Quick Note ACT 325 1823 [...] By: Capnography, Auscultation, Chest Rise; Placed By: REAL TIME TRADER; Extubation Assessment: Suctioned, Tolerated well, Patient spontaneously [...] Reason: Patient Discharged 05/10/23 1410 by Heide Szymasnki CRNA 05/11/23 1546 by Tena Davey LPN [...] Sex Assigned at Female 03/23/2024 12:06 PM BELT OPERATOR Legal Sex Female 3:27 AM CDT Gender Identity Female 02/11/2023 3:50 PM BELT OPERATOR Sexual Orientation Not on file documented as [...] Assessment Author Status No 10/21/2021 5:00 PM aMta Sibley RN Active documented as of this [...] Rule Out 01/08/2024 01/08/2024 01/08/2024 10:52 PM BELT OPERATOR COVID-19 Rule Out 06/18/2024 06/18/2024 06/18/2024 8:01 AM CDT Respiratory Rule Out 06/18/2024 06/18/2024 025 8:01 AM CDT documented as of this encounter Care Teams Platen Press Operator Apprentice Relationship Specialty Start Date End Date Jabari Banda MD [address] [place] [phone] PCP - General INTERNAL MEDICINE 12/02/15 Klaus Ramos MD [address] [place] [address] [facility] Director CARDIOVASCULAR DISEASE 07/26/18 10/05/23 Rylee Rocha MD [address] [place] [address] Consulting Physician CARDIOVASCULAR DISEASE 10/06/23 Sergio Ahn PA-C [address] [place] [address] PHYSICIAN RESIDENCE COUNSELOR 11/10/23 documented as of this encounter
--- OUTSIDE RECORDS SUMMARY | 2025-02-06 19:01 | XMS_ITS | Encounter Summary ---
Author Organization [facility] Address [address] [place] [address] Care Team Providers Care Technical Designer Name Role Phone Jabari Banda MD Primary Care Provider [phone] Klaus Ramos MD Unavailable [phone] Rylee Rocha MD Unavailable Sergio Ahn PA-C Unavailable [phone] Encounter Details Date Type Department Care Team (Late st Contact Info) Description 10/01/2021 Hospital Follow-up Call [facility] Cardiovascular Care Unit [address] [place] [address] Nikki Springer, RN Social History [...] Sex Assigned at Female 03/23/2024 12:06 PM BUSINESS DATABASE ANALYST Legal Sex Female 3:27 AM CDT Gender Identity Female 02/11/2023 3:50 PM BUSINESS DATABASE ANALYST Sexual Orientation Not on file COVID-19 Exposure [...] Rule Out 01/08/2024 01/08/2024 01/08/2024 10:52 PM BUSINESS DATABASE ANALYST COVID-19 Rule Out 06/18/2024 06/18/2024 06/18/2024 8:01 AM CDT Respiratory Rule Out 06/18/2024 06/18/2024 025 8:01 AM CDT documented as of this encounter Care Teams Technical Designer Relationship Specialty Start Date End Date Jabari Banda MD [address] [place] [phone] PCP - General INTERNAL MEDICINE 12/02/15 Klaus Ramos MD [address] [place] [address] [place] Shoe Sewing Machine Operator And Tender CARDIOVASCULAR DISEASE 07/26/18 10/05/23 Rylee Rocha MD [address] [place] [address] Consulting Physician CARDIOVASCULAR DISEASE 10/06/23 Sergio Ahn PA-C [address] [place] [address] PHYSICIAN ANIME ARTIST 11/10/23 documented as of this encounter
--- OUTSIDE RECORDS SUMMARY | 2025-02-06 19:01 | XMS_ITS | Encounter Summary ---
Author Organization [facility] Address [address] [place] [address] Care Team Providers Care Cath Lab Nurse Name Role Phone Jabari Banda MD Primary Care Provider [phone] Segundo Cavazos MD Unavailable Unavailab Klaus Dennis MD Unavailable [phone] Rylee Rocha MD Unavailable Sergio Ahn PA-C Unavailable [phone] Reason for Visit * Reason Onset Date Comments Follow Up Call 07/21/2018 Encounter Details Date Type Department Care Team (Late st Contact Info) Description 07/21/2018 Patient Outreach [facility] [address] [place] [address] Nikki Springer, RN Follow Up Call Social [...] Sex Assigned at Female 03/23/2024 12:06 PM RESIDENTIAL PROPERTY CONSULTANT Legal Sex Female 3:27 AM CDT Gender Identity Female 02/11/2023 3:50 PM RESIDENTIAL PROPERTY CONSULTANT Sexual Orientation Not on file documented as [...] CDT COVID-19 Confirmed 11/25/2019 11/25/2019 12:33 AM RESIDENTIAL PROPERTY CONSULTANT COVID-19 Rule Out 11/25/2019 11/25/2019 11/26/2019 12:00 PM CDT COVID-19 Rule Out 09/25/2021 09/25/2021 09/26/2021 1:16 AM CDT COVID-19 Rule Out 10/21/2021 10/21/2021 10/22/2021 2:07 PM CDT COVID-19 Rule Out 01/08/2024 01/08/2024 01/08/2024 10:52 PM RESIDENTIAL PROPERTY CONSULTANT COVID-19 Rule Out 06/18/2024 06/18/2024 06/18/2024 8:01 AM CDT Respiratory Rule Out 06/18/2024 06/18/2024 025 8:01 AM CDT documented as of this encounter Care Teams Cath Lab Nurse Relationship Specialty Start Date End Date Jabari Banda MD [address] [place] [phone] PCP - General INTERNAL MEDICINE 12/02/15 Segundo Cavazos MD [address] [place] [address] CARDIOVASCULAR DISEASE 12/02/15 07/25/18 Klaus Ramos MD [address] [place] [phone] Saline Chimney Repairer CARDIOVASCULAR DISEASE 07/26/18 10/05/23 Rylee Rocha MD [address] [place] [address] Consulting Physician CARDIOVASCULAR DISEASE 10/06/23 Sergio Ahn PA-C [address] [place] [address] PHYSICIAN PHONOGRAPH CARTRIDGE ASSEMBLER 11/10/23 documented as of this encounter
--- OUTSIDE RECORDS SUMMARY | 2025-02-06 19:01 | XMS_ITS | Encounter Summary ---
Author Organization [facility] Address [address] [place] [address] Care Team Providers Care Round Kiln Drawer Name Role Phone Jabari Banda MD Primary Care Provider [phone] Christine Stevens RN Unavailable [phone] Mily Vance LICENSED PRACTICAL NURSE INSTRUCTOR-VP AD SALES WEST Unavailable + Darby Del Real RN Unavailable Unavailable Kaity Bowens Unavailable Unavailable Encounter Details Date Type Department Care Team (Late st Contact Info) Description 08/11/2015 Transitional Care [facility] DISEASE MANAG[facility] [address] [place] [address] Darby Del Real RN Social History Tobacco Use Types Packs/Day Years Used Date Smoking Tobacco: Former Cigarettes 0 Q uit: 05/02/2015 Alcohol Use Standard Drinks/Week Comments Not Asked 0 (1 standard drink = 0.6 oz pur e alcohol) Comments No Sex and Gender Information Value Date Recorded Sex Assigned at Not on file Legal Sex Female 9:41 AM COOKER CASING Gender Identity Not on file Sexual Orientation Not on file documented as of this encounter Functional Status * Question Answer Date of Assessment Author Is [...] on filedocumented in this encounter Care Teams Round Kiln Drawer Relationship Specialty Start Date End Date Jabari Banda MD [address] [place] [address] PCP - General Internal Medicine 05/01/15 Christine Stevens, RN Oriental Medicine Practitioner 05/02/15 Mily Vance APRN-VP AD SALES WEST [address] [facility] [address] [place] [address] Registered Nurse - Cardiopulmonary Rehab 08/04/15 Darby Del Real RN Registered Nurse - Cardiopulmonary Rehab 08/04/15 Kaity Bowens Dialysis Liaison 08/14/15 documented as of this encounter
--- OUTSIDE RECORDS SUMMARY | 2025-02-06 19:01 | XMS_ITS | Encounter Summary ---
Author Organization [facility] Address [address] [place] [address] Care Team Providers Care Training Project Manager Name Role Phone Jabari Banda MD Primary Care Provider [phone] Klaus Ramos MD Unavailable [phone] Rylee Rocha MD Unavailable Sergio Ahn PA-C Unavailable [phone] Encounter Details Date Type Department Care Team (Late st Contact Info) Description 07/29/2018 Abstract [facility] CONVERSION [address] [place], [place] [id number] , Generic Conversion, Social History Tobacco Use [...] Sex Assigned at Female 03/23/2024 12:06 PM APPRENTICE ELECTRICIAN Legal Sex Female 3:27 AM CDT Gender Identity Female 02/11/2023 3:50 PM APPRENTICE ELECTRICIAN Sexual Orientation Not on file documented as [...] COVID-19 Confirmed 11/25/2019 11/25/2019 0 12:33 AM APPRENTICE ELECTRICIAN COVID-19 Rule Out 11/25/2019 11/25/2019 11/26/2019 12:00 PM CDT COVID-19 Rule Out 09/25/2021 09/25/2021 09/26/2021 1:16 AM CDT COVID-19 Rule Out 10/21/2021 10/21/2021 10/22/2021 2:07 PM CDT COVID-19 Rule Out 01/08/2024 01/08/2024 01/08/2024 10:52 PM APPRENTICE ELECTRICIAN COVID-19 Rule Out 06/18/2024 06/18/2024 06/18/2024 8:01 AM CDT Respiratory Rule Out 06/18/2024 06/18/2024 025 8:01 AM CDT documented as of this encounter Care Teams Training Project Manager Relationship Specialty Start Date End Date Jabari Banda MD [address] [place] [address] PCP - General INTERNAL MEDICINE 12/02/15 Klaus Ramos MD [address] [place] [phone] [place] Control Room Agent CARDIOVASCULAR DISEASE 07/26/18 10/05/23 Rylee Rocha MD [address] [place] [address] Consulting Physician CARDIOVASCULAR DISEASE 10/06/23 Sergio Ahn PA-C [address] [place] [phone] PHYSICIAN SENIOR PRINCIPAL PROCESS ENGINEER 11/10/23 documented as of this encounter
--- OUTSIDE RECORDS SUMMARY | 2025-02-06 19:02 | XMS_ITS | Encounter Summary ---
Author Organization [facility] Address [facility] [place] [address] Care Team Providers Care Metal Worker Name Role Phone Jabari Banda MD Primary Care Provider [phone] Klaus Ramos MD Unavailable [phone] Rylee Rocha MD Unavailable Sergio Ahn PA-C Unavailable [phone] Encounter Details Date Type Department Care Team (Late st Contact Info) Description 04/29/2023 Hospital Orders Only [employer] Worker Pre/Post [address] [place] [address] Adithya Owens MD [address] [facility] [address] [id number] Social History Tobacco Use Types Packs/Day Years [...] Sex Assigned at Female 03/23/2024 12:06 PM DYER AND WASHER Legal Sex Female 3:27 AM CDT Gender Identity Female 02/11/2023 3:50 PM DYER AND WASHER Sexual Orientation Not on file documented as [...] Rule Out 01/08/2024 01/08/2024 01/08/2024 10:52 PM DYER AND WASHER COVID-19 Rule Out 06/18/2024 06/18/2024 06/18/2024 8:01 AM CDT Respiratory Rule Out 06/18/2024 06/18/2024 025 8:01 AM CDT documented as of this encounter Care Teams Metal Worker Relationship Specialty Start Date End Date Jabari Banda MD [address] [place] [address] PCP - General INTERNAL MEDICINE 12/02/15 Klaus Ramos MD [address] [place] [phone] Peridot Director Corporate CARDIOVASCULAR DISEASE 07/26/18 10/05/23 Rylee Rocha MD [address] [place] [address] Consulting Physician CARDIOVASCULAR DISEASE 10/06/23 Sergio Ahn PA-C [address] [place] [address] PHYSICIAN DIRECT MAIL CLERK 11/10/23 documented as of this encounter
--- OUTSIDE RECORDS SUMMARY | 2025-02-06 19:02 | XMS_ITS | Encounter Summary ---
Author Organization [facility] Address [address] [place] [address] Care Team Providers Care Front Desk Auxiliary Name Role Phone Jabari Banda MD Primary Care Provider [phone] Klaus Ramos MD Unavailable [phone] yRlee Rocha MD Unavailable Sergio Ahn PA-C Unavailable [phone] Encounter Details Date Type Department Care Team (Late st Contact Info) Description 08/16/2023 Hospital Follow-up Call [facility] Cardiovascular Care Unit [address] [place] [address] Nikki Springer, RN Social History [...] place to sleep or slept in a snf (including now)? No 05/16/2023 Housing Stability Vital [...] time in the past 12 [address], were you homeless or living in a snf (including now)? No 08/12/2023 Comments No Sex and Gender Information Value Date Recorded Sex Assigned at Female 03/23/2024 12:06 PM QUALIFICATIONS EXAMINER Legal Sex Female 3:27 AM CDT Gender Identity Female 02/11/2023 3:50 PM QUALIFICATIONS EXAMINER Sexual Orientation Not on file documented as [...] Rule Out 01/08/2024 01/08/2024 01/08/2024 10:52 PM QUALIFICATIONS EXAMINER COVID-19 Rule Out 06/18/2024 06/18/2024 06/18/2024 8:01 AM CDT Respiratory Rule Out 06/18/2024 06/18/2024 025 8:01 AM CDT documented as of this encounter Care Teams Front Desk Auxiliary Relationship Specialty Start Date End Date Jabari Banda MD [address] [place] [address] PCP - General INTERNAL MEDICINE 12/02/15 Klaus Ramos MD [address] [place] [address] Rickreall Solar Energy Engineer CARDIOVASCULAR DISEASE 07/26/18 10/05/23 Rylee Rocha MD [address] [place] [address] Consulting Physician CARDIOVASCULAR DISEASE 10/06/23 Sergio Ahn PA-C [address] [place] [address] PHYSICIAN TRACTOR TRAILER DRIVER 11/10/23 documented as of this encounter
--- OUTSIDE RECORDS SUMMARY | 2025-02-06 19:03 | XMS_ITS | Encounter Summary ---
Author Organization [facility] Address [address] [place] [address] Care Team Providers Care Clinical Biochemist Name Role Phone Jabari Banda MD Primary Care Provider [phone] Klaus Ramos MD Unavailable [phone] Rylee Rocha MD Unavailable Sergio Ahn PA-C Unavailable [phone] Encounter Details Date Type Department Care Team (Late st Contact Info) Description 08/18/2022 MyChart Message Enc [facility] [address] [place], [place] [phone] Mychart, [facility] Provider Air Quality Message Social History Tobacco [...] Sex Assigned at Female 03/23/2024 12:06 PM FABRICATOR INDUSTRIAL FURNACE Legal Sex Female 3:27 AM CDT Gender Identity Female 02/11/2023 3:50 PM FABRICATOR INDUSTRIAL FURNACE Sexual Orientation Not on file COVID-19 Exposure [...] Rule Out 01/08/2024 01/08/2024 01/08/2024 10:52 PM FABRICATOR INDUSTRIAL FURNACE COVID-19 Rule Out 06/18/2024 06/18/2024 06/18/2024 8:01 AM CDT Respiratory Rule Out 06/18/2024 06/18/2024 025 8:01 AM CDT documented as of this encounter Care Teams Clinical Biochemist Relationship Specialty Start Date End Date Jabari Banda MD [address] [place] [address] PCP - General INTERNAL MEDICINE 12/02/15 Klaus Ramos MD [address] [place] [phone] Reeds Manager Market Development CARDIOVASCULAR DISEASE 07/26/18 10/05/23 Rylee Rocha MD [address] [place] [address] Consulting Physician CARDIOVASCULAR DISEASE 10/06/23 Sergio Ahn PA-C [address] [place] [phone] PHYSICIAN PROCUREMENT CLERK 11/10/23 documented as of this encounter
--- OUTSIDE RECORDS SUMMARY | 2025-02-06 19:03 | XMS_ITS | Clinical Summary ---
Author Organization [facility] Address [address] [place] [address] Care Team Providers Care Group Home Counselor Name Role Phone Jabari Banda MD Primary Care Provider [phone] Rylee Rocha MD Unavailable Sergio Ahn PA-C Unavailable [phone] Allergies No known active allergies Medications [...] 2 (two) times daily. 09/22/19 22 Active NANA-ALLYSON RX 1 MG Tab Take 1 tablet [...] CONCENTRATOR SUPPLY, DME,Indications:CH F (congestive heart failure) (CMS/[facility] HHS/HCC),Acute asthma exacerbation (HHS/HCC),Pulmonar y hypertension (CMS/[facility] HHS/HCC) 1 Device by Nasal route continuous. Nasal Cannula. 3L with activity and nocturnal. Portable Tanks needed. Stationary Concentrator. 1 Device 05/19/19 24 Active [facility], DME,Indications:CH F (congestive heart failure) (CMS/HCC HHS/HCC),Acute asthma exacerbation (HHS/HCC),Pulmonar y hypertension ([facility]/HCC HHS/HCC) 1 Device by Does not apply route as needed. 4 wheeled walker with basket for SOBOE. 1 Device 05/19/19 24 Active albuterol sulfate HFA 108 (90 Base) MCG/ACT inhaler Inhale 2 puffs into the lungs 4 (four) times daily as needed. 07/27/19 24 Active Nebulizers (XENIA LC PLUS NEBULIZER) [facility] USE WITH NEBULIZER DAILY 07/28/19 24 Active metoclopramide (REGLAN) 5 MG tablet [...] needed for Nausea. 30 tablet 09/24/19 Active apixaban (ELIQUIS) 5 MG tablet Take 1 tablet (5 mg total) by mouth 2 (two) times daily. 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 12/16/2015 Hypertension 12/16/2015 [...] Encounters Date Type Department Care Team Description 12/14/2024 Abstract [facility] [address] [place] [address] Abstract, Doc Pccl 11/26/2024 11:25 AM CDT - 11/26/2024 1:07 PM CDT Emergency [facility] [address] [place] [address] [place] [address] Tyree Hall MD Hypertension; Confusion Discharge Disposition: Left Against Medical Advice 11/26/2024 Travel 11/22/2024 Orders Only [facility] [address] [place] [address] Adithya Owens MD 11/21/2024 Telephone [facility] [address] [place] [address] Sergio Ahn PA-C Appointment Reminder from Last 3 Months Immunizations Immunization Administration [...] = 0.6 oz pur e alcohol) Social [facility] Utilities Answer Date Recorded In the past 12 months has e [employer], gas, oil, or water [employer] threatened to shut off services in your [...] any time in the past 12 m [facility], were you homeless or living in a [place] health care facility (including now)? No 06/18/2024 Comments No Sex and Gender Information Value Date Recorded Sex Assigned at Female 03/23/2024 12:06 PM ASSEMBLER PRODUCT Legal Sex Female 3:27 AM CDT Gender Identity Female 02/11/2023 3:50 PM ASSEMBLER PRODUCT Sexual Orientation Not on file Last Filed [...] of 2) 2010 Pneumococcal Vaccine: 50+ Years (3 of 3 - PCV) 12/19/2014 12/19/2013, 07/05/2011 RSV Immunization or 60+ Years (1 - Risk 60-74 years 1-dose series) 2020 COVID-19 Vaccine (1 - season) 2024 Influenza Adult (#1) 2024 10/21/2015, 12/13/2014, 12/19/2013 Hemoglobin A1C 12/13/2024 06/13/2024, 02/22, 08/26/2023, Additional history exists Lipid Panel 06/14/2025 06/14/2024, 07/0 06/2023, 10/29/2022, Additional history exists Hepatitis A Vaccines Aged Out 04/21/2016, 08/27/19 16 No longer eligible based on patient's age to complete this topic Hepatitis C Completed 03/15/2024, 02/22, 11/26/2019, Additional history exists Meningococcal B Vaccine Aged [...] if needed Medical Devices Implanted Type Area Newspaper Writer Device Identifier Shelf Expiration Date Model / Serial / Lot Graft Graft Description:Left arm fistula Iol Burt [id number] - [id number] Implanted:Qty: 1 on 02/07/2018 by Basim Moore MD at [facility] Lens Right: Eye [employer] 10/21/2022 [id number] / [id number] / N/A Description:Implant verified by Iol [employer]urt Sn60wf - [id number] Implanted:Qty: 1 on 03/07/2018 by Basim Moore MD at [facility] Lens Left: Eye [employer] 10/21/2022 [id number] / [id number] / N/A Description:Lens verified pe r surgeon and chart Procedures Procedure Name Priority Date/Time Associated Diagnosis Comments COMPREHENSIVE METABOLIC PANEL Routine 12/10/2024 CBC, MANUAL DIFF Routine 12/10/2024 MAGNESIUM Routine 12/10/2024 XR CHEST PORTABLE STAT 11/26/2024 12: 25 PM CDT ECG 12-LEAD Routine 11/26/2024 12:[address] HEAD WO CON STAT 11/26/2024 12:04 PM CDT LIPID PANEL Routine 06/14/2024 4:23 AM CDT HEMOGLOBIN, GLYCOSYLATED STAT 06/13/2024 8:25 AM CDT HEPATITIS PANEL,ACUTE STAT 11/26/2019 12:09 PM CDT from Last 3 Months or Most Recently Relevant to Health Maintenance Results * (ABNORMAL) COMPREHENSIVE METABOLIC PANEL (12/10/2024) Pathologist [facility] SODIUM S/P/B 129 GLUCOSE 175 mg/dL AST 29 BUN 6 CREATININE S/P/B 4.32(A) 0.5 - 1.0 CALCIUM S/P/B 9.4 POTASSIUM S/P/B 3.6 CHLORIDE S/P/B 97 ALT 16 GFR ESTIMATE 10 Narrative Resulting Agency Comment [facility] [place] Gildarod Pinedo MD LABORATORY Final Resul t * CBC, MANUAL DIFF (12/10/2024) Pathologist [facility] WBC 9.8 HGB 11.8 HCT 34.9 PLT 258 Narrative Resulting Agency Comment [facility] [place] Gildardo Pinedo MD LABORATORY Final Resul t * MAGNESIUM (12/10/2024) Pathologist [facility] MAGNESIUM 1.9 Narrative Resulting Agency Comment [facility] [place] Gildardo Pinedo MD LABORATORY Final Resul t * XR CHEST PORTABLE (11/26/2024 12:25 PM CDT) Anatomical Region Laterality Modality Chest Radiographic Jesica ging 11/26/2024 12:0 4 PM CDT Impressions 11/26/2024 12:16 PM CDT IMPRESSION: 1. Improved congestive changes with residual. 2. No consolidation. 3. Stable cardiomegaly. Ordered By: TYREE HALL Interpreted By: Jerardo Singleton MD, 11/26/2024 12:04 PM Narrative 11/26/2024 12:16 [address] [place] [address] Examination: Portable chest. Exam time: 1155 hours. [...] Procedure Note Jerardo Singleton MD - 11/26/[address] [place] [address] Examination: Portable chest. Exam time: 1155 hours. [...] ECG 12 lead (11/26/2024 12:10 PM CDT) 11/26/2024 12:1 0 PM CDT Narrative [facility] - 11/30/2024 1:45 PM CDT [address] [place] [address] Test Date: 2024-11-26 Pat Name: [facility] Department: 3 Room: EXAM 404 Gender: Female Accordion Repairer: : 1960 Requested By: TYREE HALL Order Number: [id number] Reading MD: Adithya Owens Measurements Intervals [place] Rate: 77 P: -30 VA: 189 QRS: -44 QRSD: 89 T: 132 QT: 402 QTc: 455 Interpretive Statements SINUS RHYTHM LEFT AXIS DEVIATION (POOR R WAVE PROGRESSION) NON-SPECIFIC ST-T WAVE ABNORMALITY Procedure Note Adithya Owens MD - 11/30/[address] [place] [address] Test Date: 2024-11-26 Pat Name: [facility] Department: 3 Room: EXAM 404 Gender: Female Accordion Repairer: : 1960 Requested By: TYREE HALL Order Number: [id number] Reading MD: Adithya Owens Measurements Intervals [place] Rate: 77 P: -30 VA: 189 QRS: -44 QRSD: 89 T: 132 QT: 402 QTc: 455 Interpretive Statements SINUS RHYTHM LEFT AXIS DEVIATION (POOR R WAVE PROGRESSION) NON-SPECIFIC ST-T WAVE ABNORMALITY us Tyree Hall MD ECG ORDERABLES Final Result [facility] * CT HEAD WO CON (11/26/2024 12:04 PM CDT) Anatomical Region Laterality Modality Head Computed Tomogra phy 11/26/2024 12:0 8 PM CDT Impressions 11/26/2024 12:12 PM CDT IMPRESSION: 1. No acute intracranial process identified. 2. Stable cortical atrophy, small vessel disease and chronic infarct as described. Ordered By: TYREE HALL Interpreted By: Jerardo Singleton MD, 11/26/2024 12:08 PM Narrative 11/26/2024 12:12 PM CDT [address] [place] [address] Examination: CT of the head without contrast. [...] Procedure Note Jerardo Singleton MD - 11/26/[address] [place] [address] Examination: CT of the head without contrast. [...] Tyree Hall MD CT Final Result * LIPID PANEL (06/14/2024 4:23 AM CDT) CHOLESTEROL 234 MG/DL 06/14/2024 5:08 AM CDT [facility] Comment:BORDERLINE HIGH: 200 -239 TRIGLYCERIDES 198 MG/DL 06/14/2024 5:08 AM CDT [facility] Comment:150-199 BORDERLINE H IGH HDL 60 >49 MG/DL 06/14/2024 5:08 AM CDT [facility] LDL (CALCULATED) 134 MG/DL 06/15/19 25 5:08 AM CDT [facility] Comment:130-159 BORDERLINE H IGH VLDL CALCULATION 40 MG/DL 06/15/19 25 5:08 AM CDT [facility] Comment:REFERENCE RANGE NOT ESTABLISHED CHOL/HDL RATIO 3.9 06/14/2024 5:08 AM CDT [facility] Comment:REFERENCE RANGE NOT ESTABLISHED LDL/HDL 2.2 06/14/2024 5:08 AM CDT [facility] Comment:REFERENCE RANGE NOT ESTABLISHED NON HDL CHOLESTEROL 174 MG/DL 06/14/2024 5:08 AM CDT [facility] Comment:REFERENCE RANGE NOT ESTABLISHED 06/14/2024 4:23 AM CDT Kellee [place] MD LABORATORY Final Resul t Performing Organization Address [facility] Co de Phone Number [facility] [address] [place] [address], [phone] * (ABNORMAL) HEMOGLOBIN, GLYCATED (06/13/2024 8:25 AM CDT) HGB A1C 6.7(H) <5.7 % 06/13/2024 2:54 PM CDT [facility] ESTIMATED AVG GLUCOSE 146(H) 74 - 114 MG/DL 06/13/2024 2:54 PM CDT [facility] 06/13/2024 8:25 AM CDT Ami Campo NP LABORATORY Final Result Performing Organization Address [facility] Co de Phone Number [facility] [address] [place] [address], [phone] * (ABNORMAL) HEPATITIS PANEL,ACUTE (11/26/2019 12:09 PM CDT) HEPATITIS B SURFACE AG NON-REACT REFUGIO NON-REACT REFUGIO 11/27/2019 1:29 AM CDT [facility] Comment:HBsAg NOT DETECTED. HEP B CORE IGM NON-REACT REFUGIO NON-REACT REFUGIO 11/27/2019 1:29 AM CDT [facility] Comment: IgM ANTI HBc NOT DETECTED. DOES NOT EXCLUDE THE POSSIBILITY OF EXPOSURE TO OR INFECTION WITH HBV. NO RETEST REQUIRED. HIGH DOSES OF BIOTIN MAY INTERFERE WITH THIS TEST RESULT. CORRELATION TO CLINICAL HISTORY AND PRESENTATION RECOMMENDED. HAV IGM NON-REACT REFUGIO NON-REACT REFUGIO 11/27/2019 1:29 AM CDT [facility] Comment: IgM ANTI HAV NOT DETECTED. DOES NOT EXCLUDE THE POSSIBILITY OF EXPOSURE TO OR INFECTION WITH HAV. LEVELS OF IgM ANTI HAV MAY BE BELOW THE CUTOFF IN EARLY INFECTION. HEPATITIS C AB REACTIVE( A) NON-REACT REFUGIO 11/27/2019 1:29 AM CDT [facility] Comment: PRESUMPTIVE EVIDENCE OF ANTIBODIES TO HCV. CONSIDER ORDERING HCV RNA DETECTION AND QUANTIFICATION BY RT-PCR ANALYSIS ON A NEW SPECIMEN. 11/26/2019 12:0 9 PM CDT Marlyn Robin MD LABORATORY Final Result [facility] [address] [place] [address], [phone] from Last 3 Months or Most Recently Relevant to Health Maintenance Insurance [address] [place] [address] MEDICAID MEDICARE MEDICARE MEDICAID MEDICAID MEDICARE Advance [...] 11:40 AM 05/20/2023 4:01 PM Care Teams Group Home Counselor Relationship Specialty Start Date End Date Jabari Banda MD [address] [place] [address] PCP - General INTERNAL MEDICINE 12/02/15 Rylee Rocha MD [address] [place] [address] Consulting Physician CARDIOVASCULAR DISEASE 10/06/23 Sergio Ahn PA-C [address] [place] [address] PHYSICIAN GEAR HOBBER OPERATOR 11/10/23
--- OUTSIDE RECORDS SUMMARY | 2025-02-06 19:03 | XMS_ITS | Clinical Summary ---
Author Organization [facility] Address [address] [place] [address] Phone Care Team Providers Care Sales Data Analyst Name Role Phone Provider, None Primary Care Provider Unavailabl e Allergies No known active allergies Medications Eliquis 5 MG Tablet Take 5 mg by mouth 2 times daily. 4 Active B Yjfleml-H-Vhpig Acid (Deepa-Vikash Rx) 1 MG Tablet Take [...] Years Used Date Smoking Tobacco: Never Assessed [facility] Utilities Answer Date [...] any time in the past 12 m [facility], were you homeless or living in a long-term (including now)? Patient declined 03/13/2024 Comments Unknown Sex and Gender Information Value Date Recorded Sex Assigned at Not on file Legal Sex Female 9:03 AM SPIRITUAL MINISTER Gender Identity Not on file Sexual Orientation Not on file Last Filed Vital Signs Vital Sign Reading Time Taken Comments Blood Pressure 184/65 03/15/2024 2:00 PM SPIRITUAL MINISTER Pulse 74 03/15/2024 2:00 PM SPIRITUAL MINISTER Temperature 36.5 C (97.7 F) 03/15/2024 2:00 PM SPIRITUAL MINISTER Respiratory Rate 18 03/15/2024 2:00 PM SPIRITUAL MINISTER Oxygen Saturation 97% 03/15/2024 8:02 AM SPIRITUAL MINISTER Inhaled Oxygen Concentration - - Weight 97.8 kg (215 lb 9.8 oz) 03/14/2024 2:30 P M SPIRITUAL MINISTER Height 165.1 cm (5' 5) 03/13/2024 2:33 PM SPIRITUAL MINISTER Body Mass Index 35.88 03/13/2024 2:33 PM SPIRITUAL MINISTER Plan of Treatment Health Maintenance Due Date Last Done Comments Diabetes: Eye Exam 1960 Diabetes: Foot Exam 1960 Mammogram 1960 TdaP Immunization 1960 Pap Smear 1981 Cervical Cancer Screening (CCS) 1990 HPV/Cotest 1990 Cologuard 2005 Colonoscopy 2005 Colorectal Cancer Screening 2005 Immunochemical Fecal Occult Blood 2005 Respiratory Syncytial Virus (RSV) Immunization (Adult) (1 - Risk 50-74 years 1-dose series) 2010 Zoster Immunization (1 of 2) 2010 Medicare Initial AWV [id number] 11/21/2014 Pneumococcal Immunization (50+ years) (3 of 3 - PCV) 12/19/2014 12/19/2013, 07/05/2011 Hepatitis B Immunization (3 of 3 - Hep B Twinrix 3-dose series) 09/21/2016 04/21/2016, 08/27/2015 Diabetes: Hemoglobin A1c 09/11/2024 03/14/2024, 07/0 06/2023 Influenza Immunization (#1) 2024/, 12/13/2014, 12/19/2013 SARS-COV-2 Immunization ( - season) 2024 Diabetes: Nephropathy Screening 03/13/2025 03/13/2024 Hepatitis C Virus (HCV) Screening Completed 03/15/2024, 03/14/2024, 11/26/2019, Additional history exists Human Papillomavirus (HPV) Immunization (No Doses Required) Completed Meningococcal Immunization (ACWY) Aged Out No longer eligible based on patient's age to complete this topic Rotavirus Immunization Aged Out No lo nger eligible based on patient's age to complete this topic Procedures Procedure Name Priority Date/Time Associated Diagnosis Comments HEPATITIS C RNA QUANT PCR VIRAL LOAD Routine 03/15/2024 5:50 AM SPIRITUAL MINISTER HEMOGLOBIN A1C W/ ESTIMATED GLUCOSE Routine 03/14/2024 4:22 AM SPIRITUAL MINISTER CMP (COMPREHENSIVE METABOLIC PANEL) 03/13/2024 12:00 AM SPIRITUAL MINISTER from Last 3 Months or Most Recently Relevant to Health Maintenance Results * Hepatitis C RNA Quant PCR Viral Load (03/15/2024 5:50 AM SPIRITUAL MINISTER) [facility] HCV RNA QUANT PCR NON DETECTED NON DETECTED 03/15/2024 11:56 PM SPIRITUAL MINISTER [facility] HCV RNA QT LOG10 03/15/2024 11:56 PM SPIRITUAL MINISTER [facility] Comment: LOG 10 is not applicable. This test was performed using IRON 5800 Real Time PCR. Blood Venipuncture / Unknown 03/15/2024 5:50 AM SPIRITUAL MINISTER 03/15/2024 5:59 AM SPIRITUAL MINISTER us Crystal Amador MD IMMUNOLOGY ORDERABLES F inal Result [facility] [address] [place] [address], * (ABNORMAL) Hemoglobin A1C (if indicated) (03/14/2024 4:22 AM SPIRITUAL MINISTER) [facility] HGB-A1C 6.4(H) 4.0 - 6.0 % 03/14/2024 6:12 AM SPIRITUAL MINISTER [facility] Est Average Glucose 137.0 mg/dL 03/14/2024 6:12 AM SPIRITUAL MINISTER [facility] Blood Venipuncture / Unknown 03/14/2024 4:22 AM SPIRITUAL MINISTER 03/14/2024 5:45 AM SPIRITUAL MINISTER Narrative [facility] - 03/14/2024 6:12 AM SPIRITUAL MINISTER HEMOGLOBIN A1C: DIABETIC PATIENTS: WELL-CONTROLLED: 6.2 - 7.0 INTERMEDIATE WELL-CONTROLLED: 7.0 - 9.0 POORLY-CONTROLLED: >9.0 Specimens containing greater than 5% of Hemoglobin F may result in lower than expected % HbA1C results. us Jillian Castillo COREROOM FOUNDRY LABORER, FLOORING SALES MANAGER CHEMISTRY ORDERABLES Final Result Performing Organization Address City/[facility]/ZIP Co de Phone Number [facility] [place] [address] * CMP (Comprehensive Metabolic Panel) (03/13/2024 12:00 AM SPIRITUAL MINISTER) 03/13/2024 us Provider Scan CHEMISTRY ORDERABLES Final Resul t SCAN from Last 3 Months or Most Recently Relevant to Health Maintenance Insurance [address] [place] [address] MEDICAID [place] MEDICARE Advance Directives * Full Code (Latest Code Status on File) Date Activated Date Inactivated Comments 03/13/2024 6:23 PM CPR-Full Treat ment: FULL ARREST: Attempt Resuscitation/CPR wit intubation and mechanical ventilation. PRE-ARREST: Use entire range of life support measures to stabilize the patient. Care Teams Sales Data Analyst Relationship Specialty Start Date End Date Provider, None [place] PCP - General 03/13/24
--- OUTSIDE RECORDS SUMMARY | 2025-02-06 19:03 | XMS_ITS | Encounter Summary ---
Author Organization [facility] Address [address] [place] [address] Care Team Providers Care Engineering Instructor Name Role Phone Jabari Banda MD Primary Care Provider [phone] Klaus Ramos MD Unavailable [phone] Rylee Rocha MD Unavailable Sergio Ahn PA-C Unavailable [phone] Encounter Details Date Type Department Care Team (Latest Contact Info) Description 08/16/[address] [employer] Message Enc [facility] [address] [place] [address] Dev, [facility] Provider discharge follow up call Social History [...] a nursing home (including now)? No 05/16/2023 Housing Stability [...] any time in the past 12 m [facility], were you homeless or living in a nursing home (including now)? No 08/12/2023 Comments No Sex and Gender Information Value Date Recorded Sex Assigned at Female 03/23/2024 12:06 PM ROOFER VIN[employer] COATING Legal Sex Female 3:27 AM CDT Gender Identity Female 02/11/2023 3:50 PM ROOFER VINYL COATING Sexual Orientation Not on file documented as [...] Rule Out 01/08/2024 01/08/2024 01/08/2024 10:52 PM ROOFER [employer]ATING COVID-19 Rule Out 06/18/2024 06/18/2024 06/18/2024 8:01 AM CDT Respiratory Rule Out 06/18/2024 06/18/2024 025 8:01 AM CDT documented as of this encounter Care Teams Engineering Instructor Relationship Specialty Start Date End Date Jabari Banda MD [address] [place] [address] PCP - General INTERNAL MEDICINE 12/02/15 Klaus Ramos MD [address] [place] [address] Huntley Accounting Assistant CARDIOVASCULAR DISEASE 07/26/18 10/05/23 Rylee Rocha MD [address] [place] [address] Consulting Physician CARDIOVASCULAR DISEASE 10/06/23 Sergio Ahn PA-C [address] [place] [address] PHYSICIAN EXTRACTIONS TECHNICIAN 11/10/23 documented as of this encounter
--- NOTE | 2025-02-06 19:07 | PC.NURSE ---
Handoff report given to KYLE Martinez. MD Best updated on dressing not being stocked at [facility].
[2025-02-06] MEDS: NEOMYCIN/POLYMYXIN/BACITRACIN OINTMENT PACKET 1 PACKET TOPICAL (19:24)
== END 2025-02-06 19:40 | disposition home or self-care (01) ==
PROVIDERS: Emergency Provider Emergency Medicine; PCP Internal Medicine
DX: S61.411A Laceration without foreign body of right hand, initial encounter (principal); I13.2 Hypertensive heart and chronic kidney disease with heart failure and with stage 5 chronic kidney disease, or end stage renal disease; I50.9 Heart failure, unspecified; N18.6 End stage renal disease; E11.22 Type 2 diabetes mellitus with diabetic chronic kidney disease; E78.5 Hyperlipidemia, unspecified; I25.10 Atherosclerotic heart disease of native coronary artery without angina pectoris; E03.9 Hypothyroidism, unspecified; Z99.2 Dependence on renal dialysis; Z86.73 Personal history of transient ischemic attack (TIA), and cerebral infarction without residual deficits; Z87.891 Personal history of nicotine dependence; W22.8XXA Striking against or struck by other objects, initial encounter
CPT/HCPCS: 73130; 99283; A9270